=== PATIENT | male | born 1935 | race Caucasian/White ===

== ENCOUNTER 2016-11-06 04:53 | Observation (INO) | payer MEDICARE, OTHER ==
[~2016-11-06] VITALS: Ht 175.3 cm; Wt 75.0 kg
[2016-11-06] VITALS (8 sets, daily range): BP systolic 128–152; BP diastolic 56–80; PULSE 77–110; RESP 17–20; TEMP 96.2–98.7; O2SAT 96–99
[~2016-11-06 04:53] MED LIST: CIPR500T2 PO; DARV PO; LORT5TAB PO; TERA10CA3 PO
--- NOTE | 2016-11-06 05:09 | PD ---
HPI Chief Complaint: hematuria Time Seen by Provider: 04:57 Travel History International Travel<30 days: No Contact w/Intl Traveler<30days: No Traveled to known affect area: No History of Present Illness HPI The patient is a 81-year-old male who presents emergency department via EMS for difficulty urination and hematuria. The patient does have a history of benign prostatic hypertrophy with previous surgery and Ma catheter placement. The patient notes increasing pain or last several days with difficulty urinating as well as hematuria. EMS states the patient had blood within his adult diapers as well as over his palmar legs down to his left leg. The patient denies taking any blood thinners, however, cannot recall the name of the medication his doctor prescribes him. The patient denies any nausea, vomiting, or abdominal pain. He does complain of suprapubic discomfort and pain with urination. PFSH Past Medical History Autoimmune Disease: No Blood Disorders: No Cancer: No Diabetes: No Endocrine: No Gastrointestinal Disorders: No Genitourinary: Yes Hypertension: Yes Immune Disorder: No Musculoskeletal: No Neurologic: No Psychiatric: No Respiratory: No Thyroid Disease: No Past Surgical History AICD: No Joint Replacement: No Pacemaker: No Other Surgery: Yes (ENLARGED PROSTATE, SURGERY ON 08/21/07) Social History Alcohol Use: No Tobacco Use: No Substance Use: No Allergies-Medications (Allergen,Severity, Reaction): Coded Allergies: No Known Allergies (Verified , 11/06/16) Reported Meds & Prescriptions Reported Meds & Active Scripts Active Darvocet-N 100 (Propoxyphene Napsylate/Acetam) Tab 1 Tab PO Q4-6HPRN FOR PAIN Cipro (Ciprofloxacin) 500 Mg Tab 500 Mg PO BID Darvocet-N 100 (Propoxyphene Napsylate/Acetam) Tab 1 Tab PO Q4-6HPRN FOR PAIN Reported Hytrin (Terazosin HCl) 10 Mg Cap 10 Mg PO HS Cipro (Ciprofloxacin) 500 Mg Tab 500 Mg PO BID Lortab 5/500 (Acetaminophen/Hydrocodone Bitart) 5 Mg/500 Mg Tab 1-2 Tab PO Q4- 6HPRN FOR PAIN Review of Systems Except as stated in HPI: all other systems reviewed are Neg General / Constitutional: No: Fever Gastrointestinal: No: Nausea, Vomiting, Abdominal Pain Genitourinary: Positive: Hematuria, Pelvic Pain (suprapubic discomfort) Physical Exam Narrative GENERAL: Awake, alert, pleasant 81-year-old male who appears his stated age and is in no acute respiratory distress. SKIN: Warm and dry. HEAD: Atraumatic. Normocephalic. EYES: Pupils equal and round. No scleral icterus. No injection or drainage. ENT: No nasal bleeding or discharge. Mucous membranes pink and moist. NECK: Trachea midline. No JVD. GASTROINTESTINAL: Abdomen soft, non-tender, nondistended. No rebound tenderness. No obvious distention. Genitourinary: Circumcised phallus with blood at the meatus. Blood in the inside of the adult diapers. Both testicles are descended and nontender. MUSCULOSKELETAL: No obvious deformities. No clubbing. No cyanosis. No edema. NEUROLOGICAL: Awake and alert. No obvious cranial nerve deficits. Motor grossly within normal limits. Normal speech. PSYCHIATRIC: Appropriate mood and affect; insight and judgment normal. Data Data Last Documented VS Vital Signs Date Time Temp Pulse Resp B/P Pulse Ox O2 Delivery O2 Flow Rate FiO2 11/06/16 05:13 98.7 104 20 135/80 99 Orders Complete Blood Count With Diff (11/06/16 05:02) Basic Metabolic Panel (Bmp) (11/06/16 05:02) Urinalysis - C+S If Indicated (11/06/16 05:02) Act Partial Throm Time (Ptt) (11/06/16 05:02) Prothrombin Time / Inr (Pt) (11/06/16 05:02) Urinary Catheter Insert/Apply (11/06/16 05:02) Morphine Inj (Morphine Inj) (11/06/16 06:45) Ondansetron Inj (Zofran Inj) (11/06/16 06:45) Consult Urology (11/06/16 ) Urine Culture (11/06/16 06:05) (Hub Use Only)Inp Phy Cons/Ref (11/06/16 06:56) Ceftriaxone Inj (Rocephin Inj) (11/06/16 07:00) Admit Order (Ed Use Only) (11/06/16 06:57) Labs Laboratory Tests Test 11/06/16 11/06/16 05:10 06:05 White Blood Count 10.7 TH/MM3 Red Blood Count 4.14 MIL/MM3 Hemoglobin 12.4 GM/DL Hematocrit 36.6 % Mean Corpuscular Volume 88.5 FL Mean Corpuscular Hemoglobin 29.9 PG Mean Corpuscular Hemoglobin 33.7 % Concent Red Cell Distribution Width 17.5 % Platelet Count 183 TH/MM3 Mean Platelet Volume 9.5 FL Neutrophils (%) (Auto) 87.1 % Lymphocytes (%) (Auto) 9.1 % Monocytes (%) (Auto) 3.4 % Eosinophils (%) (Auto) 0.2 % Basophils (%) (Auto) 0.2 % Neutrophils # (Auto) 9.3 TH/MM3 Lymphocytes # (Auto) 1.0 TH/MM3 Monocytes # (Auto) 0.4 TH/MM3 Eosinophils # (Auto) 0.0 TH/MM3 Basophils # (Auto) 0.0 TH/MM3 CBC Comment DIFF FINAL Differential Comment Prothrombin Time 10.9 SEC Prothromb Time International 1.0 RATIO Ratio Activated Partial 25.3 SEC Thromboplast Time Sodium Level 142 MEQ/L Potassium Level 3.7 MEQ/L Chloride Level 109 MEQ/L Carbon Dioxide Level 24.4 MEQ/L Anion Gap 9 MEQ/L Blood Urea Nitrogen 23 MG/DL Creatinine 1.19 MG/DL Estimat Glomerular Filtration 59 ML/MIN Rate Random Glucose 159 MG/DL Calcium Level 7.7 MG/DL Urine Color DARK-RED Urine Turbidity CLOUDY Urine pH 6.5 Urine Specific [employer] 1.025 Urine Protein 100 mg/dL Urine Glucose (UA) NEG mg/dL Urine Ketones NEG mg/dL Urine Occult Blood MOD Urine Nitrite NEG Urine Bilirubin NEG Urine Urobilinogen LESS THAN 2.0 MG/DL Urine Leukocyte Esterase TRACE Urine RBC /hpf Urine WBC /hpf Microscopic Urinalysis Comment CULTURE INDICATED MDM Medical Decision Making Medical Screen Exam Complete: Yes Emergency Medical Condition: Yes Medical Record Reviewed: Yes Interpretation(s) Laboratory Tests Test 11/06/16 11/06/16 05:10 06:05 White Blood Count 10.7 TH/MM3 Red Blood Count 4.14 MIL/MM3 Hemoglobin 12.4 GM/DL Hematocrit 36.6 % Mean Corpuscular Volume 88.5 FL Mean Corpuscular Hemoglobin 29.9 PG Mean Corpuscular Hemoglobin 33.7 % Concent Red Cell Distribution Width 17.5 % Platelet Count 183 TH/MM3 Mean Platelet Volume 9.5 FL Neutrophils (%) (Auto) 87.1 % Lymphocytes (%) (Auto) 9.1 % Monocytes (%) (Auto) 3.4 % Eosinophils (%) (Auto) 0.2 % Basophils (%) (Auto) 0.2 % Neutrophils # (Auto) 9.3 TH/MM3 Lymphocytes # (Auto) 1.0 TH/MM3 Monocytes # (Auto) 0.4 TH/MM3 Eosinophils # (Auto) 0.0 TH/MM3 Basophils # (Auto) 0.0 TH/MM3 CBC Comment DIFF FINAL Differential Comment Prothrombin Time 10.9 SEC Prothromb Time International 1.0 RATIO Ratio Activated Partial 25.3 SEC Thromboplast Time Sodium Level 142 MEQ/L Potassium Level 3.7 MEQ/L Chloride Level 109 MEQ/L Carbon Dioxide Level 24.4 MEQ/L Anion Gap 9 MEQ/L Blood Urea Nitrogen 23 MG/DL Creatinine 1.19 MG/DL Estimat Glomerular Filtration 59 ML/MIN Rate Random Glucose 159 MG/DL Calcium Level 7.7 MG/DL Urine Color DARK-RED Urine Turbidity CLOUDY Urine pH 6.5 Urine Specific [employer] 1.025 Urine Protein 100 mg/dL Urine Glucose (UA) NEG mg/dL Urine Ketones NEG mg/dL Urine Occult Blood MOD Urine Nitrite NEG Urine Bilirubin NEG Urine Urobilinogen LESS THAN 2.0 MG/DL Urine Leukocyte Esterase TRACE Urine RBC /hpf Urine WBC /hpf Microscopic Urinalysis Comment CULTURE INDICATED Differential Diagnosis Differential diagnosis includes BPH, urethral stricture, hemorrhagic cystitis, UTI, bladder cancer, obstructive uropathy. Narrative Course IV was established, labs are drawn and sent, and the patient was placed on cardiac telemetry monitoring and continuous pulse oximetry monitoring. Ma catheter was placed and UA was sent to lab. The patient had significant spasm with Ma catheter in place with very little output. Therefore, the Ma was irrigated with minimal output. Therefore, continuous bladder irrigation was started, the patient appeared to have significant hematuria with irrigation and significant pain. The patient was then provided morphine and Zofran for his discomfort and a larger Ma catheter was placed. The patient continue to have spasm, however, did have output with continuous bladder irrigation. The patient will need 23 hour observation and urology evaluation. Therefore, the on -call urologist was paged at 6:47 AM. The patient does not know the name of his primary physician, therefore, the on-call medical service was paged for observation. I discussed the plan of care with Dr. Scaglia, the on-call urologist, who agrees with continuous bladder irrigation reevaluation by Titi Bueno, the orthopedic/urology radio electronics technician. The UA did reveal innumerable RBCs and WBCs, therefore, patient was covered with Rocephin 1 g intravenously. Patient will be 23 hour observation, the patient and family are comfortable with this plan of care and disposition. Physician Communication Physician Communication The on-call medical service was paged for observation. The on-call urologist was also paged. I discussed the patient with Dr. Roberts. I discussed the patient with Dr. Kenyon who agrees with 23 hour observation. Diagnosis Primary Impression: Obstructive uropathy Additional Impression: Hematuria Admitting Information Admitting Physician Requests: Observation Condition: Stable Ryan Avitia MD Nov 06, 2016 05:09
[2016-11-06 05:44] LABS: AUTOMATED NEUTROPHIL # 9.3 TH/MM3 (1.8-7.7); BASOPHIL % 0.2 % (0.0-2.0); EOSINOPHIL % 0.2 % (0.0-4.0); HEMATOCRIT 36.6 % (39.0-51.0); HEMO FLAGS DIFF FINAL; LYMPH % 9.1 % (9.0-44.0); MEAN CELL VOLUME 88.5 FL (80.0-100.0); MEAN CORPUSCULAR HEMOGLOBIN 29.9 PG (27.0-34.0); MEAN CORPUSCULAR HGB CONC 33.7 % (32.0-36.0); MONO % 3.4 % (0.0-8.0); NEUT % 87.1 % (16.0-70.0); PLATELET COUNT 183 TH/MM3 (150-450); RED BLOOD COUNT 4.14 MIL/MM3 (4.50-5.90); RED CELL DISTRIBUTION WIDTH 17.5 % (11.6-17.2); WHITE BLOOD COUNT 10.7 TH/MM3 (4.0-11.0)
[2016-11-06 05:54] LABS: APTT (PATIENT) 25.3 SEC (24.3-30.1); BICARBONATE 24.4 MEQ/L (21.0-32.0); POTASSIUM 3.7 MEQ/L (3.5-5.1); PROTHROMBIN TIME - PATIENT 10.9 SEC (9.8-11.6)
[2016-11-06] MEDS ORDERED: MORPHINE SULFATE 4 MG/ML INJ IV PUSH ONE (06:45)
[2016-11-06] MEDS ORDERED: ONDANSETRON HCL 4 MG/2 ML VIAL IV PUSH ONE ×2 (06:45→12:00)
[2016-11-06 06:52] LABS: BLOOD, URINE MOD (NEG); GLUCOSE,URINE NEG (NEG); KETONE, URINE NEG (NEG); NITRITE,URINE NEG (NEG); PH, URINE 6.5 (5.0-8.5); URINE COLOR DARK-RED (YELLW/STRAW)
[2016-11-06 06:53] LABS: COMMENT (UR) CULTURE INDICATED; CULTURE IF INDICATED CULTURE INDICATED
[2016-11-06] MEDS ORDERED: cefTRIAXone INJ 1,000 MG in SODIUM CHLORIDE 0.9% INJ 100 ML IV ONE (07:00)
[2016-11-06] MEDS ORDERED: SODIUM CHLORIDE 0.9% FLUSH 5 ML FLUSH FLUSH PRN (07:15)
[2016-11-06] MEDS ORDERED: NALOXONE HCL 0.4 MG/ML AMP IV PRN (07:15)
[2016-11-06] MEDS: MORPHINE SULFATE 4 MG/ML INJ IV PUSH PRN ×2 (08:25→12:31)
[2016-11-06] MEDS: SODIUM CHLORIDE 0.9% FLUSH 5 ML FLUSH FLUSH SCH ×2 (09:00→21:34)
--- NOTE | 2016-11-06 09:11 | HHI.HP ---
[facility] Unknown Admission Diagnosis obstructive uropathy with hematuria, complicated UTI Diagnoses: Chief Complaint: Hematuria Travel History International Travel<30 Days: No Contact w/Intl Traveler <30 Da: No Traveled to Known Affected Are: No History of Present Illness 81-year-old male with history of BPH and questionable hypertension who presented with gross hematuria. He is a very poor historian and I get a sense that he does not follow regularly with . He reports a history of enlarged prostate and previously saw a urologist but he does not know the name. He knows he takes one medication for his prostate. Patient reports the hematuria started yesterday and went on all day. He called EMS when the hematuria persisted and he continues to experience persistent pain in the suprapubic area and during urination. He denies any nausea or vomiting. No fevers or chills. ER physician discussed the case with urology recommended admission for further workup and treatment. Patient currently with ongoing bladder irrigation. He is still draining pink fluid and at times as clot around the Ma. He reports that the pain improves with morphine but he still have episodes of spasm. Review of Systems Constitutional: DENIES: Fatigue, Fever, Night Sweats Genitourinary: COMPLAINS OF: Urgency, Hematuria, Dysuria Except as stated in HPI: all other systems reviewed are Neg Past Family Social History Past Medical History BPH Hypertension Past Surgical History TURP Reported Medications "Prostate medication" patient does not know the name. Allergies: Coded Allergies: No Known Allergies (Verified , 11/06/16) Family History Father of heart attack. Social History Patient denies using tobacco, alcohol or illicit drugs. Physical Exam Vital Signs Vital Signs Date Time Temp Pulse Resp B/P Pulse Ox O2 Delivery O2 Flow Rate FiO2 11/06/16 07:12 98.4 110 18 152/71 98 Room Air 11/06/16 05:13 98.7 104 20 135/80 99 Physical Exam GENERAL: Elderly male. He appears to be in some discomfort. SKIN: No rashes, ecchymoses or lesions. Cool and dry. NECK: Trachea midline. No JVD or lymphadenopathy. Supple, nontender, no meningeal signs. CARDIOVASCULAR: Regular rate and rhythm without murmurs, gallops, or rubs. RESPIRATORY: Clear to auscultation. Breath sounds equal bilaterally. No wheezes , rales, or rhonchi. GASTROINTESTINAL: Abdomen soft, he does have some suprapubic tenderness : Ma is in place plan. Some bloody fluid drainage around the Ma MUSCULOSKELETAL: Extremities without clubbing, cyanosis, or edema. Negative Homans sign bilaterally. NEUROLOGICAL: Awake and alert. Normal speech. Laboratory Laboratory Tests Test 11/06/16 11/06/16 05:10 06:05 White Blood Count 10.7 Red Blood Count 4.14 Hemoglobin 12.4 Hematocrit 36.6 Mean Corpuscular Volume 88.5 Mean Corpuscular Hemoglobin 29.9 Mean Corpuscular Hemoglobin 33.7 Concent Red Cell Distribution Width 17.5 Platelet Count 183 Mean Platelet Volume 9.5 Neutrophils (%) (Auto) 87.1 Lymphocytes (%) (Auto) 9.1 Monocytes (%) (Auto) 3.4 Eosinophils (%) (Auto) 0.2 Basophils (%) (Auto) 0.2 Neutrophils # (Auto) 9.3 Lymphocytes # (Auto) 1.0 Monocytes # (Auto) 0.4 Eosinophils # (Auto) 0.0 Basophils # (Auto) 0.0 CBC Comment DIFF FINAL Differential Comment Prothrombin Time 10.9 Prothromb Time International 1.0 Ratio Activated Partial 25.3 Thromboplast Time Sodium Level 142 Potassium Level 3.7 Chloride Level 109 Carbon Dioxide Level 24.4 Anion Gap 9 Blood Urea Nitrogen 23 Creatinine 1.19 Estimat Glomerular Filtration 59 Rate Random Glucose 159 Calcium Level 7.7 Urine Color DARK-RED Urine Turbidity CLOUDY Urine pH 6.5 Urine Specific [place] 1.025 Urine Protein 100 Urine Glucose (UA) NEG Urine Ketones NEG Urine Occult Blood MOD Urine Nitrite NEG Urine Bilirubin NEG Urine Urobilinogen LESS THAN 2.0 Urine Leukocyte Esterase TRACE Urine RBC Urine WBC Microscopic Urinalysis Comment CULTURE INDICATED Date/Time Procedure Status Source Growth 11/06/16 06:05 Urine Culture Received Urine Clean Catch Pending Result Diagram: 11/06/16 0510 11/06/16 0510 Assessment and Plan Problem List: (1) Obstructive uropathy ICD Code: N13.9 Status: Acute (2) Hematuria ICD Code: R31.9 Status: Acute (3) BPH (benign prostatic hyperplasia) ICD Code: N40.0 Status: Acute (4) Hypertension ICD Code: I10 Status: Acute Assessment and Plan 81-year-old male with gross hematuria probably due to obstructive uropathy. Obstructive uropathy, hematuria: Known history of BPH. Patient does not know the name of his urologist. - On-call urologist has been consulted. Appreciate recommendations. - Ongoing bladder irrigation. Continue. - Morphine as needed for pain control. Will add Detrol to help with spasm. Acute blood loss anemia: Secondary to above. - Follow serial H&H and transfuse for hemoglobin less than 8. Hypertension: Currently on no medications at home. Blood pressure. Be acceptable. - Continue to monitor. Vasotec as needed. Abnormal urinalysis: He has been given Rocephin. Follow urine culture. Marah Lyon MD Nov 06, 2016 09:11
[2016-11-06] MEDS: OXYBUTYNIN CHLORIDE 5 MG TAB PO SCH ×3 (09:48→21:34)
[2016-11-06] MEDS: TAMSULOSIN HCL 0.4 MG CAP PO SCH (09:48)
[2016-11-06 11:42] LABS: HEMATOCRIT 34.8 % (39.0-51.0)
[2016-11-06 11:44] LABS: REVIEW FLAG FINAL
[2016-11-06] MEDS ORDERED: ePHEDrine/NS 25 MG/5 ML SYR IV ONE (12:00)
[2016-11-06] MEDS ORDERED: LACTATED RINGER'S 1000 ML INJ 1,000 ML IV ONE (12:00)
[2016-11-06] MEDS ORDERED: NEOSTIGMINE 3 MG/3 ML SYR IV ONE (12:00)
[2016-11-06] MEDS ORDERED: PROPOFOL 200 MG/20 ML AMP IV ONE (12:00)
[2016-11-06] MEDS ORDERED: PHENYLEPH/NS 1000 MCG/10 ML SYR IV ONE (12:00)
[2016-11-06] MEDS ORDERED: EPINEPHrine HCL (1:10,000) 1 MG/10 ML SYRINGE IV ONE (12:00)
--- NOTE | 2016-11-06 12:32 | PD.CONS ---
[facility] Service Urology Consult Requested By Reason for Consult Gross hematuria Primary Care Physician Unknown Diagnosis: History of Present Illness 81-year-old gentleman with history BPH who presented to emergency room with a 2 day history of difficulty urinating and gross hematuria. Upon arrival to the emergency room the patient was also complaining of significant suprapubic discomfort and a Ma catheter was placed with evacuation of a small amount of bloody urine. The Ma catheter was exchanged for a 3 way unit and patient connected to continuous bladder irrigation. A urology consult was placed for further recommendations and management. At the time of consultation the patient was resting quietly in bed and reported that his suprapubic pain had resolved. The three-way Ma catheter was draining medium red urine with a moderate in flow rate. Patient reports undergoing a TURP back in 2006 but has not followed up with his urologist Dr. Chandler for quite some time. Patient denied any evidence of flank pain or generalized abdominal pain. Denies the use of blood thinners. Review of Systems Constitutional: DENIES: Fever, Night Sweats Cardiovascular: DENIES: Chest pain Gastrointestinal: DENIES: Abdominal pain Genitourinary: COMPLAINS OF: Hematuria, Dysuria Musculoskeletal: DENIES: Back pain Except as stated in HPI: all other systems reviewed are Neg Past Family Social History Past Medical History BPH Hypertension Past Surgical History TURP in August 2007 Reported Medications Refer to EMR Allergies: Coded Allergies: No Known Allergies (Verified , 11/06/16) Active Ordered Medications Refer to EMR Family History Reviewed and noncontributory Social History Denies tobacco, alcohol or intravenous drug abuse Physical Exam Vital Signs Vital Signs Date Time Temp Pulse Resp B/P Pulse Ox O2 Delivery O2 Flow Rate FiO2 11/06/16 10:30 98 18 131/80 98 Room Air 11/06/16 07:12 98.4 110 18 152/71 98 Room Air 11/06/16 05:13 98.7 104 20 135/80 99 Physical Exam GENERAL: This is a well-nourished, well-developed patient, in no apparent distress. SKIN: No rashes, ecchymoses or lesions. Cool and dry. HEAD: Atraumatic. Normocephalic. No temporal or scalp tenderness. EYES: Pupils equal round and reactive. Extraocular motions intact. No scleral icterus. No injection or drainage. ENT: Nose without bleeding, purulent drainage or septal hematoma. Throat without erythema, tonsillar hypertrophy or exudate. Uvula midline. Airway patent. NECK: Trachea midline. No JVD or lymphadenopathy. Supple, nontender, no meningeal signs. CARDIOVASCULAR: Regular rate and rhythm without murmurs, gallops, or rubs. RESPIRATORY: Clear to auscultation. Breath sounds equal bilaterally. No wheezes , rales, or rhonchi. GASTROINTESTINAL: Abdomen soft, non-tender, nondistended. No hepato-splenomegaly , or palpable masses. No guarding. GENITOURINARY: Three-way Ma catheter in place draining grossly bloody urine. Bladder not distended. MUSCULOSKELETAL: Extremities without clubbing, cyanosis, or edema. No joint tenderness, effusion, or edema noted. No calf tenderness. Negative Homans sign bilaterally. NEUROLOGICAL: Awake and alert. Cranial nerves II through XII intact. Motor and sensory grossly within normal limits. Five out of 5 muscle strength in all muscle groups. Normal speech. Laboratory Laboratory Tests Test 11/06/16 11/06/16 11/06/16 05:10 06:05 11:08 White Blood Count 10.7 Red Blood Count 4.14 Hemoglobin 12.4 11.8 Hematocrit 36.6 34.8 Mean Corpuscular Volume 88.5 Mean Corpuscular Hemoglobin 29.9 Mean Corpuscular Hemoglobin 33.7 Concent Red Cell Distribution Width 17.5 Platelet Count 183 Mean Platelet Volume 9.5 Neutrophils (%) (Auto) 87.1 Lymphocytes (%) (Auto) 9.1 Monocytes (%) (Auto) 3.4 Eosinophils (%) (Auto) 0.2 Basophils (%) (Auto) 0.2 Neutrophils # (Auto) 9.3 Lymphocytes # (Auto) 1.0 Monocytes # (Auto) 0.4 Eosinophils # (Auto) 0.0 Basophils # (Auto) 0.0 CBC Comment DIFF FINAL Differential Comment Prothrombin Time 10.9 Prothromb Time International 1.0 Ratio Activated Partial 25.3 Thromboplast Time Sodium Level 142 Potassium Level 3.7 Chloride Level 109 Carbon Dioxide Level 24.4 Anion Gap 9 Blood Urea Nitrogen 23 Creatinine 1.19 Estimat Glomerular Filtration 59 Rate Random Glucose 159 Calcium Level 7.7 Urine Color DARK-RED Urine Turbidity CLOUDY Urine pH 6.5 Urine Specific [place] 1.025 Urine Protein 100 Urine Glucose (UA) NEG Urine Ketones NEG Urine Occult Blood MOD Urine Nitrite NEG Urine Bilirubin NEG Urine Urobilinogen LESS THAN 2.0 Urine Leukocyte Esterase TRACE Urine RBC Urine WBC Microscopic Urinalysis Comment CULTURE INDICATED Blood Type O POSITIVE Blood Bank Comment Date/Time Procedure Status Source Growth 11/06/16 06:05 Urine Culture Received Urine Clean Catch Pending Result Diagram: 11/06/16 1108 11/06/16 0510 Assessment and Plan Assessment and Plan Urologic impression: New onset gross hematuria with clot urinary retention of indeterminate etiology. Recommendations: #1 continue with continuous bladder irrigation and titrate to clear return #2 CT scan of the abdomen and pelvis with intravenous contrast #3 further recommendations pending review of CT scan. Hernando Roberts MD Nov 06, 2016 12:32
[2016-11-06] MEDS ORDERED: IOHEXOL 350 MG/ML 10 ML VIAL (for RAD DIAG) IV ONE (14:59)
[2016-11-06] MEDS ORDERED: FAMOTIDINE 20 MG/2 ML VIAL ONE (16:23)
[2016-11-06] MEDS ORDERED: SUGAMMADEX SODIUM 200 MG/2 ML VIAL IV PUSH ONE ×2 (16:23)
--- NOTE | 2016-11-06 16:27 | RADRPT ---
EXAM DATE/TIME: 11/06/2016 14:47 [place] COMPARISON: No previous studies available for comparison. INDICATIONS : Suprapubic discomfort for two days, difficulty urinating IV CONTRAST: 65 cc Omnipaque 350 (iohexol) IV ORAL CONTRAST: No oral contrast ingested. RADIATION DOSE: 9.00 CTDIvol (mGy) MEDICAL HISTORY : Hypertension. BPH SURGICAL HISTORY : Prostatectomy. ENCOUNTER: Initial ACUITY: 2 days PAIN SCALE: 8/10 LOCATION: Abdomen TECHNIQUE: Volumetric scanning of the abdomen and pelvis was performed. Using automated exposure control and ad justment of the mA and/or kV according to patient size, radiation dose was kept as low as reasonably achievable to obtain optimal diagnostic quality images. FINDINGS: Examination quality is significantly degraded by patient motion. LOWER LUNGS: The visualized lower lungs are clear. There is coronary artery calcification. LIVER: Homogeneous density without lesion. There is no dilation of the biliary tree. No calcified gallston es. SPLEEN: Normal size without lesion. PANCREAS: No definite abnormality is appreciated. KIDNEYS: Normal in size and shape. There is no mass, stone or hydronephrosis. There is a 3 cm low-density les ion in the upper pole of the right kidney with density measurements consistent with a cyst. ADRENAL GLANDS: No abnormality is seen. VASCULAR: There is no aortic aneurysm. There is mild atherosclerotic disease. BOWEL/MESENTERY: There is a small hiatal hernia. Evaluation of the bowel is significantly limited due to artifact. The appendix extends into a right inguinal hernia. There are no signs of obstruction. No free intraperit harry air or fluid is seen. ABDOMINAL WALL: Within normal limits. RETROPERITONEUM: There is no lymphadenopathy. BLADDER: Urinary bladder is distended and contains high density material, air, a Ma catheter, and low-densi ty material. No wall thickening is appreciated. REPRODUCTIVE: Prostate gland is significantly enlarged. INGUINAL: There is a right inguinal hernia containing a noninflamed or obstructed appendix. MUSCULOSKELETAL: There are degenerative changes of the spine. CONCLUSION: 1. Urinary bladder is contains a Ma catheter and is distended with high density material likely re presenting blood products. There are also potential blood clots within the urinary bladder. 2. Marked prostatomegaly. 3. Nonacute findings include small hiatal hernia, moderate atherosclerotic disease comment 3 cm right renal cyst. 4. Please note that the quality of the examination is significantly degraded due to patient motion. Eduin Loo MD on November 06, 2016 at 16:19 Board Certified Radiologist. This report was verified electronically.
--- NOTE | 2016-11-06 17:59 | PD.OP ---
Operative Report Date of Surgery: Nov 06, 2016 Preoperative Diagnosis: (1) Gross hematuria Postoperative Diagnosis: (1) Gross hematuria Procedure: Cystoscopy, evacuation of clots and fulguration of bleeding sites within prostatic urethra Anesthesia: General Surgeon: Hernando Roberts Licensed Bondsman(s): None Operation and Findings: Indication for procedure: Case of a pleasant 81-year-old gentleman with history BPH who presents now with gross hematuria and clot urinary retention. Operative procedure in detail: Patient was brought to the operating suite and placed supine on the OR table. He was then placed under general anesthesia. He was then repositioned in the dorsal lithotomy position and prepped and draped sterile fashion. After appropriate timeout was undertaken proceeded with cystoscopic evaluation utilizing the rigid cystoscope with a 22 Mosotho sheath and 30 lens. The urethra was patent without stricture formation the prostatic urethra had some enlargement of the lateral lobes and median lobe however there was adequate size channel leading from the bladder outlet. Initially could not tell where the bleeding site was as the bladder was full of clots. The okeefe evacuated was utilized to evacuate the bladder wall clots. Cystoscopy was repeated and this time the bleeding site could be seen involving the prostatic urethra at the bladder neck region on the patient's right side. The Bugbee electrode was utilized to fulgurate the bleeding site. There were multiple dilated veins noted within the prostatic urethra and several of them were fulgurated as well an effort to prevent future episodes of gross hematuria. Inspection of urinary bladder failed to demonstrate any sites of active bleeding, tumors or calculi. The bladder itself was markedly trabeculated. The cystoscope was withdrawn and a 22 [place] 5 cc Ma catheter was placed and connected to gravity drainage. The patient tolerated the procedures without complications and was transferred to PACU in satisfactory condition. Hernando Roberts MD Nov 06, 2016 17:59
[2016-11-06] MEDS ORDERED: fentaNYL CITRATE 250 MCG/5 ML AMP ONE (18:24)
[2016-11-06] MEDS ORDERED: DO NOT ADM ANY ANTICOAGULANT DRUGS XX PRN (18:45)
[2016-11-06] MEDS ORDERED: ONDANSETRON HCL 4 MG/2 ML VIAL IV PUSH PRN (20:15)
[2016-11-06 22:16] LABS: HEMATOCRIT 31.3 % (39.0-51.0); REVIEW FLAG FINAL
[2016-11-07 04:11] VITALS: BP 132/65; PULSE 88; RESP 17; TEMP 98.3; O2SAT 95
[2016-11-07] MEDS: OXYBUTYNIN CHLORIDE 5 MG TAB PO SCH (05:01)
[2016-11-07 05:37] LABS: BASOPHIL % 0.1 % (0.0-2.0); HEMATOCRIT 28.8 % (39.0-51.0); LYMPHOCYTE # 1.8 TH/MM3 (1.0-4.8); MEAN CELL VOLUME 89.1 FL (80.0-100.0); MEAN CORPUSCULAR HEMOGLOBIN 29.3 PG (27.0-34.0); MEAN CORPUSCULAR HGB CONC 32.9 % (32.0-36.0); MONO % 5.6 % (0.0-8.0); NEUT % 81.3 % (16.0-70.0); PLATELET COUNT 178 TH/MM3 (150-450); RED BLOOD COUNT 3.23 MIL/MM3 (4.50-5.90); RED CELL DISTRIBUTION WIDTH 17.9 % (11.6-17.2); WHITE BLOOD COUNT 13.5 TH/MM3 (4.0-11.0)
[2016-11-07 05:43] LABS: HEMO FLAGS AUTO DIFF
[2016-11-07 05:55] LABS: POTASSIUM 4.2 MEQ/L (3.5-5.1)
[2016-11-07 06:50] LABS: SCAN/DIFF AUTO DIFF CONFIRMED
[2016-11-07] MEDS: TAMSULOSIN HCL 0.4 MG CAP PO SCH (07:54)
[2016-11-07] MEDS: SODIUM CHLORIDE 0.9% FLUSH 5 ML FLUSH FLUSH SCH (07:57)
[2016-11-07 08:01] VITALS: BP 142/65; PULSE 78; RESP 22; TEMP 97.2; O2SAT 96
--- NOTE | 2016-11-07 09:16 | HHI.PR ---
Subjective Remarks Patient reports that he is feeling great. No longer having pain. Ma is draining well. Urine is clear. Objective Vitals Vital Signs Date Time Temp Pulse Resp B/P Pulse Ox O2 Delivery O2 Flow Rate FiO2 11/07/16 08:01 97.2 78 22 142/65 96 11/07/16 04:11 98.3 88 17 132/65 95 11/06/16 23:45 96.2 89 17 128/61 96 11/06/16 22:31 97 11/06/16 22:10 77 11/06/16 20:00 96.4 94 17 140/65 96 11/06/16 18:45 98.5 87 15 139/74 97 Room Air 11/06/16 18:30 86 15 138/70 100 Nasal Cannula 2 11/06/16 18:15 88 16 132/73 100 Nasal Cannula 2 11/06/16 18:10 98.4 93 15 142/70 100 Nasal Cannula 2 11/06/16 15:43 96.3 100 18 133/56 99 11/06/16 10:30 98 18 131/80 98 Room Air I/O 11/06/16 11/06/16 11/06/16 11/07/16 11/07/16 11/07/16 07:00 15:00 23:00 07:00 15:00 23:00 Intake Total 1100 ml 360 ml Output Total 9000 ml 300 ml 400 ml Balance -9000 ml 800 ml -40 ml Intake Oral 360 ml IV Total 0 ml 0 ml Other 1100 ml Output Urine Total 9000 ml 200 ml 400 ml Estimated Blood Loss 100 ml # Voids 0 Result Diagram: 11/07/16 0502 11/07/16 0512 Imaging Last Impressions Abdomen/Pelvis CT 11/06/16 0000 Signed Impressions: Service Date/Time: October 14:47 - CONCLUSION: 1. Urinary bladder is contains a Ma catheter and is distended with high density material likely representing blood products. There are also potential blood clots within the urinary bladder. 2. Marked prostatomegaly. 3. Nonacute findings include small hiatal hernia, moderate atherosclerotic disease comment 3 cm right renal cyst. 4. Please note that the quality of the examination is significantly degraded due to patient motion. Eduin Loo MD Objective Remarks GENERAL: This is a well-nourished, well-developed patient, in no apparent distress. CARDIOVASCULAR: Normal rate and regular rhythm without murmurs, gallops, or rubs. RESPIRATORY: Good respiratory efforts. Breath sounds equal and clear to auscultation bilaterally. GASTROINTESTINAL: Abdomen soft, non-tender, non-distended. Normal active bowel sounds MUSCULOSKELETAL: Extremities without cyanosis, or edema. NEURO: Alert & Oriented x4 to person, place, time, situation. Moves all ext x4 PSYCH: Appropriate mood and affect. Procedures Cystoscopy with cauterization of bleeding from the bladder, evacuation of blood clot by Dr. Roberts A/P Problem List: (1) Obstructive uropathy ICD Code: N13.9 Status: Acute (2) Hematuria ICD Code: R31.9 Status: Acute (3) BPH (benign prostatic hyperplasia) ICD Code: N40.0 Status: Acute (4) Hypertension ICD Code: I10 Status: Acute Assessment and Plan 81-year-old male with gross hematuria probably due to obstructive uropathy. The patient was admitted. He was followed by urology, Dr. Roberts and underwent cystoscopy. He was found to have many blood clots in the bladder and dilated veins in the prostatic urethra. The bleeding sites were cauterized. The patient did very well postoperatively. His urine cleared up and his pain resolved. He was cleared by urology for discharge. He is to maintain the Ma in follow-up in the urology clinic. He was discharged on Flomax. Acute blood loss anemia: Secondary to above. -Patient H&H dropped but stabilized once bleeding resolved. And asymptomatic from that standpoint. History of Hypertension: Blood pressure remain acceptable. He did not require any blood pressure medications. Advised a heart healthy diet with low-sodium. Abnormal urinalysis: He was given a dose of Rocephin. Follow-up urine culture was negative. The patient is discharge in good condition Follow-up with: Urology Diet: Heart healthy Activity: Regular as tolerated Meds: Per med rec Marah Lyon MD Nov 07, 2016 09:16
[2016-11-07] MEDS ORDERED: TAMS5CAP PO (09:20)
--- NOTE | 2016-11-07 09:20 | HHI.DCPOC ---
Discharge Care Plan Diagnosis: (1) Hematuria (2) Obstructive uropathy (3) Gross hematuria (4) BPH (benign prostatic hyperplasia) (5) Hypertension Goals to Promote Your Health * To prevent worsening of your condition and complications * To maintain your health at the optimal level Directions to Meet Your Goals Take your medications as prescribed Follow your dietary instruction Follow activity as directed Keep your appointments as scheduled Take your immunizations and boosters as scheduled If your symptoms worsen call your PCP, if no PCP go to Urgent Care Center or Emergency Room Smoking is Dangerous to Your Health. Avoid second hand smoke Call the 24-hour hour crisis hotline for domestic abuse at Marah Lyon MD Nov 07, 2016 09:20
--- NOTE | 2016-11-07 17:22 | EKG ---
Date Performed: 11/06/2016 Time Performed: 16:10:45 PTAGE: 81 years EKG: Sinus rhythm NONSPECIFIC T-WAVE ABNORMALITY BORDERLINE ECG NO PREVIOUS TRACING DOCTOR: Malu Villarreal Interpretating Date/Time 11/07/2016 17:16:55
== END 2016-11-07 11:55 | disposition home or self-care (01) ==
LOC: NEPE 04:53 → NEDA 06:58 → NEDH 11:10 → NEPHCDU 13:28 → N07B 18:15 → N07A 19:37
PROVIDERS: ADMIT Family Medicine; ATTEND Family Medicine
DX: N13.8 Other obstructive and reflux uropathy (principal); N40.1 Benign prostatic hyperplasia with lower urinary tract symptoms; R39.198 Other difficulties with micturition; R31.0 Gross hematuria; R33.8 Other retention of urine; I10 Essential (primary) hypertension; D64.9 Anemia, unspecified; N32.89 Other specified disorders of bladder
CPT/HCPCS: 00910; 52001; 74177; 80048; 81001; 85014; 85018; 85025; 85610; 85730; 86850; 86900; 86901; 87086; 93005; 99285; G0378; J0171; J0696; J2270; J2370; J2405; J2710; J3010; J7120; Q9967; 51700; 51702

== ENCOUNTER 2017-11-10 11:29 | Inpatient (IN) | payer MEDICARE, OTHER ==
[~2017-11-10] VITALS: Ht 167.6 cm; Wt 61.5 kg
[2017-11-10] VITALS (7 sets, daily range): BP systolic 162–216; BP diastolic 60–92; PULSE 61–81; RESP 18–21; TEMP 97.8–98.2; O2SAT 95–100
[~2017-11-10 11:29] MED LIST changes: -CIPR500T2 PO; -DARV PO; -LORT5TAB PO; +TAMS5CAP PO; -TERA10CA3 PO
--- NOTE | 2017-11-10 12:18 | PD ---
HPI Chief Complaint: Complaint Time Seen by Provider: 12:03 Travel History International Travel<30 days: No Contact w/Intl Traveler<30days: No Traveled to known affect area: No History of Present Illness HPI 82-year-old male complained of dysuria, hematuria and urinary retention. Patient states the symptoms started last night. Patient has history of obstructive uropathy, hematuria, BPH and hypertension. Patient only on Flomax daily. Patient was admitted to [facility] last year and had cystoscopy done by Dr. Roberts. Patient was found to have blood clots in the bladder and dilated veins in the prostatic urethra. The bleeding site was cauterized. Patient did well and was discharged home. Patient states that he has been doing well since then. Patient denies any headache. Patient denies any chest pain or shortness of breath. Patient states that he has mild discomfort in the lower abdomen suprapubic area. Patient denies any pain radiation. Patient denies any fever chills. Patient denies any back pain. PFSH Past Medical History Autoimmune Disease: No Blood Disorders: No Cancer: No Diabetes: No Diminished Hearing: Yes (hearing aids.) Endocrine: No Gastrointestinal Disorders: No Genitourinary: Yes Hypertension: Yes Immune Disorder: No Musculoskeletal: No Neurologic: No Psychiatric: No Respiratory: No Thyroid Disease: No Tetanus Vaccination: Unknown Influenza Vaccination: No Past Surgical History AICD: No Joint Replacement: No Pacemaker: No Prostatectomy: Yes Other Surgery: Yes (ENLARGED PROSTATE, SURGERY ON 08/21/07) Social History Alcohol Use: No Tobacco Use: Yes ( DAY) Substance Use: No Allergies-Medications (Allergen,Severity, Reaction): Coded Allergies: No Known Allergies (Verified Adverse Reaction, Unknown, 11/10/17) Reported Meds & Prescriptions Reported Meds & Active Scripts Active Flomax (Tamsulosin HCl) 0.4 Mg Cap 0.4 Mg PO DAILY Review of Systems General / Constitutional: No: Fever Eyes: No: Visual changes HENT: No: Headaches Cardiovascular: No: Chest Pain or Discomfort Respiratory: No: Shortness of Breath Gastrointestinal: No: Abdominal Pain Genitourinary: Positive: Dysuria, Hematuria Musculoskeletal: No: Pain Skin: No Rash Neurologic: No: Weakness Psychiatric: No: Depression Endocrine: No: Polydipsia Hematologic/Lymphatic: No: Easy Bruising Physical Exam Narrative GENERAL: Well-nourished, well-developed patient. SKIN: Focused skin assessment warm/dry. HEAD: Normocephalic. EYES: No scleral icterus. No injection or drainage. NECK: Supple, trachea midline. No JVD or lymphadenopathy. CARDIOVASCULAR: Regular rate and rhythm without murmurs, gallops, or rubs. RESPIRATORY: Breath sounds equal bilaterally. No accessory muscle use. GASTROINTESTINAL: Abdomen soft, nondistended. Patient has mild tenderness to palpation suprapubic area. No rebound tenderness. No mass. MUSCULOSKELETAL: No cyanosis, or edema. BACK: Nontender without obvious deformity. No CVA tenderness. exam: No active bleeding per urethra. No penile lesions noted. No tenderness on palpation of scrotum area. Neurologic exam: Patient is awake and alert oriented 3. No obvious focal deficit. Data Data Last Documented VS Vital Signs Date Time Temp Pulse Resp B/P (MAP) Pulse Ox O2 Delivery O2 Flow Rate FiO2 11/10/17 12:13 64 19 194/85 (121) 97 Room Air 11/10/17 11:44 97.8 Orders Orders Complete Blood Count With Diff (11/10/17 12:10) Comprehensive Metabolic Panel (11/10/17 12:10) Prothrombin Time / Inr (Pt) (11/10/17 12:10) Act Partial Throm Time (Ptt) (11/10/17 12:10) Urinalysis - C+S If Indicated (11/10/17 12:10) Chest, Single Ap (11/10/17 12:10) Ct Abd/Pel W/O Iv Contrast (11/10/17 12:10) Iv Access Insert/Monitor (11/10/17 12:10) Ecg Monitoring (11/10/17 12:10) Oximetry (11/10/17 12:10) Urinary Catheter Insert/Apply (11/10/17 12:10) Lidocaine 2% Jelly (Xylocaine 2% Jelly) (11/10/17 12:30) Urine Culture (11/10/17 12:20) Labs Laboratory Tests Test 11/10/17 12:20 White Blood Count 9.7 TH/MM3 Red Blood Count 5.13 MIL/MM3 Hemoglobin 15.2 GM/DL Hematocrit 45.8 % Mean Corpuscular Volume 89.3 FL Mean Corpuscular Hemoglobin 29.7 PG Mean Corpuscular Hemoglobin Concent 33.3 % Red Cell Distribution Width 18.0 % Platelet Count 171 TH/MM3 Mean Platelet Volume 9.4 FL Neutrophils (%) (Auto) 55.4 % Lymphocytes (%) (Auto) 38.6 % Monocytes (%) (Auto) 4.8 % Eosinophils (%) (Auto) 0.8 % Basophils (%) (Auto) 0.4 % Neutrophils # (Auto) 5.4 TH/MM3 Lymphocytes # (Auto) 3.8 TH/MM3 Monocytes # (Auto) 0.5 TH/MM3 Eosinophils # (Auto) 0.1 TH/MM3 Basophils # (Auto) 0.0 TH/MM3 CBC Comment DIFF FINAL Differential Comment Prothrombin Time 10.2 SEC Prothromb Time International Ratio 1.0 RATIO Activated Partial Thromboplast Time 26.4 SEC Urine Color DARK-RED Urine Turbidity CLEAR Urine pH 7.5 Urine Specific [place] 1.008 Urine Protein 100 mg/dL Urine Glucose (UA) NEG mg/dL Urine Ketones NEG mg/dL Urine Occult Blood LARGE Urine Nitrite NEG Urine Bilirubin NEG Urine Urobilinogen LESS THAN 2.0 MG/DL Urine Leukocyte Esterase SMALL Urine RBC /hpf Urine WBC 20 /hpf Urine Squamous Epithelial Cells 3 /hpf Urine Bacteria OCC /hpf Urine Mucus FEW /lpf Microscopic Urinalysis Comment CULTURE INDICATED Blood Urea Nitrogen 16 MG/DL Creatinine 1.31 MG/DL Random Glucose 111 MG/DL Total Protein 7.8 GM/DL Albumin 3.8 GM/DL Calcium Level 8.6 MG/DL Alkaline Phosphatase 91 U/L Aspartate Amino Transf (AST/SGOT) 32 U/L Alanine Aminotransferase (ALT/SGPT) 18 U/L Total Bilirubin 0.6 MG/DL Sodium Level 141 MEQ/L Potassium Level 4.2 MEQ/L Chloride Level 108 MEQ/L Carbon Dioxide Level 25.4 MEQ/L Anion Gap 8 MEQ/L Estimat Glomerular Filtration Rate 52 ML/MIN [facility] Medical Decision Making Medical Screen Exam Complete: Yes Emergency Medical Condition: Yes Interpretation(s) Last Impressions Chest X-Ray 11/10/17 1210 Signed Impressions: Service Date/Time: Friday, November 10, 2017 12:24 - CONCLUSION: No acute cardiopulmonary abnormality is identified. Eduin Loo MD [address] scan abdomen and pelvis shows hematoma within the urinary bladder. Bladder wall thickening. Enlarged prostate. Right inguinal hernia. CBC within normal limits. Creatinine 1.31. UA positive for gross blood. WBC and bacteria. Differential Diagnosis Differential diagnosis including hematuria, bleeding from prostatic vein, bladder lesion, nephrolithiasis. Narrative Course 82-year-old male with hematuria, urinary obstruction. History of the same last year. Patient was found to have prostatic hypertrophy and dilated veins in the prostatic urethra. Ma cath inserted. Patient draining bloody urine however clotting up frequently despite multiple attempts of irrigation. Diagnosis Primary Impression: Gross hematuria Additional Impression: Obstructive uropathy Admitting Information Admitting Physician Requests: Admit Rogers Baez MD Nov 10, 2017 12:18
[2017-11-10] MEDS ORDERED: LIDOCAINE 2% JELLY 30 ML TUBE TOPICAL ONE (12:30)
[2017-11-10 12:36] LABS: AUTOMATED NEUTROPHIL # 5.4 TH/MM3 (1.8-7.7); BASOPHIL % 0.4 % (0.0-2.0); EOSINOPHIL # 0.1 TH/MM3 (0-0.4); EOSINOPHIL % 0.8 % (0.0-4.0); HEMATOCRIT 45.8 % (39.0-51.0); HEMOGLOBIN 15.2 GM/DL (13.0-17.0); LYMPH % 38.6 % (9.0-44.0); LYMPHOCYTE # 3.8 TH/MM3 (1.0-4.8); MEAN CELL VOLUME 89.3 FL (80.0-100.0); MEAN CORPUSCULAR HEMOGLOBIN 29.7 PG (27.0-34.0); MEAN CORPUSCULAR HGB CONC 33.3 % (32.0-36.0); MEAN PLATELET VOLUME 9.4 FL (7.0-11.0); MONO % 4.8 % (0.0-8.0); MONOCYTE # 0.5 TH/MM3 (0-0.9); NEUT % 55.4 % (16.0-70.0); PLATELET COUNT 171 TH/MM3 (150-450); RED BLOOD COUNT 5.13 MIL/MM3 (4.50-5.90); WHITE BLOOD COUNT 9.7 TH/MM3 (4.0-11.0)
[2017-11-10 12:53] LABS: ALBUMIN 3.8 GM/DL (3.4-5.0); AST (GOT) 32 U/L (15-37); BICARBONATE 25.4 MEQ/L (21.0-32.0); BLOOD UREA NITROGEN 16 MG/DL (7-18); CALCIUM 8.6 MG/DL (8.5-10.1); CHLORIDE 108 MEQ/L (98-107); CREATININE 1.31 MG/DL (0.60-1.30); GLOMERULAR FILTRATION RATE 52 ML/MIN (>89); GLUCOSE,RANDOM 111 MG/DL (74-106); PROTHROMBIN TIME - PATIENT 10.2 SEC (9.8-11.6); SODIUM (NA) 141 MEQ/L (136-145)
[2017-11-10 12:54] LABS: ALKALINE PHOSPHATASE 91 U/L (45-117); ALT (GPT) 18 U/L (12-78); TOTAL BILIRUBIN ADULT 0.6 MG/DL (0.2-1.0); TOTAL PROTEIN 7.8 GM/DL (6.4-8.2)
[2017-11-10 13:00] LABS: BACTERIA, URINE OCC /hpf; BILIRUBIN, URINE NEG (NEG); BLOOD, URINE LARGE (NEG); GLUCOSE,URINE NEG (NEG); KETONE, URINE NEG (NEG); MUCUS URINE FEW /lpf (OCC); NITRITE,URINE NEG (NEG); PH, URINE 7.5 (5.0-8.5); SQUAMOUS EPITHELIAL CELL URINE 3 /hpf (0-5); URINE COLOR DARK-RED (YELLW/STRAW); URINE LEUKOCYTE ESTERASE SMALL (NEG)
--- NOTE | 2017-11-10 13:13 | RADRPT ---
EXAM DATE/TIME: 11/10/2017 12:47 [facility] COMPARISON: No previous studies available for comparison. INDICATIONS : Hematuria ORAL CONTRAST: No oral contrast ingested. RADIATION DOSE: 6.64 CTDIvol (mGy) MEDICAL HISTORY : Hypertension. SURGICAL HISTORY : Prostatectomy. ENCOUNTER: Initial ACUITY: 1 day PAIN SCALE: 0/10 LOCATION: abdomen TECHNIQUE: Volumetric scanning of the abdomen and pelvis was performed. Using automated exposure control and ad justment of the mA and/or kV according to patient size, radiation dose was kept as low as reasonably achievable to obtain optimal diagnostic quality images. DICOM format image data is available electro nically for review and comparison. FINDINGS: LOWER LUNGS: The visualized lower lungs are clear. LIVER: Homogeneous density without lesion. There is no dilation of the biliary tree. No calcified gallston es. SPLEEN: Normal size without lesion. PANCREAS: Within normal limits. KIDNEYS: Normal in size and shape. There is no mass, stone, or hydronephrosis. Right renal density likely cys t on the upper pole. ADRENAL GLANDS: Within normal limits. VASCULAR: There is no aortic aneurysm. BOWEL/MESENTERY: Diverticulosis the colon without diverticulitis. Small hiatal hernia. There is no free intraperitone al air or fluid. ABDOMINAL WALL: Within normal limits. RETROPERITONEUM: There is no lymphadenopathy. BLADDER: Radiopaque density layering within the bladder likely hematoma. Enlarged prostate protrudes into the urinary bladder. There is some mild wall thickening of the urinary bladder. REPRODUCTIVE: Enlarged prostate gland INGUINAL: Right inguinal hernia containing small bowel loops. No signs of obstruction. There is no lymphadenopa thy or hernia of the left. MUSCULOSKELETAL: Within normal limits for patient age. CONCLUSION: 1. Radiopaque material within the urinary bladder likely hematoma. Underlying mass cannot be excluded . 2. Mild wall thickening of the urinary bladder. 3. Enlarged prostate. 4. Right inguinal hernia containing small bowel loops without obstruction. 5. Diverticulosis without diverticulitis. 6. Small hiatal hernia. Mark Fitch MD on November 10, 2017 at 13:08 Board Certified Radiologist. This report was verified electronically.
--- NOTE | 2017-11-10 13:13 | RADRPT ---
EXAM DATE/TIME: 11/10/2017 12:24 [facility] COMPARISON: No previous studies available for comparison. INDICATIONS : Shortness of breath. MEDICAL HISTORY : Hypertension. SURGICAL HISTORY : Prostatectomy. ENCOUNTER: Initial ACUITY: 3 days PAIN SCORE: 0/10 LOCATION: Bilateral chest FINDINGS: Portable AP view of the chest demonstrates a normal-sized cardiac silhouette. No effusion, consolidat ion, or pneumothorax is visualized. The bones and soft tissues demonstrate no acute abnormality. Ther e are degenerative changes of the thoracic spine. CONCLUSION: No acute cardiopulmonary abnormality is identified. Eduin Loo MD on November 10, 2017 at 13:11 Board Certified Radiologist. This report was verified electronically.
[2017-11-10] MEDS ORDERED: cefTRIAXone INJ 1,000 MG in SODIUM CHLORIDE 0.9% INJ 100 ML IV ONE (13:45)
[2017-11-10] MEDS ORDERED: IOHEXOL 350 MG/ML 100 ML BTL (for Cath Lab) OTHER ONE (14:14)
[2017-11-10] MEDS ORDERED: NALOXONE HCL 0.4 MG/ML AMP IV PUSH PRN (14:15)
[2017-11-10] MEDS ORDERED: SODIUM CHLORIDE 0.9% FLUSH 10 ML FLUSH IV FLUSH PRN (14:15)
[2017-11-10] MEDS ORDERED: hydrALAZINE HCL 20 MG/ML VIAL IV PUSH ONE (15:30)
[2017-11-10] MEDS ORDERED: cloNIDine HCL 0.1 MG TAB PO PRN (18:15)
--- NOTE | 2017-11-10 19:56 | HHI.HP ---
HPI Service [facility] Primary Care Physician Unknown Admission Diagnosis Hematuria. Obstructive uropathy. Diagnoses: Travel History International Travel<30 Days: No Contact w/Intl Traveler <30 Da: No Traveled to Known Affected Are: No History of Present Illness History from patient, and ER physician communication, interview of medical records. Patient reported that he was seen blood in his urine since discharge from hospital about 3 days ago. He's reports of associated burning. No fever. Denies any shortness of breath or dizziness or syncopal episodes. Denies any chest pain. Denies any abdominal pain. Denies diarrhea. Patient reports of some nausea and for some vomiting. He stated he hasn't eaten for past 3 days because of this pain and hematuria. Patient is an elderly lady who states he lives by himself. He has a sister who lives about 40 minutes away. His children are mostly in [place] and he would go there once in a while. Review of Systems Except as stated in HPI: all other systems reviewed are Neg Past Family Social History Past Medical History BPH Past Surgical History cystoscopy prior Allergies: Coded Allergies: No Known Allergies (Verified Allergy, Unknown, 11/10/17) Family History none that he knows of Social History smokes about half a pack a day no etoh abuse no drugs Physical Exam Vital Signs Vital Signs Date Time Temp Pulse Resp B/P (MAP) Pulse Ox O2 Delivery O2 Flow Rate FiO2 11/10/17 17:34 11/10/17 17:29 98.1 70 20 175/76 (109) 99 11/10/17 16:59 64 20 165/60 (95) 100 Room Air 11/10/17 15:10 61 19 206/92 (130) 98 Room Air 11/10/17 12:13 64 19 194/85 (121) 97 Room Air 11/10/17 11:44 81 21 11/10/17 11:44 97.8 68 21 216/92 (133) 98 Room Air 11/10/17 11:38 81 20 216/92 (133) 99 Physical Exam GENERAL: This is a well-nourished, well-developed patient, in no apparent distress. Very pleasant elderly gentleman. Very cheerful although he seems to be in pain from Ma catheter. SKIN: No rashes, ecchymoses or lesions. Cool and dry. HEAD: Atraumatic. Normocephalic. No temporal or scalp tenderness. EYES: No scleral icterus. No injection or drainage. ENT: Nose without bleeding, purulent drainage or septal hematoma. Airway patent. NECK: Trachea midline. No JVD. Supple, nontender, no meningeal signs. CARDIOVASCULAR: Regular rate and rhythm without murmurs, gallops, or rubs. RESPIRATORY: Clear to auscultation. Breath sounds equal bilaterally. No wheezes , rales, or rhonchi. GASTROINTESTINAL: Abdomen soft, non-tender, nondistended. No guarding. MUSCULOSKELETAL: Extremities without clubbing, cyanosis, or edema. No calf tenderness. : No suprapubic tenderness. Ma catheter in place. Gross hematuria in the bag. NEUROLOGICAL: Awake and alert. Motor and sensory grossly within normal limits Normal speech. Laboratory Laboratory Tests Test 11/10/17 12:20 White Blood Count 9.7 Red Blood Count 5.13 Hemoglobin 15.2 Hematocrit 45.8 Mean Corpuscular Volume 89.3 Mean Corpuscular Hemoglobin 29.7 Mean Corpuscular Hemoglobin Concent 33.3 Red Cell Distribution Width 18.0 Platelet Count 171 Mean Platelet Volume 9.4 Neutrophils (%) (Auto) 55.4 Lymphocytes (%) (Auto) 38.6 Monocytes (%) (Auto) 4.8 Eosinophils (%) (Auto) 0.8 Basophils (%) (Auto) 0.4 Neutrophils # (Auto) 5.4 Lymphocytes # (Auto) 3.8 Monocytes # (Auto) 0.5 Eosinophils # (Auto) 0.1 Basophils # (Auto) 0.0 CBC Comment DIFF FINAL Differential Comment Prothrombin Time 10.2 Prothromb Time International Ratio 1.0 Activated Partial Thromboplast Time 26.4 Urine Color DARK-RED Urine Turbidity CLEAR Urine pH 7.5 Urine Specific [place] 1.008 Urine Protein 100 Urine Glucose (UA) NEG Urine Ketones NEG Urine Occult Blood LARGE Urine Nitrite NEG Urine Bilirubin NEG Urine Urobilinogen LESS THAN 2.0 Urine Leukocyte Esterase SMALL Urine RBC Urine WBC 20 Urine Squamous Epithelial Cells 3 Urine Bacteria OCC Urine Mucus FEW Microscopic Urinalysis Comment CULTURE INDICATED Blood Urea Nitrogen 16 Creatinine 1.31 Random Glucose 111 Total Protein 7.8 Albumin 3.8 Calcium Level 8.6 Alkaline Phosphatase 91 Aspartate Amino Transf (AST/SGOT) 32 Alanine Aminotransferase (ALT/SGPT) 18 Total Bilirubin 0.6 Sodium Level 141 Potassium Level 4.2 Chloride Level 108 Carbon Dioxide Level 25.4 Anion Gap 8 Estimat Glomerular Filtration Rate 52 Date/Time Source Procedure Growth Status 11/10/17 12:20 Urine Clean Catch Urine Culture Pending Received Result Diagram: 11/10/17 1220 11/10/17 1220 Caprini VTE Risk Assessment Caprini VTE Risk Assessment: Mod/High Risk (score >= 2) Caprini Risk Assessment Model Point Value = 1 Point Value = 2 Point Value = 3 Point Value = 5 Age 41-60 Minor surgery BMI > 25 kg/m2 Swollen legs Varicose veins or History of unexplained or recurrent spontaneous Oral contraceptives or hormone replacement Sepsis (< 1 month) Serious lung disease, including pneumonia (< 1 month) Abnormal pulmonary function Acute myocardial infarction Congestive heart failure (< 1 month) History of inflammatory bowel disease Medical patient at bed rest Age 61-74 Arthroscopic surgery Major open surgery (> 45 min) Laparoscopic surgery (> 45 min) Malignancy Confined to bed (> 72 hours) Immobilizing plaster cast Central venous access Age >= 75 History of VTE Family history of VTE Factor V Leiden Prothrombin [id number] Lupus anticoagulant Anticardiolipin antibodies Elevated serum homocysteine Heparin-induced thrombocytopenia Other congenital or acquired thrombophilia Stroke (< 1 month) Elective arthroplasty Hip, pelvis, or leg fracture Acute spinal cord injury (< 1 month) Prophylaxis Regimen Total Risk Factor Score Risk Level Prophylaxis Regimen 0-1 Low Early ambulation 2 Moderate Order ONE of the following: *Sequential Compression Device (SCD) *Heparin 5000 units SQ BID 3-4 Higher Order ONE of the following medications: *Heparin 5000 units SQ TID *Enoxaparin/Lovenox 40 mg SQ daily (WT < 150 kg, CrCl > 30 mL/min) *Enoxaparin/Lovenox 30 mg SQ daily (WT < 150 kg, CrCl > 10-29 mL/min) *Enoxaparin/Lovenox 30 mg SQ BID (WT < 150 kg, CrCl > 30 mL/min) AND/OR *Sequential Compression Device (SCD) 5 or more Highest Order ONE of the following medications: *Heparin 5000 units SQ TID (Preferred with Epidurals) *Enoxaparin/Lovenox 40 mg SQ daily (WT < 150 kg, CrCl > 30 mL/min) *Enoxaparin/Lovenox 30 mg SQ daily (WT < 150 kg, CrCl > 10-29 mL/min) *Enoxaparin/Lovenox 30 mg SQ BID (WT < 150 kg, CrCl > 30 mL/min) AND *Sequential Compression Device (SCD) Assessment and Plan Assessment and Plan Impression: Gross hematuria Recent hospitalization with similar symptoms and hematuria requiring cystoscopy. Discharged 3 days ago. BPH Plan: Continue Ma catheter. Urology was discussed in ER by ER physician at my request. For now, continue flushing Ma catheter every 2 hours for clots. Nursing staff is informed. The patient clots the catheter overnight severely that cannot be managed with him for flushing, will call urologist for cystoscopy. Nothing by mouth past midnight Ciprofloxacin 400 mg IV every 12 hours as patient had recent urological procedure and also would likely undergo another urological procedure. We'll follow urine culture results. Continue home meds for BPH. DVT prophylaxis with SCD. Chemical prophylaxis is contraindicated due to hematuria. Discussed Condition With Patient, ER physician Physician Certification 2 Midnight Certification Type: Admission for Inpatient Services Order for Inpatient Services The services are ordered in accordance with Medicare regulations or non- Medicare payer requirements, as applicable. In the case of services not specified as inpatient-only, they are appropriately provided as inpatient services in accordance with the 2-midnight benchmark. Estimated LOS (days): 2 days is the estimated time the patient will need to remain in the hospital, assuming treatment plan goals are met and no additional complications. Post-Hospital Plan: Home Dayron Kenyon MD Nov 10, 2017 19:56
[2017-11-10] MEDS ORDERED: MORPHINE SULFATE 2 MG/ML INJ IM PRN (20:00)
[2017-11-11] VITALS (9 sets, daily range): BP systolic 160–189; BP diastolic 72–88; PULSE 60–96; RESP 17–18; TEMP 97.2–98.5; O2SAT 67–98
[2017-11-11] MEDS: SODIUM CHLORIDE 0.9% FLUSH 10 ML FLUSH IV FLUSH SCH ×3 (00:17→20:53)
[2017-11-11] MEDS: CIPROFLOXACIN 400 MG PREMIX 200 ML IV SCH ×3 (00:17→20:53)
--- NOTE | 2017-11-11 08:50 | HHI.PR ---
Subjective Patient symptoms today Pt seen and examined. Urine blood tinged. Few clots irrigated at bedside. Objective Vital Signs Vital Signs Date Time Temp Pulse Resp B/P (MAP) Pulse Ox O2 Delivery O2 Flow Rate FiO2 11/11/17 08:15 98.5 66 18 174/81 (112) 96 11/11/17 04:44 97.2 68 17 176/82 (113) 96 11/11/17 00:39 98.3 60 18 162/72 (102) 95 11/10/17 20:31 98.2 64 18 162/69 (100) 95 11/10/17 17:34 11/10/17 17:29 98.1 70 20 175/76 (109) 99 11/10/17 16:59 64 20 165/60 (95) 100 Room Air 11/10/17 15:10 61 19 206/92 (130) 98 Room Air 11/10/17 12:13 64 19 194/85 (121) 97 Room Air 11/10/17 11:44 81 21 11/10/17 11:44 97.8 68 21 216/92 (133) 98 Room Air 11/10/17 11:38 81 20 216/92 (133) 99 Intake & Output 11/11/17 11/11/17 07:00 19:00 Output Total 500 ml Balance -500 ml Output Urine Total 500 ml Result Diagram: 11/10/17 1220 11/10/17 1220 Imaging Last 24 hours Impressions Chest X-Ray 11/10/17 1210 Signed Impressions: Service Date/Time: Friday, November 10, 2017 12:24 - CONCLUSION: No acute cardiopulmonary abnormality is identified. Eduin Loo MD Abdomen/Pelvis CT 11/10/17 1210 Signed Impressions: Service Date/Time: Friday, November 10, 2017 12:47 - CONCLUSION: 1. Radiopaque material within the urinary bladder likely hematoma. Underlying mass cannot be excluded. 2. Mild wall thickening of the urinary bladder. 3. Enlarged prostate. 4. Right inguinal hernia containing small bowel loops without obstruction. 5. Diverticulosis without diverticulitis. 6. Small hiatal hernia. Mark Fitch MD Objective Remarks Abd:soft,nt,nd Hernández: few clots irrigated; now clear Medications and IVs Current Medications Medications (Trade) Dose Ordered Sig/Micheal Route Start Time Stop Time Status Last Admin (NS Flush) 2 ml UNSCH PRN IV FLUSH 11/10/17 14:15 (NS Flush) 2 ml BID IV FLUSH 11/10/17 21:00 11/11/17 00:17 (Narcan Inj) 0.4 mg UNSCH PRN IV PUSH 11/10/17 14:15 (Flomax) 0.4 mg DAILY PO 11/11/17 09:00 (Catapres) 0.1 mg Q6H PRN PO 11/10/17 18:15 Ciprofloxacin/ Dextrose 200 ml @ 200 mls/hr Q12H IV 11/10/17 21:00 11/11/17 00:17 (Morphine Inj) 1 mg Q4H PRN IM 11/10/17 20:00 Assessment and Plan Assessment and Plan 82 y.o male with gross hematuria Hematuria clears with manual irrigation Irrigate hernández Q 2 hours If persists, will need cysto. If clears can be discharged with hernández in place and perform void trial next week. Rafita Lee DO Nov 11, 2017 08:50
[2017-11-11] MEDS: TAMSULOSIN HCL 0.4 MG CAP PO SCH (09:23)
[2017-11-11 09:25] LABS: AUTOMATED NEUTROPHIL # 9.4 TH/MM3 (1.8-7.7); BASOPHIL % 0.2 % (0.0-2.0); EOSINOPHIL % 0.3 % (0.0-4.0); HEMATOCRIT 44.8 % (39.0-51.0); LYMPH % 20.5 % (9.0-44.0); LYMPHOCYTE # 2.6 TH/MM3 (1.0-4.8); MEAN CORPUSCULAR HEMOGLOBIN 29.8 PG (27.0-34.0); MEAN CORPUSCULAR HGB CONC 33.5 % (32.0-36.0); MEAN PLATELET VOLUME 9.4 FL (7.0-11.0); MONO % 5.3 % (0.0-8.0); MONOCYTE # 0.7 TH/MM3 (0-0.9); NEUT % 73.7 % (16.0-70.0); PLATELET COUNT 207 TH/MM3 (150-450); RED BLOOD COUNT 5.03 MIL/MM3 (4.50-5.90); RED CELL DISTRIBUTION WIDTH 18.4 % (11.6-17.2); WHITE BLOOD COUNT 12.7 TH/MM3 (4.0-11.0)
--- NOTE | 2017-11-11 09:36 | MB ---
cc: Rafita Lee DO DATE OF CONSULT: 11/10/2017 HISTORY OF PRESENT ILLNESS: Mr. Rodriguez is an 82-year-old male who is followed by Dr. Albright, with a history of BPH with obstruction and gross hematuria. Approximately 1 year ago, the patient was admitted with gross hematuria and underwent cystoscopy with fulguration of an area of the prostate that was bleeding by Dr. Reddy. Since then, he denies any recent hematuria, other than this initial presentation which began yesterday. He does take 2 Flomax at night to help with urination and gets up approximately 2-3 times. He is on a daily aspirin. PAST MEDICAL HISTORY: Noted for BPH and hypertension. PAST SURGICAL HISTORY: A prior TURP in 2006. ALLERGIES: NO KNOWN DRUG ALLERGIES. FAMILY HISTORY: FAMILY HISTORY: Reviewed and noncontributory. SOCIAL HISTORY: He denies alcohol, smoking or using drugs. REVIEW OF SYSTEMS: Denies fevers or chills. Denies chest pain. Denies abdominal pain. Complains of hematuria, some dysuria. Denies back pain. All other systems were reviewed and are negative. PHYSICAL EXAMINATION: VITAL SIGNS: Temperature 97.8, heart rate 65, respiratory rate 20, blood pressure 165/60, 100% on room air. GENERAL: He is a well developed, well nourished 82-year-old male, in no acute distress. HEENT: Normocephalic, atraumatic. Pupils equal, round, regular, reactive to light. Extraocular movements intact. NECK: Supple. Trachea is midline. CARDIOVASCULAR: Heart rate, regular rate and rhythm. PULMONARY: Lungs are clear bilaterally. ABDOMEN: Soft, nontender, nondistended. GENITOURINARY: He has got a 24 two-way Ma catheter draining gross blood. This was irrigated vigorously at the bedside for approximately 30 minutes and was then clear. EXTREMITIES: Show no signs of clubbing or edema. NEUROLOGIC: He is awake and alert. Cranial nerves 2-12 are intact. Motor and sensory are grossly within normal limits. 5/5 muscle strength for all muscle groups. Normal speech is noted. LABORATORY DATA: White count 9.7, hemoglobin 15.2, hematocrit 45.8, platelet count of 171. Sodium 141, potassium 4.2, chloride 108, CO2 25.4, BUN S 16, creatinine 1.3, glucose 111. PT is 10.2, INR is 1.0, PTT is 26.4. IMAGING: CT scan of the abdomen showed radiopaque material within the urinary bladder, which is likely hematoma. Underlying mass cannot be excluded. He has mild walk thickening of urinary bladder and an enlarged prostate. Right inguinal hernia is present, containing small loops without obstruction. Diverticulosis without diverticulitis is noted. Small hiatal hernia. ASSESSMENT AND PLAN?: This is an 82-year-old male with history of benign prostatic hyperplasia with obstruction and gross hematuria. Hematuria is likely secondary to prostatic bleeding. We will continue Ma catheter drainage, irrigate as needed at the beside. We will observe. Maintain Ma catheter. Continue Flomax 2 tablets by mouth at bedtime. Will follow with you. If urine remains clear, can be discharged in the a.m. and followup in the office in a week. Recommend holding his aspirin at home. Thank you for the consultation and allowing me to participate in the care of this patient. DO ELOISA Gama , 05:21 PM , 05:55 PM
[2017-11-11 09:52] LABS: BICARBONATE 23.9 MEQ/L (21.0-32.0); CALCIUM 8.8 MG/DL (8.5-10.1); CREATININE 1.15 MG/DL (0.60-1.30)
--- NOTE | 2017-11-11 15:39 | HHI.PR ---
Subjective Remarks Follow-up for hematuria and abdominal pain Patient's nurse at the bedside during the interview. [employer] video translation use since patient is Mongolian-speaking only. Yared Sibley174 was a employment consultant. Patient denies any abdominal pain. He stated that he is doing well. He is asking when he can go home. He had no complaints. He asked me to speak to his niece Radha. Objective Vitals Vital Signs Date Time Temp Pulse Resp B/P (MAP) Pulse Ox O2 Delivery O2 Flow Rate FiO2 11/11/17 11:57 97.9 69 18 182/81 (114) 96 11/11/17 08:15 98.5 66 18 174/81 (112) 96 11/11/17 04:44 97.2 68 17 176/82 (113) 96 11/11/17 00:39 98.3 60 18 162/72 (102) 95 11/10/17 20:31 98.2 64 18 162/69 (100) 95 11/10/17 17:34 11/10/17 17:29 98.1 70 20 175/76 (109) 99 11/10/17 16:59 64 20 165/60 (95) 100 Room Air I/O 11/10/17 11/10/17 11/10/17 11/11/17 11/11/17 11/11/17 07:00 15:00 23:00 07:00 15:00 23:00 Output Total 500 ml 500 ml Balance -500 ml -500 ml Output Urine Total 500 ml 500 ml Result Diagram: 11/11/17 0850 11/11/17 0850 Objective Remarks GENERAL: in NAD CARDIOVASCULAR: Regular rate and rhythm without murmurs, gallops, or rubs. RESPIRATORY: Breath sounds equal bilaterally. No accessory muscle use. GASTROINTESTINAL: Abdomen soft, non-tender, nondistended. Ma in place continues to have hematuria but no blood clots noted. MUSCULOSKELETAL: No cyanosis, or edema. BACK: Nontender without obvious deformity. No CVA tenderness. Medications and IVs Current Medications Lidocaine HCl (Xylocaine 2% Jelly) 1 applic ONCE ONCE TOPICAL Last administered on 11/10/17at 13:39; Start 11/10/17 at 12:30; Stop 11/10/17 at 12:31 ; Status DC Ceftriaxone Sodium 1000 mg/ Sodium Chloride 100 ml @ 200 mls/hr ONCE ONCE IV Last administered on 11/10/17at 14:08; Start 11/10/17 at 13:45; Stop 11/10/17 at 14:14; Status DC Sodium Chloride (NS Flush) 2 ml UNSCH PRN IV FLUSH FLUSH AFTER USING IV ACCESS ; Start 11/10/17 at 14:15 Sodium Chloride (NS Flush) 2 ml BID IV FLUSH Last administered on 11/11/17at 09: 23; Start 11/10/17 at 21:00 Naloxone HCl (Narcan Inj) 0.4 mg UNSCH PRN IV PUSH SEE LABEL COMMENTS; Start at 14:15 Hydralazine HCl (Apresoline Inj) 10 mg ONCE ONCE IV PUSH Last administered on 11/10/17at 15:26; Start 11/10/17 at 15:30; Stop 11/10/17 at 15:31; Status DC Tamsulosin HCl (Flomax) 0.4 mg DAILY PO Last administered on 11/11/17at 09:23; Start 11/11/17 at 09:00 Clonidine (Catapres) 0.1 mg Q6H PRN PO bp>170/80 if no pain; Start 11/10/17 at 18:15 Ciprofloxacin/ Dextrose 200 ml @ 200 mls/hr Q12H IV Last administered on at 09:23; Start 11/10/17 at 21:00 Morphine Sulfate (Morphine Inj) 1 mg Q4H PRN IM pain >5; Start 11/10/17 at 20: 00 A/P Assessment and Plan This is a 82-year-old male history of obstructive uropathy presented with hematuria Gross Hematuria -Secondary to obstructive uropathy. Patient had similar scenario happened a year ago where he had cauterization done. -Urologist consulted recommend manual irrigation of the Ma every 2 hours. If the hematuria clears he can be discharged with a Ma in place and perform voiding trial next week. If hematuria persists he will need a cystoscopy. Mild renal sufficiency -Most likely secondary to dehydration. Resolved. DVT prophylaxis -SCDs. Encourage ambulation. Avoid NIRAV prophylaxis secondary to gross hematuria. Radha Jean MD Nov 11, 2017 15:39
[2017-11-12] VITALS (8 sets, daily range): BP systolic 137–177; BP diastolic 64–85; PULSE 63–84; RESP 16–19; TEMP 97.7–98.5; O2SAT 94–99
[2017-11-12] MEDS: CIPROFLOXACIN 400 MG PREMIX 200 ML IV SCH ×3 (08:19→20:39)
[2017-11-12] MEDS: TAMSULOSIN HCL 0.4 MG CAP PO SCH ×2 (08:20→09:00)
[2017-11-12] MEDS: SODIUM CHLORIDE 0.9% FLUSH 10 ML FLUSH IV FLUSH SCH ×2 (08:20→20:45)
[2017-11-12 08:22] LABS: HEMATOCRIT 44.7 % (39.0-51.0); HEMOGLOBIN 15.3 GM/DL (13.0-17.0); MEAN CELL VOLUME 87.9 FL (80.0-100.0); MEAN CORPUSCULAR HGB CONC 34.1 % (32.0-36.0); MEAN PLATELET VOLUME 9.2 FL (7.0-11.0); PLATELET COUNT 177 TH/MM3 (150-450); RED BLOOD COUNT 5.09 MIL/MM3 (4.50-5.90); RED CELL DISTRIBUTION WIDTH 18.1 % (11.6-17.2); WHITE BLOOD COUNT 10.3 TH/MM3 (4.0-11.0)
[2017-11-12] MEDS ORDERED: LIDOCAINE HCL 2% JELLY 5 ML SYRINGE ONE (08:23)
[2017-11-12 08:35] LABS: BICARBONATE 22.3 MEQ/L (21.0-32.0); CALCIUM 8.7 MG/DL (8.5-10.1); CREATININE 1.1 MG/DL (0.60-1.30)
[2017-11-12] MEDS ORDERED: ACETAMINOPHEN 1000 MG/100 ML 100 ML IV ONE (09:02)
[2017-11-12] MEDS ORDERED: FAMOTIDINE 20 MG/2 ML VIAL ONE (09:02)
[2017-11-12] MEDS ORDERED: MIDAZOLAM HCL 2 MG/2 ML VIAL ONE (09:02)
--- NOTE | 2017-11-12 10:22 | PD.OP ---
Operative Report Date of Surgery: Nov 12, 2017 Preoperative Diagnosis: Gross hematuria Postoperative Diagnosis: Same Procedure: Cystoscopy, fulguration of prostatic bleeding Anesthesia: GERALD Surgeon: Raftia Lee Automatic Winder Operator(s): None Resident Surgeon: None Operation and Findings: 7-year-old male who presented to the emergency room 2 days ago with gross hematuria. Gross hematuria has been persistent and decision was made to take the patient to the operating room to undergo cystoscopy, evaluation of bleeding. Risk and benefits were discussed and he was willing to proceed. The patient was brought to the operating room and placed in dorsal lithotomy position. He was prepped and draped in usual sterile fashion and preprocedure antibiotics were given. General endotracheal tube anesthesia was administered. 22 Khmer cystoscope was inserted into the bladder and large coapting friable lobes the prostate were identified. Areas of bleeding were noted throughout the prostatic urethra in the 3:00, 6:00 9:00 and 12:00 positions. Vincent cystoscopy showed trabeculated bladder. No bladder tumors were identified. Using the rollerball, the prostatic fossa was fulgurated. The prostate seemed to be very friable. Once hemostasis was obtained, a 22 Khmer Ma catheter was inserted. The Ma was irrigated to clear. 20 cc were placed in the Ma balloon. He tolerated the procedure well and was awoken and extubated and transferred to remove in stable condition. He'll follow-up in the office in one week to undergo void trial. Rafita Lee DO Nov 12, 2017 10:22
[2017-11-12] MEDS ORDERED: DO NOT ADM ANY ANTICOAGULANT DRUGS PRN (11:00)
--- NOTE | 2017-11-12 11:33 | EKG ---
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
--- NOTE | 2017-11-12 11:36 | HHI.PR ---
Subjective Remarks in no acute distress. denies pain. hernández in place with some hematuria. Objective Vitals Vital Signs Date Time Temp Pulse Resp B/P (MAP) Pulse Ox O2 Delivery O2 Flow Rate FiO2 11/12/17 11:00 97.7 82 16 150/71 (97) 95 Nasal Cannula 2 11/12/17 10:45 89 15 144/75 (98) 94 Nasal Cannula 2 11/12/17 10:30 92 15 133/70 (91) 94 Nasal Cannula 2 11/12/17 10:20 97.0 100 12 134/70 (91) 98 Simple Mask 7 11/12/17 10:17 77 11/12/17 08:00 97.8 75 18 174/82 (112) 97 11/12/17 04:00 98.5 63 19 177/79 (111) 94 11/12/17 00:00 98.1 63 17 143/71 (95) 97 11/11/17 20:00 98.4 96 18 189/88 (121) 67 186/86 (119) 11/11/17 18:00 67 11/11/17 16:36 97.9 67 18 160/79 (106) 98 11/11/17 12:37 73 11/11/17 11:57 97.9 69 18 182/81 (114) 96 I/O 11/11/17 11/11/17 11/11/17 11/12/17 11/12/17 11/12/17 07:00 15:00 23:00 07:00 15:00 23:00 Intake Total 240 ml 800 ml Output Total 500 ml 500 ml 250 ml 125 ml Balance -500 ml -260 ml -250 ml 675 ml Intake Oral 240 ml IV Total 800 ml Output Urine Total 500 ml 500 ml 250 ml 100 ml Estimated Blood Loss 25 ml # Bowel Movements 0 Result Diagram: 11/12/1770411/12/17704 Objective Remarks GENERAL: This is a well-nourished, well-developed patient, in no apparent distress. CARDIOVASCULAR: Regular rate and regular rhythm without murmurs, gallops, or rubs. RESPIRATORY: Clear to auscultation. Breath sounds equal bilaterally. No wheezes , rales, or rhonchi. GASTROINTESTINAL: Abdomen soft, non-tender, nondistended. Normal, active bowel sounds MUSCULOSKELETAL: Extremities without clubbing, cyanosis, or edema. NEURO: Alert & Oriented x4 to person, place, time, situation. Moves all ext x4 Medications and IVs Inpatient Medications Ceftriaxone Sodium 1000 mg/ Sodium Chloride 100 ml @ 200 mls/hr ONCE ONCE IV Last administered on 11/10/17at 14:08; Start 11/10/17 at 13:45; Stop 11/10/17 at 14:14; Status DC Ciprofloxacin/ Dextrose 200 ml @ 200 mls/hr Q12H IV Last administered on at 20:53; Start 11/10/17 at 21:00 Clonidine (Catapres) 0.1 mg Q6H PRN PO bp>170/80 if no pain Last administered on 11/11/17at 20:52; Start 11/10/17 at 18:15 Hydralazine HCl (Apresoline Inj) 10 mg ONCE ONCE IV PUSH Last administered on 11/10/17at 15:26; Start 11/10/17 at 15:30; Stop 11/10/17 at 15:31; Status DC Lidocaine HCl (Xylocaine 2% Jelly) 1 applic ONCE ONCE TOPICAL Last administered on 11/10/17at 13:39; Start 11/10/17 at 12:30; Stop 11/10/17 at 12:31 ; Status DC Miscellaneous Information ALL NURSING DEPARTME... UNSCH PRN .XX SEE LABEL COMMENTS; Start 11/12/17 at 11:00; Stop 11/13/17 at 10:59 Morphine Sulfate (Morphine Inj) 1 mg Q4H PRN IM pain >5; Start 11/10/17 at 20: 00 Naloxone HCl (Narcan Inj) 0.4 mg UNSCH PRN IV PUSH SEE LABEL COMMENTS; Start at 14:15 Sodium Chloride (NS Flush) 2 ml BID IV FLUSH Last administered on 11/11/17at 20: 53; Start 11/10/17 at 21:00 Tamsulosin HCl (Flomax) 0.4 mg DAILY PO Last administered on 11/11/17at 09:23; Start 11/11/17 at 09:00 A/P Assessment and Plan Gross Hematuria -Secondary to obstructive uropathy. Patient had similar scenario happened a year ago where he had cauterization done. -s/p cystoscopy. -awaiting Urology follow-up and recommendations. Mild renal sufficiency -Most likely secondary to dehydration. Resolved. DVT prophylaxis -SCDs. Encourage ambulation. Avoid NIRAV prophylaxis secondary to gross hematuria. Milagro Barraza MD Nov 12, 2017 11:36
[2017-11-12] MEDS ORDERED: NEOSTIGMINE 5 MG/5 ML SYRINGE IV PUSH ONE (12:00)
[2017-11-12] MEDS ORDERED: LIDOCAINE HCL 1% PF 5 ML SYRINGE OTHER ONE (12:00)
[2017-11-12] MEDS ORDERED: ePHEDrine/NS 25 MG/5 ML SYRINGE IV ONE (12:00)
[2017-11-12] MEDS ORDERED: PHENYLEPH/NS 1000 MCG/10 ML SYR IV ONE (12:00)
[2017-11-12] MEDS ORDERED: GLYCOPYRROLATE 1 MG/5 ML SYRINGE IV PUSH ONE (12:00)
[2017-11-12] MEDS ORDERED: PROPOFOL 200 MG/20 ML AMP IV ONE (12:00)
[2017-11-12] MEDS ORDERED: ONDANSETRON HCL 4 MG/2 ML VIAL IV PUSH ONE (12:00)
[2017-11-12] MEDS ORDERED: ROCURONIUM INJ 50 MG/5 ML SYRINGE IV PUSH ONE (12:00)
[2017-11-12] MEDS ORDERED: DEXAMETHASONE SOD PHOS 4 MG/ML VIAL IV ONE (12:00)
[2017-11-13] VITALS (20 sets, daily range): BP systolic 70–174; BP diastolic 43–98; PULSE 53–101; RESP 16–20; TEMP 95–98.4; O2SAT 93–100
[2017-11-13] MEDS: TAMSULOSIN HCL 0.4 MG CAP PO SCH (08:12)
[2017-11-13] MEDS: CIPROFLOXACIN 400 MG PREMIX 200 ML IV SCH ×2 (08:12→22:36)
[2017-11-13] MEDS: SODIUM CHLORIDE 0.9% FLUSH 10 ML FLUSH IV FLUSH SCH ×3 (08:13→21:00)
--- NOTE | 2017-11-13 09:13 | HHI.PR ---
Subjective Patient symptoms today Pt seen and examined. No complaints. Feels well. Objective Vital Signs Vital Signs Date Time Temp Pulse Resp B/P (MAP) Pulse Ox O2 Delivery O2 Flow Rate FiO2 11/13/17 08:00 98.1 53 16 158/75 (102) 96 11/13/17 04:00 66 11/13/17 04:00 97.5 83 18 149/90 (109) 97 11/13/17 00:00 70 11/13/17 00:00 98.4 78 18 140/65 (90) 95 11/12/17 20:00 83 11/12/17 19:42 98.2 83 16 142/69 (93) 95 11/12/17 16:00 97.7 84 18 160/85 (110) 98 11/12/17 12:00 97.7 74 18 137/64 (88) 99 11/12/17 11:00 97.7 82 16 150/71 (97) 95 Nasal Cannula 2 11/12/17 10:45 89 15 144/75 (98) 94 Nasal Cannula 2 11/12/17 10:30 92 15 133/70 (91) 94 Nasal Cannula 2 11/12/17 10:20 97.0 100 12 134/70 (91) 98 Simple Mask 7 11/12/17 10:17 77 Intake & Output 11/13/17 11/13/17 07:00 19:00 Intake Total 200 ml Output Total 800 ml Balance -600 ml IV Total 200 ml Output Urine Total 800 ml Result Diagram: 11/12/17 0711/12/17 07 Objective Remarks Abd:soft,nt,nd Hernández: few clots irrigated; now clear 11/13/17 Abd:soft,nt,nd Hernández: irrigated to clear at bedside. Medications and IVs Current Medications Medications (Trade) Dose Ordered Sig/Micheal Route Start Time Stop Time Status Last Admin (NS Flush) 2 ml UNSCH PRN IV FLUSH 11/10/17 14:15 (NS Flush) 2 ml BID IV FLUSH 11/10/17 21:00 11/13/17 08:13 (Narcan Inj) 0.4 mg UNSCH PRN IV PUSH 11/10/17 14:15 (Flomax) 0.4 mg DAILY PO 11/11/17 09:00 11/13/17 08:12 (Catapres) 0.1 mg Q6H PRN PO 11/10/17 18:15 11/11/17 20:52 Ciprofloxacin/ Dextrose 200 ml @ 200 mls/hr Q12H IV 11/10/17 21:00 11/13/17 08:12 (Morphine Inj) 1 mg Q4H PRN IM 11/10/17 20:00 Miscellaneous Information ALL NURSING DEPARTME... UNSCH PRN .XX 11/12/17 11:00 11/13/17 10:59 Assessment and Plan Assessment and Plan 82 y.o male with gross hematuria Hematuria clears with manual irrigation Irrigate hernández Q 2 hours If persists, will need cysto. If clears can be discharged with hernández in place and perform void trial next week. 11/13/17 82 y.o male with gross hematuria s/p cysto with fulguration Hernández irrigated to clear this AM If urine remains clear can d/c home with hernández this afternoon and f/u next Wed. AM for void trial in office. Rafita Lee DO Nov 13, 2017 09:13
--- NOTE | 2017-11-13 09:23 | HHI.PR ---
Subjective Remarks in no acute distress. denies pain. hernández in place with hematuria. Objective Vitals Vital Signs Date Time Temp Pulse Resp B/P (MAP) Pulse Ox O2 Delivery O2 Flow Rate FiO2 11/13/17 08:00 98.1 53 16 158/75 (102) 96 11/13/17 04:00 66 11/13/17 04:00 97.5 83 18 149/90 (109) 97 11/13/17 00:00 70 11/13/17 00:00 98.4 78 18 140/65 (90) 95 11/12/17 20:00 83 11/12/17 19:42 98.2 83 16 142/69 (93) 95 11/12/17 16:00 97.7 84 18 160/85 (110) 98 11/12/17 12:00 97.7 74 18 137/64 (88) 99 11/12/17 11:00 97.7 82 16 150/71 (97) 95 Nasal Cannula 2 11/12/17 10:45 89 15 144/75 (98) 94 Nasal Cannula 2 11/12/17 10:30 92 15 133/70 (91) 94 Nasal Cannula 2 11/12/17 10:20 97.0 100 12 134/70 (91) 98 Simple Mask 7 11/12/17 10:17 77 I/O 11/12/17 11/12/17 11/12/17 11/13/17 11/13/17 11/13/17 07:00 15:00 23:00 07:00 15:00 23:00 Intake Total 800 ml 200 ml Output Total 250 ml 125 ml 800 ml Balance -250 ml 675 ml 200 ml -800 ml IV Total 800 ml 200 ml Output Urine Total 250 ml 100 ml 800 ml Estimated Blood Loss 25 ml # Bowel Movements 0 Result Diagram: 11/12/17 0705 11/12/17 0705 Imaging Last Impressions Chest X-Ray 11/10/17 1210 Signed Impressions: Service Date/Time: Friday, November 10, 2017 12:24 - CONCLUSION: No acute cardiopulmonary abnormality is identified. Eduin Loo MD Abdomen/Pelvis CT 11/10/17 1210 Signed Impressions: Service Date/Time: Friday, November 10, 2017 12:47 - CONCLUSION: 1. Radiopaque material within the urinary bladder likely hematoma. Underlying mass cannot be excluded. 2. Mild wall thickening of the urinary bladder. 3. Enlarged prostate. 4. Right inguinal hernia containing small bowel loops without obstruction. 5. Diverticulosis without diverticulitis. 6. Small hiatal hernia. Mark Fitch MD Objective Remarks GENERAL: This is a well-nourished, well-developed patient, in no apparent distress. CARDIOVASCULAR: Regular rate and regular rhythm without murmurs, gallops, or rubs. RESPIRATORY: Clear to auscultation. Breath sounds equal bilaterally. No wheezes , rales, or rhonchi. GASTROINTESTINAL: Abdomen soft, non-tender, nondistended. Normal, active bowel sounds MUSCULOSKELETAL: Extremities without clubbing, cyanosis, or edema. NEURO: Alert & Oriented x4 to person, place, time, situation. Moves all ext x4 Medications and IVs Inpatient Medications Ceftriaxone Sodium 1000 mg/ Sodium Chloride 100 ml @ 200 mls/hr ONCE ONCE IV Last administered on 11/10/17at 14:08; Start 11/10/17 at 13:45; Stop 11/10/17 at 14:14; Status DC Ciprofloxacin/ Dextrose 200 ml @ 200 mls/hr Q12H IV Last administered on at 08:12; Start 11/10/17 at 21:00 Clonidine (Catapres) 0.1 mg Q6H PRN PO bp>170/80 if no pain Last administered on 11/11/17at 20:52; Start 11/10/17 at 18:15 Hydralazine HCl (Apresoline Inj) 10 mg ONCE ONCE IV PUSH Last administered on 11/10/17at 15:26; Start 11/10/17 at 15:30; Stop 11/10/17 at 15:31; Status DC Lidocaine HCl (Xylocaine 2% Jelly) 1 applic ONCE ONCE TOPICAL Last administered on 11/10/17at 13:39; Start 11/10/17 at 12:30; Stop 11/10/17 at 12:31 ; Status DC Miscellaneous Information ALL NURSING DEPARTME... UNSCH PRN .XX SEE LABEL COMMENTS; Start 11/12/17 at 11:00; Stop 11/13/17 at 10:59 Morphine Sulfate (Morphine Inj) 1 mg Q4H PRN IM pain >5; Start 11/10/17 at 20: 00 Naloxone HCl (Narcan Inj) 0.4 mg UNSCH PRN IV PUSH SEE LABEL COMMENTS; Start at 14:15 Sodium Chloride (NS Flush) 2 ml BID IV FLUSH Last administered on 11/13/17at 08: 13; Start 11/10/17 at 21:00 Tamsulosin HCl (Flomax) 0.4 mg DAILY PO Last administered on 11/13/17at 08:12; Start 11/11/17 at 09:00 A/P Assessment and Plan Gross Hematuria -Secondary to obstructive uropathy. Patient had similar scenario happened a year ago where he had cauterization done. -s/p cystoscopy. -urology following. Mild renal sufficiency -Most likely secondary to dehydration. Resolved. DVT prophylaxis -SCDs. Encourage ambulation. Avoid NIRAV prophylaxis secondary to gross hematuria. Discharge Planning dc home - when hematuria resolves. voiding trial-as outpatient - per Urology. Milagro Barraza MD Nov 13, 2017 09:23
[2017-11-13] MEDS ORDERED: NITROGLYCERIN 2.5 MG CAP PO ONE (13:45)
[2017-11-13] MEDS ORDERED: ONDANSETRON HCL 4 MG/2 ML VIAL IV PUSH PRN (13:45)
[2017-11-13] MEDS: MORPHINE SULFATE 2 MG/ML INJ IV PUSH PRN ×3 (14:07→18:55)
[2017-11-13] MEDS ORDERED: HEPARIN-NS/PF FLUSH BAG 1,000 ML IV FLUSH ONE ×2 (14:15→14:25)
[2017-11-13] MEDS ORDERED: NITROGLYCERIN 0.4 MG SL 25 TABS/BTL SL ONE (14:15)
[2017-11-13] MEDS ORDERED: HEPARIN SODIUM - IV 10,000 UNITS/10 ML VIAL ONE (14:16)
--- NOTE | 2017-11-13 14:19 | HHI.PR ---
Addendum To [facility] Progress Not Reason for addendum: Additonal documentation (patient complaining of chest pain - started him on oxygen and IV morphine- EKG was obtained with ST elevation in anterior leads- troponin pending-STEMI alert was called- d/w and patient will be going to cleaner laboratory equipment . this was d/w as well.) Milagro Barraza MD Nov 13, 2017 14:19
[2017-11-13 14:25] LABS: BICARBONATE 20.9 MEQ/L (21.0-32.0); CALCIUM 8.9 MG/DL (8.5-10.1); CREATININE 1.49 MG/DL (0.60-1.30)
[2017-11-13] MEDS ORDERED: ASPIRIN 81 MG CHEW TAB ONE (14:52)
[2017-11-13] MEDS ORDERED: TIROFIBAN BOLUS INJ 100 ML IV ONE (15:04)
[2017-11-13 15:12] LABS: AUTOMATED NEUTROPHIL # 11.5 TH/MM3 (1.8-7.7); BASOPHIL % 0.3 % (0.0-2.0); EOSINOPHIL # 0.1 TH/MM3 (0-0.4); EOSINOPHIL % 0.6 % (0.0-4.0); HEMOGLOBIN 12.8 GM/DL (13.0-17.0); LYMPHOCYTE # 0.9 TH/MM3 (1.0-4.8); MEAN CELL VOLUME 87.9 FL (80.0-100.0); MEAN CORPUSCULAR HEMOGLOBIN 29.5 PG (27.0-34.0); MEAN CORPUSCULAR HGB CONC 33.6 % (32.0-36.0); MEAN PLATELET VOLUME 9.1 FL (7.0-11.0); MONOCYTE # 0.7 TH/MM3 (0-0.9); NEUT % 87.1 % (16.0-70.0); PLATELET COUNT 179 TH/MM3 (150-450); RED BLOOD COUNT 4.32 MIL/MM3 (4.50-5.90); RED CELL DISTRIBUTION WIDTH 17.8 % (11.6-17.2); WHITE BLOOD COUNT 13.2 TH/MM3 (4.0-11.0)
[2017-11-13] MEDS ORDERED: CLOPIDOGREL 300 MG TAB ONE (15:12)
--- NOTE | 2017-11-13 15:39 | CATHPROC ---
[facility] HIS Report Study Information Study Number Admission Scheduled Start Study Start [id number] Nov 10 2017 2:13PM 11/13/2017 Nov 13 2017 2:24PM [facility] Cardiac Catheterization Admit Source Facility Department Emergency department [facility] - [facility] Technician Physician and Clinical Staff Initial Nathanael Villanueva Pipeline Maintenance SupervisorAlycia Brennan,RN Pipeline Maintenance SupervisorDanny Mendoza,RN Recorder Jyoti Dexter,EMERGENCY ROOM PHYSICIAN ASSISTANT TECH2 Scrub Hostтатьяна, Marshall,RT(R) Procedures Performed Procedure Location (Site) Vessel Name Coronary Angiograms LCA Left Coronary Coronary Angiograms RCA Right Coronary LV Gram-hand inj. LV LV Ventricle PTCA LAD Prox Left Coronary Stent LAD Prox Left Coronary Wire insertion Fem Art (right) Femoral Art Equipment Time Dietetics Teacher Description Size Mfg Part Number Used/Scraped [id number] 14:50 MAHAJAN [employer] WIRE, ASAHI PROWATER 180CM 180CM Used *[id number] 15:04 MAHAJAN CRITICAL CARE WIRE, ASAHI PROWATER 180CM 180CM Used *[id number] TRANSDUCER, TRUWAVE [id number] 14:47 MCNAMARA DELGADO * Used W/STOCKCOCK *[id number] *[id number] *[id number] 14:47 MEDLINE INDUSTRIES PACK, CCL CUSTOM * Used *[id number] 14:47 Stackpop PACER PEN, SKIN DUAL W/ RULER * Used *[id number] 14:51 MEDTRONIC BALLOON, 2.5 X 12MM EUPHORA 12MM Used *[id number] 14:57 MEDTRONIC STENT, 3.0 12 INTEGRITY 3.0 12 Used *[id number] 14:55 MEDTRONIC STENT, 3.0 18 INTEGRITY 3.0 18 Used *[id number] 14:55 DwellAware MEDICAL 30 ELVA INDEFLATOR Used *[id number] 14:47 DwellAware MEDICAL SHEATH, FR6.5 PRELUDE 11CM FR 6.5 038ACT Used *[id number] 14:47 DwellAware MEDICAL WIRE, 3MMJ .035 180CM 180CM Used *[id number] 14:47 NAMIC MANIFOLD, 4 PORT * Used *[id number] 14:47 NYCOMED OMNIPAQUE, 350 MG, 150ML 150ML [id number] 14:47 ERAZO MEDICAL BLANKET,WARM AIR CCL * Used *[id number] 14:47 TERUMO MEDICAL SHEATH, FR4 TERUMO (10CM) FR 4 Used *[id number] Equipment Model, Serial, Lot Number and Expiration Data Description Model Number Serial Number Lot Number Expiration Date STENT, 3.0 12 INTEGRITY [id number] 01-22-2019 STENT, 3.0 18 INTEGRITY [id number] 05-21-2019 History: Current Medications Medication Dosage/Unit Route Frequency Last Date/Time Taken FLOMAX HYDRALAZINE History: Allergies Allergy Reaction No Known Allergies History: Risk Factors Family History of Hypertension Dyslipidemia Previous UT Previous Heart Failure Premature CAD Yes No No No No Prior Valve Prior PCI Prior CABG Surgery No No No Cerebrovascular Peripheral Artery Chronic Lung On Dialysis Diabetes Disease Disease Disease No No No No No History: Symptoms/Diagnosis Selection Items Chest pain History: Stress Tests Stress or Imaging Studies Performed No History: Other Disease Selection Items CAD Renal Failure/Insufficiency History: Other Current Smoker Method Packs a Day Years Used Pack Years Yes Cigarettes 1 20 20 Labs Glucose (mg/dl) BUN (mg/dl) Creatinine (mg/dl) BUN:Creatinine (1:x) 74.00-106.00 7.00-18.00 0.50-1.30 10.00-20.00 125 20 1.5 13.3 Na (meq/l) K (meq/l) Cl (meq/l) CO2 (mmol/L) 136.00-145.00 3.50-5.10 98.00-107.00 21.00-32.00 139 3.2 104 20.9 Troponin I (ng/ml) CPK-MB (ng/ML) 0.02-0.05 0.50-3.60 0.02 Not Drawn Medication Medication Total Dose (Bolus/Oral) Medication Total Dosage/Unit 1% XYLOCAINE 20 mL AGGRASTAT BOLUS 33 mL ASPIRIN 162 mg HEPARIN 5000 units PLAVIX 600 mg Medications (Bolus/Oral) Medication Time Given Dosage/Unit Administered By Reason 1% XYLOCAINE 11/13/2017 2:45:04 PM 20 mL Nathanael Kelley 20 mL 1% XYLOCAINE given in lab by Nathanael Kelley in Right Groin via Subcutaneous. HEPARIN 11/13/2017 2:51:10 PM 5000 units Danny Hanna 5000 units HEPARIN given in lab by Danny Hanna RN in Left Wrist via Peripheral IV. Ordered by Nathanael Mcfarlane. ASPIRIN 11/13/2017 2:53:36 PM 162 mg Alycia Sanders 162 mg ASPIRIN given in lab by Alycia Sanders RN via Oral. Ordered by Nathanael Kelley. AGGRASTAT BOLUS 11/13/2017 3:08:55 PM 33 mL Danny Hanna 33 mL AGGRASTAT BOLUS given in lab by Danny Hanna RN in Left Wrist via Peripheral IV. Ordered by Nathanael Thomas. PLAVIX 11/13/2017 3:15:01 PM 600 mg Danny Hanna 600 mg PLAVIX given in lab by Danny Hanna RN via Oral. Ordered by Nathanael Kelley. Medication (Drip) Medication Time Given Dosage/Unit Concentration/Unit Diluent (ml) Solutio n AGGRASTAT DRIP 11/13/2017 3:11:06 PM 0.15 mcg/kg/min 12.5 mg 250 NaCl .9 0.15 mcg/kg/min AGGRASTAT DRIP given in lab by Alycia Sanders RN in Left Wrist via Peripheral IV. P ump/Drip Flow = 12.24 ml/hr using NaCl .9 with a concentration of 12.5 mg in 250 ml. Ordered by Nathanael Kelley. IV Solutions 11/13/2017 2:24:34 PM 0 mL (IV) 1000 NaCl .9 Patient arrived on IV Solutions in Left Wrist via Peripheral IV. Pump/Drip Flow = 20 ml/hr using NaCl .9. NIPRIDE 11/13/2017 3:00:53 PM 100 mcg 100 mcg NIPRIDE given in lab by Nathanael Kelley via Intra-coronary. Ordered by Nathanael Kelley. NIPRIDE 11/13/2017 3:05:31 PM 50 mcg 50 mcg NIPRIDE given in lab by Nathanael Kelley via Intra-coronary. Ordered by Nathanael Kelley. NIPRIDE 11/13/2017 3:06:07 PM 50 mcg 50 mcg NIPRIDE given in lab by Nathanael Kelley via Intra-coronary. Ordered by Nathanael Kelley. Initial Case Assessment Cardiovascular HR Rhythm NIBP Chest Pain 96 sr 134/81 3 Circulatory - Right Pulses Dorsalis Pedis Femoral 2 2 Scale (0,1,2,3,4,d) Circulatory - Left Pulses Dorsalis Pedis Femoral 2 2 Scale (0,1,2,3,4,d) Neurological State Oriented to time-place- Alert Moves all extremities person Respiration - General Respiration Rate SpO2 (%) O2 (lpm) (B/min) 11 100 2 Chronological Log Time Study Chronological Log 14:24:18 Patient arrived via Bed. 14:24:19 Patient Name, D.O.B, / Armband Verified By R.N. 14:24:19 Consent signed by the physician and the patient and verified by the [facility] Techn[facility] staff. 14:24:20 Pre-op and post- op instructions given; patient acknowledges understanding of instructions. Verbal Stimulation=~VERBAL~ Physical Stimulation=~PHYSICAL~ Airway=~AIRWAY~ Respiration=~RESPIR ATION~ 14:24:20 TOTAL=~TOTAL~. (0=absent, 1=limited, 2=present) 14:24: Presedation assessment performed by Solar Lab Technician RN. 14:24:22 Immediate Presedation assesment performed by physician. 14:24:23 Patient has been NPO for More than 6Hrs. 14:24:24 Skin Breakdown-rt inguinal hernia, hematuria noted in hernández. 14:24:26 Patient Warmer Placed on the Table. 14:24:27 Raquel Prominences Protected 14:24:28 A # 20 IV was noted in the Hand (right). Grade = patent 14:24:34 A # 18 IV was noted in the Wrist (left). Grade = patent 14:24:34 Patient arrived on IV Solutions in Left Wrist via Peripheral IV. Pump/Drip Flow = 20 ml/hr using NaCl .9. 14:24:35 History and physical on the chart or being dictated. Vitals capture started with the following parameters, Patient=Adult, Interval=5 min, Initial Pr eiyxha=139 mmHg, 14:29:31 Deflation Rate=5 mmHg, Cuff placed on Left Arm 14:30:13 EAUT=377/87 mmhg, SpO2=98.0 % 14:32:37 Bilateral groins prepped with 2% chlorhexidine, and draped after a 3 minute waiting time. 14:34:29 Reference ECG taken 14:35:10 HR=96 bpm, XGLJ=394/81 mmhg, SpO2=96.0 %, Resp=11 B/min Assessment: Initial Case, HR=96 BPM, Rhythm=sr, FHWN=314/81 mmhg, Chest Pain=3 Right Pulses: Bob Ped=2, Femoral=2 14:36:18 Left Pulses: Bob Ped=2, Femoral=2 Neurological: State=Alert, Ox3, [place] Respiration: Resp=11 B/min, JpS0=137 %, O2=2 lpm 14:36:54 MD paged 14:37:05 Pressure channel 1 zeroed. 14:40:07 HR=90 bpm, EXDI=611/84 mmhg, UjP9=489.0 %, Resp=18 B/min, Pain=3 14:40:58 MD arrived. Time Out. Correct patient, correct procedure, correct physician, power injector not loaded with contrast with surgical 14:44:58 team present. Time Out Concurred by MD and individual staff in procedure. 14:45:00 Case Start 14:45:04 20 mL 1% XYLOCAINE given in lab by Nathanael Kelley in Right Groin via Subcutaneous. 14:45:35 HR=98 bpm, SLMV=573/79 mmhg, DhY5=015.0 %, Resp=13 B/min 14:46:08 Access site was Right Femoral Artery. 14:46:15 A SHEATH, FR6.5 PRELUDE 11CM FR 6.5 was advanced into the Fem Art (right) using the Percuta neous technique. 14:47:[address] Kelley via 6FR sheath for stat Labs A XB 3.5 GUIDE CATHETER FR 6 was advanced over a wire. OMNIPAQUE, 350 MG, 150ML 150ML was used for 14:47:42 injections. Recorded Pressure: Ao, HR=92, Condition=Condition 1 14:48:55 (Aorta) Ao 123/63/91 14:49:17 The LCA was injected and visualized at various angles. OMNIPAQUE, 350 MG, 150ML 150ML used . 14:50:08 HR=91 bpm, HAFR=114/81 mmhg, SpO2=99.0 %, Resp=15 B/min 14:50:48 A WIRE, I Do Now I Don't PROWATER 180CM 180CM was inserted via Fem Art (right). 14:51:10 5000 units HEPARIN given in lab by Danny Hanna, RN in Left Wrist via Peripheral IV. Order ed by Nathanael Kelley. 14:53:36 162 mg ASPIRIN given in lab by Alycia Sanders, MYNOR via Oral. Ordered by Nathanael Kelley. 14:54:28 A BALLOON, 2.5 X 12MM EUPHORA 12MM was inserted over WIRE, ASAHI PROWATER 180CM 180CM via t he LAD Prox. A BALLOON, 2.5 X 12MM EUPHORA 12MM over a WIRE, ASAHI PROWATER 180CM 180CM in the LAD Prox was inflated 14:54:29 using a 30 ELVA INDEFLATOR at 8 elva for 10 sec. 14:55:08 Balloon Removed. 14:55:09 HR=94 bpm, PDZB=131/78 mmhg, SpO2=99.0 %, Resp=17 B/min An STENT, 3.0 18 INTEGRITY 3.0 18 Bare Metal Stent was inserted through a XB 3.5 GUIDE CATHETER FR 6 over a 14:55:17 WIRE, ASAHI PROWATER 180CM 180CM. 14:56:16 Activated Clotting Time Drawn 14:57:51 Stent not deployed. Stent removed and intact. An STENT, 3.0 12 INTEGRITY 3.0 12 Bare Metal Stent was inserted through a XB 3.5 GUIDE CATHETER FR 6 over a 14:57:55 WIRE, ASAHI PROWATER 180CM 180CM. A STENT, 3.0 12 INTEGRITY 3.0 12 was deployed using a 30 ELVA INDEFLATOR at 10 atmospheres for 1 0 seconds in 14:58:44 the LAD Prox. 15:00:04 Delivery device removed 15:00:10 HR=90 bpm, KRVD=966/74 mmhg, SpO2=99.0 %, Resp=17 B/min 15:00:53 100 mcg NIPRIDE given in lab by Nathanael Kelley via Intra-coronary. Ordered by Radha Kelley rthur. 15:02:17 ACT (Normal Range 90-180) = 238 15:05:13 Wire pulled back and redirected to diagonal. 15:05:15 HR=73 bpm, GLGH=044/61 mmhg, SpO2=99.0 %, Resp=9 B/min 15:05:31 50 mcg NIPRIDE given in lab by Nathanael Kelley via Intra-coronary. Ordered by Radha Kelley rthur. 15:06:07 50 mcg NIPRIDE given in lab by Nathanael Kelley via Intra-coronary. Ordered by Radha Kelley rthur. 15:06:10 Unable to advance wire to diag, wire removed. 15:06:55 A WIRE, DAPHNEHI PROWATER 180CM 180CM was inserted via Fem Art (right). 15:07:07 Unable to advance wire to diag. Wire removed After removing the current catheter a JR 4.0 INFINITI CATHETER FR 4 was advanced over a WIRE, 3MMJ .035 180CM 15:07:36 180CM. Recorded Pressure: LV, HR=93, Condition=Condition 1 15:08:29 (Left Ventricle) LV 129/3/12 Recorded Pressure: Ao, HR=85, Condition=Condition 1 15:08:51 (Aorta) Ao 119/64/88 33 mL AGGRASTAT BOLUS given in lab by Danny Hanna, RN in Left Wrist via Peripheral IV. Order ed by Warren, 15:08:55 Nathanael. 15:08:56 The LV was manually injected with 10 cc's and visualized. OMNIPAQUE, 350 MG, 150ML 150ML u sed. 15:09:58 The RCA was injected and visualized at various angles. OMNIPAQUE, 350 MG, 150ML 150ML use d. 15:10:05 Catheter was removed 15:10:11 Case End 15:10:14 HR=89 bpm, JZWM=255/79 mmhg, Resp=16 B/min 0.15 mcg/kg/min AGGRASTAT DRIP given in lab by Alycia Sanders, MYNOR in Left Wrist via Periphera l IV. Pump/Drip Flow 15:11:06 = 12.24 ml/hr using NaCl .9 with a concentration of 12.5 mg in 250 ml. Ordered by Anand Kelley. 15:15:01 600 mg PLAVIX given in lab by Danny Hanna, MYNOR via Oral. Ordered by Nathanael Kelley. 15:15:17 HR=91 bpm, PTCA=766/76 mmhg, Resp=12 B/min 15:16:07 Urologist arrived to address hematuria. 15:20:14 FC=696 bpm, KZCY=616/80 mmhg, Resp=24 B/min 15:25:17 PL=024 bpm, OMGN=949/76 mmhg, Resp=14 B/min 15:30:12 Vitals capture stopped. End Study - Contrast Media Used In Study Contrast Total Opened (mL) Total Used (mL) Total Wasted (mL) Omnipaque 100 100 0 End Study - Maximum Contrast Load Max Contrast Load (mL) 226.7 End Study - Radiation Exposure Fluoro Time (minutes) 8.3 End Study - Patient Disposition Complications Transferred To Interventional Outcome No Telemetry Bed successful
[2017-11-13] MEDS ORDERED: SODIUM CHLORIDE 0.9% FLUSH 10 ML FLUSH IV FLUSH PRN (16:45)
[2017-11-13] MEDS ORDERED: CLOPIDOGREL 300 MG TAB PO ONE (16:45)
[2017-11-13] MEDS ORDERED: MISC INFORMATION XX ONE (16:45)
[2017-11-13] MEDS ORDERED: BACITRACIN OINT 0.9 GM PKT TOP ONE (16:45)
[2017-11-13] MEDS ORDERED: TIROFIBAN INFUSION INJ 250 ML IV SCH (16:45)
[2017-11-13] MEDS ORDERED: PROMETHAZINE HCL 12.5 MG SUPP RECTAL ONE (17:30)
[2017-11-13] MEDS: SODIUM CHLOR 0.9% 1000 ML INJ 1,000 ML IV SCH (17:30)
--- NOTE | 2017-11-13 18:31 | PD.CONS ---
[facility] Service Critical Care Medicine Consult Requested By Dr. Stewart Reason for Consult Hemorrhagic shock STEMI s/p LAD Stent Ongoing chest pain Primary Care Physician Unknown History of Present Illness Patient is an 82-year-old male with past medical history of BPH, tobacco abuse who presented 11/12/2017 with dysuria, hematuria and urinary retention. Patient was admitted to the hospitalist service and underwent cystoscopy with fulguration by Dr. Lee. Was also placed on continuous bladder irrigation. Patient developed chest pain today a.m. EKG showed significant anterolateral ST elevation troponin bumped to 6.5 emergently taken to cardiac catheterization by Dr. Kelley. Received PCI, LAD stent,. Was loaded with 600 mg Plavix and was started on Aggrastat. Post stenting went to [facility] developed hypotension and was moved to the CVICU. Initially seen by Dr. Ryan patient had gross hematuria so O negative blood 2 units were ordered stat. I evaluated the patient in CVICU. He is persistently hypotensive receiving first 2 units of blood. Started on 1 mcg/min Levophed. Remains borderline hypotensive. Patient has significant gross hematuria, and is on CBI. He is anxious and complains about 9 out of 10 chest pain, I am starting on nitro drip. Patient may need IABP pain not resolved with nitro and Dilaudid/ Morphine. I have discussed with the Dr. Kelley Review of Systems ROS Limitations: Clinical Condition (as per [facility]) Past Family Social History Allergies: Coded Allergies: No Known Allergies (Verified Allergy, Unknown, 11/10/17) Past Medical History BPH Past Surgical History Prior cystoscopy Reported Medications Flomax Active Ordered Medications Reviewed Family History No significant history of CAD or cancer Social History Smokes about half a pack a day No history etoh abuse Physical Exam Vital Signs Vital Signs Date Time Temp Pulse Resp B/P (MAP) Pulse Ox O2 Delivery O2 Flow Rate FiO2 11/13/17 18:18 97.9 78 17 91/45 99 11/13/17 18:03 97.9 89 18 108/52 (70) 98 11/13/17 17:20 98 2.00 11/13/17 16:06 82 11/13/17 16:06 98.1 83 20 146/63 (90) 100 Manual Cuff/Auscultation 11/13/17 14:10 100 Nasal Cannula 2.00 11/13/17 12:52 167/83 (111) 3/2/18 12:00 97.1 81 16 174/63 (100) 93 11/13/17 08:00 98.1 53 16 158/75 (102) 96 11/13/17 04:00 66 11/13/17 04:00 97.5 83 18 149/90 (109) 97 11/13/17 00:00 70 11/13/17 00:00 98.4 78 18 140/65 (90) 95 11/12/17 20:00 83 11/12/17 19:42 98.2 83 16 142/69 (93) 95 Physical Exam Narrative GENERAL: Well-nourished, well-developed patient. Critically ill anxious, on Levophed now SKIN: Skin assessment warm/dry. pale HEAD: Normocephalic. EYES: Pallor+ NECK: Supple, trachea midline. + JVD CARDIOVASCULAR: Regular rate and rhythm without murmurs, heart sounds are distant but patient has COPD. Currently on a 1 mcg/min of Levophed RESPIRATORY: Breath sounds equal bilaterally. No accessory muscle use. GASTROINTESTINAL: Abdomen soft, nondistended. Right inguinal hernia : Gross mass hematuria MUSCULOSKELETAL: No cyanosis, or edema. Right groin site without hematoma NEURO: Patient is awake and alert oriented, complains of severe chest pain. No obvious focal deficit. Laboratory Laboratory Tests Test 11/13/17 13:00 11/13/17 14:47 Blood Urea Nitrogen 20 Creatinine 1.49 Random Glucose 125 Calcium Level 8.9 Sodium Level 139 Potassium Level 3.2 Chloride Level 104 Carbon Dioxide Level 20.9 Anion Gap 14 Estimat Glomerular Filtration Rate 45 Troponin I LESS THAN 0.02 6.59 White Blood Count 13.2 Red Blood Count 4.32 Hemoglobin 12.8 Hematocrit 38.0 Mean Corpuscular Volume 87.9 Mean Corpuscular Hemoglobin 29.5 Mean Corpuscular Hemoglobin Concent 33.6 Red Cell Distribution Width 17.8 Platelet Count 179 Mean Platelet Volume 9.1 Neutrophils (%) (Auto) 87.1 Lymphocytes (%) (Auto) 7.0 Monocytes (%) (Auto) 5.0 Eosinophils (%) (Auto) 0.6 Basophils (%) (Auto) 0.3 Neutrophils # (Auto) 11.5 Lymphocytes # (Auto) 0.9 Monocytes # (Auto) 0.7 Eosinophils # (Auto) 0.1 Basophils # (Auto) 0.0 CBC Comment DIFF FINAL Differential Comment Date/Time Source Procedure Growth Status 11/10/17 12:20 Urine Clean Catch Urine Culture - Final <10,000 CFU/ML GRAM POSITIVE ANJEL Complete Result Diagram: 11/13/17 1447 11/13/17 1300 Imaging Reviewed Septic Shock Reassessment Septic shock perfusion: reassessment completed Assessment and Plan Assessment and Plan ASSESSMENT: Hemorrhagic shock STEMI s/p LAD Stent Ongoing chest pain Gross hematuria Status post cystoscopy and fulguration PLAN: NEURO: -Morphine as needed for pain, as needed Dilaudid for breakthrough pain. RESP: -Nasal cannula oxygen -DuoNeb every 6 hours as needed -2 Amps of bicarb given for metabolic acidosis CV: -Normal saline IV fluids 1.5L bolus and 75 ml per hour, STAT 2d echo -Levophed to keep map above 65 -Patient has ongoing chest pain and I have discussed with Dr. Kelley -I will start nitro drip watch blood pressure closely -Holding aspirin Plavix and Aggrastat due to hemorrhagic shock -If chest pain not resolving consider intra-aortic balloon pump -Cannot use beta-blockers at this time due to hemorrhagic shock GI: -NPO except meds, IV Protonix : -Monitor renal function closely. Continuous bladder irrigation -Further hematuria and CBI management per Jesus ID: -No indication for continuous antibiotics at this time HEME: -Getting transfusion of 2 units of O- blood stat -Monitor CBC CMP coags fibrinogen closely -Transfuse to keep hemoglobin more than 9 ENDO: -Electrolyte replacement per protocol PROPH: -Bilateral lower extremity SCDs. Chemical DVT prophylaxis is contraindicated at this time. Continue SCDs LINES: -Utilize peripheral IVs, central line if needed CC time 60 min Code Status Full Discussed Condition With Dr. Kelley, the patient and patient's son, bedside RN Muarice Denny MD Nov 13, 2017 18:31
[2017-11-13] MEDS ORDERED: HYDROmorphone HCL PF 2 MG/ML VIAL IV PUSH ONE (19:00)
[2017-11-13] MEDS ORDERED: SODIUM BICARBONATE 8.4% INJ 50 MEQ/50 ML SYR IV PUSH ONE ×2 (19:00)
[2017-11-13] MEDS ORDERED: SODIUM BICARBONATE 8.4% INJ 50 MEQ/50 ML SYR ONE ×2 (19:00)
[2017-11-13] MEDS ORDERED: CALCIUM CHLORIDE INJ 1 GM in SODIUM CHLORIDE 0.9% INJ 100 ML IV ONE (19:00)
[2017-11-13] MEDS ORDERED: DEXMEDETOMIDINE INJ 200 MCG in SODIUM CHLORIDE 0.9% INJ 50 ML IV PRN (19:15)
[2017-11-13] MEDS ORDERED: NITROGLYCERIN-D5W 50 MG/250 ML 250 ML IV PRN (19:30)
[2017-11-13] MEDS: ONDANSETRON HCL 4 MG/2 ML VIAL IV PUSH PRN ×2 (19:30→21:40)
--- NOTE | 2017-11-13 19:50 | MR ---
cc: Nathanael Kelley MD 11/13/2017 PROCEDURE: Emergent left heart catheterization, left ventriculography, coronary angiography percutaneous coronary intervention in the proximal left anterior descending. INDICATION: ST elevated myocardial infarction, coronary artery disease, cardiomyopathy, congestive heart failure. PROCEDURE IN DETAIL: Patient was brought to the cardiac catheterization laboratory and prepped and draped in the usual sterile fashion, 10 mL of 1% lidocaine was used to locally anesthetize the right common femoral artery. A 6-Armenian sheath placed in the right common femoral artery. We went directly to PCI with a 6-Armenian XB 3.5 guide. The patient had no labs on arrival to the laborer/grade check. We hayes labs stat out of the arterial sheath. Hemoglobin and platelet count were essentially within normal limits the day before with a baseline creatinine of 1.4. Imaging of the left main LAD, circumflex revealed a subtotal occluded proximal LAD; long hazy lesion with JUDY II flow into the distal vessel, also a small to medium size diagonal vessel just beyond this lesion that had an 80% ostial proximal lesion that was hazy as well. Patient was bolused with 70 units/kg of heparin. ACT was 237. Note, the patient was admitted for a chief complaint of bleed due to prostatitis. We were consultation with his urologist, Dr. Lee, who cleared the patient for the use of anticoagulation with heparin, aspirin, Plavix, and tirofiban. A 0.04 inch guidewire was placed into the distal LAD. The culprit lesion was predilated with a 2.5 x 10 balloon, one inflation 12 atmospheres for 20 seconds, and then placed a 3.0 x 12 Integrity stent at the lesion site, deployed one inflation 10 atmospheres for 10 seconds. Stenosis went from 95% to 0% with JUDY III flow. I then gave the patient 200 mcg of intracoronary nitroprusside, as there was no reflow in the diagonal vessel beyond the stent. Note, the stent did not detention the diagonal vessel. After nitroprusside, there was reperfusion of the diagonal vessel with the baseline 80-90% ostial proximal lesion. Then, we did diagnostic ventriculogram with a 4-Armenian JL4 and right coronary angiogram. LV pressures 130/6/12. Ejection fraction was 40%. The anterior apical wall was mild to moderately hypokinetic. The right coronary is dominant, has an ostial 20% stenosis, a proximal 50-60% stenosis and a mid to distal 30-40% stenosis. It has a large reference vessel diameter of 4.5 mm. CONCLUSION: 1. STEMI. Culprit subtotal occlusion of the proximal LAD, suspect he reperfused on the way to the laborer/grade check. JUDY II flow into the distal LAD. 2. Otherwise, mild to moderate 3-vessel coronary artery disease in the right dominant system as detailed above. 3. Moderate LV systolic dysfunction, EF 40% with mild to moderate hypokinesis of the anterior wall. RECOMMEND: Aspirin 162 mg daily, Plavix 600 mg p.o. load, then 75 mg a day for at least 12-15 months, Aggrastat drip per protocol. ACT was 237. We will treat fasting lipids and treat guidelines. Review labs and start beta-kayleigh and BOBBY inhibitor if there is no contraindications. MD JOSE A Vasques/cc , 03:25 PM , 07:48 PM
--- NOTE | 2017-11-13 19:55 | MB ---
cc: Nathanael Kelley MD DATE OF CONSULT: Bereket is a very pleasant 82-year-old gentleman, history of prostatitis, admitted with genitourinary bleed. He actually came into the ER on 11/10/2017, with chief complaint of dysuria, hematuria, urinary retention. Today, he developed chest pain, was found to have [address] segment elevation in the anterior leads. STEMI alert was called. He otherwise denies any fevers, chills, cough, GI or bleeding, PND, orthopnea, syncope or dizziness. PAST MEDICAL HISTORY: Per history of present illness. He also has a history of hypertension, prostatectomy, prostate enlargement, status post surgery 08/21/2007. SOCIAL HISTORY: He smokes half a pack of cigarettes a day. Alcohol, none. ALLERGIES: NONE. MEDICATIONS IN THE HOSPITAL: Aminocaproic acid irrigation, tamsulosin 0.4 mg daily, ciprofloxacin. PHYSICAL EXAMINATION: Blood pressure 167/83, pulse 81, respiratory rate is 16, temperature 97.1, sat 100% on 2 L nasal cannula. GENERAL: He is alert and oriented x 3, in mild to moderate distress. NECK: Supple. No JVD, no bruit. CARDIOVASCULAR: S1, S2. No murmurs, rubs, or gallops. LUNGS: Clear to auscultation bilaterally. ABDOMEN: Soft, nontender, nondistended with positive bowel sounds. EXTREMITIES: No extremity edema. LABORATORIES: White count 13.2, hemoglobin 12.8, hematocrit 38.0, platelet count 179. Troponin is less than 0.02. Sodium 139, potassium 3.2, chloride 104, bicarb ____, BUN 20, creatinine 1.49, glucose 125. INR is 1.0. EKG shows normal sinus rhythm at 93 beats/minute. There is 10-[address] segment elevation in leads V2, V3, V4, V5, consistent with acute anterior injury pattern. He had an abdominal pelvic CT on 11/10/2017, radio-opaque material within the urinary bladder, likely hematoma, underlying mass cannot be excluded, mild wall thickening of the urinary bladder, enlarged prostate, right inguinal hernia containing small bowel loops without obstruction, diverticulosis and diverticulitis, small hiatal hernia. Chest x-ray, no acute cardiopulmonary abnormalities identified. DIAGNOSES: 1. ST elevation myocardial infarction. 2. Tobacco abuse. 3. Bladder outlet obstruction. 4. Prostate enlargement. 5. Genitourinary bleed. 6. Anemia. 7. Elevated white count. 8. Acute renal failure. 9. Hypokalemia. DISCUSSION: At this point in time, the patient's STEMI alert has been called. Plan is for emergency left heart catheterization and PCI if anatomy is amenable. MD JOSE A Vasques/SB , 03:31 PM , 07:53 PM
[2017-11-13] MEDS ORDERED: SODIUM BICARBONATE 8.4% SOLN 50 MEQ/50 ML VIAL IV ONE (20:00)
[2017-11-13] MEDS ORDERED: NOREPINEPHRINE 4 MG/D5W 250 ML IV PRN (20:00)
[2017-11-13] MEDS: AMINOCAPROIC ACID INJ 3,000 MG in SODIUM CHLORIDE 0.9% IRR BAG 3,000 ML IRRIGATION SCH ×5 (20:48→23:58)
[2017-11-13] MEDS: ATORVASTATIN 10 MG TAB PO SCH (21:00)
[2017-11-13] MEDS: CARVEDILOL 3.125 MG TAB PO SCH (21:00)
[2017-11-13 21:05] LABS: EOSINOPHIL % 0.1 % (0.0-4.0); HEMATOCRIT 33.3 % (39.0-51.0); LYMPH % 7.4 % (9.0-44.0); LYMPHOCYTE # 1.3 TH/MM3 (1.0-4.8); MEAN CELL VOLUME 88.1 FL (80.0-100.0); MEAN CORPUSCULAR HGB CONC 32.9 % (32.0-36.0); MEAN PLATELET VOLUME 9.3 FL (7.0-11.0); MONO % 5.6 % (0.0-8.0); NEUT % 86.9 % (16.0-70.0); PLATELET COUNT 222 TH/MM3 (150-450); RED BLOOD COUNT 3.78 MIL/MM3 (4.50-5.90); RED CELL DISTRIBUTION WIDTH 16.5 % (11.6-17.2); WHITE BLOOD COUNT 17.3 TH/MM3 (4.0-11.0)
--- NOTE | 2017-11-13 21:06 | ECHRPT ---
Indication: CHEST PAIN CONCLUSIONS Normal left ventricular size. Wall thickness is normal. The left ventricular systolic function is gbswsozm-cy-kwwgfwl reduced with an estimated ejection fra ction in the range of 35-40%. There is apicalhypokinetic mid-anterolateral wall motion. hypokinesis with distinct regional wall motion abnormalities. Trace mitral valve regurgitation. Aortic valve sclerosis is present. Moderate thickening of the aortic valve leaflets. BP: / HR: Rhythm: Technical Quality:Good FINDINGS LEFT VENTRICLE Normal left ventricular size. Wall thickness is normal. The left ventricular systolic function is mdffeokv-wa-uypblzr reduced with an estimated ejection fra ction in the range of 35-40%. There is apicalhypokinetic mid-anterolateral wall motion. hypokinesis with distinct regional wall motion abnormalities. RIGHT VENTRICLE Normal right ventricular size and systolic function. LEFT ATRIUM The left atrial size is normal. RIGHT ATRIUM The right atrial size is normal. ATRIAL SEPTUM Normal atrial septal thickness without atrial level shunting by limited color doppler interrogation. AORTA The aortic root and proximal ascending aorta are normal in size on limited imaging. MITRAL VALVE Trace mitral valve regurgitation. AORTIC VALVE Aortic valve sclerosis is present. Moderate thickening of the aortic valve leaflets. TRICUSPID VALVE Structurally normal tricuspid valve. No tricuspid valve stenosis or regurgitation. PULMONARY VALVE The pulmonary valve is not well visualized. VESSELS The inferior vena cava is normal in size. PERICARDIUM No pericardial effusion. Nathanael Kelley MD, FACC, [facility] [place] (Electronically Signed) Final Date:13 November 2017 21:05
[2017-11-13 21:31] LABS: ALBUMIN 2.2 GM/DL (3.4-5.0); BICARBONATE 20.8 MEQ/L (21.0-32.0); BLOOD UREA NITROGEN 20 MG/DL (7-18); CALCIUM 7.6 MG/DL (8.5-10.1); CHLORIDE 108 MEQ/L (98-107); CREATININE 1.29 MG/DL (0.60-1.30); GLOMERULAR FILTRATION RATE 53 ML/MIN (>89); GLUCOSE,RANDOM 234 MG/DL (74-106); SODIUM (NA) 141 MEQ/L (136-145)
[2017-11-13 21:32] LABS: ALT (GPT) 38 U/L (12-78); AST (GOT) 223 U/L (15-37)
[2017-11-13 21:45] LABS: ALKALINE PHOSPHATASE 55 U/L (45-117); TOTAL BILIRUBIN ADULT 0.9 MG/DL (0.2-1.0); TOTAL PROTEIN 4.4 GM/DL (6.4-8.2)
[2017-11-13 21:54] LABS: INTERNATIONAL NORMALIZED RATIO 1.2 RATIO; PROTHROMBIN TIME - PATIENT 12.3 SEC (9.8-11.6)
[2017-11-13 21:56] LABS: TROPONIN I GREATER THAN 40.00 NG/ML (0.02-0.05)
[2017-11-14] VITALS (9 sets, daily range): BP systolic 106–161; BP diastolic 44–83; PULSE 79–88; RESP 12–22; TEMP 97.7–98.7; O2SAT 97–99
[2017-11-14] MEDS: AMINOCAPROIC ACID INJ 3,000 MG in SODIUM CHLORIDE 0.9% IRR BAG 3,000 ML IRRIGATION SCH ×25 (00:36→19:11)
[2017-11-14] MEDS: SODIUM CHLOR 0.9% 1000 ML INJ 1,000 ML IV SCH ×3 (01:09→15:25)
[2017-11-14] MEDS: ONDANSETRON HCL 4 MG/2 ML VIAL IV PUSH PRN ×2 (02:55→14:54)
[2017-11-14 04:25] LABS: AUTOMATED NEUTROPHIL # 16.7 TH/MM3 (1.8-7.7); BASOPHIL % 0.1 % (0.0-2.0); HEMATOCRIT 36.1 % (39.0-51.0); HEMOGLOBIN 12.7 GM/DL (13.0-17.0); LYMPH % 5.7 % (9.0-44.0); LYMPHOCYTE # 1.1 TH/MM3 (1.0-4.8); MEAN CELL VOLUME 87.2 FL (80.0-100.0); MEAN CORPUSCULAR HEMOGLOBIN 30.7 PG (27.0-34.0); MEAN CORPUSCULAR HGB CONC 35.2 % (32.0-36.0); MEAN PLATELET VOLUME 9.4 FL (7.0-11.0); MONO % 5.4 % (0.0-8.0); NEUT % 88.8 % (16.0-70.0); PLATELET COUNT 168 TH/MM3 (150-450); RED BLOOD COUNT 4.14 MIL/MM3 (4.50-5.90); RED CELL DISTRIBUTION WIDTH 16.1 % (11.6-17.2); WHITE BLOOD COUNT 18.8 TH/MM3 (4.0-11.0)
[2017-11-14 04:52] LABS: BLOOD UREA NITROGEN 22 MG/DL (7-18); CALCIUM 7.8 MG/DL (8.5-10.1); CHLORIDE 111 MEQ/L (98-107); CHOLESTEROL 142 MG/DL (120-200); CREATININE 1.13 MG/DL (0.60-1.30); GLOMERULAR FILTRATION RATE 62 ML/MIN (>89); GLUCOSE,RANDOM 187 MG/DL (74-106); SODIUM (NA) 142 MEQ/L (136-145); TRIGLYCERIDES 118 MG/DL (42-150)
[2017-11-14 05:12] LABS: CHOLESTEROL/ HDL RATIO 4.61 RATIO; HDL CHOLESTEROL 30.8 MG/DL (40.0-60.0); LDL CHOLESTEROL 88 MG/DL (0-99)
[2017-11-14 05:17] LABS: TROPONIN I GREATER THAN 40.00 NG/ML (0.02-0.05)
--- NOTE | 2017-11-14 08:21 | RADRPT ---
EXAM DATE/TIME: 11/14/2017 07:29 [place] COMPARISON: CHEST SINGLE AP, November 10, 2017, 12:24. INDICATIONS : Shortness of breath. MEDICAL HISTORY : Hypertension. SURGICAL HISTORY : Prostatectomy. ENCOUNTER: Subsequent ACUITY: 1 day PAIN SCORE: 0/10 LOCATION: Bilateral chest FINDINGS: A single view of the chest demonstrates the lungs to be symmetrically aerated without evidence of mas s, infiltrate or effusion. The cardiomediastinal contours are unremarkable. Osseous structures are intact. CONCLUSION: Normal examination. Sudarshan Espino MD on November 14, 2017 at 8:19 Board Certified Radiologist. This report was verified electronically.
[2017-11-14] MEDS: SODIUM CHLORIDE 0.9% FLUSH 10 ML FLUSH IV FLUSH SCH ×3 (09:00→22:32)
[2017-11-14] MEDS: CIPROFLOXACIN 400 MG PREMIX 200 ML IV SCH ×2 (09:14→22:31)
[2017-11-14] MEDS: CARVEDILOL 3.125 MG TAB PO SCH ×2 (09:15→22:31)
[2017-11-14] MEDS: TAMSULOSIN HCL 0.4 MG CAP PO SCH (09:15)
--- NOTE | 2017-11-14 09:17 | EKG ---
Date Performed: 11/13/2017 Time Performed: 17:37:42 PTAGE: 82 years EKG: Sinus rhythm . Extensive infarct - age undetermined Low QRS voltages in limb leads Abnormal ECG PREVIOUS TRACING : 11/13/2017 13.53 DOCTOR: Sudarshan Horn Interpretating Date/Time 11/14/2017 09:17:17
--- NOTE | 2017-11-14 09:52 | EKG ---
Date Performed: 11/13/2017 Time Performed: 13:53:52 PTAGE: 82 years EKG: Sinus rhythm POSSIBLE RIGHT VENTRICULAR CONDUCTION DELAY INFERIOR MYOCARDIAL INFARCTION , PROBABLY OLD MARKED ST ELEVATION, CONSIDER ANTEROSEPTAL INJURY ACUTE OK PREVIOUS TRACING : 11/12/2017 08.36 DOCTOR: Sudarshan Horn Interpretating Date/Time 11/14/2017 09:51:24
[2017-11-14] MEDS: CLOPIDOGREL 75 MG TAB PO SCH (10:59)
--- NOTE | 2017-11-14 11:01 | HHI.PR ---
Subjective Patient symptoms today Pt seen and examined. Gross hematuria on CBI. Few clots irrigated at bedside. No CP. On Plavix. Objective Vital Signs Vital Signs Date Time Temp Pulse Resp B/P (MAP) Pulse Ox O2 Delivery O2 Flow Rate FiO2 11/14/17 07:00 82 11/14/17 07:00 98.0 82 12 161/75 (103) 97 146/83 (104) 11/14/17 04:30 85 11/14/17 04:00 97.7 88 20 129/81 (97) 99 143/68 (93) 11/14/17 00:00 97.7 82 20 115/75 (88) 99 124/64 (84) 11/13/17 23:00 78 11/13/17 22:30 95.0 77 20 145/80 99 11/13/17 22:00 95.0 82 20 139/85 (103) 98 148/66 (93) 11/13/17 22:00 82 125/85 11/13/17 21:45 92 137/90 11/13/17 21:33 82 111/77 11/13/17 21:00 97.5 82 20 138/65 99 11/13/17 21:00 82 134/63 11/13/17 20:00 97.5 99 20 70/43 (52) 97 94/50 (65) 11/13/17 20:00 99 94/50 11/13/17 19:40 20 11/13/17 19:31 99 Nasal Cannula 2.00 11/13/17 19:30 84 125/68 11/13/17 19:22 84 11/13/17 19:00 84 20 125/98 (107) 98 108/49 (68) 11/13/17 19:00 84 125/68 11/13/17 18:50 97.0 86 19 133/54 98 11/13/17 18:31 97.9 101 16 123/49 97 11/13/17 18:18 97.9 78 17 91/45 99 11/13/17 18:03 97.9 89 18 108/52 (70) 98 11/13/17 17:20 98 2.00 11/13/17 16:06 82 11/13/17 16:06 98.1 83 20 146/63 (90) 100 Manual Cuff/Auscultation 11/13/17 14:10 100 Nasal Cannula 2.00 11/13/17 12:52 167/83 (111) 11/13/17 12:00 97.1 81 16 174/63 (100) 93 Intake & Output 11/14/17 11/14/17 07:00 19:00 Intake Total 69502 ml Output Total 41512 ml Balance 59680 ml Intake Oral 0 ml IV Total 70714 ml Packed Cells 800 ml Output Urine Total 69236 ml # Bowel Movements 0 Result Diagram: 11/14/17 0340 11/14/17 0340 Imaging Last 24 hours Impressions Chest X-Ray 11/14/17 0650 Signed Impressions: Service Date/Time: Tuesday, November 14, 2017 07:29 - CONCLUSION: Normal examination. Sudarshan Espino MD Objective Remarks Abd:soft,nt,nd Hernández: few clots irrigated; now clear 11/13/17 Abd:soft,nt,nd Hernández: irrigated to clear at bedside. 11/14 Abd:soft,nt,nd Hernández: gross hematuria on Amicar CBI Medications and IVs Current Medications Medications (Trade) Dose Ordered Sig/Micheal Route Start Time Stop Time Status Last Admin (Narcan Inj) 0.4 mg UNSCH PRN IV PUSH 11/10/17 14:15 (Flomax) 0.4 mg DAILY PO 11/11/17 09:00 11/14/17 09:15 (Catapres) 0.1 mg Q6H PRN PO 11/10/17 18:15 11/11/17 20:52 Ciprofloxacin/ Dextrose 200 ml @ 200 mls/hr Q12H IV 11/10/17 21:00 11/14/17 09:14 (Morphine Inj) 2 mg Q4H PRN IV PUSH 11/13/17 13:30 11/13/17 18:55 Aminocaproic Acid 3000 mg/Sodium Chloride 3,012 ml @ 0 mls/hr UNSCH IRRIGATION 11/13/17 14:15 11/14/17 10:38 (NS Flush) 2 ml UNSCH PRN IV FLUSH 11/13/17 16:45 (NS Flush) 2 ml BID IV FLUSH 11/13/17 21:00 (Aspirin Chew) 162 mg DAILY PO 11/14/17 09:00 (Plavix) 75 mg DAILY PO 11/14/17 09:00 (Coreg) 3.125 mg BID PO 11/13/17 21:00 11/14/17 09:15 (Lipitor) 10 mg HS PO 11/13/17 21:00 Sodium Chloride 1,000 ml @ 75 mls/hr [id number] IV 11/13/17 17:30 11/14/17 01:09 Dexmedetomidine HCl 200 mcg/ Sodium Chloride 52 ml @ 3.53 mls/hr TITRATE PRN IV 11/13/17 19:15 Nitroglycerin/ Dextrose 250 ml @ 1.5 mls/hr TITRATE PRN IV 11/13/17 19:30 11/13/17 19:30 (Zofran Inj) 4 mg Q6HR PRN IV PUSH 11/13/17 19:30 11/14/17 02:55 Norepinephrine Bitartrate 250 ml @ 7.5 mls/hr TITRATE PRN IV 11/13/17 20:00 11/13/17 19:00 Assessment and Plan Assessment and Plan 82 y.o male with gross hematuria Hematuria clears with manual irrigation Irrigate hernández Q 2 hours If persists, will need cysto. If clears can be discharged with hernández in place and perform void trial next week. 11/13/17 82 y.o male with gross hematuria s/p cysto with fulguration Hernández irrigated to clear this AM If urine remains clear can d/c home with hernández this afternoon and f/u next Wed. AM for void trial in office. 11/14 82 y.o male s/p NSTEMI yesterday s/p cardiac stent on Plavix with h/o prostatic bleeding s/p cysto/fulguration Will need to continue Amicar CBI Irrigate hernández prn clots Follow Hgb Creatinine improved. Rafita Lee DO Nov 14, 2017 11:01
[2017-11-14] MEDS ORDERED: SODIUM PHOSPHATE INJ 30 MMOL in SODIUM CHLOR 0.9% 250 ML INJ 240 ML IV PRN (11:45)
[2017-11-14] MEDS ORDERED: POTASSIUM PHOSPHATE INJ 30 MMOL in SODIUM CHLOR 0.9% 250 ML INJ 250 ML IV PRN (11:45)
[2017-11-14] MEDS ORDERED: POTASSIUM CHLOR 20 MEQ PREMIX 100 ML IV PRN (11:45)
[2017-11-14] MEDS ORDERED: MAGNESIUM SULFATE INJ 2 GM in SODIUM CHLORIDE 0.9% INJ 96 ML IV PRN (11:45)
[2017-11-14] MEDS ORDERED: MAGNESIUM SULFATE INJ 4 GM in SODIUM CHLORIDE 0.9% INJ 92 ML IV PRN (11:45)
[2017-11-14] MEDS ORDERED: MAGNESIUM OXIDE 400 MG TAB PO PRN (11:45)
[2017-11-14] MEDS ORDERED: POTASSIUM PHOSPHATE MONOBASIC 500 MG TAB PO/TUBE PRN (11:45)
[2017-11-14] MEDS ORDERED: POTASSIUM CHLOR 40 MEQ PREMIX 100 ML IV PRN ×2 (11:45)
--- NOTE | 2017-11-14 11:48 | HHI.CCPN ---
Subjective Remarks/Hospital Course 11/13: Patient is an 82-year-old male with past medical history of BPH, tobacco abuse who presented 11/12/2017 with dysuria, hematuria and urinary retention. Patient was admitted to the hospitalist service and underwent cystoscopy with fulguration by Dr. Lee. Was also placed on continuous bladder irrigation. Patient developed chest pain today a.m. EKG showed significant anterolateral ST elevation troponin bumped to 6.5 emergently taken to cardiac catheterization by Dr. Kelley. Received PCI, LAD stent,. Was loaded with 600 mg Plavix and was started on Aggrastat. Post stenting went to CIC developed hypotension and was moved to the CVICU. Initially seen by Dr. Ryan patient had gross hematuria so O negative blood 2 units were ordered stat. I evaluated the patient in CVICU. He is persistently hypotensive receiving first 2 units of blood. Started on 1 mcg/min Levophed. Remains borderline hypotensive. Patient has significant gross hematuria, and is on CBI. He is anxious and complains about 9 out of 10 chest pain, I am starting on nitro drip. Patient may need IABP pain not resolved with nitro and Dilaudid/ Morphine. I have discussed with Dr. Kelley. 11/14: Resting comfortably in bed. Received 3 units PRBCs yesterday. Chest pain resolved currently. CBI with Amicar ongoing. Minimal pink tinged CBI fluid noted. Objective Vital Signs Date Time Temp Pulse Resp B/P (MAP) Pulse Ox O2 Delivery O2 Flow Rate FiO2 11/14/17 07:00 82 11/14/17 07:00 98.0 12 161/75 (103) 97 146/83 (104) 11/13/17 19:31 Nasal Cannula 2.00 Intake and Output 11/14/17 11/14/17 11/15/17 08:00 16:00 00:00 Intake Total 80519 ml Output Total 8180 ml Balance 41041 ml Result Diagram: 11/14/17 0340 11/14/17 0340 Other Results Laboratory Tests Test 11/13/17 18:30 Blood Gas Puncture Site RT RADIAL Blood Gas Patient Temperature 98.6 Blood Gas HCO3 15 mmol/L (22-26) Blood Gas Base Excess -9.2 mmol/L (-2-2) Blood Gas Oxygen Saturation 96 % (90-100) Arterial Blood pH 7.38 (7.380-7.420) Arterial Blood Partial Pressure CO2 26 mmHg (38-42) Arterial Blood Partial Pressure O2 107 mmHg (61-120) Arterial Blood Oxygen Content 15.2 Vol % (12.0-20.0) Arterial Blood Carboxyhemoglobin 0.6 % (0-4) Arterial Blood Methemoglobin 1.4 % (0-2) Blood Gas Hemoglobin 11.2 G/DL (12.0-16.0) Oxygen Delivery Device NASAL CANNULA Blood Gas Liter Flow 2 L/M Imaging Reviewed Objective Remarks Narrative GENERAL: Well-nourished, well-developed patient. Laying in bed not in any acute distress. SKIN: Skin assessment warm/dry. HEAD: Normocephalic. EYES: Pallor+ NECK: Supple, trachea midline. + JVD CARDIOVASCULAR: Regular rate and rhythm without murmurs, RESPIRATORY: Breath sounds equal bilaterally. No accessory muscle use. GASTROINTESTINAL: Abdomen soft, nondistended. Right inguinal hernia : CBI ongoing with minimal blood-tinged fluid on return. MUSCULOSKELETAL: No cyanosis, or edema. Right groin site without hematoma NEURO: Patient is awake and alert oriented, No obvious focal deficit. A/P Assessment and Plan ASSESSMENT: Hemorrhagic shock STEMI s/p LAD Stent Ongoing chest pain Gross hematuria Status post cystoscopy and fulguration PLAN: NEURO: -Morphine as needed for pain, as needed Dilaudid for breakthrough pain. RESP: -Nasal cannula oxygen -DuoNeb every 6 hours as needed -2 Amps of bicarb given for metabolic acidosis CV: -Continue maintenance IV fluids. -Levophed to keep map above 65, currently off -Off nitro drip. -Aspirin and Plavix placed on hold yesterday due to severe hematuria, cardiology and to decide regarding resuming. -Resumed Coreg. 2-D echo with low LVEF. Consider BOBBY inhibitor. Defer to cardiology GI: -Advance by mouth as tolerated, IV Protonix : -Monitor renal function closely. Continuous bladder irrigation with Amicar per urology -Further hematuria and CBI management per Jesus ID: -On IV Cipro HEME: -Status post 3 units PRBCs on 3/2 for monica hematuria with hypotension. -Monitor CBC CMP coags fibrinogen closely -Transfuse to keep hemoglobin more than 9 ENDO: -Electrolyte replacement per protocol PROPH: -Bilateral lower extremity SCDs. Chemical DVT prophylaxis is contraindicated at this time. Continue SCDs LINES: -Utilize peripheral IVs, central line if needed. Arterial sheath in right groin -discontinued when okay with cardiology. Brandan Ryan MD Nov 14, 2017 11:48
[2017-11-14] MEDS: ASPIRIN 81 MG CHEW TAB PO SCH (14:10)
--- NOTE | 2017-11-14 16:42 | PD.CARD.PN ---
Subjective Subjective Remarks alert in nad, assymptomatic Objective Medications Current Medications Medications (Trade) Dose Ordered Sig/Micheal Route Start Time Stop Time Status Last Admin (Narcan Inj) 0.4 mg UNSCH PRN IV PUSH 11/10/17 14:15 (Flomax) 0.4 mg DAILY PO 11/11/17 09:00 11/14/17 09:15 (Catapres) 0.1 mg Q6H PRN PO 11/10/17 18:15 11/11/17 20:52 Ciprofloxacin/ Dextrose 200 ml @ 200 mls/hr Q12H IV 11/10/17 21:00 11/14/17 09:14 (Morphine Inj) 2 mg Q4H PRN IV PUSH 11/13/17 13:30 11/13/17 18:55 Aminocaproic Acid 3000 mg/Sodium Chloride 3,012 ml @ 0 mls/hr UNSCH IRRIGATION 11/13/17 14:15 11/14/17 15:25 (NS Flush) 2 ml UNSCH PRN IV FLUSH 11/13/17 16:45 (NS Flush) 2 ml BID IV FLUSH 11/13/17 21:00 (Aspirin Chew) 162 mg DAILY PO 11/14/17 09:00 11/14/17 14:10 (Plavix) 75 mg DAILY PO 11/14/17 09:00 11/14/17 10:59 (Coreg) 3.125 mg BID PO 11/13/17 21:00 11/14/17 09:15 (Lipitor) 10 mg HS PO 11/13/17 21:00 Sodium Chloride 1,000 ml @ 75 mls/hr [id number] IV 11/13/17 17:30 11/14/17 15:25 Dexmedetomidine HCl 200 mcg/ Sodium Chloride 52 ml @ 3.53 mls/hr TITRATE PRN IV 11/13/17 19:15 Nitroglycerin/ Dextrose 250 ml @ 1.5 mls/hr TITRATE PRN IV 11/13/17 19:30 11/13/17 19:30 (Zofran Inj) 4 mg Q6HR PRN IV PUSH 11/13/17 19:30 11/14/17 14:54 Norepinephrine Bitartrate 250 ml @ 7.5 mls/hr TITRATE PRN IV 11/13/17 20:00 11/13/17 19:00 Potassium Chloride 100 ml @ 50 mls/hr Q2H PRN IV 11/14/17 11:45 Potassium Chloride 100 ml @ 50 mls/hr Q2H PRN IV 11/14/17 11:45 Potassium Chloride 100 ml @ 25 mls/hr UNSCH PRN IV 11/14/17 11:45 Potassium Chloride 100 ml @ 50 mls/hr Q2H PRN IV 11/14/17 11:45 Magnesium Sulfate 4 gm/Sodium Chloride 100 ml @ 50 mls/hr UNSCH PRN IV 11/14/17 11:45 (Mag-Ox) 800 mg UNSCH PRN PO 11/14/17 11:45 Magnesium Sulfate 2 gm/Sodium Chloride 100 ml @ 50 mls/hr UNSCH PRN IV 11/14/17 11:45 (K-Phos) 2,000 mg Q4H PRN PO 11/14/17 11:45 Sodium Phosphate 30 mmol/Sodium Chloride 250 ml @ 42 mls/hr UNSCH PRN IV 11/14/17 11:45 (K-Phos) 2,000 mg UNSCH PRN PO/TUBE 11/14/17 11:45 Potassium Phosphate 30 mmol/ Sodium Chloride 260 ml @ 42 mls/hr UNSCH PRN IV 11/14/17 11:45 Vital Signs / I&O Vital Signs Date Time Temp Pulse Resp B/P (MAP) Pulse Ox O2 Delivery O2 Flow Rate FiO2 11/14/17 11:00 82 11/14/17 11:00 98.6 82 14 135/64 (87) 99 157/70 (99) 11/14/17 10:45 99 Nasal Cannula 2.00 11/14/17 07:00 82 11/14/17 07:00 98.0 82 12 161/75 (103) 97 146/83 (104) 11/14/17 04:30 85 11/14/17 04:00 97.7 88 20 129/81 (97) 99 143/68 (93) 11/14/17 00:00 97.7 82 20 115/75 (88) 99 124/64 (84) 11/13/17 23:00 78 11/13/17 22:30 95.0 77 20 145/80 99 11/13/17 22:00 95.0 82 20 139/85 (103) 98 148/66 (93) 11/13/17 22:00 82 125/85 11/13/17 21:45 92 137/90 11/13/17 21:33 82 111/77 11/13/17 21:00 97.5 82 20 138/65 99 11/13/17 21:00 82 134/63 11/13/17 20:00 97.5 99 20 70/43 (52) 97 94/50 (65) 11/13/17 20:00 99 94/50 11/13/17 19:40 20 11/13/17 19:31 99 Nasal Cannula 2.00 11/13/17 19:30 84 125/68 11/13/17 19:22 84 11/13/17 19:00 84 20 125/98 (107) 98 108/49 (68) 11/13/17 19:00 84 125/68 11/13/17 18:50 97.0 86 19 133/54 98 11/13/17 18:31 97.9 101 16 123/49 97 11/13/17 18:18 97.9 78 17 91/45 99 11/13/17 18:03 97.9 89 18 108/52 (70) 98 11/13/17 17:20 98 2.00 I/O 11/13/17 11/13/17 11/13/17 11/14/17 11/14/17 11/14/17 07:00 15:00 23:00 07:00 15:00 23:00 Intake Total 8830 ml 90738 ml 200 ml Output Total 800 ml 6400 ml 8180 ml Balance -800 ml 2430 ml 95472 ml 200 ml Intake Oral 0 ml IV Total 7600 ml 68882 ml 200 ml Packed Cells 1200 ml Blood Product IV Normal Saline Flush 30 ml Output Urine Total 800 ml 6400 ml 8180 ml # Bowel Movements 0 0 Physical Exam GENERAL: SKIN: Warm and dry. HEAD: Normocephalic. EYES: No scleral icterus. No injection or drainage. NECK: Supple, trachea midline. No JVD or lymphadenopathy. CARDIOVASCULAR: Regular rate and rhythm without murmurs, gallops, or rubs. RESPIRATORY: Breath sounds equal bilaterally. No accessory muscle use. GASTROINTESTINAL: Abdomen soft, non-tender, nondistended. MUSCULOSKELETAL: No cyanosis, or edema. BACK: Nontender without obvious deformity. No CVA tenderness. Laboratory Laboratory Tests Test 3/2/18 18:30 11/13/17 20:30 11/13/17 21:00 11/14/17 03:40 Blood Gas Puncture Site RT RADIAL Blood Gas Patient Temperature 98.6 Blood Gas HCO3 15 mmol/L Blood Gas Base Excess -9.2 mmol/L Blood Gas Oxygen Saturation 96 % Arterial Blood pH 7.38 Arterial Blood Partial Pressure CO2 26 mmHg Arterial Blood Partial Pressure O2 107 mmHg Arterial Blood Oxygen Content 15.2 Vol % Arterial Blood Carboxyhemoglobin 0.6 % Arterial Blood Methemoglobin 1.4 % Blood Gas Hemoglobin 11.2 G/DL Oxygen Delivery Device NASAL CANNULA Blood Gas Liter Flow 2 L/M White Blood Count 17.3 TH/MM3 18.8 TH/MM3 Red Blood Count 3.78 MIL/MM3 4.14 MIL/MM3 Hemoglobin 11.0 GM/DL 12.7 GM/DL Hematocrit 33.3 % 36.1 % Mean Corpuscular Volume 88.1 FL 87.2 FL Mean Corpuscular Hemoglobin 29.0 PG 30.7 PG Mean Corpuscular Hemoglobin Concent 32.9 % 35.2 % Red Cell Distribution Width 16.5 % 16.1 % Platelet Count 222 TH/MM3 168 TH/MM3 Mean Platelet Volume 9.3 FL 9.4 FL Neutrophils (%) (Auto) 86.9 % 88.8 % Lymphocytes (%) (Auto) 7.4 % 5.7 % Monocytes (%) (Auto) 5.6 % 5.4 % Eosinophils (%) (Auto) 0.1 % 0.0 % Basophils (%) (Auto) 0.0 % 0.1 % Neutrophils # (Auto) 15.0 TH/MM3 16.7 TH/MM3 Lymphocytes # (Auto) 1.3 TH/MM3 1.1 TH/MM3 Monocytes # (Auto) 1.0 TH/MM3 1.0 TH/MM3 Eosinophils # (Auto) 0.0 TH/MM3 0.0 TH/MM3 Basophils # (Auto) 0.0 TH/MM3 0.0 TH/MM3 CBC Comment DIFF FINAL DIFF FINAL Differential Comment Blood Urea Nitrogen 20 MG/DL 22 MG/DL Creatinine 1.29 MG/DL 1.13 MG/DL Random Glucose 234 MG/DL 187 MG/DL Total Protein 4.4 GM/DL Albumin 2.2 GM/DL Calcium Level 7.6 MG/DL 7.8 MG/DL Alkaline Phosphatase 55 U/L Aspartate Amino Transf (AST/SGOT) 223 U/L Alanine Aminotransferase (ALT/SGPT) 38 U/L Total Bilirubin 0.9 MG/DL Sodium Level 141 MEQ/L 142 MEQ/L Potassium Level 3.6 MEQ/L 3.7 MEQ/L Chloride Level 108 MEQ/L 111 MEQ/L Carbon Dioxide Level 20.8 MEQ/L 23.0 MEQ/L Anion Gap 12 MEQ/L 8 MEQ/L Estimat Glomerular Filtration Rate 53 ML/MIN 62 ML/MIN Total Creatine Kinase 1557 U/L 2079 U/L Creatine Kinase MB 260.6 NG/ML 418.6 NG/ML Creatine Kinase MB % 16.7 % 20.1 % Troponin I GREATER THAN 40.00 NG/ML GREATER THAN 40.00 NG/ML Prothrombin Time 12.3 SEC Prothromb Time International Ratio 1.2 RATIO Activated Partial Thromboplast Time 24.3 SEC Fibrinogen 242 mg/dL Lactic Acid Level 3.3 mmol/L Triglycerides Level 118 MG/DL Cholesterol Level 142 MG/DL LDL Cholesterol 88 MG/DL HDL Cholesterol 30.8 MG/DL Cholesterol/HDL Ratio 4.61 RATIO Test 11/14/17 09:45 Total Creatine Kinase 1388 U/L Creatine Kinase MB 272.0 NG/ML Creatine Kinase MB % 19.6 % Imaging Last 24 hours Impressions Chest X-Ray 11/14/17 0650 Signed Impressions: Service Date/Time: Tuesday, November 14, 2017 07:29 - CONCLUSION: Normal examination. Sudarshan Espino MD Assessment and Plan Problem List: (1) Cardiomyopathy ICD Codes: I42.9 - Cardiomyopathy, unspecified (2) CAD (coronary artery disease) ICD Codes: I25.10 - Atherosclerotic heart disease of [place] coronary artery without angina pectoris (3) Hematuria ICD Codes: R31.9 - Hematuria, unspecified Status: Acute (4) Gross hematuria ICD Codes: R31.0 - Gross hematuria Status: Acute Assessment and Plan 1.) CAD - pod#1 primary pci, assymptomatic, continue aspirin, plavix, lipitor, coreg, dov held due ubstructive uopathy Nathanael Kelley MD Nov 14, 2017 16:42
[2017-11-14 16:50] LABS: HEMATOCRIT 29.1 % (39.0-51.0); HEMOGLOBIN 10.1 GM/DL (13.0-17.0); MEAN CELL VOLUME 88.4 FL (80.0-100.0); MEAN CORPUSCULAR HEMOGLOBIN 30.7 PG (27.0-34.0); MEAN CORPUSCULAR HGB CONC 34.7 % (32.0-36.0); MEAN PLATELET VOLUME 9.4 FL (7.0-11.0); PLATELET COUNT 156 TH/MM3 (150-450); RED BLOOD COUNT 3.29 MIL/MM3 (4.50-5.90); RED CELL DISTRIBUTION WIDTH 16.3 % (11.6-17.2); WHITE BLOOD COUNT 13.3 TH/MM3 (4.0-11.0)
[2017-11-14] MEDS ORDERED: AMINOCAPROIC ACID IRRIGATION SCH (17:00)
[2017-11-14] MEDS ORDERED: SODIUM CHLOR 0.9% IRRIGATION SCH (17:00)
[2017-11-14] MEDS: ATORVASTATIN 10 MG TAB PO SCH (22:32)
[2017-11-14 23:24] LABS: HEMATOCRIT 26.2 % (39.0-51.0); HEMOGLOBIN 9.1 GM/DL (13.0-17.0)
[2017-11-15] VITALS (7 sets, daily range): BP systolic 94–126; BP diastolic 46–60; PULSE 76–90; RESP 14–20; TEMP 97.4–98.7; O2SAT 92–98
[2017-11-15] MEDS: AMINOCAPROIC ACID INJ 3,000 MG in SODIUM CHLORIDE 0.9% IRR BAG 3,000 ML IRRIGATION SCH ×5 (01:47→23:17)
[2017-11-15 05:20] LABS: AUTOMATED NEUTROPHIL # 10.7 TH/MM3 (1.8-7.7); BASOPHIL % 0.1 % (0.0-2.0); EOSINOPHIL % 0.3 % (0.0-4.0); HEMOGLOBIN 8.9 GM/DL (13.0-17.0); LYMPHOCYTE # 1.5 TH/MM3 (1.0-4.8); MEAN CORPUSCULAR HEMOGLOBIN 30.1 PG (27.0-34.0); MEAN CORPUSCULAR HGB CONC 34.2 % (32.0-36.0); MEAN PLATELET VOLUME 9.7 FL (7.0-11.0); MONO % 7.6 % (0.0-8.0); PLATELET COUNT 109 TH/MM3 (150-450); RED BLOOD COUNT 2.95 MIL/MM3 (4.50-5.90); RED CELL DISTRIBUTION WIDTH 16.2 % (11.6-17.2); WHITE BLOOD COUNT 13.2 TH/MM3 (4.0-11.0)
[2017-11-15 05:54] LABS: ALBUMIN 2.2 GM/DL (3.4-5.0); CALCIUM 7.1 MG/DL (8.5-10.1); CALCIUM-PROTEIN CORRECTED 8.4 MG/DL (8.5-10.1); CREATININE 0.97 MG/DL (0.60-1.30); TOTAL BILIRUBIN ADULT 0.6 MG/DL (0.2-1.0); TOTAL PROTEIN 4.7 GM/DL (6.4-8.2)
[2017-11-15] MEDS ORDERED: POTASSIUM CHLORIDE 25 MEQ EFFERVESCENT TAB PO ONE (08:00)
[2017-11-15] MEDS: TAMSULOSIN HCL 0.4 MG CAP PO SCH (09:00)
--- NOTE | 2017-11-15 09:21 | HHI.PR ---
Subjective Patient symptoms today Pt seen and examined. Feels better. No CP. Urine is now clear. Hgb stabilizing at 8.9. Objective Vital Signs Vital Signs Date Time Temp Pulse Resp B/P (MAP) Pulse Ox O2 Delivery O2 Flow Rate FiO2 11/15/17 03:00 98.4 89 20 110/55 (73) 92 115/48 (70) 11/15/17 03:00 89 11/14/17 23:00 98.7 87 18 110/57 (74) 97 114/44 (67) 11/14/17 23:00 87 11/14/17 19:00 81 11/14/17 19:00 98.3 81 22 106/58 (74) 99 134/63 (86) 11/14/17 19:00 81 134/63 11/14/17 15:00 98.4 79 14 111/65 (80) 99 136/65 (88) 11/14/17 15:00 79 11/14/17 11:00 82 11/14/17 11:00 98.6 82 14 135/64 (87) 99 157/70 (99) 11/14/17 10:45 99 Nasal Cannula 2.00 Intake & Output 11/15/17 11/15/17 07:00 19:00 Intake Total 7400 ml Output Total 3125 ml Balance 4275 ml Intake Oral 200 ml IV Total 7200 ml Output Urine Total 3125 ml # Bowel Movements 1 Result Diagram: 11/15/175 11/15/17444 Objective Remarks Abd:soft,nt,nd Hernández: few clots irrigated; now clear 11/13/17 Abd:soft,nt,nd Hernández: irrigated to clear at bedside. 11/14 Abd:soft,nt,nd Hernández: gross hematuria on Amicar CBI 11/15 Abd:soft,nt,nd Hernández: gross hematuria is now clear on Amicar CBI; will titrate down Medications and IVs Current Medications Medications (Trade) Dose Ordered Sig/Micheal Route Start Time Stop Time Status Last Admin (Narcan Inj) 0.4 mg UNSCH PRN IV PUSH 11/10/17 14:15 (Flomax) 0.4 mg DAILY PO 11/11/17 09:00 11/14/17 09:15 (Catapres) 0.1 mg Q6H PRN PO 11/10/17 18:15 11/11/17 20:52 Ciprofloxacin/ Dextrose 200 ml @ 200 mls/hr Q12H IV 11/10/17 21:00 11/14/17 22:31 (Morphine Inj) 2 mg Q4H PRN IV PUSH 11/13/17 13:30 11/13/17 18:55 Aminocaproic Acid 3000 mg/Sodium Chloride 3,012 ml @ 0 mls/hr UNSCH IRRIGATION 11/13/17 14:15 11/15/17 08:35 (NS Flush) 2 ml UNSCH PRN IV FLUSH 11/13/17 16:45 (NS Flush) 2 ml BID IV FLUSH 11/13/17 21:00 11/14/17 22:32 (Aspirin Chew) 162 mg DAILY PO 11/14/17 09:00 11/14/17 14:10 (Plavix) 75 mg DAILY PO 11/14/17 09:00 11/14/17 10:59 (Coreg) 3.125 mg BID PO 11/13/17 21:00 11/14/17 22:31 (Lipitor) 10 mg HS PO 11/13/17 21:00 11/14/17 22:32 Sodium Chloride 1,000 ml @ 75 mls/hr [id number] IV 11/13/17 17:30 11/14/17 04:59 Dexmedetomidine HCl 200 mcg/ Sodium Chloride 52 ml @ 3.53 mls/hr TITRATE PRN IV 11/13/17 19:15 Nitroglycerin/ Dextrose 250 ml @ 1.5 mls/hr TITRATE PRN IV 11/13/17 19:30 11/13/17 19:30 (Zofran Inj) 4 mg Q6HR PRN IV PUSH 11/13/17 19:30 11/14/17 14:54 Norepinephrine Bitartrate 250 ml @ 7.5 mls/hr TITRATE PRN IV 11/13/17 20:00 11/13/17 19:00 Potassium Chloride 100 ml @ 50 mls/hr Q2H PRN IV 11/14/17 11:45 Potassium Chloride 100 ml @ 50 mls/hr Q2H PRN IV 11/14/17 11:45 11/15/17 06:45 Potassium Chloride 100 ml @ 25 mls/hr UNSCH PRN IV 11/14/17 11:45 Potassium Chloride 100 ml @ 50 mls/hr Q2H PRN IV 11/14/17 11:45 Magnesium Sulfate 4 gm/Sodium Chloride 100 ml @ 50 mls/hr UNSCH PRN IV 11/14/17 11:45 (Mag-Ox) 800 mg UNSCH PRN PO 11/14/17 11:45 Magnesium Sulfate 2 gm/Sodium Chloride 100 ml @ 50 mls/hr UNSCH PRN IV 11/14/17 11:45 (K-Phos) 2,000 mg Q4H PRN PO 11/14/17 11:45 Sodium Phosphate 30 mmol/Sodium Chloride 250 ml @ 42 mls/hr UNSCH PRN IV 11/14/17 11:45 (K-Phos) 2,000 mg UNSCH PRN PO/TUBE 11/14/17 11:45 Potassium Phosphate 30 mmol/ Sodium Chloride 260 ml @ 42 mls/hr UNSCH PRN IV 11/14/17 11:45 Aminocaproic Acid 1000 mg/Sodium Chloride 1,004 ml @ 0 mls/hr UNSCH IRRIGATION 11/14/17 17:00 Future hold Assessment and Plan Assessment and Plan 82 y.o male with gross hematuria Hematuria clears with manual irrigation Irrigate hernández Q 2 hours If persists, will need cysto. If clears can be discharged with hernández in place and perform void trial next week. 11/13/17 82 y.o male with gross hematuria s/p cysto with fulguration Hernández irrigated to clear this AM If urine remains clear can d/c home with hernández this afternoon and f/u next Wed. AM for void trial in office. 11/14 82 y.o male s/p NSTEMI yesterday s/p cardiac stent on Plavix with h/o prostatic bleeding s/p cysto/fulguration Will need to continue Amicar CBI Irrigate hernández prn clots Follow Hgb Creatinine improved. 11/15 82 y.o male s/p NSTEMI with h/o prostatic bleeding Slowly titrate down the Amicar Follow Hgb Continue Plavix Rafita Lee DO Nov 15, 2017 09:21
[2017-11-15] MEDS: CIPROFLOXACIN 400 MG PREMIX 200 ML IV SCH (09:24)
[2017-11-15] MEDS: SODIUM CHLORIDE 0.9% FLUSH 10 ML FLUSH IV FLUSH SCH ×2 (09:25→21:00)
[2017-11-15] MEDS: CLOPIDOGREL 75 MG TAB PO SCH (09:26)
[2017-11-15] MEDS: ASPIRIN 81 MG CHEW TAB PO SCH (09:26)
[2017-11-15] MEDS: CARVEDILOL 3.125 MG TAB PO SCH (09:26)
--- NOTE | 2017-11-15 12:36 | PD.CARD.PN ---
Subjective Subjective Remarks alert in nad, assymptomatic Objective Medications Current Medications Medications (Trade) Dose Ordered Sig/Micheal Route Start Time Stop Time Status Last Admin (Narcan Inj) 0.4 mg UNSCH PRN IV PUSH 11/10/17 14:15 (Flomax) 0.4 mg DAILY PO 11/11/17 09:00 11/14/17 09:15 (Catapres) 0.1 mg Q6H PRN PO 11/10/17 18:15 11/11/17 20:52 Ciprofloxacin/ Dextrose 200 ml @ 200 mls/hr Q12H IV 11/10/17 21:00 11/15/17 09:24 (Morphine Inj) 2 mg Q4H PRN IV PUSH 11/13/17 13:30 11/13/17 18:55 Aminocaproic Acid 3000 mg/Sodium Chloride 3,012 ml @ 0 mls/hr UNSCH IRRIGATION 11/13/17 14:15 11/15/17 10:36 (NS Flush) 2 ml UNSCH PRN IV FLUSH 11/13/17 16:45 (NS Flush) 2 ml BID IV FLUSH 11/13/17 21:00 11/15/17 09:25 (Aspirin Chew) 162 mg DAILY PO 11/14/17 09:00 11/15/17 09:26 (Plavix) 75 mg DAILY PO 11/14/17 09:00 11/15/17 09:26 (Coreg) 3.125 mg BID PO 11/13/17 21:00 11/15/17 09:26 (Lipitor) 10 mg HS PO 11/13/17 21:00 11/14/17 22:32 Sodium Chloride 1,000 ml @ 75 mls/hr [id number] IV 11/13/17 17:30 11/14/17 04:59 Dexmedetomidine HCl 200 mcg/ Sodium Chloride 52 ml @ 3.53 mls/hr TITRATE PRN IV 11/13/17 19:15 Nitroglycerin/ Dextrose 250 ml @ 1.5 mls/hr TITRATE PRN IV 11/13/17 19:30 11/13/17 19:30 (Zofran Inj) 4 mg Q6HR PRN IV PUSH 11/13/17 19:30 11/14/17 14:54 Norepinephrine Bitartrate 250 ml @ 7.5 mls/hr TITRATE PRN IV 11/13/17 20:00 11/13/17 19:00 Potassium Chloride 100 ml @ 50 mls/hr Q2H PRN IV 11/14/17 11:45 Potassium Chloride 100 ml @ 50 mls/hr Q2H PRN IV 11/14/17 11:45 11/15/17 06:45 Potassium Chloride 100 ml @ 25 mls/hr UNSCH PRN IV 11/14/17 11:45 Potassium Chloride 100 ml @ 50 mls/hr Q2H PRN IV 11/14/17 11:45 Magnesium Sulfate 4 gm/Sodium Chloride 100 ml @ 50 mls/hr UNSCH PRN IV 11/14/17 11:45 (Mag-Ox) 800 mg UNSCH PRN PO 11/14/17 11:45 Magnesium Sulfate 2 gm/Sodium Chloride 100 ml @ 50 mls/hr UNSCH PRN IV 11/14/17 11:45 (K-Phos) 2,000 mg Q4H PRN PO 11/14/17 11:45 Sodium Phosphate 30 mmol/Sodium Chloride 250 ml @ 42 mls/hr UNSCH PRN IV 11/14/17 11:45 (K-Phos) 2,000 mg UNSCH PRN PO/TUBE 11/14/17 11:45 Potassium Phosphate 30 mmol/ Sodium Chloride 260 ml @ 42 mls/hr UNSCH PRN IV 11/14/17 11:45 Aminocaproic Acid 1000 mg/Sodium Chloride 1,004 ml @ 0 mls/hr UNSCH IRRIGATION 11/14/17 17:00 Future hold Vital Signs / I&O Vital Signs Date Time Temp Pulse Resp B/P (MAP) Pulse Ox O2 Delivery O2 Flow Rate FiO2 11/15/17 11:00 98.0 82 16 94/51 (65) 98 Arterial Line 11/15/17 11:00 82 11/15/17 07:00 82 11/15/17 07:00 98.2 82 14 113/56 (75) 95 126/46 (72) 11/15/17 03:00 98.4 89 20 110/55 (73) 92 115/48 (70) 11/15/17 03:00 89 11/14/17 23:00 98.7 87 18 110/57 (74) 97 114/44 (67) 11/14/17 23:00 87 11/14/17 19:00 81 11/14/17 19:00 98.3 81 22 106/58 (74) 99 134/63 (86) 11/14/17 19:00 81 134/63 11/14/17 15:00 98.4 79 14 111/65 (80) 99 136/65 (88) 11/14/17 15:00 79 I/O 11/14/17 11/14/17 11/14/17 11/15/17 11/15/17 11/15/17 07:00 15:00 23:00 07:00 15:00 23:00 Intake Total 50820 ml 200 ml 1296.4 ml 7200 ml Output Total 8180 ml 3050 ml 3125 ml Balance 24805 ml 200 ml -1753.6 ml 4075 ml Intake Oral 0 ml 240 ml 200 ml IV Total 49834 ml 200 ml 1056.4 ml 7000 ml Output Urine Total 8180 ml 3050 ml 3125 ml # Bowel Movements 0 0 1 Physical Exam GENERAL: SKIN: Warm and dry. HEAD: Normocephalic. EYES: No scleral icterus. No injection or drainage. NECK: Supple, trachea midline. No JVD or lymphadenopathy. CARDIOVASCULAR: Regular rate and rhythm without murmurs, gallops, or rubs. RESPIRATORY: Breath sounds equal bilaterally. No accessory muscle use. GASTROINTESTINAL: Abdomen soft, non-tender, nondistended. MUSCULOSKELETAL: No cyanosis, or edema. BACK: Nontender without obvious deformity. No CVA tenderness. Laboratory Laboratory Tests Test 11/14/17 16:05 11/14/17 23:00 11/15/17 04:45 White Blood Count 13.3 TH/MM3 13.2 TH/MM3 Red Blood Count 3.29 MIL/MM3 2.95 MIL/MM3 Hemoglobin 10.1 GM/DL 9.1 GM/DL 8.9 GM/DL Hematocrit 29.1 % 26.2 % 26.0 % Mean Corpuscular Volume 88.4 FL 88.0 FL Mean Corpuscular Hemoglobin 30.7 PG 30.1 PG Mean Corpuscular Hemoglobin Concent 34.7 % 34.2 % Red Cell Distribution Width 16.3 % 16.2 % Platelet Count 156 TH/MM3 109 TH/MM3 Mean Platelet Volume 9.4 FL 9.7 FL Neutrophils (%) (Auto) 81.0 % Lymphocytes (%) (Auto) 11.0 % Monocytes (%) (Auto) 7.6 % Eosinophils (%) (Auto) 0.3 % Basophils (%) (Auto) 0.1 % Neutrophils # (Auto) 10.7 TH/MM3 Lymphocytes # (Auto) 1.5 TH/MM3 Monocytes # (Auto) 1.0 TH/MM3 Eosinophils # (Auto) 0.0 TH/MM3 Basophils # (Auto) 0.0 TH/MM3 CBC Comment DIFF FINAL Differential Comment Blood Urea Nitrogen 18 MG/DL Creatinine 0.97 MG/DL Random Glucose 116 MG/DL Total Protein 4.7 GM/DL Albumin 2.2 GM/DL Calcium Level 7.1 MG/DL Alkaline Phosphatase 50 U/L Aspartate Amino Transf (AST/SGOT) 168 U/L Alanine Aminotransferase (ALT/SGPT) 43 U/L Total Bilirubin 0.6 MG/DL Sodium Level 142 MEQ/L Potassium Level 3.1 MEQ/L Chloride Level 111 MEQ/L Carbon Dioxide Level 25.0 MEQ/L Anion Gap 6 MEQ/L Estimat Glomerular Filtration Rate 74 ML/MIN Protein Corrected Calcium 8.4 MG/DL Assessment and Plan Problem List: (1) Cardiomyopathy ICD Codes: I42.9 - Cardiomyopathy, unspecified (2) CAD (coronary artery disease) ICD Codes: I25.10 - Atherosclerotic heart disease of in[place] coronary artery without angina pectoris (3) Hematuria ICD Codes: R31.9 - Hematuria, unspecified Status: Acute (4) Gross hematuria ICD Codes: R31.0 - Gross hematuria Status: Acute Assessment and Plan 1.) CAD - pod#2 primary pci, assymptomatic, continue aspirin, plavix, lipitor, coreg, dov held due ubstructive uopathy and hypotension, hgb stable, hematuria improving Nathanael Kelley MD Nov 15, 2017 12:36
--- NOTE | 2017-11-15 12:46 | HHI.CCPN ---
Subjective Remarks/Hospital Course 11/13: Patient is an 82-year-old male with past medical history of BPH, tobacco abuse who presented 11/12/2017 with dysuria, hematuria and urinary retention. Patient was admitted to the hospitalist service and underwent cystoscopy with fulguration by Dr. Lee. Was also placed on continuous bladder irrigation. Patient developed chest pain today a.m. EKG showed significant anterolateral ST elevation troponin bumped to 6.5 emergently taken to cardiac catheterization by Dr. Kelley. Received PCI, LAD stent,. Was loaded with 600 mg Plavix and was started on Aggrastat. Post stenting went to [facility] developed hypotension and was moved to the CVICU. Initially seen by Dr. Ryan patient had gross hematuria so O negative blood 2 units were ordered stat. I evaluated the patient in CVICU. He is persistently hypotensive receiving first 2 units of blood. Started on 1 mcg/min Levophed. Remains borderline hypotensive. Patient has significant gross hematuria, and is on CBI. He is anxious and complains about 9 out of 10 chest pain, I am starting on nitro drip. Patient may need IABP pain not resolved with nitro and Dilaudid/ Morphine. I have discussed with Dr. Kelley. 11/14: Resting comfortably in bed. Received 3 units PRBCs yesterday. Chest pain resolved currently. CBI with Amicar ongoing. Minimal pink tinged CBI fluid noted. 11/15: Resting comfortably. Denies SOB or abd pain. No chest pain currently. Objective Vital Signs Date Time Temp Pulse Resp B/P (MAP) Pulse Ox O2 Delivery O2 Flow Rate FiO2 11/15/17 11:00 98.0 82 16 94/51 (65) 98 Arterial Line 11/14/17 10:45 Nasal Cannula 2.00 Intake and Output 11/15/17 11/15/17 11/16/17 08:00 16:00 00:00 Intake Total 7200 ml Output Total 3125 ml Balance 4075 ml Result Diagram: 11/15/175 11/15/17 0445 Imaging Reviewed Objective Remarks Narrative GENERAL: Well-nourished, well-developed patient. Laying in bed not in any acute distress. SKIN: Skin assessment warm/dry. HEAD: Normocephalic. EYES: Pallor+ NECK: Supple, trachea midline. + JVD CARDIOVASCULAR: Regular rate and rhythm without murmurs, RESPIRATORY: Breath sounds equal bilaterally. No accessory muscle use. GASTROINTESTINAL: Abdomen soft, nondistended. Right inguinal hernia : CBI ongoing with clear urine on return. MUSCULOSKELETAL: No cyanosis, or edema. NEURO: Patient is awake and alert oriented, No obvious focal deficit. A/P Assessment and Plan ASSESSMENT: Hemorrhagic shock STEMI s/p LAD Stent Ongoing chest pain Gross hematuria Status post cystoscopy and fulguration PLAN: NEURO: -Morphine as needed for pain, as needed Dilaudid for breakthrough pain. RESP: -Nasal cannula oxygen -DuoNeb every 6 hours as needed -2 Amps of bicarb given for metabolic acidosis CV: -Continue maintenance IV fluids. -Levophed to keep map above 65, currently off -Off nitro drip. -On aspirin/ plavix per cardiology. -Resumed Coreg. 2-D echo with low LVEF. Consider BOBBY inhibitor. Defer to cardiology GI: -Advance by mouth as tolerated, IV Protonix : -Monitor renal function closely. Continuous bladder irrigation with Amicar per urology -Further hematuria and CBI management per Jesus ID: -On IV Cipro HEME: -Status post 3 units PRBCs on 3/2 for monica hematuria with hypotension. -Monitor CBC CMP coags fibrinogen closely -Transfuse to keep hemoglobin more than 9 ENDO: -Electrolyte replacement per protocol PROPH: -Bilateral lower extremity SCDs. Chemical DVT prophylaxis is contraindicated at this time. Continue SCDs LINES: -Utilize peripheral IVs Consult and transfer to hospitalist service for medical management. Critical care signing off, please reconsult if needed. Brandan Ryan MD Nov 15, 2017 12:45
[2017-11-15] MEDS: ONDANSETRON HCL 4 MG/2 ML VIAL IV PUSH PRN ×2 (13:21→19:24)
[2017-11-15] MEDS ORDERED: CALCIUM GLUCONATE INJ 2 GM in DEXTROSE 5% IN WATER 100ML INJ 100 ML IV ONE ×2 (14:00)
[2017-11-15] MEDS: SODIUM CHLOR 0.9% 1000 ML INJ 1,000 ML IV SCH (18:20)
[2017-11-15 22:07] LABS: CALCIUM 7.4 MG/DL (8.5-10.1)
[2017-11-15 22:22] LABS: CALCIUM-PROTEIN CORRECTED 8.6 MG/DL (8.5-10.1); TOTAL PROTEIN 4.9 GM/DL (6.4-8.2)
[2017-11-16] VITALS (11 sets, daily range): BP systolic 95–130; BP diastolic 51–72; PULSE 76–98; RESP 14–20; TEMP 97.5–98.7; O2SAT 96–99
[2017-11-16] MEDS: AMINOCAPROIC ACID INJ 3,000 MG in SODIUM CHLORIDE 0.9% IRR BAG 3,000 ML IRRIGATION SCH ×9 (00:01→07:15)
[2017-11-16] MEDS: ATORVASTATIN 10 MG TAB PO SCH ×2 (00:39→21:30)
[2017-11-16] MEDS: CARVEDILOL 3.125 MG TAB PO SCH ×3 (00:39→21:30)
[2017-11-16] MEDS: CIPROFLOXACIN 400 MG PREMIX 200 ML IV SCH ×2 (00:39→10:16)
[2017-11-16] MEDS: POTASSIUM CHLOR 20 MEQ PREMIX 100 ML IV PRN ×2 (01:06→02:03)
[2017-11-16 02:11] LABS: AUTOMATED NEUTROPHIL # 10.3 TH/MM3 (1.8-7.7); BASOPHIL % 0.1 % (0.0-2.0); EOSINOPHIL % 0.1 % (0.0-4.0); HEMATOCRIT 25.3 % (39.0-51.0); HEMOGLOBIN 8.5 GM/DL (13.0-17.0); LYMPH % 11.3 % (9.0-44.0); LYMPHOCYTE # 1.4 TH/MM3 (1.0-4.8); MEAN CELL VOLUME 90.8 FL (80.0-100.0); MEAN CORPUSCULAR HEMOGLOBIN 30.5 PG (27.0-34.0); MEAN CORPUSCULAR HGB CONC 33.6 % (32.0-36.0); MONO % 6.5 % (0.0-8.0); MONOCYTE # 0.8 TH/MM3 (0-0.9); PLATELET COUNT 116 TH/MM3 (150-450); RED BLOOD COUNT 2.79 MIL/MM3 (4.50-5.90); RED CELL DISTRIBUTION WIDTH 16.2 % (11.6-17.2); WHITE BLOOD COUNT 12.5 TH/MM3 (4.0-11.0)
[2017-11-16 02:22] LABS: ALBUMIN 2.2 GM/DL (3.4-5.0); BICARBONATE 22.4 MEQ/L (21.0-32.0); CALCIUM 7.3 MG/DL (8.5-10.1); CALCIUM-PROTEIN CORRECTED 8.5 MG/DL (8.5-10.1); CREATININE 0.99 MG/DL (0.60-1.30); TOTAL BILIRUBIN ADULT 0.5 MG/DL (0.2-1.0); TOTAL PROTEIN 4.9 GM/DL (6.4-8.2)
[2017-11-16] MEDS: SODIUM CHLOR 0.9% 1000 ML INJ 1,000 ML IV SCH ×2 (10:16→23:46)
[2017-11-16] MEDS: CLOPIDOGREL 75 MG TAB PO SCH (10:16)
[2017-11-16] MEDS: TAMSULOSIN HCL 0.4 MG CAP PO SCH (10:16)
[2017-11-16] MEDS: ASPIRIN 81 MG CHEW TAB PO SCH (10:17)
[2017-11-16] MEDS: SODIUM CHLORIDE 0.9% FLUSH 10 ML FLUSH IV FLUSH SCH ×2 (10:17→21:00)
[2017-11-16] MEDS ORDERED: oxyCODONE/ACETAMINOPHEN 5 MG/325 MG TAB PO ONE (10:30)
[2017-11-16] MEDS ORDERED: oxyCODONE/ACETAMINOPHEN 5 MG/325 MG TAB PO PRN (10:30)
--- NOTE | 2017-11-16 10:43 | HHI.PR ---
Subjective Remarks The patient was resting comfortably in bed. He complained of pain at the site of his Ma catheter. He wanted to know where his son was. He said he has not been eating well lately. He said he has been throwing up. Discussed with nursing. Objective Vitals Vital Signs Date Time Temp Pulse Resp B/P (MAP) Pulse Ox O2 Delivery O2 Flow Rate FiO2 11/16/17 07:46 94 11/16/17 07:46 98.7 94 20 130/72 (91) 99 11/16/17 07:22 99 21 11/16/17 03:00 88 11/16/17 03:00 98.4 88 20 109/51 (70) 98 11/15/17 23:00 98.6 90 18 110/57 (74) 97 11/15/17 23:00 90 11/15/17 19:00 98.7 79 18 97/52 (67) 98 11/15/17 19:00 79 11/15/17 18:08 94 21 11/15/17 15:00 97.4 76 14 112/60 (77) 93 11/15/17 15:00 76 11/15/17 11:00 98.0 82 16 94/51 (65) 98 Arterial Line 11/15/17 11:00 82 I/O 11/15/17 11/15/17 11/15/17 11/16/17 11/16/17 11/16/17 07:00 15:00 23:00 07:00 15:00 23:00 Intake Total 7200 ml 1593 ml 200 ml Output Total 3125 ml 1925 ml 39649 ml Balance 4075 ml -332 ml -29862 ml Intake Oral 200 ml 480 ml 200 ml IV Total 7000 ml 1113 ml Output Urine Total 3125 ml 1750 ml 89648 ml Emesis 175 ml 200 ml # Bowel Movements 1 0 Result Diagram: 11/16/17 0141 11/16/17 0141 Imaging Last Impressions Chest X-Ray 11/14/17 0650 Signed Impressions: Service Date/Time: Tuesday, November 14, 2017 07:29 - CONCLUSION: Normal examination. Sudarshan Espino MD Abdomen/Pelvis CT 11/10/17 1210 Signed Impressions: Service Date/Time: Friday, November 10, 2017 12:47 - CONCLUSION: 1. Radiopaque material within the urinary bladder likely hematoma. Underlying mass cannot be excluded. 2. Mild wall thickening of the urinary bladder. 3. Enlarged prostate. 4. Right inguinal hernia containing small bowel loops without obstruction. 5. Diverticulosis without diverticulitis. 6. Small hiatal hernia. Mark Fitch MD Objective Remarks GENERAL: No distress. SKIN: Skin assessment warm/dry. HEAD: Normocephalic. NECK: Supple, trachea midline. + JVD. CARDIOVASCULAR: Regular rate and rhythm without murmurs. RESPIRATORY: Breath sounds equal bilaterally. No accessory muscle use. GASTROINTESTINAL: Abdomen soft, nondistended. Right inguinal hernia. + BS. : CBI ongoing with gregoria urine. MUSCULOSKELETAL: No cyanosis, or edema. NEURO: Patient is awake and alert oriented, No obvious focal deficit. PSYCH: Mood and affect appropriate. Procedures Catheterization Medications and IVs Current Medications Medications (Trade) Dose Ordered Sig/Micheal Route Start Time Stop Time Status Last Admin (Narcan Inj) 0.4 mg UNSCH PRN IV PUSH 11/10/17 14:15 (Flomax) 0.4 mg DAILY PO 11/11/17 09:00 11/14/17 09:15 (Catapres) 0.1 mg Q6H PRN PO 11/10/17 18:15 11/11/17 20:52 Ciprofloxacin/ Dextrose 200 ml @ 200 mls/hr Q12H IV 11/10/17 21:00 11/16/17 00:39 (Morphine Inj) 2 mg Q4H PRN IV PUSH 11/13/17 13:30 11/13/17 18:55 Aminocaproic Acid 3000 mg/Sodium Chloride 3,012 ml @ 0 mls/hr UNSCH IRRIGATION 11/13/17 14:15 11/16/17 07:15 (NS Flush) 2 ml UNSCH PRN IV FLUSH 11/13/17 16:45 (NS Flush) 2 ml BID IV FLUSH 11/13/17 21:00 11/15/17 21:00 (Aspirin Chew) 162 mg DAILY PO 11/14/17 09:00 11/15/17 09:26 (Plavix) 75 mg DAILY PO 11/14/17 09:00 11/15/17 09:26 (Coreg) 3.125 mg BID PO 11/13/17 21:00 11/16/17 00:39 (Lipitor) 10 mg HS PO 11/13/17 21:00 11/16/17 00:39 Sodium Chloride 1,000 ml @ 75 mls/hr [id number] IV 11/13/17 17:30 11/15/17 18:20 Dexmedetomidine HCl 200 mcg/ Sodium Chloride 52 ml @ 3.53 mls/hr TITRATE PRN IV 11/13/17 19:15 Nitroglycerin/ Dextrose 250 ml @ 1.5 mls/hr TITRATE PRN IV 11/13/17 19:30 11/13/17 19:30 (Zofran Inj) 4 mg Q6HR PRN IV PUSH 11/13/17 19:30 11/15/17 19:24 Norepinephrine Bitartrate 250 ml @ 7.5 mls/hr TITRATE PRN IV 11/13/17 20:00 11/13/17 19:00 Potassium Chloride 100 ml @ 50 mls/hr Q2H PRN IV 11/14/17 11:45 Potassium Chloride 100 ml @ 50 mls/hr Q2H PRN IV 11/14/17 11:45 11/15/17 06:45 Potassium Chloride 100 ml @ 25 mls/hr UNSCH PRN IV 11/14/17 11:45 Potassium Chloride 100 ml @ 50 mls/hr Q2H PRN IV 11/14/17 11:45 11/16/17 02:03 Magnesium Sulfate 4 gm/Sodium Chloride 100 ml @ 50 mls/hr UNSCH PRN IV 11/14/17 11:45 (Mag-Ox) 800 mg UNSCH PRN PO 11/14/17 11:45 Magnesium Sulfate 2 gm/Sodium Chloride 100 ml @ 50 mls/hr UNSCH PRN IV 11/14/17 11:45 (K-Phos) 2,000 mg Q4H PRN PO 11/14/17 11:45 Sodium Phosphate 30 mmol/Sodium Chloride 250 ml @ 42 mls/hr UNSCH PRN IV 11/14/17 11:45 (K-Phos) 2,000 mg UNSCH PRN PO/TUBE 11/14/17 11:45 Potassium Phosphate 30 mmol/ Sodium Chloride 260 ml @ 42 mls/hr UNSCH PRN IV 11/14/17 11:45 Aminocaproic Acid 1000 mg/Sodium Chloride 1,004 ml @ 0 mls/hr UNSCH IRRIGATION 11/14/17 17:00 Future hold A/P Assessment and Plan STEMI S/p catheterization 11/13 with stent placement. 2-D echo with low LVEF. Off nitro drip. S/p Levophed. -On aspirin/ Plavix per cardiology. Resumed Coreg. - telemetry. - oxygen and nebs as needed. - PT/ OT. Hematuria Urology consult appreciated. Status post cystoscopy and fulguration. Status post 3 units PRBCs on 11/13 for monica hematuria with hypotension. Urine culture negative. - Continuous bladder irrigation with Amicar per urology. - follow CBC and transfuse as needed. - continue Flomax. - d/c Cipro. N/V Possibly s/t STEMI. LFTs improving. Recent CT scan without obvious cause. - ADAT. - antiemetics as needed. - check lipase level. Leukocytosis Likely a stress reaction. Afebrile. Recent CXR unremarkable. Urine culture with no significant growth. - follow CBC. PROPH: Bilateral lower extremity SCDs Discharge Planning Will need to tolerate diet, needs urology and cardiology clearance. Ravinder Munoz DO Nov 16, 2017 10:43
--- NOTE | 2017-11-16 10:55 | HHI.PR ---
Subjective Patient symptoms today Pt seen and examined. No CP. Hematuria has resolved. Objective Vital Signs Vital Signs Date Time Temp Pulse Resp B/P (MAP) Pulse Ox O2 Delivery O2 Flow Rate FiO2 11/16/17 07:46 94 11/16/17 07:46 98.7 94 20 130/72 (91) 99 11/16/17 07:22 99 21 11/16/17 03:00 88 11/16/17 03:00 98.4 88 20 109/51 (70) 98 11/15/17 23:00 98.6 90 18 110/57 (74) 97 11/15/17 23:00 90 11/15/17 19:00 98.7 79 18 97/52 (67) 98 11/15/17 19:00 79 11/15/17 18:08 94 21 11/15/17 15:00 97.4 76 14 112/60 (77) 93 11/15/17 15:00 76 11/15/17 11:00 98.0 82 16 94/51 (65) 98 Arterial Line 11/15/17 11:00 82 Intake & Output 11/16/17 11/16/17 07:00 19:00 Intake Total 200 ml Output Total 09107 ml Balance -02449 ml Intake Oral 200 ml Output Urine Total 44576 ml Emesis 200 ml # Bowel Movements 0 Result Diagram: 11/16/17 0141 11/16/17 0141 Objective Remarks Abd:soft,nt,nd Hernández: few clots irrigated; now clear 11/13/17 Abd:soft,nt,nd Hernández: irrigated to clear at bedside. 11/14 Abd:soft,nt,nd Hernández: gross hematuria on Amicar CBI 11/15 Abd:soft,nt,nd Hernández: gross hematuria is now clear on Amicar CBI; will titrate down 11/16 Abd:soft,nt,nd Hernández: clear urine Medications and IVs Current Medications Medications (Trade) Dose Ordered Sig/Micheal Route Start Time Stop Time Status Last Admin (Narcan Inj) 0.4 mg UNSCH PRN IV PUSH 11/10/17 14:15 (Flomax) 0.4 mg DAILY PO 11/11/17 09:00 11/16/17 10:16 (Catapres) 0.1 mg Q6H PRN PO 11/10/17 18:15 11/11/17 20:52 Aminocaproic Acid 3000 mg/Sodium Chloride 3,012 ml @ 0 mls/hr UNSCH IRRIGATION 11/13/17 14:15 11/16/17 07:15 (NS Flush) 2 ml UNSCH PRN IV FLUSH 11/13/17 16:45 (NS Flush) 2 ml BID IV FLUSH 11/13/17 21:00 11/16/17 10:17 (Aspirin Chew) 162 mg DAILY PO 11/14/17 09:00 11/16/17 10:17 (Plavix) 75 mg DAILY PO 11/14/17 09:00 11/16/17 10:16 (Coreg) 3.125 mg BID PO 11/13/17 21:00 11/16/17 10:17 (Lipitor) 10 mg HS PO 11/13/17 21:00 11/16/17 00:39 Sodium Chloride 1,000 ml @ 75 mls/hr [id number] IV 11/13/17 17:30 11/16/17 10:16 Dexmedetomidine HCl 200 mcg/ Sodium Chloride 52 ml @ 3.53 mls/hr TITRATE PRN IV 11/13/17 19:15 Nitroglycerin/ Dextrose 250 ml @ 1.5 mls/hr TITRATE PRN IV 11/13/17 19:30 11/13/17 19:30 (Zofran Inj) 4 mg Q6HR PRN IV PUSH 11/13/17 19:30 11/15/17 19:24 Norepinephrine Bitartrate 250 ml @ 7.5 mls/hr TITRATE PRN IV 11/13/17 20:00 11/13/17 19:00 Potassium Chloride 100 ml @ 50 mls/hr Q2H PRN IV 11/14/17 11:45 Potassium Chloride 100 ml @ 50 mls/hr Q2H PRN IV 11/14/17 11:45 11/15/17 06:45 Potassium Chloride 100 ml @ 25 mls/hr UNSCH PRN IV 11/14/17 11:45 Potassium Chloride 100 ml @ 50 mls/hr Q2H PRN IV 11/14/17 11:45 11/16/17 02:03 Magnesium Sulfate 4 gm/Sodium Chloride 100 ml @ 50 mls/hr UNSCH PRN IV 11/14/17 11:45 (Mag-Ox) 800 mg UNSCH PRN PO 11/14/17 11:45 Magnesium Sulfate 2 gm/Sodium Chloride 100 ml @ 50 mls/hr UNSCH PRN IV 11/14/17 11:45 (K-Phos) 2,000 mg Q4H PRN PO 11/14/17 11:45 Sodium Phosphate 30 mmol/Sodium Chloride 250 ml @ 42 mls/hr UNSCH PRN IV 11/14/17 11:45 (K-Phos) 2,000 mg UNSCH PRN PO/TUBE 11/14/17 11:45 Potassium Phosphate 30 mmol/ Sodium Chloride 260 ml @ 42 mls/hr UNSCH PRN IV 11/14/17 11:45 Aminocaproic Acid 1000 mg/Sodium Chloride 1,004 ml @ 0 mls/hr UNSCH IRRIGATION 11/14/17 17:00 Future hold (Percocet 5-325 Mg) 1 tab ONCE ONCE PO 11/16/17 10:30 11/16/17 10:31 UNV (Percocet 5-325 Mg) 1 tab Q4H PRN PO 11/16/17 10:30 UNV Assessment and Plan Assessment and Plan 82 y.o male with gross hematuria Hematuria clears with manual irrigation Irrigate hernández Q 2 hours If persists, will need cysto. If clears can be discharged with hernández in place and perform void trial next week. 11/13/17 82 y.o male with gross hematuria s/p cysto with fulguration Hernández irrigated to clear this AM If urine remains clear can d/c home with hernández this afternoon and f/u next Wed. AM for void trial in office. 11/14 82 y.o male s/p NSTEMI yesterday s/p cardiac stent on Plavix with h/o prostatic bleeding s/p cysto/fulguration Will need to continue Amicar CBI Irrigate hernández prn clots Follow Hgb Creatinine improved. 11/15 82 y.o male s/p NSTEMI with h/o prostatic bleeding Slowly titrate down the Amicar Follow Hgb Continue Plavix 11/16 82 y.o male s/p NSTEMI with h/o prostatic bleeding Hematuria resolving Titrate Amicar drip to off as urine remains clear. Rafita Lee DO Nov 16, 2017 10:55
--- NOTE | 2017-11-16 20:05 | PD.CARD.PN ---
Subjective Subjective Remarks alert in nad, denies chest pain or dyspnea Objective Medications Current Medications Medications (Trade) Dose Ordered Sig/Imcheal Route Start Time Stop Time Status Last Admin (Narcan Inj) 0.4 mg UNSCH PRN IV PUSH 11/10/17 14:15 (Flomax) 0.4 mg DAILY PO 11/11/17 09:00 11/16/17 10:16 (Catapres) 0.1 mg Q6H PRN PO 11/10/17 18:15 11/11/17 20:52 Aminocaproic Acid 3000 mg/Sodium Chloride 3,012 ml @ 0 mls/hr UNSCH IRRIGATION 11/13/17 14:15 11/16/17 07:15 (NS Flush) 2 ml UNSCH PRN IV FLUSH 11/13/17 16:45 (NS Flush) 2 ml BID IV FLUSH 11/13/17 21:00 11/16/17 10:17 (Aspirin Chew) 162 mg DAILY PO 11/14/17 09:00 11/16/17 10:17 (Plavix) 75 mg DAILY PO 11/14/17 09:00 11/16/17 10:16 (Coreg) 3.125 mg BID PO 11/13/17 21:00 11/16/17 10:17 (Lipitor) 10 mg HS PO 11/13/17 21:00 11/16/17 00:39 Sodium Chloride 1,000 ml @ 75 mls/hr [id number] IV 11/13/17 17:30 11/16/17 10:16 Dexmedetomidine HCl 200 mcg/ Sodium Chloride 52 ml @ 3.53 mls/hr TITRATE PRN IV 11/13/17 19:15 Nitroglycerin/ Dextrose 250 ml @ 1.5 mls/hr TITRATE PRN IV 11/13/17 19:30 11/13/17 19:30 (Zofran Inj) 4 mg Q6HR PRN IV PUSH 11/13/17 19:30 11/15/17 19:24 Norepinephrine Bitartrate 250 ml @ 7.5 mls/hr TITRATE PRN IV 11/13/17 20:00 11/13/17 19:00 Potassium Chloride 100 ml @ 50 mls/hr Q2H PRN IV 11/14/17 11:45 Potassium Chloride 100 ml @ 50 mls/hr Q2H PRN IV 11/14/17 11:45 11/15/17 06:45 Potassium Chloride 100 ml @ 25 mls/hr UNSCH PRN IV 11/14/17 11:45 Potassium Chloride 100 ml @ 50 mls/hr Q2H PRN IV 11/14/17 11:45 11/16/17 02:03 Magnesium Sulfate 4 gm/Sodium Chloride 100 ml @ 50 mls/hr UNSCH PRN IV 11/14/17 11:45 (Mag-Ox) 800 mg UNSCH PRN PO 11/14/17 11:45 Magnesium Sulfate 2 gm/Sodium Chloride 100 ml @ 50 mls/hr UNSCH PRN IV 11/14/17 11:45 (K-Phos) 2,000 mg Q4H PRN PO 11/14/17 11:45 Sodium Phosphate 30 mmol/Sodium Chloride 250 ml @ 42 mls/hr UNSCH PRN IV 11/14/17 11:45 (K-Phos) 2,000 mg UNSCH PRN PO/TUBE 11/14/17 11:45 Potassium Phosphate 30 mmol/ Sodium Chloride 260 ml @ 42 mls/hr UNSCH PRN IV 11/14/17 11:45 Aminocaproic Acid 1000 mg/Sodium Chloride 1,004 ml @ 0 mls/hr UNSCH IRRIGATION 11/14/17 17:00 Future hold (Percocet 5-325 Mg) 1 tab Q4H PRN PO 11/16/17 10:30 Vital Signs / I&O Vital Signs Date Time Temp Pulse Resp B/P (MAP) Pulse Ox O2 Delivery O2 Flow Rate FiO2 11/16/17 15:00 78 11/16/17 15:00 98.0 78 16 99/56 (70) 98 11/16/17 13:00 80 11/16/17 12:00 80 11/16/17 11:00 98.6 98 16 105/55 (72) 99 11/16/17 11:00 80 11/16/17 10:00 80 11/16/17 09:30 98.4 80 14 112/56 (74) 99 11/16/17 07:46 94 11/16/17 07:46 98.7 94 20 130/72 (91) 99 11/16/17 07:22 99 21 11/16/17 03:00 88 11/16/17 03:00 98.4 88 20 109/51 (70) 98 11/15/17 23:00 98.6 90 18 110/57 (74) 97 11/15/17 23:00 90 I/O 11/15/17 11/15/17 11/15/17 11/16/17 11/16/17 11/16/17 07:00 15:00 23:00 07:00 15:00 23:00 Intake Total 7200 ml 1593 ml 200 ml 480 ml Output Total 3125 ml 1925 ml 35311 ml 1075 ml Balance 4075 ml -332 ml -22308 ml -595 ml Intake Oral 200 ml 480 ml 200 ml 480 ml IV Total 7000 ml 1113 ml Output Urine Total 3125 ml 1750 ml 90561 ml 1075 ml Emesis 175 ml 200 ml # Bowel Movements 1 0 Physical Exam GENERAL: SKIN: Warm and dry. HEAD: Normocephalic. EYES: No scleral icterus. No injection or drainage. NECK: Supple, trachea midline. No JVD or lymphadenopathy. CARDIOVASCULAR: Regular rate and rhythm without murmurs, gallops, or rubs. RESPIRATORY: Breath sounds equal bilaterally. No accessory muscle use. GASTROINTESTINAL: Abdomen soft, non-tender, nondistended. MUSCULOSKELETAL: No cyanosis, or edema. BACK: Nontender without obvious deformity. No CVA tenderness. Laboratory Laboratory Tests Test 11/15/17 21:08 11/16/17 01:41 Potassium Level 3.4 MEQ/L 3.7 MEQ/L Calcium Level 7.4 MG/DL 7.3 MG/DL Protein Corrected Calcium 8.6 MG/DL 8.5 MG/DL Total Protein 4.9 GM/DL 4.9 GM/DL White Blood Count 12.5 TH/MM3 Red Blood Count 2.79 MIL/MM3 Hemoglobin 8.5 GM/DL Hematocrit 25.3 % Mean Corpuscular Volume 90.8 FL Mean Corpuscular Hemoglobin 30.5 PG Mean Corpuscular Hemoglobin Concent 33.6 % Red Cell Distribution Width 16.2 % Platelet Count 116 TH/MM3 Mean Platelet Volume 10.0 FL Neutrophils (%) (Auto) 82.0 % Lymphocytes (%) (Auto) 11.3 % Monocytes (%) (Auto) 6.5 % Eosinophils (%) (Auto) 0.1 % Basophils (%) (Auto) 0.1 % Neutrophils # (Auto) 10.3 TH/MM3 Lymphocytes # (Auto) 1.4 TH/MM3 Monocytes # (Auto) 0.8 TH/MM3 Eosinophils # (Auto) 0.0 TH/MM3 Basophils # (Auto) 0.0 TH/MM3 CBC Comment DIFF FINAL Differential Comment Blood Urea Nitrogen 17 MG/DL Creatinine 0.99 MG/DL Random Glucose 141 MG/DL Albumin 2.2 GM/DL Alkaline Phosphatase 51 U/L Aspartate Amino Transf (AST/SGOT) 108 U/L Alanine Aminotransferase (ALT/SGPT) 36 U/L Total Bilirubin 0.5 MG/DL Sodium Level 141 MEQ/L Chloride Level 111 MEQ/L Carbon Dioxide Level 22.4 MEQ/L Anion Gap 8 MEQ/L Estimat Glomerular Filtration Rate 72 ML/MIN Lipase 57 U/L Assessment and Plan Problem List: (1) Cardiomyopathy ICD Codes: I42.9 - Cardiomyopathy, unspecified (2) CAD (coronary artery disease) ICD Codes: I25.10 - Atherosclerotic heart disease of [place] coronary artery without angina pectoris (3) Hematuria ICD Codes: R31.9 - Hematuria, unspecified Status: Acute (4) Gross hematuria ICD Codes: R31.0 - Gross hematuria Status: Acute Assessment and Plan 1.) CAD - pod# 3 primary pci, assymptomatic, continue aspirin, plavix, lipitor, coreg, dov held due ubstructive uopathy and hypotension, hgb stable, hematuria improving Nathanael Kelley MD Nov 16, 2017 20:05
[2017-11-16 22:39] LABS: BILIRUBIN, URINE NEG (NEG); BLOOD, URINE MOD (NEG); GLUCOSE,URINE NEG (NEG); KETONE, URINE NEG (NEG); MUCUS URINE FEW /lpf (OCC); NITRITE,URINE NEG (NEG); PH, URINE 5.5 (5.0-8.5); URINE COLOR LIGHT-YELLOW (YELLW/STRAW); URINE LEUKOCYTE ESTERASE NEG (NEG)
[2017-11-17] VITALS (26 sets, daily range): BP systolic 94–131; BP diastolic 50–70; PULSE 62–95; RESP 17–24; TEMP 97.4–99.1; O2SAT 95–100
[2017-11-17] MEDS ORDERED: AMIODARONE HCL 150 MG/3 ML VIAL IV ONE (05:00)
[2017-11-17] MEDS ORDERED: LIDOCAINE HCL 2% 100 MG/5 ML SYRINGE IV PUSH ONE (05:00)
[2017-11-17] MEDS ORDERED: MAGNESIUM SULFATE 40 MEQ/10 ML VIAL IV ONE (05:00)
[2017-11-17 05:09] LABS: MEAN CELL VOLUME 90.6 FL (80.0-100.0); MEAN CORPUSCULAR HGB CONC 34.2 % (32.0-36.0); PLATELET COUNT 129 TH/MM3 (150-450); RED BLOOD COUNT 2.15 MIL/MM3 (4.50-5.90); RED CELL DISTRIBUTION WIDTH 16.2 % (11.6-17.2); WHITE BLOOD COUNT 9.9 TH/MM3 (4.0-11.0)
[2017-11-17 05:18] LABS: HEMATOCRIT 19.5 % (39.0-51.0); HEMOGLOBIN 6.7 GM/DL (13.0-17.0)
[2017-11-17 05:36] LABS: BICARBONATE 24.2 MEQ/L (21.0-32.0); DIRECT BILIRUBIN ADULT 0.1 MG/DL (0.0-0.2); INDIRECT BILIRUBIN 0.3 MG/DL (0.0-0.8); MAGNESIUM 1.8 MG/DL (1.5-2.5); TOTAL BILIRUBIN ADULT 0.4 MG/DL (0.2-1.0); TOTAL PROTEIN 4.7 GM/DL (6.4-8.2)
[2017-11-17] MEDS ORDERED: FUROSEMIDE 20 MG/2 ML VIAL IV PUSH ONE (05:45)
[2017-11-17] MEDS ORDERED: SODIUM CHLOR 0.9% 250 ML INJ 250 ML IV ONE (05:45)
[2017-11-17 05:53] LABS: CALCIUM-PROTEIN CORRECTED 8.7 MG/DL (8.5-10.1)
[2017-11-17] MEDS: ONDANSETRON HCL 4 MG/2 ML VIAL IV PUSH PRN ×2 (05:56→23:20)
--- NOTE | 2017-11-17 08:27 | HHI.PR ---
Subjective Remarks seen with family at bedside- Maltese speaking feels weak + constantly nauseated overnight , complains of abdominal fullness/"bloated"- + lower abdominal discomfort no BM for 5 days, daughter noted patient burping a lot, states + flatus poor po appetite- nausea when he eats, states vomited once Objective Vitals Vital Signs Date Time Temp Pulse Resp B/P (MAP) Pulse Ox O2 Delivery O2 Flow Rate FiO2 11/17/17 07:56 98.1 74 19 116/56 (76) 98 11/17/17 03:33 80 11/17/17 03:25 99.1 95 17 105/51 (69) 96 11/17/17 00:18 96 21 11/16/17 23:36 80 11/16/17 23:36 97.8 86 16 95/53 (67) 99 11/16/17 19:20 76 11/16/17 19:20 97.5 77 18 116/58 (77) 96 11/16/17 15:00 78 11/16/17 15:00 98.0 78 16 99/56 (70) 98 11/16/17 13:00 80 11/16/17 12:00 80 11/16/17 11:00 98.6 98 16 105/55 (72) 99 11/16/17 11:00 80 11/16/17 10:00 80 11/16/17 09:30 98.4 80 14 112/56 (74) 99 I/O 11/16/17 11/16/17 11/16/17 11/17/17 11/17/17 11/17/17 07:00 15:00 23:00 07:00 15:00 23:00 Intake Total 200 ml 480 ml 480 ml Output Total 16775 ml 1075 ml 5850 ml Balance -43147 ml -595 ml -5370 ml Intake Oral 200 ml 480 ml 480 ml Output Urine Total 94246 ml 1075 ml 5850 ml Emesis 200 ml # Bowel Movements 0 0 Result Diagram: 11/17/17 0420 11/17/17 0420 Imaging Last Impressions Chest X-Ray 11/14/17 0650 Signed Impressions: Service Date/Time: Tuesday, November 14, 2017 07:29 - CONCLUSION: Normal examination. Sudarshan Espino MD Abdomen/Pelvis CT 11/10/17 1210 Signed Impressions: Service Date/Time: Friday, November 10, 2017 12:47 - CONCLUSION: 1. Radiopaque material within the urinary bladder likely hematoma. Underlying mass cannot be excluded. 2. Mild wall thickening of the urinary bladder. 3. Enlarged prostate. 4. Right inguinal hernia containing small bowel loops without obstruction. 5. Diverticulosis without diverticulitis. 6. Small hiatal hernia. Mark Fitch MD Objective Remarks awake and alert, no acute distress anicteric no nuhcal rigidity lungs- no rales regular rhythm abdomen- slightly distended but soft, no guarding or rigidity, slight fullness on right inguinal area rectal exam- tight sphincter tone, + enlarged prostate, vault empty, no stools on withdrawal of examining finger Procedures Catheterization Urinary Catheter: Yes Assessment to: Continue Ma insert reason: Obstruction/Retention A/P Assessment and Plan 82 years old male STEMI S/p catheterization 11/13 with stent placement. 2-D echo with low LVEF. Off nitro drip. S/p Levophed. -On aspirin/ Plavix per cardiology.On Coreg. - telemetry. - oxygen and nebs as needed. - PT/ OT. Acute Anemia - - at bedside Hematuria- resolved - look for other etio ? GI Urology consult appreciated. Status post cystoscopy and fulguration. Status post 3 units PRBCs on 11/13 for monica hematuria with hypotension. Urine culture negative. - stat repeat CBC . transfuse 2 units RBC if hemoglobin dropped - continue Flomax. - monitor H and H closely on Plavix- recent PCI N/V/abdominal pain - Ileus r/o obstruction Right inguinal hernia- small- not incarcerated clinically - stat KUB now- film reviewed- ileus- no obstruction, + stools - antiemetics- prn IV - start PPI IV - Zofran IV prn - GI consult- no BM for 5 days ? colonoscopy - Keep NPO till eval by GI Leukocytosis Likely a stress reaction. Afebrile. Recent CXR unremarkable. Urine culture with no significant growth. - follow CBC. Poor po appetite- - dietitian consult PROPH: Bilateral lower extremity SCDs ADD: repeat hgb/hct dropped give 2 units RBC now Birgit Hernandez MD Nov 17, 2017 08:27
--- NOTE | 2017-11-17 08:56 | HHI.PR ---
Subjective Patient symptoms today Pt seen and examined. Feels ok. Urine is clear. Hgb dropped from 8.5 to 6.7 overnight. Will repeat stat this AM. Objective Vital Signs Vital Signs Date Time Temp Pulse Resp B/P (MAP) Pulse Ox O2 Delivery O2 Flow Rate FiO2 11/17/17 07:56 98.1 74 19 116/56 (76) 98 11/17/17 03:33 80 11/17/17 03:25 99.1 95 17 105/51 (69) 96 11/17/17 00:18 96 21 11/16/17 23:36 80 11/16/17 23:36 97.8 86 16 95/53 (67) 99 11/16/17 19:20 76 11/16/17 19:20 97.5 77 18 116/58 (77) 96 11/16/17 15:00 78 11/16/17 15:00 98.0 78 16 99/56 (70) 98 11/16/17 13:00 80 11/16/17 12:00 80 11/16/17 11:00 98.6 98 16 105/55 (72) 99 11/16/17 11:00 80 11/16/17 10:00 80 11/16/17 09:30 98.4 80 14 112/56 (74) 99 Intake & Output 11/17/17 11/17/17 07:00 19:00 Intake Total 480 ml Output Total 5850 ml Balance -5370 ml Intake Oral 480 ml Output Urine Total 5850 ml # Bowel Movements 0 Result Diagram: 11/17/17 0420 11/17/17 0420 Objective Remarks Abd:soft,nt,nd Hernández: few clots irrigated; now clear 11/13/17 Abd:soft,nt,nd Hernández: irrigated to clear at bedside. 11/14 Abd:soft,nt,nd Hernández: gross hematuria on Amicar CBI 11/15 Abd:soft,nt,nd Hernández: gross hematuria is now clear on Amicar CBI; will titrate down 11/16 Abd:soft,nt,nd Hernández: clear urine 11/17 Abd:soft,nt,nd Hernández: urine clear Titrate CBI to off Medications and IVs Current Medications Medications (Trade) Dose Ordered Sig/Micheal Route Start Time Stop Time Status Last Admin (Narcan Inj) 0.4 mg UNSCH PRN IV PUSH 11/10/17 14:15 (Flomax) 0.4 mg DAILY PO 11/11/17 09:00 11/16/17 10:16 (Catapres) 0.1 mg Q6H PRN PO 11/10/17 18:15 11/11/17 20:52 Aminocaproic Acid 3000 mg/Sodium Chloride 3,012 ml @ 0 mls/hr UNSCH IRRIGATION 11/13/17 14:15 11/16/17 07:15 (NS Flush) 2 ml UNSCH PRN IV FLUSH 11/13/17 16:45 (NS Flush) 2 ml BID IV FLUSH 11/13/17 21:00 11/16/17 21:00 (Aspirin Chew) 162 mg DAILY PO 11/14/17 09:00 11/16/17 10:17 (Plavix) 75 mg DAILY PO 11/14/17 09:00 11/16/17 10:16 (Coreg) 3.125 mg BID PO 11/13/17 21:00 11/16/17 21:30 (Lipitor) 10 mg HS PO 11/13/17 21:00 11/16/17 21:30 Sodium Chloride 1,000 ml @ 75 mls/hr [id number] IV 11/13/17 17:30 11/16/17 23:46 Dexmedetomidine HCl 200 mcg/ Sodium Chloride 52 ml @ 3.53 mls/hr TITRATE PRN IV 11/13/17 19:15 Nitroglycerin/ Dextrose 250 ml @ 1.5 mls/hr TITRATE PRN IV 11/13/17 19:30 11/13/17 19:30 (Zofran Inj) 4 mg Q6HR PRN IV PUSH 11/13/17 19:30 11/17/17 05:56 Norepinephrine Bitartrate 250 ml @ 7.5 mls/hr TITRATE PRN IV 11/13/17 20:00 11/13/17 19:00 Potassium Chloride 100 ml @ 50 mls/hr Q2H PRN IV 11/14/17 11:45 Potassium Chloride 100 ml @ 50 mls/hr Q2H PRN IV 11/14/17 11:45 11/15/17 06:45 Potassium Chloride 100 ml @ 25 mls/hr UNSCH PRN IV 11/14/17 11:45 Potassium Chloride 100 ml @ 50 mls/hr Q2H PRN IV 11/14/17 11:45 11/16/17 02:03 Magnesium Sulfate 4 gm/Sodium Chloride 100 ml @ 50 mls/hr UNSCH PRN IV 11/14/17 11:45 (Mag-Ox) 800 mg UNSCH PRN PO 11/14/17 11:45 Magnesium Sulfate 2 gm/Sodium Chloride 100 ml @ 50 mls/hr UNSCH PRN IV 11/14/17 11:45 (K-Phos) 2,000 mg Q4H PRN PO 11/14/17 11:45 Sodium Phosphate 30 mmol/Sodium Chloride 250 ml @ 42 mls/hr UNSCH PRN IV 11/14/17 11:45 (K-Phos) 2,000 mg UNSCH PRN PO/TUBE 11/14/17 11:45 Potassium Phosphate 30 mmol/ Sodium Chloride 260 ml @ 42 mls/hr UNSCH PRN IV 11/14/17 11:45 Aminocaproic Acid 1000 mg/Sodium Chloride 1,004 ml @ 0 mls/hr UNSCH IRRIGATION 11/14/17 17:00 Future hold (Percocet 5-325 Mg) 1 tab Q4H PRN PO 11/16/17 10:30 Sodium Chloride 250 ml @ 15 mls/hr ONCE ONCE IV 11/17/17 05:45 11/17/17 22:24 Assessment and Plan Assessment and Plan 82 y.o male with gross hematuria Hematuria clears with manual irrigation Irrigate hernández Q 2 hours If persists, will need cysto. If clears can be discharged with hernández in place and perform void trial next week. 11/13/17 82 y.o male with gross hematuria s/p cysto with fulguration Hernández irrigated to clear this AM If urine remains clear can d/c home with hernández this afternoon and f/u next Thu. AM for void trial in office. 11/14 82 y.o male s/p NSTEMI yesterday s/p cardiac stent on Plavix with h/o prostatic bleeding s/p cysto/fulguration Will need to continue Amicar CBI Irrigate hernández prn clots Follow Hgb Creatinine improved. 11/15 82 y.o male s/p NSTEMI with h/o prostatic bleeding Slowly titrate down the Amicar Follow Hgb Continue Plavix 11/16 82 y.o male s/p NSTEMI with h/o prostatic bleeding Hematuria resolving Titrate Amicar drip to off as urine remains clear. 11/17 82 y.o male s/p NSTEMI with h/o prostatic bleeding Hgb dropped overnight from 8.5 to 6.7. Will repeat H/H stat If true, transfuse 2 units Guiac stools Rafita Lee DO Nov 17, 2017 08:56
[2017-11-17] MEDS: SODIUM CHLORIDE 0.9% FLUSH 10 ML FLUSH IV FLUSH SCH ×2 (09:00→20:56)
--- NOTE | 2017-11-17 09:07 | RADRPT ---
EXAM DATE/TIME: 11/17/2017 08:42 [facility] COMPARISON: No previous studies available for comparison. INDICATIONS : Nausea. Abdominal pain. MEDICAL HISTORY : Hypertension. SURGICAL HISTORY : Prostatectomy. ENCOUNTER: Initial ACUITY: 1 day PAIN SCORE: 2/10 LOCATION: Bilateral lower quadrant abdomen FINDINGS: Supine view of the abdomen was performed. The abdominal bowel gas pattern is nonspecific. There is s tool in the colon which is nondilated. There are some air-filled loops of small bowel which are upper limits of normal.. No abnormal masses, calcifications, or organomegaly is seen. The osseous struct ures are unremarkable. The lung bases are grossly clear. CONCLUSION: Nonspecific bowel gas pattern with stool in the colon. No evidence to suggest mechanical obstruction. Amador Leiva MD on November 17, 2017 at 9:04 Board Certified Radiologist. This report was verified electronically.
[2017-11-17] MEDS: PANTOPRAZOLE SODIUM 40 MG VIAL IV PUSH SCH (10:29)
[2017-11-17] MEDS: TAMSULOSIN HCL 0.4 MG CAP PO SCH (10:30)
[2017-11-17] MEDS: CARVEDILOL 3.125 MG TAB PO SCH ×2 (10:30→20:55)
[2017-11-17 10:31] LABS: MEAN CELL VOLUME 89.7 FL (80.0-100.0); MEAN CORPUSCULAR HGB CONC 33.5 % (32.0-36.0); MEAN PLATELET VOLUME 10.3 FL (7.0-11.0); PLATELET COUNT 157 TH/MM3 (150-450); RED BLOOD COUNT 2.33 MIL/MM3 (4.50-5.90); RED CELL DISTRIBUTION WIDTH 16.3 % (11.6-17.2); WHITE BLOOD COUNT 11.6 TH/MM3 (4.0-11.0)
[2017-11-17 10:37] LABS: INTERNATIONAL NORMALIZED RATIO 1.1 RATIO; PROTHROMBIN TIME - PATIENT 11.4 SEC (9.8-11.6)
[2017-11-17 10:41] LABS: HEMATOCRIT 20.9 % (39.0-51.0)
[2017-11-17] MEDS: POLYETHYLENE GLYCOL 17 GM PKG PO SCH (13:26)
[2017-11-17] MEDS: ASPIRIN 81 MG CHEW TAB PO SCH (13:26)
[2017-11-17] MEDS: CLOPIDOGREL 75 MG TAB PO SCH (13:27)
--- NOTE | 2017-11-17 14:13 | PD.CONS ---
HPI History of Present Illness This is a 82 year old M with PMH significant for BPH, according to his nephew at bedside these are the only prescription medication he takes on a frequent basis. Pt presented to the ER with complaints of hematuria, per family member, they went to visit the pt and noted there to be blood all over the house. Pt is now S/P cystoscopy with irrigation, per chart reports of urine clearing up yesterday. At time of my exam Ma bag with 100mL of clear red urine. During hospitalization pt began complaining of chest pain, EKG revealed STEMI. 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 GI has been consulted to evaluate pt for anemia and possible ileus. Pt reports no BM in 5 days. Per family member pts abdomen appears to be distended. Pt does report he has been passing gas. KUB (11/17) --> Nonspecific bowel gas pattern with stool in the colon. No evidence to suggest mechanical obstruction. Also noted is a drop in H/H this morning, hgb went from 8.5 yesterday to 6.7 this morning. 2 U PRBCs have been ordered, one is transfusing during my exam. No obvious source of GIB. However, per family member and RN urine is now increasingly red. Of note, CT Abdomen and pelvis () --> Radiopaque density layering within the bladder likely hematoma. Pt denies ever having colonoscopy and he is unsure if he has ever had EGD. Also, pt noted to have elevated LFTs, they were WNL when he was admitted, elevated on 11/13 likely secondary to hypotension shocked liver. Pt denies history of liver issues. Denies ETOH. (Franny Esquivel) PFSH Past Medical History BPH Past Surgical History cystoscopy prior (Franny Esquivel) Coded Allergies: No Known Allergies (Verified Allergy, Unknown, 11/10/17) Family History none that he knows of Social History Smokes- /2 PPD Denies ETOH Denies illicit drug use (Franny Esquivel) Review of Systems Gastrointestinal: COMPLAINS OF: Constipation, Nausea, Swelling of Abdomen, Heartburn, DENIES: Abdominal pain, Black stools, Bloody stools, Diarrhea, Vomiting, Difficulty Swallowing, Odynophagia, Hematemesis (Franny Esquivel) GI Exam Vitals I&O Vital Signs Date Time Temp Pulse Resp B/P (MAP) Pulse Ox O2 Delivery O2 Flow Rate FiO2 11/17/17 13:25 97/55 11/17/17 12:20 98.5 76 19 101/55 99 11/17/17 12:15 71 19 94/51 98 11/17/17 12:10 69 18 94/53 99 11/17/17 12:04 98.1 72 19 101/50 98 11/17/17 11:48 98.9 71 19 103/57 (72) 100 11/17/17 11:00 74 11/17/17 10:00 74 11/17/17 09:00 72 11/17/17 08:52 95 21 11/17/17 08:00 74 11/17/17 07:56 98.1 74 19 116/56 (76) 98 11/17/17 07:00 75 11/17/17 03:33 80 11/17/17 03:25 99.1 95 17 105/51 (69) 96 11/17/17 00:18 96 21 11/16/17 23:36 80 11/16/17 23:36 97.8 86 16 95/53 (67) 99 11/16/17 19:20 76 11/16/17 19:20 97.5 77 18 116/58 (77) 96 11/16/17 15:00 78 11/16/17 15:00 98.0 78 16 99/56 (70) 98 I/O 11/16/17 11/16/17 11/16/17 11/17/17 11/17/17 11/17/17 07:00 15:00 23:00 07:00 15:00 23:00 Intake Total 200 ml 480 ml 480 ml 10 ml Output Total 92026 ml 1075 ml 5850 ml Balance -92490 ml -595 ml -5370 ml 10 ml Intake Oral 200 ml 480 ml 480 ml Blood Product IV Normal Saline Flush 10 ml Output Urine Total 47777 ml 1075 ml 5850 ml Emesis 200 ml # Bowel Movements 0 0 Imaging Last Impressions Abdomen X-Ray 11/17/17 0000 Signed Impressions: Service Date/Time: Friday, November 17, 2017 08:42 - CONCLUSION: Nonspecific bowel gas pattern with stool in the colon. No evidence to suggest mechanical obstruction. Amador Leiva MD Chest X-Ray 11/14/17 0650 Signed Impressions: Service Date/Time: Tuesday, November 14, 2017 07:29 - CONCLUSION: Normal examination. Sudarshan Espino MD Abdomen/Pelvis CT 11/10/17 1210 Signed Impressions: Service Date/Time: Friday, November 10, 2017 12:47 - CONCLUSION: 1. Radiopaque material within the urinary bladder likely hematoma. Underlying mass cannot be excluded. 2. Mild wall thickening of the urinary bladder. 3. Enlarged prostate. 4. Right inguinal hernia containing small bowel loops without obstruction. 5. Diverticulosis without diverticulitis. 6. Small hiatal hernia. Mark Fitch MD Laboratory Test 11/16/17 18:30 11/16/17 20:01 11/17/17 04:20 11/17/17 09:40 Urine Color LIGHT-YELLOW Urine Turbidity CLEAR Urine pH 5.5 Urine Specific [place] 1.006 Urine Protein NEG mg/dL Urine Glucose (UA) NEG mg/dL Urine Ketones NEG mg/dL Urine Occult Blood MOD Urine Nitrite NEG Urine Bilirubin NEG Urine Urobilinogen LESS THAN 2.0 MG/DL Urine Leukocyte Esterase NEG Urine RBC /hpf Urine WBC 4 /hpf Urine Mucus FEW /lpf Microscopic Urinalysis Comment CATH-CULT NOT IND Blood Gas Puncture Site RT RADIAL Blood Gas Patient Temperature 98.6 Blood Gas HCO3 20 mmol/L Blood Gas Base Excess -2.8 mmol/L Blood Gas Oxygen Saturation 95 % Arterial Blood pH 7.49 Arterial Blood Partial Pressure CO2 27 mmHg Arterial Blood Partial Pressure O2 88 mmHg Arterial Blood Oxygen Content 15.0 Vol % Arterial Blood Carboxyhemoglobin 1.0 % Arterial Blood Methemoglobin 1.3 % Blood Gas Hemoglobin 11.2 G/DL Oxygen Delivery Device ROOM AIR Blood Gas Inspired Oxygen 21 % White Blood Count 9.9 TH/MM3 11.6 TH/MM3 Red Blood Count 2.15 MIL/MM3 2.33 MIL/MM3 Hemoglobin 6.7 GM/DL 7.0 GM/DL Hematocrit 19.5 % 20.9 % Mean Corpuscular Volume 90.6 FL 89.7 FL Mean Corpuscular Hemoglobin 31.0 PG 30.0 PG Mean Corpuscular Hemoglobin Concent 34.2 % 33.5 % Red Cell Distribution Width 16.2 % 16.3 % Platelet Count 129 TH/MM3 157 TH/MM3 Mean Platelet Volume 10.0 FL 10.3 FL Blood Urea Nitrogen 19 MG/DL Creatinine 1.00 MG/DL Random Glucose 104 MG/DL Total Protein 4.7 GM/DL Albumin 2.0 GM/DL Calcium Level 7.0 MG/DL Magnesium Level 1.8 MG/DL Alkaline Phosphatase 51 U/L Aspartate Amino Transf (AST/SGOT) 51 U/L Alanine Aminotransferase (ALT/SGPT) 26 U/L Total Bilirubin 0.4 MG/DL Direct Bilirubin 0.1 MG/DL Sodium Level 143 MEQ/L Potassium Level 3.6 MEQ/L Chloride Level 111 MEQ/L Carbon Dioxide Level 24.2 MEQ/L Anion Gap 8 MEQ/L Estimat Glomerular Filtration Rate 71 ML/MIN Protein Corrected Calcium 8.7 MG/DL Indirect Bilirubin 0.3 MG/DL Thyroid Stimulating Hormone 3rd Gen 1.120 uIU/ML Prothrombin Time 11.4 SEC Prothromb Time International Ratio 1.1 RATIO Date/Time Source Procedure Growth Status 11/10/17 12:20 Urine Clean Catch Urine Culture - Final <10,000 CFU/ML GRAM POSITIVE ANJEL Complete Physical Examination HEENT: Normocephalic; atraumatic CHEST: Even/unlabored CARDIAC: RRR ABDOMEN: Distended, soft, nontender, bowel sounds active SKIN: Normal; no rash; no jaundice. HOGSHEAD LINER: No focal deficits; alert and oriented times three. (Franny Esquivel) Assessment and Plan Plan Assessment: - Ileus- Reports of no BM in 5 days. KUB noted (11/17) --> Nonspecific bowel gas pattern with stool in the colon. No evidence to suggests mechanical obstruction. - Anemia- normocytic- Drop in H/H overnight. Hgb was 8.5 yesterday, dropped to 6.7 this morning. 2 U PRBCs ordered, one transfusing during my exam. Given history of hematuria and CT consistent with hematoma in bladder, likely the cause. Per RN urine is increasingly red in color today. Pt is S/P cystoscopy with irrigation. No obvious source of GIB, pt denies BM in five days, no emesis. Has never had colonoscopy, he is unsure if he has ever had EGD. - Transaminitis- LFTS WNL on admission, elevated on 11/13 likely secondary to hypotension shocked liver. Denies ETOH and history of liver issues. - Acid reflux, belching- family has been giving pt Alondra Manriqueztzer to help with symptoms. Protonix - STEMI S/P PCI with stent placement on 11/13- now on Plavix and ASA per cardiology Plan: - High risk for GI procedures given recent PCI with stent- now on Plavix and ASA- will order Hemoccult to assess for bleeding - MiraLAX - Reglan 5 mg IV q 8 hr - Repeat KUB - Monitor H/H - Notify GI of active bleeding - Protonix - Further recommendations to follow based on clinical course and results of above Pt has been seen and examined by myself and Dr. Buitrago and this note is written on his behalf (Franny Esquivel) Physician Comments Seen with brea Snell as above. Discussed with family and patient. Will follow up with you Thank you for the consult. (Wendi Buitrago MD) Franny Esquivel Nov 17, 2017 14:13 Wendi Buitrago MD Nov 17, 2017 14:52
[2017-11-17] MEDS: SODIUM CHLOR 0.9% 1000 ML INJ 1,000 ML IV SCH (14:50)
[2017-11-17] MEDS ORDERED: FUROSEMIDE 20 MG/2 ML VIAL IV PUSH SCH (15:45)
--- NOTE | 2017-11-17 17:13 | PD.CARD.PN ---
Subjective Subjective Remarks alert in nad, denies chest pain or dyspnea Objective Medications Current Medications Medications (Trade) Dose Ordered Sig/Micheal Route Start Time Stop Time Status Last Admin (Narcan Inj) 0.4 mg UNSCH PRN IV PUSH 11/10/17 14:15 (Flomax) 0.4 mg DAILY PO 11/11/17 09:00 11/17/17 10:30 (Catapres) 0.1 mg Q6H PRN PO 11/10/17 18:15 11/11/17 20:52 Aminocaproic Acid 3000 mg/Sodium Chloride 3,012 ml @ 0 mls/hr UNSCH IRRIGATION 11/13/17 14:15 11/16/17 07:15 (NS Flush) 2 ml UNSCH PRN IV FLUSH 11/13/17 16:45 (NS Flush) 2 ml BID IV FLUSH 11/13/17 21:00 11/17/17 09:00 (Aspirin Chew) 162 mg DAILY PO 11/14/17 09:00 11/17/17 13:26 (Plavix) 75 mg DAILY PO 11/14/17 09:00 11/17/17 13:27 (Coreg) 3.125 mg BID PO 11/13/17 21:00 11/17/17 10:30 (Lipitor) 10 mg HS PO 11/13/17 21:00 11/16/17 21:30 Sodium Chloride 1,000 ml @ 75 mls/hr [id number] IV 11/13/17 17:30 11/16/17 23:46 Dexmedetomidine HCl 200 mcg/ Sodium Chloride 52 ml @ 3.53 mls/hr TITRATE PRN IV 11/13/17 19:15 Nitroglycerin/ Dextrose 250 ml @ 1.5 mls/hr TITRATE PRN IV 11/13/17 19:30 11/13/17 19:30 (Zofran Inj) 4 mg Q6HR PRN IV PUSH 11/13/17 19:30 11/17/17 05:56 Norepinephrine Bitartrate 250 ml @ 7.5 mls/hr TITRATE PRN IV 11/13/17 20:00 11/13/17 19:00 Potassium Chloride 100 ml @ 50 mls/hr Q2H PRN IV 11/14/17 11:45 Potassium Chloride 100 ml @ 50 mls/hr Q2H PRN IV 11/14/17 11:45 11/15/17 06:45 Potassium Chloride 100 ml @ 25 mls/hr UNSCH PRN IV 11/14/17 11:45 Potassium Chloride 100 ml @ 50 mls/hr Q2H PRN IV 11/14/17 11:45 11/16/17 02:03 Magnesium Sulfate 4 gm/Sodium Chloride 100 ml @ 50 mls/hr UNSCH PRN IV 11/14/17 11:45 (Mag-Ox) 800 mg UNSCH PRN PO 11/14/17 11:45 Magnesium Sulfate 2 gm/Sodium Chloride 100 ml @ 50 mls/hr UNSCH PRN IV 11/14/17 11:45 (K-Phos) 2,000 mg Q4H PRN PO 11/14/17 11:45 Sodium Phosphate 30 mmol/Sodium Chloride 250 ml @ 42 mls/hr UNSCH PRN IV 11/14/17 11:45 (K-Phos) 2,000 mg UNSCH PRN PO/TUBE 11/14/17 11:45 Potassium Phosphate 30 mmol/ Sodium Chloride 260 ml @ 42 mls/hr UNSCH PRN IV 11/14/17 11:45 Aminocaproic Acid 1000 mg/Sodium Chloride 1,004 ml @ 0 mls/hr UNSCH IRRIGATION 11/14/17 17:00 Future hold (Percocet 5-325 Mg) 1 tab Q4H PRN PO 11/16/17 10:30 Sodium Chloride 250 ml @ 15 mls/hr ONCE ONCE IV 11/17/17 05:45 11/17/17 22:24 11/17/17 05:45 (Protonix Inj) 40 mg DAILY IV PUSH 11/17/17 09:00 11/17/17 10:29 (Miralax) 17 gm DAILY PO 11/17/17 11:00 11/17/17 13:26 (Reglan Inj) 5 mg Q8HR IV PUSH 11/17/17 22:00 (Lasix Inj) 20 mg UNSCH X1 IV PUSH 11/17/17 15:45 11/17/17 18:00 11/17/17 15:37 Vital Signs / I&O Vital Signs Date Time Temp Pulse Resp B/P (MAP) Pulse Ox O2 Delivery O2 Flow Rate FiO2 11/17/17 15:55 71 19 106/57 97 11/17/17 15:50 65 17 104/57 100 11/17/17 15:46 98.2 69 19 95/51 (66) 98 11/17/17 15:43 98.2 73 19 95/53 99 11/17/17 14:00 62 11/17/17 13:25 97/55 11/17/17 13:00 64 11/17/17 12:20 98.5 76 19 101/55 99 11/17/17 12:15 71 19 94/51 98 11/17/17 12:10 69 18 94/53 99 11/17/17 12:04 98.1 72 19 101/50 98 11/17/17 12:00 70 11/17/17 11:48 98.9 71 19 103/57 (72) 100 11/17/17 11:00 74 11/17/17 10:00 74 11/17/17 09:00 72 11/17/17 08:52 95 21 11/17/17 08:00 74 11/17/17 07:56 98.1 74 19 116/56 (76) 98 11/17/17 07:00 75 11/17/17 03:33 80 11/17/17 03:25 99.1 95 17 105/51 (69) 96 11/17/17 00:18 96 21 11/16/17 23:36 80 11/16/17 23:36 97.8 86 16 95/53 (67) 99 11/16/17 19:20 76 11/16/17 19:20 97.5 77 18 116/58 (77) 96 I/O 11/16/17 11/16/17 11/16/17 11/17/17 11/17/17 11/17/17 07:00 15:00 23:00 07:00 15:00 23:00 Intake Total 200 ml 480 ml 480 ml 10 ml 510 ml Output Total 08142 ml 1075 ml 5850 ml Balance -17414 ml -595 ml -5370 ml 10 ml 510 ml Intake Oral 200 ml 480 ml 480 ml Packed Cells 400 ml Blood Product IV Normal Saline Flush 10 ml 110 ml Output Urine Total 57031 ml 1075 ml 5850 ml Emesis 200 ml # Bowel Movements 0 0 Physical Exam GENERAL: SKIN: Warm and dry. HEAD: Normocephalic. EYES: No scleral icterus. No injection or drainage. NECK: Supple, trachea midline. No JVD or lymphadenopathy. CARDIOVASCULAR: Regular rate and rhythm without murmurs, gallops, or rubs. RESPIRATORY: Breath sounds equal bilaterally. No accessory muscle use. GASTROINTESTINAL: Abdomen soft, non-tender, nondistended. MUSCULOSKELETAL: No cyanosis, or edema. BACK: Nontender without obvious deformity. No CVA tenderness. Laboratory Laboratory Tests Test 11/16/17 18:30 11/16/17 20:01 11/17/17 04:20 11/17/17 09:40 Urine Color LIGHT-YELLOW Urine Turbidity CLEAR Urine pH 5.5 Urine Specific [place] 1.006 Urine Protein NEG mg/dL Urine Glucose (UA) NEG mg/dL Urine Ketones NEG mg/dL Urine Occult Blood MOD Urine Nitrite NEG Urine Bilirubin NEG Urine Urobilinogen LESS THAN 2.0 MG/DL Urine Leukocyte Esterase NEG Urine RBC /hpf Urine WBC 4 /hpf Urine Mucus FEW /lpf Microscopic Urinalysis Comment CATH-CULT NOT IND Blood Gas Puncture Site RT RADIAL Blood Gas Patient Temperature 98.6 Blood Gas HCO3 20 mmol/L Blood Gas Base Excess -2.8 mmol/L Blood Gas Oxygen Saturation 95 % Arterial Blood pH 7.49 Arterial Blood Partial Pressure CO2 27 mmHg Arterial Blood Partial Pressure O2 88 mmHg Arterial Blood Oxygen Content 15.0 Vol % Arterial Blood Carboxyhemoglobin 1.0 % Arterial Blood Methemoglobin 1.3 % Blood Gas Hemoglobin 11.2 G/DL Oxygen Delivery Device ROOM AIR Blood Gas Inspired Oxygen 21 % White Blood Count 9.9 TH/MM3 11.6 TH/MM3 Red Blood Count 2.15 MIL/MM3 2.33 MIL/MM3 Hemoglobin 6.7 GM/DL 7.0 GM/DL Hematocrit 19.5 % 20.9 % Mean Corpuscular Volume 90.6 FL 89.7 FL Mean Corpuscular Hemoglobin 31.0 PG 30.0 PG Mean Corpuscular Hemoglobin Concent 34.2 % 33.5 % Red Cell Distribution Width 16.2 % 16.3 % Platelet Count 129 TH/MM3 157 TH/MM3 Mean Platelet Volume 10.0 FL 10.3 FL Blood Urea Nitrogen 19 MG/DL Creatinine 1.00 MG/DL Random Glucose 104 MG/DL Total Protein 4.7 GM/DL Albumin 2.0 GM/DL Calcium Level 7.0 MG/DL Magnesium Level 1.8 MG/DL Alkaline Phosphatase 51 U/L Aspartate Amino Transf (AST/SGOT) 51 U/L Alanine Aminotransferase (ALT/SGPT) 26 U/L Total Bilirubin 0.4 MG/DL Direct Bilirubin 0.1 MG/DL Sodium Level 143 MEQ/L Potassium Level 3.6 MEQ/L Chloride Level 111 MEQ/L Carbon Dioxide Level 24.2 MEQ/L Anion Gap 8 MEQ/L Estimat Glomerular Filtration Rate 71 ML/MIN Protein Corrected Calcium 8.7 MG/DL Indirect Bilirubin 0.3 MG/DL Thyroid Stimulating Hormone 3rd Gen 1.120 uIU/ML Prothrombin Time 11.4 SEC Prothromb Time International Ratio 1.1 RATIO Imaging Last 24 hours Impressions Abdomen X-Ray 11/17/17 0000 Signed Impressions: Service Date/Time: Friday, November 17, 2017 08:42 - CONCLUSION: Nonspecific bowel gas pattern with stool in the colon. No evidence to suggest mechanical obstruction. Amador Leiva MD Assessment and Plan Problem List: (1) Cardiomyopathy ICD Codes: I42.9 - Cardiomyopathy, unspecified (2) CAD (coronary artery disease) ICD Codes: I25.10 - Atherosclerotic heart disease of [place] coronary artery without angina pectoris (3) Hematuria ICD Codes: R31.9 - Hematuria, unspecified Status: Acute (4) Gross hematuria ICD Codes: R31.0 - Gross hematuria Status: Acute Assessment and Plan 1.) CAD - pod# 4 primary pci, assymptomatic, continue aspirin, plavix, lipitor, coreg, dov held due ubstructive uopathy and hypotension, transfuse prn to keep hgb> 9.0, d/w nurse, hematuria improving Nathanael Kelley MD Nov 17, 2017 17:13
[2017-11-17] MEDS ORDERED: AMIODARONE INJ 150 MG in DEXTROSE 5% IN WATER 100ML INJ 100 ML IV ONE ×2 (18:38)
--- NOTE | 2017-11-17 18:43 | HHI.CCPN ---
Subjective Remarks/Hospital Course 11/13: Patient is an 82-year-old male with past medical history of BPH, tobacco abuse who presented 11/12/2017 with dysuria, hematuria and urinary retention. Patient was admitted to the hospitalist service and underwent cystoscopy with fulguration by Dr. Lee. Was also placed on continuous bladder irrigation. Patient developed chest pain today a.m. EKG showed significant anterolateral ST elevation troponin bumped to 6.5 emergently taken to cardiac catheterization by Dr. Kelley. Received PCI, LAD stent,. Was loaded with 600 mg Plavix and was started on Aggrastat. Post stenting went to [facility] developed hypotension and was moved to the CVICU. Initially seen by Dr. Ryan patient had gross hematuria so O negative blood 2 units were ordered stat. I evaluated the patient in CVICU. He is persistently hypotensive receiving first 2 units of blood. Started on 1 mcg/min Levophed. Remains borderline hypotensive. Patient has significant gross hematuria, and is on CBI. He is anxious and complains about 9 out of 10 chest pain, I am starting on nitro drip. Patient may need IABP pain not resolved with nitro and Dilaudid/ Morphine. I have discussed with Dr. Kelley. 11/14: Resting comfortably in bed. Received 3 units PRBCs yesterday. Chest pain resolved currently. CBI with Amicar ongoing. Minimal pink tinged CBI fluid noted. 11/15: Resting comfortably. Denies SOB or abd pain. No chest pain currently. Reconsult 11/17: Patient 10 minute episode of reperfusion rhythm/V. tach. Potassium is 3.2. Magnesium 1.8 this a.m. Given 2 g mag sulfate IV 1 now. We placed on amiodarone drip. Discussed with Dr. Kelley will transfer to [facility]. Objective Vital Signs Date Time Temp Pulse Resp B/P (MAP) Pulse Ox O2 Delivery O2 Flow Rate FiO2 11/17/17 15:55 71 19 106/57 97 11/17/17 15:46 98.2 11/17/17 08:52 21 11/14/17 10:45 Nasal Cannula 2.00 Intake and Output 11/17/17 11/17/17 11/18/17 08:00 16:00 00:00 Intake Total 480 ml 520 ml Output Total 5850 ml Balance -5370 ml 520 ml Result Diagram: 3/6/18 0940 11/17/17 0420 Other Results Microbiology Date/Time Source Procedure Growth Status 11/10/17 12:20 Urine Clean Catch Urine Culture - Final <10,000 CFU/ML GRAM POSITIVE ANJEL Complete Imaging Last Impressions Abdomen X-Ray 11/17/17 0000 Signed Impressions: Service Date/Time: Friday, November 17, 2017 08:42 - CONCLUSION: Nonspecific bowel gas pattern with stool in the colon. No evidence to suggest mechanical obstruction. Amador Leiva MD Chest X-Ray 11/14/17 0650 Signed Impressions: Service Date/Time: Tuesday, November 14, 2017 07:29 - CONCLUSION: Normal examination. Sudarshan Espino MD Abdomen/Pelvis CT 11/10/17 1210 Signed Impressions: Service Date/Time: Friday, November 10, 2017 12:47 - CONCLUSION: 1. Radiopaque material within the urinary bladder likely hematoma. Underlying mass cannot be excluded. 2. Mild wall thickening of the urinary bladder. 3. Enlarged prostate. 4. Right inguinal hernia containing small bowel loops without obstruction. 5. Diverticulosis without diverticulitis. 6. Small hiatal hernia. Mark Fitch MD Procedures Catheterization Objective Remarks GENERAL: Well-nourished, well-developed patient. Laying in bed n complaining of suprapubic pain SKIN: Skin assessment warm/dry. HEAD: Normocephalic. EYES: Pallor+ NECK: Supple, trachea midline. + JVD CARDIOVASCULAR: Regular rate and rhythm S1, S2. No S4. Without murmurs, RESPIRATORY: Breath sounds equal bilaterally. No accessory muscle use. GASTROINTESTINAL: Abdomen soft, nondistended. Right inguinal hernia : CBI ongoing with clear urine on return. MUSCULOSKELETAL: No cyanosis, or edema. NEURO: Patient is awake and alert oriented, No obvious focal deficit. A/P Assessment and Plan NEURO/PSYCH: Ofirmev 1 g IV every 8 hours as needed Hydromorphone 0 point to 0.5 mg IV every 4 hours as needed pain RESP: -Nasal cannula oxygen to maintain saturations greater than equal to 9% Incentive spirometry while awake Albuterol/ipratropium aerosols every 6 hours with albuterol aerosols every 2 hours as needed dyspnea CV: STEMI s/p LAD Stent V. tach Elevated troponin Lactic acidosis -Continue maintenance IV fluids normal saline at 75 cc an hour with lactic acidosis. Serial lactates until cleared Currently on amiodarone drip. Received 2 g mag sulfate. -On aspirin 162 mg daily with clopidogrel 75 mg daily per cardiology -Resumed carvedilol 3.125 mg p.o. twice daily 18 atorvastatin 10 mg p.o. daily for dyslipidemia 2-D echo with low LVEF 35-40%. Anterior lateral wall akinesia. Consider BOBBY inhibitor. Defer to cardiology GI: Constipation Elevated AST Hypoalbuminemia Right inguinal hernia Diverticulosis Evaluated by gastroenterology. CT abdomen/pelvis earlier this hospitalization revealed right inguinal hernia without signs of strangulation, hiatal hernia, diverticulosis without diverticulitis and BPH Pantoprazole for GI prophylaxis 1 dose of methylnaltrexone [address] abdomen/pelvis today with abdominal pain : Gross hematuria Status post cystoscopy and fulguration -Monitor renal function closely. Continuous bladder irrigation with Amicar per urology -Further hematuria and CBI management per Jesus with aminocaproic acid Continue tamsulosin 0.4 mg p.o. daily ID: We will place on IV ceftriaxone with 3 UTI Repeat UA today HEME: Leukocytosis Normocytic anemia currently 11.4 -Status post 5 units PRBCs since admission -Monitor CBC CMP coags fibrinogen closely -Transfuse to keep hemoglobin more than [address] Kelley's request ENDO/FEN: Hypo-potassium 60 milliequivalent potassium chloride IV 1 now. Recheck in a.m. -Electrolyte replacement per protocol TSH normal PROPH: -Bilateral lower extremity SCDs. Chemical DVT prophylaxis is contraindicated at this time. Continue SCDs LINES: -Utilize peripheral IVs Critical care time 35 minutes Jagjit Yap MD Nov 17, 2017 18:43
[2017-11-17] MEDS ORDERED: AMIODARONE INJ 450 MG in SODIUM CHLOR 0.9% (EXCEL) INJ 250 ML IV PRN ×2 (18:48→21:05)
[2017-11-17 19:03] LABS: AUTOMATED NEUTROPHIL # 10.7 TH/MM3 (1.8-7.7); BASOPHIL # 0.1 TH/MM3 (0-0.2); BASOPHIL % 0.5 % (0.0-2.0); EOSINOPHIL # 0.1 TH/MM3 (0-0.4); EOSINOPHIL % 0.7 % (0.0-4.0); HEMATOCRIT 33.5 % (39.0-51.0); HEMOGLOBIN 11.4 GM/DL (13.0-17.0); LYMPHOCYTE # 7.6 TH/MM3 (1.0-4.8); MEAN CORPUSCULAR HGB CONC 34.1 % (32.0-36.0); MEAN PLATELET VOLUME 9.9 FL (7.0-11.0); MONO % 5.1 % (0.0-8.0); NEUT % 54.7 % (16.0-70.0); PLATELET COUNT 227 TH/MM3 (150-450); RED CELL DISTRIBUTION WIDTH 16.1 % (11.6-17.2); WHITE BLOOD COUNT 19.5 TH/MM3 (4.0-11.0)
[2017-11-17 20:07] LABS: ALBUMIN 2.5 GM/DL (3.4-5.0); CALCIUM 7.1 MG/DL (8.5-10.1); CALCIUM-PROTEIN CORRECTED 7.7 MG/DL (8.5-10.1); CREATININE 1.32 MG/DL (0.60-1.30); MAGNESIUM 3.4 MG/DL (1.5-2.5); PHOSPHORUS 2.5 MG/DL (2.5-4.9)
[2017-11-17 20:17] LABS: TROPONIN I 18.9 NG/ML (0.02-0.05)
[2017-11-17] MEDS ORDERED: CHLORHEXIDINE GLUCONATE 2 % 1 PACK (2 CLOTHS)(extra cloths) TOPICAL PRN (20:45)
[2017-11-17] MEDS: ATORVASTATIN 10 MG TAB PO SCH (20:55)
[2017-11-17 20:56] LABS: INTERNATIONAL NORMALIZED RATIO 1.1 RATIO; PROTHROMBIN TIME - PATIENT 10.9 SEC (9.8-11.6)
[2017-11-17] MEDS: METOCLOPRAMIDE HCL 10 MG/2 ML VIAL IV PUSH SCH (20:56)
[2017-11-17] MEDS ORDERED: CALCIUM GLUCONATE INJ 1 GM in SODIUM CHLORIDE 0.9% INJ 100 ML IV ONE (21:00)
[2017-11-17] MEDS ORDERED: METHYLNALTREXONE BROMIDE 12 MG/0.6 ML VIAL SQ ONE (21:00)
[2017-11-17] MEDS ORDERED: ACETAMINOPHEN 1000 MG/100 ML 100 ML IV PRN (21:15)
[2017-11-17] MEDS: RESP: ALBUTEROL 2.5 MG/IPRATROPIUM 0.5 MG NEB (SCH) NEB (21:31)
[2017-11-17] MEDS: cefTRIAXone INJ 1,000 MG in SODIUM CHLORIDE 0.9% INJ 100 ML IV SCH (21:47)
[2017-11-17] MEDS: POTASSIUM CHLOR 10 MEQ PREMIX 100 ML IV SCH ×3 (21:47→23:00)
[2017-11-17 21:50] LABS: BANDS 1 % (0-6); CORRECTED NUCLEATED RBC 1 /100 WBC (0-0); LYMPHOCYTES 34 % (9-44); MONOCYTES 3 % (0-8); NEUTROPHIL # MANUAL DIFF 12.1 TH/MM3 (1.8-7.7); NUCLEATED RED BLOOD CELL 1 (0-0); POLYS (SEG NEUTROPHILS) 61 % (16-70)
[2017-11-17] MEDS: AMIODARONE INJ 450 MG in SODIUM CHLOR 0.9% (EXCEL) INJ 241 ML IV PRN (22:06)
[2017-11-17] MEDS: HYDROmorphone HCL PF 2 MG/ML VIAL IV PRN (22:17)
[2017-11-18] VITALS (16 sets, daily range): BP systolic 98–147; BP diastolic 53–70; PULSE 64–92; RESP 18–40; TEMP 97.6–98.6; O2SAT 88–97
[2017-11-18 00:41] LABS: HEMATOCRIT 29.4 % (39.0-51.0)
[2017-11-18] MEDS: POTASSIUM CHLOR 10 MEQ PREMIX 100 ML IV SCH ×3 (01:00→02:49)
[2017-11-18] MEDS: RESP: ALBUTEROL 2.5 MG/3 ML NEB (PRN) NEB (01:46)
[2017-11-18 02:02] LABS: BILIRUBIN, URINE NEG (NEG); BLOOD, URINE LARGE (NEG); GLUCOSE,URINE NEG (NEG); KETONE, URINE TRACE mg/dL (NEG); MUCUS URINE FEW /lpf (OCC); NITRITE,URINE NEG (NEG); URINE LEUKOCYTE ESTERASE SMALL (NEG)
[2017-11-18 02:03] LABS: URINE COLOR LIGHT-RED (YELLW/STRAW)
[2017-11-18] MEDS: RESP: ALBUTEROL 2.5 MG/IPRATROPIUM 0.5 MG NEB (SCH) NEB ×4 (03:25→19:09)
[2017-11-18] MEDS: CHLORHEXIDINE GLUCONATE 2 % 1 PACK (2 CLOTHS)(taper/protocol) TOPICAL SCH (04:00)
[2017-11-18] MEDS: ONDANSETRON HCL 4 MG/2 ML VIAL IV PUSH PRN (04:04)
[2017-11-18] MEDS: HYDROmorphone HCL PF 2 MG/ML VIAL IV PRN ×2 (04:04→07:43)
[2017-11-18] MEDS: SODIUM CHLOR 0.9% 1000 ML INJ 1,000 ML IV SCH ×2 (04:10→11:29)
--- NOTE | 2017-11-18 05:04 | RADRPT ---
EXAM DATE/TIME: 11/18/2017 03:28 [place] COMPARISON: CHEST SINGLE AP, November 14, 2017, 7:29. INDICATIONS : Short of breath. MEDICAL HISTORY : Hypertension. SURGICAL HISTORY : Prostatectomy. ENCOUNTER: Subsequent ACUITY: 4 - 6 days PAIN SCORE: 0/10 LOCATION: Bilateral chest FINDINGS: Portable AP view of the chest demonstrates a normal-sized cardiac silhouette. Lungs are underinflated . There are new interstitial opacities bilaterally primarily in the mid and lower lung zone distribut ion. There are Aye B-lines on the right. No pleural effusion or pneumothorax is seen. Bones and so ft tissues demonstrate no acute finding. CONCLUSION: New interstitial opacities bilaterally in a pattern characteristic of interstitial pulmonary edema. Eduin Loo MD on November 18, 2017 at 5:02 Board Certified Radiologist. This report was verified electronically.
[2017-11-18 05:39] LABS: HEMATOCRIT 32.9 % (39.0-51.0); HEMOGLOBIN 11.2 GM/DL (13.0-17.0)
[2017-11-18 05:40] LABS: AUTOMATED NEUTROPHIL # 13.9 TH/MM3 (1.8-7.7); BASOPHIL # 0.1 TH/MM3 (0-0.2); BASOPHIL % 0.3 % (0.0-2.0); EOSINOPHIL % 0.2 % (0.0-4.0); HEMATOCRIT 33.3 % (39.0-51.0); HEMOGLOBIN 11.2 GM/DL (13.0-17.0); LYMPH % 16.2 % (9.0-44.0); LYMPHOCYTE # 2.9 TH/MM3 (1.0-4.8); MEAN CELL VOLUME 87.2 FL (80.0-100.0); MEAN CORPUSCULAR HEMOGLOBIN 29.3 PG (27.0-34.0); MEAN CORPUSCULAR HGB CONC 33.6 % (32.0-36.0); MEAN PLATELET VOLUME 9.9 FL (7.0-11.0); MONO % 5.6 % (0.0-8.0); NEUT % 77.7 % (16.0-70.0); PLATELET COUNT 264 TH/MM3 (150-450); RED BLOOD COUNT 3.82 MIL/MM3 (4.50-5.90); RED CELL DISTRIBUTION WIDTH 16.4 % (11.6-17.2); WHITE BLOOD COUNT 17.9 TH/MM3 (4.0-11.0)
[2017-11-18] MEDS ORDERED: LACTULOSE SYRUP 20 GM/30 ML CUP PO ONE (05:45)
[2017-11-18] MEDS: METOCLOPRAMIDE HCL 10 MG/2 ML VIAL IV PUSH SCH ×3 (06:02→21:37)
[2017-11-18] MEDS: AMINOCAPROIC ACID INJ 3,000 MG in SODIUM CHLORIDE 0.9% IRR BAG 3,000 ML IRRIGATION SCH (06:07)
[2017-11-18] MEDS: AMIODARONE INJ 450 MG in SODIUM CHLOR 0.9% (EXCEL) INJ 241 ML IV PRN ×2 (06:47→21:35)
[2017-11-18] MEDS: ASPIRIN 81 MG CHEW TAB PO SCH (09:00)
[2017-11-18] MEDS: SODIUM CHLORIDE 0.9% FLUSH 10 ML FLUSH IV FLUSH SCH ×2 (09:00→21:37)
[2017-11-18] MEDS ORDERED: DIATRIZOATE MEGLUM/DIATRIZOATE SOD 9 ML CUP PO ONE (09:00)
--- NOTE | 2017-11-18 09:26 | HHI.PR ---
Subjective Patient symptoms today Pt seen and examined. Events noted. Urine is clear. Hgb stable now at 11.2. Objective Vital Signs Vital Signs Date Time Temp Pulse Resp B/P (MAP) Pulse Ox O2 Delivery O2 Flow Rate FiO2 11/18/17 09:09 97 Nasal Cannula 2.00 11/18/17 06:47 68 135/67 11/18/17 06:00 67 11/18/17 05:10 16 11/18/17 04:00 85 11/18/17 04:00 97.9 85 28 131/58 (82) 94 11/18/17 02:00 64 11/18/17 00:00 65 11/18/17 00:00 98.0 65 26 98/53 (68) 95 11/17/17 22:06 89 114/60 11/17/17 22:00 83 11/17/17 21:46 92 133/89 11/17/17 20:00 87 11/17/17 20:00 97.4 87 24 131/70 (90) 99 11/17/17 19:32 99 11/17/17 15:55 71 19 106/57 97 11/17/17 15:50 65 17 104/57 100 11/17/17 15:46 98.2 69 19 95/51 (66) 98 11/17/17 15:43 98.2 73 19 95/53 99 11/17/17 14:00 62 11/17/17 13:25 97/55 11/17/17 13:00 64 11/17/17 12:20 98.5 76 19 101/55 99 11/17/17 12:15 71 19 94/51 98 11/17/17 12:10 69 18 94/53 99 11/17/17 12:04 98.1 72 19 101/50 98 11/17/17 12:00 70 11/17/17 11:48 98.9 71 19 103/57 (72) 100 11/17/17 11:00 74 11/17/17 10:00 74 Intake & Output 11/18/17 11/18/17 07:00 19:00 Intake Total 913 ml Output Total 1400 ml Balance -487 ml IV Total 913 ml Output Urine Total 1400 ml Result Diagram: 11/18/17 0516 11/17/17 1844 Imaging Last 24 hours Impressions Chest X-Ray 11/18/17 0600 Signed Impressions: Service Date/Time: Saturday, November 18, 2017 03:28 - CONCLUSION: New interstitial opacities bilaterally in a pattern characteristic of interstitial pulmonary edema. Eduin Loo MD Objective Remarks Abd:soft,nt,nd Hernández: few clots irrigated; now clear 11/13/17 Abd:soft,nt,nd Hernández: irrigated to clear at bedside. 11/14 Abd:soft,nt,nd Hernández: gross hematuria on Amicar CBI 11/15 Abd:soft,nt,nd Hernández: gross hematuria is now clear on Amicar CBI; will titrate down 11/16 Abd:soft,nt,nd Hernández: clear urine 11/17 Abd:soft,nt,nd Hernández: urine clear Titrate CBI to off 11/18 Abd:soft,nt,nt Hernández irrigated at bedside and clot was evacuated and 500-600cc drained Titrate CBI to off. Medications and IVs Current Medications Medications (Trade) Dose Ordered Sig/Micheal Route Start Time Stop Time Status Last Admin (Narcan Inj) 0.4 mg UNSCH PRN IV PUSH 11/10/17 14:15 (Flomax) 0.4 mg DAILY PO 11/11/17 09:00 11/17/17 10:30 (Catapres) 0.1 mg Q6H PRN PO 11/10/17 18:15 11/11/17 20:52 Aminocaproic Acid 3000 mg/Sodium Chloride 3,012 ml @ 0 mls/hr UNSCH IRRIGATION 11/13/17 14:15 11/18/17 06:07 (NS Flush) 2 ml UNSCH PRN IV FLUSH 11/13/17 16:45 (NS Flush) 2 ml BID IV FLUSH 11/13/17 21:00 11/17/17 20:56 (Aspirin Chew) 162 mg DAILY PO 11/14/17 09:00 11/17/17 13:26 (Plavix) 75 mg DAILY PO 11/14/17 09:00 11/17/17 13:27 (Coreg) 3.125 mg BID PO 11/13/17 21:00 11/17/17 20:55 (Lipitor) 10 mg HS PO 11/13/17 21:00 11/17/17 20:55 Sodium Chloride 1,000 ml @ 75 mls/hr [id number] IV 11/13/17 17:30 11/18/17 04:10 Dexmedetomidine HCl 200 mcg/ Sodium Chloride 52 ml @ 3.53 mls/hr TITRATE PRN IV 11/13/17 19:15 Nitroglycerin/ Dextrose 250 ml @ 1.5 mls/hr TITRATE PRN IV 11/13/17 19:30 11/13/17 19:30 (Zofran Inj) 4 mg Q6HR PRN IV PUSH 11/13/17 19:30 11/18/17 04:04 Potassium Chloride 100 ml @ 50 mls/hr Q2H PRN IV 11/14/17 11:45 Potassium Chloride 100 ml @ 50 mls/hr Q2H PRN IV 11/14/17 11:45 11/15/17 06:45 Potassium Chloride 100 ml @ 25 mls/hr UNSCH PRN IV 11/14/17 11:45 Potassium Chloride 100 ml @ 50 mls/hr Q2H PRN IV 11/14/17 11:45 11/16/17 02:03 Magnesium Sulfate 4 gm/Sodium Chloride 100 ml @ 50 mls/hr UNSCH PRN IV 11/14/17 11:45 (Mag-Ox) 800 mg UNSCH PRN PO 11/14/17 11:45 Magnesium Sulfate 2 gm/Sodium Chloride 100 ml @ 50 mls/hr UNSCH PRN IV 11/14/17 11:45 (K-Phos) 2,000 mg Q4H PRN PO 11/14/17 11:45 Sodium Phosphate 30 mmol/Sodium Chloride 250 ml @ 42 mls/hr UNSCH PRN IV 11/14/17 11:45 (K-Phos) 2,000 mg UNSCH PRN PO/TUBE 11/14/17 11:45 Potassium Phosphate 30 mmol/ Sodium Chloride 260 ml @ 42 mls/hr UNSCH PRN IV 11/14/17 11:45 Aminocaproic Acid 1000 mg/Sodium Chloride 1,004 ml @ 0 mls/hr UNSCH IRRIGATION 11/14/17 17:00 Future hold (Protonix Inj) 40 mg DAILY IV PUSH 11/17/17 09:00 11/17/17 10:29 (Miralax) 17 gm DAILY PO 11/17/17 11:00 11/17/17 13:26 (Reglan Inj) 5 mg Q8HR IV PUSH 11/17/17 22:00 11/18/17 06:02 Miscellaneous Information Patient in critical care unit? Ass... [id number] .XX 11/17/17 20:45 11/17/17 20:45 (Chlorhexidine 2% Cloth) 3 pack DAILY@04 TOPICAL 11/18/17 04:00 11/22/17 04:01 11/18/17 04:00 (Chlorhexidine 2% Cloth) 3 pack UNSCH PRN TOPICAL 11/17/17 20:45 11/22/17 20:32 (Dilaudid Pf Inj) 0.5 mg Q4H PRN IV 11/17/17 21:15 11/18/17 07:43 (Dilaudid Pf Inj) 0.2 mg Q4H PRN IV PUSH 11/17/17 21:15 Amiodarone HCl 450 mg/Sodium Chloride 250 ml @ 33.33 mls/ hr Q7H31M PRN IV 11/17/17 21:15 11/18/17 06:47 Acetaminophen 100 ml @ 400 mls/hr Q8HR PRN IV 11/17/17 21:15 (Duoneb Neb) 1 ampule Q6HR NEB NEB 11/17/17 22:00 11/18/17 09:08 (Albuterol Neb) 2.5 mg Q2HR NEB PRN NEB 11/17/17 21:15 11/18/17 01:46 Ceftriaxone Sodium 1000 mg/ Sodium Chloride 100 ml @ 200 mls/hr Q24H IV 11/17/17 22:00 11/17/17 21:47 (Lelia-Colace) 1 tab BID PO 11/18/17 09:00 (Lactulose Liq) 30 ml DAILY PO 11/18/17 09:00 Assessment and Plan Assessment and Plan 82 y.o male with gross hematuria Hematuria clears with manual irrigation Irrigate hernández Q 2 hours If persists, will need cysto. If clears can be discharged with hernández in place and perform void trial next week. 11/13/17 82 y.o male with gross hematuria s/p cysto with fulguration Hernández irrigated to clear this AM If urine remains clear can d/c home with hernández this afternoon and f/u next Wed. AM for void trial in office. 11/14 82 y.o male s/p NSTEMI yesterday s/p cardiac stent on Plavix with h/o prostatic bleeding s/p cysto/fulguration Will need to continue Amicar CBI Irrigate hernández prn clots Follow Hgb Creatinine improved. 11/15 82 y.o male s/p NSTEMI with h/o prostatic bleeding Slowly titrate down the Amicar Follow Hgb Continue Plavix 11/16 82 y.o male s/p NSTEMI with h/o prostatic bleeding Hematuria resolving Titrate Amicar drip to off as urine remains clear. 11/17 82 y.o male s/p NSTEMI with h/o prostatic bleeding Hgb dropped overnight from 8.5 to 6.7. Will repeat H/H stat If true, transfuse 2 units Guiac stools 11/18 82 y.o male s/p NSTEMI with h/o prostatic bleeding with recent run of V-tach Hernández irrigated and clot removed. Urine now draining clear Titrate Amicar CBI to off as urine remains clear Rafita Lee DO Nov 18, 2017 09:25
[2017-11-18] MEDS: POLYETHYLENE GLYCOL 17 GM PKG PO SCH (09:55)
[2017-11-18] MEDS: CARVEDILOL 3.125 MG TAB PO SCH ×2 (09:56→21:00)
[2017-11-18] MEDS: PANTOPRAZOLE SODIUM 40 MG VIAL IV PUSH SCH (09:56)
[2017-11-18] MEDS: CLOPIDOGREL 75 MG TAB PO SCH (09:56)
[2017-11-18] MEDS: LACTULOSE SYRUP 20 GM/30 ML CUP PO SCH (09:56)
[2017-11-18] MEDS: TAMSULOSIN HCL 0.4 MG CAP PO SCH (09:56)
[2017-11-18] MEDS: DOCUSATE SODIUM 50 MG/SENNA 8.6 MG TAB PO SCH ×2 (09:57→21:36)
[2017-11-18 10:22] LABS: BICARBONATE 21.2 MEQ/L (21.0-32.0); CALCIUM 7.1 MG/DL (8.5-10.1); CREATININE 1.39 MG/DL (0.60-1.30)
[2017-11-18 10:42] LABS: CALCIUM-PROTEIN CORRECTED 7.8 MG/DL (8.5-10.1); TOTAL PROTEIN 5.7 GM/DL (6.4-8.2)
--- NOTE | 2017-11-18 13:58 | EKG ---
Date Performed: 11/17/2017 Time Performed: 18:30:30 PTAGE: 82 years EKG: CONSIDER ACUTE ST ELEVATION MA Sinus rhythm . ANTERIOR ST elevation, CONSIDER ACUTE INFARCT Lateral T wave changes may be due to myocardial ische xena Generalized low QRS voltages Abnormal ECG NO PREVIOUS TRACING DOCTOR: Sudarshan Horn Interpretating Date/Time 11/18/2017 13:56:13
--- NOTE | 2017-11-18 14:14 | PD.CARD.PN ---
Subjective Subjective Remarks alert in nad, denies chest pain or dyspnea Objective Medications Current Medications Medications (Trade) Dose Ordered Sig/Micheal Route Start Time Stop Time Status Last Admin (Narcan Inj) 0.4 mg UNSCH PRN IV PUSH 11/10/17 14:15 (Flomax) 0.4 mg DAILY PO 11/11/17 09:00 11/18/17 09:56 (Catapres) 0.1 mg Q6H PRN PO 11/10/17 18:15 11/11/17 20:52 Aminocaproic Acid 3000 mg/Sodium Chloride 3,012 ml @ 0 mls/hr UNSCH IRRIGATION 11/13/17 14:15 11/18/17 06:07 (NS Flush) 2 ml UNSCH PRN IV FLUSH 11/13/17 16:45 (NS Flush) 2 ml BID IV FLUSH 11/13/17 21:00 11/17/17 20:56 (Aspirin Chew) 162 mg DAILY PO 11/14/17 09:00 11/18/17 09:00 (Plavix) 75 mg DAILY PO 11/14/17 09:00 11/18/17 09:56 (Coreg) 3.125 mg BID PO 11/13/17 21:00 11/18/17 09:56 (Lipitor) 10 mg HS PO 11/13/17 21:00 11/17/17 20:55 Sodium Chloride 1,000 ml @ 75 mls/hr [id number] IV 11/13/17 17:30 11/18/17 11:29 Dexmedetomidine HCl 200 mcg/ Sodium Chloride 52 ml @ 3.53 mls/hr TITRATE PRN IV 11/13/17 19:15 Nitroglycerin/ Dextrose 250 ml @ 1.5 mls/hr TITRATE PRN IV 11/13/17 19:30 11/13/17 19:30 (Zofran Inj) 4 mg Q6HR PRN IV PUSH 11/13/17 19:30 11/18/17 04:04 Potassium Chloride 100 ml @ 50 mls/hr Q2H PRN IV 11/14/17 11:45 Potassium Chloride 100 ml @ 50 mls/hr Q2H PRN IV 11/14/17 11:45 11/15/17 06:45 Potassium Chloride 100 ml @ 25 mls/hr UNSCH PRN IV 11/14/17 11:45 Potassium Chloride 100 ml @ 50 mls/hr Q2H PRN IV 11/14/17 11:45 11/16/17 02:03 Magnesium Sulfate 4 gm/Sodium Chloride 100 ml @ 50 mls/hr UNSCH PRN IV 11/14/17 11:45 (Mag-Ox) 800 mg UNSCH PRN PO 11/14/17 11:45 Magnesium Sulfate 2 gm/Sodium Chloride 100 ml @ 50 mls/hr UNSCH PRN IV 11/14/17 11:45 (K-Phos) 2,000 mg Q4H PRN PO 11/14/17 11:45 Sodium Phosphate 30 mmol/Sodium Chloride 250 ml @ 42 mls/hr UNSCH PRN IV 11/14/17 11:45 (K-Phos) 2,000 mg UNSCH PRN PO/TUBE 11/14/17 11:45 Potassium Phosphate 30 mmol/ Sodium Chloride 260 ml @ 42 mls/hr UNSCH PRN IV 11/14/17 11:45 Aminocaproic Acid 1000 mg/Sodium Chloride 1,004 ml @ 0 mls/hr UNSCH IRRIGATION 11/14/17 17:00 Future hold (Protonix Inj) 40 mg DAILY IV PUSH 11/17/17 09:00 11/18/17 09:56 (Miralax) 17 gm DAILY PO 11/17/17 11:00 11/18/17 09:55 (Reglan Inj) 5 mg Q8HR IV PUSH 11/17/17 22:00 11/18/17 06:02 Miscellaneous Information Patient in critical care unit? Ass... [id number] .XX 11/17/17 20:45 11/17/17 20:45 (Chlorhexidine 2% Cloth) 3 pack DAILY@04 TOPICAL 11/18/17 04:00 11/22/17 04:01 11/18/17 04:00 (Chlorhexidine 2% Cloth) 3 pack UNSCH PRN TOPICAL 11/17/17 20:45 11/22/17 20:32 (Dilaudid Pf Inj) 0.5 mg Q4H PRN IV 11/17/17 21:15 11/18/17 07:43 (Dilaudid Pf Inj) 0.2 mg Q4H PRN IV PUSH 11/17/17 21:15 Amiodarone HCl 450 mg/Sodium Chloride 250 ml @ 33.33 mls/ hr Q7H31M PRN IV 11/17/17 21:15 11/18/17 06:47 Acetaminophen 100 ml @ 400 mls/hr Q8HR PRN IV 11/17/17 21:15 (Duoneb Neb) 1 ampule Q6HR NEB NEB 11/17/17 22:00 11/18/17 09:08 (Albuterol Neb) 2.5 mg Q2HR NEB PRN NEB 11/17/17 21:15 11/18/17 01:46 Ceftriaxone Sodium 1000 mg/ Sodium Chloride 100 ml @ 200 mls/hr Q24H IV 11/17/17 22:00 11/17/17 21:47 (Lelia-Colace) 1 tab BID PO 11/18/17 09:00 11/18/17 09:57 (Lactulose Liq) 30 ml DAILY PO 11/18/17 09:00 11/18/17 09:56 Vital Signs / I&O Vital Signs Date Time Temp Pulse Resp B/P (MAP) Pulse Ox O2 Delivery O2 Flow Rate FiO2 11/18/17 12:00 65 11/18/17 12:00 97.6 66 18 111/56 (74) 95 11/18/17 10:00 65 11/18/17 09:09 97 Nasal Cannula 2.00 11/18/17 08:35 16 11/18/17 08:00 97.7 74 25 147/68 (94) 95 11/18/17 08:00 65 11/18/17 06:47 68 135/67 11/18/17 06:00 67 11/18/17 04:00 85 11/18/17 04:00 97.9 85 28 131/58 (82) 94 11/18/17 02:00 64 11/18/17 00:00 65 11/18/17 00:00 98.0 65 26 98/53 (68) 95 11/17/17 22:06 89 114/60 11/17/17 22:00 83 11/17/17 21:46 92 133/89 11/17/17 20:00 87 11/17/17 20:00 97.4 87 24 131/70 (90) 99 11/17/17 19:32 99 11/17/17 15:55 71 19 106/57 97 11/17/17 15:50 65 17 104/57 100 11/17/17 15:46 98.2 69 19 95/51 (66) 98 11/17/17 15:43 98.2 73 19 95/53 99 I/O 11/17/17 11/17/17 11/17/17 11/18/17 11/18/17 11/18/17 07:00 15:00 23:00 07:00 15:00 23:00 Intake Total 480 ml 10 ml 1323 ml 500 ml Output Total 5850 ml 1200 ml 1400 ml Balance -5370 ml 10 ml 123 ml -900 ml Intake Oral 480 ml IV Total 413 ml 500 ml Packed Cells 800 ml Blood Product IV Normal Saline Flush 10 ml 110 ml Output Urine Total 5850 ml 1200 ml 1400 ml # Bowel Movements 0 0 Physical Exam GENERAL: SKIN: Warm and dry. HEAD: Normocephalic. EYES: No scleral icterus. No injection or drainage. NECK: Supple, trachea midline. No JVD or lymphadenopathy. CARDIOVASCULAR: Regular rate and rhythm without murmurs, gallops, or rubs. RESPIRATORY: Breath sounds equal bilaterally. No accessory muscle use. GASTROINTESTINAL: Abdomen soft, non-tender, nondistended. MUSCULOSKELETAL: No cyanosis, or edema. BACK: Nontender without obvious deformity. No CVA tenderness. Laboratory Laboratory Tests Test 11/17/17 18:44 11/17/17 18:45 11/17/17 20:00 11/17/17 22:47 White Blood Count 19.5 TH/MM3 Red Blood Count 3.80 MIL/MM3 Hemoglobin 11.4 GM/DL Hematocrit 33.5 % Mean Corpuscular Volume 88.0 FL Mean Corpuscular Hemoglobin 30.0 PG Mean Corpuscular Hemoglobin Concent 34.1 % Red Cell Distribution Width 16.1 % Platelet Count 227 TH/MM3 Mean Platelet Volume 9.9 FL Neutrophils (%) (Auto) 54.7 % Lymphocytes (%) (Auto) 39.0 % Monocytes (%) (Auto) 5.1 % Eosinophils (%) (Auto) 0.7 % Basophils (%) (Auto) 0.5 % Neutrophils # (Auto) 10.7 TH/MM3 Lymphocytes # (Auto) 7.6 TH/MM3 Monocytes # (Auto) 1.0 TH/MM3 Eosinophils # (Auto) 0.1 TH/MM3 Basophils # (Auto) 0.1 TH/MM3 CBC Comment AUTO DIFF Differential Total Cells Counted 100 Neutrophils % (Manual) 61 % Band Neutrophils % 1 % Lymphocytes % 34 % Monocytes % 3 % Eosinophils % 1 % Neutrophils # (Manual) 12.1 TH/MM3 Nucleated Red Blood Cells 1 /100 WBC Differential Comment FINAL DIFF MANUAL Atypical Lymphocytes % Platelet Estimate NORMAL Platelet Morphology Comment NORMAL Prothrombin Time 10.9 SEC Prothromb Time International Ratio 1.1 RATIO Activated Partial Thromboplast Time 23.5 SEC Fibrinogen 539 mg/dL Blood Urea Nitrogen 19 MG/DL Creatinine 1.32 MG/DL Random Glucose 146 MG/DL Total Protein 6.0 GM/DL Albumin 2.5 GM/DL Calcium Level 7.1 MG/DL Phosphorus Level 2.5 MG/DL Magnesium Level 3.4 MG/DL Alkaline Phosphatase 68 U/L Aspartate Amino Transf (AST/SGOT) 51 U/L Alanine Aminotransferase (ALT/SGPT) 30 U/L Total Bilirubin 1.0 MG/DL Sodium Level 139 MEQ/L Potassium Level 3.2 MEQ/L Chloride Level 103 MEQ/L Carbon Dioxide Level 22.0 MEQ/L Anion Gap 14 MEQ/L Estimat Glomerular Filtration Rate 52 ML/MIN Protein Corrected Calcium 7.7 MG/DL Total Creatine Kinase 156 U/L Troponin I 18.90 NG/ML Lactic Acid Level 4.1 mmol/L Nasal Screen MRSA (PCR) MRSA NOT DETECTED Blood Gas Puncture Site RT RADIAL Blood Gas Patient Temperature 98.6 Blood Gas HCO3 22 mmol/L Blood Gas Base Excess -0.8 mmol/L Blood Gas Oxygen Saturation 91 % Arterial Blood pH 7.49 Arterial Blood Partial Pressure CO2 29 mmHg Arterial Blood Partial Pressure O2 66 mmHg Arterial Blood Oxygen Content 12.9 Vol % Arterial Blood Carboxyhemoglobin 1.4 % Arterial Blood Methemoglobin 1.3 % Blood Gas Hemoglobin 10.0 G/DL Oxygen Delivery Device RA Blood Gas Inspired Oxygen 21 % Test 11/18/17 00:30 11/18/17 01:00 11/18/17 05:14 11/18/17 05:16 Hemoglobin 10.0 GM/DL 11.2 GM/DL 11.2 GM/DL Hematocrit 29.4 % 33.3 % 32.9 % Troponin I 13.60 NG/ML 13.30 NG/ML Urine Color LIGHT-RED Urine Turbidity CLEAR Urine pH 6.0 Urine Specific [place] 1.012 Urine Protein 30 mg/dL Urine Glucose (UA) NEG mg/dL Urine Ketones TRACE mg/dL Urine Occult Blood LARGE Urine Nitrite NEG Urine Bilirubin NEG Urine Urobilinogen LESS THAN 2.0 MG/DL Urine Leukocyte Esterase SMALL Urine RBC /hpf Urine WBC 96 /hpf Urine Mucus FEW /lpf Microscopic Urinalysis Comment CATH-CULTURE IND White Blood Count 17.9 TH/MM3 Red Blood Count 3.82 MIL/MM3 Mean Corpuscular Volume 87.2 FL Mean Corpuscular Hemoglobin 29.3 PG Mean Corpuscular Hemoglobin Concent 33.6 % Red Cell Distribution Width 16.4 % Platelet Count 264 TH/MM3 Mean Platelet Volume 9.9 FL Neutrophils (%) (Auto) 77.7 % Lymphocytes (%) (Auto) 16.2 % Monocytes (%) (Auto) 5.6 % Eosinophils (%) (Auto) 0.2 % Basophils (%) (Auto) 0.3 % Neutrophils # (Auto) 13.9 TH/MM3 Lymphocytes # (Auto) 2.9 TH/MM3 Monocytes # (Auto) 1.0 TH/MM3 Eosinophils # (Auto) 0.0 TH/MM3 Basophils # (Auto) 0.1 TH/MM3 CBC Comment DIFF FINAL Differential Comment Random Cortisol 35.7 MCG/DL Test 11/18/17 09:26 Blood Urea Nitrogen 22 MG/DL Creatinine 1.39 MG/DL Random Glucose 133 MG/DL Total Protein 5.7 GM/DL Calcium Level 7.1 MG/DL Sodium Level 143 MEQ/L Potassium Level 3.7 MEQ/L Chloride Level 112 MEQ/L Carbon Dioxide Level 21.2 MEQ/L Anion Gap 10 MEQ/L Estimat Glomerular Filtration Rate 49 ML/MIN Protein Corrected Calcium 7.8 MG/DL Imaging Last 24 hours Impressions Chest X-Ray 11/18/17 0600 Signed Impressions: Service Date/Time: Saturday, November 18, 2017 03:28 - CONCLUSION: New interstitial opacities bilaterally in a pattern characteristic of interstitial pulmonary edema. Eduin Loo MD Assessment and Plan Problem List: (1) Cardiomyopathy ICD Codes: I42.9 - Cardiomyopathy, unspecified (2) CAD (coronary artery disease) ICD Codes: I25.10 - Atherosclerotic heart disease of [place] coronary artery without angina pectoris (3) Hematuria ICD Codes: R31.9 - Hematuria, unspecified Status: Acute (4) Gross hematuria ICD Codes: R31.0 - Gross hematuria Status: Acute Assessment and Plan 1.) CAD - pod# 5 primary pci, assymptomatic, continue aspirin, plavix, lipitor, coreg, dov held due ubstructive uopathy and hypotension, transfuse prn to keep hgb> 9.0, d/w nurse, hematuria improving 2.) Wide complex tachycardia - discussed in detail with family, patient, Dr Yap , Dr Del Rio, DR Hernandez, nurse at bedside; on iv amio, consult Dr Jackson; patient assymptomatic during event, trop continues to trend down 3.) I am on vacation until november, Dr Cuenca covering me Nathanael Kelley MD Nov 18, 2017 14:14
[2017-11-18 14:40] LABS: HEMATOCRIT 33.6 % (39.0-51.0); HEMOGLOBIN 11.3 GM/DL (13.0-17.0)
[2017-11-18 15:13] LABS: ALBUMIN 2.3 GM/DL (3.4-5.0); CALCIUM 7.1 MG/DL (8.5-10.1); CALCIUM-PROTEIN CORRECTED 7.7 MG/DL (8.5-10.1); CREATININE 1.3 MG/DL (0.60-1.30); MAGNESIUM 2.5 MG/DL (1.5-2.5); PHOSPHORUS 2.9 MG/DL (2.5-4.9); TOTAL BILIRUBIN ADULT 0.8 MG/DL (0.2-1.0)
[2017-11-18 15:21] LABS: TROPONIN I 10.3 NG/ML (0.02-0.05)
--- NOTE | 2017-11-18 16:07 | HHI.GIFU ---
Subjective Remarks Pt in bed, grandson at bedside. Still with no BM. Abdomen remains distended but soft. (Franny Esquivel) Objective Vitals I&O Vital Signs Date Time Temp Pulse Resp B/P (MAP) Pulse Ox O2 Delivery O2 Flow Rate FiO2 11/18/17 15:16 93 Nasal Cannula 6.00 11/18/17 14:00 65 11/18/17 12:00 65 11/18/17 12:00 97.6 66 18 111/56 (74) 95 11/18/17 10:00 65 11/18/17 09:09 97 Nasal Cannula 2.00 11/18/17 08:35 16 11/18/17 08:00 97.7 74 25 147/68 (94) 95 11/18/17 08:00 65 11/18/17 06:47 68 135/67 11/18/17 06:00 67 11/18/17 04:00 85 11/18/17 04:00 97.9 85 28 131/58 (82) 94 11/18/17 02:00 64 11/18/17 00:00 65 11/18/17 00:00 98.0 65 26 98/53 (68) 95 11/17/17 22:06 89 114/60 11/17/17 22:00 83 11/17/17 21:46 92 133/89 11/17/17 20:00 87 11/17/17 20:00 97.4 87 24 131/70 (90) 99 11/17/17 19:32 99 I/O 11/17/17 11/17/17 11/17/17 11/18/17 11/18/17 11/18/17 07:00 15:00 23:00 07:00 15:00 23:00 Intake Total 480 ml 10 ml 1323 ml 500 ml Output Total 5850 ml 1200 ml 1400 ml Balance -5370 ml 10 ml 123 ml -900 ml Intake Oral 480 ml IV Total 413 ml 500 ml Packed Cells 800 ml Blood Product IV Normal Saline Flush 10 ml 110 ml Output Urine Total 5850 ml 1200 ml 1400 ml # Bowel Movements 0 0 Laboratory Laboratory Tests Test 11/17/17 18:44 11/17/17 18:45 11/17/17 20:00 11/17/17 22:47 White Blood Count 19.5 Red Blood Count 3.80 Hemoglobin 11.4 Hematocrit 33.5 Mean Corpuscular Volume 88.0 Mean Corpuscular Hemoglobin 30.0 Mean Corpuscular Hemoglobin Concent 34.1 Red Cell Distribution Width 16.1 Platelet Count 227 Mean Platelet Volume 9.9 Neutrophils (%) (Auto) 54.7 Lymphocytes (%) (Auto) 39.0 Monocytes (%) (Auto) 5.1 Eosinophils (%) (Auto) 0.7 Basophils (%) (Auto) 0.5 Neutrophils # (Auto) 10.7 Lymphocytes # (Auto) 7.6 Monocytes # (Auto) 1.0 Eosinophils # (Auto) 0.1 Basophils # (Auto) 0.1 CBC Comment AUTO DIFF Differential Total Cells Counted 100 Neutrophils % (Manual) 61 Band Neutrophils % 1 Lymphocytes % 34 Monocytes % 3 Eosinophils % 1 Neutrophils # (Manual) 12.1 Nucleated Red Blood Cells 1 Differential Comment FINAL DIFF MANUAL Atypical Lymphocytes Platelet Estimate NORMAL Platelet Morphology Comment NORMAL Prothrombin Time 10.9 Prothromb Time International Ratio 1.1 Activated Partial Thromboplast Time 23.5 Fibrinogen 539 Blood Urea Nitrogen 19 Creatinine 1.32 Random Glucose 146 Total Protein 6.0 Albumin 2.5 Calcium Level 7.1 Phosphorus Level 2.5 Magnesium Level 3.4 Alkaline Phosphatase 68 Aspartate Amino Transf (AST/SGOT) 51 Alanine Aminotransferase (ALT/SGPT) 30 Total Bilirubin 1.0 Sodium Level 139 Potassium Level 3.2 Chloride Level 103 Carbon Dioxide Level 22.0 Anion Gap 14 Estimat Glomerular Filtration Rate 52 Protein Corrected Calcium 7.7 Total Creatine Kinase 156 Troponin I 18.90 Lactic Acid Level 4.1 Nasal Screen MRSA (PCR) MRSA NOT DETECTED Blood Gas Puncture Site RT RADIAL Blood Gas Patient Temperature 98.6 Blood Gas HCO3 22 Blood Gas Base Excess -0.8 Blood Gas Oxygen Saturation 91 Arterial Blood pH 7.49 Arterial Blood Partial Pressure CO2 29 Arterial Blood Partial Pressure O2 66 Arterial Blood Oxygen Content 12.9 Arterial Blood Carboxyhemoglobin 1.4 Arterial Blood Methemoglobin 1.3 Blood Gas Hemoglobin 10.0 Oxygen Delivery Device RA Blood Gas Inspired Oxygen 21 Test 11/18/17 00:30 11/18/17 01:00 11/18/17 05:14 11/18/17 05:16 Hemoglobin 10.0 11.2 11.2 Hematocrit 29.4 33.3 32.9 Troponin I 13.60 13.30 Urine Color LIGHT-RED Urine Turbidity CLEAR Urine pH 6.0 Urine Specific [place] 1.012 Urine Protein 30 Urine Glucose (UA) NEG Urine Ketones TRACE Urine Occult Blood LARGE Urine Nitrite NEG Urine Bilirubin NEG Urine Urobilinogen LESS THAN 2.0 Urine Leukocyte Esterase SMALL Urine RBC Urine WBC 96 Urine Mucus FEW Microscopic Urinalysis Comment CATH-CULTURE IND White Blood Count 17.9 Red Blood Count 3.82 Mean Corpuscular Volume 87.2 Mean Corpuscular Hemoglobin 29.3 Mean Corpuscular Hemoglobin Concent 33.6 Red Cell Distribution Width 16.4 Platelet Count 264 Mean Platelet Volume 9.9 Neutrophils (%) (Auto) 77.7 Lymphocytes (%) (Auto) 16.2 Monocytes (%) (Auto) 5.6 Eosinophils (%) (Auto) 0.2 Basophils (%) (Auto) 0.3 Neutrophils # (Auto) 13.9 Lymphocytes # (Auto) 2.9 Monocytes # (Auto) 1.0 Eosinophils # (Auto) 0.0 Basophils # (Auto) 0.1 CBC Comment DIFF FINAL Differential Comment Random Cortisol 35.7 Test 11/18/17 09:26 11/18/17 13:24 Blood Urea Nitrogen 22 21 Creatinine 1.39 1.30 Random Glucose 133 98 Total Protein 5.7 6.0 Calcium Level 7.1 7.1 Sodium Level 143 142 Potassium Level 3.7 4.5 Chloride Level 112 112 Carbon Dioxide Level 21.2 20.0 Anion Gap 10 10 Estimat Glomerular Filtration Rate 49 53 Protein Corrected Calcium 7.8 7.7 Hemoglobin 11.3 Hematocrit 33.6 Albumin 2.3 Phosphorus Level 2.9 Magnesium Level 2.5 Alkaline Phosphatase 66 Aspartate Amino Transf (AST/SGOT) 49 Alanine Aminotransferase (ALT/SGPT) 25 Total Bilirubin 0.8 Troponin I 10.30 Date/Time Source Procedure Growth Status 11/18/17 00:30 Blood Peripheral Aerobic Blood Culture Pending Received 11/18/17 00:30 Blood Peripheral Anaerobic Blood Culture Pending Received 11/18/17 01:00 Urine Catheterized Urine Urine Culture Pending Received Imaging Last Impressions Chest X-Ray 11/18/17 0600 Signed Impressions: Service Date/Time: Saturday, November 18, 2017 03:28 - CONCLUSION: New interstitial opacities bilaterally in a pattern characteristic of interstitial pulmonary edema. Eduin Loo MD Abdomen X-Ray 11/17/17 0000 Signed Impressions: Service Date/Time: Friday, November 17, 2017 08:42 - CONCLUSION: Nonspecific bowel gas pattern with stool in the colon. No evidence to suggest mechanical obstruction. Amador Leiva MD Abdomen/Pelvis CT 11/10/17 1210 Signed Impressions: Service Date/Time: Friday, November 10, 2017 12:47 - CONCLUSION: 1. Radiopaque material within the urinary bladder likely hematoma. Underlying mass cannot be excluded. 2. Mild wall thickening of the urinary bladder. 3. Enlarged prostate. 4. Right inguinal hernia containing small bowel loops without obstruction. 5. Diverticulosis without diverticulitis. 6. Small hiatal hernia. Mark Fitch MD Physical Exam HEENT: Normocephalic; atraumatic CHEST: Tachypneic, oxi mask CARDIAC: RRR ABDOMEN: Distended, soft, nontender, bowel sounds active SKIN: Normal; no rash; no jaundice. CIVIL ENGINEER'S AIDE: Alert and oriented x 3 (Franny Esquivel) Assessment and Plan Plan Assessment: - Ileus- Reports of no BM in 5 days. KUB noted (11/17) --> Nonspecific bowel gas pattern with stool in the colon. No evidence to suggests mechanical obstruction. - Anemia- normocytic- Drop in H/H overnight. Hgb was 8.5 yesterday, dropped to 6.7 this morning. 2 U PRBCs ordered, one transfusing during my exam. Given history of hematuria and CT consistent with hematoma in bladder, likely the cause. Per RN urine is increasingly red in color today. Pt is S/P cystoscopy with irrigation. No obvious source of GIB, pt denies BM in five days, no emesis. Has never had colonoscopy, he is unsure if he has ever had EGD. - Transaminitis- LFTS WNL on admission, elevated on 11/13 likely secondary to hypotension shocked liver. Denies ETOH and history of liver issues. - Acid reflux, belching- family has been giving pt Alondra Leslie to help with symptoms. Protonix - STEMI S/P PCI with stent placement on 11/13- now on Plavix and ASA per cardiology (11/18) --> [place] [facility] [place] to episode of reperfusion rhythm/V tach. H/H currently 11.3/33.6 S/P 2 U PRBCs yesterday. Hemoccult stool pending. No obvious source of GIB. Pt remains to unstable for endoscopic procedures. Received Relistor yesterday, currently on Lelia-Colace, Lactulose, Reglan, and MiraLAX. Per RN catheter was obstructed causing bladder distention which is now resolved. Will repeat KUB in AM. Plan: - High risk for GI procedures given recent PCI with stent- now on Plavix and ASA- will order Hemoccult to assess for bleeding - MiraLAX - Reglan 5 mg IV q 8 hr - Repeat KUB - Monitor H/H - Notify GI of active bleeding - Hemoccult stool - Protonix - Further recommendations to follow based on clinical course and results of above Pt has been seen and examined by myself and Dr. Buitrago and this note is written on his behalf (Franny Esquivel) Physician Comments Plan as above, will check KUB and adjust medications accordingly. Will follow up with you. (Wendi Buitrago MD) Franny Esquivel Nov 18, 2017 16:07 Wendi Buitrago MD Nov 19, 2017 09:26
--- NOTE | 2017-11-18 16:44 | RADRPT ---
EXAM DATE/TIME: 11/18/2017 16:18 [place] COMPARISON: ABDOMEN KUB ONLY, November 17, 2017, 8:42. INDICATIONS : Evalaute for ileus. Abdominal distention. MEDICAL HISTORY : Hypertension. SURGICAL HISTORY : Prostatectomy. ENCOUNTER: Subsequent ACUITY: 1 week PAIN SCORE: 3/10 LOCATION: Abdomen FINDINGS: 2 supine frontal views of the abdomen reveal gas distended loops of large and small bowel. This is si milar to the prior study. Gas is seen to the level of the rectal wall. No gross pneumoperitoneum. No organomegaly. Renal contours not well seen. The degenerative spine. CONCLUSION: Unchanged bowel gas pattern. Jesus Deal Jr., MD on November 18, 2017 at 16:41 Board Certified Radiologist. This report was verified electronically.
[2017-11-18] MEDS ORDERED: BISACODYL 10 MG SUPP RECTAL ONE (16:45)
--- NOTE | 2017-11-18 19:53 | HHI.CCPN ---
Subjective Remarks/Hospital Course 11/13: Patient is an 82-year-old male with past medical history of BPH, tobacco abuse who presented 11/12/2017 with dysuria, hematuria and urinary retention. Patient was admitted to the hospitalist service and underwent cystoscopy with fulguration by Dr. Lee. Was also placed on continuous bladder irrigation. Patient developed chest pain today a.m. EKG showed significant anterolateral ST elevation troponin bumped to 6.5 emergently taken to cardiac catheterization by Dr. Kelley. Received PCI, LAD stent,. Was loaded with 600 mg Plavix and was started on Aggrastat. Post stenting went to [facility] developed hypotension and was moved to the CVICU. Initially seen by Dr. Ryan patient had gross hematuria so O negative blood 2 units were ordered stat. I evaluated the patient in CVICU. He is persistently hypotensive receiving first 2 units of blood. Started on 1 mcg/min Levophed. Remains borderline hypotensive. Patient has significant gross hematuria, and is on CBI. He is anxious and complains about 9 out of 10 chest pain, I am starting on nitro drip. Patient may need IABP pain not resolved with nitro and Dilaudid/ Morphine. I have discussed with Dr. Kelley. 11/14: Resting comfortably in bed. Received 3 units PRBCs yesterday. Chest pain resolved currently. CBI with Amicar ongoing. Minimal pink tinged CBI fluid noted. 11/15: Resting comfortably. Denies SOB or abd pain. No chest pain currently. Reconsult 11/17: Patient 10 minute episode of reperfusion rhythm/V. tach. Potassium is 3.2. Magnesium 1.8 this a.m. Given 2 g mag sulfate IV 1 now. We placed on amiodarone drip. Discussed with Dr. Kelley will transfer to [facility]. 11/18: Late entry note. Patient was noted to be hypokalemic this a.m. repletion provided. Patient denies any chest pain. Patient remains in sinus rhythm, amiodarone infusion continued. Family at bedside requesting possible transfer to another facility secondary to disappointment and care being provided. Case management consult initiated. EPS consulted, Dr. Jackson. Discussed with , family's request and plan of treatment. Objective Vital Signs Date Time Temp Pulse Resp B/P (MAP) Pulse Ox O2 Delivery O2 Flow Rate FiO2 11/18/17 19:12 93 Non-Rebreather 15.00 100 11/18/17 18:00 65 11/18/17 16:00 98.6 26 131/69 (89) Intake and Output 11/18/17 11/18/17 11/19/17 08:00 16:00 00:00 Intake Total 400 ml Output Total 1400 ml Balance -1000 ml Result Diagram: 11/18/17 1324 11/18/17 1324 Other Results Laboratory Tests Test 11/17/17 22:47 Blood Gas Puncture Site RT RADIAL Blood Gas Patient Temperature 98.6 Blood Gas HCO3 22 mmol/L (22-26) Blood Gas Base Excess -0.8 mmol/L (-2-2) Blood Gas Oxygen Saturation 91 % (90-100) Arterial Blood pH 7.49 (7.380-7.420) Arterial Blood Partial Pressure CO2 29 mmHg (38-42) Arterial Blood Partial Pressure O2 66 mmHg (61-120) Arterial Blood Oxygen Content 12.9 Vol % (12.0-20.0) Arterial Blood Carboxyhemoglobin 1.4 % (0-4) Arterial Blood Methemoglobin 1.3 % (0-2) Blood Gas Hemoglobin 10.0 G/DL (12.0-16.0) Oxygen Delivery Device RA Blood Gas Inspired Oxygen 21 % Imaging Last Impressions Chest X-Ray 11/18/17 0600 Signed Impressions: Service Date/Time: Saturday, November 18, 2017 03:28 - CONCLUSION: New interstitial opacities bilaterally in a pattern characteristic of interstitial pulmonary edema. Eduin Loo MD Abdomen X-Ray 11/18/17 0000 Signed Impressions: Service Date/Time: Saturday, November 18, 2017 16:18 - CONCLUSION: Unchanged bowel gas pattern. Jesus Deal Jr., MD Abdomen/Pelvis CT 11/10/17 1210 Signed Impressions: Service Date/Time: Friday, November 10, 2017 12:47 - CONCLUSION: 1. Radiopaque material within the urinary bladder likely hematoma. Underlying mass cannot be excluded. 2. Mild wall thickening of the urinary bladder. 3. Enlarged prostate. 4. Right inguinal hernia containing small bowel loops without obstruction. 5. Diverticulosis without diverticulitis. 6. Small hiatal hernia. Mark Fitch MD Last Impressions Abdomen X-Ray 11/17/17 0000 Signed Impressions: Service Date/Time: Friday, November 17, 2017 08:42 - CONCLUSION: Nonspecific bowel gas pattern with stool in the colon. No evidence to suggest mechanical obstruction. Amador Leiva MD Chest X-Ray 11/14/17 0650 Signed Impressions: Service Date/Time: Tuesday, November 14, 2017 07:29 - CONCLUSION: Normal examination. Sudarshan Espino MD Abdomen/Pelvis CT 11/10/17 1210 Signed Impressions: Service Date/Time: Friday, November 10, 2017 12:47 - CONCLUSION: 1. Radiopaque material within the urinary bladder likely hematoma. Underlying mass cannot be excluded. 2. Mild wall thickening of the urinary bladder. 3. Enlarged prostate. 4. Right inguinal hernia containing small bowel loops without obstruction. 5. Diverticulosis without diverticulitis. 6. Small hiatal hernia. Mark Fitch MD Procedures Catheterization Objective Remarks GENERAL: Well-nourished, well-developed patient. Laying in bed, no apparent distress SKIN: Skin assessment warm/dry. HEAD: Normocephalic. EYES: Pallor+ NECK: Supple, trachea midline. + JVD CARDIOVASCULAR: Regular rate and rhythm S1, S2. No S4. Without murmurs, RESPIRATORY: Breath sounds equal bilaterally. No accessory muscle use. GASTROINTESTINAL: Abdomen soft, nondistended. Right inguinal hernia : CBI ongoing with clear urine on return. MUSCULOSKELETAL: No cyanosis, or edema. NEURO: Patient is awake and alert oriented, No obvious focal deficit. A/P Assessment and Plan NEURO/PSYCH: Ofirmev 1 g IV every 8 hours as needed Hydromorphone 0 point to 0.5 mg IV every 4 hours as needed pain RESP: -Nasal cannula oxygen to maintain saturations greater than equal to 92% Incentive spirometry while awake Albuterol/ipratropium aerosols every 6 hours with albuterol aerosols every 2 hours as needed dyspnea CV: STEMI s/p LAD Stent V. tach Elevated troponin Lactic acidosis -Continue maintenance IV fluids normal saline at 75 cc an hour with lactic acidosis. Serial lactates until cleared Currently on amiodarone drip. Received 2 g mag sulfate. -On aspirin 162 mg daily with clopidogrel 75 mg daily per cardiology -Resumed carvedilol 3.125 mg p.o. twice daily Atorvastatin 10 mg p.o. daily for dyslipidemia 2-D echo with low LVEF 35-40%. Anterior lateral wall akinesia. Consider BOBBY inhibitor. Defer to cardiology 11/18 Consult EPS-pulmonary recommendation GI: Constipation Elevated AST Hypoalbuminemia Right inguinal hernia Diverticulosis Evaluated by gastroenterology. CT abdomen/pelvis earlier this hospitalization revealed right inguinal hernia without signs of strangulation, hiatal hernia, diverticulosis without diverticulitis and BPH Pantoprazole for GI prophylaxis 1 dose of methylnaltrexone [address] abdomen/pelvis- F/U results Bowel regimen- Bisacodyl suppository x 1 today 11/18 : Gross hematuria-resolved Status post cystoscopy and fulguration -Monitor renal function closely. Continuous bladder irrigation with Amicar per urology -Further hematuria and CBI management per Jesus with aminocaproic acid Continue tamsulosin 0.4 mg p.o. daily ID: Continue IV ceftriaxone with 3 UTI Repeat UA 11/17-follow up urine culture results HEME: Leukocytosis Normocytic anemia currently 11.4 -Status post 5 units PRBCs since admission -Monitor CBC CMP coags fibrinogen closely -Transfuse to keep hemoglobin more than [address] Kelley's request -Follow-up Hemoccult results ENDO/FEN: Hypo-potassium 60 milliequivalent potassium chloride IV 1 now. Recheck in a.m. -Electrolyte replacement per protocol TSH normal PROPH: -Bilateral lower extremity SCDs. Chemical DVT prophylaxis is contraindicated at this time. Continue SCDs LINES: -Utilize peripheral IVs my billing statement This patient remains critically ill with one or more organ systems which are or may become a threat to life. I have spent in excess of 30 minutes discontinuously in the care and management of this patient. This time is exclusive of procedures, and includes, but is not limited to, evaluation of the patient, review of the medical record, discussions with family, consultants, nursing staff, or respiratory therapy, and documentation in the medical record. Physician Tori Wilcox MD Nov 18, 2017 19:53
[2017-11-18 20:18] LABS: HEMATOCRIT 31.4 % (39.0-51.0); HEMOGLOBIN 11.3 GM/DL (13.0-17.0)
[2017-11-18] MEDS: cefTRIAXone INJ 1,000 MG in SODIUM CHLORIDE 0.9% INJ 100 ML IV SCH (21:36)
[2017-11-18] MEDS: ATORVASTATIN 10 MG TAB PO SCH (21:37)
[2017-11-19] VITALS (15 sets, daily range): BP systolic 110–156; BP diastolic 60–83; PULSE 79–95; RESP 30–40; TEMP 97.3–99; O2SAT 90–98
[2017-11-19] MEDS: RESP: ALBUTEROL 2.5 MG/IPRATROPIUM 0.5 MG NEB (SCH) NEB ×4 (03:09→22:00)
[2017-11-19] MEDS: CHLORHEXIDINE GLUCONATE 2 % 1 PACK (2 CLOTHS)(taper/protocol) TOPICAL SCH (04:00)
--- NOTE | 2017-11-19 04:39 | RADRPT ---
EXAM DATE/TIME: 11/19/2017 03:30 [facility] COMPARISON: CHEST SINGLE AP, November 18, 2017, 3:28. INDICATIONS : Shortness of breath, possible pulmonary disease. MEDICAL HISTORY : Hypertension. SURGICAL HISTORY : Prostatectomy. ENCOUNTER: Subsequent ACUITY: 1 week PAIN SCORE: 0/10 LOCATION: Bilateral chest FINDINGS: Portable AP view of the chest demonstrates a normal-sized cardiac silhouette with calcification of th e aorta. There is perihilar airspace consolidation and mild right lower lung zone airspace consolidat ion. Slight blunting of the right costophrenic sulcus is present. There is no pneumothorax. Bones dem onstrate no acute finding. CONCLUSION: Progression of bilateral pulmonary disease in a pattern characteristic of interstitial and airspace p ulmonary edema. There is a possible small right pleural effusion. Eduin Loo MD on November 19, 2017 at 4:37 Board Certified Radiologist. This report was verified electronically.
[2017-11-19 05:30] LABS: INTERNATIONAL NORMALIZED RATIO 1.2 RATIO; PROTHROMBIN TIME - PATIENT 12.4 SEC (9.8-11.6)
[2017-11-19] MEDS: AMINOCAPROIC ACID INJ 3,000 MG in SODIUM CHLORIDE 0.9% IRR BAG 3,000 ML IRRIGATION SCH ×2 (05:51→23:05)
[2017-11-19] MEDS: METOCLOPRAMIDE HCL 10 MG/2 ML VIAL IV PUSH SCH ×3 (05:55→20:29)
[2017-11-19 06:14] LABS: ALBUMIN 1.9 GM/DL (3.4-5.0); CALCIUM 6.8 MG/DL (8.5-10.1); CALCIUM-PROTEIN CORRECTED 7.9 MG/DL (8.5-10.1); CREATININE 1.04 MG/DL (0.60-1.30); MAGNESIUM 2.3 MG/DL (1.5-2.5); PHOSPHORUS 2.7 MG/DL (2.5-4.9); TOTAL BILIRUBIN ADULT 0.5 MG/DL (0.2-1.0)
[2017-11-19 08:01] LABS: HEMATOCRIT 26.8 % (39.0-51.0); HEMOGLOBIN 9.3 GM/DL (13.0-17.0)
--- NOTE | 2017-11-19 08:58 | HHI.PR ---
Subjective Patient symptoms today Pt seen and examined. Urine clearing with occasional henrik colored urine. Going for CT Abdomen this AM due to abdominal distension. No abdominal pain. Objective Vital Signs Vital Signs Date Time Temp Pulse Resp B/P (MAP) Pulse Ox O2 Delivery O2 Flow Rate FiO2 11/19/17 08:14 97 Partial Rebreather 11/19/17 06:00 79 11/19/17 04:00 98.2 84 35 130/62 (84) 95 11/19/17 04:00 84 11/19/17 03:10 95 Non-Rebreather 15.00 11/19/17 02:00 80 11/19/17 00:00 90 11/19/17 00:00 99.0 90 31 156/83 (107) 91 11/18/17 23:51 90 Non-Rebreather 14.00 11/18/17 22:00 79 11/18/17 21:35 81 140/75 11/18/17 20:00 98.0 92 40 128/70 (89) 94 11/18/17 20:00 92 11/18/17 19:12 93 Non-Rebreather 15.00 100 11/18/17 18:00 65 11/18/17 16:00 98.6 75 26 131/69 (89) 88 11/18/17 16:00 65 11/18/17 15:16 93 Nasal Cannula 6.00 11/18/17 14:00 65 11/18/17 12:00 65 11/18/17 12:00 97.6 66 18 111/56 (74) 95 11/18/17 10:00 65 11/18/17 09:09 97 Nasal Cannula 2.00 Intake & Output 11/19/17 11/19/17 07:00 19:00 Intake Total 350 ml Output Total 1950 ml Balance -1600 ml IV Total 350 ml Output Urine Total 1950 ml # Bowel Movements 0 Result Diagram: 11/19/17 0730 11/19/17 0505 Imaging Last 24 hours Impressions Chest X-Ray 11/19/17 0600 Signed Impressions: Service Date/Time: November 03:30 - CONCLUSION: Progression of bilateral pulmonary disease in a pattern characteristic of interstitial and airspace pulmonary edema. There is a possible small right pleural effusion. Eduin Loo MD Objective Remarks Abd:soft,nt,nd Hernández: few clots irrigated; now clear 11/13/17 Abd:soft,nt,nd Hernández: irrigated to clear at bedside. 11/14 Abd:soft,nt,nd Hernández: gross hematuria on Amicar CBI 11/15 Abd:soft,nt,nd Hernández: gross hematuria is now clear on Amicar CBI; will titrate down 11/16 Abd:soft,nt,nd Hernández: clear urine 11/17 Abd:soft,nt,nd Hernández: urine clear Titrate CBI to off 11/18 Abd:soft,nt,nt Hernández irrigated at bedside and clot was evacuated and 500-600cc drained Titrate CBI to off. 11/19 Abd:soft,nt, distended Hernández: urine pink to clear Medications and IVs Current Medications Medications (Trade) Dose Ordered Sig/Micheal Route Start Time Stop Time Status Last Admin (Narcan Inj) 0.4 mg UNSCH PRN IV PUSH 11/10/17 14:15 (Flomax) 0.4 mg DAILY PO 11/11/17 09:00 11/18/17 09:56 (Catapres) 0.1 mg Q6H PRN PO 11/10/17 18:15 11/11/17 20:52 Aminocaproic Acid 3000 mg/Sodium Chloride 3,012 ml @ 0 mls/hr UNSCH IRRIGATION 11/13/17 14:15 11/19/17 05:51 (NS Flush) 2 ml UNSCH PRN IV FLUSH 11/13/17 16:45 (NS Flush) 2 ml BID IV FLUSH 11/13/17 21:00 11/18/17 21:37 (Aspirin Chew) 162 mg DAILY PO 11/14/17 09:00 11/18/17 09:00 (Plavix) 75 mg DAILY PO 11/14/17 09:00 11/18/17 09:56 (Coreg) 3.125 mg BID PO 11/13/17 21:00 11/18/17 09:56 (Lipitor) 10 mg HS PO 11/13/17 21:00 11/18/17 21:37 Sodium Chloride 1,000 ml @ 42 mls/hr [id number] IV 11/13/17 17:30 11/18/17 11:29 Nitroglycerin/ Dextrose 250 ml @ 1.5 mls/hr TITRATE PRN IV 11/13/17 19:30 11/13/17 19:30 (Zofran Inj) 4 mg Q6HR PRN IV PUSH 11/13/17 19:30 11/18/17 04:04 Potassium Chloride 100 ml @ 50 mls/hr Q2H PRN IV 11/14/17 11:45 Potassium Chloride 100 ml @ 50 mls/hr Q2H PRN IV 11/14/17 11:45 11/15/17 06:45 Potassium Chloride 100 ml @ 25 mls/hr UNSCH PRN IV 11/14/17 11:45 Potassium Chloride 100 ml @ 50 mls/hr Q2H PRN IV 11/14/17 11:45 11/16/17 02:03 Magnesium Sulfate 4 gm/Sodium Chloride 100 ml @ 50 mls/hr UNSCH PRN IV 11/14/17 11:45 (Mag-Ox) 800 mg UNSCH PRN PO 11/14/17 11:45 Magnesium Sulfate 2 gm/Sodium Chloride 100 ml @ 50 mls/hr UNSCH PRN IV 11/14/17 11:45 (K-Phos) 2,000 mg Q4H PRN PO 11/14/17 11:45 Sodium Phosphate 30 mmol/Sodium Chloride 250 ml @ 42 mls/hr UNSCH PRN IV 11/14/17 11:45 (K-Phos) 2,000 mg UNSCH PRN PO/TUBE 11/14/17 11:45 Potassium Phosphate 30 mmol/ Sodium Chloride 260 ml @ 42 mls/hr UNSCH PRN IV 11/14/17 11:45 Aminocaproic Acid 1000 mg/Sodium Chloride 1,004 ml @ 0 mls/hr UNSCH IRRIGATION 11/14/17 17:00 Future hold (Protonix Inj) 40 mg DAILY IV PUSH 11/17/17 09:00 11/18/17 09:56 (Miralax) 17 gm DAILY PO 11/17/17 11:00 11/18/17 09:55 (Reglan Inj) 5 mg Q8HR IV PUSH 11/17/17 22:00 11/19/17 05:55 Miscellaneous Information Patient in critical care unit? Ass... [id number] .XX 11/17/17 20:45 11/17/17 20:45 (Chlorhexidine 2% Cloth) 3 pack DAILY@04 TOPICAL 11/18/17 04:00 11/22/17 04:01 11/19/17 04:00 (Chlorhexidine 2% Cloth) 3 pack UNSCH PRN TOPICAL 11/17/17 20:45 11/22/17 20:32 (Dilaudid Pf Inj) 0.5 mg Q4H PRN IV 11/17/17 21:15 11/18/17 07:43 (Dilaudid Pf Inj) 0.2 mg Q4H PRN IV PUSH 11/17/17 21:15 Amiodarone HCl 450 mg/Sodium Chloride 250 ml @ 33.33 mls/ hr Q7H31M PRN IV 11/17/17 21:15 11/18/17 21:35 Acetaminophen 100 ml @ 400 mls/hr Q8HR PRN IV 11/17/17 21:15 (Duoneb Neb) 1 ampule Q6HR NEB NEB 11/17/17 22:00 11/19/17 08:13 (Albuterol Neb) 2.5 mg Q2HR NEB PRN NEB 11/17/17 21:15 11/18/17 01:46 Ceftriaxone Sodium 1000 mg/ Sodium Chloride 100 ml @ 200 mls/hr Q24H IV 11/17/17 22:00 11/18/17 21:36 (Lelia-Colace) 1 tab BID PO 11/18/17 09:00 11/18/17 21:36 (Lactulose Liq) 30 ml DAILY PO 11/18/17 09:00 11/18/17 09:56 (Melatonin) 5 mg HS PRN PO 11/18/17 20:00 Calcium Gluconate 1 gm/Dextrose 110 ml @ 110 mls/hr ONCE ONCE IV 11/19/17 09:00 11/19/17 09:59 Assessment and Plan Assessment and Plan 82 y.o male with gross hematuria Hematuria clears with manual irrigation Irrigate hernández Q 2 hours If persists, will need cysto. If clears can be discharged with hernández in place and perform void trial next week. 11/13/17 82 y.o male with gross hematuria s/p cysto with fulguration Hernández irrigated to clear this AM If urine remains clear can d/c home with hernández this afternoon and f/u next Wed. AM for void trial in office. 11/14 82 y.o male s/p NSTEMI yesterday s/p cardiac stent on Plavix with h/o prostatic bleeding s/p cysto/fulguration Will need to continue Amicar CBI Irrigate hernández prn clots Follow Hgb Creatinine improved. 11/15 82 y.o male s/p NSTEMI with h/o prostatic bleeding Slowly titrate down the Amicar Follow Hgb Continue Plavix 11/16 82 y.o male s/p NSTEMI with h/o prostatic bleeding Hematuria resolving Titrate Amicar drip to off as urine remains clear. 11/17 82 y.o male s/p NSTEMI with h/o prostatic bleeding Hgb dropped overnight from 8.5 to 6.7. Will repeat H/H stat If true, transfuse 2 units Guiac stools 11/18 82 y.o male s/p NSTEMI with h/o prostatic bleeding with recent run of V-tach Hernández irrigated and clot removed. Urine now draining clear Titrate Amicar CBI to off as urine remains clear 11/19 82 y.o male s/p cysto/fulguration with NSTEMI and run of V-tach CT scan of abdomen/pelvis today Amicar CBI on slow rate; no more evidence of active bleeding from tract Rafita Lee DO Nov 19, 2017 08:58
[2017-11-19] MEDS: LACTULOSE SYRUP 20 GM/30 ML CUP PO SCH (09:00)
[2017-11-19] MEDS: POLYETHYLENE GLYCOL 17 GM PKG PO SCH (09:00)
[2017-11-19] MEDS ORDERED: CALCIUM GLUCONATE INJ 1 GM in DEXTROSE 5% IN WATER 100ML INJ 100 ML IV ONE ×2 (09:00)
--- NOTE | 2017-11-19 09:30 | RADRPT ---
EXAM DATE/TIME: 11/19/2017 09:06 [facility] COMPARISON: CT ABDOMEN & PELVIS W/O CONTRAST, November 10, 2017, 12:47. INDICATIONS : Nausea. ORAL CONTRAST: No oral contrast ingested. RADIATION DOSE: 9.93 CTDIvol (mGy) MEDICAL HISTORY : Hypertension. Benign prostatic hyperplasia (BPH). SURGICAL HISTORY : Prostatectomy. ENCOUNTER: Initial ACUITY: 1 day PAIN SCALE: 0/10 LOCATION: Bilateral lower quadrant TECHNIQUE: Volumetric scanning of the abdomen and pelvis was performed. Using automated exposure control and ad justment of the mA and/or kV according to patient size, radiation dose was kept as low as reasonably achievable to obtain optimal diagnostic quality images. DICOM format image data is available electro nically for review and comparison. The lack of IV contrast limits the diagnosis for certain organ pa thology. FINDINGS: LOWER LUNGS: There are new Bilateral pleural effusions. There are new bilateral pulmonary infiltrates in both lung bases. LIVER: Homogeneous density without lesion. There is no dilation of the biliary tree. No calcified gallston es. SPLEEN: Normal size without lesion. PANCREAS: Within normal limits. KIDNEYS: Normal in size and shape. There is no mass, stone, or hydronephrosis. Stable 3.4 cm cyst upper pole right kidney. ADRENAL GLANDS: Within normal limits. VASCULAR: There is no aortic aneurysm. BOWEL/MESENTERY: The stomach, small bowel, and colon demonstrate no acute abnormality. There is no free intraperitone al air or fluid. There is stool throughout the colon. No abnormal dilatation is seen. There is some a ir seen throughout the colon. The small bowel is nondilated. No inflammatory changes are demonstrated . Right inguinal hernia containing a loop of colon and small bowel without obstruction. ABDOMINAL WALL: Within normal limits. RETROPERITONEUM: There is no lymphadenopathy. BLADDER: The bladder continues to have an abnormal appearance with mixed density within the urinary bladder. T here is air in the urinary bladder. There is a Ma catheter in place. The balloon appears to be inf lated within the prostatic urethra. Prostate is diffusely enlarged measuring 7.8 cm. REPRODUCTIVE: The prostate is diffusely enlarged measuring 7.8 cm. INGUINAL: Right inguinal hernia containing a loop of colon and small bowel without obstruction. No significant change compared to the prior exam. MUSCULOSKELETAL: Within normal limits for patient age. CONCLUSION: 1. The bowel gas pattern remains within normal limits. No mechanical obstruction. 2. There is a right inguinal hernia containing loops of small and large bowel without obstruction. 3. There is a Ma catheter in urinary bladder. However, the balloon on the Ma catheter appears t o be inflated within the prostatic urethra. This may need to be adjusted. 4. There continues to be mixed density within the urinary bladder as well as air. This is not signifi cantly changed compared to the prior exam. 5. Diffuse enlargement of the prostate gland. 6. New bilateral pleural effusions as well as bibasilar infiltrates. Amador Leiva MD on November 19, 2017 at 9:21 Board Certified Radiologist. This report was verified electronically.
[2017-11-19] MEDS: CLOPIDOGREL 75 MG TAB PO SCH (11:21)
[2017-11-19] MEDS: DOCUSATE SODIUM 50 MG/SENNA 8.6 MG TAB PO SCH ×2 (11:21→20:29)
[2017-11-19] MEDS: CARVEDILOL 3.125 MG TAB PO SCH ×2 (11:21→20:49)
[2017-11-19] MEDS: TAMSULOSIN HCL 0.4 MG CAP PO SCH (11:22)
[2017-11-19] MEDS: ASPIRIN 81 MG CHEW TAB PO SCH (11:22)
[2017-11-19] MEDS: SODIUM CHLORIDE 0.9% FLUSH 10 ML FLUSH IV FLUSH SCH ×2 (11:23→20:30)
[2017-11-19] MEDS: PANTOPRAZOLE SODIUM 40 MG VIAL IV PUSH SCH (11:23)
[2017-11-19] MEDS ORDERED: FUROSEMIDE 40 MG/4 ML VIAL IV PUSH ONE ×2 (11:25→21:00)
[2017-11-19 12:32] LABS: AUTOMATED NEUTROPHIL # 14.4 TH/MM3 (1.8-7.7); BASOPHIL % 0.1 % (0.0-2.0); EOSINOPHIL % 0.1 % (0.0-4.0); HEMATOCRIT 28.5 % (39.0-51.0); HEMOGLOBIN 9.6 GM/DL (13.0-17.0); LYMPH % 5.7 % (9.0-44.0); LYMPHOCYTE # 0.9 TH/MM3 (1.0-4.8); MEAN CELL VOLUME 88.4 FL (80.0-100.0); MEAN CORPUSCULAR HEMOGLOBIN 29.8 PG (27.0-34.0); MEAN CORPUSCULAR HGB CONC 33.8 % (32.0-36.0); MEAN PLATELET VOLUME 9.4 FL (7.0-11.0); MONO % 6.2 % (0.0-8.0); NEUT % 87.9 % (16.0-70.0); PLATELET COUNT 226 TH/MM3 (150-450); RED BLOOD COUNT 3.22 MIL/MM3 (4.50-5.90); RED CELL DISTRIBUTION WIDTH 16.4 % (11.6-17.2); WHITE BLOOD COUNT 16.4 TH/MM3 (4.0-11.0)
--- NOTE | 2017-11-19 13:02 | MB ---
cc: Nirav Jackson MD,Nathanael Varma MD DATE OF CONSULT: 11/18/2017 REASON FOR CONSULTATION: Congestive heart failure, nonsustained ventricular tachycardia. HISTORY OF PRESENT ILLNESS: Mr. Rodriguez is an 82-year-old gentleman with myocardial infarction, previous left heart catheterization, and PTCA to LAD by Dr. Kelley. Troponin was very high. During hospitalization, there was some episode of wide complex arrhythmia that was asymptomatic. The patient was transferred back to intensive care unit. His ejection fraction is around 25-40%. I was consulted for evaluation and management. His chart was reviewed. The patient was evaluated. Mostly permission obtained from daughter, and also from the patient. ALLERGIES: NONE. SOCIAL HISTORY: The patient denies smoking and drinking. FAMILY HISTORY: Noncontributory to his current medical condition. MEDICATIONS: Gentleman is on ceftriaxone. He is on magnesium. He is on potassium. He is on albuterol inhaler. He is on aspirin, Lipitor 10 mg a day, Coreg 3.125 mg a day, Plavix. REVIEW OF SYSTEMS: The patient refers feeling tired, some shortness of breath. PHYSICAL EXAMINATION: GENERAL: Alert, fully oriented. VITAL SIGNS: Blood pressure 121/69, pulse 92, respiratory rate 20. LUNGS: Ventilated. CARDIOVASCULAR: S1, S2 regular. No gallop, no murmur. ABDOMEN: Soft, no mass, no bruits. EXTREMITIES: No edema. ELECTROCARDIOGRAM: Sinus rhythm. Anterior ST elevation. LABORATORY DATA: Hemoglobin is 11.4, white blood cells 17.9, potassium is 4.5. Troponin 10.30. ASSESSMENT AND RECOMMENDATIONS: Mr. Rodriguez's condition is very critical. When I got to the room, I was received by the daughter, who told me everything was wrong in this hospital and the nurse was not treating her father properly. She wants to transfer, is glad they were about to save his life but there was some issue with his bladder irrigation and apparently somebody was not watching that. I explained to her this an excellent center; the people in the intensive care unit are very experienced and they know what they are doing. I thing it is a team that can compare to any university setting. I am not sure if she was satisfied with my answer. I discussed the case at length with her. I did explain to her that Mr. Rodriguez has a PTCA plus stent to LAD. He has only a couple of beats of wide complex tachyarrhythmia. He is on optimal medical management. Medications can be reevaluated, but at this point he is so frail and his condition is so critical, the gentleman can barely breathe in a sitting position. This is a gentleman that can be intubated at any time. The best approach is medical management. When the gentleman is stable, electrophysiological studies can be obtained or a defibrillator vest can be placed. In case she wants to transfer the patient, she can discuss that with the attending physician. In the meantime, I will modify some medication and see the patient in the morning if necessary. I will not be available after tomorrow afternoon for further management. As mentioned before, the gentleman's condition is very critical; his prognosis is guarded. MD QUEENIE iEd/ADI , 11:31 PM , 01:04 AM
--- NOTE | 2017-11-19 13:51 | HHI.CCPN ---
Subjective Remarks/Hospital Course 11/13: Patient is an 82-year-old male with past medical history of BPH, tobacco abuse who presented 11/12/2017 with dysuria, hematuria and urinary retention. Patient was admitted to the hospitalist service and underwent cystoscopy with fulguration by Dr. Lee. Was also placed on continuous bladder irrigation. Patient developed chest pain today a.m. EKG showed significant anterolateral ST elevation troponin bumped to 6.5 emergently taken to cardiac catheterization by Dr. Kelley. Received PCI, LAD stent,. Was loaded with 600 mg Plavix and was started on Aggrastat. Post stenting went to [facility] developed hypotension and was moved to the CVICU. Initially seen by Dr. Ryan patient had gross hematuria so O negative blood 2 units were ordered stat. I evaluated the patient in CVICU. He is persistently hypotensive receiving first 2 units of blood. Started on 1 mcg/min Levophed. Remains borderline hypotensive. Patient has significant gross hematuria, and is on CBI. He is anxious and complains about 9 out of 10 chest pain, I am starting on nitro drip. Patient may need IABP pain not resolved with nitro and Dilaudid/ Morphine. I have discussed with Dr. Kelley. 11/14: Resting comfortably in bed. Received 3 units PRBCs yesterday. Chest pain resolved currently. CBI with Amicar ongoing. Minimal pink tinged CBI fluid noted. 11/15: Resting comfortably. Denies SOB or abd pain. No chest pain currently. Reconsult 11/17: Patient 10 minute episode of reperfusion rhythm/V. tach. Potassium is 3.2. Magnesium 1.8 this a.m. Given 2 g mag sulfate IV 1 now. We placed on amiodarone drip. Discussed with Dr. Kelley will transfer to [facility] [place]. 11/18: Late entry note. Patient was noted to be hypokalemic this a.m. repletion provided. Patient denies any chest pain. Patient remains in sinus rhythm, amiodarone infusion continued. Family at bedside requesting possible transfer to another facility secondary to disappointment and care being provided. Case management consult initiated. EPS consulted, Dr. Jackson. Discussed with , family's request and plan of treatment. 11/19: Oxygen requirements increased overnight, now on partial rebreather ,chest x -ray showed new bilateral pleural effusions. IV fluids discontinued. Lasix 40 mg IV given 1 dose. The patient denies pain resting comfortably. Amiodarone continues IV infusion, plans to transition to PO today, discussed with Dr. Jackson. Objective Vital Signs Date Time Temp Pulse Resp B/P (MAP) Pulse Ox O2 Delivery O2 Flow Rate FiO2 11/19/17 08:14 97 Partial Rebreather 11/19/17 08:00 98.5 80 33 124/63 (83) 11/19/17 03:10 15.00 11/18/17 19:12 100 Intake and Output 11/19/17 11/19/17 11/20/17 08:00 16:00 00:00 Output Total 1950 ml Balance -1950 ml Result Diagram: 11/19/17 1120 11/19/17 0505 Imaging Last Impressions Abdomen/Pelvis CT 11/19/17 0819 Signed Impressions: Service Date/Time: November 09:06 - CONCLUSION: 1. The bowel gas pattern remains within normal limits. No mechanical obstruction. 2. There is a right inguinal hernia containing loops of small and large bowel without obstruction. 3. There is a Ma catheter in urinary bladder. However, the balloon on the Ma catheter appears to be inflated within the prostatic urethra. This may need to be adjusted. 4. There continues to be mixed density within the urinary bladder as well as air. This is not significantly changed compared to the prior exam. 5. Diffuse enlargement of the prostate gland. 6. New bilateral pleural effusions as well as bibasilar infiltrates. Amador Leiva MD Chest X-Ray 11/19/17 0600 Signed Impressions: Service Date/Time: November 03:30 - CONCLUSION: Progression of bilateral pulmonary disease in a pattern characteristic of interstitial and airspace pulmonary edema. There is a possible small right pleural effusion. Eduin Loo MD Abdomen X-Ray 11/18/17 0000 Signed Impressions: Service Date/Time: Saturday, November 18, 2017 16:18 - CONCLUSION: Unchanged bowel gas pattern. Jesus Deal Jr., MD Last Impressions Chest X-Ray 11/18/17 0600 Signed Impressions: Service Date/Time: Saturday, November 18, 2017 03:28 - CONCLUSION: New interstitial opacities bilaterally in a pattern characteristic of interstitial pulmonary edema. Eduin Loo MD Abdomen X-Ray 11/18/17 0000 Signed Impressions: Service Date/Time: Saturday, November 18, 2017 16:18 - CONCLUSION: Unchanged bowel gas pattern. Jesus Deal Jr., MD Abdomen/Pelvis CT 11/10/17 1210 Signed Impressions: Service Date/Time: Friday, November 10, 2017 12:47 - CONCLUSION: 1. Radiopaque material within the urinary bladder likely hematoma. Underlying mass cannot be excluded. 2. Mild wall thickening of the urinary bladder. 3. Enlarged prostate. 4. Right inguinal hernia containing small bowel loops without obstruction. 5. Diverticulosis without diverticulitis. 6. Small hiatal hernia. Mark Fitch MD Last Impressions Abdomen X-Ray 11/17/17 0000 Signed Impressions: Service Date/Time: Friday, November 17, 2017 08:42 - CONCLUSION: Nonspecific bowel gas pattern with stool in the colon. No evidence to suggest mechanical obstruction. Amador Leiva MD Chest X-Ray 11/14/17 0650 Signed Impressions: Service Date/Time: Tuesday, November 14, 2017 07:29 - CONCLUSION: Normal examination. Sudarshan Espino MD Abdomen/Pelvis CT 11/10/17 1210 Signed Impressions: Service Date/Time: Friday, November 10, 2017 12:47 - CONCLUSION: 1. Radiopaque material within the urinary bladder likely hematoma. Underlying mass cannot be excluded. 2. Mild wall thickening of the urinary bladder. 3. Enlarged prostate. 4. Right inguinal hernia containing small bowel loops without obstruction. 5. Diverticulosis without diverticulitis. 6. Small hiatal hernia. Mark Fitch MD Procedures Catheterization Objective Remarks GENERAL: Well-nourished, well-developed patient. Laying in bed, no apparent distress, now on partial nonrebreather mask SKIN: Skin assessment warm/dry. HEAD: Normocephalic. EYES: Pallor+ NECK: Supple, trachea midline. + JVD CARDIOVASCULAR: Regular rate and rhythm S1, S2. No S4. Without murmurs, RESPIRATORY: Breath sounds equal bilaterally. No accessory muscle use. GASTROINTESTINAL: Abdomen soft, nondistended. Right inguinal hernia : CBI ongoing with clear urine on return. MUSCULOSKELETAL: No cyanosis, or edema. NEURO: Patient is awake and alert oriented, No obvious focal deficit. A/P Assessment and Plan NEURO/PSYCH: Ofirmev 1 g IV every 8 hours as needed Hydromorphone 0 point to 0.5 mg IV every 4 hours as needed pain Melatonin 5 mg daily at bedtime when necessary for insomnia RESP: Maintain O2 saturation greater than equal to 92% Incentive spirometry while awake Albuterol/ipratropium aerosols every 6 hours with albuterol aerosols every 2 hours as needed dyspnea 11/19 CXR-pulmonary edema, bilateral pleural effusions 11/19 Lasix 40mg IV x dose now CV: STEMI s/p LAD Stent V. tach Elevated troponin Lactic acidosis -Continue maintenance IV fluids normal saline at 75 cc an hour with lactic acidosis. Serial lactates until cleared 11/19 Currently on amiodarone drip transitioned to by mouth amiodarone this afternoon -On aspirin 162 mg daily with clopidogrel 75 mg daily per cardiology -Resumed carvedilol 3.125 mg p.o. twice daily Atorvastatin 10 mg p.o. daily for dyslipidemia 2-D echo with low LVEF 35-40%. Anterior lateral wall akinesia. Consider BOBBY inhibitor. Defer to cardiology 11/18 Consulted EPS-medical management secondary to the criticality of the patient , plan for possible Life Vest/defibrillator , discussed with Dr. Allan GI: Constipation Elevated AST Hypoalbuminemia Right inguinal hernia Diverticulosis Gastroenterology following CT abdomen/pelvis earlier this hospitalization revealed right inguinal hernia without signs of strangulation, hiatal hernia, diverticulosis without diverticulitis and BPH 11/19 CT abdomen and pelvis repeated-no change right inguinal hernia containing loops of small and large bowel no mechanical obstruction now new bilateral pleural effusions. BPH Pantoprazole for GI prophylaxis 1 dose of methylnaltrexone 1 now Bowel regimen- No BM x 6 days : Gross hematuria-resolved Status post cystoscopy and fulguration BPH -Monitor renal function closely. Continuous bladder irrigation with Amicar per urology -Further hematuria and CBI management per Jesus with aminocaproic acid Continue tamsulosin 0.4 mg p.o. daily ID: Continue IV ceftriaxone with 3 UTI Repeat UA 11/17-follow up urine culture results HEME: Leukocytosis Normocytic anemia currently 11.4 -Status post 5 units PRBCs since admission -Monitor CBC CMP coags fibrinogen closely -Transfuse to keep hemoglobin more than [address] Kelley's request -Follow-up Hemoccult results ENDO/FEN: Hypo-potassium -Electrolyte replacement per protocol TSH normal PROPH: -Bilateral lower extremity SCDs. Chemical DVT prophylaxis is contraindicated at this time. Continue SCDs LINES: -Utilize peripheral IVs my billing statement This patient remains critically ill with one or more organ systems which are or may become a threat to life. I have spent in excess of 30 minutes discontinuously in the care and management of this patient. This time is exclusive of procedures, and includes, but is not limited to, evaluation of the patient, review of the medical record, discussions with family, consultants, nursing staff, or respiratory therapy, and documentation in the medical record. D/W Dr. Jackson, Case Management and patient's son at bedside. All questions answered. Awaiting disposition from Case Management regarding if family desires transfer to another facility. Physician Tori Wilcox MD Nov 19, 2017 13:51
--- NOTE | 2017-11-19 15:03 | HHI.GIFU ---
Subjective Remarks Pt resting in bed, family at bedside. He is now on non-rebreather. No BM. Denies nausea, vomiting, abdominal pain. (Franny Esquivel) Objective Vitals I&O Vital Signs Date Time Temp Pulse Resp B/P (MAP) Pulse Ox O2 Delivery O2 Flow Rate FiO2 11/19/17 08:14 97 Partial Rebreather 11/19/17 08:00 98.5 80 33 124/63 (83) 98 11/19/17 08:00 80 11/19/17 06:00 79 11/19/17 04:00 98.2 84 35 130/62 (84) 95 11/19/17 04:00 84 11/19/17 03:10 95 Non-Rebreather 15.00 11/19/17 02:00 80 11/19/17 00:00 90 11/19/17 00:00 99.0 90 31 156/83 (107) 91 11/18/17 23:51 90 Non-Rebreather 14.00 11/18/17 22:00 79 11/18/17 21:35 81 140/75 11/18/17 20:00 98.0 92 40 128/70 (89) 94 11/18/17 20:00 92 11/18/17 19:12 93 Non-Rebreather 15.00 100 11/18/17 18:00 65 11/18/17 16:00 98.6 75 26 131/69 (89) 88 11/18/17 16:00 65 11/18/17 15:16 93 Nasal Cannula 6.00 I/O 11/18/17 11/18/17 11/18/17 11/19/17 11/19/17 11/19/17 07:00 15:00 23:00 07:00 15:00 23:00 Intake Total 500 ml 3000 ml 350 ml Output Total 1400 ml 1950 ml Balance -900 ml 3000 ml 350 ml -1950 ml IV Total 500 ml 3000 ml 350 ml Output Urine Total 1400 ml 1950 ml # Bowel Movements 0 Laboratory Laboratory Tests Test 11/18/17 19:40 11/19/17 05:05 11/19/17 07:30 11/19/17 11:20 Hemoglobin 11.3 9.3 9.6 Hematocrit 31.4 26.8 28.5 Prothrombin Time 12.4 Prothromb Time International Ratio 1.2 Fibrinogen 392 Blood Urea Nitrogen 18 Creatinine 1.04 Random Glucose 142 Total Protein 5.0 Albumin 1.9 Calcium Level 6.8 Phosphorus Level 2.7 Magnesium Level 2.3 Alkaline Phosphatase 59 Aspartate Amino Transf (AST/SGOT) 23 Alanine Aminotransferase (ALT/SGPT) 15 Total Bilirubin 0.5 Sodium Level 144 Potassium Level 3.5 Chloride Level 112 Carbon Dioxide Level 22.0 Anion Gap 10 Estimat Glomerular Filtration Rate 68 Lactic Acid Level 1.4 Protein Corrected Calcium 7.9 Troponin I 9.00 White Blood Count 16.4 Red Blood Count 3.22 Mean Corpuscular Volume 88.4 Mean Corpuscular Hemoglobin 29.8 Mean Corpuscular Hemoglobin Concent 33.8 Red Cell Distribution Width 16.4 Platelet Count 226 Mean Platelet Volume 9.4 Neutrophils (%) (Auto) 87.9 Lymphocytes (%) (Auto) 5.7 Monocytes (%) (Auto) 6.2 Eosinophils (%) (Auto) 0.1 Basophils (%) (Auto) 0.1 Neutrophils # (Auto) 14.4 Lymphocytes # (Auto) 0.9 Monocytes # (Auto) 1.0 Eosinophils # (Auto) 0.0 Basophils # (Auto) 0.0 CBC Comment DIFF FINAL Differential Comment Date/Time Source Procedure Growth Status 11/18/17 00:30 Blood Peripheral Aerobic Blood Culture - Preliminary NO GROWTH IN 1 DAY Resulted 11/18/17 00:30 Blood Peripheral Anaerobic Blood Culture - Preliminary NO GROWTH IN 1 DAY Resulted 11/18/17 01:00 Urine Catheterized Urine Urine Culture - Preliminary NO GROWTH IN 24 HOURS. Resulted Imaging Last Impressions Abdomen/Pelvis CT 11/19/17 0819 Signed Impressions: Service Date/Time: November 09:06 - CONCLUSION: 1. The bowel gas pattern remains within normal limits. No mechanical obstruction. 2. There is a right inguinal hernia containing loops of small and large bowel without obstruction. 3. There is a Ma catheter in urinary bladder. However, the balloon on the Am catheter appears to be inflated within the prostatic urethra. This may need to be adjusted. 4. There continues to be mixed density within the urinary bladder as well as air. This is not significantly changed compared to the prior exam. 5. Diffuse enlargement of the prostate gland. 6. New bilateral pleural effusions as well as bibasilar infiltrates. Amador Leiva MD Chest X-Ray 11/19/17 0600 Signed Impressions: Service Date/Time: November 03:30 - CONCLUSION: Progression of bilateral pulmonary disease in a pattern characteristic of interstitial and airspace pulmonary edema. There is a possible small right pleural effusion. Eduin Loo MD Abdomen X-Ray 11/18/17 0000 Signed Impressions: Service Date/Time: Saturday, November 18, 2017 16:18 - CONCLUSION: Unchanged bowel gas pattern. Jesus Deal Jr., MD Physical Exam HEENT: Normocephalic; atraumatic CHEST: Tachypneic, Shallow respirations, Non-rebreather CARDIAC: RRR ABDOMEN: Distended, soft, nontender, bowel sounds active SKIN: Normal; no rash; no jaundice. LEGAL EXECUTIVE ASSISTANT: Alert and oriented x 3 (Franny Esquivel) Assessment and Plan Plan Assessment: - Ileus- Reports of no BM in 5 days. KUB noted (11/17) --> Nonspecific bowel gas pattern with stool in the colon. No evidence to suggests mechanical obstruction. - Anemia- normocytic- Drop in H/H overnight. Hgb was 8.5 yesterday, dropped to 6.7 this morning. 2 U PRBCs ordered, one transfusing during my exam. Given history of hematuria and CT consistent with hematoma in bladder, likely the cause. Per RN urine is increasingly red in color today. Pt is S/P cystoscopy with irrigation. No obvious source of GIB, pt denies BM in five days, no emesis. Has never had colonoscopy, he is unsure if he has ever had EGD. - Transaminitis- LFTS WNL on admission, elevated on 11/13 likely secondary to hypotension shocked liver. Denies ETOH and history of liver issues. - Acid reflux, belching- family has been giving pt Alondrajose guadalupe Phamer to help with symptoms. Protonix - STEMI S/P PCI with stent placement on 11/13- now on Plavix and ASA per cardiology (11/18) --> Pt was transferred to [facility] [place] due to episode of reperfusion rhythm/V tach. H/H currently 11.3/33.6 S/P 2 U PRBCs yesterday. Hemoccult stool pending. No obvious source of GIB. Pt remains to unstable for endoscopic procedures. Received Relistor yesterday, currently on Lelia-Colace, Lactulose, Reglan, and MiraLAX. Per RN catheter was obstructed causing bladder distention which is now resolved. Will repeat KUB in AM. (11/19) --> Pt with no BM. Denies nausea, vomiting, abdominal pain. Drop in H/H noted today. Still no obvious GIB. Remains with hematuria. CT abdomen and pelvis W/O contrast noted --> Bowel gas pattern remains within normal limits. No mechanical obstruction. Given pts high risk for endoscopic procedures and no evidence for GIB as well as normal gas pattern seen on CT our service will sign off, please reconsult as needed. Plan: - Continue with current bowel regimen - Monitor H/H - Notify GI if active GI bleeding - Our service will sign off, please reconsult as needed Pt has been seen and examined by myself and Dr. Buitrago and this note is written on his behalf (Franny Esquivel) Physician Comments Agree with above assessment and plan. Will start liquid diet and advance as tolerated. Please notify us if needed again. (Wendi Buitrago MD) Franny Esquivel Nov 19, 2017 15:03 Wendi Buitrago MD Nov 19, 2017 15:25
[2017-11-19] MEDS ORDERED: POTASSIUM CHLOR 20 MEQ PREMIX 100 ML IV ONE (15:30)
[2017-11-19] MEDS: AMIODARONE 200 MG TAB PO SCH ×2 (17:06→20:30)
[2017-11-19] MEDS ORDERED: POTASSIUM CHLORIDE 25 MEQ EFFERVESCENT TAB PO ONE (18:00)
[2017-11-19] MEDS: cefTRIAXone INJ 1,000 MG in SODIUM CHLORIDE 0.9% INJ 100 ML IV SCH (20:29)
[2017-11-19] MEDS: ATORVASTATIN 10 MG TAB PO SCH (20:30)
[2017-11-19 22:50] LABS: HEMATOCRIT 34.5 % (39.0-51.0); HEMOGLOBIN 11.6 GM/DL (13.0-17.0)
[2017-11-19] MEDS: POTASSIUM CHLOR 20 MEQ PREMIX 100 ML IV PRN (23:33)
[2017-11-20] VITALS (21 sets, daily range): BP systolic 81–132; BP diastolic 53–69; PULSE 74–93; RESP 24–60; TEMP 98–99.6; O2SAT 92–100
[2017-11-20] MEDS: AMINOCAPROIC ACID INJ 3,000 MG in SODIUM CHLORIDE 0.9% IRR BAG 3,000 ML IRRIGATION SCH ×3 (01:02→09:19)
[2017-11-20] MEDS: RESP: ALBUTEROL 2.5 MG/IPRATROPIUM 0.5 MG NEB (SCH) NEB ×4 (03:30→19:37)
[2017-11-20] MEDS: CHLORHEXIDINE GLUCONATE 2 % 1 PACK (2 CLOTHS)(taper/protocol) TOPICAL SCH (04:00)
[2017-11-20] MEDS: POTASSIUM CHLOR 20 MEQ PREMIX 100 ML IV PRN (04:14)
--- NOTE | 2017-11-20 06:02 | RADRPT ---
EXAM DATE/TIME: 11/20/2017 04:14 [place] COMPARISON: CHEST SINGLE AP, November 19, 2017, 3:30. INDICATIONS : Evaluate for respiratory failure. MEDICAL HISTORY : Hypertension. SURGICAL HISTORY : Prostatectomy. ENCOUNTER: Subsequent ACUITY: 1 week PAIN SCORE: Non-responsive. LOCATION: chest FINDINGS: Persistent bilateral parenchymal consolidation, upper lobe predominant on the right and mid lung pred ominant on the left. There is some new consolidation developing at both bases. No large effusion seen . No pneumothorax. Heart size stable, within normal limits. CONCLUSION: Bilateral infiltrates persist and are worsening of both bases. Eduin Landa MD on November 20, 2017 at 5:59 Board Certified Radiologist. This report was verified electronically.
[2017-11-20] MEDS: METOCLOPRAMIDE HCL 10 MG/2 ML VIAL IV PUSH SCH ×3 (06:10→21:02)
[2017-11-20] MEDS: ASPIRIN 81 MG CHEW TAB PO SCH (07:45)
[2017-11-20] MEDS: CARVEDILOL 3.125 MG TAB PO SCH ×3 (07:45→21:28)
[2017-11-20] MEDS: PANTOPRAZOLE SODIUM 40 MG VIAL IV PUSH SCH (07:45)
[2017-11-20] MEDS: CLOPIDOGREL 75 MG TAB PO SCH (07:45)
[2017-11-20] MEDS: TAMSULOSIN HCL 0.4 MG CAP PO SCH (07:45)
[2017-11-20] MEDS: AMIODARONE 200 MG TAB PO SCH ×2 (07:45→21:11)
[2017-11-20] MEDS: DOCUSATE SODIUM 50 MG/SENNA 8.6 MG TAB PO SCH ×2 (07:46→21:02)
[2017-11-20] MEDS: SODIUM CHLORIDE 0.9% FLUSH 10 ML FLUSH IV FLUSH SCH ×2 (07:46→21:01)
[2017-11-20] MEDS: LACTULOSE SYRUP 20 GM/30 ML CUP PO SCH (09:00)
[2017-11-20] MEDS: POLYETHYLENE GLYCOL 17 GM PKG PO SCH (09:00)
[2017-11-20 12:51] LABS: HEMATOCRIT 29.7 % (39.0-51.0); MEAN CELL VOLUME 88.5 FL (80.0-100.0); MEAN CORPUSCULAR HEMOGLOBIN 29.8 PG (27.0-34.0); MEAN CORPUSCULAR HGB CONC 33.7 % (32.0-36.0); MEAN PLATELET VOLUME 9.2 FL (7.0-11.0); PLATELET COUNT 209 TH/MM3 (150-450); RED BLOOD COUNT 3.35 MIL/MM3 (4.50-5.90); RED CELL DISTRIBUTION WIDTH 16.3 % (11.6-17.2); WHITE BLOOD COUNT 13.9 TH/MM3 (4.0-11.0)
[2017-11-20 13:12] LABS: BICARBONATE 29.5 MEQ/L (21.0-32.0); CALCIUM 7.2 MG/DL (8.5-10.1); CREATININE 1.2 MG/DL (0.60-1.30); MAGNESIUM 2.3 MG/DL (1.5-2.5)
[2017-11-20 13:28] LABS: CALCIUM-PROTEIN CORRECTED 7.9 MG/DL (8.5-10.1); TOTAL PROTEIN 5.7 GM/DL (6.4-8.2)
[2017-11-20 13:31] LABS: TROPONIN I 5.36 NG/ML (0.02-0.05)
--- NOTE | 2017-11-20 13:33 | HHI.PR ---
Subjective Patient symptoms today Pt seen and examined. CT scan reviewed. Hernández taken off traction today. Hernández irrigated to clear. Will hold CBI irrigation. Objective Vital Signs Vital Signs Date Time Temp Pulse Resp B/P (MAP) Pulse Ox O2 Delivery O2 Flow Rate FiO2 11/20/17 11:00 75 11/20/17 11:00 75 24 109/57 (74) 100 11/20/17 10:00 79 34 128/56 (80) 97 11/20/17 10:00 79 11/20/17 09:08 95 Partial Rebreather 11/20/17 09:00 84 11/20/17 09:00 84 40 125/60 (81) 94 11/20/17 08:00 79 11/20/17 08:00 99.6 79 25 105/58 (74) 95 11/20/17 07:00 74 11/20/17 07:00 74 32 125/61 (82) 96 11/20/17 06:00 75 11/20/17 04:00 98.2 80 30 98/54 (69) 96 11/20/17 04:00 80 11/20/17 03:32 99 Partial Rebreather 15.00 11/20/17 02:00 83 11/20/17 02:00 83 24 122/59 (80) 97 11/20/17 00:00 98.0 82 33 132/69 (90) 98 11/20/17 00:00 82 11/19/17 22:45 92 Partial Rebreather 15.00 11/19/17 22:00 95 30 141/67 (91) 98 11/19/17 22:00 95 11/19/17 20:00 97.3 93 40 110/77 (88) 90 11/19/17 20:00 93 11/19/17 18:00 81 11/19/17 16:00 98.0 81 33 122/60 (80) 98 11/19/17 16:00 81 11/19/17 14:00 83 Intake & Output 11/20/17 11/20/17 07:00 19:00 Intake Total 200 ml Output Total 2050 ml Balance -1850 ml IV Total 200 ml Output Urine Total 2050 ml Result Diagram: 11/20/17 1115 11/20/17 1115 Imaging Last 24 hours Impressions Chest X-Ray 11/20/17 0600 Signed Impressions: Service Date/Time: Monday, November 20, 2017 04:14 - CONCLUSION: Bilateral infiltrates persist and are worsening of both bases. Eduin Landa MD Objective Remarks Abd:soft,nt,nd Hernández: few clots irrigated; now clear 11/13/17 Abd:soft,nt,nd Hernández: irrigated to clear at bedside. 11/14 Abd:soft,nt,nd Hernández: gross hematuria on Amicar CBI 11/15 Abd:soft,nt,nd Hernández: gross hematuria is now clear on Amicar CBI; will titrate down 11/16 Abd:soft,nt,nd Hernández: clear urine 11/17 Abd:soft,nt,nd Hernández: urine clear Titrate CBI to off 11/18 Abd:soft,nt,nt Hernández irrigated at bedside and clot was evacuated and 500-600cc drained Titrate CBI to off. 11/19 Abd:soft,nt, distended Hernández: urine pink to clear 11/20 Abd:soft,nt,nd Hernández: manually irrigated at bedside and a few old clots removed CBI clamped Medications and IVs Current Medications Medications (Trade) Dose Ordered Sig/Micheal Route Start Time Stop Time Status Last Admin (Narcan Inj) 0.4 mg UNSCH PRN IV PUSH 11/10/17 14:15 (Flomax) 0.4 mg DAILY PO 11/11/17 09:00 11/20/17 07:45 (Catapres) 0.1 mg Q6H PRN PO 11/10/17 18:15 11/11/17 20:52 Aminocaproic Acid 3000 mg/Sodium Chloride 3,012 ml @ 0 mls/hr UNSCH IRRIGATION 11/13/17 14:15 11/20/17 09:19 (NS Flush) 2 ml UNSCH PRN IV FLUSH 11/13/17 16:45 (NS Flush) 2 ml BID IV FLUSH 11/13/17 21:00 11/20/17 07:46 (Aspirin Chew) 162 mg DAILY PO 11/14/17 09:00 11/20/17 07:45 (Plavix) 75 mg DAILY PO 11/14/17 09:00 11/20/17 07:45 (Coreg) 3.125 mg BID PO 11/13/17 21:00 11/20/17 07:45 (Lipitor) 10 mg HS PO 11/13/17 21:00 11/19/17 20:30 Nitroglycerin/ Dextrose 250 ml @ 1.5 mls/hr TITRATE PRN IV 11/13/17 19:30 11/13/17 19:30 (Zofran Inj) 4 mg Q6HR PRN IV PUSH 11/13/17 19:30 11/18/17 04:04 Potassium Chloride 100 ml @ 50 mls/hr Q2H PRN IV 11/14/17 11:45 Potassium Chloride 100 ml @ 50 mls/hr Q2H PRN IV 11/14/17 11:45 11/15/17 06:45 Potassium Chloride 100 ml @ 25 mls/hr UNSCH PRN IV 11/14/17 11:45 Potassium Chloride 100 ml @ 50 mls/hr Q2H PRN IV 11/14/17 11:45 11/20/17 04:14 Magnesium Sulfate 4 gm/Sodium Chloride 100 ml @ 50 mls/hr UNSCH PRN IV 11/14/17 11:45 (Mag-Ox) 800 mg UNSCH PRN PO 11/14/17 11:45 Magnesium Sulfate 2 gm/Sodium Chloride 100 ml @ 50 mls/hr UNSCH PRN IV 11/14/17 11:45 (K-Phos) 2,000 mg Q4H PRN PO 11/14/17 11:45 Sodium Phosphate 30 mmol/Sodium Chloride 250 ml @ 42 mls/hr UNSCH PRN IV 11/14/17 11:45 (K-Phos) 2,000 mg UNSCH PRN PO/TUBE 11/14/17 11:45 Potassium Phosphate 30 mmol/ Sodium Chloride 260 ml @ 42 mls/hr UNSCH PRN IV 11/14/17 11:45 Aminocaproic Acid 1000 mg/Sodium Chloride 1,004 ml @ 0 mls/hr UNSCH IRRIGATION 11/14/17 17:00 Future hold (Protonix Inj) 40 mg DAILY IV PUSH 11/17/17 09:00 11/20/17 07:45 (Miralax) 17 gm DAILY PO 11/17/17 11:00 11/18/17 09:55 (Reglan Inj) 5 mg Q8HR IV PUSH 11/17/17 22:00 11/20/17 06:10 Miscellaneous Information Patient in critical care unit? Ass... [id number] .XX 11/17/17 20:45 11/17/17 20:45 (Chlorhexidine 2% Cloth) 3 pack DAILY@04 TOPICAL 11/18/17 04:00 11/22/17 04:01 11/20/17 04:00 (Chlorhexidine 2% Cloth) 3 pack UNSCH PRN TOPICAL 11/17/17 20:45 11/22/17 20:32 (Dilaudid Pf Inj) 0.5 mg Q4H PRN IV 11/17/17 21:15 11/18/17 07:43 (Dilaudid Pf Inj) 0.2 mg Q4H PRN IV PUSH 11/17/17 21:15 Acetaminophen 100 ml @ 400 mls/hr Q8HR PRN IV 11/17/17 21:15 (Duoneb Neb) 1 ampule Q6HR NEB NEB 11/17/17 22:00 11/20/17 09:05 (Albuterol Neb) 2.5 mg Q2HR NEB PRN NEB 11/17/17 21:15 11/18/17 01:46 Ceftriaxone Sodium 1000 mg/ Sodium Chloride 100 ml @ 200 mls/hr Q24H IV 11/17/17 22:00 11/19/17 20:29 (Lelia-Colace) 1 tab BID PO 11/18/17 09:00 11/20/17 07:46 (Lactulose Liq) 30 ml DAILY PO 11/18/17 09:00 11/18/17 09:56 (Melatonin) 5 mg HS PRN PO 11/18/17 20:00 (Cordarone) 400 mg Q12HR PO 11/19/17 17:00 11/25/17 17:00 11/20/17 07:45 (Cordarone) 200 mg Q12H PO 11/26/17 05:00 Assessment and Plan Assessment and Plan 82 y.o male with gross hematuria Hematuria clears with manual irrigation Irrigate hernández Q 2 hours If persists, will need cysto. If clears can be discharged with hernández in place and perform void trial next week. 11/13/17 82 y.o male with gross hematuria s/p cysto with fulguration Hernández irrigated to clear this AM If urine remains clear can d/c home with hernández this afternoon and f/u next Thu. AM for void trial in office. 11/14 82 y.o male s/p NSTEMI yesterday s/p cardiac stent on Plavix with h/o prostatic bleeding s/p cysto/fulguration Will need to continue Amicar CBI Irrigate hernández prn clots Follow Hgb Creatinine improved. 11/15 82 y.o male s/p NSTEMI with h/o prostatic bleeding Slowly titrate down the Amicar Follow Hgb Continue Plavix 11/16 82 y.o male s/p NSTEMI with h/o prostatic bleeding Hematuria resolving Titrate Amicar drip to off as urine remains clear. 11/17 82 y.o male s/p NSTEMI with h/o prostatic bleeding Hgb dropped overnight from 8.5 to 6.7. Will repeat H/H stat If true, transfuse 2 units Guiac stools 11/18 82 y.o male s/p NSTEMI with h/o prostatic bleeding with recent run of V-tach Hernández irrigated and clot removed. Urine now draining clear Titrate Amicar CBI to off as urine remains clear 11/19 82 y.o male s/p cysto/fulguration with NSTEMI and run of V-tach CT scan of abdomen/pelvis today Amicar CBI on slow rate; no more evidence of active bleeding from tract 11/20 82 y.o male s/p cysto/fulguration with NSTEMI Hernández irrigated to clear Hold CBI; place catheter plug in CBI port and hernández now off traction. No evidence of hematuria I will be away next week. Please call the office in their are any problems at [phone]. Rafita Lee DO Nov 20, 2017 13:33
[2017-11-20] MEDS ORDERED: POTASSIUM CHLORIDE 25 MEQ EFFERVESCENT TAB PO ONE (15:00)
[2017-11-20] MEDS ORDERED: FUROSEMIDE 40 MG/4 ML VIAL IV PUSH ONE (15:00)
[2017-11-20] MEDS: POTASSIUM PHOSPHATE MONOBASIC 500 MG TAB PO PRN ×2 (15:06→18:54)
[2017-11-20] MEDS ORDERED: Vancomycin Consult Pharmacy 1 EA OTHER SCH (16:45)
--- NOTE | 2017-11-20 16:59 | HHI.CCPN ---
Subjective Remarks/Hospital Course 11/13: Patient is an 82-year-old male with past medical history of BPH, tobacco abuse who presented 11/12/2017 with dysuria, hematuria and urinary retention. Patient was admitted to the hospitalist service and underwent cystoscopy with fulguration by Dr. Lee. Was also placed on continuous bladder irrigation. Patient developed chest pain today a.m. EKG showed significant anterolateral ST elevation troponin bumped to 6.5 emergently taken to cardiac catheterization by Dr. Kelley. Received PCI, LAD stent,. Was loaded with 600 mg Plavix and was started on Aggrastat. Post stenting went to [facility] developed hypotension and was moved to the CVICU. Initially seen by Dr. Ryan patient had gross hematuria so O negative blood 2 units were ordered stat. I evaluated the patient in CVICU. He is persistently hypotensive receiving first 2 units of blood. Started on 1 mcg/min Levophed. Remains borderline hypotensive. Patient has significant gross hematuria, and is on CBI. He is anxious and complains about 9 out of 10 chest pain, I am starting on nitro drip. Patient may need IABP pain not resolved with nitro and Dilaudid/ Morphine. I have discussed with Dr. Kelley. 11/14: Resting comfortably in bed. Received 3 units PRBCs yesterday. Chest pain resolved currently. CBI with Amicar ongoing. Minimal pink tinged CBI fluid noted. 11/15: Resting comfortably. Denies SOB or abd pain. No chest pain currently. Reconsult 11/17: Patient 10 minute episode of reperfusion rhythm/V. tach. Potassium is 3.2. Magnesium 1.8 this a.m. Given 2 g mag sulfate IV 1 now. We placed on amiodarone drip. Discussed with Dr. Kelley will transfer to [facility]. 11/18: Late entry note. Patient was noted to be hypokalemic this a.m. repletion provided. Patient denies any chest pain. Patient remains in sinus rhythm, amiodarone infusion continued. Family at bedside requesting possible transfer to another facility secondary to disappointment and care being provided. Case management consult initiated. EPS consulted, Dr. Jackson. Discussed with , family's request and plan of treatment. 11/19: Oxygen requirements increased overnight, now on partial rebreather ,chest x -ray showed new bilateral pleural effusions. IV fluids discontinued. Lasix 40 mg IV given 1 dose. The patient denies pain resting comfortably. Amiodarone continues IV infusion, plans to transition to PO today, discussed with Dr. Jackson. 11/20: Chest x-ray worsening, aggressive diuresis continued the patient received Lasix 80 mg yesterday. Patient continues on partial nonrebreather mask O2 sat 95% CT chest pending. Persistent leukocytosis noted ID has been consulted. Empiric antibiotics have been initiated. Patient had BM last evening, diet has been advanced to clear liquid per GI. Objective Vital Signs Date Time Temp Pulse Resp B/P (MAP) Pulse Ox O2 Delivery O2 Flow Rate FiO2 11/20/17 11:00 75 11/20/17 11:00 24 109/57 (74) 100 11/20/17 09:08 Partial Rebreather 11/20/17 08:00 99.6 11/20/17 03:32 15.00 11/18/17 19:12 100 Intake and Output 11/20/17 11/20/17 11/21/17 08:00 16:00 00:00 Intake Total 100 ml Output Total 2050 ml Balance -1950 ml Result Diagram: 11/20/17 1115 11/20/17 1115 Other Results Microbiology Date/Time Source Procedure Growth Status 11/18/17 01:00 Urine Catheterized Urine Urine Culture - Final NO GROWTH IN 48 HOURS. Complete Imaging Last Impressions Abdomen/Pelvis CT 11/19/17 0819 Signed Impressions: Service Date/Time: November 09:06 - CONCLUSION: 1. The bowel gas pattern remains within normal limits. No mechanical obstruction. 2. There is a right inguinal hernia containing loops of small and large bowel without obstruction. 3. There is a Ma catheter in urinary bladder. However, the balloon on the Ma catheter appears to be inflated within the prostatic urethra. This may need to be adjusted. 4. There continues to be mixed density within the urinary bladder as well as air. This is not significantly changed compared to the prior exam. 5. Diffuse enlargement of the prostate gland. 6. New bilateral pleural effusions as well as bibasilar infiltrates. Amador Leiva MD Chest X-Ray 11/19/17 0600 Signed Impressions: Service Date/Time: November 03:30 - CONCLUSION: Progression of bilateral pulmonary disease in a pattern characteristic of interstitial and airspace pulmonary edema. There is a possible small right pleural effusion. Eduin Loo MD Abdomen X-Ray 11/18/17 0000 Signed Impressions: Service Date/Time: Saturday, November 18, 2017 16:18 - CONCLUSION: Unchanged bowel gas pattern. Jesus Deal Jr., MD Last Impressions Chest X-Ray 11/18/17 0600 Signed Impressions: Service Date/Time: Saturday, November 18, 2017 03:28 - CONCLUSION: New interstitial opacities bilaterally in a pattern characteristic of interstitial pulmonary edema. Eduin Loo MD Abdomen X-Ray 11/18/17 0000 Signed Impressions: Service Date/Time: Saturday, November 18, 2017 16:18 - CONCLUSION: Unchanged bowel gas pattern. Jesus Deal Jr., MD Abdomen/Pelvis CT 11/10/17 1210 Signed Impressions: Service Date/Time: Friday, November 10, 2017 12:47 - CONCLUSION: 1. Radiopaque material within the urinary bladder likely hematoma. Underlying mass cannot be excluded. 2. Mild wall thickening of the urinary bladder. 3. Enlarged prostate. 4. Right inguinal hernia containing small bowel loops without obstruction. 5. Diverticulosis without diverticulitis. 6. Small hiatal hernia. Mark Fitch MD Last Impressions Abdomen X-Ray 11/17/17 0000 Signed Impressions: Service Date/Time: Friday, November 17, 2017 08:42 - CONCLUSION: Nonspecific bowel gas pattern with stool in the colon. No evidence to suggest mechanical obstruction. Amador Leiva MD Chest X-Ray 11/14/17 0650 Signed Impressions: Service Date/Time: Tuesday, November 14, 2017 07:29 - CONCLUSION: Normal examination. Sudarshan Espino MD Abdomen/Pelvis CT 11/10/17 1210 Signed Impressions: Service Date/Time: Friday, November 10, 2017 12:47 - CONCLUSION: 1. Radiopaque material within the urinary bladder likely hematoma. Underlying mass cannot be excluded. 2. Mild wall thickening of the urinary bladder. 3. Enlarged prostate. 4. Right inguinal hernia containing small bowel loops without obstruction. 5. Diverticulosis without diverticulitis. 6. Small hiatal hernia. Mark Fitch MD Procedures Catheterization Objective Remarks GENERAL: Well-nourished, well-developed patient. Laying in bed, no apparent distress, now on partial nonrebreather mask SKIN: Skin assessment warm/dry. HEAD: Normocephalic. EYES: Pallor+ NECK: Supple, trachea midline. + JVD CARDIOVASCULAR: Regular rate and rhythm S1, S2. No S4. Without murmurs, RESPIRATORY: Breath sounds equal bilaterally. No accessory muscle use. GASTROINTESTINAL: Abdomen soft, nondistended. Right inguinal hernia : CBI ongoing with clear urine on return. MUSCULOSKELETAL: No cyanosis, or edema. NEURO: Patient is awake and alert oriented, No obvious focal deficit. A/P Assessment and Plan NEURO/PSYCH: Ofirmev 1 g IV every 8 hours as needed Hydromorphone 0 point to 0.5 mg IV every 4 hours as needed pain Melatonin 5 mg daily at bedtime when necessary for insomnia RESP: Maintain O2 saturation greater than equal to 92% Incentive spirometry while awake Albuterol/ipratropium aerosols every 6 hours with albuterol aerosols every 2 hours as needed dyspnea 11/19 CXR-pulmonary edema, bilateral pleural effusions Lasix 40mg IV daily CV: STEMI s/p LAD Stent V. tach Elevated troponin Lactic acidosis -Continue maintenance IV fluids normal saline at 75 cc an hour with lactic acidosis. Serial lactates until cleared 11/19 Currently on amiodarone drip transitioned to by mouth amiodarone this afternoon -On aspirin 162 mg daily with clopidogrel 75 mg daily per cardiology -Resumed carvedilol 3.125 mg p.o. twice daily Atorvastatin 10 mg p.o. daily for dyslipidemia 2-D echo with low LVEF 35-40%. Anterior lateral wall akinesia. Consider BOBBY inhibitor. Defer to cardiology 11/18 Consulted EPS-medical management secondary to the criticality of the patient , plan for possible Life Vest/defibrillator , discussed with Dr. Jackson GI: Constipation Elevated AST Hypoalbuminemia Right inguinal hernia Diverticulosis Gastroenterology following CT abdomen/pelvis earlier this hospitalization revealed right inguinal hernia without signs of strangulation, hiatal hernia, diverticulosis without diverticulitis and BPH 11/19 CT abdomen and pelvis repeated-no change right inguinal hernia containing loops of small and large bowel no mechanical obstruction now new bilateral pleural effusions. BPH Pantoprazole for GI prophylaxis Bowel regimen 11/20 Advanced to clear liquid diet : Gross hematuria-resolved Status post cystoscopy and fulguration BPH -Monitor renal function closely. Continuous bladder irrigation with Amicar per urology -Further hematuria and CBI management per Jesus with aminocaproic acid- discontinued 11/20. Bladder to be flush every shift per urology orders Continue tamsulosin 0.4 mg p.o. daily ID: Leukocytosis Blood cultures- NGTD Continue IV ceftriaxone with 3 UTI Repeat UA 11/17-follow up urine culture results HEME: Normocytic anemia currently 11.4 -Status post 5 units PRBCs since admission -Monitor CBC CMP coags fibrinogen closely -Transfuse to keep hemoglobin more than [address] Kelley's request. Hemoglobin stable 10 -Follow-up Hemoccult results ENDO/FEN: Hypo-potassium -Electrolyte replacement per protocol TSH normal PROPH: -Bilateral lower extremity SCDs. Chemical DVT prophylaxis is contraindicated at this time, organized clots flush from bladder. Continue SCDs LINES: -Utilize peripheral IVs Level 3 Physician Tori Wilcox MD Nov 20, 2017 16:59
[2017-11-20] MEDS ORDERED: CEFEPIME INJ 2,000 MG in SODIUM CHLORIDE 0.9% INJ 100 ML IV SCH (18:00)
[2017-11-20] MEDS ORDERED: VANCOMYCIN INJ 2,000 MG in SODIUM CHLORID 0.9% 500 ML INJ 500 ML IV ONE (18:30)
[2017-11-20] MEDS: ATORVASTATIN 10 MG TAB PO SCH (21:02)
[2017-11-20] MEDS: cefTRIAXone INJ 1,000 MG in SODIUM CHLORIDE 0.9% INJ 100 ML IV SCH (21:03)
--- NOTE | 2017-11-20 22:31 | RADRPT ---
EXAM DATE/TIME: 11/20/2017 22:03 [facility] COMPARISON: CHEST SINGLE AP, November 20, 2017, 4:14. INDICATIONS : Shortness of breath. RADIATION DOSE: 9.38 CTDIvol (mGy) MEDICAL HISTORY : Hypertension. SURGICAL HISTORY : None. ENCOUNTER: Initial ACUITY: 1 day PAIN SCALE: 0/10 LOCATION: chest TECHNIQUE: Volumetric scanning of the chest was performed. Using automated exposure control and adjustment of t he mA and/or kV according to patient size, radiation dose was kept as low as reasonably achievable to obtain optimal diagnostic quality images. DICOM format image data is available electronically for r eview and comparison. Follow-up recommendations for detected pulmonary nodules are based at a minimum on nodule size and pa tient risk factors according to Fleischner Society Guidelines. FINDINGS: Diffuse airspace opacities throughout both lungs, sparing a portion of the right middle lobe and with diffuse air bronchograms are present. There is also moderate-sized bilateral pleural effusions latanya uring 6.2 cm and the right and 5.5 cm on the left. No evidence of mediastinal adenopathy. Coronary artery calcifications. Wide windows for bony detail seen the osseous structures are grossly intact. CONCLUSION: Diffuse confluent airspace opacities throughout both lungs obscuring portions of the right middle lob e. There is associated large bilateral pleural effusions. Jesus Martinez MD on November 20, 2017 at 22:28 Board Certified Radiologist. This report was verified electronically.
[2017-11-20] MEDS ORDERED: BELLADONNA ALKALOIDS/OPIUM 60 MG SUPP RECTAL ONE (23:00)
[2017-11-20] MEDS: HYDROmorphone HCL PF 2 MG/ML VIAL IV PRN (23:09)
[2017-11-21] VITALS (19 sets, daily range): BP systolic 74–124; BP diastolic 45–67; PULSE 78–101; RESP 18–39; TEMP 97.6–98.7; O2SAT 93–100
[2017-11-21 00:29] LABS: HEMATOCRIT 24.8 % (39.0-51.0); HEMOGLOBIN 8.3 GM/DL (13.0-17.0)
[2017-11-21] MEDS: RESP: ALBUTEROL 2.5 MG/IPRATROPIUM 0.5 MG NEB (SCH) NEB ×4 (03:33→21:10)
[2017-11-21] MEDS: CHLORHEXIDINE GLUCONATE 2 % 1 PACK (2 CLOTHS)(taper/protocol) TOPICAL SCH (04:00)
[2017-11-21] MEDS ORDERED: CALCIUM CHLORIDE INJ 1 GM in DEXTROSE 5% IN WATER 100ML INJ 100 ML IV ONE ×2 (04:15)
--- NOTE | 2017-11-21 04:50 | RADRPT ---
EXAM DATE/TIME: 11/21/2017 03:53 [facility] COMPARISON: CHEST SINGLE AP, November 20, 2017, 4:14. INDICATIONS : Shortness of breath, possible pulmonary disease. MEDICAL HISTORY : Hypertension. SURGICAL HISTORY : Prostatectomy. ENCOUNTER: Subsequent ACUITY: 1 week PAIN SCORE: Non-responsive. LOCATION: Bilateral chest FINDINGS: Bilateral parenchymal opacities are again noted, fairly diffuse but especially confluent in the upper lobe on the right and perihilar on the left. Both sides appear slightly improved in the interim. Jose ateral pleural effusions are suspected. No pneumothorax. 5 stable, within normal limits. CONCLUSION: Slightly improved bilateral airspace opacities. Eduin Landa MD on November 21, 2017 at 4:48 Board Certified Radiologist. This report was verified electronically.
[2017-11-21 05:04] LABS: AUTOMATED NEUTROPHIL # 17.6 TH/MM3 (1.8-7.7); BASOPHIL % 0.2 % (0.0-2.0); EOSINOPHIL % 0.2 % (0.0-4.0); HEMATOCRIT 22.9 % (39.0-51.0); HEMOGLOBIN 7.7 GM/DL (13.0-17.0); LYMPH % 7.8 % (9.0-44.0); LYMPHOCYTE # 1.6 TH/MM3 (1.0-4.8); MEAN CELL VOLUME 87.7 FL (80.0-100.0); MEAN CORPUSCULAR HEMOGLOBIN 29.6 PG (27.0-34.0); MEAN CORPUSCULAR HGB CONC 33.7 % (32.0-36.0); MEAN PLATELET VOLUME 9.3 FL (7.0-11.0); MONO % 6.8 % (0.0-8.0); MONOCYTE # 1.4 TH/MM3 (0-0.9); PLATELET COUNT 272 TH/MM3 (150-450); RED BLOOD COUNT 2.61 MIL/MM3 (4.50-5.90); RED CELL DISTRIBUTION WIDTH 16.1 % (11.6-17.2); WHITE BLOOD COUNT 20.7 TH/MM3 (4.0-11.0)
[2017-11-21] MEDS: METOCLOPRAMIDE HCL 10 MG/2 ML VIAL IV PUSH SCH ×3 (05:09→20:59)
[2017-11-21 05:35] LABS: BICARBONATE 25.5 MEQ/L (21.0-32.0); CALCIUM 6.5 MG/DL (8.5-10.1); CREATININE 2.06 MG/DL (0.60-1.30); MAGNESIUM 2.1 MG/DL (1.5-2.5); PHOSPHORUS 3.4 MG/DL (2.5-4.9)
[2017-11-21 05:38] LABS: TROPONIN I 4.86 NG/ML (0.02-0.05)
[2017-11-21 05:59] LABS: TOTAL PROTEIN 5.3 GM/DL (6.4-8.2)
[2017-11-21 06:11] LABS: CALCIUM-PROTEIN CORRECTED 7.4 MG/DL (8.5-10.1)
[2017-11-21] MEDS: AMIODARONE 200 MG TAB PO SCH ×2 (07:53→19:48)
[2017-11-21] MEDS: HYDROmorphone HCL PF 2 MG/ML VIAL IV PRN ×3 (07:53→17:43)
[2017-11-21] MEDS: ASPIRIN 81 MG CHEW TAB PO SCH (07:54)
[2017-11-21] MEDS: PANTOPRAZOLE SODIUM 40 MG VIAL IV PUSH SCH (07:54)
[2017-11-21] MEDS: POLYETHYLENE GLYCOL 17 GM PKG PO SCH (07:54)
[2017-11-21] MEDS: LACTULOSE SYRUP 20 GM/30 ML CUP PO SCH (07:55)
[2017-11-21] MEDS: TAMSULOSIN HCL 0.4 MG CAP PO SCH (07:55)
[2017-11-21] MEDS: CLOPIDOGREL 75 MG TAB PO SCH (07:56)
[2017-11-21] MEDS: CARVEDILOL 3.125 MG TAB PO SCH ×2 (07:56→19:48)
[2017-11-21] MEDS: DOCUSATE SODIUM 50 MG/SENNA 8.6 MG TAB PO SCH ×2 (07:56→19:48)
[2017-11-21] MEDS ORDERED: FUROSEMIDE 40 MG/4 ML VIAL IV PUSH SCH (09:00)
[2017-11-21] MEDS: SODIUM CHLORIDE 0.9% FLUSH 10 ML FLUSH IV FLUSH SCH ×2 (09:00→19:48)
[2017-11-21] MEDS ORDERED: DEXTROSE 50% IN WATER 50 ML VIAL(D50) IV PUSH PRN (09:30)
[2017-11-21] MEDS ORDERED: GLUCAGON 1 MG/ML VIAL OTHER PRN (09:30)
--- NOTE | 2017-11-21 10:03 | PD.CONS ---
History of Present Illness Service Infectious disease Consult Requested By Dr Del Rio Reason for Consult Evaluate patient with leukocytosis Primary Care Physician Unknown Diagnoses: History of Present Illness Patient seen and examined. Records reviewed. Patient is an 82-year-old male presented to the hospital for evaluation of hematuria. Patient has known BPH, and last year around the same time he was admitted for hematuria and suprapubic pain. He underwent cystoscopy and evacuation of clots, fulguration of the bleeding site within the prostatic urethra, and a Ma catheter was removed. He followed up with the urologist after about 4 days, and apparently has not had any problem with hematuria up until this admission. Urology was consulted. Patient had continuous bladder irrigation, and his bleeding was not being controlled, so he underwent cystoscopy and fulguration of the prostatic bleeding. Since then he's had problem with persistent hematuria. His hemoglobin had dropped requiring blood transfusion. On November 13 he complained of chest pain, and EKGs changes showed an acute AL. Cardiac catheter was done. Patient also has had problem with VT, and that seems to be under control with medications. On November 29 start having problem with increasing oxygen requirement. His chest x-ray has shown no bilateral infiltrates with effusions. He has been afebrile. He states he still has some shortness of breath but not worse. He is on nasal O2. His hemodynamics are okay. Today his white count went up to 20,000, an infectious disease consultation has been requested to evaluate the patient. Patient's hematuria has been under control and he has blood-tinged urine. However overnight he started having monica hematuria. His Ma catheter was changed and a bigger size was placed. Bladder scan yesterday was 720, and he had a good urine output after replacement of the Ma. As of this morning, patient has monica hematuria, and has low output. He is complaining of lower abdominal pain. There has been no diarrhea. He denies any cough or chest congestion. He denies chest pain. There is been no nausea or vomiting. He is swallowing okay. Patient has no central line. Patient has been on multiple antibiotics. He was on Cipro from November 10 2 November 16. He has been on Rocephin since November 17, and he got 1 dose of vancomycin yesterday. Infectious disease consultation has been requested to evaluate the patient. Review of Systems Constitutional: DENIES: Fever, Chills Eyes: DENIES: Eye pain Ears, nose, mouth, throat: DENIES: Nasal discharge, Oral lesions, Throat pain Respiratory: COMPLAINS OF: Shortness of breath, DENIES: Cough, Sputum production Cardiovascular: DENIES: Chest pain, Palpitations Gastrointestinal: COMPLAINS OF: Abdominal pain, DENIES: Diarrhea, Nausea, Vomiting, Difficulty Swallowing Genitourinary: COMPLAINS OF: Hematuria Musculoskeletal: DENIES: Joint pain, Joint Swelling Integumentary: DENIES: Pruritus, Rash Hematologic/lymphatic: DENIES: Lymphadenopathy Neurologic: DENIES: Localized weakness Psychiatric: DENIES: Hallucinations Past Family Social History Allergies: Coded Allergies: No Known Allergies (Verified Allergy, Unknown, 11/10/17) Past Medical History BPH Hypertension Previous episode of hematuria in 2016 Past Surgical History TURP 2006 Active Ordered Medications Current Medications Rocephin Cefepime 1 dose Vancomycin 1 dose November 20 Medications (Trade) Dose Ordered Sig/Micheal Route Start Time Stop Time Status Last Admin (Narcan Inj) 0.4 mg UNSCH PRN IV PUSH 11/10/17 14:15 (Flomax) 0.4 mg DAILY PO 11/11/17 09:00 11/21/17 07:55 (Catapres) 0.1 mg Q6H PRN PO 11/10/17 18:15 11/11/17 20:52 Aminocaproic Acid 3000 mg/Sodium Chloride 3,012 ml @ 0 mls/hr UNSCH IRRIGATION 11/13/17 14:15 Future Hold 11/20/17 09:19 (NS Flush) 2 ml UNSCH PRN IV FLUSH 11/13/17 16:45 (NS Flush) 2 ml BID IV FLUSH 11/13/17 21:00 11/21/17 09:00 (Aspirin Chew) 162 mg DAILY PO 11/14/17 09:00 11/21/17 07:54 (Plavix) 75 mg DAILY PO 11/14/17 09:00 11/21/17 07:56 (Coreg) 3.125 mg BID PO 11/13/17 21:00 11/20/17 21:28 (Lipitor) 10 mg HS PO 11/13/17 21:00 11/20/17 21:02 Nitroglycerin/ Dextrose 250 ml @ 1.5 mls/hr TITRATE PRN IV 11/13/17 19:30 11/13/17 19:30 (Zofran Inj) 4 mg Q6HR PRN IV PUSH 11/13/17 19:30 11/18/17 04:04 Potassium Chloride 100 ml @ 50 mls/hr Q2H PRN IV 11/14/17 11:45 Potassium Chloride 100 ml @ 50 mls/hr Q2H PRN IV 11/14/17 11:45 11/15/17 06:45 Potassium Chloride 100 ml @ 25 mls/hr UNSCH PRN IV 11/14/17 11:45 Potassium Chloride 100 ml @ 50 mls/hr Q2H PRN IV 11/14/17 11:45 11/20/17 04:14 Magnesium Sulfate 4 gm/Sodium Chloride 100 ml @ 50 mls/hr UNSCH PRN IV 11/14/17 11:45 (Mag-Ox) 800 mg UNSCH PRN PO 11/14/17 11:45 Magnesium Sulfate 2 gm/Sodium Chloride 100 ml @ 50 mls/hr UNSCH PRN IV 11/14/17 11:45 (K-Phos) 2,000 mg Q4H PRN PO 11/14/17 11:45 11/20/17 18:54 Sodium Phosphate 30 mmol/Sodium Chloride 250 ml @ 42 mls/hr UNSCH PRN IV 11/14/17 11:45 (K-Phos) 2,000 mg UNSCH PRN PO/TUBE 11/14/17 11:45 Potassium Phosphate 30 mmol/ Sodium Chloride 260 ml @ 42 mls/hr UNSCH PRN IV 11/14/17 11:45 Aminocaproic Acid 1000 mg/Sodium Chloride 1,004 ml @ 0 mls/hr UNSCH IRRIGATION 11/14/17 17:00 Future hold (Protonix Inj) 40 mg DAILY IV PUSH 11/17/17 09:00 11/21/17 07:54 (Miralax) 17 gm DAILY PO 11/17/17 11:00 11/21/17 07:54 (Reglan Inj) 5 mg Q8HR IV PUSH 11/17/17 22:00 11/21/17 05:09 Miscellaneous Information Patient in critical care unit? Ass... [id number] .XX 11/17/17 20:45 11/17/17 20:45 (Chlorhexidine 2% Cloth) 3 pack DAILY@04 TOPICAL 11/18/17 04:00 11/22/17 04:01 11/21/17 04:00 (Chlorhexidine 2% Cloth) 3 pack UNSCH PRN TOPICAL 11/17/17 20:45 11/22/17 20:32 (Dilaudid Pf Inj) 0.5 mg Q4H PRN IV 11/17/17 21:15 11/21/17 07:53 (Dilaudid Pf Inj) 0.2 mg Q4H PRN IV PUSH 11/17/17 21:15 Acetaminophen 100 ml @ 400 mls/hr Q8HR PRN IV 11/17/17 21:15 (Albuterol Neb) 2.5 mg Q2HR NEB PRN NEB 11/17/17 21:15 11/18/17 01:46 Ceftriaxone Sodium 1000 mg/ Sodium Chloride 100 ml @ 200 mls/hr Q24H IV 11/17/17 22:00 11/20/17 21:03 (Lelia-Colace) 1 tab BID PO 11/18/17 09:00 11/21/17 07:56 (Lactulose Liq) 30 ml DAILY PO 11/18/17 09:00 11/18/17 09:56 (Melatonin) 5 mg HS PRN PO 11/18/17 20:00 (Cordarone) 400 mg Q12HR PO 11/19/17 17:00 11/25/17 17:00 11/21/17 07:53 (Cordarone) 200 mg Q12H PO 11/26/17 05:00 Pharmacy Profile Note 0 ml @ 0 mls/hr UNSCH OTHER 11/20/17 16:45 (Duoneb Neb) 1 ampule Q6HR NEB NEB 11/21/17 10:00 UNV (NovoLOG SUPPLEMENTAL SCALE) 1 ACHS SLIDING SCALE SQ 11/21/17 12:00 UNV (D50w (Vial) Inj) 50 ml UNSCH PRN IV PUSH 11/21/17 09:30 UNV (Glucagon Inj) 1 mg UNSCH PRN OTHER 11/21/17 09:30 UNV Family History CAD Social History No smoking No alcohol abuse No illicit drugs Physical Exam Vital Signs Vital Signs Date Time Temp Pulse Resp B/P (MAP) Pulse Ox O2 Delivery O2 Flow Rate FiO2 11/21/17 08:23 20 11/21/17 08:00 98 11/21/17 08:00 97.8 98 27 96/61 (73) 93 11/21/17 07:24 100 Partial Rebreather 15.00 11/21/17 06:00 100 11/21/17 04:00 97.6 97 22 74/45 (55) 100 11/21/17 04:00 97 11/21/17 02:00 91 11/21/17 00:00 101 11/21/17 00:00 98.3 101 39 91/56 (68) 97 11/20/17 22:00 93 11/20/17 20:00 92 11/20/17 20:00 98.9 92 32 100/54 (69) 95 11/20/17 19:40 96 Partial Rebreather 15.00 11/20/17 18:00 79 11/20/17 17:00 80 29 86/53 (64) 98 11/20/17 17:00 80 11/20/17 16:00 98.6 85 38 107/60 (76) 92 11/20/17 16:00 85 11/20/17 15:00 81 11/20/17 15:00 81 42 105/61 (76) 96 11/20/17 14:00 76 11/20/17 14:00 76 60 107/57 (74) 96 11/20/17 13:00 84 36 81/56 (64) 97 11/20/17 13:00 83 11/20/17 12:00 98.6 76 31 97/54 (68) 97 11/20/17 12:00 76 11/20/17 11:00 75 11/20/17 11:00 75 24 109/57 (74) 100 11/20/17 10:00 79 34 128/56 (80) 97 11/20/17 10:00 79 Physical Exam GENERAL: Patient is a well-nourished, well-developed male, awake and alert, not in respiratory distress. He is on nasal O2 SKIN: Cold and dry. No generalized rash, no ecchymoses and no evidence of embolic lesions. HEAD: Atraumatic. Normocephalic. No temporal wasting, or tenderness. EYES: Pale conjunctiva. No petechia or hemorrhage. Pupils equal, round and reactive to light. Extraocular movements full and intact. No scleral icterus. No injection or drainage. EARS, NOSE AND THROAT: Nose without bleeding or purulent nasal discharge. No sinus tenderness. Dry oral mucosa. NECK: Trachea midline. Supple and not tender, no meningeal signs CARDIOVASCULAR: Regular rate and rhythm. No murmurs, rubs or gallops heard RESPIRATORY: Coarse breath sounds bilaterally. Decreased at the bases. ABDOMEN: Soft, nondistended. Bowel sounds present and normoactive. He has tenderness in lower quadrants especially in suprapubic region. No guarding. No rebound. No organomegaly. : Ma in place with gross hematuria EXTREMITIES: No clubbing, cyanosis, or edema. No joint effusion, has good ROM. No calf tenderness. Cool feet. NEUROLOGICAL: Awake and alert. Cranial nerves grossly intact. Motor grossly within normal limits. PSYCHIATRIC: Normal affect, calm and cooperative. LINE: No evidence of infection Laboratory Laboratory Tests Test 11/20/17 11:15 11/21/17 00:04 11/21/17 04:26 White Blood Count 13.9 20.7 Red Blood Count 3.35 2.61 Hemoglobin 10.0 8.3 7.7 Hematocrit 29.7 24.8 22.9 Mean Corpuscular Volume 88.5 87.7 Mean Corpuscular Hemoglobin 29.8 29.6 Mean Corpuscular Hemoglobin Concent 33.7 33.7 Red Cell Distribution Width 16.3 16.1 Platelet Count 209 272 Mean Platelet Volume 9.2 9.3 Blood Urea Nitrogen 19 28 Creatinine 1.20 2.06 Random Glucose 157 160 Total Protein 5.7 5.3 Calcium Level 7.2 6.5 Phosphorus Level 2.0 3.4 Magnesium Level 2.3 2.1 Sodium Level 141 140 Potassium Level 3.5 4.4 Chloride Level 106 106 Carbon Dioxide Level 29.5 25.5 Anion Gap 6 9 Estimat Glomerular Filtration Rate 58 31 Protein Corrected Calcium 7.9 7.4 Troponin I 5.36 4.86 Neutrophils (%) (Auto) 85.0 Lymphocytes (%) (Auto) 7.8 Monocytes (%) (Auto) 6.8 Eosinophils (%) (Auto) 0.2 Basophils (%) (Auto) 0.2 Neutrophils # (Auto) 17.6 Lymphocytes # (Auto) 1.6 Monocytes # (Auto) 1.4 Eosinophils # (Auto) 0.0 Basophils # (Auto) 0.0 CBC Comment DIFF FINAL Differential Comment Date/Time Source Procedure Growth Status 3/7/18 00:30 Blood Peripheral Aerobic Blood Culture - Preliminary NO GROWTH IN 2 DAYS Resulted 11/18/17 00:30 Blood Peripheral Anaerobic Blood Culture - Preliminary NO GROWTH IN 2 DAYS Resulted 11/18/17 01:00 Urine Catheterized Urine Urine Culture - Final NO GROWTH IN 48 HOURS. Complete Result Diagram: 11/21/17 0426 11/21/17 0426 Imaging Chest X-Ray 11/21/17 0600 Signed Impressions: Service Date/Time: Tuesday, November 21, 2017 03:53 - CONCLUSION: Slightly improved bilateral airspace opacities. Eduin Landa MD Chest CT 11/20/17 0000 Signed Impressions: Service Date/Time: Monday, November 20, 2017 22:03 - CONCLUSION: Diffuse confluent airspace opacities throughout both lungs obscuring portions of the right middle lobe. There is associated large bilateral pleural effusions. Jesus Martinez MD Abdomen/Pelvis CT 11/19/17 0819 Signed Impressions: Service Date/Time: November 09:06 - CONCLUSION: 1. The bowel gas pattern remains within normal limits. No mechanical obstruction. 2. There is a right inguinal hernia containing loops of small and large bowel without obstruction. 3. There is a Ma catheter in urinary bladder. However, the balloon on the Ma catheter appears to be inflated within the prostatic urethra. This may need to be adjusted. 4. There continues to be mixed density within the urinary bladder as well as air. This is not significantly changed compared to the prior exam. 5. Diffuse enlargement of the prostate gland. 6. New bilateral pleural effusions as well as bibasilar infiltrates. Amador Leiva MD Abdomen X-Ray 11/18/17 0000 Signed Impressions: Service Date/Time: Saturday, November 18, 2017 16:18 - CONCLUSION: Unchanged bowel gas pattern. Jesus Deal Jr., MD Assessment and Plan Assessment and Plan IMPRESSION Leukocytosis most likely reactive due to urinary retention from obstruction related to blood clots Bilateral pulmonary infiltrates due to pulmonary edema - no clinical evidence of PNA, no cough or congestion, no fever BPH, with persistent gross hematuria Anemia due to blood loss from hematuria Acute rise in creatinine due to obstruction RECOMMENDATION Urology to reevaluate Check bladder scan Change Rocephin to Cefepime 2 BC Add Diflucan May need repeat cysto Follow C/S and CBC Monitor progress I will follow along with you Thank you for this consultation Discussed Condition With Sukhwinder/W Fabiola Davila MD Nov 21, 2017 10:03
[2017-11-21] MEDS: FLUCONAZOLE 100 MG TAB PO SCH (10:15)
[2017-11-21] MEDS ORDERED: SODIUM CHLOR 0.9% 1000 ML INJ 1,000 ML IV ONE (10:45)
[2017-11-21] MEDS ORDERED: FUROSEMIDE 20 MG/2 ML VIAL IV PUSH ONE ×2 (10:45→23:00)
[2017-11-21] MEDS ORDERED: SODIUM CHLOR 0.9% 1000 ML INJ 1,000 ML OTHER ONE (11:00)
[2017-11-21] MEDS: CEFEPIME INJ 1,000 MG in SODIUM CHLORIDE 0.9% INJ 100 ML IV SCH (11:24)
[2017-11-21] MEDS ORDERED: CALCIUM GLUCONATE 500 MG TAB PO ONE (11:30)
[2017-11-21] MEDS ORDERED: ACETAMINOPHEN 1000 MG/100 ML 100 ML IV PRN (11:30)
[2017-11-21 11:38] LABS: INTERNATIONAL NORMALIZED RATIO 1.2 RATIO; PROTHROMBIN TIME - PATIENT 12.2 SEC (9.8-11.6)
[2017-11-21] MEDS: INSULIN ASPART SUPPLEMENTAL SCALE SQ SCH ×3 (12:00→21:00)
--- NOTE | 2017-11-21 12:03 | HHI.CCPN ---
Subjective Remarks/Hospital Course 11/13: Patient is an 82-year-old male with past medical history of BPH, tobacco abuse who presented 11/12/2017 with dysuria, hematuria and urinary retention. Patient was admitted to the hospitalist service and underwent cystoscopy with fulguration by Dr. Lee. Was also placed on continuous bladder irrigation. Patient developed chest pain today a.m. EKG showed significant anterolateral ST elevation troponin bumped to 6.5 emergently taken to cardiac catheterization by Dr. Kelley. Received PCI, LAD stent,. Was loaded with 600 mg Plavix and was started on Aggrastat. Post stenting went to [facility] developed hypotension and was moved to the CVICU. Initially seen by Dr. Ryan patient had gross hematuria so O negative blood 2 units were ordered stat. I evaluated the patient in CVICU. He is persistently hypotensive receiving first 2 units of blood. Started on 1 mcg/min Levophed. Remains borderline hypotensive. Patient has significant gross hematuria, and is on CBI. He is anxious and complains about 9 out of 10 chest pain, I am starting on nitro drip. Patient may need IABP pain not resolved with nitro and Dilaudid/ Morphine. I have discussed with Dr. Kelley. 11/14: Resting comfortably in bed. Received 3 units PRBCs yesterday. Chest pain resolved currently. CBI with Amicar ongoing. Minimal pink tinged CBI fluid noted. 11/15: Resting comfortably. Denies SOB or abd pain. No chest pain currently. Reconsult 11/17: Patient 10 minute episode of reperfusion rhythm/V. tach. Potassium is 3.2. Magnesium 1.8 this a.m. Given 2 g mag sulfate IV 1 now. We placed on amiodarone drip. Discussed with Dr. Kelley will transfer to [facility] [place]. 11/18: Late entry note. Patient was noted to be hypokalemic this a.m. repletion provided. Patient denies any chest pain. Patient remains in sinus rhythm, amiodarone infusion continued. Family at bedside requesting possible transfer to another facility secondary to disappointment and care being provided. Case management consult initiated. EPS consulted, Dr. Jackson. Discussed with , family's request and plan of treatment. 11/19: Oxygen requirements increased overnight, now on partial rebreather ,chest x -ray showed new bilateral pleural effusions. IV fluids discontinued. Lasix 40 mg IV given 1 dose. The patient denies pain resting comfortably. Amiodarone continues IV infusion, plans to transition to PO today, discussed with Dr. Jackson. 11/20: Chest x-ray worsening, aggressive diuresis continued the patient received Lasix 80 mg yesterday. Patient continues on partial nonrebreather mask O2 sat 95% CT chest pending. Persistent leukocytosis noted ID has been consulted. Empiric antibiotics have been initiated. Patient had BM last evening, diet has been advanced to clear liquid per GI. 11/21: Afebrile. Patient denies chest pain. Slight improvement in chest x-ray, FiO2 requirement slightly decreased patient currently on O2 at 4 L nasal cannula. Patient continues to have bilateral pleural effusions and pulmonary edema, with slight improvement. Overnight the patient was noted to have urinary obstruction, Dr. Lee notified, 3-way Ma change from 22 Ugandan to 24F, patient was noted to have significant pain, patient received belladonna, Dilaudid and bladder was irrigated concurrently with a noted drop in blood pressure with a systolic in the 70s. Diuresis (Lasix) held for 24 hours , secondary to increasing creatinine to 2.0, possibly due to urinary obstruction last evening versus diuretic therapy. Noted resolution without medical intervention. Gross hematuria was again noted after placement of the new 3-way Ma. Hemoglobin at midnight was noted to be 8.3, no transfusion was provided, hemoglobin this a.m. 7.7, patient to be transfused 2 units packed red blood cells,with posttransfusion CBC. Patient was seen by ID, antibiotics per ID recommendations. Provided extensive discussion with family, regarding overnight events and plans for treatment today. 11/21 1300- Pt's MAP ranging 55-60. Risk and benefits discussed with family consent obtained from POA plan for central line placement and initiate Levophed infusion. Objective Vital Signs Date Time Temp Pulse Resp B/P (MAP) Pulse Ox O2 Delivery O2 Flow Rate FiO2 11/21/17 10:00 92 11/21/17 08:23 20 11/21/17 08:00 97.8 96/61 (73) 93 11/21/17 07:24 Partial Rebreather 15.00 11/18/17 19:12 100 Intake and Output 3/07/0111/21/17 11/22/17 08:00 16:00 00:00 Intake Total 470 ml Output Total 710 ml Balance -240 ml Result Diagram: 11/21/17 0426 11/21/17 0426 Imaging Last Impressions Abdomen/Pelvis CT 11/19/17 0819 Signed Impressions: Service Date/Time: November 09:06 - CONCLUSION: 1. The bowel gas pattern remains within normal limits. No mechanical obstruction. 2. There is a right inguinal hernia containing loops of small and large bowel without obstruction. 3. There is a Ma catheter in urinary bladder. However, the balloon on the Ma catheter appears to be inflated within the prostatic urethra. This may need to be adjusted. 4. There continues to be mixed density within the urinary bladder as well as air. This is not significantly changed compared to the prior exam. 5. Diffuse enlargement of the prostate gland. 6. New bilateral pleural effusions as well as bibasilar infiltrates. Amador Leiva MD Chest X-Ray 11/19/17 0600 Signed Impressions: Service Date/Time: November 03:30 - CONCLUSION: Progression of bilateral pulmonary disease in a pattern characteristic of interstitial and airspace pulmonary edema. There is a possible small right pleural effusion. Eduin Loo MD Abdomen X-Ray 11/18/17 0000 Signed Impressions: Service Date/Time: Saturday, November 18, 2017 16:18 - CONCLUSION: Unchanged bowel gas pattern. Jesus Deal Jr., MD Last Impressions Chest X-Ray 11/18/17 0600 Signed Impressions: Service Date/Time: Saturday, November 18, 2017 03:28 - CONCLUSION: New interstitial opacities bilaterally in a pattern characteristic of interstitial pulmonary edema. Eduin Loo MD Abdomen X-Ray 11/18/17 0000 Signed Impressions: Service Date/Time: Saturday, November 18, 2017 16:18 - CONCLUSION: Unchanged bowel gas pattern. Jesus Deal Jr., MD Abdomen/Pelvis CT 11/10/17 1210 Signed Impressions: Service Date/Time: Friday, November 10, 2017 12:47 - CONCLUSION: 1. Radiopaque material within the urinary bladder likely hematoma. Underlying mass cannot be excluded. 2. Mild wall thickening of the urinary bladder. 3. Enlarged prostate. 4. Right inguinal hernia containing small bowel loops without obstruction. 5. Diverticulosis without diverticulitis. 6. Small hiatal hernia. Mark Fitch MD Last Impressions Abdomen X-Ray 11/17/17 0000 Signed Impressions: Service Date/Time: Friday, November 17, 2017 08:42 - CONCLUSION: Nonspecific bowel gas pattern with stool in the colon. No evidence to suggest mechanical obstruction. Amador Leiva MD Chest X-Ray 11/14/17 0650 Signed Impressions: Service Date/Time: Tuesday, November 14, 2017 07:29 - CONCLUSION: Normal examination. Sudarshan Espino MD Abdomen/Pelvis CT 11/10/17 1210 Signed Impressions: Service Date/Time: Friday, November 10, 2017 12:47 - CONCLUSION: 1. Radiopaque material within the urinary bladder likely hematoma. Underlying mass cannot be excluded. 2. Mild wall thickening of the urinary bladder. 3. Enlarged prostate. 4. Right inguinal hernia containing small bowel loops without obstruction. 5. Diverticulosis without diverticulitis. 6. Small hiatal hernia. Mark Fitch MD Procedures Catheterization Objective Remarks GENERAL: Well-nourished, well-developed patient, lying in bed asleep but easily arousable. SKIN: Skin assessment warm/dry. HEAD: Normocephalic. EYES: Pallor+ NECK: Supple, trachea midline. + JVD CARDIOVASCULAR: Regular rate and rhythm S1, S2. No S4. Without murmurs, RESPIRATORY: Breath sounds equal bilaterally. Breath sounds diminished in bases. No accessory muscle use. GASTROINTESTINAL: Abdomen soft, nondistended. Right inguinal hernia : CBI ongoing with clear urine on return. MUSCULOSKELETAL: No cyanosis, or edema. NEURO: GCS 15. No obvious focal deficit. Moves extremities 4 A/P Assessment and Plan NEURO/PSYCH: Ofirmev 1 g IV every 8 hours as needed Hydromorphone 0.25 to 0.5 mg IV every 4 hours as needed pain Melatonin 5 mg daily at bedtime when necessary for insomnia RESP: Maintain O2 saturation greater than equal to 92%. Currently on nasal cannula at 4 L, O2 saturation 97-98% Incentive spirometry while awake Albuterol/ipratropium aerosols every 6 hours with albuterol aerosols every 2 hours as needed dyspnea 11/21 CXR-opacities slightly improved bilateral pleural effusions Lasix 40mg IV daily-discontinued 11/21 CV: STEMI s/p LAD Stent V. tach Elevated troponin Lactic acidosis 11/19 Currently on amiodarone drip transitioned to by mouth amiodarone this afternoon -On aspirin 162 mg daily with clopidogrel 75 mg daily per cardiology - Carvedilol 3.125 mg p.o. twice daily Atorvastatin 10 mg p.o. daily for dyslipidemia 2-D echo with low LVEF 35-40%. Anterior lateral wall akinesia. Consider BOBBY inhibitor. Defer to cardiology 11/18 Consulted EPS-medical management secondary to the criticality of the patient , plan for possible Life Vest/defibrillator , discussed with Dr. Renetta Chinchilla continue to down trend GI: Constipation Elevated AST Hypoalbuminemia Right inguinal hernia Diverticulosis Gastroenterology following CT abdomen/pelvis earlier this hospitalization revealed right inguinal hernia without signs of strangulation, hiatal hernia, diverticulosis without diverticulitis and BPH 11/19 CT abdomen and pelvis repeated-no change right inguinal hernia containing loops of small and large bowel no mechanical obstruction now new bilateral pleural effusions. BPH Pantoprazole for GI prophylaxis Bowel regimen 11/20 Advanced to clear liquid diet : Gross hematuria Status post cystoscopy and fulguration BPH -Monitor renal function closely. Continuous bladder irrigation with Amicar per urology -Further hematuria and CBI management per Jesus with aminocaproic acid- discontinued 11/20. Bladder to be flush every shift per urology orders.11/21 ( early am) Urinary obstruction replacement of three-way Ma 24 Ugandan. CBI resumed, gross hematuria Continue tamsulosin 0.4 mg p.o. daily Creatinine 1.7->2.06 possibly due to urinary obstruction last evening vs. diuretics. Patient will receive 10 mg Lasix 1 dose post transfusion of 2 units of packed red blood cells today 2/2 pulm edema, then will hold Lasix 24 hours, follow-up creatinine in a.m.. ID: Leukocytosis Blood cultures- NGTD 11/21 ID following- Dr. Juan Alberto Chowdhury changed to cefepime and Diflucan added to medication regimen (day 1) Repeat UA 11/17-follow up urine culture results 11/21F/U repeat blood cultures HEME: Normocytic anemia currently 11.4 Acute blood loss anemia -Status post 5 units PRBCs since admission -Monitor CBC CMP coags fibrinogen closely -Transfuse to keep hemoglobin more than [address] Kelley's request. -Follow-up Hemoccult results -Continued every 12 hour monitoring of H&H- 10->8.3->7.7 ENDO/FEN: Electrolyte derangement -Electrolyte replacement per protocol TSH normal PROPH: -Bilateral lower extremity SCDs. Chemical DVT prophylaxis is contraindicated at this time, organized clots flush from bladder. Continue SCDs LINES: -Utilize peripheral IVs my billing statement This patient remains critically ill with one or more organ systems which are or may become a threat to life. I have spent in excess of 49 minutes discontinuously in the care and management of this patient. This time is exclusive of procedures, and includes, but is not limited to, evaluation of the patient, review of the medical record, discussions with family, consultants, nursing staff, or respiratory therapy, and documentation in the medical record. Physician Tori Wilcox MD Nov 21, 2017 12:03
--- NOTE | 2017-11-21 13:46 | HHI.PR ---
Subjective Patient symptoms today Patient followed by Dr. Jesus Carney, catheter upsized to 24Fr 3way last night Difficult to irrigate Objective Vital Signs Vital Signs Date Time Temp Pulse Resp B/P (MAP) Pulse Ox O2 Delivery O2 Flow Rate FiO2 11/21/17 12:00 86 11/21/17 12:00 98.5 86 24 85/54 100 11/21/17 11:45 98.7 89 24 87/49 98 11/21/17 10:00 92 11/21/17 08:23 20 11/21/17 08:00 98 11/21/17 08:00 97.8 98 27 96/61 (73) 93 11/21/17 07:24 100 Partial Rebreather 15.00 11/21/17 06:00 100 11/21/17 04:00 97.6 97 22 74/45 (55) 100 11/21/17 04:00 97 11/21/17 02:00 91 11/21/17 00:00 101 11/21/17 00:00 98.3 101 39 91/56 (68) 97 11/20/17 22:00 93 11/20/17 20:00 92 11/20/17 20:00 98.9 92 32 100/54 (69) 95 11/20/17 19:40 96 Partial Rebreather 15.00 11/20/17 18:00 79 11/20/17 17:00 80 29 86/53 (64) 98 11/20/17 17:00 80 11/20/17 16:00 98.6 85 38 107/60 (76) 92 11/20/17 16:00 85 11/20/17 15:00 81 11/20/17 15:00 81 42 105/61 (76) 96 11/20/17 14:00 76 11/20/17 14:00 76 60 107/57 (74) 96 Intake & Output 11/21/17 11/21/17 07:00 19:00 Intake Total 1090 ml 25 ml Output Total 710 ml Balance 380 ml 25 ml Intake Oral 360 ml IV Total 730 ml Blood Product IV Normal Saline Flush 25 ml Output Urine Total 710 ml Bladder Scan Volume Amount 720 ml 17 ml # Bowel Movements 0 Result Diagram: 11/21/176 11/21/176 Imaging Last 24 hours Impressions Chest X-Ray 11/21/17 0600 Signed Impressions: Service Date/Time: Tuesday, November 21, 2017 03:53 - CONCLUSION: Slightly improved bilateral airspace opacities. Eduin Landa MD Objective Remarks 24Fr [address] Irrigated with normal saline, able to irrigate, no large clots noted, light red urine Medications and IVs Current Medications Medications (Trade) Dose Ordered Sig/Micheal Route Start Time Stop Time Status Last Admin (Narcan Inj) 0.4 mg UNSCH PRN IV PUSH 11/10/17 14:15 (Flomax) 0.4 mg DAILY PO 11/11/17 09:00 11/21/17 07:55 (Catapres) 0.1 mg Q6H PRN PO 11/10/17 18:15 11/11/17 20:52 Aminocaproic Acid 3000 mg/Sodium Chloride 3,012 ml @ 0 mls/hr UNSCH IRRIGATION 11/13/17 14:15 Future Hold 11/20/17 09:19 (NS Flush) 2 ml UNSCH PRN IV FLUSH 11/13/17 16:45 (NS Flush) 2 ml BID IV FLUSH 11/13/17 21:00 11/21/17 09:00 (Aspirin Chew) 162 mg DAILY PO 11/14/17 09:00 11/21/17 07:54 (Plavix) 75 mg DAILY PO 11/14/17 09:00 11/21/17 07:56 (Coreg) 3.125 mg BID PO 11/13/17 21:00 11/20/17 21:28 (Lipitor) 10 mg HS PO 11/13/17 21:00 11/20/17 21:02 Nitroglycerin/ Dextrose 250 ml @ 1.5 mls/hr TITRATE PRN IV 11/13/17 19:30 11/13/17 19:30 (Zofran Inj) 4 mg Q6HR PRN IV PUSH 11/13/17 19:30 11/18/17 04:04 Potassium Chloride 100 ml @ 50 mls/hr Q2H PRN IV 11/14/17 11:45 Potassium Chloride 100 ml @ 50 mls/hr Q2H PRN IV 11/14/17 11:45 11/15/17 06:45 Potassium Chloride 100 ml @ 25 mls/hr UNSCH PRN IV 11/14/17 11:45 Potassium Chloride 100 ml @ 50 mls/hr Q2H PRN IV 11/14/17 11:45 11/20/17 04:14 Magnesium Sulfate 4 gm/Sodium Chloride 100 ml @ 50 mls/hr UNSCH PRN IV 11/14/17 11:45 (Mag-Ox) 800 mg UNSCH PRN PO 11/14/17 11:45 Magnesium Sulfate 2 gm/Sodium Chloride 100 ml @ 50 mls/hr UNSCH PRN IV 11/14/17 11:45 (K-Phos) 2,000 mg Q4H PRN PO 11/14/17 11:45 11/20/17 18:54 Sodium Phosphate 30 mmol/Sodium Chloride 250 ml @ 42 mls/hr UNSCH PRN IV 11/14/17 11:45 (K-Phos) 2,000 mg UNSCH PRN PO/TUBE 11/14/17 11:45 Potassium Phosphate 30 mmol/ Sodium Chloride 260 ml @ 42 mls/hr UNSCH PRN IV 11/14/17 11:45 Aminocaproic Acid 1000 mg/Sodium Chloride 1,004 ml @ 0 mls/hr UNSCH IRRIGATION 11/14/17 17:00 Future Hold (Protonix Inj) 40 mg DAILY IV PUSH 11/17/17 09:00 11/21/17 07:54 (Miralax) 17 gm DAILY PO 11/17/17 11:00 11/21/17 07:54 (Reglan Inj) 5 mg Q8HR IV PUSH 11/17/17 22:00 11/21/17 05:09 Miscellaneous Information Patient in critical care unit? Ass... Q361D .XX 11/17/17 20:45 11/17/17 20:45 (Chlorhexidine 2% Cloth) 3 pack DAILY@04 TOPICAL 11/18/17 04:00 11/22/17 04:01 11/21/17 04:00 (Chlorhexidine 2% Cloth) 3 pack UNSCH PRN TOPICAL 11/17/17 20:45 11/22/17 20:32 (Dilaudid Pf Inj) 0.5 mg Q4H PRN IV 11/17/17 21:15 11/21/17 07:53 (Dilaudid Pf Inj) 0.2 mg Q4H PRN IV PUSH 11/17/17 21:15 Acetaminophen 100 ml @ 400 mls/hr Q8HR PRN IV 11/17/17 21:15 (Albuterol Neb) 2.5 mg Q2HR NEB PRN NEB 11/17/17 21:15 11/18/17 01:46 (Lelia-Colace) 1 tab BID PO 11/18/17 09:00 11/21/17 07:56 (Lactulose Liq) 30 ml DAILY PO 11/18/17 09:00 11/18/17 09:56 (Melatonin) 5 mg HS PRN PO 11/18/17 20:00 (Cordarone) 400 mg Q12HR PO 11/19/17 17:00 11/25/17 17:00 11/21/17 07:53 (Cordarone) 200 mg Q12H PO 11/26/17 05:00 Pharmacy Profile Note 0 ml @ 0 mls/hr UNSCH OTHER 11/20/17 16:45 (Duoneb Neb) 1 ampule Q6HR NEB NEB 11/21/17 10:00 (NovoLOG SUPPLEMENTAL SCALE) 1 ACHS SLIDING SCALE SQ 11/21/17 12:00 11/21/17 12:00 (D50w (Vial) Inj) 50 ml UNSCH PRN IV PUSH 11/21/17 09:30 (Glucagon Inj) 1 mg UNSCH PRN OTHER 11/21/17 09:30 Cefepime HCl 1000 mg/Sodium Chloride 100 ml @ 200 mls/hr Q24H IV 11/21/17 10:00 11/21/17 11:24 (Diflucan) 100 mg DAILY PO 11/21/17 10:15 11/21/17 10:15 Acetaminophen 100 ml @ 400 mls/hr Q6H PRN IV 11/21/17 11:30 11/23/17 11:30 Calcium Gluconate 2 gm/Sodium Chloride 120 ml @ 120 mls/hr ONCE ONCE IV 11/21/17 14:00 11/21/17 14:59 11/21/17 13:41 Assessment and Plan Assessment and Plan Patient with significant bladder spasms and hematuria No clots on bedside irrigation today Resume CBI May hand irrigate from the main drainage port prn Will follow Prakash Shi MD Nov 21, 2017 13:46
[2017-11-21] MEDS ORDERED: NOREPINEPHRINE 4 MG/D5W 250 ML IV PRN (14:00)
[2017-11-21] MEDS ORDERED: CALCIUM GLUCONATE INJ 2 GM in SODIUM CHLORIDE 0.9% INJ 100 ML IV ONE (14:00)
--- NOTE | 2017-11-21 14:19 | RADRPT ---
EXAM DATE/TIME: 11/21/2017 13:41 [facility] COMPARISON: CHEST SINGLE AP, November 21, 2017, 3:53. INDICATIONS : Post central line placement. MEDICAL HISTORY : Hypertension. SURGICAL HISTORY : Prostatectomy. ENCOUNTER: Subsequent ACUITY: 1 day PAIN SCORE: 0/10 LOCATION: Bilateral chest FINDINGS: Single AP view of the chest. Right IJ central venous catheter is in place with the tip in the distal SVC. No evidence of pneumothorax. Persistent bilateral pulmonary parenchymal opacity, slightly decrea sed from the prior study. No evidence of pleural effusion. Cardiomediastinal silhouette within normal limits. CONCLUSION: 1. Right IJ central venous catheter in place with the tip in the distal SVC. No evidence of pneumotho rax. 2. Slight decrease in bilateral pulmonary opacity. Da Villanueva MD on November 21, 2017 at 14:16 Board Certified Radiologist. This report was verified electronically.
--- NOTE | 2017-11-21 15:27 | PD.PROCEDR ---
Central Line Procedure REASON FOR PROCEDURE Central venous access PROCEDURE PERFORMED Central line placement: Right internal jugular CONSENT Informed consent for procedure was obtained POA, patient signed. The risks and benefits of the procedure were discussed to include but limited to bleeding, clot formation, infection, and even . ANESTHESIA Local injection of 1% Lidocaine DESCRIPTION OF THE PROCEDURE The patient was placed in supine, mild Trendelenburg position. The area was exposed and cleansed with ChloraPrep, times two. Large sterile drape was used to cover the patient, with the site exposed, under sterile conditions including cap, face mask, sterile gown, and sterile gloves. On single attempt, the introducer needle was inserted with negative pressure in syringe and venous flash was obtained. The guide wire was then advanced without any restriction and the needle was removed. The dilator was used without any complications. Using Seldinger technique the 7 F catheter was advanced over the guide wire to a depth of 17 centimeters. The guide wire was removed. All ports were aspirated with dark venous blood return and flushed easily with sterile saline. All ports were capped. Antibiotic disc was placed around central line at puncture site. The central line was secured to the skin with two interrupted 2.0 silk sutures. The area was bandaged with sterile see-through central line bandage. Due to patient's diaphoresis patient's line was sutured in place. StatLock unable to adhere. RADIOLOGICAL DATA Ultrasound guidance was used to locate IJ. Doppler/color flow was used to confirm venous flow. Chest x-ray pending COMPLICATIONS: No apparent complications ESTIMATED BLOOD LOSS: Less than 1 cc. Tori Del Rio MD Nov 21, 2017 15:27
[2017-11-21 19:11] LABS: HEMATOCRIT 23.1 % (39.0-51.0); HEMOGLOBIN 7.8 GM/DL (13.0-17.0)
[2017-11-21] MEDS: ATORVASTATIN 10 MG TAB PO SCH (19:48)
[2017-11-21 22:41] LABS: HEMATOCRIT 24.6 % (39.0-51.0); HEMOGLOBIN 8.4 GM/DL (13.0-17.0)
[2017-11-22] VITALS (16 sets, daily range): BP systolic 103–139; BP diastolic 54–74; PULSE 73–89; RESP 14–25; TEMP 98–98.7; O2SAT 96–100
[2017-11-22] MEDS: RESP: ALBUTEROL 2.5 MG/IPRATROPIUM 0.5 MG NEB (SCH) NEB ×4 (03:23→21:14)
[2017-11-22] MEDS: CHLORHEXIDINE GLUCONATE 2 % 1 PACK (2 CLOTHS)(taper/protocol) TOPICAL SCH (04:00)
[2017-11-22 04:22] LABS: AUTOMATED NEUTROPHIL # 12.5 TH/MM3 (1.8-7.7); BASOPHIL % 0.1 % (0.0-2.0); EOSINOPHIL # 0.2 TH/MM3 (0-0.4); HEMATOCRIT 24.4 % (39.0-51.0); HEMOGLOBIN 8.4 GM/DL (13.0-17.0); LYMPH % 12.8 % (9.0-44.0); MEAN CELL VOLUME 86.2 FL (80.0-100.0); MEAN CORPUSCULAR HEMOGLOBIN 29.7 PG (27.0-34.0); MEAN CORPUSCULAR HGB CONC 34.4 % (32.0-36.0); MEAN PLATELET VOLUME 9.5 FL (7.0-11.0); MONO % 6.7 % (0.0-8.0); MONOCYTE # 1.1 TH/MM3 (0-0.9); NEUT % 79.4 % (16.0-70.0); PLATELET COUNT 188 TH/MM3 (150-450); RED BLOOD COUNT 2.82 MIL/MM3 (4.50-5.90); RED CELL DISTRIBUTION WIDTH 15.5 % (11.6-17.2); WHITE BLOOD COUNT 15.8 TH/MM3 (4.0-11.0)
[2017-11-22 04:43] LABS: BICARBONATE 24.1 MEQ/L (21.0-32.0); CALCIUM 7.6 MG/DL (8.5-10.1); CREATININE 4.05 MG/DL (0.60-1.30); MAGNESIUM 2.3 MG/DL (1.5-2.5); PHOSPHORUS 5.7 MG/DL (2.5-4.9); RANDOM VANCOMYCIN 21.9 COMMENT
[2017-11-22] MEDS: METOCLOPRAMIDE HCL 10 MG/2 ML VIAL IV PUSH SCH ×3 (05:45→20:58)
--- NOTE | 2017-11-22 05:51 | RADRPT ---
EXAM DATE/TIME: 11/22/2017 03:35 [facility] COMPARISON: CHEST SINGLE AP, November 21, 2017, 13:41. INDICATIONS : Shortness of breath, possible pulmonary disease. MEDICAL HISTORY : Hypertension. SURGICAL HISTORY : Prostatectomy. ENCOUNTER: Subsequent ACUITY: 1 week PAIN SCORE: Non-responsive. LOCATION: Bilateral chest FINDINGS: Patchy air space opacities in both lungs persist, right slightly worse than left but neither side sig nificantly changed in the interim. Small, bilateral pleural effusions would not be surprising. I don' t see a large effusion. No pneumothorax. Heart size stable, upper limits of normal. Right IJ central venous catheter with tip in the superior vena cava again noted. CONCLUSION: No significant change. Persistent patchy bilateral airspace opacities. Eduin Landa MD on November 22, 2017 at 5:49 Board Certified Radiologist. This report was verified electronically.
[2017-11-22] MEDS: INSULIN ASPART SUPPLEMENTAL SCALE SQ SCH ×4 (08:00→20:57)
[2017-11-22] MEDS: FLUCONAZOLE 100 MG TAB PO SCH (08:10)
[2017-11-22] MEDS: DOCUSATE SODIUM 50 MG/SENNA 8.6 MG TAB PO SCH ×2 (08:10→20:56)
[2017-11-22] MEDS: TAMSULOSIN HCL 0.4 MG CAP PO SCH (08:10)
[2017-11-22] MEDS: AMIODARONE 200 MG TAB PO SCH ×2 (08:11→20:57)
[2017-11-22] MEDS: CARVEDILOL 3.125 MG TAB PO SCH ×3 (08:11→21:24)
[2017-11-22] MEDS: PANTOPRAZOLE SODIUM 40 MG VIAL IV PUSH SCH (08:11)
[2017-11-22] MEDS: ASPIRIN 81 MG CHEW TAB PO SCH (08:11)
[2017-11-22] MEDS: LACTULOSE SYRUP 20 GM/30 ML CUP PO SCH (08:12)
[2017-11-22] MEDS: CLOPIDOGREL 75 MG TAB PO SCH (08:12)
[2017-11-22] MEDS: POLYETHYLENE GLYCOL 17 GM PKG PO SCH (08:12)
[2017-11-22] MEDS: SODIUM CHLORIDE 0.9% FLUSH 10 ML FLUSH IV FLUSH SCH ×2 (08:12→20:57)
[2017-11-22] MEDS ORDERED: CALCIUM GLUCONATE INJ 1 GM in SODIUM CHLORIDE 0.9% INJ 100 ML IV ONE (08:30)
--- NOTE | 2017-11-22 09:54 | HHI.IDPN ---
Subjective Subjective Remarks Patient is an 82-year-old male presented to the hospital for evaluation of hematuria. Patient has known BPH, and last year around the same time he was admitted for hematuria and suprapubic pain. He underwent cystoscopy and evacuation of clots, fulguration of the bleeding site within the prostatic urethra, and a Hernández catheter was removed. He followed up with the urologist after about 4 days, and apparently has not had any problem with hematuria up until this admission. Urology was consulted. Patient had continuous bladder irrigation, and his bleeding was not being controlled, so he underwent cystoscopy and fulguration of the prostatic bleeding. Since then he's had problem with persistent hematuria. His hemoglobin had dropped requiring blood transfusion. On November 13 he complained of chest pain, and EKGs changes showed an acute SD. Cardiac catheter was done. Patient also has had problem with VT, and that seems to be under control with medications. On November 29 start having problem with increasing oxygen requirement. His chest x-ray has shown no bilateral infiltrates with effusions. He has been afebrile. He states he still has some shortness of breath but not worse. He is on nasal O2. His hemodynamics are okay. Today his white count went up to 20,000, an infectious disease consultation has been requested to evaluate the patient. Patient's hematuria has been under control and he has blood-tinged urine. However overnight he started having monica hematuria. His Hernández catheter was changed and a bigger size was placed. Bladder scan yesterday was 720, and he had a good urine output after replacement of the Hernández. As of this morning, patient has monica hematuria, and has low output. He is complaining of lower abdominal pain. There has been no diarrhea. He denies any cough or chest congestion. He denies chest pain. There is been no nausea or vomiting. He is swallowing okay. Patient has no central line. Patient has been on multiple antibiotics. He was on Cipro from November 10 2 November 16. He has been on Rocephin since November 17, and he got 1 dose of vancomycin yesterday. Infectious disease consultation has been requested to evaluate the patient. Notes reviewed D/W RN Bladder scan yesterday only 17 ml Urology notes reviewed RN states she changed hernández and got out a lot of blood clots Getting CBI urine currently blood tinged Creatinine up to 4.05 Has not gotten contrast for his last 2 CT (chest/A/P) Good UO recorded On nasal O2 Antibiotics Current Medications Cefepime Medications (Trade) Dose Ordered Sig/Micheal Route Start Time Stop Time Status Last Admin (Narcan Inj) 0.4 mg UNSCH PRN IV PUSH 11/10/17 14:15 (Flomax) 0.4 mg DAILY PO 11/11/17 09:00 11/22/17 08:10 (Catapres) 0.1 mg Q6H PRN PO 11/10/17 18:15 11/11/17 20:52 Aminocaproic Acid 3000 mg/Sodium Chloride 3,012 ml @ 0 mls/hr UNSCH IRRIGATION 11/13/17 14:15 Future Hold 11/20/17 09:19 (NS Flush) 2 ml UNSCH PRN IV FLUSH 11/13/17 16:45 (NS Flush) 2 ml BID IV FLUSH 11/13/17 21:00 11/22/17 08:12 (Aspirin Chew) 162 mg DAILY PO 11/14/17 09:00 11/22/17 08:11 (Plavix) 75 mg DAILY PO 11/14/17 09:00 11/22/17 08:12 (Coreg) 3.125 mg BID PO 11/13/17 21:00 11/20/17 21:28 (Lipitor) 10 mg HS PO 11/13/17 21:00 11/21/17 19:48 Nitroglycerin/ Dextrose 250 ml @ 1.5 mls/hr TITRATE PRN IV 11/13/17 19:30 11/13/17 19:30 (Zofran Inj) 4 mg Q6HR PRN IV PUSH 11/13/17 19:30 11/18/17 04:04 Potassium Chloride 100 ml @ 50 mls/hr Q2H PRN IV 11/14/17 11:45 Potassium Chloride 100 ml @ 50 mls/hr Q2H PRN IV 11/14/17 11:45 11/15/17 06:45 Potassium Chloride 100 ml @ 25 mls/hr UNSCH PRN IV 11/14/17 11:45 Potassium Chloride 100 ml @ 50 mls/hr Q2H PRN IV 11/14/17 11:45 11/20/17 04:14 Magnesium Sulfate 4 gm/Sodium Chloride 100 ml @ 50 mls/hr UNSCH PRN IV 11/14/17 11:45 (Mag-Ox) 800 mg UNSCH PRN PO 11/14/17 11:45 Magnesium Sulfate 2 gm/Sodium Chloride 100 ml @ 50 mls/hr UNSCH PRN IV 11/14/17 11:45 (K-Phos) 2,000 mg Q4H PRN PO 11/14/17 11:45 11/20/17 18:54 Sodium Phosphate 30 mmol/Sodium Chloride 250 ml @ 42 mls/hr UNSCH PRN IV 11/14/17 11:45 (K-Phos) 2,000 mg UNSCH PRN PO/TUBE 11/14/17 11:45 Potassium Phosphate 30 mmol/ Sodium Chloride 260 ml @ 42 mls/hr UNSCH PRN IV 11/14/17 11:45 Aminocaproic Acid 1000 mg/Sodium Chloride 1,004 ml @ 0 mls/hr UNSCH IRRIGATION 11/14/17 17:00 Future Hold (Protonix Inj) 40 mg DAILY IV PUSH 11/17/17 09:00 11/22/17 08:11 (Miralax) 17 gm DAILY PO 11/17/17 11:00 11/22/17 08:12 (Reglan Inj) 5 mg Q8HR IV PUSH 11/17/17 22:00 11/21/17 20:59 Miscellaneous Information Patient in critical care unit? Ass... Q361D .XX 11/17/17 20:45 11/17/17 20:45 (Chlorhexidine 2% Cloth) 3 pack UNSCH PRN TOPICAL 11/17/17 20:45 11/22/17 20:32 (Dilaudid Pf Inj) 0.5 mg Q4H PRN IV 11/17/17 21:15 11/21/17 17:43 (Dilaudid Pf Inj) 0.2 mg Q4H PRN IV PUSH 11/17/17 21:15 Acetaminophen 100 ml @ 400 mls/hr Q8HR PRN IV 11/17/17 21:15 (Albuterol Neb) 2.5 mg Q2HR NEB PRN NEB 11/17/17 21:15 11/18/17 01:46 (Lelia-Colace) 1 tab BID PO 11/18/17 09:00 11/22/17 08:10 (Lactulose Liq) 30 ml DAILY PO 11/18/17 09:00 11/22/17 08:12 (Melatonin) 5 mg HS PRN PO 11/18/17 20:00 (Cordarone) 400 mg Q12HR PO 11/19/17 17:00 11/25/17 17:00 11/22/17 08:11 (Cordarone) 200 mg Q12H PO 11/26/17 05:00 Pharmacy Profile Note 0 ml @ 0 mls/hr UNSCH OTHER 11/20/17 16:45 (Duoneb Neb) 1 ampule Q6HR NEB NEB 11/21/17 10:00 11/22/17 08:30 (NovoLOG SUPPLEMENTAL SCALE) 1 ACHS SLIDING SCALE SQ 11/21/17 12:00 11/21/17 21:00 (D50w (Vial) Inj) 50 ml UNSCH PRN IV PUSH 11/21/17 09:30 (Glucagon Inj) 1 mg UNSCH PRN OTHER 11/21/17 09:30 Cefepime HCl 1000 mg/Sodium Chloride 100 ml @ 200 mls/hr Q24H IV 11/21/17 10:00 11/21/17 11:24 (Diflucan) 100 mg DAILY PO 11/21/17 10:15 11/22/17 08:10 Acetaminophen 100 ml @ 400 mls/hr Q6H PRN IV 11/21/17 11:30 11/23/17 11:30 Norepinephrine Bitartrate 250 ml @ 7.5 mls/hr TITRATE PRN IV 11/21/17 14:00 11/21/17 15:07 Past Medical History BPH Hypertension Previous episode of hematuria in 2017 Past Surgical History TURP 2006 Allergies: Coded Allergies: No Known Allergies (Verified Allergy, Unknown, 11/10/17) Objective . Vital Signs Date Time Temp Pulse Resp B/P (MAP) Pulse Ox O2 Delivery O2 Flow Rate FiO2 11/22/17 08:31 99 Nasal Cannula 3.00 11/22/17 08:00 78 11/22/17 08:00 98.4 78 20 122/57 (78) 100 11/22/17 06:00 89 11/22/17 06:00 79 139/74 (95) 11/22/17 04:00 98.0 79 18 103/55 (71) 96 11/22/17 04:00 79 11/22/17 02:00 75 11/22/17 00:00 79 11/22/17 00:00 98.4 79 17 109/54 (72) 99 11/21/17 22:00 78 11/21/17 21:09 95 Nasal Cannula 3.00 11/21/17 21:02 98.2 80 19 111/58 99 11/21/17 20:00 98.2 80 25 120/57 (78) 98 11/21/17 20:00 79 11/21/17 18:00 90 103/50 (67) 11/21/17 18:00 90 11/21/17 17:00 89 117/59 (78) 11/21/17 16:28 87 116/58 11/21/17 16:27 98.6 92 18 116/58 96 11/21/17 16:19 98.4 88 18 116/58 100 11/21/17 16:00 87 11/21/17 16:00 98.4 87 22 124/56 (78) 96 11/21/17 15:07 90 75/46 11/21/17 15:01 20 11/21/17 14:00 89 11/21/17 12:00 86 11/21/17 12:00 98.5 86 24 85/54 100 11/21/17 12:00 97.8 92 22 85/67 (73) 100 11/21/17 11:45 98.7 89 24 87/49 98 11/21/17 10:00 92 11/22/17 11/22/17 11/23/17 15:00 23:00 07:00 Output Total 200 ml Balance -200 ml Output Urine Total 200 ml . Laboratory Tests Test 11/20/17 11:15 11/21/17 00:04 11/21/17 04:26 11/21/17 18:20 White Blood Count 13.9 TH/MM3 20.7 TH/MM3 Red Blood Count 3.35 MIL/MM3 2.61 MIL/MM3 Hemoglobin 10.0 GM/DL 8.3 GM/DL 7.7 GM/DL 7.8 GM/DL Hematocrit 29.7 % 24.8 % 22.9 % 23.1 % Mean Corpuscular Volume 88.5 FL 87.7 FL Mean Corpuscular Hemoglobin 29.8 PG 29.6 PG Mean Corpuscular Hemoglobin Concent 33.7 % 33.7 % Red Cell Distribution Width 16.3 % 16.1 % Platelet Count 209 TH/MM3 272 TH/MM3 Mean Platelet Volume 9.2 FL 9.3 FL Neutrophils (%) (Auto) 85.0 % Lymphocytes (%) (Auto) 7.8 % Monocytes (%) (Auto) 6.8 % Eosinophils (%) (Auto) 0.2 % Basophils (%) (Auto) 0.2 % Neutrophils # (Auto) 17.6 TH/MM3 Lymphocytes # (Auto) 1.6 TH/MM3 Monocytes # (Auto) 1.4 TH/MM3 Eosinophils # (Auto) 0.0 TH/MM3 Basophils # (Auto) 0.0 TH/MM3 CBC Comment DIFF FINAL Differential Comment Test 11/21/17 22:00 11/22/17 03:40 Hemoglobin 8.4 GM/DL 8.4 GM/DL Hematocrit 24.6 % 24.4 % White Blood Count 15.8 TH/MM3 Red Blood Count 2.82 MIL/MM3 Mean Corpuscular Volume 86.2 FL Mean Corpuscular Hemoglobin 29.7 PG Mean Corpuscular Hemoglobin Concent 34.4 % Red Cell Distribution Width 15.5 % Platelet Count 188 TH/MM3 Mean Platelet Volume 9.5 FL Neutrophils (%) (Auto) 79.4 % Lymphocytes (%) (Auto) 12.8 % Monocytes (%) (Auto) 6.7 % Eosinophils (%) (Auto) 1.0 % Basophils (%) (Auto) 0.1 % Neutrophils # (Auto) 12.5 TH/MM3 Lymphocytes # (Auto) 2.0 TH/MM3 Monocytes # (Auto) 1.1 TH/MM3 Eosinophils # (Auto) 0.2 TH/MM3 Basophils # (Auto) 0.0 TH/MM3 CBC Comment DIFF FINAL Differential Comment Laboratory Tests Test 11/20/17 11:15 11/21/17 04:26 11/22/17 03:40 Blood Urea Nitrogen 19 MG/DL 28 MG/DL 48 MG/DL Creatinine 1.20 MG/DL 2.06 MG/DL 4.05 MG/DL Random Glucose 157 MG/DL 160 MG/DL 117 MG/DL Total Protein 5.7 GM/DL 5.3 GM/DL Calcium Level 7.2 MG/DL 6.5 MG/DL 7.6 MG/DL Phosphorus Level 2.0 MG/DL 3.4 MG/DL 5.7 MG/DL Magnesium Level 2.3 MG/DL 2.1 MG/DL 2.3 MG/DL Sodium Level 141 MEQ/L 140 MEQ/L 139 MEQ/L Potassium Level 3.5 MEQ/L 4.4 MEQ/L 3.8 MEQ/L Chloride Level 106 MEQ/L 106 MEQ/L 103 MEQ/L Carbon Dioxide Level 29.5 MEQ/L 25.5 MEQ/L 24.1 MEQ/L Anion Gap 6 MEQ/L 9 MEQ/L 12 MEQ/L Estimat Glomerular Filtration Rate 58 ML/MIN 31 ML/MIN 14 ML/MIN Protein Corrected Calcium 7.9 MG/DL 7.4 MG/DL Troponin I 5.36 NG/ML 4.86 NG/ML Microbiology Date/Time Source Procedure Growth Status 11/21/17 11:05 Blood Peripheral Aerobic Blood Culture Pending Received 11/21/17 11:05 Blood Peripheral Anaerobic Blood Culture Pending Received 11/21/17 10:55 Blood Peripheral Aerobic Blood Culture Pending Received 11/21/17 10:55 Blood Peripheral Anaerobic Blood Culture Pending Received Imaging Last Impressions Chest X-Ray 11/22/17 0600 Signed Impressions: Service Date/Time: Wednesday, November 22, 2017 03:35 - CONCLUSION: No significant change. Persistent patchy bilateral airspace opacities. Eduin Landa MD Chest CT 11/20/17 0000 Signed Impressions: Service Date/Time: Monday, November 20, 2017 22:03 - CONCLUSION: Diffuse confluent airspace opacities throughout both lungs obscuring portions of the right middle lobe. There is associated large bilateral pleural effusions. Jesus Martinez MD Abdomen/Pelvis CT 11/19/17 0819 Signed Impressions: Service Date/Time: November 09:06 - CONCLUSION: 1. The bowel gas pattern remains within normal limits. No mechanical obstruction. 2. There is a right inguinal hernia containing loops of small and large bowel without obstruction. 3. There is a Hernández catheter in urinary bladder. However, the balloon on the Hernández catheter appears to be inflated within the prostatic urethra. This may need to be adjusted. 4. There continues to be mixed density within the urinary bladder as well as air. This is not significantly changed compared to the prior exam. 5. Diffuse enlargement of the prostate gland. 6. New bilateral pleural effusions as well as bibasilar infiltrates. Amador Leiva MD Abdomen X-Ray 11/18/17 0000 Signed Impressions: Service Date/Time: Saturday, November 18, 2017 16:18 - CONCLUSION: Unchanged bowel gas pattern. Jesus Deal Jr., MD Physical Exam GENERAL: awake and alert, not in respiratory distress. He is on nasal O2 SKIN: Cold and dry. No generalized rash, no ecchymoses and no evidence of embolic lesions. HEAD: Atraumatic. Normocephalic. No temporal wasting, or tenderness. EYES: Pale conjunctiva. No petechia or hemorrhage. Pupils equal, round and reactive to light. Extraocular movements full and intact. No scleral icterus. No injection or drainage. EARS, NOSE AND THROAT: Nose without bleeding or purulent nasal discharge. No sinus tenderness. Dry oral mucosa. NECK: Trachea midline. Supple and not tender, no meningeal signs CARDIOVASCULAR: Regular rate and rhythm. No murmurs, rubs or gallops heard RESPIRATORY: Coarse breath sounds bilaterally. Decreased at the bases. ABDOMEN: Soft, nondistended. Bowel sounds present and normoactive. He has mild tenderness in lower quadrants especially in suprapubic region. No guarding. No rebound. No organomegaly. : Hernández in place with blood tinged urine EXTREMITIES: No clubbing, cyanosis, or edema. No joint effusion, has good ROM. No calf tenderness. Cool feet. NEUROLOGICAL: Awake and alert. Cranial nerves grossly intact. Motor grossly within normal limits. PSYCHIATRIC: Normal affect, calm and cooperative. LINE: No evidence of infection Assessment & Plan Remarks IMPRESSION Leukocytosis most likely reactive due to urinary retention from obstruction related to blood clots - WBC better Bilateral pulmonary infiltrates due to pulmonary edema - no clinical evidence of PNA, no cough or congestion, no fever BPH, with persistent gross hematuria Anemia due to blood loss from hematuria Acute rise in creatinine, etiology? RECOMMENDATION Continue Cefepime Continue Diflucan Follow C/S Renal US today to evaluate if obstructed May need repeat cysto Follow CBC Monitor progress D/W Fabiola Davila MD Nov 22, 2017 09:54
[2017-11-22] MEDS: CEFEPIME INJ 1,000 MG in SODIUM CHLORIDE 0.9% INJ 100 ML IV SCH (10:17)
--- NOTE | 2017-11-22 11:39 | RADRPT ---
EXAM DATE/TIME: 11/22/2017 10:23 [facility] COMPARISON: No previous studies available for comparison. INDICATIONS : Hematuria. MEDICAL HISTORY : Hypertension. Dyspnea. Hematuria. SURGICAL HISTORY : Prostatectomy. ENCOUNTER: Initial ACUITY: 1 day PAIN SCORE: 2/10 LOCATION: Bilateral flank MEASUREMENTS: RIGHT KIDNEY: 10.1 x 5.4 x 5.9 cm LEFT KIDNEY: 11.8 x 5.9 x 6.3 cm FINDINGS: RIGHT KIDNEY: Renal cortex is normal in thickness and echotexture. No hydronephrosis, stone, or mass. 2.6 cm cyst is identified in the upper pole LEFT KIDNEY: Renal cortex is normal in thickness and echotexture. No hydronephrosis, stone, or mass. BLADDER: Large intraluminal filling defect is identified within the bladder encased in a Ma. CONCLUSION: 1. Intraluminal mass versus debris within the urinary bladder completely encasing the Ma catheter. 2. Simple right renal cyst. 3. No evidence of hydronephrosis. Isaias Hanna MD on November 22, 2017 at 11:35 Board Certified Radiologist. This report was verified electronically.
--- NOTE | 2017-11-22 12:47 | HHI.CCPN ---
Subjective Remarks/Hospital Course 11/13: Patient is an 82-year-old male with past medical history of BPH, tobacco abuse who presented 11/12/2017 with dysuria, hematuria and urinary retention. Patient was admitted to the hospitalist service and underwent cystoscopy with fulguration by Dr. Lee. Was also placed on continuous bladder irrigation. Patient developed chest pain today a.m. EKG showed significant anterolateral ST elevation troponin bumped to 6.5 emergently taken to cardiac catheterization by Dr. Kelley. Received PCI, LAD stent,. Was loaded with 600 mg Plavix and was started on Aggrastat. Post stenting went to [facility] developed hypotension and was moved to the CVICU. Initially seen by Dr. Ryan patient had gross hematuria so O negative blood 2 units were ordered stat. I evaluated the patient in CVICU. He is persistently hypotensive receiving first 2 units of blood. Started on 1 mcg/min Levophed. Remains borderline hypotensive. Patient has significant gross hematuria, and is on CBI. He is anxious and complains about 9 out of 10 chest pain, I am starting on nitro drip. Patient may need IABP pain not resolved with nitro and Dilaudid/ Morphine. I have discussed with Dr. Kelley. 11/14: Resting comfortably in bed. Received 3 units PRBCs yesterday. Chest pain resolved currently. CBI with Amicar ongoing. Minimal pink tinged CBI fluid noted. 11/15: Resting comfortably. Denies SOB or abd pain. No chest pain currently. Reconsult 11/17: Patient 10 minute episode of reperfusion rhythm/V. tach. Potassium is 3.2. Magnesium 1.8 this a.m. Given 2 g mag sulfate IV 1 now. We placed on amiodarone drip. Discussed with Dr. Kelley will transfer to [facility]. 11/18: Late entry note. Patient was noted to be hypokalemic this a.m. repletion provided. Patient denies any chest pain. Patient remains in sinus rhythm, amiodarone infusion continued. Family at bedside requesting possible transfer to another facility secondary to disappointment and care being provided. Case management consult initiated. EPS consulted, Dr. Jackson. Discussed with , family's request and plan of treatment. 11/19: Oxygen requirements increased overnight, now on partial rebreather ,chest x -ray showed new bilateral pleural effusions. IV fluids discontinued. Lasix 40 mg IV given 1 dose. The patient denies pain resting comfortably. Amiodarone continues IV infusion, plans to transition to PO today, discussed with Dr. Jackson. 11/20: Chest x-ray worsening, aggressive diuresis continued the patient received Lasix 80 mg yesterday. Patient continues on partial nonrebreather mask O2 sat 95% CT chest pending. Persistent leukocytosis noted ID has been consulted. Empiric antibiotics have been initiated. Patient had BM last evening, diet has been advanced to clear liquid per GI. 11/21: Afebrile. Patient denies chest pain. Slight improvement in chest x-ray, FiO2 requirement slightly decreased patient currently on O2 at 4 L nasal cannula. Patient continues to have bilateral pleural effusions and pulmonary edema, with slight improvement. Overnight the patient was noted to have urinary obstruction, Dr. Lee notified, 3-way Hernández change from 22 Gambian to 24F, patient was noted to have significant pain, patient received belladonna, Dilaudid and bladder was irrigated concurrently with a noted drop in blood pressure with a systolic in the 70s. Diuresis (Lasix) held for 24 hours , secondary to increasing creatinine to 2.0, possibly due to urinary obstruction last evening versus diuretic therapy. Noted resolution without medical intervention. Gross hematuria was again noted after placement of the new 3-way Hernández. Hemoglobin at midnight was noted to be 8.3, no transfusion was provided, hemoglobin this a.m. 7.7, patient to be transfused 2 units packed red blood cells,with posttransfusion CBC. Patient was seen by ID, antibiotics per ID recommendations. Provided extensive discussion with family, regarding overnight events and plans for treatment today. 11/21: 1300- Pt's MAP ranging 55-60. Risk and benefits discussed with family consent obtained from POA plan for central line placement and initiate Levophed infusion. 11/22: Norepinephrine discontinued at 1900 last evening. The patient remains hemodynamically stable. A.m labs reveal elevated creatinine, concern for obstruction, renal ultrasound performed, Dr. Shi notified of results.Renal US revealed mass versus debris obstructing lumen of Hernández Patient denies pain, CBI continued. Hemoglobin 8.21 unit of packed red blood cells being transfused to maintain HGB 9.0.Multiple repeated flushing and irrigation of hernández. Repeat BMP pending. Objective Vital Signs Date Time Temp Pulse Resp B/P (MAP) Pulse Ox O2 Delivery O2 Flow Rate FiO2 11/22/17 12:00 77 11/22/17 12:00 98.7 19 115/61 (79) 96 11/22/17 08:31 Nasal Cannula 3.00 11/18/17 19:12 100 Intake and Output 11/22/17 11/22/17 11/23/17 08:00 16:00 00:00 Intake Total 100 ml 10 ml Output Total 750 ml 1100 ml Balance -650 ml -1090 ml Result Diagram: 11/22/17 0340 11/22/17 0340 Imaging Last Impressions Abdomen/Pelvis CT 11/19/17 0819 Signed Impressions: Service Date/Time: November 09:06 - CONCLUSION: 1. The bowel gas pattern remains within normal limits. No mechanical obstruction. 2. There is a right inguinal hernia containing loops of small and large bowel without obstruction. 3. There is a Hernández catheter in urinary bladder. However, the balloon on the Hernández catheter appears to be inflated within the prostatic urethra. This may need to be adjusted. 4. There continues to be mixed density within the urinary bladder as well as air. This is not significantly changed compared to the prior exam. 5. Diffuse enlargement of the prostate gland. 6. New bilateral pleural effusions as well as bibasilar infiltrates. Amador Leiva MD Chest X-Ray 11/19/17 06 Signed Impressions: Service Date/Time: November 03:30 - CONCLUSION: Progression of bilateral pulmonary disease in a pattern characteristic of interstitial and airspace pulmonary edema. There is a possible small right pleural effusion. Eduin Loo MD Abdomen X-Ray 11/18/17 0000 Signed Impressions: Service Date/Time: Saturday, November 18, 2017 16:18 - CONCLUSION: Unchanged bowel gas pattern. Jesus Deal Jr., MD Last Impressions Chest X-Ray 11/18/17 0600 Signed Impressions: Service Date/Time: Saturday, November 18, 2017 03:28 - CONCLUSION: New interstitial opacities bilaterally in a pattern characteristic of interstitial pulmonary edema. Eduin Loo MD Abdomen X-Ray 11/18/17 0000 Signed Impressions: Service Date/Time: Saturday, November 18, 2017 16:18 - CONCLUSION: Unchanged bowel gas pattern. Jesus Deal Jr., MD Abdomen/Pelvis CT 11/10/17 1210 Signed Impressions: Service Date/Time: Friday, November 10, 2017 12:47 - CONCLUSION: 1. Radiopaque material within the urinary bladder likely hematoma. Underlying mass cannot be excluded. 2. Mild wall thickening of the urinary bladder. 3. Enlarged prostate. 4. Right inguinal hernia containing small bowel loops without obstruction. 5. Diverticulosis without diverticulitis. 6. Small hiatal hernia. Mark Fitch MD Last Impressions Abdomen X-Ray 11/17/17 0000 Signed Impressions: Service Date/Time: Friday, November 17, 2017 08:42 - CONCLUSION: Nonspecific bowel gas pattern with stool in the colon. No evidence to suggest mechanical obstruction. Amador Leiva MD Chest X-Ray 11/14/17 0650 Signed Impressions: Service Date/Time: Tuesday, November 14, 2017 07:29 - CONCLUSION: Normal examination. Sudarshan Espino MD Abdomen/Pelvis CT 11/10/17 1210 Signed Impressions: Service Date/Time: Friday, November 10, 2017 12:47 - CONCLUSION: 1. Radiopaque material within the urinary bladder likely hematoma. Underlying mass cannot be excluded. 2. Mild wall thickening of the urinary bladder. 3. Enlarged prostate. 4. Right inguinal hernia containing small bowel loops without obstruction. 5. Diverticulosis without diverticulitis. 6. Small hiatal hernia. Mark Fitch MD Procedures Catheterization Objective Remarks GENERAL: Well-nourished, well-developed patient, lying in bed awake SKIN: Skin assessment warm/dry. HEAD: Normocephalic. EYES: Pupils equal and reactive.EOMI. NECK: Supple, trachea midline. + JVD CARDIOVASCULAR: Regular rate and rhythm S1, S2. No S4. Without murmurs, RESPIRATORY: Breath sounds equal bilaterally. Breath sounds diminished in bases. No accessory muscle use. GASTROINTESTINAL: Abdomen soft, nondistended. Right inguinal hernia : CBI ongoing with hematuria noted MUSCULOSKELETAL: No cyanosis, or edema. NEURO: GCS 15. No obvious focal deficit. Moves extremities 4 A/P Assessment and Plan NEURO/PSYCH: Bladder spasm/pain Ofirmev 1 g IV every 8 hours as needed Hydromorphone 0.25 to 0.5 mg IV every 4 hours as needed pain Melatonin 5 mg daily at bedtime when necessary for insomnia Oxybutynin PRN RESP: Maintain O2 saturation greater than equal to 92%. Currently on nasal cannula at 4 L, O2 saturation 97-98% Incentive spirometry while awake Albuterol/ipratropium aerosols every 6 hours with albuterol aerosols every 2 hours as needed dyspnea 11/22 CXR-bilateral patchy opacities . Unchanged Continued incentive spirometry Lasix 40mg IV daily-discontinued 11/21 CV: STEMI s/p LAD Stent V. tach Elevated troponin Lactic acidosis 11/19 Currently on amiodarone drip transitioned to by mouth amiodarone -On aspirin 162 mg daily with clopidogrel 75 mg daily per cardiology - Carvedilol 3.125 mg p.o. twice daily Atorvastatin 10 mg p.o. daily for dyslipidemia 2-D echo with low LVEF 35-40%. Anterior lateral wall akinesia. Consider BOBBY inhibitor. Defer to cardiology 11/18 Consulted EPS-medical management secondary to the criticality of the patient , plan for possible Life Vest/defibrillator , discussed with Dr. Jackson Troponins downtrended GI: Constipation Elevated AST Hypoalbuminemia Right inguinal hernia Diverticulosis Gastroenterology following CT abdomen/pelvis earlier this hospitalization revealed right inguinal hernia without signs of strangulation, hiatal hernia, diverticulosis without diverticulitis and BPH 11/19 CT abdomen and pelvis repeated-no change right inguinal hernia containing loops of small and large bowel no mechanical obstruction now new bilateral pleural effusions. BPH Pantoprazole for GI prophylaxis Bowel regimen 11/20 Advanced to clear liquid diet, per GI : Gross hematuria Status post cystoscopy and fulguration BPH KIARA -Monitor renal function closely. Continuous bladder irrigation with Amicar per urology -Further hematuria and CBI management per Jesus with aminocaproic acid- discontinued 11/20. Bladder to be flush every shift per urology orders.11/21 ( early am) Urinary obstruction replacement of three-way Hernández 24 Gambian. CBI resumed, gross hematuria Continue tamsulosin 0.4 mg p.o. daily Creatinine 2.06->4.0 possibly due to period of hypotension on 11/21 requiring vasopressor support ,urinary obstruction vs. diuretics. 3/11: Renal ultrasound. Intraluminal mass versus debris within the urinary bladder completely encasing the Hernández catheter.Mass versus debris within the urinary bladder completely encasing the Hernández catheter. Simple right renal cyst. No evidence of hydronephrosis. Dr. Shi notified Nephrology consulted ID: Leukocytosis Blood cultures- NGTD 11/21 ID following- Dr. Juan Alberto Haywardhin changed to cefepime and Diflucan added to medication regimen (day 1) Repeat UA 11/17-follow up urine culture results 11/21 F/U repeat blood cultures WBC 20->15 today HEME: Normocytic anemia currently 11.4 Acute blood loss anemia -Status post 5 units PRBCs since admission -Monitor CBC CMP coags fibrinogen closely -Transfuse to keep hemoglobin more than [address] Kelley's request. -Follow-up Hemoccult results -Monitor CBC -Patient received 2 units packed red blood cells 11/21, 1 unit PRBCs 11/22 ENDO/FEN: Electrolyte derangement -Electrolyte replacement per protocol TSH normal PROPH: -Bilateral lower extremity SCDs. Chemical DVT prophylaxis is contraindicated at this time, organized clots flush from bladder. Continue SCDs LINES: -Utilize peripheral IVs my billing statement This patient remains critically ill with one or more organ systems which are or may become a threat to life. I have spent in excess of 35 minutes discontinuously in the care and management of this patient. This time is exclusive of procedures, and includes, but is not limited to, evaluation of the patient, review of the medical record, discussions with family, consultants, nursing staff, or respiratory therapy, and documentation in the medical record. 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 Physician Tori Wilcox MD Nov 22, 2017 12:47
[2017-11-22 16:14] LABS: HEMATOCRIT 25.7 % (39.0-51.0); HEMOGLOBIN 8.9 GM/DL (13.0-17.0)
[2017-11-22 16:53] LABS: BICARBONATE 25.1 MEQ/L (21.0-32.0); CREATININE 4.59 MG/DL (0.60-1.30)
[2017-11-22 17:16] LABS: CALCIUM 7.3 MG/DL (8.5-10.1)
[2017-11-22 17:54] LABS: CALCIUM-PROTEIN CORRECTED 8.5 MG/DL (8.5-10.1)
[2017-11-22] MEDS: HYDROmorphone HCL PF 2 MG/ML VIAL IV PRN (17:58)
[2017-11-22] MEDS ORDERED: OXYBUTYNIN CHLORIDE 5 MG TAB PO PRN (18:00)
--- NOTE | 2017-11-22 19:42 | HHI.PR ---
Subjective Patient symptoms today CBI running, moderate rate. Patient continues to have bladder spasms with occasional clots removed. Renal ultrasound identified a large bladder clot Objective Vital Signs Vital Signs Date Time Temp Pulse Resp B/P (MAP) Pulse Ox O2 Delivery O2 Flow Rate FiO2 11/22/17 18:00 75 119/57 (77) 11/22/17 18:00 75 11/22/17 16:00 74 11/22/17 16:00 98.4 74 18 120/57 (78) 100 11/22/17 14:00 73 11/22/17 12:00 77 11/22/17 12:00 98.7 77 19 115/61 (79) 96 11/22/17 10:14 98.7 77 18 136/64 100 11/22/17 10:09 98.5 77 25 136/64 99 11/22/17 10:00 86 11/22/17 08:31 99 Nasal Cannula 3.00 11/22/17 08:00 78 11/22/17 08:00 98.4 78 20 122/57 (78) 100 11/22/17 06:00 89 11/22/17 06:00 79 139/74 (95) 11/22/17 04:00 98.0 79 18 103/55 (71) 96 11/22/17 04:00 79 11/22/17 02:00 75 11/22/17 00:00 79 11/22/17 00:00 98.4 79 17 109/54 (72) 99 11/21/17 22:00 78 11/21/17 21:09 95 Nasal Cannula 3.00 11/21/17 21:02 98.2 80 19 111/58 99 11/21/17 20:00 98.2 80 25 120/57 (78) 98 11/21/17 20:00 79 Result Diagram: 11/22/17 1520 11/22/17 1520 Imaging Last 24 hours Impressions Chest X-Ray 11/22/17 0600 Signed Impressions: Service Date/Time: Wednesday, November 22, 2017 03:35 - CONCLUSION: No significant change. Persistent patchy bilateral airspace opacities. Eduin Landa MD Renal Ultrasound 11/22/17 0000 Signed Impressions: Service Date/Time: Wednesday, November 22, 2017 10:23 - CONCLUSION: 1. Intraluminal mass versus debris within the urinary bladder completely encasing the Ma catheter. 2. Simple right renal cyst. 3. No evidence of hydronephrosis. Isaias Hanna MD Objective Remarks 24Fr [address] Urine appears clear currently at bedside with CBI running slow to moderate rate. Will milli up with some manipulation Medications and IVs Current Medications Medications (Trade) Dose Ordered Sig/Micheal Route Start Time Stop Time Status Last Admin (Narcan Inj) 0.4 mg UNSCH PRN IV PUSH 11/10/17 14:15 (Flomax) 0.4 mg DAILY PO 11/11/17 09:00 11/22/17 08:10 (Catapres) 0.1 mg Q6H PRN PO 11/10/17 18:15 11/11/17 20:52 Aminocaproic Acid 3000 mg/Sodium Chloride 3,012 ml @ 0 mls/hr UNSCH IRRIGATION 11/13/17 14:15 Future Hold 11/20/17 09:19 (NS Flush) 2 ml UNSCH PRN IV FLUSH 11/13/17 16:45 (NS Flush) 2 ml BID IV FLUSH 11/13/17 21:00 11/22/17 08:12 (Aspirin Chew) 162 mg DAILY PO 11/14/17 09:00 11/22/17 08:11 (Plavix) 75 mg DAILY PO 11/14/17 09:00 11/22/17 08:12 (Coreg) 3.125 mg BID PO 11/13/17 21:00 11/20/17 21:28 (Lipitor) 10 mg HS PO 11/13/17 21:00 11/21/17 19:48 Nitroglycerin/ Dextrose 250 ml @ 1.5 mls/hr TITRATE PRN IV 11/13/17 19:30 11/13/17 19:30 (Zofran Inj) 4 mg Q6HR PRN IV PUSH 11/13/17 19:30 11/18/17 04:04 Aminocaproic Acid 1000 mg/Sodium Chloride 1,004 ml @ 0 mls/hr UNSCH IRRIGATION 11/14/17 17:00 Future Hold (Protonix Inj) 40 mg DAILY IV PUSH 11/17/17 09:00 11/22/17 08:11 (Miralax) 17 gm DAILY PO 11/17/17 11:00 11/22/17 08:12 (Reglan Inj) 5 mg Q8HR IV PUSH 11/17/17 22:00 11/22/17 14:18 Miscellaneous Information Patient in critical care unit? Ass... [id number] .XX 11/17/17 20:45 11/17/17 20:45 (Chlorhexidine 2% Cloth) 3 pack UNSCH PRN TOPICAL 11/17/17 20:45 11/22/17 20:32 (Dilaudid Pf Inj) 0.5 mg Q4H PRN IV 11/17/17 21:15 11/22/17 17:58 (Dilaudid Pf Inj) 0.2 mg Q4H PRN IV PUSH 11/17/17 21:15 Acetaminophen 100 ml @ 400 mls/hr Q8HR PRN IV 11/17/17 21:15 (Albuterol Neb) 2.5 mg Q2HR NEB PRN NEB 11/17/17 21:15 11/18/17 01:46 (Lelia-Colace) 1 tab BID PO 11/18/17 09:00 11/22/17 08:10 (Lactulose Liq) 30 ml DAILY PO 11/18/17 09:00 11/22/17 08:12 (Melatonin) 5 mg HS PRN PO 11/18/17 20:00 (Cordarone) 400 mg Q12HR PO 11/19/17 17:00 11/25/17 17:00 11/22/17 08:11 (Cordarone) 200 mg Q12H PO 11/26/17 05:00 Pharmacy Profile Note 0 ml @ 0 mls/hr UNSCH OTHER 11/20/17 16:45 (Duoneb Neb) 1 ampule Q6HR NEB NEB 11/21/17 10:00 11/22/17 15:00 (NovoLOG SUPPLEMENTAL SCALE) 1 ACHS SLIDING SCALE SQ 11/21/17 12:00 11/21/17 21:00 (D50w (Vial) Inj) 50 ml UNSCH PRN IV PUSH 11/21/17 09:30 (Glucagon Inj) 1 mg UNSCH PRN OTHER 11/21/17 09:30 Cefepime HCl 1000 mg/Sodium Chloride 100 ml @ 200 mls/hr Q24H IV 11/21/17 10:00 3/11/18 10:17 (Diflucan) 100 mg DAILY PO 11/21/17 10:15 11/22/17 08:10 Acetaminophen 100 ml @ 400 mls/hr Q6H PRN IV 11/21/17 11:30 11/23/17 11:30 Norepinephrine Bitartrate 250 ml @ 7.5 mls/hr TITRATE PRN IV 11/21/17 14:00 11/21/17 15:07 (Ditropan) 5 mg Q12H PRN PO 11/22/17 18:00 11/22/17 18:04 Assessment and Plan Assessment and Plan -Discussed with patient's family his current clinical status and hematuria with large bladder clot noted within the bladder -At this time, the patient's family is very hesitant to under go any further surgical intervention and they do understand the large bladder clot will not be able to be removed with surgery -In addition, given his recent MS and cardiac stents, Plavix is not able to be held -Therefore his current clinical situation may not improve, even with intervention to remove the large bladder clot as he may continue to bleed -Patient will need urgent/emergent cysto and clot evacuation if the catheter does not drain and his bladder becomes distended and painful. Family does understand this and would like to leave him as is for as long as possible -Alternatively, bilateral nephrostomy tubes may be placed to divert urine from the bladder. This may not be a good option given the Plavix -No surgical intervention at this time. Continue management with CBI and hand irrigation as needed -Will refer care back to [facility], Dr. Lee, tomorrow am Prakash Shi MD Nov 22, 2017 19:42
[2017-11-22] MEDS: ATORVASTATIN 10 MG TAB PO SCH (20:57)
[2017-11-23] VITALS (14 sets, daily range): BP systolic 110–131; BP diastolic 58–72; PULSE 65–82; RESP 17–28; TEMP 98–98.6; O2SAT 90–100
[2017-11-23] MEDS: RESP: ALBUTEROL 2.5 MG/IPRATROPIUM 0.5 MG NEB (SCH) NEB ×4 (03:32→19:30)
[2017-11-23 04:34] LABS: HEMATOCRIT 25.7 % (39.0-51.0); HEMOGLOBIN 9.1 GM/DL (13.0-17.0); MEAN CELL VOLUME 86.9 FL (80.0-100.0); MEAN CORPUSCULAR HEMOGLOBIN 30.7 PG (27.0-34.0); MEAN CORPUSCULAR HGB CONC 35.4 % (32.0-36.0); MEAN PLATELET VOLUME 9.5 FL (7.0-11.0); PLATELET COUNT 180 TH/MM3 (150-450); RED BLOOD COUNT 2.96 MIL/MM3 (4.50-5.90)
[2017-11-23 04:55] LABS: BICARBONATE 24.5 MEQ/L (21.0-32.0); CALCIUM 7.3 MG/DL (8.5-10.1); CREATININE 5.21 MG/DL (0.60-1.30); MAGNESIUM 2.4 MG/DL (1.5-2.5); PHOSPHORUS 5.6 MG/DL (2.5-4.9); RANDOM VANCOMYCIN 16.5 COMMENT
[2017-11-23 05:07] LABS: CALCIUM-PROTEIN CORRECTED 8.4 MG/DL (8.5-10.1); TOTAL PROTEIN 5.1 GM/DL (6.4-8.2)
--- NOTE | 2017-11-23 05:15 | RADRPT ---
EXAM DATE/TIME: 11/23/2017 03:08 [facility] COMPARISON: CHEST SINGLE AP, November 22, 2017, 3:35. INDICATIONS : Shortness of breath, possible pulmonary disease. MEDICAL HISTORY : Hypertension. SURGICAL HISTORY : Prostatectomy. ENCOUNTER: Subsequent ACUITY: 1 week PAIN SCORE: Non-responsive. LOCATION: Bilateral chest FINDINGS: There has been some improvement from the prior exam with some improvement in the patchy bilateral inf iltrates. No effusions. Heart is at the upper limits of normal in terms of size. Right-sided central line noted. CONCLUSION: Some improvement in the bilateral patchy infiltrates. Jesus Deal Jr., MD on November 23, 2017 at 5:13 Board Certified Radiologist. This report was verified electronically.
[2017-11-23] MEDS: METOCLOPRAMIDE HCL 10 MG/2 ML VIAL IV PUSH SCH (05:59)
[2017-11-23] MEDS: INSULIN ASPART SUPPLEMENTAL SCALE SQ SCH ×4 (07:49→20:39)
[2017-11-23] MEDS: CEFEPIME INJ 1,000 MG in SODIUM CHLORIDE 0.9% INJ 100 ML IV SCH (08:17)
[2017-11-23] MEDS: PANTOPRAZOLE SODIUM 40 MG VIAL IV PUSH SCH (08:17)
[2017-11-23] MEDS: FLUCONAZOLE 100 MG TAB PO SCH (08:19)
[2017-11-23] MEDS: CLOPIDOGREL 75 MG TAB PO SCH (08:19)
[2017-11-23] MEDS: CARVEDILOL 3.125 MG TAB PO SCH ×2 (08:19→20:38)
[2017-11-23] MEDS: DOCUSATE SODIUM 50 MG/SENNA 8.6 MG TAB PO SCH ×2 (08:19→20:38)
[2017-11-23] MEDS: TAMSULOSIN HCL 0.4 MG CAP PO SCH (08:20)
[2017-11-23] MEDS: ASPIRIN 81 MG CHEW TAB PO SCH (08:20)
[2017-11-23] MEDS: AMIODARONE 200 MG TAB PO SCH ×2 (08:20→20:38)
[2017-11-23] MEDS: SODIUM CHLORIDE 0.9% FLUSH 10 ML FLUSH IV FLUSH SCH ×2 (08:21→20:38)
[2017-11-23] MEDS: POLYETHYLENE GLYCOL 17 GM PKG PO SCH (08:21)
[2017-11-23] MEDS: LACTULOSE SYRUP 20 GM/30 ML CUP PO SCH (08:21)
[2017-11-23] MEDS: SODIUM CHLOR 0.9% 1000 ML INJ 1,000 ML IV SCH ×2 (09:00→20:38)
--- NOTE | 2017-11-23 09:01 | HHI.CCPN ---
Subjective Remarks/Hospital Course 11/13: Patient is an 82-year-old male with past medical history of BPH, tobacco abuse who presented 11/12/2017 with dysuria, hematuria and urinary retention. Patient was admitted to the hospitalist service and underwent cystoscopy with fulguration by Dr. Lee. Was also placed on continuous bladder irrigation. Patient developed chest pain today a.m. EKG showed significant anterolateral ST elevation troponin bumped to 6.5 emergently taken to cardiac catheterization by Dr. Kelley. Received PCI, LAD stent,. Was loaded with 600 mg Plavix and was started on Aggrastat. Post stenting went to [facility] developed hypotension and was moved to the CVICU. Initially seen by Dr. Ryan patient had gross hematuria so O negative blood 2 units were ordered stat. I evaluated the patient in CVICU. He is persistently hypotensive receiving first 2 units of blood. Started on 1 mcg/min Levophed. Remains borderline hypotensive. Patient has significant gross hematuria, and is on CBI. He is anxious and complains about 9 out of 10 chest pain, I am starting on nitro drip. Patient may need IABP pain not resolved with nitro and Dilaudid/ Morphine. I have discussed with Dr. Kelley. 11/14: Resting comfortably in bed. Received 3 units PRBCs yesterday. Chest pain resolved currently. CBI with Amicar ongoing. Minimal pink tinged CBI fluid noted. 11/15: Resting comfortably. Denies SOB or abd pain. No chest pain currently. Reconsult 11/17: Patient 10 minute episode of reperfusion rhythm/V. tach. Potassium is 3.2. Magnesium 1.8 this a.m. Given 2 g mag sulfate IV 1 now. We placed on amiodarone drip. Discussed with Dr. Kelley [place] [facility] [place] 11/18: Late entry note. Patient was noted to be hypokalemic this a.m. repletion provided. Patient denies any chest pain. Patient remains in sinus rhythm, amiodarone infusion continued. Family at bedside requesting possible transfer to another facility secondary to disappointment and care being provided. Case management consult initiated. EPS consulted, Dr. Jackson. Discussed with , family's request and plan of treatment. 11/19: Oxygen requirements increased overnight, now on partial rebreather ,chest x -ray showed new bilateral pleural effusions. IV fluids discontinued. Lasix 40 mg IV given 1 dose. The patient denies pain resting comfortably. Amiodarone continues IV infusion, plans to transition to PO today, discussed with Dr. Jackson. 11/20: Chest x-ray worsening, aggressive diuresis continued the patient received Lasix 80 mg yesterday. Patient continues on partial nonrebreather mask O2 sat 95% CT chest pending. Persistent leukocytosis noted ID has been consulted. Empiric antibiotics have been initiated. Patient had BM last evening, diet has been advanced to clear liquid per GI. 11/21: Afebrile. Patient denies chest pain. Slight improvement in chest x-ray, FiO2 requirement slightly decreased patient currently on O2 at 4 L nasal cannula. Patient continues to have bilateral pleural effusions and pulmonary edema, with slight improvement. Overnight the patient was noted to have urinary obstruction, Dr. Lee notified, 3-way Hernández change from 22 E[place]orean to 24F, patient was noted to have significant pain, patient received belladonna, Dilaudid and bladder was irrigated concurrently with a noted drop in blood pressure with a systolic in the 70s. Diuresis (Lasix) held for 24 hours , secondary to increasing creatinine to 2.0, possibly due to urinary obstruction last evening versus diuretic therapy. Noted resolution without medical intervention. Gross hematuria was again noted after placement of the new 3-way Hernández. Hemoglobin at midnight was noted to be 8.3, no transfusion was provided, hemoglobin this a.m. 7.7, patient to be transfused 2 units packed red blood cells,with posttransfusion CBC. Patient was seen by ID, antibiotics per ID recommendations. Provided extensive discussion with family, regarding overnight events and plans for treatment today. 11/21: 1300- Pt's MAP ranging 55-60. Risk and benefits discussed with family consent obtained from POA plan for central line placement and initiate Levophed infusion. 11/22: Norepinephrine discontinued at 1900 last evening. The patient remains hemodynamically stable. A.m labs reveal elevated creatinine, concern for obstruction, renal ultrasound performed, Dr. Shi notified of results.Renal US revealed mass versus debris obstructing lumen of Hernández Patient denies pain, CBI continued. Hemoglobin 8.21 unit of packed red blood cells being transfused to maintain HGB 9.0.Multiple repeated flushing and irrigation of hernández. Repeat BMP pending. 11/23 No events overnight. Awake and alert. Renal function is worsening with Cr: 5.21 from 4.59, UOP: Objective Vital Signs Date Time Temp Pulse Resp B/P (MAP) Pulse Ox O2 Delivery O2 Flow Rate FiO2 11/23/17 06:00 77 11/23/17 06:00 122/66 (84) 11/23/17 04:00 98.5 17 94 11/22/17 21:15 Nasal Cannula 3.00 Intake and Output 11/23/17 11/23/17 11/24/17 08:00 16:00 00:00 Output Total 475 ml Balance -475 ml Result Diagram: 11/23/17 0340 11/23/17 0340 Other Results Laboratory Tests Test 11/22/17 15:20 11/23/17 03:40 Hemoglobin 8.9 GM/DL 9.1 GM/DL Hematocrit 25.7 % 25.7 % Blood Urea Nitrogen 48 MG/DL 55 MG/DL Creatinine 4.59 MG/DL 5.21 MG/DL Random Glucose 102 MG/DL 91 MG/DL Total Protein 5.0 GM/DL 5.1 GM/DL Calcium Level 7.3 MG/DL 7.3 MG/DL Sodium Level 140 MEQ/L 139 MEQ/L Potassium Level 3.6 MEQ/L 3.7 MEQ/L Chloride Level 104 MEQ/L 104 MEQ/L Carbon Dioxide Level 25.1 MEQ/L 24.5 MEQ/L Anion Gap 11 MEQ/L 11 MEQ/L Estimat Glomerular Filtration Rate 12 ML/MIN 11 ML/MIN Protein Corrected Calcium 8.5 MG/DL 8.4 MG/DL White Blood Count 10.0 TH/MM3 Red Blood Count 2.96 MIL/MM3 Mean Corpuscular Volume 86.9 FL Mean Corpuscular Hemoglobin 30.7 PG Mean Corpuscular Hemoglobin Concent 35.4 % Red Cell Distribution Width 15.0 % Platelet Count 180 TH/MM3 Mean Platelet Volume 9.5 FL Phosphorus Level 5.6 MG/DL Magnesium Level 2.4 MG/DL Random Vancomycin Level 16.5 COMMENT Imaging Last Impressions Chest X-Ray 11/23/17 0600 Signed Impressions: Service Date/Time: Thursday, November 23, 2017 03:08 - CONCLUSION: Some improvement in the bilateral patchy infiltrates. Jesus Deal Jr., MD Renal Ultrasound 11/22/17 0000 Signed Impressions: Service Date/Time: Wednesday, November 22, 2017 10:23 - CONCLUSION: 1. Intraluminal mass versus debris within the urinary bladder completely encasing the Hernández catheter. 2. Simple right renal cyst. 3. No evidence of hydronephrosis. Isaias Hanna MD Chest CT 11/20/17 0000 Signed Impressions: Service Date/Time: Monday, November 20, 2017 22:03 - CONCLUSION: Diffuse confluent airspace opacities throughout both lungs obscuring portions of the right middle lobe. There is associated large bilateral pleural effusions. Jesus Martinez MD Abdomen/Pelvis CT 11/19/17 0819 Signed Impressions: Service Date/Time: November 09:06 - CONCLUSION: 1. The bowel gas pattern remains within normal limits. No mechanical obstruction. 2. There is a right inguinal hernia containing loops of small and large bowel without obstruction. 3. There is a Hernández catheter in urinary bladder. However, the balloon on the Hernández catheter appears to be inflated within the prostatic urethra. This may need to be adjusted. 4. There continues to be mixed density within the urinary bladder as well as air. This is not significantly changed compared to the prior exam. 5. Diffuse enlargement of the prostate gland. 6. New bilateral pleural effusions as well as bibasilar infiltrates. Amador Leiva MD Abdomen X-Ray 11/18/17 0000 Signed Impressions: Service Date/Time: Saturday, November 18, 2017 16:18 - CONCLUSION: Unchanged bowel gas pattern. Jesus Deal Jr., MD Procedures Catheterization Objective Remarks GENERAL: Well-nourished, well-developed patient, lying in bed awake SKIN: Skin assessment warm/dry. HEAD: Normocephalic. EYES: Pupils equal and reactive.EOMI. NECK: Supple, trachea midline. + JVD CARDIOVASCULAR: Regular rate and rhythm S1, S2. No S4. Without murmurs, RESPIRATORY: Breath sounds equal bilaterally. Breath sounds diminished in bases. No accessory muscle use. GASTROINTESTINAL: Abdomen soft, nondistended. Right inguinal hernia : CBI ongoing with hematuria noted MUSCULOSKELETAL: No cyanosis, or edema. NEURO: GCS 15. No obvious focal deficit. Moves extremities 4 A/P Assessment and Plan NEURO/PSYCH: Bladder spasm/pain Hydromorphone 0.25 to 0.5 mg IV every 4 hours as needed pain Melatonin 5 mg daily at bedtime when necessary for insomnia Oxybutynin PRN RESP: Continue with oxygen keep sats >92% Incentive spirometry while awake Albuterol/ipratropium aerosols every 6 hours with albuterol aerosols every 2 hours as needed dyspnea Continued incentive spirometry CXR today- some improvements in b/l pulm infiltrates CV: STEMI s/p LAD Stent V. tach Elevated troponin Lactic acidosis- Cleared Monitor HR and BP keep MAP>65mmHg -Continue aspirin 162 mg daily, clopidogrel 75 mg daily, Carvedilol 3.125 mg p.o. twice daily, Atorvastatin 10 mg p.o. daily for dyslipidemia, Amiodarone 200mg Q12 2-D echo with low LVEF 35-40%. Anterior lateral wall akinesia. Not on Feliciano- In due to renal failure 11/18 Consulted EPS-medical management secondary to the criticality of the patient , plan for possible Life Vest/defibrillator , Dr. Del Rio discussed with Dr. Jackson GI: Constipation Elevated AST Hypoalbuminemia Right inguinal hernia Diverticulosis GI is following CT abdomen/pelvis earlier this hospitalization revealed right inguinal hernia without signs of strangulation, hiatal hernia, diverticulosis without diverticulitis and BPH 11/19 CT abdomen and pelvis repeated-no change right inguinal hernia containing loops of small and large bowel no mechanical obstruction now new bilateral pleural effusions. BPH Pantoprazole for GI prophylaxis Bowel regimen On clear liquid diet, speech eval : Gross hematuria Status post cystoscopy and fulguration BPH KIARA - Continuous bladder irrigation with Amicar per urology -Monitor renal function, I/O's, avoid nephrotoxins -Renal function is worse with Cr: 5.21 from 4.59 Continue tamsulosin 0.4 mg p.o. daily Creatinine 2.06->4.0 possibly due to period of hypotension on 11/21 requiring vasopressor support ,urinary obstruction vs. diuretics. 11/22: Renal ultrasound. Intraluminal mass versus debris within the urinary bladder completely encasing the Hernández catheter.Mass versus debris within the urinary bladder completely encasing the Hernández catheter. Simple right renal cyst. No evidence of hydronephrosis.Dr. Lee from Urology is following Nephrology consulted, place on NS@84ml/hr ID: Leukocytosis.. trending down Abx per ID ( On Cefepime, Diflucan ) monitor for signs of infections ( fever, WBC) HEME: Normocytic anemia Acute blood loss anemia -Status post 5 units PRBCs since admission -Monitor CBC CMP c -Transfuse to keep hemoglobin more than [address] Kelley's request. -Monitor CBC -Patient received 2 units packed red blood cells 11/21, 1 unit PRBCs 11/22 ENDO/FEN: Electrolyte derangement -Electrolyte replacement per protocol TSH normal PROPH: -Bilateral lower extremity SCDs. Chemical DVT prophylaxis is contraindicated at this time, organized clots flush from bladder. Continue SCDs LINES: -Utilize peripheral IVs Level 2 Acosta Jorgensen MD Nov 23, 2017 09:01
--- NOTE | 2017-11-23 10:11 | HHI.IDPN ---
Subjective Subjective Remarks Patient is an 82-year-old male presented to the hospital for evaluation of hematuria. Patient has known BPH, and last year around the same time he was admitted for hematuria and suprapubic pain. He underwent cystoscopy and evacuation of clots, fulguration of the bleeding site within the prostatic urethra, and a Ma catheter was removed. He followed up with the urologist after about 4 days, and apparently has not had any problem with hematuria up until this admission. Urology was consulted. Patient had continuous bladder irrigation, and his bleeding was not being controlled, so he underwent cystoscopy and fulguration of the prostatic bleeding. Since then he's had problem with persistent hematuria. His hemoglobin had dropped requiring blood transfusion. On November 13 he complained of chest pain, and EKGs changes showed an acute LA. Cardiac catheter was done. Patient also has had problem with VT, and that seems to be under control with medications. On November 29 start having problem with increasing oxygen requirement. His chest x-ray has shown no bilateral infiltrates with effusions. He has been afebrile. He states he still has some shortness of breath but not worse. He is on nasal O2. His hemodynamics are okay. Today his white count went up to 20,000, an infectious disease consultation has been requested to evaluate the patient. Patient's hematuria has been under control and he has blood-tinged urine. However overnight he started having monica hematuria. His Ma catheter was changed and a bigger size was placed. Bladder scan yesterday was 720, and he had a good urine output after replacement of the Ma. As of this morning, patient has monica hematuria, and has low output. He is complaining of lower abdominal pain. There has been no diarrhea. He denies any cough or chest congestion. He denies chest pain. There is been no nausea or vomiting. He is swallowing okay. Patient has no central line. Patient has been on multiple antibiotics. He was on Cipro from November 10 2 November 16. He has been on Rocephin since November 17, and he got 1 dose of vancomycin yesterday. Infectious disease consultation has been requested to evaluate the patient. Notes reviewed D/W RN Temps ok BP ok Getting CBI - urine still bloody Urology notes reviewed Not getting accurate I and O due to CBI Creatinine rising US showing clot in bladder On nasal O2 Nephrology to see WBC down to normal Antibiotics Current Medications Cefepime Medications (Trade) Dose Ordered Sig/Micheal Route Start Time Stop Time Status Last Admin (Narcan Inj) 0.4 mg UNSCH PRN IV PUSH 11/10/17 14:15 (Flomax) 0.4 mg DAILY PO 11/11/17 09:00 11/23/17 08:20 (Catapres) 0.1 mg Q6H PRN PO 11/10/17 18:15 11/11/17 20:52 Aminocaproic Acid 3000 mg/Sodium Chloride 3,012 ml @ 0 mls/hr UNSCH IRRIGATION 11/13/17 14:15 Future Hold 11/20/17 09:19 (NS Flush) 2 ml UNSCH PRN IV FLUSH 11/13/17 16:45 (NS Flush) 2 ml BID IV FLUSH 11/13/17 21:00 11/23/17 08:21 (Aspirin Chew) 162 mg DAILY PO 11/14/17 09:00 11/23/17 08:20 (Plavix) 75 mg DAILY PO 11/14/17 09:00 11/23/17 08:19 (Coreg) 3.125 mg BID PO 11/13/17 21:00 11/23/17 08:19 (Lipitor) 10 mg HS PO 11/13/17 21:00 11/22/17 20:57 (Zofran Inj) 4 mg Q6HR PRN IV PUSH 11/13/17 19:30 11/18/17 04:04 Aminocaproic Acid 1000 mg/Sodium Chloride 1,004 ml @ 0 mls/hr UNSCH IRRIGATION 11/14/17 17:00 Future Hold (Protonix Inj) 40 mg DAILY IV PUSH 11/17/17 09:00 11/23/17 08:17 (Miralax) 17 gm DAILY PO 11/17/17 11:00 11/23/17 08:21 Miscellaneous Information Patient in critical care unit? Ass... [id number] .XX 11/17/17 20:45 11/17/17 20:45 (Dilaudid Pf Inj) 0.5 mg Q4H PRN IV 11/17/17 21:15 11/22/17 17:58 (Dilaudid Pf Inj) 0.2 mg Q4H PRN IV PUSH 11/17/17 21:15 Acetaminophen 100 ml @ 400 mls/hr Q8HR PRN IV 11/17/17 21:15 (Albuterol Neb) 2.5 mg Q2HR NEB PRN NEB 11/17/17 21:15 11/18/17 01:46 (Lelia-Colace) 1 tab BID PO 11/18/17 09:00 11/23/17 08:19 (Lactulose Liq) 30 ml DAILY PO 11/18/17 09:00 11/23/17 08:21 (Melatonin) 5 mg HS PRN PO 11/18/17 20:00 (Cordarone) 400 mg Q12HR PO 11/19/17 17:00 11/25/17 17:00 11/23/17 08:20 (Cordarone) 200 mg Q12H PO 11/26/17 05:00 Pharmacy Profile Note 0 ml @ 0 mls/hr UNSCH OTHER 11/20/17 16:45 (Duoneb Neb) 1 ampule Q6HR NEB NEB 11/21/17 10:00 11/23/17 09:17 (NovoLOG SUPPLEMENTAL SCALE) 1 ACHS SLIDING SCALE SQ 11/21/17 12:00 11/21/17 21:00 (D50w (Vial) Inj) 50 ml UNSCH PRN IV PUSH 11/21/17 09:30 (Glucagon Inj) 1 mg UNSCH PRN OTHER 11/21/17 09:30 Cefepime HCl 1000 mg/Sodium Chloride 100 ml @ 200 mls/hr Q24H IV 11/21/17 10:00 11/23/17 08:17 (Diflucan) 100 mg DAILY PO 11/21/17 10:15 11/23/17 08:19 Acetaminophen 100 ml @ 400 mls/hr Q6H PRN IV 11/21/17 11:30 11/23/17 11:30 (Ditropan) 5 mg Q12H PRN PO 11/22/17 18:00 11/22/17 18:04 Sodium Chloride 1,000 ml @ 84 mls/hr [id number] IV 11/23/17 09:00 11/23/17 09:00 Past Medical History BPH Hypertension Previous episode of hematuria in 2017 Past Surgical History TURP 2006 Allergies: Coded Allergies: No Known Allergies (Verified Allergy, Unknown, 11/10/17) Objective . Vital Signs Date Time Temp Pulse Resp B/P (MAP) Pulse Ox O2 Delivery O2 Flow Rate FiO2 11/23/17 09:17 100 Nasal Cannula 2.00 11/23/17 06:00 77 11/23/17 06:00 77 122/66 (84) 11/23/17 04:00 98.5 78 17 113/72 (86) 94 11/23/17 04:00 75 11/23/17 02:00 76 11/23/17 00:00 76 11/23/17 00:00 98.3 76 28 114/62 (79) 97 11/22/17 22:00 75 11/22/17 21:15 98 Nasal Cannula 3.00 11/22/17 20:00 73 11/22/17 20:00 98.5 73 14 135/62 (86) 99 11/22/17 18:00 75 119/57 (77) 11/22/17 18:00 75 11/22/17 16:00 74 11/22/17 16:00 98.4 74 18 120/57 (78) 100 11/22/17 14:00 73 11/22/17 12:00 77 11/22/17 12:00 98.7 77 19 115/61 (79) 96 11/22/17 10:14 98.7 77 18 136/64 100 11/22/17 10:09 98.5 77 25 136/64 99 11/23/17 11/23/17 11/24/17 15:00 23:00 07:00 Output Total 600 ml Balance -600 ml Output Urine Total 600 ml . Laboratory Tests Test 11/21/17 18:20 11/21/17 22:00 11/22/17 03:40 11/22/17 15:20 Hemoglobin 7.8 GM/DL 8.4 GM/DL 8.4 GM/DL 8.9 GM/DL Hematocrit 23.1 % 24.6 % 24.4 % 25.7 % White Blood Count 15.8 TH/MM3 Red Blood Count 2.82 MIL/MM3 Mean Corpuscular Volume 86.2 FL Mean Corpuscular Hemoglobin 29.7 PG Mean Corpuscular Hemoglobin Concent 34.4 % Red Cell Distribution Width 15.5 % Platelet Count 188 TH/MM3 Mean Platelet Volume 9.5 FL Neutrophils (%) (Auto) 79.4 % Lymphocytes (%) (Auto) 12.8 % Monocytes (%) (Auto) 6.7 % Eosinophils (%) (Auto) 1.0 % Basophils (%) (Auto) 0.1 % Neutrophils # (Auto) 12.5 TH/MM3 Lymphocytes # (Auto) 2.0 TH/MM3 Monocytes # (Auto) 1.1 TH/MM3 Eosinophils # (Auto) 0.2 TH/MM3 Basophils # (Auto) 0.0 TH/MM3 CBC Comment DIFF FINAL Differential Comment Test 11/23/17 03:40 White Blood Count 10.0 TH/MM3 Red Blood Count 2.96 MIL/MM3 Hemoglobin 9.1 GM/DL Hematocrit 25.7 % Mean Corpuscular Volume 86.9 FL Mean Corpuscular Hemoglobin 30.7 PG Mean Corpuscular Hemoglobin Concent 35.4 % Red Cell Distribution Width 15.0 % Platelet Count 180 TH/MM3 Mean Platelet Volume 9.5 FL Laboratory Tests Test 11/22/17 03:40 11/22/17 15:20 11/23/17 03:40 Blood Urea Nitrogen 48 MG/DL 48 MG/DL 55 MG/DL Creatinine 4.05 MG/DL 4.59 MG/DL 5.21 MG/DL Random Glucose 117 MG/DL 102 MG/DL 91 MG/DL Calcium Level 7.6 MG/DL 7.3 MG/DL 7.3 MG/DL Phosphorus Level 5.7 MG/DL 5.6 MG/DL Magnesium Level 2.3 MG/DL 2.4 MG/DL Sodium Level 139 MEQ/L 140 MEQ/L 139 MEQ/L Potassium Level 3.8 MEQ/L 3.6 MEQ/L 3.7 MEQ/L Chloride Level 103 MEQ/L 104 MEQ/L 104 MEQ/L Carbon Dioxide Level 24.1 MEQ/L 25.1 MEQ/L 24.5 MEQ/L Anion Gap 12 MEQ/L 11 MEQ/L 11 MEQ/L Estimat Glomerular Filtration Rate 14 ML/MIN 12 ML/MIN 11 ML/MIN Total Protein 5.0 GM/DL 5.1 GM/DL Protein Corrected Calcium 8.5 MG/DL 8.4 MG/DL Microbiology Date/Time Source Procedure Growth Status 11/21/17 11:05 Blood Peripheral Aerobic Blood Culture - Preliminary NO GROWTH IN 1 DAY Resulted 11/21/17 11:05 Blood Peripheral Anaerobic Blood Culture - Preliminary NO GROWTH IN 1 DAY Resulted 11/21/17 10:55 Blood Peripheral Aerobic Blood Culture - Preliminary NO GROWTH IN 1 DAY Resulted 11/21/17 10:55 Blood Peripheral Anaerobic Blood Culture - Preliminary NO GROWTH IN 1 DAY Resulted Imaging Last Impressions Chest X-Ray 11/22/17 0600 Signed Impressions: Service Date/Time: Wednesday, November 22, 2017 03:35 - CONCLUSION: No significant change. Persistent patchy bilateral airspace opacities. Eduin Landa MD Chest CT 11/20/17 0000 Signed Impressions: Service Date/Time: Monday, November 20, 2017 22:03 - CONCLUSION: Diffuse confluent airspace opacities throughout both lungs obscuring portions of the right middle lobe. There is associated large bilateral pleural effusions. Jesus Martinez MD Abdomen/Pelvis CT 11/19/17 0819 Signed Impressions: Service Date/Time: November 09:06 - CONCLUSION: 1. The bowel gas pattern remains within normal limits. No mechanical obstruction. 2. There is a right inguinal hernia containing loops of small and large bowel without obstruction. 3. There is a Ma catheter in urinary bladder. However, the balloon on the Ma catheter appears to be inflated within the prostatic urethra. This may need to be adjusted. 4. There continues to be mixed density within the urinary bladder as well as air. This is not significantly changed compared to the prior exam. 5. Diffuse enlargement of the prostate gland. 6. New bilateral pleural effusions as well as bibasilar infiltrates. Amador Leiva MD Abdomen X-Ray 11/18/17 0000 Signed Impressions: Service Date/Time: Saturday, November 18, 2017 16:18 - CONCLUSION: Unchanged bowel gas pattern. Jesus Deal Jr., MD Physical Exam GENERAL: awake and alert, not in respiratory distress. He is on nasal O2 SKIN: Cold and dry. No generalized rash, no ecchymoses and no evidence of embolic lesions. HEAD: Atraumatic. Normocephalic. No temporal wasting, or tenderness. EYES: Pale conjunctiva. No petechia or hemorrhage. Pupils equal, round and reactive to light. No scleral icterus. No injection or drainage. EARS, NOSE AND THROAT: Nose without bleeding or purulent nasal discharge. No sinus tenderness. Dry oral mucosa. NECK: Trachea midline. Supple and not tender, no meningeal signs CARDIOVASCULAR: Regular rate and rhythm. No murmurs, rubs or gallops heard RESPIRATORY: Coarse breath sounds bilaterally. Decreased at the bases. ABDOMEN: Soft, nondistended. Bowel sounds present and normoactive. He has mild tenderness in suprapubic region. No guarding. No rebound. No organomegaly. : Ma in place with blood tinged urine EXTREMITIES: No clubbing, cyanosis, or edema. No joint effusion, has good ROM. No calf tenderness. Cool feet. NEUROLOGICAL: Awake and alert. Cranial nerves grossly intact. Motor grossly within normal limits. PSYCHIATRIC: Normal affect, calm and cooperative. LINE: No evidence of infection Assessment & Plan Remarks IMPRESSION Leukocytosis most likely reactive due to urinary retention from obstruction related to blood clots, hematuris, resolved - WBC better Bilateral pulmonary infiltrates due to pulmonary edema - no clinical evidence of PNA, no cough or congestion, no fever BPH, with persistent gross hematuria Anemia due to blood loss from hematuria Acute rise in creatinine, etiology? RECOMMENDATION Continue Cefepime Continue Diflucan If stable will consider D/C Abx in few days Urology following Follow CBC Monitor progress D/W Fabiola Davila MD Nov 23, 2017 10:11
--- NOTE | 2017-11-23 10:15 | HHI.NPPN ---
Subjective Renal Problems: Hematuria Renal Failure: Acute Additional Remarks Patient is alert and oriented. Indwelling Hernández catheter intact with irrigation. Urine with gross hematuria noted. (Karen Ch) Review of Systems Respiratory Respiratory Remarks Denies any SOB (Karen Ch) Cardiovascular Cardiac Remarks denies any CP (Karen Ch) Gastrointestinal GI Remarks Denies any abdominal pain (Karen Ch) Genitourinary Remarks suprapubic discomfort (Karen Ch) Objective Data Data 11/23/17 11/24/17 19:00 07:00 Output Total 600 ml Balance -600 ml Output Urine Total 600 ml Vital Signs Date Time Temp Pulse Resp B/P (MAP) Pulse Ox O2 Delivery O2 Flow Rate FiO2 11/23/17 09:17 100 Nasal Cannula 2.00 11/23/17 06:00 77 11/23/17 06:00 77 122/66 (84) 11/23/17 04:00 98.5 78 17 113/72 (86) 94 11/23/17 04:00 75 11/23/17 02:00 76 11/23/17 00:00 76 11/23/17 00:00 98.3 76 28 114/62 (79) 97 11/22/17 22:00 75 11/22/17 21:15 98 Nasal Cannula 3.00 11/22/17 20:00 73 11/22/17 20:00 98.5 73 14 135/62 (86) 99 11/22/17 18:00 75 119/57 (77) 11/22/17 18:00 75 11/22/17 16:00 74 11/22/17 16:00 98.4 74 18 120/57 (78) 100 11/22/17 14:00 73 11/22/17 12:00 77 11/22/17 12:00 98.7 77 19 115/61 (79) 96 11/22/17 10:14 98.7 77 18 136/64 100 11/22/17 10:09 98.5 77 25 136/64 99 11/22/17 10:00 86 (Karen Ch) -: 11/23/17 0340 11/23/17 0340 Imaging Last Impressions Chest X-Ray 11/23/17 0600 Signed Impressions: Service Date/Time: Thursday, November 23, 2017 03:08 - CONCLUSION: Some improvement in the bilateral patchy infiltrates. Jesus Deal Jr., MD Renal Ultrasound 11/22/17 0000 Signed Impressions: Service Date/Time: Wednesday, November 22, 2017 10:23 - CONCLUSION: 1. Intraluminal mass versus debris within the urinary bladder completely encasing the Hernández catheter. 2. Simple right renal cyst. 3. No evidence of hydronephrosis. Isaias Hanna MD Chest CT 11/20/17 0000 Signed Impressions: Service Date/Time: Monday, November 20, 2017 22:03 - CONCLUSION: Diffuse confluent airspace opacities throughout both lungs obscuring portions of the right middle lobe. There is associated large bilateral pleural effusions. Jesus Martinez MD Abdomen/Pelvis CT 11/19/17 0819 Signed Impressions: Service Date/Time: November 09:06 - CONCLUSION: 1. The bowel gas pattern remains within normal limits. No mechanical obstruction. 2. There is a right inguinal hernia containing loops of small and large bowel without obstruction. 3. There is a Hernández catheter in urinary bladder. However, the balloon on the Hernández catheter appears to be inflated within the prostatic urethra. This may need to be adjusted. 4. There continues to be mixed density within the urinary bladder as well as air. This is not significantly changed compared to the prior exam. 5. Diffuse enlargement of the prostate gland. 6. New bilateral pleural effusions as well as bibasilar infiltrates. Amador Leiva MD Abdomen X-Ray 11/18/17 0000 Signed Impressions: Service Date/Time: Saturday, November 18, 2017 16:18 - CONCLUSION: Unchanged bowel gas pattern. Jesus Deal Jr., MD Tubes & Lines: Hernández (Karen Ch) Physical Exam General Appearance: No Acute Distress (Karen Ch) Pulmonary Resp Exam: Breath Sounds Equal, No Distress (Karen Ch) Gastrointestinal/Abdomen GI Exam: Bowel Sounds Present (Karen Ch) Genitourinary Exam: Flank Non-Tender Remarks Gross hematuria noted (Karen Ch) Integumentary Skin Exam: Warm, Dry (Karen Ch) Extremeties Extremities Exam: No Edema (Karen Ch) Neurologic Neuro Exam: Alert, Awake (Karen Ch) Psychiatric Psych Exam: Appropriate Responses (Karen Ch) Assessment/Plan Discussed Condition With: Patient Assessment Summary: KIARA/Acute Renal Failure Electrolyte Assessment: Hypocalcemia Problem List: (1) KIARA (acute kidney injury) ICD Codes: N17.9 - Acute kidney failure, unspecified Plan: Acute kidney injury possibly related to obstruction or period of hypotension. 11/22: Renal ultrasound. Intraluminal mass versus debris within the urinary bladder completely encasing the Hernández catheter. Mass versus debris within the urinary bladder completely encasing the Hernández catheter. Simple right renal cyst. No evidence of hydronephrosis Urology is consulted. Renal function continues to worsen with Cr: 5.21 from 4.59 with UOP reported per nursing at around 200 ml over 12 hours Potassium WNL Plan Continue continuous bladder irrigation Will continue to monitor renal function and UOP Avoid nephrotoxins. With worsening renal function patient may need possible dialysis Dr. Pal to discuss with mica parts sprayer. (2) Gross hematuria ICD Codes: R31.0 - Gross hematuria Status: Acute Plan: Indwelling hernández catheter. Urology consulted (3) Obstructive uropathy ICD Codes: N13.9 - Obstructive and reflux uropathy, unspecified Status: Acute (4) BPH (benign prostatic hyperplasia) ICD Codes: N40.0 - Benign prostatic hyperplasia without lower urinary tract symptoms Status: Acute (5) Hypertension ICD Codes: I10 - Essential (primary) hypertension Status: Acute Plan: Well controlled (Karen Ch) Problem List: (1) KIARA (acute kidney injury) ICD Codes: N17.9 - Acute kidney failure, unspecified Plan: Acute kidney injury possibly related to obstruction or period of hypotension. 11/22: Renal ultrasound. Intraluminal mass versus debris within the urinary bladder completely encasing the Hernández catheter. Mass versus debris within the urinary bladder completely encasing the Hernández catheter. Simple right renal cyst. No evidence of hydronephrosis Urology is consulted. Renal function continues to worsen with Cr: 5.21 from 4.59 with UOP reported per nursing at around 200 ml over 12 hours Potassium WNL Plan Continue continuous bladder irrigation Will continue to monitor renal function and UOP Avoid nephrotoxins. With worsening renal function patient may need possible dialysis. Patient seen and examined, agree with above. Continue gentle hydration. D/W patient's daughter about possible HD. Follow the urine out put and BMP. (2) Gross hematuria ICD Codes: R31.0 - Gross hematuria Status: Acute Plan: Indwelling hernández catheter. Urology consulted (3) Obstructive uropathy ICD Codes: N13.9 - Obstructive and reflux uropathy, unspecified Status: Acute (4) BPH (benign prostatic hyperplasia) ICD Codes: N40.0 - Benign prostatic hyperplasia without lower urinary tract symptoms Status: Acute (5) Hypertension ICD Codes: I10 - Essential (primary) hypertension Status: Acute Plan: Well controlled (Ashley Pal MD) Karen Ch Nov 23, 2017 10:15 Ashley Pal MD Nov 23, 2017 18:44
--- NOTE | 2017-11-23 12:37 | HHI.PR ---
Subjective Patient symptoms today Events noted Family reports that the CBI becomes very light pink and then darkens intermittently Patient nonverbal Objective Vital Signs Vital Signs Date Time Temp Pulse Resp B/P (MAP) Pulse Ox O2 Delivery O2 Flow Rate FiO2 11/23/17 09:17 100 Nasal Cannula 2.00 11/23/17 06:00 77 11/23/17 06:00 77 122/66 (84) 11/23/17 04:00 98.5 78 17 113/72 (86) 94 11/23/17 04:00 75 11/23/17 02:00 76 11/23/17 00:00 76 11/23/17 00:00 98.3 76 28 114/62 (79) 97 11/22/17 22:00 75 11/22/17 21:15 98 Nasal Cannula 3.00 11/22/17 20:00 73 11/22/17 20:00 98.5 73 14 135/62 (86) 99 11/22/17 18:00 75 119/57 (77) 11/22/17 18:00 75 11/22/17 16:00 74 11/22/17 16:00 98.4 74 18 120/57 (78) 100 11/22/17 14:00 73 Intake & Output 11/23/17 11/23/17 07:00 19:00 Output Total 900 ml 600 ml Balance -900 ml -600 ml Output Urine Total 900 ml 600 ml Result Diagram: 11/23/17 0340 11/23/17 0340 Imaging Last 24 hours Impressions Chest X-Ray 11/23/17 0600 Signed Impressions: Service Date/Time: Thursday, November 23, 2017 03:08 - CONCLUSION: Some improvement in the bilateral patchy infiltrates. Jesus Deal Jr., MD Objective Remarks 24Fr [address] running at a slow rate with light pink output Bladder not distended Medications and IVs Current Medications Medications (Trade) Dose Ordered Sig/Micheal Route Start Time Stop Time Status Last Admin (Narcan Inj) 0.4 mg UNSCH PRN IV PUSH 11/10/17 14:15 (Flomax) 0.4 mg DAILY PO 11/11/17 09:00 11/23/17 08:20 (Catapres) 0.1 mg Q6H PRN PO 11/10/17 18:15 11/11/17 20:52 Aminocaproic Acid 3000 mg/Sodium Chloride 3,012 ml @ 0 mls/hr UNSCH IRRIGATION 11/13/17 14:15 Future Hold 11/20/17 09:19 (NS Flush) 2 ml UNSCH PRN IV FLUSH 11/13/17 16:45 (NS Flush) 2 ml BID IV FLUSH 11/13/17 21:00 11/23/17 08:21 (Aspirin Chew) 162 mg DAILY PO 11/14/17 09:00 11/23/17 08:20 (Plavix) 75 mg DAILY PO 11/14/17 09:00 11/23/17 08:19 (Coreg) 3.125 mg BID PO 11/13/17 21:00 11/23/17 08:19 (Lipitor) 10 mg HS PO 11/13/17 21:00 11/22/17 20:57 (Zofran Inj) 4 mg Q6HR PRN IV PUSH 11/13/17 19:30 11/18/17 04:04 Aminocaproic Acid 1000 mg/Sodium Chloride 1,004 ml @ 0 mls/hr UNSCH IRRIGATION 11/14/17 17:00 Future Hold (Protonix Inj) 40 mg DAILY IV PUSH 11/17/17 09:00 11/23/17 08:17 (Miralax) 17 gm DAILY PO 11/17/17 11:00 11/23/17 08:21 Miscellaneous Information Patient in critical care unit? Ass... [id number] .XX 11/17/17 20:45 11/17/17 20:45 (Dilaudid Pf Inj) 0.5 mg Q4H PRN IV 11/17/17 21:15 11/22/17 17:58 (Dilaudid Pf Inj) 0.2 mg Q4H PRN IV PUSH 11/17/17 21:15 Acetaminophen 100 ml @ 400 mls/hr Q8HR PRN IV 11/17/17 21:15 (Albuterol Neb) 2.5 mg Q2HR NEB PRN NEB 11/17/17 21:15 11/18/17 01:46 (Lelia-Colace) 1 tab BID PO 11/18/17 09:00 11/23/17 08:19 (Lactulose Liq) 30 ml DAILY PO 11/18/17 09:00 11/23/17 08:21 (Melatonin) 5 mg HS PRN PO 11/18/17 20:00 (Cordarone) 400 mg Q12HR PO 11/19/17 17:00 11/25/17 17:00 11/23/17 08:20 (Cordarone) 200 mg Q12H PO 11/26/17 05:00 Pharmacy Profile Note 0 ml @ 0 mls/hr UNSCH OTHER 11/20/17 16:45 (Duoneb Neb) 1 ampule Q6HR NEB NEB 11/21/17 10:00 11/23/17 09:17 (NovoLOG SUPPLEMENTAL SCALE) 1 ACHS SLIDING SCALE SQ 11/21/17 12:00 11/21/17 21:00 (D50w (Vial) Inj) 50 ml UNSCH PRN IV PUSH 11/21/17 09:30 (Glucagon Inj) 1 mg UNSCH PRN OTHER 11/21/17 09:30 Cefepime HCl 1000 mg/Sodium Chloride 100 ml @ 200 mls/hr Q24H IV 11/21/17 10:00 11/23/17 08:17 (Diflucan) 100 mg DAILY PO 11/21/17 10:15 11/23/17 08:19 (Ditropan) 5 mg Q12H PRN PO 11/22/17 18:00 11/22/17 18:04 Sodium Chloride 1,000 ml @ 84 mls/hr [id number] IV 11/23/17 09:00 11/23/17 09:00 Assessment and Plan Assessment and Plan -Discussed with patient's family his current clinical status and hematuria with large bladder clot noted within the bladder -At this time, the patient's family is very hesitant to under go any further surgical intervention and they do understand the large bladder clot will not be able to be removed with surgery -In addition, given his recent MA and cardiac stents, Plavix is not able to be held -Therefore his current clinical situation may not improve, even with intervention to remove the large bladder clot as he may continue to bleed -Patient will need urgent/emergent cysto and clot evacuation if the catheter does not drain and his bladder becomes distended and painful. Family does understand this and would like to leave him as is for as long as possible -Alternatively, bilateral nephrostomy tubes may be placed to divert urine from the bladder. This may not be a good option given the Plavix -No surgical intervention at this time. Continue management with CBI and hand irrigation as needed -Will refer care back to [facility], Dr. Lee, tomorrow am 11/23/2017 Discussed ongoing management with Amicar CBI. Discussed that it may take up to 2 weeks for the urine to totally clear as patient is presently on anticoagulation therapy. We will irrigate CBI catheter as needed Once CBI discontinued, patient will require an indwelling Ma catheter for an extended period of time to allow any residual clot material to dissolve. Hernando Roberts MD Nov 23, 2017 12:37
--- NOTE | 2017-11-23 13:09 | MB ---
cc: Mildred Pal MD DATE OF CONSULT: 11/22/2017 REASON FOR CONSULTATION: Acute kidney injury with elevated BUN and creatinine. HISTORY OF PRESENT ILLNESS: This is an 82-year-old male with a past medical history of hypertension, benign prostatic hypertrophy, history of TURP in 2006, possible history of mild chronic kidney disease with creatinine on presentation of 1.3 and remained in the range of 1.2 to 1.3 most of the time. He presented to the hospital and was admitted on 11/10 because of hematuria. I was called to see the patient because of elevated BUN and creatinine. The patient has been followed by Urology and the impression was the patient has possible prostatic bleeding and continue the Ma catheter and irrigation (this was on admission), and continue the Flomax. It was recently found on the ultrasound of the kidneys, that he has intraluminal mass versus ____ in the urinary bladder. The creatinine has been gradually going up, and now it is 4.5. The patient has bloody urine and is to continue the bladder irrigation. He has nausea or vomiting, no history of diarrhea. The patient has all the cultures negative, and currently he is getting Diflucan and cefepime. Infectious Disease is following. PAST MEDICAL HISTORY: Hypertension, benign prostatic hypertrophy, possible mild chronic kidney disease. PAST SURGICAL HISTORY: TURP in 2006. REVIEW OF SYSTEMS: The patient has generalized weakness, feeling tired, has mild shortness of breath currently with nasal cannula and getting the nebulizer treatment, has a mild cough which is mainly dry. There is no chest pain. No headache, dizziness or blurring of vision. No abdominal pain, no nausea or vomiting. He has mild pain in the suprapubic region. SOCIAL HISTORY: The patient has no history of smoking or alcohol. FAMILY HISTORY: Positive for ischemic heart disease. ALLERGIES: HE HAS NO KNOWN DRUG ALLERGIES. MEDICATIONS: Currently he is on the following medications: Aspirin 162 mg once a day, Flomax 0.4 mg daily, Lelia-Colace 1 tablet b.i.d., Coreg 3.125 mg b.i.d., Protonix 40 mg IV daily, MiraLax 17 g once a day, lactulose 30 mL once a day, Diflucan 100 mg once a day, Lipitor 10 mg at bedtime, DuoNeb nebulizer, amiodarone 200 mg q. 12 hours and 400 mg q. 12 hours, cefepime 1 g q. 24 hours, regular insulin sliding scale and insulin aspart sliding scale. PHYSICAL EXAMINATION: GENERAL: The patient is awake, alert. He is not in acute distress. VITAL SIGNS: His last blood pressure is 135/62. The patient had a hypotensive episode and his blood pressure yesterday was as low as 74/45 and he was on pressors. Now he is off pressors. Temperature is 98.5, oxygen saturation is 98% to 99% on 3 liters nasal cannula. HEENT: Pupils are mid constricted, nonicteric sclerae, conjunctivae pale. NECK: Supple. JVD is not elevated. LUNGS: The patient has bilateral good air entry with occasional wheezing and basilar rales. HEART: S1, S2 regular rhythm. ABDOMEN: Distended, soft, lax. There is mild suprapubic tenderness. There is no rebound, no rigidity. Bowel sound are positive. EXTREMITIES: No pedal edema. INVESTIGATIONS: WBC count is 15.8. Hemoglobin 8.4, the repeat was 8.9. Platelets of 188, neutrophils 79.4%. Sodium is 140, potassium 3.6, chloride 104, bicarb 25.1, BUN 48, creatinine 4.5, calcium 7.3 with corrected of 8.5, phosphorus 5.7, magnesium 2.3. Total protein is 5.0. Troponin was 4.86. INR 1.2. Urinalysis showing protein of 30. Vanco random was 21.9. All the cultures are negative. IMAGING STUDIES: The patient had a chest x-ray done which shows persistent patchy bilateral airspace opacities. Ultrasound of the kidneys was done which shows both kidneys are normal size with large intraluminal filling in the bladder with mass versus ____, no evidence of hydronephrosis. Abdomen and pelvis CT scan was done 3 days ago which shows that there is bowel gas pattern and a small inguinal hernia, extends to the urinary bladder; diffuse enlargement of prostate gland; bilateral pleural effusion. ASSESSMENT AND PLAN: 1. Acute kidney injury. 2. Hematuria and bladder hematoma or mass. 3. Hypotension. 4. Leukocytosis. 5. Respiratory failure, possible pneumonia. 6. Anemia. 7. History of benign prostatic hypertrophy. The patient has acute kidney injury. He still has hematuria, which could be related to his prostate enlargement and also maybe there is some mass or hematoma in the urinary bladder. Urology is following. It is possible he will have cystoscopy tomorrow. He is continuing the bladder irrigation at this time. Acute kidney injury is most likely related to hypotension or possibly due to some vancomycin toxicity or interstitial nephritis. At present, the patient is nonoliguric and not in fluid overload status. Vancomycin has been stopped. Continue the antibiotics and follow the urine output, and the BUN and creatinine. Avoid any nephrotoxins. Thank you for the consultation. I will follow the patient while he is in the hospital. MD JEREMIAH Welch/ADI , 09:59 PM , 12:48 AM
[2017-11-23] MEDS: ATORVASTATIN 10 MG TAB PO SCH (20:38)
[2017-11-24] VITALS (14 sets, daily range): BP systolic 106–130; BP diastolic 56–87; PULSE 60–75; RESP 18–28; TEMP 98–98.5; O2SAT 96–100
[2017-11-24] MEDS: SODIUM CHLOR 0.9% 1000 ML INJ 1,000 ML IV SCH ×2 (01:20→20:56)
[2017-11-24] MEDS: RESP: ALBUTEROL 2.5 MG/IPRATROPIUM 0.5 MG NEB (SCH) NEB ×4 (03:26→19:37)
[2017-11-24 05:31] LABS: AUTOMATED NEUTROPHIL # 8.1 TH/MM3 (1.8-7.7); BASOPHIL % 0.1 % (0.0-2.0); EOSINOPHIL # 0.2 TH/MM3 (0-0.4); EOSINOPHIL % 2.4 % (0.0-4.0); HEMATOCRIT 25.2 % (39.0-51.0); LYMPH % 12.7 % (9.0-44.0); LYMPHOCYTE # 1.3 TH/MM3 (1.0-4.8); MEAN CELL VOLUME 87.3 FL (80.0-100.0); MEAN CORPUSCULAR HEMOGLOBIN 31.1 PG (27.0-34.0); MEAN CORPUSCULAR HGB CONC 35.6 % (32.0-36.0); MEAN PLATELET VOLUME 9.1 FL (7.0-11.0); MONO % 7.3 % (0.0-8.0); MONOCYTE # 0.8 TH/MM3 (0-0.9); NEUT % 77.5 % (16.0-70.0); PLATELET COUNT 172 TH/MM3 (150-450); RED BLOOD COUNT 2.89 MIL/MM3 (4.50-5.90); RED CELL DISTRIBUTION WIDTH 15.1 % (11.6-17.2); WHITE BLOOD COUNT 10.4 TH/MM3 (4.0-11.0)
[2017-11-24 05:48] LABS: CREATININE 5.44 MG/DL (0.60-1.30)
[2017-11-24 06:07] LABS: CALCIUM-PROTEIN CORRECTED 8.1 MG/DL (8.5-10.1)
--- NOTE | 2017-11-24 07:28 | HHI.CCPN ---
Subjective Remarks/Hospital Course 11/13: Patient is an 82-year-old male with past medical history of BPH, tobacco abuse who presented 11/12/2017 with dysuria, hematuria and urinary retention. Patient was admitted to the hospitalist service and underwent cystoscopy with fulguration by Dr. Lee. Was also placed on continuous bladder irrigation. Patient developed chest pain today a.m. EKG showed significant anterolateral ST elevation troponin bumped to 6.5 emergently taken to cardiac catheterization by Dr. Kelley. Received PCI, LAD stent,. Was loaded with 600 mg Plavix and was started on Aggrastat. Post stenting went to [facility] developed hypotension and was moved to the CVICU. Initially seen by Dr. Ryan patient had gross hematuria so O negative blood 2 units were ordered stat. I evaluated the patient in CVICU. He is persistently hypotensive receiving first 2 units of blood. Started on 1 mcg/min Levophed. Remains borderline hypotensive. Patient has significant gross hematuria, and is on CBI. He is anxious and complains about 9 out of 10 chest pain, I am starting on nitro drip. Patient may need IABP pain not resolved with nitro and Dilaudid/ Morphine. I have discussed with Dr. Kelley. 11/14: Resting comfortably in bed. Received 3 units PRBCs yesterday. Chest pain resolved currently. CBI with Amicar ongoing. Minimal pink tinged CBI fluid noted. 11/15: Resting comfortably. Denies SOB or abd pain. No chest pain currently. Reconsult 11/17: Patient 10 minute episode of reperfusion rhythm/V. tach. Potassium is 3.2. Magnesium 1.8 this a.m. Given 2 g mag sulfate IV 1 now. We placed on amiodarone drip. Discussed with Dr. Kelley will transfer to [facility]. 11/18: Late entry note. Patient was noted to be hypokalemic this a.m. repletion provided. Patient denies any chest pain. Patient remains in sinus rhythm, amiodarone infusion continued. Family at bedside requesting possible transfer to another facility secondary to disappointment and care being provided. Case management consult initiated. EPS consulted, Dr. Jackson. Discussed with , family's request and plan of treatment. 11/19: Oxygen requirements increased overnight, now on partial rebreather ,chest x -ray showed new bilateral pleural effusions. IV fluids discontinued. Lasix 40 mg IV given 1 dose. The patient denies pain resting comfortably. Amiodarone continues IV infusion, plans to transition to PO today, discussed with Dr. Jackson. 11/20: Chest x-ray worsening, aggressive diuresis continued the patient received Lasix 80 mg yesterday. Patient continues on partial nonrebreather mask O2 sat 95% CT chest pending. Persistent leukocytosis noted ID has been consulted. Empiric antibiotics have been initiated. Patient had BM last evening, diet has been advanced to clear liquid per GI. 11/21: Afebrile. Patient denies chest pain. Slight improvement in chest x-ray, FiO2 requirement slightly decreased patient currently on O2 at 4 L nasal cannula. Patient continues to have bilateral pleural effusions and pulmonary edema, with slight improvement. Overnight the patient was noted to have urinary obstruction, Dr. Lee notified, 3-way Hernández change from 22 Malagasy to 24F, patient was noted to have significant pain, patient received belladonna, Dilaudid and bladder was irrigated concurrently with a noted drop in blood pressure with a systolic in the 70s. Diuresis (Lasix) held for 24 hours , secondary to increasing creatinine to 2.0, possibly due to urinary obstruction last evening versus diuretic therapy. Noted resolution without medical intervention. Gross hematuria was again noted after placement of the new 3-way Hernández. Hemoglobin at midnight was noted to be 8.3, no transfusion was provided, hemoglobin this a.m. 7.7, patient to be transfused 2 units packed red blood cells,with posttransfusion CBC. Patient was seen by ID, antibiotics per ID recommendations. Provided extensive discussion with family, regarding overnight events and plans for treatment today. 11/21: 1300- Pt's MAP ranging 55-60. Risk and benefits discussed with family consent obtained from POA plan for central line placement and initiate Levophed infusion. 11/22: Norepinephrine discontinued at 1900 last evening. The patient remains hemodynamically stable. A.m labs reveal elevated creatinine, concern for obstruction, renal ultrasound performed, Dr. Shi notified of results.Renal US revealed mass versus debris obstructing lumen of Hernández Patient denies pain, CBI continued. Hemoglobin 8.21 unit of packed red blood cells being transfused to maintain HGB 9.0.Multiple repeated flushing and irrigation of hernández. Repeat BMP pending. 11/23 No events overnight. Awake and alert. Renal function is worsening with Cr: 5.21 from 4.59, 11/24 Patient is lying in bed in NAD. Afebrile. Cr: 5.44. On CBI per Urology. Objective Vital Signs Date Time Temp Pulse Resp B/P (MAP) Pulse Ox O2 Delivery O2 Flow Rate FiO2 11/24/17 06:00 75 11/24/17 04:00 98.3 23 130/87 (101) 99 11/24/17 03:26 Nasal Cannula 2.00 11/23/17 19:32 21 Intake and Output 11/24/17 11/24/17 11/25/17 08:00 16:00 00:00 Intake Total 1000 ml Output Total 2050 ml Balance -1050 ml Result Diagram: 11/24/17 0240 11/24/17 0240 Other Results Laboratory Tests Test 11/24/17 02:40 White Blood Count 10.4 TH/MM3 Red Blood Count 2.89 MIL/MM3 Hemoglobin 9.0 GM/DL Hematocrit 25.2 % Mean Corpuscular Volume 87.3 FL Mean Corpuscular Hemoglobin 31.1 PG Mean Corpuscular Hemoglobin Concent 35.6 % Red Cell Distribution Width 15.1 % Platelet Count 172 TH/MM3 Mean Platelet Volume 9.1 FL Neutrophils (%) (Auto) 77.5 % Lymphocytes (%) (Auto) 12.7 % Monocytes (%) (Auto) 7.3 % Eosinophils (%) (Auto) 2.4 % Basophils (%) (Auto) 0.1 % Neutrophils # (Auto) 8.1 TH/MM3 Lymphocytes # (Auto) 1.3 TH/MM3 Monocytes # (Auto) 0.8 TH/MM3 Eosinophils # (Auto) 0.2 TH/MM3 Basophils # (Auto) 0.0 TH/MM3 CBC Comment DIFF FINAL Differential Comment Blood Urea Nitrogen 61 MG/DL Creatinine 5.44 MG/DL Random Glucose 84 MG/DL Total Protein 5.0 GM/DL Calcium Level 7.0 MG/DL Sodium Level 141 MEQ/L Potassium Level 3.9 MEQ/L Chloride Level 104 MEQ/L Carbon Dioxide Level 22.0 MEQ/L Anion Gap 15 MEQ/L Estimat Glomerular Filtration Rate 10 ML/MIN Protein Corrected Calcium 8.1 MG/DL Imaging Last Impressions Chest X-Ray 11/23/17 0600 Signed Impressions: Service Date/Time: Thursday, November 23, 2017 03:08 - CONCLUSION: Some improvement in the bilateral patchy infiltrates. Jesus Deal Jr., MD Renal Ultrasound 11/22/17 0000 Signed Impressions: Service Date/Time: Wednesday, November 22, 2017 10:23 - CONCLUSION: 1. Intraluminal mass versus debris within the urinary bladder completely encasing the Hernández catheter. 2. Simple right renal cyst. 3. No evidence of hydronephrosis. Isaias Hanna MD Chest CT 11/20/17 0000 Signed Impressions: Service Date/Time: Monday, November 20, 2017 22:03 - CONCLUSION: Diffuse confluent airspace opacities throughout both lungs obscuring portions of the right middle lobe. There is associated large bilateral pleural effusions. Jesus Martinez MD Abdomen/Pelvis CT 11/19/17 0819 Signed Impressions: Service Date/Time: November 09:06 - CONCLUSION: 1. The bowel gas pattern remains within normal limits. No mechanical obstruction. 2. There is a right inguinal hernia containing loops of small and large bowel without obstruction. 3. There is a Hernández catheter in urinary bladder. However, the balloon on the Hernández catheter appears to be inflated within the prostatic urethra. This may need to be adjusted. 4. There continues to be mixed density within the urinary bladder as well as air. This is not significantly changed compared to the prior exam. 5. Diffuse enlargement of the prostate gland. 6. New bilateral pleural effusions as well as bibasilar infiltrates. Amador Leiva MD Abdomen X-Ray 11/18/17 0000 Signed Impressions: Service Date/Time: Saturday, November 18, 2017 16:18 - CONCLUSION: Unchanged bowel gas pattern. Jesus Deal Jr., MD Procedures Catheterization Objective Remarks GENERAL: Well-nourished, well-developed patient, lying in bed awake SKIN: Skin assessment warm/dry. HEAD: Normocephalic. EYES: Pupils equal and reactive.EOMI. NECK: Supple, trachea midline. + JVD CARDIOVASCULAR: Regular rate and rhythm S1, S2. No S4. Without murmurs, RESPIRATORY: Breath sounds equal bilaterally. Breath sounds diminished in bases. No accessory muscle use. GASTROINTESTINAL: Abdomen soft, nondistended. Right inguinal hernia : CBI ongoing with hematuria noted MUSCULOSKELETAL: No cyanosis, or edema. NEURO: GCS 15. No obvious focal deficit. Moves extremities 4 A/P Assessment and Plan NEURO/PSYCH: Bladder spasm/pain Hydromorphone 0.25 to 0.5 mg IV every 4 hours as needed pain Melatonin 5 mg daily at bedtime when necessary for insomnia Oxybutynin PRN RESP: Continue with oxygen keep sats >92% Incentive spirometry while awake Albuterol/ipratropium aerosols every 6 hours with albuterol aerosols every 2 hours as needed dyspnea Continued incentive spirometry CXR 11/23- some improvements in b/l pulm infiltrates CV: STEMI s/p LAD Stent V. tach Elevated troponin Lactic acidosis- Cleared Monitor HR and BP keep MAP>65mmHg -Continue aspirin 162 mg daily, clopidogrel 75 mg daily, Carvedilol 3.125 mg p.o. twice daily, Atorvastatin 10 mg p.o. daily for dyslipidemia, Amiodarone 200mg Q12 2-D echo with low LVEF 35-40%. Anterior lateral wall akinesia. Not on Feliciano- In due to renal failure 11/18 Consulted EPS-medical management secondary to the criticality of the patient , plan for possible Life Vest/defibrillator , Dr. Del Rio discussed with Dr. Jackson GI: Constipation Elevated AST Hypoalbuminemia Right inguinal hernia Diverticulosis GI is following CT abdomen/pelvis earlier this hospitalization revealed right inguinal hernia without signs of strangulation, hiatal hernia, diverticulosis without diverticulitis and BPH 11/19 CT abdomen and pelvis repeated-no change right inguinal hernia containing loops of small and large bowel no mechanical obstruction now new bilateral pleural effusions. BPH Pantoprazole for GI prophylaxis Bowel regimen On regular diet : Gross hematuria Status post cystoscopy and fulguration BPH KIARA - Continuous bladder irrigation with Amicar per urology - Once CBI discontinued, patient will require an indwelling Hernández catheter for an extended period of time to allow any residual clot material to dissolve per Dr. Roberts. -Monitor renal function, I/O's, avoid nephrotoxins -Renal function continue to decline with Cr: 5.44 today. - Renal and Urology are following- continue NS@84ml/hr residual clot material to dissolve. Continue tamsulosin 0.4 mg p.o. daily 11/22: Renal ultrasound. Intraluminal mass versus debris within the urinary bladder completely encasing the Hernández catheter.Mass versus debris within the urinary bladder completely encasing the Hernández catheter. Simple right renal cyst. No evidence of hydronephrosis.Dr. Lee from Urology is following ID: Leukocytosis.. trending down Abx per ID ( On Cefepime, Diflucan ) monitor for signs of infections ( fever, WBC) HEME: Normocytic anemia Acute blood loss anemia -Status post 5 units PRBCs since admission -Monitor CBC -Transfuse to keep hemoglobin more than [address] Kelley's request. -Monitor CBC -Patient received 2 units packed red blood cells 11/21, 1 unit PRBCs 11/22 ENDO/FEN: Electrolyte derangement -Electrolyte replacement per protocol TSH normal PROPH: -Bilateral lower extremity SCDs. Chemical DVT prophylaxis is contraindicated at this time, organized clots flush from bladder. Continue SCDs LINES: -Utilize peripheral IVs Level 2 Acosta Jorgensen MD Nov 24, 2017 07:28
[2017-11-24] MEDS: INSULIN ASPART SUPPLEMENTAL SCALE SQ SCH ×4 (08:00→20:57)
[2017-11-24] MEDS: CARVEDILOL 3.125 MG TAB PO SCH ×2 (08:16→20:57)
[2017-11-24] MEDS: LACTULOSE SYRUP 20 GM/30 ML CUP PO SCH (08:16)
[2017-11-24] MEDS: FLUCONAZOLE 100 MG TAB PO SCH (08:16)
[2017-11-24] MEDS: ASPIRIN 81 MG CHEW TAB PO SCH (08:16)
[2017-11-24] MEDS: CLOPIDOGREL 75 MG TAB PO SCH (08:16)
[2017-11-24] MEDS: DOCUSATE SODIUM 50 MG/SENNA 8.6 MG TAB PO SCH ×2 (08:16→20:57)
[2017-11-24] MEDS: AMIODARONE 200 MG TAB PO SCH ×2 (08:16→20:56)
[2017-11-24] MEDS: TAMSULOSIN HCL 0.4 MG CAP PO SCH (08:16)
[2017-11-24] MEDS: POLYETHYLENE GLYCOL 17 GM PKG PO SCH (08:17)
[2017-11-24] MEDS: SODIUM CHLORIDE 0.9% FLUSH 10 ML FLUSH IV FLUSH SCH ×2 (08:17→20:56)
[2017-11-24] MEDS: PANTOPRAZOLE SODIUM 40 MG VIAL IV PUSH SCH (08:17)
--- NOTE | 2017-11-24 09:47 | HHI.IDPN ---
Subjective Subjective Remarks Patient is an 82-year-old male presented to the hospital for evaluation of hematuria. Patient has known BPH, and last year around the same time he was admitted for hematuria and suprapubic pain. He underwent cystoscopy and evacuation of clots, fulguration of the bleeding site within the prostatic urethra, and a Ma catheter was removed. He followed up with the urologist after about 4 days, and apparently has not had any problem with hematuria up until this admission. Urology was consulted. Patient had continuous bladder irrigation, and his bleeding was not being controlled, so he underwent cystoscopy and fulguration of the prostatic bleeding. Since then he's had problem with persistent hematuria. His hemoglobin had dropped requiring blood transfusion. On November 13 he complained of chest pain, and EKGs changes showed an acute MD. Cardiac catheter was done. Patient also has had problem with VT, and that seems to be under control with medications. On November 29 start having problem with increasing oxygen requirement. His chest x-ray has shown no bilateral infiltrates with effusions. He has been afebrile. He states he still has some shortness of breath but not worse. He is on nasal O2. His hemodynamics are okay. Today his white count went up to 20,000, an infectious disease consultation has been requested to evaluate the patient. Patient's hematuria has been under control and he has blood-tinged urine. However overnight he started having monica hematuria. His Ma catheter was changed and a bigger size was placed. Bladder scan yesterday was 720, and he had a good urine output after replacement of the Ma. As of this morning, patient has monica hematuria, and has low output. He is complaining of lower abdominal pain. There has been no diarrhea. He denies any cough or chest congestion. He denies chest pain. There is been no nausea or vomiting. He is swallowing okay. Patient has no central line. Patient has been on multiple antibiotics. He was on Cipro from November 10 2 November 16. He has been on Rocephin since November 17, and he got 1 dose of vancomycin yesterday. Infectious disease consultation has been requested to evaluate the patient. Notes reviewed D/W RN Temps ok BP ok Getting CBI - urine pink color Creatinine rising WBC down to normal CXR better Tired this morning Antibiotics Cefepime Diflucan Current Medications Medications (Trade) Dose Ordered Sig/Micheal Route Start Time Stop Time Status Last Admin (Narcan Inj) 0.4 mg UNSCH PRN IV PUSH 11/10/17 14:15 (Flomax) 0.4 mg DAILY PO 11/11/17 09:00 11/24/17 08:16 (Catapres) 0.1 mg Q6H PRN PO 11/10/17 18:15 11/11/17 20:52 Aminocaproic Acid 3000 mg/Sodium Chloride 3,012 ml @ 0 mls/hr UNSCH IRRIGATION 11/13/17 14:15 Future Hold 11/20/17 09:19 (NS Flush) 2 ml UNSCH PRN IV FLUSH 11/13/17 16:45 (NS Flush) 2 ml BID IV FLUSH 11/13/17 21:00 11/24/17 08:17 (Aspirin Chew) 162 mg DAILY PO 11/14/17 09:00 11/24/17 08:16 (Plavix) 75 mg DAILY PO 11/14/17 09:00 11/24/17 08:16 (Coreg) 3.125 mg BID PO 11/13/17 21:00 11/24/17 08:16 (Lipitor) 10 mg HS PO 11/13/17 21:00 11/23/17 20:38 (Zofran Inj) 4 mg Q6HR PRN IV PUSH 11/13/17 19:30 11/18/17 04:04 Aminocaproic Acid 1000 mg/Sodium Chloride 1,004 ml @ 0 mls/hr UNSCH IRRIGATION 11/14/17 17:00 Future Hold (Protonix Inj) 40 mg DAILY IV PUSH 11/17/17 09:00 11/24/17 08:17 (Miralax) 17 gm DAILY PO 11/17/17 11:00 11/24/17 08:17 Miscellaneous Information Patient in critical care unit? Ass... [id number] .XX 11/17/17 20:45 11/17/17 20:45 (Dilaudid Pf Inj) 0.5 mg Q4H PRN IV 11/17/17 21:15 11/22/17 17:58 (Dilaudid Pf Inj) 0.2 mg Q4H PRN IV PUSH 11/17/17 21:15 Acetaminophen 100 ml @ 400 mls/hr Q8HR PRN IV 11/17/17 21:15 (Albuterol Neb) 2.5 mg Q2HR NEB PRN NEB 11/17/17 21:15 11/18/17 01:46 (Lelia-Colace) 1 tab BID PO 11/18/17 09:00 11/24/17 08:16 (Lactulose Liq) 30 ml DAILY PO 11/18/17 09:00 11/24/17 08:16 (Melatonin) 5 mg HS PRN PO 11/18/17 20:00 (Cordarone) 400 mg Q12HR PO 11/19/17 17:00 11/25/17 17:00 11/24/17 08:16 (Cordarone) 200 mg Q12H PO 11/26/17 05:00 (Duoneb Neb) 1 ampule Q6HR NEB NEB 11/21/17 10:00 11/24/17 03:26 (NovoLOG SUPPLEMENTAL SCALE) 1 ACHS SLIDING SCALE SQ 11/21/17 12:00 11/21/17 21:00 (D50w (Vial) Inj) 50 ml UNSCH PRN IV PUSH 11/21/17 09:30 (Glucagon Inj) 1 mg UNSCH PRN OTHER 11/21/17 09:30 Cefepime HCl 1000 mg/Sodium Chloride 100 ml @ 200 mls/hr Q24H IV 11/21/17 10:00 11/23/17 08:17 (Diflucan) 100 mg DAILY PO 11/21/17 10:15 11/24/17 08:16 (Ditropan) 5 mg Q12H PRN PO 11/22/17 18:00 11/22/17 18:04 Sodium Chloride 1,000 ml @ 84 mls/hr [id number] IV 11/23/17 09:00 11/24/17 01:20 Past Medical History BPH Hypertension Previous episode of hematuria in 2017 Past Surgical History TURP 2006 Allergies: Coded Allergies: No Known Allergies (Verified Allergy, Unknown, 11/10/17) Objective . Vital Signs Date Time Temp Pulse Resp B/P (MAP) Pulse Ox O2 Delivery O2 Flow Rate FiO2 11/24/17 08:00 98.0 69 18 130/59 (82) 100 11/24/17 08:00 66 11/24/17 06:00 75 11/24/17 04:00 98.3 70 23 130/87 (101) 99 11/24/17 04:00 70 11/24/17 03:26 100 Nasal Cannula 2.00 11/24/17 02:00 66 11/24/17 00:00 98.3 67 22 106/62 (77) 97 11/24/17 00:00 67 11/23/17 22:00 74 11/23/17 20:00 75 11/23/17 20:00 98.0 75 20 131/60 (83) 97 11/23/17 19:32 95 21 11/23/17 18:00 65 11/23/17 16:00 71 11/23/17 16:00 98.4 71 21 115/59 (77) 96 11/23/17 14:00 68 11/23/17 12:00 98.3 71 17 110/63 (79) 99 11/23/17 12:00 71 11/23/17 10:00 77 . Laboratory Tests Test 11/22/17 15:20 11/23/17 03:40 11/24/17 02:40 Hemoglobin 8.9 GM/DL 9.1 GM/DL 9.0 GM/DL Hematocrit 25.7 % 25.7 % 25.2 % White Blood Count 10.0 TH/MM3 10.4 TH/MM3 Red Blood Count 2.96 MIL/MM3 2.89 MIL/MM3 Mean Corpuscular Volume 86.9 FL 87.3 FL Mean Corpuscular Hemoglobin 30.7 PG 31.1 PG Mean Corpuscular Hemoglobin Concent 35.4 % 35.6 % Red Cell Distribution Width 15.0 % 15.1 % Platelet Count 180 TH/MM3 172 TH/MM3 Mean Platelet Volume 9.5 FL 9.1 FL Neutrophils (%) (Auto) 77.5 % Lymphocytes (%) (Auto) 12.7 % Monocytes (%) (Auto) 7.3 % Eosinophils (%) (Auto) 2.4 % Basophils (%) (Auto) 0.1 % Neutrophils # (Auto) 8.1 TH/MM3 Lymphocytes # (Auto) 1.3 TH/MM3 Monocytes # (Auto) 0.8 TH/MM3 Eosinophils # (Auto) 0.2 TH/MM3 Basophils # (Auto) 0.0 TH/MM3 CBC Comment DIFF FINAL Differential Comment Laboratory Tests Test 11/22/17 15:20 11/23/17 03:40 3/13/18 02:40 Blood Urea Nitrogen 48 MG/DL 55 MG/DL 61 MG/DL Creatinine 4.59 MG/DL 5.21 MG/DL 5.44 MG/DL Random Glucose 102 MG/DL 91 MG/DL 84 MG/DL Total Protein 5.0 GM/DL 5.1 GM/DL 5.0 GM/DL Calcium Level 7.3 MG/DL 7.3 MG/DL 7.0 MG/DL Sodium Level 140 MEQ/L 139 MEQ/L 141 MEQ/L Potassium Level 3.6 MEQ/L 3.7 MEQ/L 3.9 MEQ/L Chloride Level 104 MEQ/L 104 MEQ/L 104 MEQ/L Carbon Dioxide Level 25.1 MEQ/L 24.5 MEQ/L 22.0 MEQ/L Anion Gap 11 MEQ/L 11 MEQ/L 15 MEQ/L Estimat Glomerular Filtration Rate 12 ML/MIN 11 ML/MIN 10 ML/MIN Protein Corrected Calcium 8.5 MG/DL 8.4 MG/DL 8.1 MG/DL Phosphorus Level 5.6 MG/DL Magnesium Level 2.4 MG/DL Microbiology Date/Time Source Procedure Growth Status 11/21/17 11:05 Blood Peripheral Aerobic Blood Culture - Preliminary NO GROWTH IN 2 DAYS Resulted 11/21/17 11:05 Blood Peripheral Anaerobic Blood Culture - Preliminary NO GROWTH IN 2 DAYS Resulted 11/21/17 10:55 Blood Peripheral Aerobic Blood Culture - Preliminary NO GROWTH IN 2 DAYS Resulted 11/21/17 10:55 Blood Peripheral Anaerobic Blood Culture - Preliminary NO GROWTH IN 2 DAYS Resulted Imaging Last Impressions Chest X-Ray 11/22/17 0600 Signed Impressions: Service Date/Time: Wednesday, November 22, 2017 03:35 - CONCLUSION: No significant change. Persistent patchy bilateral airspace opacities. Eduin Landa MD Chest CT 11/20/17 0000 Signed Impressions: Service Date/Time: Monday, November 20, 2017 22:03 - CONCLUSION: Diffuse confluent airspace opacities throughout both lungs obscuring portions of the right middle lobe. There is associated large bilateral pleural effusions. Jesus Martinez MD Abdomen/Pelvis CT 11/19/17 0819 Signed Impressions: Service Date/Time: November 09:06 - CONCLUSION: 1. The bowel gas pattern remains within normal limits. No mechanical obstruction. 2. There is a right inguinal hernia containing loops of small and large bowel without obstruction. 3. There is a Ma catheter in urinary bladder. However, the balloon on the Ma catheter appears to be inflated within the prostatic urethra. This may need to be adjusted. 4. There continues to be mixed density within the urinary bladder as well as air. This is not significantly changed compared to the prior exam. 5. Diffuse enlargement of the prostate gland. 6. New bilateral pleural effusions as well as bibasilar infiltrates. Amador Leiva MD Abdomen X-Ray 11/18/17 0000 Signed Impressions: Service Date/Time: Saturday, November 18, 2017 16:18 - CONCLUSION: Unchanged bowel gas pattern. Jesus Deal Jr., MD Physical Exam GENERAL: resting, not in respiratory distress. SKIN: Cold and dry. No generalized rash HEAD: Atraumatic. Normocephalic. No temporal wasting, or tenderness. EYES: Pale conjunctiva. No petechia or hemorrhage. Pupils equal, round and reactive to light. No scleral icterus. No injection or drainage. EARS, NOSE AND THROAT: Nose without bleeding or purulent nasal discharge. No sinus tenderness. Dry oral mucosa. NECK: Trachea midline. Supple and not tender, no meningeal signs CARDIOVASCULAR: Regular rate and rhythm. No murmurs, rubs or gallops heard RESPIRATORY: Coarse breath sounds bilaterally. Decreased at the bases. ABDOMEN: Soft, nondistended. Bowel sounds present and normoactive. Not tender. : Ma in place pink urine EXTREMITIES: No clubbing, cyanosis, or edema. No calf tenderness. NEUROLOGICAL: Awake and alert. Cranial nerves grossly intact. Motor grossly within normal limits. PSYCHIATRIC: Normal affect, calm and cooperative. LINE: No evidence of infection Assessment & Plan Remarks IMPRESSION Leukocytosis most likely reactive due to urinary retention from obstruction related to blood clots, hematuria - resolved Bilateral pulmonary infiltrates due to pulmonary edema - no clinical evidence of PNA, no cough or congestion, no fever BPH, with persistent gross hematuria Anemia due to blood loss from hematuria Acute rise in creatinine, etiology? - patient got only one dose of Vanco 11/20 RECOMMENDATION Stop Cefepime Stop Diflucan If stable will consider D/C Abx in few days Urology following Monitor progress D/W Fabiola Davila MD Nov 24, 2017 09:47
[2017-11-24] MEDS: ATORVASTATIN 10 MG TAB PO SCH (20:57)
[2017-11-25] VITALS (11 sets, daily range): BP systolic 84–128; BP diastolic 49–63; PULSE 66–98; RESP 14–26; TEMP 96.8–98.8; O2SAT 91–100
[2017-11-25] MEDS: RESP: ALBUTEROL 2.5 MG/IPRATROPIUM 0.5 MG NEB (SCH) NEB (03:47)
[2017-11-25] MEDS: HYDROmorphone HCL PF 2 MG/ML VIAL IV PRN ×2 (05:59→09:43)
[2017-11-25] MEDS ORDERED: LIDOCAINE HCL 2% JELLY 5 ML SYRINGE TOPICAL ONE (07:00)
[2017-11-25] MEDS: INSULIN ASPART SUPPLEMENTAL SCALE SQ SCH ×4 (08:00→21:00)
[2017-11-25] MEDS: ONDANSETRON HCL 4 MG/2 ML VIAL IV PUSH PRN ×2 (08:06→08:07)
--- NOTE | 2017-11-25 08:45 | HHI.CCPN ---
Subjective Remarks/Hospital Course 11/13: Patient is an 82-year-old male with past medical history of BPH, tobacco abuse who presented 11/12/2017 with dysuria, hematuria and urinary retention. Patient was admitted to the hospitalist service and underwent cystoscopy with fulguration by Dr. Lee. Was also placed on continuous bladder irrigation. Patient developed chest pain today a.m. EKG showed significant anterolateral ST elevation troponin bumped to 6.5 emergently taken to cardiac catheterization by Dr. Kelley. Received PCI, LAD stent,. Was loaded with 600 mg Plavix and was started on Aggrastat. Post stenting went to [facility] developed hypotension and was moved to the CVICU. Initially seen by Dr. Ryan patient had gross hematuria so O negative blood 2 units were ordered stat. I evaluated the patient in CVICU. He is persistently hypotensive receiving first 2 units of blood. Started on 1 mcg/min Levophed. Remains borderline hypotensive. Patient has significant gross hematuria, and is on CBI. He is anxious and complains about 9 out of 10 chest pain, I am starting on nitro drip. Patient may need IABP pain not resolved with nitro and Dilaudid/ Morphine. I have discussed with Dr. Kelley. 11/14: Resting comfortably in bed. Received 3 units PRBCs yesterday. Chest pain resolved currently. CBI with Amicar ongoing. Minimal pink tinged CBI fluid noted. 11/15: Resting comfortably. Denies SOB or abd pain. No chest pain currently. Reconsult 11/17: Patient 10 minute episode of reperfusion rhythm/V. tach. Potassium is 3.2. Magnesium 1.8 this a.m. Given 2 g mag sulfate IV 1 now. We placed on amiodarone drip. Discussed with Dr. Kelley [place] [facility] [place] 11/18: Late entry note. Patient was noted to be hypokalemic this a.m. repletion provided. Patient denies any chest pain. Patient remains in sinus rhythm, amiodarone infusion continued. Family at bedside requesting possible transfer to another facility secondary to disappointment and care being provided. Case management consult initiated. EPS consulted, Dr. Jackson. Discussed with , family's request and plan of treatment. 11/19: Oxygen requirements increased overnight, now on partial rebreather ,chest x -ray showed new bilateral pleural effusions. IV fluids discontinued. Lasix 40 mg IV given 1 dose. The patient denies pain resting comfortably. Amiodarone continues IV infusion, plans to transition to PO today, discussed with Dr. Jackson. 11/20: Chest x-ray worsening, aggressive diuresis continued the patient received Lasix 80 mg yesterday. Patient continues on partial nonrebreather mask O2 sat 95% CT chest pending. Persistent leukocytosis noted ID has been consulted. Empiric antibiotics have been initiated. Patient had BM last evening, diet has been advanced to clear liquid per GI. 11/21: Afebrile. Patient denies chest pain. Slight improvement in chest x-ray, FiO2 requirement slightly decreased patient currently on O2 at 4 L nasal cannula. Patient continues to have bilateral pleural effusions and pulmonary edema, with slight improvement. Overnight the patient was noted to have urinary obstruction, Dr. Lee notified, 3-way Hernández change from 22 Pakistani to 24F, patient was noted to have significant pain, patient received belladonna, Dilaudid and bladder was irrigated concurrently with a noted drop in blood pressure with a systolic in the 70s. Diuresis (Lasix) held for 24 hours , secondary to increasing creatinine to 2.0, possibly due to urinary obstruction last evening versus diuretic therapy. Noted resolution without medical intervention. Gross hematuria was again noted after placement of the new 3-way Hernández. Hemoglobin at midnight was noted to be 8.3, no transfusion was provided, hemoglobin this a.m. 7.7, patient to be transfused 2 units packed red blood cells,with posttransfusion CBC. Patient was seen by ID, antibiotics per ID recommendations. Provided extensive discussion with family, regarding overnight events and plans for treatment today. 11/21: 1300- Pt's MAP ranging 55-60. Risk and benefits discussed with family consent obtained from POA plan for central line placement and initiate Levophed infusion. 11/22: Norepinephrine discontinued at 1900 last evening. The patient remains hemodynamically stable. A.m labs reveal elevated creatinine, concern for obstruction, renal ultrasound performed, Dr. Shi notified of results.Renal US revealed mass versus debris obstructing lumen of Hernández Patient denies pain, CBI continued. Hemoglobin 8.21 unit of packed red blood cells being transfused to maintain HGB 9.0.Multiple repeated flushing and irrigation of hernández. Repeat BMP pending. 11/23 No events overnight. Awake and alert. Renal function is worsening with Cr: 5.21 from 4.59, 11/24 Patient is lying in bed in NAD. Afebrile. Cr: 5.44. On CBI per Urology. 11/25: C/o nausea after receiving pain meds. Continues to have hematuria on CBI. CMP is pending today. No chest pain Objective Vital Signs Date Time Temp Pulse Resp B/P (MAP) Pulse Ox O2 Delivery O2 Flow Rate FiO2 11/25/17 06:00 96 11/25/17 04:00 96.8 23 128/63 (84) 100 11/24/17 19:40 21 11/24/17 03:26 Nasal Cannula 2.00 Intake and Output 11/25/17 11/25/17 11/26/17 08:00 16:00 00:00 Intake Total 240 ml Balance 240 ml Result Diagram: 11/24/17 0240 11/24/17 0240 Imaging Last Impressions Chest X-Ray 11/23/17 0600 Signed Impressions: Service Date/Time: Thursday, November 23, 2017 03:08 - CONCLUSION: Some improvement in the bilateral patchy infiltrates. Jesus Deal Jr., MD Renal Ultrasound 11/22/17 0000 Signed Impressions: Service Date/Time: Wednesday, November 22, 2017 10:23 - CONCLUSION: 1. Intraluminal mass versus debris within the urinary bladder completely encasing the Hernández catheter. 2. Simple right renal cyst. 3. No evidence of hydronephrosis. Isaias Hanna MD Chest CT 11/20/17 0000 Signed Impressions: Service Date/Time: Monday, November 20, 2017 22:03 - CONCLUSION: Diffuse confluent airspace opacities throughout both lungs obscuring portions of the right middle lobe. There is associated large bilateral pleural effusions. Jesus Martinez MD Abdomen/Pelvis CT 11/19/17 0819 Signed Impressions: Service Date/Time: November 09:06 - CONCLUSION: 1. The bowel gas pattern remains within normal limits. No mechanical obstruction. 2. There is a right inguinal hernia containing loops of small and large bowel without obstruction. 3. There is a Hernández catheter in urinary bladder. However, the balloon on the Hernández catheter appears to be inflated within the prostatic urethra. This may need to be adjusted. 4. There continues to be mixed density within the urinary bladder as well as air. This is not significantly changed compared to the prior exam. 5. Diffuse enlargement of the prostate gland. 6. New bilateral pleural effusions as well as bibasilar infiltrates. Amador Leiva MD Abdomen X-Ray 11/18/17 0000 Signed Impressions: Service Date/Time: Saturday, November 18, 2017 16:18 - CONCLUSION: Unchanged bowel gas pattern. Jesus Deal Jr., MD Procedures Catheterization Objective Remarks GENERAL: Well-nourished, well-developed patient, lying in bed awake, nauseated SKIN: Skin assessment warm/dry. HEAD: Normocephalic. EYES: Pupils equal and reactive.EOMI. NECK: Supple, trachea midline. + JVD CARDIOVASCULAR: Regular rate and rhythm S1, S2. No S4. Without murmurs, RESPIRATORY: Breath sounds equal bilaterally. Breath sounds diminished in bases. No accessory muscle use. GASTROINTESTINAL: Abdomen soft, nondistended. Right inguinal hernia : CBI ongoing with hematuria noted MUSCULOSKELETAL: No cyanosis, or edema. NEURO: Alert awake oriented. No obvious focal deficit. Moves extremities 4 A/P Assessment and Plan NEURO/PSYCH: Bladder spasm/pain Hydromorphone 0.25 to 0.5 mg IV every 4 hours as needed pain, Zofran for nausea Melatonin 5 mg daily at bedtime when necessary for insomnia Oxybutynin PRN RESP: Continue with oxygen keep sats >92% Incentive spirometry while awake Albuterol/ipratropium aerosols every 6 hours with albuterol aerosols every 2 hours as needed dyspnea CXR 11/23- some improvements in b/l pulm infiltrates CV: STEMI s/p LAD Stent V. tach Elevated troponin Lactic acidosis- Cleared Monitor HR and BP keep MAP>65mmHg -Continue aspirin 162 mg daily, clopidogrel 75 mg daily, Carvedilol 3.125 mg p.o. twice daily, Atorvastatin 10 mg p.o. daily for dyslipidemia, Amiodarone 200mg Q12 2-D echo with low LVEF 35-40%. Anterior lateral wall akinesia. Not on Feliciano- In due to renal failure 11/18 Consulted EPS-medical management secondary to the criticality of the patient , plan for possible Life Vest/defibrillator , Dr. Del Rio discussed with Dr. Jackson GI: Elevated AST Hypoalbuminemia Right inguinal hernia Diverticulosis Constipation GI is following CT abdomen/pelvis earlier this hospitalization revealed right inguinal hernia without signs of strangulation, hiatal hernia, diverticulosis without diverticulitis and BPH 11/19 CT abdomen and pelvis repeated-no change right inguinal hernia containing loops of small and large bowel no mechanical obstruction now new bilateral pleural effusions. BPH Pantoprazole for GI prophylaxis Bowel regimen On regular diet : Gross hematuria Status post cystoscopy and fulguration BPH KIARA -Continuous bladder irrigation with Amicar per urology -Once CBI discontinued, patient will require an indwelling Hernández catheter for an extended period of time to allow any residual clot material to dissolve per Dr. Roberts. -Monitor renal function, I/O's, avoid nephrotoxins -Renal function continue to worsen with Cr: 5.44 11/24. CMP today pending - Renal and Urology are following- continue NS@84ml/hr residual clot material to dissolve. Continue tamsulosin 0.4 mg p.o. daily 11/22: Renal ultrasound. Intraluminal mass versus debris within the urinary bladder completely encasing the Hernández catheter.Mass versus debris within the urinary bladder completely encasing the Hernández catheter. Simple right renal cyst. No evidence of hydronephrosis.Dr. Lee from Urology is following ID: Leukocytosis.. trending down Abx per ID ( On Cefepime, Diflucan ) monitor for signs of infections ( fever, WBC) HEME: Normocytic anemia Acute blood loss anemia -Status post 5 units PRBCs since admission -Monitor CBC -Transfuse to keep hemoglobin more than [address] Kelley's request. -Monitor CBC -Patient received 2 units packed red blood cells 11/21, 1 unit PRBCs 11/22 ENDO/FEN: Electrolyte derangement -Electrolyte replacement per protocol TSH normal PROPH: -Bilateral lower extremity SCDs. Chemical DVT prophylaxis is contraindicated at this time, organized clots flush from bladder. Continue SCDs LINES: -Utilize peripheral IVs Level 2 Maurice Denny MD Nov 25, 2017 08:45
[2017-11-25] MEDS: POLYETHYLENE GLYCOL 17 GM PKG PO SCH (09:00)
[2017-11-25] MEDS: TAMSULOSIN HCL 0.4 MG CAP PO SCH (09:00)
[2017-11-25] MEDS: DOCUSATE SODIUM 50 MG/SENNA 8.6 MG TAB PO SCH ×2 (09:00→21:00)
[2017-11-25] MEDS: LACTULOSE SYRUP 20 GM/30 ML CUP PO SCH (09:00)
[2017-11-25] MEDS: SODIUM CHLORIDE 0.9% FLUSH 10 ML FLUSH IV FLUSH SCH ×2 (09:36→21:00)
[2017-11-25] MEDS: PANTOPRAZOLE SODIUM 40 MG VIAL IV PUSH SCH (09:37)
[2017-11-25] MEDS: CLOPIDOGREL 75 MG TAB PO SCH (09:37)
[2017-11-25] MEDS: CARVEDILOL 3.125 MG TAB PO SCH ×2 (09:38→21:00)
[2017-11-25] MEDS: AMIODARONE 200 MG TAB PO SCH (09:38)
[2017-11-25] MEDS: ASPIRIN 81 MG CHEW TAB PO SCH (09:39)
[2017-11-25] MEDS: SODIUM CHLOR 0.9% 1000 ML INJ 1,000 ML IV SCH ×2 (09:39→10:24)
--- NOTE | 2017-11-25 09:53 | HHI.NPPN ---
Subjective Renal Problems: Hematuria Renal Failure: Acute History of Present Illness This is an 82-year-old male with a past medical history of hypertension, benign prostatic hypertrophy, history of TURP in 2006, possible history of mild chronic kidney disease with creatinine on presentation of 1.3 and remained in the range of 1.2 to 1.3 most of the time. He presented to the hospital and was admitted on 11/10 because of hematuria. Nephrology was called to see the patient because of elevated BUN and creatinine. The patient has been followed by Urology and the impression was the patient has possible prostatic bleeding and continue the Hernández catheter and irrigation (this was on admission), and continue the Flomax. It was recently found on the ultrasound of the kidneys, that he has intraluminal mass versus ___ _ in the urinary bladder. The creatinine has been gradually going up, and now it is 4.5. The patient has bloody urine and is to continue the bladder irrigation. He has nausea or vomiting, no history of diarrhea. The patient has all the cultures negative, and currently he is getting Diflucan and cefepime. Infectious Disease is following. Additional Remarks Patient is alert and oriented. Indwelling Hernández catheter intact with irrigation. Urine with gross hematuria noted. (Karen Ch) Review of Systems Respiratory Respiratory Remarks Denies any SOB (Karen Ch) Cardiovascular Cardiac Remarks denies any CP (Karen Ch) Genitourinary Remarks suprapubic discomfort (Karen Ch) Objective Data Data Vital Signs Date Time Temp Pulse Resp B/P (MAP) Pulse Ox O2 Delivery O2 Flow Rate FiO2 11/25/17 06:00 96 11/25/17 04:00 96.8 68 23 128/63 (84) 100 11/25/17 04:00 68 11/25/17 02:00 72 11/25/17 00:00 69 11/25/17 00:00 98.4 69 26 116/56 (76) 91 11/24/17 22:00 71 11/24/17 20:00 98.5 71 23 114/56 (75) 98 11/24/17 20:00 71 11/24/17 19:40 96 21 11/24/17 18:00 69 11/24/17 16:00 98.3 69 28 116/56 (76) 97 11/24/17 16:00 67 11/24/17 14:00 67 11/24/17 12:00 62 11/24/17 12:00 98.0 68 24 113/56 (75) 96 11/24/17 10:00 60 (Karen Ch) -: 11/24/17 0240 11/24/17 0240 Imaging Last Impressions Chest X-Ray 11/23/17 0600 Signed Impressions: Service Date/Time: Thursday, November 23, 2017 03:08 - CONCLUSION: Some improvement in the bilateral patchy infiltrates. Jesus Deal Jr., MD Renal Ultrasound 11/22/17 0000 Signed Impressions: Service Date/Time: Wednesday, November 22, 2017 10:23 - CONCLUSION: 1. Intraluminal mass versus debris within the urinary bladder completely encasing the Hernández catheter. 2. Simple right renal cyst. 3. No evidence of hydronephrosis. Isaias Hanna MD Chest CT 11/20/17 0000 Signed Impressions: Service Date/Time: Monday, November 20, 2017 22:03 - CONCLUSION: Diffuse confluent airspace opacities throughout both lungs obscuring portions of the right middle lobe. There is associated large bilateral pleural effusions. Jesus Martinez MD Abdomen/Pelvis CT 11/19/17 0819 Signed Impressions: Service Date/Time: November 09:06 - CONCLUSION: 1. The bowel gas pattern remains within normal limits. No mechanical obstruction. 2. There is a right inguinal hernia containing loops of small and large bowel without obstruction. 3. There is a Hernández catheter in urinary bladder. However, the balloon on the Hernández catheter appears to be inflated within the prostatic urethra. This may need to be adjusted. 4. There continues to be mixed density within the urinary bladder as well as air. This is not significantly changed compared to the prior exam. 5. Diffuse enlargement of the prostate gland. 6. New bilateral pleural effusions as well as bibasilar infiltrates. Amador Leiva MD Abdomen X-Ray 11/18/17 0000 Signed Impressions: Service Date/Time: Saturday, November 18, 2017 16:18 - CONCLUSION: Unchanged bowel gas pattern. Jesus Deal Jr., MD Tubes & Lines: Hernández (Gellermann,Karen M. INVESTIGATION SPECIALIST) Physical Exam General Appearance: Anxious (Karen Ch) Pulmonary Resp Exam: Breath Sounds Equal, No Distress (Karen Ch) Cardiology CV Exam: Regular (Karen Ch) Gastrointestinal/Abdomen GI Exam: Bowel Sounds Present (Karen Ch) Genitourinary Exam: Flank Non-Tender Remarks Gross hematuria noted (Karen Ch) Integumentary Skin Exam: Warm, Dry (Karen Ch) Extremeties Extremities Exam: No Edema (Karen hC) Neurologic Neuro Exam: Alert, Awake (Karen Ch) Psychiatric Psych Exam: Appropriate Responses (Karen Ch) Assessment/Plan Discussed Condition With: Patient Assessment Summary: KIARA/Acute Renal Failure Electrolyte Assessment: Hypocalcemia Problem List: (1) KIARA (acute kidney injury) ICD Codes: N17.9 - Acute kidney failure, unspecified Plan: Acute kidney injury possibly related to obstruction or period of hypotension. 11/22: Renal ultrasound. Intraluminal mass versus debris within the urinary bladder completely encasing the Hernández catheter. Mass versus debris within the urinary bladder completely encasing the Hernández catheter. Simple right renal cyst. No evidence of hydronephrosis Urology is consulted. Renal function continues to worsen with Cr: 5.21 yesterday labs are pending today. Plan Continue continuous bladder irrigation Will continue to monitor renal function and UOP Avoid nephrotoxins Continue gently hydration With worsening renal function patient may need possible dialysis. Patient Indwelling Hernández needed to be changed today for obstruction. Nursing also manually irrigating for clot removal. (2) Gross hematuria ICD Codes: R31.0 - Gross hematuria Status: Acute Plan: Indwelling hernández catheter. Urology consulted (3) Obstructive uropathy ICD Codes: N13.9 - Obstructive and reflux uropathy, unspecified Status: Acute (4) BPH (benign prostatic hyperplasia) ICD Codes: N40.0 - Benign prostatic hyperplasia without lower urinary tract symptoms Status: Acute (5) Hypertension ICD Codes: I10 - Essential (primary) hypertension Status: Acute Plan: Well controlled (Karen Ch) Problem List: (1) KIARA (acute kidney injury) ICD Codes: N17.9 - Acute kidney failure, unspecified Plan: Acute kidney injury possibly related to obstruction or period of hypotension. 11/22: Renal ultrasound. Intraluminal mass versus debris within the urinary bladder completely encasing the Hernández catheter. Mass versus debris within the urinary bladder completely encasing the Hernández catheter. Simple right renal cyst. No evidence of hydronephrosis Urology is consulted. Renal function continues to worsen with Cr: 5.21 yesterday labs are pending today. Plan Continue continuous bladder irrigation Will continue to monitor renal function and UOP Avoid nephrotoxins Continue gently hydration With worsening renal function patient may need possible dialysis. Patient seen going to OR. To get Cystoscopy, Creatinine is slightly better. Hold HD for now, and follow the BMP. (2) Gross hematuria ICD Codes: R31.0 - Gross hematuria Status: Acute Plan: Indwelling hernández catheter. Urology consulted (3) Obstructive uropathy ICD Codes: N13.9 - Obstructive and reflux uropathy, unspecified Status: Acute (4) BPH (benign prostatic hyperplasia) ICD Codes: N40.0 - Benign prostatic hyperplasia without lower urinary tract symptoms Status: Acute (5) Hypertension ICD Codes: I10 - Essential (primary) hypertension Status: Acute Plan: Well controlled (Ashley Pal MD) Karen Ch Nov 25, 2017 09:53 Ashley Pal MD Nov 25, 2017 21:58
--- NOTE | 2017-11-25 10:02 | HHI.IDPN ---
Subjective Subjective Remarks Patient is an 82-year-old male presented to the hospital for evaluation of hematuria. Patient has known BPH, and last year around the same time he was admitted for hematuria and suprapubic pain. He underwent cystoscopy and evacuation of clots, fulguration of the bleeding site within the prostatic urethra, and a Hernández catheter was removed. He followed up with the urologist after about 4 days, and apparently has not had any problem with hematuria up until this admission. Urology was consulted. Patient had continuous bladder irrigation, and his bleeding was not being controlled, so he underwent cystoscopy and fulguration of the prostatic bleeding. Since then he's had problem with persistent hematuria. His hemoglobin had dropped requiring blood transfusion. On November 13 he complained of chest pain, and EKGs changes showed an acute UT. Cardiac catheter was done. Patient also has had problem with VT, and that seems to be under control with medications. On November 29 start having problem with increasing oxygen requirement. His chest x-ray has shown no bilateral infiltrates with effusions. He has been afebrile. He states he still has some shortness of breath but not worse. He is on nasal O2. His hemodynamics are okay. Today his white count went up to 20,000, an infectious disease consultation has been requested to evaluate the patient. Patient's hematuria has been under control and he has blood-tinged urine. However overnight he started having monica hematuria. His Hernández catheter was changed and a bigger size was placed. Bladder scan yesterday was 720, and he had a good urine output after replacement of the Hernández. As of this morning, patient has monica hematuria, and has low output. He is complaining of lower abdominal pain. There has been no diarrhea. He denies any cough or chest congestion. He denies chest pain. There is been no nausea or vomiting. He is swallowing okay. Patient has no central line. Patient has been on multiple antibiotics. He was on Cipro from November 10 2 November 16. He has been on Rocephin since November 17, and he got 1 dose of vancomycin yesterday. Infectious disease consultation has been requested to evaluate the patient. Notes reviewed D/W RN Temps ok BP ok Problems with worsening hematuria, passing clots, hernández had to be changed twice To get manula irrigation of his bladder Creatinine rising WBC down to normal CXR better Antibiotics Cefepime Diflucan Current Medications Medications (Trade) Dose Ordered Sig/Micheal Route Start Time Stop Time Status Last Admin (Narcan Inj) 0.4 mg UNSCH PRN IV PUSH 11/10/17 14:15 (Flomax) 0.4 mg DAILY PO 11/11/17 09:00 11/24/17 08:16 (Catapres) 0.1 mg Q6H PRN PO 11/10/17 18:15 11/11/17 20:52 Aminocaproic Acid 3000 mg/Sodium Chloride 3,012 ml @ 0 mls/hr UNSCH IRRIGATION 11/13/17 14:15 Future Hold 11/20/17 09:19 (NS Flush) 2 ml UNSCH PRN IV FLUSH 11/13/17 16:45 (NS Flush) 2 ml BID IV FLUSH 11/13/17 21:00 11/24/17 08:17 (Aspirin Chew) 162 mg DAILY PO 11/14/17 09:00 11/24/17 08:16 (Plavix) 75 mg DAILY PO 11/14/17 09:00 11/24/17 08:16 (Coreg) 3.125 mg BID PO 11/13/17 21:00 11/24/17 08:16 (Lipitor) 10 mg HS PO 11/13/17 21:00 11/23/17 20:38 (Zofran Inj) 4 mg Q6HR PRN IV PUSH 11/13/17 19:30 11/18/17 04:04 Aminocaproic Acid 1000 mg/Sodium Chloride 1,004 ml @ 0 mls/hr UNSCH IRRIGATION 11/14/17 17:00 Future Hold (Protonix Inj) 40 mg DAILY IV PUSH 11/17/17 09:00 11/24/17 08:17 (Miralax) 17 gm DAILY PO 11/17/17 11:00 11/24/17 08:17 Miscellaneous Information Patient in critical care unit? Ass... Q361D .XX 11/17/17 20:45 11/17/17 20:45 (Dilaudid Pf Inj) 0.5 mg Q4H PRN IV 11/17/17 21:15 11/22/17 17:58 (Dilaudid Pf Inj) 0.2 mg Q4H PRN IV PUSH 11/17/17 21:15 Acetaminophen 100 ml @ 400 mls/hr Q8HR PRN IV 11/17/17 21:15 (Albuterol Neb) 2.5 mg Q2HR NEB PRN NEB 11/17/17 21:15 11/18/17 01:46 (Lelia-Colace) 1 tab BID PO 11/18/17 09:00 11/24/17 08:16 (Lactulose Liq) 30 ml DAILY PO 11/18/17 09:00 11/24/17 08:16 (Melatonin) 5 mg HS PRN PO 11/18/17 20:00 (Cordarone) 400 mg Q12HR PO 11/19/17 17:00 11/25/17 17:00 11/24/17 08:16 (Cordarone) 200 mg Q12H PO 11/26/17 05:00 (Duoneb Neb) 1 ampule Q6HR NEB NEB 11/21/17 10:00 11/24/17 03:26 (NovoLOG SUPPLEMENTAL SCALE) 1 ACHS SLIDING SCALE SQ 11/21/17 12:00 11/21/17 21:00 (D50w (Vial) Inj) 50 ml UNSCH PRN IV PUSH 11/21/17 09:30 (Glucagon Inj) 1 mg UNSCH PRN OTHER 11/21/17 09:30 Cefepime HCl 1000 mg/Sodium Chloride 100 ml @ 200 mls/hr Q24H IV 11/21/17 10:00 11/23/17 08:17 (Diflucan) 100 mg DAILY PO 11/21/17 10:15 11/24/17 08:16 (Ditropan) 5 mg Q12H PRN PO 11/22/17 18:00 11/22/17 18:04 Sodium Chloride 1,000 ml @ 84 mls/hr [id number] IV 11/23/17 09:00 11/24/17 01:20 Past Medical History BPH Hypertension Previous episode of hematuria in 2017 Past Surgical History TURP 2006 Allergies: Coded Allergies: No Known Allergies (Verified Allergy, Unknown, 11/10/17) Objective . Vital Signs Date Time Temp Pulse Resp B/P (MAP) Pulse Ox O2 Delivery O2 Flow Rate FiO2 11/25/17 06:00 96 11/25/17 04:00 96.8 68 23 128/63 (84) 100 11/25/17 04:00 68 11/25/17 02:00 72 11/25/17 00:00 69 11/25/17 00:00 98.4 69 26 116/56 (76) 91 11/24/17 22:00 71 11/24/17 20:00 98.5 71 23 114/56 (75) 98 11/24/17 20:00 71 11/24/17 19:40 96 21 11/24/17 18:00 69 11/24/17 16:00 98.3 69 28 116/56 (76) 97 11/24/17 16:00 67 11/24/17 14:00 67 11/24/17 12:00 62 11/24/17 12:00 98.0 68 24 113/56 (75) 96 . Laboratory Tests Test 11/24/17 02:40 White Blood Count 10.4 TH/MM3 Red Blood Count 2.89 MIL/MM3 Hemoglobin 9.0 GM/DL Hematocrit 25.2 % Mean Corpuscular Volume 87.3 FL Mean Corpuscular Hemoglobin 31.1 PG Mean Corpuscular Hemoglobin Concent 35.6 % Red Cell Distribution Width 15.1 % Platelet Count 172 TH/MM3 Mean Platelet Volume 9.1 FL Neutrophils (%) (Auto) 77.5 % Lymphocytes (%) (Auto) 12.7 % Monocytes (%) (Auto) 7.3 % Eosinophils (%) (Auto) 2.4 % Basophils (%) (Auto) 0.1 % Neutrophils # (Auto) 8.1 TH/MM3 Lymphocytes # (Auto) 1.3 TH/MM3 Monocytes # (Auto) 0.8 TH/MM3 Eosinophils # (Auto) 0.2 TH/MM3 Basophils # (Auto) 0.0 TH/MM3 CBC Comment DIFF FINAL Differential Comment Laboratory Tests Test 11/24/17 02:40 Blood Urea Nitrogen 61 MG/DL Creatinine 5.44 MG/DL Random Glucose 84 MG/DL Total Protein 5.0 GM/DL Calcium Level 7.0 MG/DL Sodium Level 141 MEQ/L Potassium Level 3.9 MEQ/L Chloride Level 104 MEQ/L Carbon Dioxide Level 22.0 MEQ/L Anion Gap 15 MEQ/L Estimat Glomerular Filtration Rate 10 ML/MIN Protein Corrected Calcium 8.1 MG/DL Imaging Last Impressions Chest X-Ray 11/22/17 0600 Signed Impressions: Service Date/Time: Wednesday, November 22, 2017 03:35 - CONCLUSION: No significant change. Persistent patchy bilateral airspace opacities. Eduin Landa MD Chest CT 11/20/17 0000 Signed Impressions: Service Date/Time: Monday, November 20, 2017 22:03 - CONCLUSION: Diffuse confluent airspace opacities throughout both lungs obscuring portions of the right middle lobe. There is associated large bilateral pleural effusions. Jesus Martinez MD Abdomen/Pelvis CT 11/19/17 0819 Signed Impressions: Service Date/Time: November 09:06 - CONCLUSION: 1. The bowel gas pattern remains within normal limits. No mechanical obstruction. 2. There is a right inguinal hernia containing loops of small and large bowel without obstruction. 3. There is a Hernández catheter in urinary bladder. However, the balloon on the Hernández catheter appears to be inflated within the prostatic urethra. This may need to be adjusted. 4. There continues to be mixed density within the urinary bladder as well as air. This is not significantly changed compared to the prior exam. 5. Diffuse enlargement of the prostate gland. 6. New bilateral pleural effusions as well as bibasilar infiltrates. Amador Leiva MD Abdomen X-Ray 11/18/17 0000 Signed Impressions: Service Date/Time: Saturday, November 18, 2017 16:18 - CONCLUSION: Unchanged bowel gas pattern. Jesus Deal Jr., MD Physical Exam GENERAL: awake and alert, not in respiratory distress. SKIN: Cold and dry. No generalized rash, pale HEAD: Atraumatic. Normocephalic. No temporal wasting, or tenderness. EYES: Pale conjunctiva. No petechia or hemorrhage. Pupils equal, round and reactive to light. No scleral icterus. No injection or drainage. EARS, NOSE AND THROAT: Nose without bleeding or purulent nasal discharge. No sinus tenderness. Dry oral mucosa. NECK: Trachea midline. Supple and not tender, no meningeal signs CARDIOVASCULAR: Regular rate and rhythm. No murmurs, rubs or gallops heard RESPIRATORY: Coarse breath sounds bilaterally. Decreased at the bases. ABDOMEN: Soft, nondistended. Bowel sounds present and normoactive. Tender in suprapubic region, no guarding : Hernández in place , bloody EXTREMITIES: No clubbing, cyanosis, or edema. No calf tenderness. NEUROLOGICAL: Awake and alert. Cranial nerves grossly intact. Motor grossly within normal limits. PSYCHIATRIC: Normal affect, calm and cooperative. LINE: No evidence of infection Assessment & Plan Remarks IMPRESSION Leukocytosis most likely reactive due to urinary retention from obstruction related to blood clots, hematuria - resolved Bilateral pulmonary infiltrates due to pulmonary edema - no clinical evidence of PNA, no cough or congestion, no fever BPH, with persistent gross hematuria Anemia due to blood loss from hematuria Acute rise in creatinine, etiology? - patient got only one dose of Vanco 11/20 RECOMMENDATION CBC stat He is off Abx Urology following Monitor progress D/W Fabiola Davila MD Nov 25, 2017 10:02
[2017-11-25 11:17] LABS: AUTOMATED NEUTROPHIL # 15.2 TH/MM3 (1.8-7.7); BASOPHIL % 0.2 % (0.0-2.0); EOSINOPHIL # 0.1 TH/MM3 (0-0.4); EOSINOPHIL % 0.7 % (0.0-4.0); HEMATOCRIT 23.4 % (39.0-51.0); HEMOGLOBIN 7.6 GM/DL (13.0-17.0); LYMPH % 7.4 % (9.0-44.0); LYMPHOCYTE # 1.3 TH/MM3 (1.0-4.8); MEAN CELL VOLUME 90.4 FL (80.0-100.0); MEAN CORPUSCULAR HEMOGLOBIN 29.5 PG (27.0-34.0); MEAN CORPUSCULAR HGB CONC 32.6 % (32.0-36.0); MEAN PLATELET VOLUME 9.4 FL (7.0-11.0); MONO % 5.3 % (0.0-8.0); MONOCYTE # 0.9 TH/MM3 (0-0.9); NEUT % 86.4 % (16.0-70.0); PLATELET COUNT 313 TH/MM3 (150-450); RED BLOOD COUNT 2.59 MIL/MM3 (4.50-5.90); RED CELL DISTRIBUTION WIDTH 15.5 % (11.6-17.2); WHITE BLOOD COUNT 17.6 TH/MM3 (4.0-11.0)
[2017-11-25 11:35] LABS: ALBUMIN 1.8 GM/DL (3.4-5.0); BICARBONATE 21.8 MEQ/L (21.0-32.0); CALCIUM 7.1 MG/DL (8.5-10.1); CALCIUM-PROTEIN CORRECTED 8.1 MG/DL (8.5-10.1); CREATININE 5.27 MG/DL (0.60-1.30); TOTAL BILIRUBIN ADULT 0.5 MG/DL (0.2-1.0); TOTAL PROTEIN 5.2 GM/DL (6.4-8.2)
[2017-11-25] MEDS ORDERED: ROCURONIUM INJ 50 MG/5 ML SYRINGE IV PUSH ONE (12:00)
[2017-11-25] MEDS ORDERED: LACTATED RINGER'S 1000 ML INJ 2,000 ML IV ONE (12:00)
[2017-11-25] MEDS ORDERED: PHENYLEPHRINE HCL 10 MG/ML VIAL IV ONE (12:00)
[2017-11-25] MEDS ORDERED: ePHEDrine/NS 25 MG/5 ML SYRINGE IV ONE (12:00)
[2017-11-25] MEDS ORDERED: PHENYLEPH/NS 1000 MCG/10 ML SYR IV ONE (12:00)
[2017-11-25] MEDS ORDERED: LIDOCAINE HCL 1% PF 5 ML SYRINGE OTHER ONE (12:00)
[2017-11-25] MEDS ORDERED: ONDANSETRON HCL 4 MG/2 ML VIAL IV PUSH ONE (12:00)
[2017-11-25] MEDS ORDERED: PROPOFOL 200 MG/20 ML AMP IV ONE (12:00)
[2017-11-25] MEDS ORDERED: ceFAZolin INJ 1,000 MG VIAL IV ONE ×2 (12:00→19:02)
--- NOTE | 2017-11-25 12:18 | RADRPT ---
EXAM DATE/TIME: 11/25/2017 11:39 [facility] COMPARISON: ABDOMEN KUB ONLY, November 18, 2017, 16:18. INDICATIONS : Nausea. Hematuria. Obstructive uropathy the right. MEDICAL HISTORY : Hypertension. Benign prostatic hyperplasia (BPH). SURGICAL HISTORY : Prostatectomy. ENCOUNTER: Initial ACUITY: 1 day PAIN SCORE: 5/10 LOCATION: Bilateral abdomen FINDINGS: Gas is seen diffusely throughout loops of small bowel measuring up to 3 diameter. Moderate amount of stool in right colon. No calcifications project over either kidney or in the flank. No organomegaly. CONCLUSION: 1. No calcified stones seen. 2. Nonspecific abdominal bowel gas pattern with diffuse gas containing minimally distended loops of s mall bowel. Jesus Martinez MD on November 25, 2017 at 12:05 Board Certified Radiologist. This report was verified electronically.
--- NOTE | 2017-11-25 15:24 | HHI.PR ---
Subjective Patient symptoms today Complains of suprapubic pressure and spasms Problems with CBI functioning well during the night A two way 24 Upper Sorbian Ma was placed early this morning with frequent irrigations performed Objective Vital Signs Vital Signs Date Time Temp Pulse Resp B/P (MAP) Pulse Ox O2 Delivery O2 Flow Rate FiO2 11/25/17 12:01 98.6 68 16 106/54 (71) 11/25/17 12:00 66 11/25/17 12:00 69 17 11/25/17 11:01 Nasal Cannula 3.00 11/25/17 10:00 89 11/25/17 08:00 98.7 79 14 84/49 (61) 98 11/25/17 08:00 98 11/25/17 06:00 96 11/25/17 04:00 96.8 68 23 128/63 (84) 100 11/25/17 04:00 68 11/25/17 02:00 72 11/25/17 00:00 69 11/25/17 00:00 98.4 69 26 116/56 (76) 91 11/24/17 22:00 71 11/24/17 20:00 98.5 71 23 114/56 (75) 98 11/24/17 20:00 71 11/24/17 19:40 96 21 11/24/17 18:00 69 11/24/17 16:00 98.3 69 28 116/56 (76) 97 11/24/17 16:00 67 Intake & Output 11/25/17 11/25/17 07:00 19:00 Intake Total 1240 ml Balance 1240 ml Intake Oral 240 ml IV Total 1000 ml # Bowel Movements 0 Result Diagram: 11/25/17 1020 11/25/17 1020 Imaging Last 24 hours Impressions Abdomen X-Ray 11/25/17 0000 Signed Impressions: Service Date/Time: Saturday, November 25, 2017 11:39 - CONCLUSION: 1. No calcified stones seen. 2. Nonspecific abdominal bowel gas pattern with diffuse gas containing minimally distended loops of small bowel. Jesus Martinez MD Objective Remarks Ma catheter draining grossly bloody urine Bladder moderately distended Medications and IVs Current Medications Medications (Trade) Dose Ordered Sig/Micheal Route Start Time Stop Time Status Last Admin (Narcan Inj) 0.4 mg UNSCH PRN IV PUSH 11/10/17 14:15 (Flomax) 0.4 mg DAILY PO 11/11/17 09:00 11/25/17 09:00 (Catapres) 0.1 mg Q6H PRN PO 11/10/17 18:15 11/11/17 20:52 Aminocaproic Acid 3000 mg/Sodium Chloride 3,012 ml @ 0 mls/hr UNSCH IRRIGATION 11/13/17 14:15 Future Hold 11/20/17 09:19 (NS Flush) 2 ml UNSCH PRN IV FLUSH 11/13/17 16:45 (NS Flush) 2 ml BID IV FLUSH 11/13/17 21:00 11/25/17 09:36 (Aspirin Chew) 162 mg DAILY PO 11/14/17 09:00 11/25/17 09:39 (Plavix) 75 mg DAILY PO 11/14/17 09:00 11/25/17 09:37 (Coreg) 3.125 mg BID PO 11/13/17 21:00 11/25/17 09:38 (Lipitor) 10 mg HS PO 11/13/17 21:00 11/24/17 20:57 (Zofran Inj) 4 mg Q6HR PRN IV PUSH 11/13/17 19:30 11/25/17 08:07 Aminocaproic Acid 1000 mg/Sodium Chloride 1,004 ml @ 0 mls/hr UNSCH IRRIGATION 11/14/17 17:00 Future Hold (Protonix Inj) 40 mg DAILY IV PUSH 11/17/17 09:00 11/25/17 09:37 (Miralax) 17 gm DAILY PO 11/17/17 11:00 11/24/17 08:17 Miscellaneous Information Patient in critical care unit? Ass... Q361D .XX 11/17/17 20:45 11/17/17 20:45 (Dilaudid Pf Inj) 0.5 mg Q4H PRN IV 11/17/17 21:15 11/25/17 09:43 (Dilaudid Pf Inj) 0.2 mg Q4H PRN IV PUSH 11/17/17 21:15 Acetaminophen 100 ml @ 400 mls/hr Q8HR PRN IV 11/17/17 21:15 (Albuterol Neb) 2.5 mg Q2HR NEB PRN NEB 11/17/17 21:15 11/18/17 01:46 (Lelia-Colace) 1 tab BID PO 11/18/17 09:00 11/24/17 20:57 (Lactulose Liq) 30 ml DAILY PO 11/18/17 09:00 11/24/17 08:16 (Melatonin) 5 mg HS PRN PO 11/18/17 20:00 (Cordarone) 400 mg Q12HR PO 11/19/17 17:00 11/25/17 17:00 11/25/17 09:38 (Cordarone) 200 mg Q12H PO 11/26/17 05:00 (NovoLOG SUPPLEMENTAL SCALE) 1 ACHS SLIDING SCALE SQ 11/21/17 12:00 11/25/17 08:00 (D50w (Vial) Inj) 50 ml UNSCH PRN IV PUSH 11/21/17 09:30 (Glucagon Inj) 1 mg UNSCH PRN OTHER 11/21/17 09:30 (Ditropan) 5 mg Q12H PRN PO 11/22/17 18:00 11/22/17 18:04 Sodium Chloride 1,000 ml @ 84 mls/hr [id number] IV 11/23/17 09:00 11/25/17 10:24 Assessment and Plan Assessment and Plan -Discussed with patient's family his current clinical status and hematuria with large bladder clot noted within the bladder -At this time, the patient's family is very hesitant to under go any further surgical intervention and they do understand the large bladder clot will not be able to be removed with surgery -In addition, given his recent NE and cardiac stents, Plavix is not able to be held -Therefore his current clinical situation may not improve, even with intervention to remove the large bladder clot as he may continue to bleed -Patient will need urgent/emergent cysto and clot evacuation if the catheter does not drain and his bladder becomes distended and painful. Family does understand this and would like to leave him as is for as long as possible -Alternatively, bilateral nephrostomy tubes may be placed to divert urine from the bladder. This may not be a good option given the Plavix -No surgical intervention at this time. Continue management with CBI and hand irrigation as needed -Will refer care back to [facility], Dr. Lee, tomorrow am 11/23/2017 Discussed ongoing management with Amicar CBI. Discussed that it may take up to 2 weeks for the urine to totally clear as patient is presently on anticoagulation therapy. We will irrigate CBI catheter as needed Once CBI discontinued, patient will require an indwelling Ma catheter for an extended period of time to allow any residual clot material to dissolve. 11/25/2017 Persistent gross hematuria with bladder distention despite catheter change and irrigation We will keep patient n.p.o. We will bring patient to the cystoscopy suite for cystoscopy, clot evacuation and fulguration of any ongoing bleeding sites Risks and benefits discussed with patient and family Hernando Roberts MD Nov 25, 2017 15:24
[2017-11-25] MEDS ORDERED: VASOPRESSIN 20 UNITS/ML VIAL ONE (16:03)
[2017-11-25] MEDS ORDERED: SUGAMMADEX SODIUM 200 MG/2 ML VIAL IV PUSH ONE (17:00)
[2017-11-25] MEDS ORDERED: PHENYLEPHRINE HCL 10 MG/ML VIAL ONE (18:12)
--- NOTE | 2017-11-25 19:04 | PD.OP ---
Operative Report Date of Surgery: Nov 25, 2017 Preoperative Diagnosis: (1) BPH (benign prostatic hyperplasia) (2) Gross hematuria Postoperative Diagnosis: (1) BPH (benign prostatic hyperplasia) (2) Gross hematuria Procedure: Cystoscopy, evacuation of clots and fulguration of bladder neck region Anesthesia: General Surgeon: Hernando Roberts Engineer Automated Equipment(s): None Operation and Findings: Indication for procedures: Case of a pleasant 82-year-old gentleman with BPH and persistent gross hematuria with poorly functioning CBI who presents now for cystoscopy with clot evacuation and fulguration of bleeding sites. Operative procedure in detail: Patient was brought to the operating room suite and placed supine on the cystoscopy table. He was then placed under general anesthesia. He was then repositioned in the dorsolithotomy position and prepped and draped in normal sterile fashion. After appropriate timeout was undertaken I proceeded with cystoscopic evaluation utilizing the rigid cystoscope with the 22 Barbadian sheath and a 30 lens. The urethra was patent without stricture formation, the prostatic urethra was obstructing with apposition of the lateral lobes. Further passive cystoscope within the urinary bladder revealed a bladder full of organized clots. I attempted to irrigate the clots out utilizing the cystoscope sheath with the Elic evacuator. If you small size clots were recovered however the majority of clots cannot be evacuated this way. I exchanged the cystoscope for the resectoscope with the 26 Barbadian lumen and subsequently was able to evacuate more of the clots. I subsequently needed to utilize the 26 Barb[place] Cutting Loop to break up the organized clot and extract pieces of the clot. It was tedious but ultimately I was able to evacuate all of the organized clot from the bladder. Once this was accomplished I carefully inspected for active bleeding and there was a couple of sites at the bladder neck region which were oozing blood. There were also multiple dilated veins adjacent to this area. Using coagulation current, I fulgurated the bleeding sites and potential bleeding sites at the bladder neck region. I then placed a 22 Barbadian three-way Ma catheter and resumed continuous bladder irrigation. Normal saline was used for the irrigant. The patient was softly transferred to the PACU in satisfactory condition having tolerated the procedures well. Hernando Roberts MD Nov 25, 2017 19:04
[2017-11-25] MEDS ORDERED: DO NOT ADM ANY ANTICOAGULANT DRUGS PRN (19:11)
[2017-11-25] MEDS: ATORVASTATIN 10 MG TAB PO SCH (21:00)
[2017-11-26] VITALS (14 sets, daily range): BP systolic 97–118; BP diastolic 52–60; PULSE 62–79; RESP 12–29; TEMP 97.7–98.4; O2SAT 74–100
[2017-11-26] MEDS: SODIUM CHLOR 0.9% 1000 ML INJ 1,000 ML IV SCH ×2 (00:53→10:29)
[2017-11-26] MEDS: AMIODARONE 200 MG TAB PO SCH ×2 (05:00→17:44)
[2017-11-26 05:51] LABS: AUTOMATED NEUTROPHIL # 13.4 TH/MM3 (1.8-7.7); BASOPHIL % 0.3 % (0.0-2.0); EOSINOPHIL # 0.1 TH/MM3 (0-0.4); EOSINOPHIL % 0.7 % (0.0-4.0); HEMATOCRIT 24.8 % (39.0-51.0); HEMOGLOBIN 8.3 GM/DL (13.0-17.0); LYMPH % 8.9 % (9.0-44.0); LYMPHOCYTE # 1.4 TH/MM3 (1.0-4.8); MEAN CELL VOLUME 87.2 FL (80.0-100.0); MEAN CORPUSCULAR HEMOGLOBIN 29.3 PG (27.0-34.0); MEAN CORPUSCULAR HGB CONC 33.5 % (32.0-36.0); MEAN PLATELET VOLUME 8.9 FL (7.0-11.0); MONO % 5.6 % (0.0-8.0); MONOCYTE # 0.9 TH/MM3 (0-0.9); NEUT % 84.5 % (16.0-70.0); PLATELET COUNT 188 TH/MM3 (150-450); RED BLOOD COUNT 2.84 MIL/MM3 (4.50-5.90); RED CELL DISTRIBUTION WIDTH 14.8 % (11.6-17.2); WHITE BLOOD COUNT 15.9 TH/MM3 (4.0-11.0)
--- NOTE | 2017-11-26 06:22 | RADRPT ---
EXAM DATE/TIME: 11/26/2017 05:36 [facility] COMPARISON: CHEST SINGLE AP, November 23, 2017, 3:08. INDICATIONS : Shortness of breath, possible pulmonary disease. MEDICAL HISTORY : Hypertension. BPH SURGICAL HISTORY : Prostatectomy. ENCOUNTER: Subsequent ACUITY: 1 week PAIN SCORE: 0/10 LOCATION: Bilateral chest FINDINGS: Patchy areas of consolidation throughout both lungs again seen. There is been some progression within the left upper lobe and right lower lobe components. No effusions. Heart is at the upper limits of n ormal in terms of size. CONCLUSION: Some progression in the bilateral pulmonary infiltrates. Jesus Deal Jr., MD on November 26, 2017 at 6:20 Board Certified Radiologist. This report was verified electronically.
[2017-11-26 06:34] LABS: ALBUMIN 1.5 GM/DL (3.4-5.0); BICARBONATE 23.5 MEQ/L (21.0-32.0); CALCIUM 6.5 MG/DL (8.5-10.1); CALCIUM-PROTEIN CORRECTED 7.9 MG/DL (8.5-10.1); CREATININE 4.81 MG/DL (0.60-1.30); PHOSPHORUS 4.8 MG/DL (2.5-4.9); TOTAL BILIRUBIN ADULT 0.3 MG/DL (0.2-1.0); TOTAL PROTEIN 4.4 GM/DL (6.4-8.2)
[2017-11-26] MEDS: INSULIN ASPART SUPPLEMENTAL SCALE SQ SCH ×4 (08:00→20:05)
[2017-11-26] MEDS: POLYETHYLENE GLYCOL 17 GM PKG PO SCH (09:00)
[2017-11-26] MEDS: SODIUM CHLORIDE 0.9% FLUSH 10 ML FLUSH IV FLUSH SCH ×2 (09:00→19:44)
[2017-11-26] MEDS: LACTULOSE SYRUP 20 GM/30 ML CUP PO SCH (09:00)
[2017-11-26] MEDS: CLOPIDOGREL 75 MG TAB PO SCH (09:20)
[2017-11-26] MEDS: FINASTERIDE 5 MG TAB PO SCH (09:20)
[2017-11-26] MEDS: DOCUSATE SODIUM 50 MG/SENNA 8.6 MG TAB PO SCH ×2 (09:20→19:43)
[2017-11-26] MEDS: TAMSULOSIN HCL 0.4 MG CAP PO SCH (09:20)
[2017-11-26] MEDS: CARVEDILOL 3.125 MG TAB PO SCH ×2 (09:20→19:43)
[2017-11-26] MEDS: ASPIRIN 81 MG CHEW TAB PO SCH (09:21)
[2017-11-26] MEDS: PANTOPRAZOLE SODIUM 40 MG VIAL IV PUSH SCH (09:21)
[2017-11-26] MEDS: HYDROmorphone HCL PF 2 MG/ML VIAL IV PRN (09:40)
--- NOTE | 2017-11-26 10:07 | HHI.NPPN ---
Subjective Renal Problems: Hematuria Renal Failure: Acute History of Present Illness This is an 82-year-old male with a past medical history of hypertension, benign prostatic hypertrophy, history of TURP in 2006, possible history of mild chronic kidney disease with creatinine on presentation of 1.3 and remained in the range of 1.2 to 1.3 most of the time. He presented to the hospital and was admitted on 11/10 because of hematuria. Nephrology was called to see the patient because of elevated BUN and creatinine. The patient has been followed by Urology and the impression was the patient has possible prostatic bleeding and continue the Hernández catheter and irrigation (this was on admission), and continue the Flomax. It was recently found on the ultrasound of the kidneys, that he has intraluminal mass versus ___ _ in the urinary bladder. The creatinine has been gradually going up, and now it is 4.5. The patient has bloody urine and is to continue the bladder irrigation. He has nausea or vomiting, no history of diarrhea. The patient has all the cultures negative, and currently he is getting Diflucan and cefepime. Infectious Disease is following. Additional Remarks Patient is alert. Son at bedside. Indwelling Hernández catheter intact with irrigation. Urine hematuria improving. (Karen Ch) Review of Systems Respiratory Respiratory Remarks Denies any SOB (Karen Ch) Cardiovascular Cardiac Remarks denies any CP (Karen Ch) Genitourinary Remarks suprapubic discomfort (Karen Ch) Objective Data Data Vital Signs Date Time Temp Pulse Resp B/P (MAP) Pulse Ox O2 Delivery O2 Flow Rate FiO2 11/26/17 08:00 66 11/26/17 08:00 98.0 66 29 97/52 (67) 100 11/26/17 06:00 66 11/26/17 04:00 98.4 74 20 106/52 (70) 100 11/26/17 04:00 67 11/26/17 02:00 68 11/26/17 00:00 71 11/26/17 00:00 98.1 71 26 113/55 (74) 100 11/25/17 22:25 99 Nasal Cannula 3.00 11/25/17 22:00 71 11/25/17 20:00 98.8 74 18 119/60 (79) 100 11/25/17 20:00 74 11/25/17 19:30 98.1 76 20 121/56 (77) 100 11/25/17 19:15 98.1 76 20 128/50 (76) 100 Nasal Cannula 2 11/25/17 19:07 96.5 79 22 109/53 (71) 100 11/25/17 14:00 97.7 68 14 116/55 (75) 100 11/25/17 12:01 98.6 68 16 106/54 (71) 11/25/17 12:00 66 11/25/17 12:00 69 17 11/25/17 11:01 Nasal Cannula 3.00 (Karen Ch) -: 11/26/17 0315 11/26/17 0315 Tubes & Lines: Hernández (Karen Ch) Physical Exam General Appearance: No Acute Distress (Karen Ch) Pulmonary Resp Exam: Breath Sounds Equal, No Distress (Karen Ch) Cardiology CV Exam: Regular (Karen Ch) Gastrointestinal/Abdomen GI Exam: Bowel Sounds Present (Karen Ch) Genitourinary Exam: Flank Non-Tender (Karen Ch) Integumentary Skin Exam: Warm, Dry (Karen Ch) Extremeties Extremities Exam: No Edema (Karen Ch) Neurologic Neuro Exam: Alert, Awake (Karen Ch) Psychiatric Psych Exam: Appropriate Responses (Karen Ch) Assessment/Plan Discussed Condition With: Patient Assessment Summary: KIARA/Acute Renal Failure Electrolyte Assessment: Hypocalcemia Problem List: (1) KIARA (acute kidney injury) ICD Codes: N17.9 - Acute kidney failure, unspecified Plan: Acute kidney injury possibly related to obstruction or period of hypotension. 11/22: Renal ultrasound. Intraluminal mass versus debris within the urinary bladder completely encasing the Hernández catheter. Mass versus debris within the urinary bladder completely encasing the Hernández catheter. Simple right renal cyst. No evidence of hydronephrosis Urology is consulted. Renal function improved with a creatinine of 4.81 from 5.27 Good urinary output. Denies any SOB or nausea. No Edema. Potassium WNL S/p Cystoscopy 11/25 Plan Continue continuous bladder irrigation Will continue to monitor renal function and UOP Avoid nephrotoxins Continue gently hydration (2) Gross hematuria ICD Codes: R31.0 - Gross hematuria Status: Acute Plan: Indwelling hernández catheter. Urology consulted s/p Cystoscopy 11/25 (3) Obstructive uropathy ICD Codes: N13.9 - Obstructive and reflux uropathy, unspecified Status: Acute (4) BPH (benign prostatic hyperplasia) ICD Codes: N40.0 - Benign prostatic hyperplasia without lower urinary tract symptoms Status: Acute (5) Hypertension ICD Codes: I10 - Essential (primary) hypertension Status: Acute Plan: Well controlled (Karen Ch) Problem List: (1) KIARA (acute kidney injury) ICD Codes: N17.9 - Acute kidney failure, unspecified Plan: Acute kidney injury possibly related to obstruction or period of hypotension. 11/22: Renal ultrasound. Intraluminal mass versus debris within the urinary bladder completely encasing the Hernández catheter. Mass versus debris within the urinary bladder completely encasing the Hernández catheter. Simple right renal cyst. No evidence of hydronephrosis Urology is following the patient. Renal function improved with a creatinine of 4.81 from 5.27 Good urinary output. Denies any SOB or nausea. No Edema. Potassium WNL S/p Cystoscopy 11/25 with clot removal and fulguration of bleeding sites. Plan Continue continuous bladder irrigation Will continue to monitor renal function and UOP Avoid nephrotoxins Continue gently hydration. D/W the daughter at beds side. (2) Gross hematuria ICD Codes: R31.0 - Gross hematuria Status: Acute Plan: Indwelling hernández catheter. Urology consulted s/p Cystoscopy 11/25 (3) Obstructive uropathy ICD Codes: N13.9 - Obstructive and reflux uropathy, unspecified Status: Acute (4) BPH (benign prostatic hyperplasia) ICD Codes: N40.0 - Benign prostatic hyperplasia without lower urinary tract symptoms Status: Acute (5) Hypertension ICD Codes: I10 - Essential (primary) hypertension Status: Acute Plan: Well controlled (Ashley Pal MD) Karen Ch Nov 26, 2017 10:07 Ashley Pal MD Nov 26, 2017 13:58
[2017-11-26] MEDS ORDERED: ACETAMINOPHEN 1000 MG/100 ML 100 ML IV PRN (11:30)
--- NOTE | 2017-11-26 11:56 | HHI.CCPN ---
Subjective Remarks/Hospital Course 11/13: Patient is an 82-year-old male with past medical history of BPH, tobacco abuse who presented 11/12/2017 with dysuria, hematuria and urinary retention. Patient was admitted to the hospitalist service and underwent cystoscopy with fulguration by Dr. Lee. Was also placed on continuous bladder irrigation. Patient developed chest pain today a.m. EKG showed significant anterolateral ST elevation troponin bumped to 6.5 emergently taken to cardiac catheterization by Dr. Kelley. Received PCI, LAD stent,. Was loaded with 600 mg Plavix and was started on Aggrastat. Post stenting went to [facility] developed hypotension and was moved to the CVICU. Initially seen by Dr. Ryan patient had gross hematuria so O negative blood 2 units were ordered stat. I evaluated the patient in CVICU. He is persistently hypotensive receiving first 2 units of blood. Started on 1 mcg/min Levophed. Remains borderline hypotensive. Patient has significant gross hematuria, and is on CBI. He is anxious and complains about 9 out of 10 chest pain, I am starting on nitro drip. Patient may need IABP pain not resolved with nitro and Dilaudid/ Morphine. I have discussed with Dr. Kelley. 11/14: Resting comfortably in bed. Received 3 units PRBCs yesterday. Chest pain resolved currently. CBI with Amicar ongoing. Minimal pink tinged CBI fluid noted. 11/15: Resting comfortably. Denies SOB or abd pain. No chest pain currently. Reconsult 11/17: Patient 10 minute episode of reperfusion rhythm/V. tach. Potassium is 3.2. Magnesium 1.8 this a.m. Given 2 g mag sulfate IV 1 now. We placed on amiodarone drip. Discussed with Dr. Kelley will transfer to [facility]. 11/18: Late entry note. Patient was noted to be hypokalemic this a.m. repletion provided. Patient denies any chest pain. Patient remains in sinus rhythm, amiodarone infusion continued. Family at bedside requesting possible transfer to another facility secondary to disappointment and care being provided. Case management consult initiated. EPS consulted, Dr. Jackson. Discussed with , family's request and plan of treatment. 11/19: Oxygen requirements increased overnight, now on partial rebreather ,chest x -ray showed new bilateral pleural effusions. IV fluids discontinued. Lasix 40 mg IV given 1 dose. The patient denies pain resting comfortably. Amiodarone continues IV infusion, plans to transition to PO today, discussed with Dr. Jackson. 11/20: Chest x-ray worsening, aggressive diuresis continued the patient received Lasix 80 mg yesterday. Patient continues on partial nonrebreather mask O2 sat 95% CT chest pending. Persistent leukocytosis noted ID has been consulted. Empiric antibiotics have been initiated. Patient had BM last evening, diet has been advanced to clear liquid per GI. 11/21: Afebrile. Patient denies chest pain. Slight improvement in chest x-ray, FiO2 requirement slightly decreased patient currently on O2 at 4 L nasal cannula. Patient continues to have bilateral pleural effusions and pulmonary edema, with slight improvement. Overnight the patient was noted to have urinary obstruction, Dr. Lee notified, 3-way Hernández change from 22 [place] to 24F, patient was noted to have significant pain, patient received belladonna, Dilaudid and bladder was irrigated concurrently with a noted drop in blood pressure with a systolic in the 70s. Diuresis (Lasix) held for 24 hours , secondary to increasing creatinine to 2.0, possibly due to urinary obstruction last evening versus diuretic therapy. Noted resolution without medical intervention. Gross hematuria was again noted after placement of the new 3-way Hernández. Hemoglobin at midnight was noted to be 8.3, no transfusion was provided, hemoglobin this a.m. 7.7, patient to be transfused 2 units packed red blood cells,with posttransfusion CBC. Patient was seen by ID, antibiotics per ID recommendations. Provided extensive discussion with family, regarding overnight events and plans for treatment today. 11/21: 1300- Pt's MAP ranging 55-60. Risk and benefits discussed with family consent obtained from POA plan for central line placement and initiate Levophed infusion. 11/22: Norepinephrine discontinued at 1900 last evening. The patient remains hemodynamically stable. A.m labs reveal elevated creatinine, concern for obstruction, renal ultrasound performed, Dr. Shi notified of results.Renal US revealed mass versus debris obstructing lumen of Hernández Patient denies pain, CBI continued. Hemoglobin 8.21 unit of packed red blood cells being transfused to maintain HGB 9.0.Multiple repeated flushing and irrigation of hernández. Repeat BMP pending. 11/23 No events overnight. Awake and alert. Renal function is worsening with Cr: 5.21 from 4.59, 11/24 Patient is lying in bed in NAD. Afebrile. Cr: 5.44. On CBI per Urology. 11/25: C/o nausea after receiving pain meds. Continues to have hematuria on CBI. CMP is pending today. No chest pain 11/26: s/p Cystoscopy, evacuation of clots and fulguration of bladder neck region. Hematuria is clearing, creat also slightly improved to 4.8 today. No indication for hemodialysis urine output is adequate Objective Vital Signs Date Time Temp Pulse Resp B/P (MAP) Pulse Ox O2 Delivery O2 Flow Rate FiO2 11/26/17 10:10 14 11/26/17 10:00 75 11/26/17 08:00 98.0 97/52 (67) 100 11/25/17 22:25 Nasal Cannula 3.00 11/24/17 19:40 21 Intake and Output 11/26/17 11/26/17 11/27/17 08:00 16:00 00:00 Output Total 3500 ml Balance -3500 ml Result Diagram: 11/26/17 0315 11/26/17 0315 Other Results Laboratory Tests Test 11/25/17 18:25 Blood Gas Puncture Site DRAWN IN OR Blood Gas Patient Temperature 98.6 Blood Gas HCO3 20 mmol/L (22-26) Blood Gas Base Excess -4.4 mmol/L (-2-2) Blood Gas Oxygen Saturation 96 % (90-100) Arterial Blood pH 7.38 (7.380-7.420) Arterial Blood Partial Pressure CO2 35 mmHg (38-42) Arterial Blood Partial Pressure O2 146 mmHg (61-120) Arterial Blood Oxygen Content 17.9 Vol % (12.0-20.0) Arterial Blood Carboxyhemoglobin 1.2 % (0-4) Arterial Blood Methemoglobin 1.3 % (0-2) Blood Gas Hemoglobin 13.1 G/DL (12.0-16.0) Oxygen Delivery Device VENTILATOR Blood Gas Ventilator Setting OR Blood Gas Inspired Oxygen 60 % Imaging Last Impressions Chest X-Ray 11/23/17 0600 Signed Impressions: Service Date/Time: Thursday, November 23, 2017 03:08 - CONCLUSION: Some improvement in the bilateral patchy infiltrates. Jesus Deal Jr., MD Renal Ultrasound 11/22/17 0000 Signed Impressions: Service Date/Time: Wednesday, November 22, 2017 10:23 - CONCLUSION: 1. Intraluminal mass versus debris within the urinary bladder completely encasing the Hernández catheter. 2. Simple right renal cyst. 3. No evidence of hydronephrosis. Isaias Hanna MD Chest CT 11/20/17 0000 Signed Impressions: Service Date/Time: Monday, November 20, 2017 22:03 - CONCLUSION: Diffuse confluent airspace opacities throughout both lungs obscuring portions of the right middle lobe. There is associated large bilateral pleural effusions. Jesus Martinez MD Abdomen/Pelvis CT 11/19/17818 Signed Impressions: Service Date/Time: November 09:06 - CONCLUSION: 1. The bowel gas pattern remains within normal limits. No mechanical obstruction. 2. There is a right inguinal hernia containing loops of small and large bowel without obstruction. 3. There is a Hernández catheter in urinary bladder. However, the balloon on the Hernández catheter appears to be inflated within the prostatic urethra. This may need to be adjusted. 4. There continues to be mixed density within the urinary bladder as well as air. This is not significantly changed compared to the prior exam. 5. Diffuse enlargement of the prostate gland. 6. New bilateral pleural effusions as well as bibasilar infiltrates. Amador Leiva MD Abdomen X-Ray 11/18/17 0000 Signed Impressions: Service Date/Time: Saturday, November 18, 2017 16:18 - CONCLUSION: Unchanged bowel gas pattern. Jesus Deal Jr., MD Procedures Catheterization Objective Remarks GENERAL: Well-nourished, well-developed patient, lying in bed awake, c/o lower abdominal pain SKIN: Skin assessment warm/dry. HEAD: Normocephalic. EYES: Pupils equal and reactive.EOMI. NECK: Supple, trachea midline. + JVD CARDIOVASCULAR: Regular rate and rhythm S1, S2. No S4. Without murmurs, RESPIRATORY: Breath sounds equal bilaterally. Breath sounds diminished in bases. No accessory muscle use. GASTROINTESTINAL: Abdomen soft, nondistended. Right inguinal hernia : CBI ongoing with hematuria noted, hematuria appears to be clearing MUSCULOSKELETAL: No cyanosis, or edema. NEURO: Alert awake oriented. No obvious focal deficit. Moves extremities 4 Urinary Catheter: Yes Assessment to: Continue A/P Assessment and Plan NEURO/PSYCH: Bladder spasm/pain Hydromorphone 0.25 to 0.5 mg IV every 4 hours as needed pain, Zofran for nausea Melatonin 5 mg daily at bedtime when necessary for insomnia Oxybutynin PRN, IV Tylenol as needed for pain and fever RESP: Continue with oxygen keep sats >92% Incentive spirometry while awake Albuterol/ipratropium aerosols every 6 hours with albuterol aerosols every 2 hours as needed dyspnea CXR 11/23- some improvements in b/l pulm infiltrates CV: STEMI s/p LAD Stent V. tach resolved Elevated troponin Lactic acidosis- Cleared Monitor HR and BP keep MAP>65mmHg Continue aspirin 162 mg daily, clopidogrel 75 mg daily, Carvedilol 3.125 mg p.o. twice daily, Atorvastatin 10 mg p.o. daily, Amiodarone 200mg Q12 2-D echo with low LVEF 35-40%. Anterior lateral wall akinesia. Not on Feliciano- In due to renal failure 11/18 Consulted EPS-medical management secondary to the criticality of the patient , plan for possible Life Vest/defibrillator Dr. Del Rio discussed with Dr. Jackson GI: Elevated AST Hypoalbuminemia Right inguinal hernia Diverticulosis Constipation GI is following. CT abdomen/pelvis earlier this hospitalization revealed right inguinal hernia without signs of strangulation, hiatal hernia, diverticulosis without diverticulitis and BPH 11/19 CT abdomen and pelvis repeated-no change right inguinal hernia containing loops of small and large bowel no mechanical obstruction now new bilateral pleural effusions. BPH Pantoprazole for GI prophylaxis Bowel regimen On regular, renal diet : Gross hematuria Status post cystoscopy and fulguration BPH KIARA -Continuous bladder irrigation with Amicar per urology -s/p Cystoscopy, evacuation of clots and fulguration of bladder neck region 11/25 -Once CBI discontinued, patient will require an indwelling Hernández catheter for an extended period of time to allow any residual clot material to dissolve per Dr. Roberts. -Monitor renal function, I/O's, avoid nephrotoxins -Renal function improving, creat down to 4.81 today -Renal and Urology are following- continue NS@84ml/hr Continue tamsulosin 0.4 mg p.o. daily 11/22: Renal ultrasound. Intraluminal mass versus debris within the bladder completely encasing the Hernández, Simple right renal cyst. No evidence of hydronephrosis.Dr. Lee from Urology is following ID: Leukocytosis.. trending down Abx per ID ( On Cefepime, Diflucan ) monitor for signs of infections ( fever, WBC) HEME: Normocytic anemia Acute blood loss anemia -Status post 5 units PRBCs since admission -Monitor CBC -Transfuse to keep hemoglobin more than [address] Kelley's request. -Monitor CBC -Patient received 2 units packed red blood cells 11/21, 1 unit PRBCs 11/22 ENDO/FEN: Electrolyte derangement -Electrolyte replacement per protocol TSH normal PROPH: -Bilateral lower extremity SCDs. Chemical DVT prophylaxis is contraindicated at this time, organized clots flush from bladder. Continue SCDs LINES: -Utilize peripheral IVs Level 2 Consult hospitalist to assume care in am. transfer to [facility] with Tele Maurice Denny MD Nov 26, 2017 11:56
[2017-11-26] MEDS: ONDANSETRON HCL 4 MG/2 ML VIAL IV PUSH PRN (12:34)
--- NOTE | 2017-11-26 13:20 | HHI.PR ---
Subjective Patient symptoms today Resting quietly Objective Vital Signs Vital Signs Date Time Temp Pulse Resp B/P (MAP) Pulse Ox O2 Delivery O2 Flow Rate FiO2 11/26/17 12:00 97.7 65 12 108/54 (72) 100 11/26/17 10:10 14 11/26/17 10:00 75 11/26/17 08:00 66 11/26/17 08:00 98.0 66 29 97/52 (67) 100 11/26/17 06:00 66 11/26/17 04:00 98.4 74 20 106/52 (70) 100 11/26/17 04:00 67 11/26/17 02:00 68 11/26/17 00:00 71 11/26/17 00:00 98.1 71 26 113/55 (74) 100 11/25/17 22:25 99 Nasal Cannula 3.00 11/25/17 22:00 71 11/25/17 20:00 98.8 74 18 119/60 (79) 100 11/25/17 20:00 74 11/25/17 19:30 98.1 76 20 121/56 (77) 100 11/25/17 19:15 98.1 76 20 128/50 (76) 100 Nasal Cannula 2 11/25/17 19:07 96.5 79 22 109/53 (71) 100 11/25/17 14:00 97.7 68 14 116/55 (75) 100 Intake & Output 11/26/17 11/26/17 07:00 19:00 Output Total 3500 ml Balance -3500 ml Output Urine Total 3500 ml Bladder Scan Volume Amount 17 ml Result Diagram: 11/26/1731411/26/175 Imaging Last 24 hours Impressions Chest X-Ray 11/26/17 0600 Signed Impressions: Service Date/Time: November 05:36 - CONCLUSION: Some progression in the bilateral pulmonary infiltrates. Jesus Deal Jr., MD Objective Remarks CBI running at a moderate rate with clear output Bladder not distended Medications and IVs Current Medications Medications (Trade) Dose Ordered Sig/Micheal Route Start Time Stop Time Status Last Admin (Narcan Inj) 0.4 mg UNSCH PRN IV PUSH 11/10/17 14:15 (Flomax) 0.4 mg DAILY PO 11/11/17 09:00 11/26/17 09:20 (Catapres) 0.1 mg Q6H PRN PO 11/10/17 18:15 11/11/17 20:52 Aminocaproic Acid 3000 mg/Sodium Chloride 3,012 ml @ 0 mls/hr UNSCH IRRIGATION 11/13/17 14:15 Future Hold 11/20/17 09:19 (NS Flush) 2 ml UNSCH PRN IV FLUSH 11/13/17 16:45 (NS Flush) 2 ml BID IV FLUSH 11/13/17 21:00 11/25/17 21:00 (Aspirin Chew) 162 mg DAILY PO 11/14/17 09:00 11/26/17 09:21 (Plavix) 75 mg DAILY PO 11/14/17 09:00 11/26/17 09:20 (Coreg) 3.125 mg BID PO 11/13/17 21:00 11/26/17 09:20 (Lipitor) 10 mg HS PO 11/13/17 21:00 11/25/17 21:00 (Zofran Inj) 4 mg Q6HR PRN IV PUSH 11/13/17 19:30 11/26/17 12:34 Aminocaproic Acid 1000 mg/Sodium Chloride 1,004 ml @ 0 mls/hr UNSCH IRRIGATION 11/14/17 17:00 Future Hold (Protonix Inj) 40 mg DAILY IV PUSH 11/17/17 09:00 11/26/17 09:21 (Miralax) 17 gm DAILY PO 11/17/17 11:00 11/24/17 08:17 Miscellaneous Information Patient in critical care unit? Ass... [id number] .XX 11/17/17 20:45 11/17/17 20:45 (Dilaudid Pf Inj) 0.5 mg Q4H PRN IV 11/17/17 21:15 11/26/17 09:40 (Dilaudid Pf Inj) 0.2 mg Q4H PRN IV PUSH 11/17/17 21:15 Acetaminophen 100 ml @ 400 mls/hr Q8HR PRN IV 11/17/17 21:15 (Albuterol Neb) 2.5 mg Q2HR NEB PRN NEB 11/17/17 21:15 11/18/17 01:46 (Lelia-Colace) 1 tab BID PO 11/18/17 09:00 11/26/17 09:20 (Lactulose Liq) 30 ml DAILY PO 11/18/17 09:00 11/24/17 08:16 (Melatonin) 5 mg HS PRN PO 11/18/17 20:00 (Cordarone) 200 mg Q12H PO 11/26/17 05:00 11/26/17 05:00 (NovoLOG SUPPLEMENTAL SCALE) 1 ACHS SLIDING SCALE SQ 11/21/17 12:00 11/25/17 08:00 (D50w (Vial) Inj) 50 ml UNSCH PRN IV PUSH 11/21/17 09:30 (Glucagon Inj) 1 mg UNSCH PRN OTHER 11/21/17 09:30 (Ditropan) 5 mg Q12H PRN PO 11/22/17 18:00 11/22/17 18:04 Sodium Chloride 1,000 ml @ 84 mls/hr [id number] IV 11/23/17 09:00 11/26/17 10:29 (Proscar) 5 mg DAILY PO 11/26/17 09:00 11/26/17 09:20 Miscellaneous Information ALL NURSING DEPARTME... UNSCH PRN .XX 11/25/17 19:11 11/26/17 19:10 Acetaminophen 100 ml @ 400 mls/hr Q6H PRN IV 11/26/17 11:30 11/26/17 11:58 Assessment and Plan Assessment and Plan -Discussed with patient's family his current clinical status and hematuria with large bladder clot noted within the bladder -At this time, the patient's family is very hesitant to under go any further surgical intervention and they do understand the large bladder clot will not be able to be removed with surgery -In addition, given his recent SD and cardiac stents, Plavix is not able to be held -Therefore his current clinical situation may not improve, even with intervention to remove the large bladder clot as he may continue to bleed -Patient will need urgent/emergent cysto and clot evacuation if the catheter does not drain and his bladder becomes distended and painful. Family does understand this and would like to leave him as is for as long as possible -Alternatively, bilateral nephrostomy tubes may be placed to divert urine from the bladder. This may not be a good option given the Plavix -No surgical intervention at this time. Continue management with CBI and hand irrigation as needed -Will refer care back to [facility], Dr. Lee, tomorrow am 11/23/2017 Discussed ongoing management with Amicar CBI. Discussed that it may take up to 2 weeks for the urine to totally clear as patient is presently on anticoagulation therapy. We will irrigate CBI catheter as needed Once CBI discontinued, patient will require an indwelling Ma catheter for an extended period of time to allow any residual clot material to dissolve. 11/25/2017 Persistent gross hematuria with bladder distention despite catheter change and irrigation We will keep patient n.p.o. We will bring patient to the cystoscopy suite for cystoscopy, clot evacuation and fulguration of any ongoing bleeding sites Risks and benefits discussed with patient and family 11/26/2017 Postop day #1 status post clot evacuation and fulguration to bladder neck region CBI running with clear output Wean off CBI as urine clears Hernando Roberts MD Nov 26, 2017 13:20
[2017-11-26] MEDS: ATORVASTATIN 10 MG TAB PO SCH (19:43)
[2017-11-27] VITALS (15 sets, daily range): BP systolic 102–146; BP diastolic 56–77; PULSE 62–84; RESP 16–18; TEMP 97.8–98.7; O2SAT 86–98
[2017-11-27] MEDS: AMIODARONE 200 MG TAB PO SCH ×2 (05:00→17:00)
[2017-11-27] MEDS: INSULIN ASPART SUPPLEMENTAL SCALE SQ SCH ×4 (08:00→21:00)
[2017-11-27] MEDS: SODIUM CHLOR 0.9% 1000 ML INJ 1,000 ML IV SCH ×2 (08:20→20:15)
[2017-11-27] MEDS: SODIUM CHLORIDE 0.9% FLUSH 10 ML FLUSH IV FLUSH SCH ×2 (08:36→21:23)
[2017-11-27] MEDS: DOCUSATE SODIUM 50 MG/SENNA 8.6 MG TAB PO SCH ×2 (09:40→21:23)
[2017-11-27] MEDS: FINASTERIDE 5 MG TAB PO SCH (09:40)
[2017-11-27] MEDS: TAMSULOSIN HCL 0.4 MG CAP PO SCH (09:40)
[2017-11-27] MEDS: PANTOPRAZOLE SODIUM 40 MG VIAL IV PUSH SCH (09:40)
[2017-11-27] MEDS: CLOPIDOGREL 75 MG TAB PO SCH (09:41)
[2017-11-27] MEDS: ASPIRIN 81 MG CHEW TAB PO SCH (09:41)
[2017-11-27] MEDS: CARVEDILOL 3.125 MG TAB PO SCH ×2 (09:41→21:23)
[2017-11-27] MEDS: POLYETHYLENE GLYCOL 17 GM PKG PO SCH (09:41)
[2017-11-27] MEDS: LACTULOSE SYRUP 20 GM/30 ML CUP PO SCH (09:41)
--- NOTE | 2017-11-27 12:21 | HHI.PR ---
Subjective Patient symptoms today Resting comfortably Denies complaints Objective Vital Signs Vital Signs Date Time Temp Pulse Resp B/P (MAP) Pulse Ox O2 Delivery O2 Flow Rate FiO2 11/27/17 10:47 94 11/27/17 08:00 75 11/27/17 08:00 97.8 76 18 107/58 (74) 94 11/27/17 06:00 70 11/27/17 05:00 65 11/27/17 05:00 98.7 62 16 146/74 (98) 86 11/27/17 04:00 68 11/27/17 02:00 64 11/27/17 01:00 98.0 84 16 139/77 (97) 92 11/27/17 01:00 66 11/27/17 00:00 66 11/26/17 23:00 98.4 66 16 101/60 (74) 97 11/26/17 23:00 75 11/26/17 22:00 72 19 103/57 (72) 100 11/26/17 22:00 72 11/26/17 20:00 75 11/26/17 20:00 98.0 75 20 104/59 (74) 100 11/26/17 19:02 100 Nasal Cannula 3.00 11/26/17 18:00 79 11/26/17 16:00 97.7 72 28 118/60 (79) 74 11/26/17 16:00 72 11/26/17 14:00 62 11/26/17 13:42 13 Intake & Output 11/27/17 11/27/17 07:00 19:00 Intake Total 480 ml Output Total 950 ml Balance -470 ml Intake Oral 480 ml Output Urine Total 950 ml # Bowel Movements 0 Result Diagram: 11/26/175 11/26/17314 Objective Remarks CBI running at a slow rate with clear output Bladder not distended Medications and IVs Current Medications Medications (Trade) Dose Ordered Sig/Micheal Route Start Time Stop Time Status Last Admin (Narcan Inj) 0.4 mg UNSCH PRN IV PUSH 11/10/17 14:15 (Flomax) 0.4 mg DAILY PO 11/11/17 09:00 11/27/17 09:40 (Catapres) 0.1 mg Q6H PRN PO 11/10/17 18:15 11/11/17 20:52 Aminocaproic Acid 3000 mg/Sodium Chloride 3,012 ml @ 0 mls/hr UNSCH IRRIGATION 11/13/17 14:15 Future Hold 11/20/17 09:19 (NS Flush) 2 ml UNSCH PRN IV FLUSH 11/13/17 16:45 (NS Flush) 2 ml BID IV FLUSH 11/13/17 21:00 11/27/17 08:36 (Aspirin Chew) 162 mg DAILY PO 11/14/17 09:00 11/27/17 09:41 (Plavix) 75 mg DAILY PO 11/14/17 09:00 11/27/17 09:41 (Coreg) 3.125 mg BID PO 11/13/17 21:00 11/27/17 09:41 (Lipitor) 10 mg HS PO 11/13/17 21:00 11/26/17 19:43 (Zofran Inj) 4 mg Q6HR PRN IV PUSH 11/13/17 19:30 11/26/17 12:34 Aminocaproic Acid 1000 mg/Sodium Chloride 1,004 ml @ 0 mls/hr UNSCH IRRIGATION 11/14/17 17:00 Future Hold (Protonix Inj) 40 mg DAILY IV PUSH 11/17/17 09:00 11/27/17 09:40 (Miralax) 17 gm DAILY PO 11/17/17 11:00 11/27/17 09:41 Miscellaneous Information Patient in critical care unit? Ass... Q361D .XX 11/17/17 20:45 11/17/17 20:45 (Dilaudid Pf Inj) 0.5 mg Q4H PRN IV 11/17/17 21:15 11/26/17 09:40 (Dilaudid Pf Inj) 0.2 mg Q4H PRN IV PUSH 11/17/17 21:15 Acetaminophen 100 ml @ 400 mls/hr Q8HR PRN IV 11/17/17 21:15 (Albuterol Neb) 2.5 mg Q2HR NEB PRN NEB 11/17/17 21:15 11/18/17 01:46 (Lelia-Colace) 1 tab BID PO 11/18/17 09:00 11/27/17 09:40 (Lactulose Liq) 30 ml DAILY PO 11/18/17 09:00 11/27/17 09:41 (Melatonin) 5 mg HS PRN PO 11/18/17 20:00 (Cordarone) 200 mg Q12H PO 11/26/17 05:00 11/27/17 05:00 (NovoLOG SUPPLEMENTAL SCALE) 1 ACHS SLIDING SCALE SQ 11/21/17 12:00 11/25/17 08:00 (D50w (Vial) Inj) 50 ml UNSCH PRN IV PUSH 11/21/17 09:30 (Glucagon Inj) 1 mg UNSCH PRN OTHER 11/21/17 09:30 (Ditropan) 5 mg Q12H PRN PO 11/22/17 18:00 11/22/17 18:04 Sodium Chloride 1,000 ml @ 84 mls/hr [id number] IV 11/23/17 09:00 11/27/17 08:20 (Proscar) 5 mg DAILY PO 11/26/17 09:00 11/27/17 09:40 Acetaminophen 100 ml @ 400 mls/hr Q6H PRN IV 11/26/17 11:30 11/26/17 11:58 Assessment and Plan Assessment and Plan -Discussed with patient's family his current clinical status and hematuria with large bladder clot noted within the bladder -At this time, the patient's family is very hesitant to under go any further surgical intervention and they do understand the large bladder clot will not be able to be removed with surgery -In addition, given his recent FL and cardiac stents, Plavix is not able to be held -Therefore his current clinical situation may not improve, even with intervention to remove the large bladder clot as he may continue to bleed -Patient will need urgent/emergent cysto and clot evacuation if the catheter does not drain and his bladder becomes distended and painful. Family does understand this and would like to leave him as is for as long as possible -Alternatively, bilateral nephrostomy tubes may be placed to divert urine from the bladder. This may not be a good option given the Plavix -No surgical intervention at this time. Continue management with CBI and hand irrigation as needed -Will refer care back to [facility], Dr. Lee, tomorrow am 11/23/2017 Discussed ongoing management with Amicar CBI. Discussed that it may take up to 2 weeks for the urine to totally clear as patient is presently on anticoagulation therapy. We will irrigate CBI catheter as needed Once CBI discontinued, patient will require an indwelling Ma catheter for an extended period of time to allow any residual clot material to dissolve. 11/25/2017 Persistent gross hematuria with bladder distention despite catheter change and irrigation We will keep patient n.p.o. We will bring patient to the cystoscopy suite for cystoscopy, clot evacuation and fulguration of any ongoing bleeding sites Risks and benefits discussed with patient and family 11/26/2017 Postop day #1 status post clot evacuation and fulguration to bladder neck region CBI running with clear output Wean off CBI as urine clears 11/27/2017 Resolving hematuria with CBI running at a slow rate Continue to titrate off CBI Suggest leaving Ma catheter to gravity drainage for minimum of 1 week after hematuria fully resolved Hernando Roberts MD Nov 27, 2017 12:21
--- NOTE | 2017-11-27 13:12 | HHI.PR ---
Subjective Remarks manufacture specialist Notes: 11/13: Patient is an 82-year-old male with past medical history of BPH, tobacco abuse who presented 11/12/2017 with dysuria, hematuria and urinary retention. Patient was admitted to the hospitalist service and underwent cystoscopy with fulguration by Dr. Lee. Was also placed on continuous bladder irrigation. Patient developed chest pain today a.m. EKG showed significant anterolateral ST elevation troponin bumped to 6.5 emergently taken to cardiac catheterization by Dr. Kelley. Received PCI, LAD stent,. Was loaded with 600 mg Plavix and was started on Aggrastat. Post stenting went to [facility] developed hypotension and was moved to the CVICU. Initially seen by Dr. Ryan patient had gross hematuria so O negative blood 2 units were ordered stat. I evaluated the patient in CVICU. He is persistently hypotensive receiving first 2 units of blood. Started on 1 mcg/min Levophed. Remains borderline hypotensive. Patient has significant gross hematuria, and is on CBI. He is anxious and complains about 9 out of 10 chest pain, I am starting on nitro drip. Patient may need IABP pain not resolved with nitro and Dilaudid/ Morphine. I have discussed with Dr. Kelley. 11/14: Resting comfortably in bed. Received 3 units PRBCs yesterday. Chest pain resolved currently. CBI with Amicar ongoing. Minimal pink tinged CBI fluid noted. 11/15: Resting comfortably. Denies SOB or abd pain. No chest pain currently. 11/17: Patient 10 minute episode of reperfusion rhythm/V. tach. Potassium is 3.2. Magnesium 1.8 this a.m. Given 2 g mag sulfate IV 1 now. We placed on amiodarone drip. Discussed with Dr. Kelley will transfer to [facility] [place]. 11/18: Late entry note. Patient was noted to be hypokalemic this a.m. repletion provided. Patient denies any chest pain. Patient remains in sinus rhythm, amiodarone infusion continued. Family at bedside requesting possible transfer to another facility secondary to disappointment and care being provided. Case management consult initiated. EPS consulted, Dr. Jackson. Discussed with , family's request and plan of treatment. 11/19: Oxygen requirements increased overnight, now on partial rebreather ,chest x -ray showed new bilateral pleural effusions. IV fluids discontinued. Lasix 40 mg IV given 1 dose. The patient denies pain resting comfortably. Amiodarone continues IV infusion, plans to transition to PO today, discussed with Dr. Jackson. 11/20: Chest x-ray worsening, aggressive diuresis continued the patient received Lasix 80 mg yesterday. Patient continues on partial nonrebreather mask O2 sat 95% CT chest pending. Persistent leukocytosis noted ID has been consulted. Empiric antibiotics have been initiated. Patient had BM last evening, diet has been advanced to clear liquid per GI. 11/21: Afebrile. Patient denies chest pain. Slight improvement in chest x-ray, FiO2 requirement slightly decreased patient currently on O2 at 4 L nasal cannula. Patient continues to have bilateral pleural effusions and pulmonary edema, with slight improvement. Overnight the patient was noted to have urinary obstruction, Dr. Lee notified, 3-way Hernández change from 22 Amharic to 24F, patient was noted to have significant pain, patient received belladonna, Dilaudid and bladder was irrigated concurrently with a noted drop in blood pressure with a systolic in the 70s. Diuresis (Lasix) held for 24 hours , secondary to increasing creatinine to 2.0, possibly due to urinary obstruction last evening versus diuretic therapy. Noted resolution without medical intervention. Gross hematuria was again noted after placement of the new 3-way Hernández. Hemoglobin at midnight was noted to be 8.3, no transfusion was provided, hemoglobin this a.m. 7.7, patient to be transfused 2 units packed red blood cells,with posttransfusion CBC. Patient was seen by ID, antibiotics per ID recommendations. Provided extensive discussion with family, regarding overnight events and plans for treatment today. 11/21: 1300- Pt's MAP ranging 55-60. Risk and benefits discussed with family consent obtained from POA plan for central line placement and initiate Levophed infusion. 11/22: Norepinephrine discontinued at 1900 last evening. The patient remains hemodynamically stable. A.m labs reveal elevated creatinine, concern for obstruction, renal ultrasound performed, Dr. Shi notified of results.Renal US revealed mass versus debris obstructing lumen of Hernández Patient denies pain, CBI continued. Hemoglobin 8.21 unit of packed red blood cells being transfused to maintain HGB 9.0.Multiple repeated flushing and irrigation of hernández. Repeat BMP pending. 11/23 No events overnight. Awake and alert. Renal function is worsening with Cr: 5.21 from 4.59, 11/24 Patient is lying in bed in NAD. Afebrile. Cr: 5.44. On CBI per Urology. 11/25: C/o nausea after receiving pain meds. Continues to have hematuria on CBI. CMP is pending today. No chest pain 11/26: s/p Cystoscopy, evacuation of clots and fulguration of bladder neck region. Hematuria is clearing, creat also slightly improved to 4.8 today. No indication for hemodialysis urine output is adequate Hospitalist Notes: 11/27: Seen in his bedroom, no nausea, vomit or diarrhea, resolving hematuria, continue on Continuous Bladder irrigation, as per Urology specialist to continue CBI and suggest leaving Hernández catheter to gravity drainage for minimum of 1 week after Hematuria fully resolved. Objective Vital Signs Date Time Temp Pulse Resp B/P (MAP) Pulse Ox O2 Delivery O2 Flow Rate FiO2 11/27/17 10:47 94 11/27/17 08:00 75 11/27/17 08:00 97.8 76 18 107/58 (74) 94 11/27/17 06:00 70 11/27/17 05:00 65 11/27/17 05:00 98.7 62 16 146/74 (98) 86 11/27/17 04:00 68 11/27/17 02:00 64 11/27/17 01:00 98.0 84 16 139/77 (97) 92 11/27/17 01:00 66 11/27/17 00:00 66 11/26/17 23:00 98.4 66 16 101/60 (74) 97 11/26/17 23:00 75 11/26/17 22:00 72 19 103/57 (72) 100 11/26/17 22:00 72 11/26/17 20:00 75 11/26/17 20:00 98.0 75 20 104/59 (74) 100 11/26/17 19:02 100 Nasal Cannula 3.00 11/26/17 18:00 79 11/26/17 16:00 97.7 72 28 118/60 (79) 74 11/26/17 16:00 72 11/26/17 14:00 62 11/26/17 13:42 13 I/O 11/26/17 11/26/17 11/26/17 11/27/17 11/27/17 11/27/17 07:00 15:00 23:00 07:00 15:00 23:00 Intake Total 1100 ml 690 ml 240 ml Output Total 3500 ml 600 ml 950 ml Balance -3500 ml 1100 ml 90 ml -710 ml Intake Oral 690 ml 240 ml IV Total 1100 ml Output Urine Total 3500 ml 600 ml 950 ml # Bowel Movements 0 0 Result Diagram: 11/26/17 0315 11/26/17 0315 Imaging Last Impressions Chest X-Ray 11/26/17 0600 Signed Impressions: Service Date/Time: November 05:36 - CONCLUSION: Some progression in the bilateral pulmonary infiltrates. Jesus Deal Jr., MD Abdomen X-Ray 11/25/17 0000 Signed Impressions: Service Date/Time: Saturday, November 25, 2017 11:39 - CONCLUSION: 1. No calcified stones seen. 2. Nonspecific abdominal bowel gas pattern with diffuse gas containing minimally distended loops of small bowel. Jesus Martinez MD Renal Ultrasound 11/22/17 0000 Signed Impressions: Service Date/Time: Wednesday, November 22, 2017 10:23 - CONCLUSION: 1. Intraluminal mass versus debris within the urinary bladder completely encasing the Hernández catheter. 2. Simple right renal cyst. 3. No evidence of hydronephrosis. Isaias Hanna MD Chest CT 11/20/17 0000 Signed Impressions: Service Date/Time: Monday, November 20, 2017 22:03 - CONCLUSION: Diffuse confluent airspace opacities throughout both lungs obscuring portions of the right middle lobe. There is associated large bilateral pleural effusions. Jesus Martinez MD Abdomen/Pelvis CT 11/19/17 0819 Signed Impressions: Service Date/Time: November 09:06 - CONCLUSION: 1. The bowel gas pattern remains within normal limits. No mechanical obstruction. 2. There is a right inguinal hernia containing loops of small and large bowel without obstruction. 3. There is a Hernández catheter in urinary bladder. However, the balloon on the Hernández catheter appears to be inflated within the prostatic urethra. This may need to be adjusted. 4. There continues to be mixed density within the urinary bladder as well as air. This is not significantly changed compared to the prior exam. 5. Diffuse enlargement of the prostate gland. 6. New bilateral pleural effusions as well as bibasilar infiltrates. Amador Leiva MD Procedures Cystoscopy, Fulguration and Bladder irrigation. Other Results Laboratory Tests Test 11/10/17 12:20 11/13/17 18:30 11/14/17 03:40 11/14/17 09:45 Urine Squamous Epithelial Cells 3 /hpf Urine Bacteria OCC /hpf Blood Gas Liter Flow 2 L/M Triglycerides Level 118 MG/DL Cholesterol Level 142 MG/DL LDL Cholesterol 88 MG/DL HDL Cholesterol 30.8 MG/DL Cholesterol/HDL Ratio 4.61 RATIO Creatine Kinase MB 272.0 NG/ML Creatine Kinase MB % 19.6 % Test 11/16/17 01:41 11/17/17 04:20 11/17/17 18:44 11/17/17 20:00 Lipase 57 U/L Blood Urea Nitrogen 19 MG/DL Creatinine 1.00 MG/DL Random Glucose 104 MG/DL Total Protein 4.7 GM/DL Albumin 2.0 GM/DL Calcium Level 7.0 MG/DL Magnesium Level 1.8 MG/DL Alkaline Phosphatase 51 U/L Aspartate Amino Transf (AST/SGOT) 51 U/L Alanine Aminotransferase (ALT/SGPT) 26 U/L Total Bilirubin 0.4 MG/DL Direct Bilirubin 0.1 MG/DL Sodium Level 143 MEQ/L Potassium Level 3.6 MEQ/L Chloride Level 111 MEQ/L Carbon Dioxide Level 24.2 MEQ/L Indirect Bilirubin 0.3 MG/DL Thyroid Stimulating Hormone 3rd Gen 1.120 uIU/ML Differential Total Cells Counted 100 Neutrophils % (Manual) 61 % Band Neutrophils % 1 % Lymphocytes % 34 % Monocytes % 3 % Eosinophils % 1 % Neutrophils # (Manual) 12.1 TH/MM3 Nucleated Red Blood Cells 1 /100 WBC Atypical Lymphocytes % Platelet Estimate NORMAL Platelet Morphology Comment NORMAL Activated Partial Thromboplast Time 23.5 SEC Total Creatine Kinase 156 U/L Nasal Screen MRSA (PCR) MRSA NOT DETECTED Test 11/18/17 01:00 11/18/17 05:16 11/19/17 05:05 11/21/17 04:26 Urine Color LIGHT-RED Urine Turbidity CLEAR Urine pH 6.0 Urine Specific Igo 1.012 Urine Protein 30 mg/dL Urine Glucose (UA) NEG mg/dL Urine Ketones TRACE mg/dL Urine Occult Blood LARGE Urine Nitrite NEG Urine Bilirubin NEG Urine Urobilinogen LESS THAN 2.0 MG/DL Urine Leukocyte Esterase SMALL Urine RBC /hpf Urine WBC 96 /hpf Urine Mucus FEW /lpf Microscopic Urinalysis Comment CATH-CULTURE IND Random Cortisol 35.7 MCG/DL Fibrinogen 392 mg/dL Lactic Acid Level 1.4 mmol/L Troponin I 4.86 NG/ML Test 11/21/17 10:55 11/23/17 03:40 11/25/17 18:25 11/26/17 03:15 Prothrombin Time 12.2 SEC Prothromb Time International Ratio 1.2 RATIO Random Vancomycin Level 16.5 COMMENT Blood Gas Puncture Site DRAWN IN OR Blood Gas Patient Temperature 98.6 Blood Gas HCO3 20 mmol/L Blood Gas Base Excess -4.4 mmol/L Blood Gas Oxygen Saturation 96 % Arterial Blood pH 7.38 Arterial Blood Partial Pressure CO2 35 mmHg Arterial Blood Partial Pressure O2 146 mmHg Arterial Blood Oxygen Content 17.9 Vol % Arterial Blood Carboxyhemoglobin 1.2 % Arterial Blood Methemoglobin 1.3 % Blood Gas Hemoglobin 13.1 G/DL Oxygen Delivery Device VENTILATOR Blood Gas Ventilator Setting OR Blood Gas Inspired Oxygen 60 % White Blood Count 15.9 TH/MM3 Red Blood Count 2.84 MIL/MM3 Hemoglobin 8.3 GM/DL Hematocrit 24.8 % Mean Corpuscular Volume 87.2 FL Mean Corpuscular Hemoglobin 29.3 PG Mean Corpuscular Hemoglobin Concent 33.5 % Red Cell Distribution Width 14.8 % Platelet Count 188 TH/MM3 Mean Platelet Volume 8.9 FL Neutrophils (%) (Auto) 84.5 % Lymphocytes (%) (Auto) 8.9 % Monocytes (%) (Auto) 5.6 % Eosinophils (%) (Auto) 0.7 % Basophils (%) (Auto) 0.3 % Neutrophils # (Auto) 13.4 TH/MM3 Lymphocytes # (Auto) 1.4 TH/MM3 Monocytes # (Auto) 0.9 TH/MM3 Eosinophils # (Auto) 0.1 TH/MM3 Basophils # (Auto) 0.0 TH/MM3 CBC Comment DIFF FINAL Differential Comment Blood Urea Nitrogen 51 MG/DL Creatinine 4.81 MG/DL Random Glucose 81 MG/DL Total Protein 4.4 GM/DL Albumin 1.5 GM/DL Calcium Level 6.5 MG/DL Phosphorus Level 4.8 MG/DL Magnesium Level 2.0 MG/DL Alkaline Phosphatase 56 U/L Aspartate Amino Transf (AST/SGOT) 25 U/L Alanine Aminotransferase (ALT/SGPT) 20 U/L Total Bilirubin 0.3 MG/DL Sodium Level 146 MEQ/L Potassium Level 4.4 MEQ/L Chloride Level 111 MEQ/L Carbon Dioxide Level 23.5 MEQ/L Anion Gap 12 MEQ/L Estimat Glomerular Filtration Rate 12 ML/MIN Protein Corrected Calcium 7.9 MG/DL Objective Remarks GENERAL: Well-nourished, well-developed patient, lying in bed awake, c/o lower abdominal pain SKIN: Skin assessment warm/dry. HEAD: Normocephalic. EYES: Pupils equal and reactive.EOMI. NECK: Supple, trachea midline. + JVD CARDIOVASCULAR: Regular rate and rhythm S1, S2. No S4. Without murmurs, RESPIRATORY: Breath sounds equal bilaterally. Breath sounds diminished in bases. No accessory muscle use. GASTROINTESTINAL: Abdomen soft, nondistended. Right inguinal hernia : CBI ongoing with hematuria noted, hematuria appears to be clearing MUSCULOSKELETAL: No cyanosis, or edema. NEURO: Alert awake oriented. No obvious focal deficit. Moves extremities 4 Medications and IVs Current Medications Medications (Trade) Dose Ordered Sig/Micheal Route Start Time Stop Time Status Last Admin (Narcan Inj) 0.4 mg UNSCH PRN IV PUSH 11/10/17 14:15 (Flomax) 0.4 mg DAILY PO 11/11/17 09:00 11/27/17 09:40 (Catapres) 0.1 mg Q6H PRN PO 11/10/17 18:15 11/11/17 20:52 Aminocaproic Acid 3000 mg/Sodium Chloride 3,012 ml @ 0 mls/hr UNSCH IRRIGATION 11/13/17 14:15 Future Hold 11/20/17 09:19 (NS Flush) 2 ml UNSCH PRN IV FLUSH 11/13/17 16:45 (NS Flush) 2 ml BID IV FLUSH 11/13/17 21:00 11/27/17 08:36 (Aspirin Chew) 162 mg DAILY PO 11/14/17 09:00 11/27/17 09:41 (Plavix) 75 mg DAILY PO 11/14/17 09:00 11/27/17 09:41 (Coreg) 3.125 mg BID PO 11/13/17 21:00 11/27/17 09:41 (Lipitor) 10 mg HS PO 11/13/17 21:00 11/26/17 19:43 (Zofran Inj) 4 mg Q6HR PRN IV PUSH 11/13/17 19:30 11/26/17 12:34 Aminocaproic Acid 1000 mg/Sodium Chloride 1,004 ml @ 0 mls/hr UNSCH IRRIGATION 11/14/17 17:00 Future Hold (Protonix Inj) 40 mg DAILY IV PUSH 11/17/17 09:00 11/27/17 09:40 (Miralax) 17 gm DAILY PO 11/17/17 11:00 11/27/17 09:41 Miscellaneous Information Patient in critical care unit? Ass... Q361D .XX 11/17/17 20:45 11/17/17 20:45 (Dilaudid Pf Inj) 0.5 mg Q4H PRN IV 11/17/17 21:15 11/26/17 09:40 (Dilaudid Pf Inj) 0.2 mg Q4H PRN IV PUSH 11/17/17 21:15 Acetaminophen 100 ml @ 400 mls/hr Q8HR PRN IV 11/17/17 21:15 (Albuterol Neb) 2.5 mg Q2HR NEB PRN NEB 11/17/17 21:15 11/18/17 01:46 (Lelia-Colace) 1 tab BID PO 11/18/17 09:00 11/27/17 09:40 (Lactulose Liq) 30 ml DAILY PO 11/18/17 09:00 11/27/17 09:41 (Melatonin) 5 mg HS PRN PO 11/18/17 20:00 (Cordarone) 200 mg Q12H PO 11/26/17 05:00 11/27/17 05:00 (NovoLOG SUPPLEMENTAL SCALE) 1 ACHS SLIDING SCALE SQ 11/21/17 12:00 11/25/17 08:00 (D50w (Vial) Inj) 50 ml UNSCH PRN IV PUSH 11/21/17 09:30 (Glucagon Inj) 1 mg UNSCH PRN OTHER 11/21/17 09:30 (Ditropan) 5 mg Q12H PRN PO 11/22/17 18:00 11/22/17 18:04 Sodium Chloride 1,000 ml @ 84 mls/hr [id number] IV 11/23/17 09:00 11/27/17 08:20 (Proscar) 5 mg DAILY PO 11/26/17 09:00 11/27/17 09:40 Acetaminophen 100 ml @ 400 mls/hr Q6H PRN IV 11/26/17 11:30 11/26/17 11:58 A/P Assessment and Plan 1. Bladder spasm/Pain giving Hydromorphone 0.25 to 0.5 mg IV every 4 hours as needed pain, Zofran for nausea Melatonin 5 mg daily at bedtime when necessary for insomnia Oxybutynin PRN, IV Tylenol as needed for pain and fever urology specialist following 2. COPD continue oxygen, Bronchodilator, Mucolytic, incentive spirometry 3. STEMI status post PCI LAD stent/V tach resolved/Lactic acidosis Aspirin 162 mg daily, Plavix 75 mg daily, Coreg 3.125 mg BID, Atorvastatin 10 mg daily, Amiodarone 200 mg every 12 hours Echocardiogram LVEF 35-40%. Anterior lateral wall akinesia. Not on Felicaino- In due to renal failure 11/18 Consulted EPS-medical management secondary to the criticality of the patient, plan for possible Life Vest/defibrillator 4. Elevated AST CT abdomen/pelvis earlier this hospitalization revealed right inguinal hernia without signs of strangulation, hiatal hernia, diverticulosis without diverticulitis and BPH 11/19 CT abdomen and pelvis repeated-no change right inguinal hernia containing loops of small and large bowel no mechanical obstruction now new bilateral pleural effusions. BPH 5. Gross Hematuria/Status post cystoscopy and Fulguration/BPH/KIARA Continuous bladder irrigation with Amicar per urology s/p Cystoscopy, evacuation of clots and fulguration of bladder neck region Nephrology specialist following, Urology specialist following, continue Flomax, 11/22: Renal ultrasound. Intraluminal mass versus debris within the bladder completely encasing the Hernández, Simple right renal cyst. No evidence of hydronephrosis.Dr. Lee from Urology is following As per Urology specialist Doctor Scaglia, resolving hematuria, continue on Continuous Bladder irrigation, as per Urology specialist to continue CBI and suggest leaving Hernández catheter to gravity drainage for minimum of 1 week after Hematuria fully resolved. 6. Leukocytosis ID specialist following on Cefepime and Diflucan 7. Acute blood loss anemia status post 5 units of PRBCs PROPH: -Bilateral lower extremity SCDs. Chemical DVT prophylaxis is contraindicated at this time, organized clots flush from bladder. Continue SCDs David Daniels MD Nov 27, 2017 13:12
[2017-11-27 13:51] LABS: AUTOMATED NEUTROPHIL # 8.4 TH/MM3 (1.8-7.7); BASOPHIL % 0.3 % (0.0-2.0); EOSINOPHIL # 0.2 TH/MM3 (0-0.4); EOSINOPHIL % 1.8 % (0.0-4.0); HEMATOCRIT 22.7 % (39.0-51.0); HEMOGLOBIN 7.7 GM/DL (13.0-17.0); MEAN CELL VOLUME 87.9 FL (80.0-100.0); MEAN CORPUSCULAR HGB CONC 34.1 % (32.0-36.0); MEAN PLATELET VOLUME 8.4 FL (7.0-11.0); MONO % 6.2 % (0.0-8.0); MONOCYTE # 0.6 TH/MM3 (0-0.9); NEUT % 81.7 % (16.0-70.0); PLATELET COUNT 183 TH/MM3 (150-450); RED BLOOD COUNT 2.58 MIL/MM3 (4.50-5.90); RED CELL DISTRIBUTION WIDTH 15.2 % (11.6-17.2); WHITE BLOOD COUNT 10.3 TH/MM3 (4.0-11.0)
[2017-11-27 14:10] LABS: ALBUMIN 1.7 GM/DL (3.4-5.0); BICARBONATE 21.6 MEQ/L (21.0-32.0); CALCIUM-PROTEIN CORRECTED 8.4 MG/DL (8.5-10.1); CREATININE 3.87 MG/DL (0.60-1.30); TOTAL BILIRUBIN ADULT 0.4 MG/DL (0.2-1.0); TOTAL PROTEIN 4.5 GM/DL (6.4-8.2)
--- NOTE | 2017-11-27 17:27 | HHI.NPPN ---
Subjective Renal Problems: Hematuria Renal Failure: Acute History of Present Illness This is an 82-year-old male with a past medical history of hypertension, benign prostatic hypertrophy, history of TURP in 2006, possible history of mild chronic kidney disease with creatinine on presentation of 1.3 and remained in the range of 1.2 to 1.3 most of the time. He presented to the hospital and was admitted on 11/10 because of hematuria. Nephrology was called to see the patient because of elevated BUN and creatinine. The patient has been followed by Urology and the impression was the patient has possible prostatic bleeding and continue the Hernández catheter and irrigation (this was on admission), and continue the Flomax. It was recently found on the ultrasound of the kidneys, that he has intraluminal mass versus ___ _ in the urinary bladder. The creatinine has been gradually going up, and now it is 4.5. The patient has bloody urine and is to continue the bladder irrigation. He has nausea or vomiting, no history of diarrhea. The patient has all the cultures negative, and currently he is getting Diflucan and cefepime. Infectious Disease is following. Additional Remarks Patient is alert, remain with bladder irrigation, urine is getting clear. Review of Systems Respiratory Respiratory Remarks Denies any SOB Cardiovascular Cardiac Remarks denies any CP Genitourinary Remarks suprapubic discomfort Objective Data Data Vital Signs Date Time Temp Pulse Resp B/P (MAP) Pulse Ox O2 Delivery O2 Flow Rate FiO2 11/27/17 16:00 68 11/27/17 12:00 98.4 63 16 102/56 (71) 95 11/27/17 12:00 75 11/27/17 10:47 94 11/27/17 08:00 75 11/27/17 08:00 97.8 76 18 107/58 (74) 94 11/27/17 06:00 70 11/27/17 05:00 65 11/27/17 05:00 98.7 62 16 146/74 (98) 86 11/27/17 04:00 68 11/27/17 02:00 64 11/27/17 01:00 98.0 84 16 139/77 (97) 92 11/27/17 01:00 66 11/27/17 00:00 66 11/26/17 23:00 98.4 66 16 101/60 (74) 97 11/26/17 23:00 75 11/26/17 22:00 72 19 103/57 (72) 100 11/26/17 22:00 72 11/26/17 20:00 75 11/26/17 20:00 98.0 75 20 104/59 (74) 100 11/26/17 19:02 100 Nasal Cannula 3.00 11/26/17 18:00 79 -: 11/27/17 1319 11/27/17 1319 Tubes & Lines: Hernández Physical Exam General Appearance: No Acute Distress Pulmonary Resp Exam: Breath Sounds Equal, No Distress Cardiology CV Exam: Regular Gastrointestinal/Abdomen GI Exam: Bowel Sounds Present Genitourinary Exam: Flank Non-Tender Integumentary Skin Exam: Warm, Dry Extremeties Extremities Exam: No Edema Neurologic Neuro Exam: Alert, Awake Psychiatric Psych Exam: Appropriate Responses Assessment/Plan Discussed Condition With: Patient Assessment Summary: KIARA/Acute Renal Failure Electrolyte Assessment: Hypocalcemia Problem List: (1) KIARA (acute kidney injury) ICD Codes: N17.9 - Acute kidney failure, unspecified Plan: Acute kidney injury possibly related to obstruction or period of hypotension. 11/22: Renal ultrasound. Intraluminal mass versus debris within the urinary bladder completely encasing the Hernández catheter. Mass versus debris within the urinary bladder completely encasing the Hernández catheter. Simple right renal cyst. No evidence of hydronephrosis Urology is following the patient. Good urinary output. Denies any SOB or nausea. No Edema. Potassium WNL S/p Cystoscopy 11/25 with clot removal and fulguration of bleeding sites. Continue continuous bladder irrigation, as per urology. Will continue to monitor renal function and UOP Avoid nephrotoxins Continue gently hydration. Creatinine improving and now 3.8, expect to have more improvement. (2) Gross hematuria ICD Codes: R31.0 - Gross hematuria Status: Acute Plan: Indwelling hernández catheter. Urology consulted s/p Cystoscopy 11/25 (3) Obstructive uropathy ICD Codes: N13.9 - Obstructive and reflux uropathy, unspecified Status: Acute (4) BPH (benign prostatic hyperplasia) ICD Codes: N40.0 - Benign prostatic hyperplasia without lower urinary tract symptoms Status: Acute (5) Hypertension ICD Codes: I10 - Essential (primary) hypertension Status: Acute Plan: Well controlled Ashley Pal MD Nov 27, 2017 17:27
[2017-11-27] MEDS: ATORVASTATIN 10 MG TAB PO SCH (21:22)
[2017-11-28] VITALS (34 sets, daily range): BP systolic 107–155; BP diastolic 65–95; PULSE 60–100; RESP 18–34; TEMP 98–98.3; O2SAT 87–100
[2017-11-28] MEDS: MELATONIN 5 MG TAB PO PRN (01:00)
[2017-11-28] MEDS: AMIODARONE 200 MG TAB PO SCH ×2 (05:18→16:56)
[2017-11-28] MEDS: INSULIN ASPART SUPPLEMENTAL SCALE SQ SCH ×4 (08:00→21:00)
[2017-11-28] MEDS: RESP: ALBUTEROL 2.5 MG/3 ML NEB (PRN) NEB ×2 (08:21→16:25)
[2017-11-28] MEDS: SODIUM CHLORIDE 0.9% FLUSH 10 ML FLUSH IV FLUSH SCH ×2 (09:00→21:00)
[2017-11-28] MEDS: POLYETHYLENE GLYCOL 17 GM PKG PO SCH (09:38)
[2017-11-28] MEDS: LACTULOSE SYRUP 20 GM/30 ML CUP PO SCH (09:38)
[2017-11-28] MEDS: ASPIRIN 81 MG CHEW TAB PO SCH (09:39)
[2017-11-28] MEDS: CLOPIDOGREL 75 MG TAB PO SCH (09:39)
[2017-11-28] MEDS: TAMSULOSIN HCL 0.4 MG CAP PO SCH (09:40)
[2017-11-28] MEDS: FINASTERIDE 5 MG TAB PO SCH (09:40)
[2017-11-28] MEDS: PANTOPRAZOLE SODIUM 40 MG VIAL IV PUSH SCH (09:40)
[2017-11-28] MEDS: CARVEDILOL 3.125 MG TAB PO SCH ×2 (09:40→21:00)
[2017-11-28] MEDS: DOCUSATE SODIUM 50 MG/SENNA 8.6 MG TAB PO SCH ×2 (09:41→21:00)
--- NOTE | 2017-11-28 11:12 | HHI.NPPN ---
Subjective Renal Problems: Hematuria Renal Failure: Acute History of Present Illness This is an 82-year-old male with a past medical history of hypertension, benign prostatic hypertrophy, history of TURP in 2006, possible history of mild chronic kidney disease with creatinine on presentation of 1.3 and remained in the range of 1.2 to 1.3 most of the time. He presented to the hospital and was admitted on 11/10 because of hematuria. Nephrology was called to see the patient because of elevated BUN and creatinine. The patient has been followed by Urology and the impression was the patient has possible prostatic bleeding and continue the Hernández catheter and irrigation (this was on admission), and continue the Flomax. It was recently found on the ultrasound of the kidneys, that he has intraluminal mass versus ___ _ in the urinary bladder. The creatinine has been gradually going up, and now it is 4.5. The patient has bloody urine and is to continue the bladder irrigation. He has nausea or vomiting, no history of diarrhea. The patient has all the cultures negative, and currently he is getting Diflucan and cefepime. Infectious Disease is following. Additional Remarks Patient is alert. some shortness of breath today Indwelling Hernández catheter intact with irrigation. Urine hematuria improving. Review of Systems Respiratory Respiratory Remarks Denies any SOB Cardiovascular Cardiac Remarks denies any CP Genitourinary Remarks suprapubic discomfort Objective Data Data Vital Signs Date Time Temp Pulse Resp B/P (MAP) Pulse Ox O2 Delivery O2 Flow Rate FiO2 11/28/17 06:00 62 11/28/17 05:00 68 11/28/17 04:00 66 11/28/17 03:53 98.0 69 20 127/74 (91) 96 11/28/17 03:00 60 11/28/17 02:00 64 11/28/17 01:00 68 11/28/17 00:00 70 11/27/17 23:00 66 11/27/17 23:00 98.2 72 18 122/68 (86) 98 11/27/17 22:00 70 11/27/17 21:00 72 11/27/17 20:00 75 11/27/17 20:00 98.4 71 18 127/66 (86) 95 11/27/17 19:00 72 11/27/17 16:00 68 3/16/18 12:00 98.4 63 16 102/56 (71) 95 11/27/17 12:00 75 -: 11/27/17 1319 11/27/17 1319 Tubes & Lines: Hernández Physical Exam General Appearance: No Acute Distress Pulmonary Resp Exam: Breath Sounds Equal, No Distress Cardiology CV Exam: Regular Gastrointestinal/Abdomen GI Exam: Bowel Sounds Present Genitourinary Exam: Flank Non-Tender Integumentary Skin Exam: Warm, Dry Extremeties Extremities Exam: No Edema Neurologic Neuro Exam: Alert, Awake Psychiatric Psych Exam: Appropriate Responses Assessment/Plan Discussed Condition With: Patient Assessment Summary: KIARA/Acute Renal Failure Electrolyte Assessment: Hypocalcemia Problem List: (1) KIARA (acute kidney injury) ICD Codes: N17.9 - Acute kidney failure, unspecified Plan: Acute kidney injury possibly related to obstruction or period of hypotension. 11/22: Renal ultrasound. Intraluminal mass versus debris within the urinary bladder completely encasing the Hernández catheter. Mass versus debris within the urinary bladder completely encasing the Hernández catheter. Simple right renal cyst. No evidence of hydronephrosis Urology is following the patient. Renal function improving Good urinary output. Denies any SOB or nausea. No Edema. S/p Cystoscopy 11/25 with clot removal and fulguration of bleeding sites. Plan - no new labs today. Will order labs. Continue continuous bladder irrigation Will continue to monitor renal function and UOP Avoid nephrotoxins some subjective shortness of breath - will reduce IVFs to 50cc/hour (2) Gross hematuria ICD Codes: R31.0 - Gross hematuria Status: Acute Plan: Indwelling hernández catheter. Urology consulted s/p Cystoscopy 11/25 (3) Obstructive uropathy ICD Codes: N13.9 - Obstructive and reflux uropathy, unspecified Status: Acute (4) BPH (benign prostatic hyperplasia) ICD Codes: N40.0 - Benign prostatic hyperplasia without lower urinary tract symptoms Status: Acute (5) Hypertension ICD Codes: I10 - Essential (primary) hypertension Status: Acute Plan: Well controlled Sen Blackwell MD Nov 28, 2017 11:12
--- NOTE | 2017-11-28 14:47 | HHI.PR ---
Subjective Remarks Follow-up hematuria/pulmonary infiltrates 11/28/17-patient seen and examined, positive for shortness of breath and currently on 4 L nasal cannula. Hematuria improving Objective Vitals Vital Signs Date Time Temp Pulse Resp B/P (MAP) Pulse Ox O2 Delivery O2 Flow Rate FiO2 11/28/17 12:00 98.0 62 18 107/65 (79) 98 11/28/17 10:00 72 11/28/17 09:00 68 11/28/17 08:00 70 11/28/17 08:00 98.2 92 22 155/95 (115) 89 11/28/17 07:00 70 11/28/17 06:00 62 11/28/17 05:00 68 11/28/17 04:00 66 11/28/17 03:53 98.0 69 20 127/74 (91) 96 11/28/17 03:00 60 11/28/17 02:00 64 11/28/17 01:00 68 11/28/17 00:00 70 11/27/17 23:00 66 11/27/17 23:00 98.2 72 18 122/68 (86) 98 11/27/17 22:00 70 11/27/17 21:00 72 11/27/17 20:00 75 11/27/17 20:00 98.4 71 18 127/66 (86) 95 11/27/17 19:00 72 11/27/17 16:00 68 I/O 11/27/17 11/27/17 11/27/17 11/28/17 11/28/17 11/28/17 07:00 15:00 23:00 07:00 15:00 23:00 Intake Total 240 ml 5755 ml Output Total 950 ml 1750 ml Balance -710 ml 4005 ml Intake Oral 240 ml 240 ml IV Total 2515 ml Other 3000 ml Output Urine Total 950 ml 1750 ml # Bowel Movements 0 Result Diagram: 11/27/17 1319 11/27/17 1319 Imaging Last Impressions Chest X-Ray 11/26/17 0600 Signed Impressions: Service Date/Time: November 05:36 - CONCLUSION: Some progression in the bilateral pulmonary infiltrates. Jesus Deal Jr., MD Abdomen X-Ray 11/25/17 0000 Signed Impressions: Service Date/Time: Saturday, November 25, 2017 11:39 - CONCLUSION: 1. No calcified stones seen. 2. Nonspecific abdominal bowel gas pattern with diffuse gas containing minimally distended loops of small bowel. Jesus Martinez MD Renal Ultrasound 11/22/17 0000 Signed Impressions: Service Date/Time: Wednesday, November 22, 2017 10:23 - CONCLUSION: 1. Intraluminal mass versus debris within the urinary bladder completely encasing the Ma catheter. 2. Simple right renal cyst. 3. No evidence of hydronephrosis. Isaias Hanna MD Chest CT 11/20/17 0000 Signed Impressions: Service Date/Time: Monday, November 20, 2017 22:03 - CONCLUSION: Diffuse confluent airspace opacities throughout both lungs obscuring portions of the right middle lobe. There is associated large bilateral pleural effusions. Jesus Martinez MD Abdomen/Pelvis CT 11/19/17 0819 Signed Impressions: Service Date/Time: November 09:06 - CONCLUSION: 1. The bowel gas pattern remains within normal limits. No mechanical obstruction. 2. There is a right inguinal hernia containing loops of small and large bowel without obstruction. 3. There is a Ma catheter in urinary bladder. However, the balloon on the Ma catheter appears to be inflated within the prostatic urethra. This may need to be adjusted. 4. There continues to be mixed density within the urinary bladder as well as air. This is not significantly changed compared to the prior exam. 5. Diffuse enlargement of the prostate gland. 6. New bilateral pleural effusions as well as bibasilar infiltrates. Amador Leiva MD Objective Remarks GENERAL: NAD SKIN: Warm and dry. HEAD: Normocephalic. EYES: No scleral icterus. No injection or drainage. NECK: Supple, trachea midline. No JVD or lymphadenopathy. CARDIOVASCULAR: Regular rate and rhythm without murmurs, gallops, or rubs. RESPIRATORY: Breath sounds decrease bilaterally. No accessory muscle use. GASTROINTESTINAL: Abdomen soft, non-tender, nondistended. MUSCULOSKELETAL: No cyanosis, or edema. BACK: Nontender without obvious deformity. No CVA tenderness. Procedures Catheterization A/P Problem List: (1) Gross hematuria ICD Code: R31.0 - Gross hematuria Status: Acute (2) Obstructive uropathy ICD Code: N13.9 - Obstructive and reflux uropathy, unspecified Status: Acute (3) Cardiomyopathy ICD Code: I42.9 - Cardiomyopathy, unspecified (4) CAD (coronary artery disease) ICD Code: I25.10 - Atherosclerotic heart disease of torres martinez coronary artery without angina pectoris (5) Hypertension ICD Code: I10 - Essential (primary) hypertension Status: Acute (6) BPH (benign prostatic hyperplasia) ICD Code: N40.0 - Benign prostatic hyperplasia without lower urinary tract symptoms Status: Acute (7) KIARA (acute kidney injury) ICD Code: N17.9 - Acute kidney failure, unspecified Assessment and Plan 82-year-old man with 1. Bladder spasm/Pain giving Hydromorphone 0.25 to 0.5 mg IV every 4 hours as needed pain, Zofran for nausea Melatonin 5 mg daily at bedtime when necessary for insomnia Oxybutynin PRN, IV Tylenol as needed for pain and fever urology specialist following 2. COPD continue oxygen, Bronchodilator, Mucolytic, incentive spirometry 3. STEMI status post PCI LAD stent/V tach resolved/Lactic acidosis Aspirin 162 mg daily, Plavix 75 mg daily, Coreg 3.125 mg BID, Atorvastatin 10 mg daily, Amiodarone 200 mg every 12 hours Echocardiogram LVEF 35-40%. Anterior lateral wall akinesia. Not on Feliciano- In due to renal failure 11/18 Consulted EPS-medical management secondary to the criticality of the patient, plan for possible Life Vest/defibrillator 4. Elevated AST CT abdomen/pelvis earlier this hospitalization revealed right inguinal hernia without signs of strangulation, hiatal hernia, diverticulosis without diverticulitis and BPH 11/19 CT abdomen and pelvis repeated-no change right inguinal hernia containing loops of small and large bowel no mechanical obstruction now new bilateral pleural effusions. BPH 5. Gross Hematuria/Status post cystoscopy and Fulguration/BPH/KIARA Continuous bladder irrigation with Amicar per urology s/p Cystoscopy, evacuation of clots and fulguration of bladder neck region continue Flomax, Leave Ma catheter to gravity drainage for minimum of 1 week after Hematuria fully resolved. 6. Leukocytosis ID specialist Off Cefepime and Diflucan 7. Acute blood loss anemia status post 5 units of PRBCs 8. Shortness of breath decrease IV fluid rate to 50 mL/hour Check chest x-ray and treat accordingly Transfer to Mark Duran MD Nov 28, 2017 14:47
[2017-11-28 15:26] LABS: BASOPHIL % 0.4 % (0.0-2.0); EOSINOPHIL # 0.1 TH/MM3 (0-0.4); EOSINOPHIL % 1.2 % (0.0-4.0); HEMATOCRIT 22.5 % (39.0-51.0); HEMOGLOBIN 7.5 GM/DL (13.0-17.0); LYMPH % 9.6 % (9.0-44.0); LYMPHOCYTE # 0.9 TH/MM3 (1.0-4.8); MEAN CELL VOLUME 88.9 FL (80.0-100.0); MEAN CORPUSCULAR HEMOGLOBIN 29.7 PG (27.0-34.0); MEAN CORPUSCULAR HGB CONC 33.4 % (32.0-36.0); MEAN PLATELET VOLUME 8.6 FL (7.0-11.0); MONO % 6.1 % (0.0-8.0); MONOCYTE # 0.6 TH/MM3 (0-0.9); NEUT % 82.7 % (16.0-70.0); PLATELET COUNT 195 TH/MM3 (150-450); RED BLOOD COUNT 2.53 MIL/MM3 (4.50-5.90); RED CELL DISTRIBUTION WIDTH 14.8 % (11.6-17.2); WHITE BLOOD COUNT 9.7 TH/MM3 (4.0-11.0)
[2017-11-28 16:25] LABS: BICARBONATE 23.1 MEQ/L (21.0-32.0); CALCIUM 6.6 MG/DL (8.5-10.1); CREATININE 3.3 MG/DL (0.60-1.30)
[2017-11-28 16:40] LABS: CALCIUM-PROTEIN CORRECTED 7.6 MG/DL (8.5-10.1); TOTAL PROTEIN 5.1 GM/DL (6.4-8.2)
--- NOTE | 2017-11-28 16:53 | RADRPT ---
EXAM DATE/TIME: 11/28/2017 16:09 [facility] COMPARISON: CHEST SINGLE AP, November 26, 2017, 5:36. INDICATIONS : Short of Breath MEDICAL HISTORY : Hypertension. BPH SURGICAL HISTORY : Prostatectomy. ENCOUNTER: Subsequent ACUITY: 1 week PAIN SCORE: 0/10 LOCATION: chest FINDINGS: The heart is normal in size. There is diffuse interstitial edema. There are small bilateral effusions . The examination would suggest congestive failure. The overall appearance of the pulmonary infiltrat es is similar to previous dated 11/26/17. The visualized osseous structures are grossly intact. CONCLUSION: 1. Diffuse pulmonary infiltrates stable compared to prior. Sen Bellamy MD on November 28, 2017 at 16:50 Board Certified Radiologist. This report was verified electronically.
[2017-11-28] MEDS ORDERED: SODIUM CHLOR 0.9% 1000 ML INJ 1,000 ML IV SCH (17:00)
[2017-11-28] MEDS ORDERED: SODIUM CHLOR 0.9% 250 ML INJ 250 ML IV ONE (20:15)
[2017-11-28] MEDS: ATORVASTATIN 10 MG TAB PO SCH (21:00)
[2017-11-28 22:01] LABS: HEMATOCRIT 26.1 % (39.0-51.0); HEMOGLOBIN 8.5 GM/DL (13.0-17.0)
[2017-11-28] MEDS ORDERED: FUROSEMIDE 40 MG/4 ML VIAL ONE (22:30)
[2017-11-28] MEDS ORDERED: LORazepam 2 MG/ML VIAL ONE (22:50)
[2017-11-28] MEDS ORDERED: LORazepam 2 MG/ML VIAL IV PUSH ONE (23:00)
[2017-11-28] MEDS ORDERED: FUROSEMIDE 40 MG/4 ML VIAL IV PUSH ONE (23:00)
[2017-11-29] VITALS (19 sets, daily range): BP systolic 103–151; BP diastolic 57–89; PULSE 61–78; RESP 18–34; TEMP 97.9–98.6; O2SAT 97–100
[2017-11-29] MEDS: AMIODARONE 200 MG TAB PO SCH ×2 (04:01→18:39)
[2017-11-29 07:39] LABS: AUTOMATED NEUTROPHIL # 8.6 TH/MM3 (1.8-7.7); BASOPHIL % 0.4 % (0.0-2.0); EOSINOPHIL # 0.2 TH/MM3 (0-0.4); EOSINOPHIL % 1.5 % (0.0-4.0); HEMATOCRIT 29.8 % (39.0-51.0); HEMOGLOBIN 10.2 GM/DL (13.0-17.0); LYMPH % 10.4 % (9.0-44.0); LYMPHOCYTE # 1.1 TH/MM3 (1.0-4.8); MEAN CELL VOLUME 89.1 FL (80.0-100.0); MEAN CORPUSCULAR HEMOGLOBIN 30.4 PG (27.0-34.0); MEAN CORPUSCULAR HGB CONC 34.1 % (32.0-36.0); MEAN PLATELET VOLUME 8.4 FL (7.0-11.0); MONOCYTE # 0.6 TH/MM3 (0-0.9); NEUT % 81.7 % (16.0-70.0); PLATELET COUNT 234 TH/MM3 (150-450); RED BLOOD COUNT 3.35 MIL/MM3 (4.50-5.90); RED CELL DISTRIBUTION WIDTH 14.9 % (11.6-17.2); WHITE BLOOD COUNT 10.6 TH/MM3 (4.0-11.0)
[2017-11-29 07:41] LABS: CALCIUM 7.2 MG/DL (8.5-10.1); CREATININE 3.13 MG/DL (0.60-1.30)
[2017-11-29] MEDS: INSULIN ASPART SUPPLEMENTAL SCALE SQ SCH ×4 (08:00→21:00)
[2017-11-29 08:21] LABS: CALCIUM-PROTEIN CORRECTED 8.2 MG/DL (8.5-10.1); TOTAL PROTEIN 5.3 GM/DL (6.4-8.2)
[2017-11-29] MEDS: LACTULOSE SYRUP 20 GM/30 ML CUP PO SCH (08:44)
[2017-11-29] MEDS: CLOPIDOGREL 75 MG TAB PO SCH (08:45)
[2017-11-29] MEDS: TAMSULOSIN HCL 0.4 MG CAP PO SCH (08:45)
[2017-11-29] MEDS: ASPIRIN 81 MG CHEW TAB PO SCH (08:45)
[2017-11-29] MEDS: CARVEDILOL 3.125 MG TAB PO SCH ×2 (08:45→21:44)
[2017-11-29] MEDS: POLYETHYLENE GLYCOL 17 GM PKG PO SCH (08:46)
[2017-11-29] MEDS: SODIUM CHLORIDE 0.9% FLUSH 10 ML FLUSH IV FLUSH SCH ×2 (08:46→21:44)
[2017-11-29] MEDS: FINASTERIDE 5 MG TAB PO SCH (08:46)
[2017-11-29] MEDS: PANTOPRAZOLE SOD 40 MG DELAYED RELEASE TAB PO SCH (08:46)
[2017-11-29] MEDS: DOCUSATE SODIUM 50 MG/SENNA 8.6 MG TAB PO SCH ×2 (08:46→21:44)
--- NOTE | 2017-11-29 12:12 | HHI.NPPN ---
Subjective Renal Problems: Hematuria Renal Failure: Acute History of Present Illness This is an 82-year-old male with a past medical history of hypertension, benign prostatic hypertrophy, history of TURP in 2006, possible history of mild chronic kidney disease with creatinine on presentation of 1.3 and remained in the range of 1.2 to 1.3 most of the time. He presented to the hospital and was admitted on 11/10 because of hematuria. Nephrology was called to see the patient because of elevated BUN and creatinine. The patient has been followed by Urology and the impression was the patient has possible prostatic bleeding and continue the Hernández catheter and irrigation (this was on admission), and continue the Flomax. It was recently found on the ultrasound of the kidneys, that he has intraluminal mass versus ___ _ in the urinary bladder. The creatinine has been gradually going up, and now it is 4.5. The patient has bloody urine and is to continue the bladder irrigation. He has nausea or vomiting, no history of diarrhea. The patient has all the cultures negative, and currently he is getting Diflucan and cefepime. Infectious Disease is following. Additional Remarks Patient is alert. Halicat to [facility] [place] yesterday for dyspnea - improved with bipap, lasix. Indwelling Hernández catheter intact with irrigation. Urine hematuria improving. Review of Systems Respiratory Respiratory Remarks Denies any SOB Cardiovascular Cardiac Remarks denies any CP Genitourinary Remarks suprapubic discomfort Objective Data Data Vital Signs Date Time Temp Pulse Resp B/P (MAP) Pulse Ox O2 Delivery O2 Flow Rate FiO2 11/29/17 07:43 100 40 11/29/17 06:00 67 11/29/17 04:00 68 11/29/17 04:00 98.1 68 27 131/75 (93) 100 11/29/17 03:19 100 60 11/29/17 02:00 61 11/29/17 00:20 98.1 73 25 132/89 100 11/29/17 00:04 98.2 63 18 103/57 100 11/29/17 00:00 63 11/29/17 00:00 98.2 63 18 103/57 (72) 100 11/28/17 23:15 80 11/28/17 23:00 78 11/28/17 23:00 100 125/75 (92) 100 11/28/17 22:58 79 11/28/17 22:50 100 70 11/28/17 22:35 88 6.00 50 11/28/17 22:30 98.3 94 30 129/70 (89) 87 11/28/17 22:12 95 Venturi Mask 3.00 28 11/28/17 22:00 76 11/28/17 21:28 96 Nasal Cannula 2.00 11/28/17 21:00 72 11/28/17 20:00 74 11/28/17 19:32 98.0 76 34 129/70 (89) 98 11/28/17 19:30 75 11/28/17 19:00 70 11/28/17 18:49 76 11/28/17 17:00 70 11/28/17 16:14 98.0 68 18 125/68 (87) 94 11/28/17 16:00 68 11/28/17 14:00 60 11/28/17 13:00 66 -: 11/29/17 0610 11/29/17 0610 Tubes & Lines: Hernández Physical Exam General Appearance: No Acute Distress Pulmonary Resp Exam: Breath Sounds Equal, No Distress Cardiology CV Exam: Regular Gastrointestinal/Abdomen GI Exam: Bowel Sounds Present Genitourinary Exam: Flank Non-Tender Integumentary Skin Exam: Warm, Dry Extremeties Extremities Exam: No Edema Neurologic Neuro Exam: Alert, Awake Psychiatric Psych Exam: Appropriate Responses Assessment/Plan Discussed Condition With: Patient Assessment Summary: KIARA/Acute Renal Failure Electrolyte Assessment: Hypocalcemia Problem List: (1) KIARA (acute kidney injury) ICD Codes: N17.9 - Acute kidney failure, unspecified Plan: Acute kidney injury possibly related to obstruction or period of hypotension. 11/22: Renal ultrasound. Intraluminal mass versus debris within the urinary bladder completely encasing the Hernández catheter. Mass versus debris within the urinary bladder completely encasing the Hernández catheter. Simple right renal cyst. No evidence of hydronephrosis Urology is following the patient. S/p Cystoscopy 11/25 with clot removal and fulguration of bleeding sites. Continue continuous bladder irrigation Renal function improving Yesterday had halicat for shortness of breath - transferred to [facility] [place] and given Bipap, lasix. Good response, and dyspnea improved today. Good urinary output. Will hold IVFs for now, renal function is stable. (2) Gross hematuria ICD Codes: R31.0 - Gross hematuria Status: Acute Plan: Indwelling hernández catheter. Urology consulted s/p Cystoscopy 11/25 (3) Obstructive uropathy ICD Codes: N13.9 - Obstructive and reflux uropathy, unspecified Status: Acute (4) BPH (benign prostatic hyperplasia) ICD Codes: N40.0 - Benign prostatic hyperplasia without lower urinary tract symptoms Status: Acute (5) Hypertension ICD Codes: I10 - Essential (primary) hypertension Status: Acute Plan: Well controlled Sen Blackwell MD Nov 29, 2017 12:12
--- NOTE | 2017-11-29 12:51 | HHI.PR ---
Subjective Remarks Follow-up hematuria/pulmonary infiltrates 11/28/17-patient seen and examined, positive for shortness of breath and currently on 4 L nasal cannula. Hematuria improving 11/29/17-patient seen and examined, overnight he went into respiratory failure for which he was transferred to ICU and treated with Lasix and BiPAP. This morning patient conditions and respiratory symptoms resolve. Case discussed with nephrology. Also discussed with patient's daughter was very unhappy about the care that her father has been receiving. Objective Vitals Vital Signs Date Time Temp Pulse Resp B/P (MAP) Pulse Ox O2 Delivery O2 Flow Rate FiO2 11/29/17 10:00 73 11/29/17 08:00 98.4 62 34 141/75 (97) 99 11/29/17 08:00 62 11/29/17 07:43 100 40 11/29/17 06:00 67 11/29/17 04:00 68 11/29/17 04:00 98.1 68 27 131/75 (93) 100 11/29/17 03:19 100 60 11/29/17 02:00 61 11/29/17 00:20 98.1 73 25 132/89 100 11/29/17 00:04 98.2 63 18 103/57 100 11/29/17 00:00 63 11/29/17 00:00 98.2 63 18 103/57 (72) 100 11/28/17 23:15 80 11/28/17 23:00 78 11/28/17 23:00 100 125/75 (92) 100 11/28/17 22:58 79 11/28/17 22:50 100 70 11/28/17 22:35 88 6.00 50 11/28/17 22:30 98.3 94 30 129/70 (89) 87 11/28/17 22:12 95 Venturi Mask 3.00 28 11/28/17 22:00 76 11/28/17 21:28 96 Nasal Cannula 2.00 11/28/17 21:00 72 11/28/17 20:00 74 11/28/17 19:32 98.0 76 34 129/70 (89) 98 11/28/17 19:30 75 11/28/17 19:00 70 11/28/17 18:49 76 11/28/17 17:00 70 11/28/17 16:14 98.0 68 18 125/68 (87) 94 11/28/17 16:00 68 11/28/17 14:00 60 11/28/17 13:00 66 I/O 11/28/17 11/28/17 11/28/17 11/29/17 11/29/17 11/29/17 07:00 15:00 23:00 07:00 15:00 23:00 Intake Total 5755 ml 1000 ml 600 ml 760 ml Output Total 1750 ml 500 ml 500 ml Balance 4005 ml 1000 ml 100 ml 260 ml Intake Oral 240 ml 600 ml 240 ml IV Total 2515 ml 1000 ml 60 ml Packed Cells 400 ml Blood Product IV Normal Saline Flush 60 ml Other 3000 ml Output Urine Total 1750 ml 500 ml 500 ml # Bowel Movements 0 Result Diagram: 11/29/17 0611/29/17 06 Objective Remarks GENERAL: NAD SKIN: Warm and dry. HEAD: Normocephalic. EYES: No scleral icterus. No injection or drainage. NECK: Supple, trachea midline. No JVD or lymphadenopathy. CARDIOVASCULAR: Regular rate and rhythm without murmurs, gallops, or rubs. RESPIRATORY: Breath sounds decrease bilaterally. No accessory muscle use. GASTROINTESTINAL: Abdomen soft, non-tender, nondistended. MUSCULOSKELETAL: No cyanosis, or edema. BACK: Nontender without obvious deformity. No CVA tenderness. Procedures Catheterization A/P Problem List: (1) Gross hematuria ICD Code: R31.0 - Gross hematuria Status: Acute (2) Obstructive uropathy ICD Code: N13.9 - Obstructive and reflux uropathy, unspecified Status: Acute (3) Cardiomyopathy ICD Code: I42.9 - Cardiomyopathy, unspecified (4) CAD (coronary artery disease) ICD Code: I25.10 - Atherosclerotic heart disease of [place] coronary artery without angina pectoris (5) Hypertension ICD Code: I10 - Essential (primary) hypertension Status: Acute (6) BPH (benign prostatic hyperplasia) ICD Code: N40.0 - Benign prostatic hyperplasia without lower urinary tract symptoms Status: Acute (7) KIARA (acute kidney injury) ICD Code: N17.9 - Acute kidney failure, unspecified Assessment and Plan 82-year-old man with 1. Bladder spasm/Pain giving Hydromorphone 0.25 to 0.5 mg IV every 4 hours as needed pain, Zofran for nausea Melatonin 5 mg daily at bedtime when necessary for insomnia Oxybutynin PRN, IV Tylenol as needed for pain and fever urology specialist following 2. COPD continue oxygen, Bronchodilator, Mucolytic, incentive spirometry 3. STEMI status post PCI LAD stent/V tach resolved/Lactic acidosis Aspirin 162 mg daily, Plavix 75 mg daily, Coreg 3.125 mg BID, Atorvastatin 10 mg daily, Amiodarone 200 mg every 12 hours Echocardiogram LVEF 35-40%. Anterior lateral wall akinesia. Not on Feliciano- In due to renal failure 11/18 Consulted EPS-medical management secondary to the criticality of the patient, plan for possible Life Vest/defibrillator 4. Elevated AST CT abdomen/pelvis earlier this hospitalization revealed right inguinal hernia without signs of strangulation, hiatal hernia, diverticulosis without diverticulitis and BPH 11/19 CT abdomen and pelvis repeated-no change right inguinal hernia containing loops of small and large bowel no mechanical obstruction now new bilateral pleural effusions. BPH 5. Gross Hematuria/Status post cystoscopy and Fulguration/BPH/KIARA Continuous bladder irrigation with Amicar per urology s/p Cystoscopy, evacuation of clots and fulguration of bladder neck region continue Flomax, Leave Ma catheter to gravity drainage for minimum of 1 week after Hematuria fully resolved. 6. Leukocytosis ID specialist Off Cefepime and Diflucan 7. Acute blood loss anemia status post 5 units of PRBCs 8. Respiratory failure Secondary to volume overload, Responded well to BiPAP. Repeat ABG Check BNP and with Lasix when necessary repeat Chest x-ray Mark Horowitz MD Nov 29, 2017 12:51
--- NOTE | 2017-11-29 13:19 | RADRPT ---
EXAM DATE/TIME: 11/29/2017 12:37 [facility] COMPARISON: CT THORAX W/O CONTRAST, November 20, 2017, 22:03. CHEST SINGLE AP, November 28, 2017, 16:09. INDICATIONS : Respiratory failure. MEDICAL HISTORY : Hypertension. BPH SURGICAL HISTORY : Prostatectomy. ENCOUNTER: Subsequent ACUITY: 1 day PAIN SCORE: 0/10 LOCATION: Bilateral chest FINDINGS: Somewhat improved lung exam with improved aeration of the right lower lobe. There is still significan t airspace consolidation involving the right upper lobe and throughout the left hemithorax. Heart siz e appears normal.. CONCLUSION: Improving lung exam with increased aeration of the right lower lobe. The right upper lobe and left he mithorax remains almost completely opacified.. Yaima Naidu MD on November 29, 2017 at 13:16 Board Certified Radiologist. This report was verified electronically.
[2017-11-29] MEDS: ATORVASTATIN 10 MG TAB PO SCH (21:44)
[2017-11-29] MEDS: RESP: ALBUTEROL 2.5 MG/3 ML NEB (PRN) NEB (22:41)
[2017-11-30] VITALS (21 sets, daily range): BP systolic 95–161; BP diastolic 53–85; PULSE 69–86; RESP 20–38; TEMP 97–98.8; O2SAT 92–100
[2017-11-30] MEDS: AMIODARONE 200 MG TAB PO SCH ×2 (05:29→17:00)
[2017-11-30] MEDS: INSULIN ASPART SUPPLEMENTAL SCALE SQ SCH ×4 (07:32→21:00)
[2017-11-30 08:04] LABS: AUTOMATED NEUTROPHIL # 7.9 TH/MM3 (1.8-7.7); BASOPHIL % 0.4 % (0.0-2.0); EOSINOPHIL # 0.2 TH/MM3 (0-0.4); EOSINOPHIL % 1.7 % (0.0-4.0); HEMATOCRIT 31.1 % (39.0-51.0); HEMOGLOBIN 10.5 GM/DL (13.0-17.0); LYMPH % 13.4 % (9.0-44.0); LYMPHOCYTE # 1.4 TH/MM3 (1.0-4.8); MEAN CELL VOLUME 89.9 FL (80.0-100.0); MEAN CORPUSCULAR HEMOGLOBIN 30.3 PG (27.0-34.0); MEAN CORPUSCULAR HGB CONC 33.8 % (32.0-36.0); MEAN PLATELET VOLUME 8.5 FL (7.0-11.0); MONO % 6.4 % (0.0-8.0); MONOCYTE # 0.6 TH/MM3 (0-0.9); NEUT % 78.1 % (16.0-70.0); PLATELET COUNT 234 TH/MM3 (150-450); RED BLOOD COUNT 3.46 MIL/MM3 (4.50-5.90); WHITE BLOOD COUNT 10.1 TH/MM3 (4.0-11.0)
[2017-11-30 08:33] LABS: CREATININE 2.89 MG/DL (0.60-1.30)
[2017-11-30 08:47] LABS: BICARBONATE 23.4 MEQ/L (21.0-32.0); CALCIUM 7.3 MG/DL (8.5-10.1); TOTAL BILIRUBIN ADULT 0.6 MG/DL (0.2-1.0); TOTAL PROTEIN 5.8 GM/DL (6.4-8.2)
--- NOTE | 2017-11-30 08:58 | HHI.NPPN ---
Subjective Renal Problems: Hematuria Renal Failure: Acute History of Present Illness This is an 82-year-old male with a past medical history of hypertension, benign prostatic hypertrophy, history of TURP in 2006, possible history of mild chronic kidney disease with creatinine on presentation of 1.3 and remained in the range of 1.2 to 1.3 most of the time. He presented to the hospital and was admitted on 11/10 because of hematuria. Nephrology was called to see the patient because of elevated BUN and creatinine. The patient has been followed by Urology and the impression was the patient has possible prostatic bleeding and continue the Hernández catheter and irrigation (this was on admission), and continue the Flomax. It was recently found on the ultrasound of the kidneys, that he has intraluminal mass versus ___ _ in the urinary bladder. The creatinine has been gradually going up, and now it is 4.5. The patient has bloody urine and is to continue the bladder irrigation. He has nausea or vomiting, no history of diarrhea. The patient has all the cultures negative, and currently he is getting Diflucan and cefepime. Infectious Disease is following. Additional Remarks Patient is alert. Complains of feeling SOB. Indwelling Hernández catheter intact with irrigation. Urine hematuria improving. (Karen Ch) Review of Systems Respiratory Lungs: SOB (Karen Ch) Cardiovascular Cardiac Remarks denies any CP (Karen Ch) Objective Data Data Vital Signs Date Time Temp Pulse Resp B/P (MAP) Pulse Ox O2 Delivery O2 Flow Rate FiO2 11/30/17 06:00 75 11/30/17 04:30 98 30 11/30/17 04:00 98.6 72 20 161/85 (110) 96 11/30/17 04:00 72 11/30/17 02:00 75 11/30/17 00:40 98 30 11/30/17 00:00 69 11/30/17 00:00 98.8 69 20 137/72 (93) 98 11/29/17 23:03 100 30 11/29/17 22:14 97 Nasal Cannula 3.00 11/29/17 22:00 78 11/29/17 20:00 98.6 72 20 151/72 (98) 100 11/29/17 20:00 72 11/29/17 18:00 71 11/29/17 16:00 98.2 74 24 128/76 (93) 97 11/29/17 16:00 74 11/29/17 14:00 69 11/29/17 12:00 97.9 68 24 124/70 (88) 99 11/29/17 12:00 68 11/29/17 10:00 73 (Karen ChP) -: 11/30/17 0557 11/30/17 0559 Tubes & Lines: Hernández (Karen ChP) Physical Exam General Appearance: No Acute Distress (Karen Ch CORE INSERTER) Pulmonary Resp Exam: Breath Sounds Equal, Rhonchi, Decreased Bases (Karen Ch M. CORE INSERTER) Cardiology CV Exam: Regular (Karen Ch. CORE INSERTER) Gastrointestinal/Abdomen GI Exam: Bowel Sounds Present (Karen Ch CORE INSERTER) Genitourinary Exam: Flank Non-Tender (Karen Ch M. CORE INSERTER) Integumentary Skin Exam: Warm, Dry (Karen Ch. CORE INSERTER) Extremeties Extremities Exam: No Edema (Mee Chne M. CORE INSERTER) Neurologic Neuro Exam: Alert, Awake (Karen Ch. CORE INSERTER) Psychiatric Psych Exam: Appropriate Responses (Karen ChP) Assessment/Plan Discussed Condition With: Patient Assessment Summary: KIARA/Acute Renal Failure Electrolyte Assessment: Hypocalcemia Problem List: (1) KIARA (acute kidney injury) ICD Codes: N17.9 - Acute kidney failure, unspecified Plan: Acute kidney injury possibly related to obstruction or period of hypotension. 11/22: Renal ultrasound. Intraluminal mass versus debris within the urinary bladder completely encasing the Hernández catheter. Mass versus debris within the urinary bladder completely encasing the Hernández catheter. Simple right renal cyst. No evidence of hydronephrosis Urology is following the patient. S/p Cystoscopy 11/25 with clot removal and fulguration of bleeding sites. Indwelling hernández catheter with continuous bladder irrigation Renal function has been improving. Labs pending today. Continues to report SOB. IVF stopped. Will follow BMP and monitor UOP Avoid nephrotoxins (2) Gross hematuria ICD Codes: R31.0 - Gross hematuria Status: Acute Plan: Indwelling hernández catheter. Urology consulted s/p Cystoscopy 11/25 (3) Obstructive uropathy ICD Codes: N13.9 - Obstructive and reflux uropathy, unspecified Status: Acute (4) BPH (benign prostatic hyperplasia) ICD Codes: N40.0 - Benign prostatic hyperplasia without lower urinary tract symptoms Status: Acute (5) Hypertension ICD Codes: I10 - Essential (primary) hypertension Status: Acute Plan: Well controlled (Karen Ch) Problem List: (1) KIARA (acute kidney injury) ICD Codes: N17.9 - Acute kidney failure, unspecified Plan: Acute kidney injury possibly related to obstruction or period of hypotension. 11/22: Renal ultrasound. Intraluminal mass versus debris within the urinary bladder completely encasing the Hernández catheter. Mass versus debris within the urinary bladder completely encasing the Hernández catheter. Simple right renal cyst. No evidence of hydronephrosis Urology is following the patient. S/p Cystoscopy 11/25 with clot removal and fulguration of bleeding sites. Indwelling hernández catheter with continuous bladder irrigation Renal function has been improving. Creatinine continue to improve. Continues to report SOB. IVF stopped. Will follow BMP and monitor UOP. Patient seen and examined, agree with above. Avoid nephrotoxins. Started on Lasix, urine is getting clear. (2) Gross hematuria ICD Codes: R31.0 - Gross hematuria Status: Acute Plan: Indwelling hernández catheter. Urology consulted s/p Cystoscopy 11/25 (3) Obstructive uropathy ICD Codes: N13.9 - Obstructive and reflux uropathy, unspecified Status: Acute (4) BPH (benign prostatic hyperplasia) ICD Codes: N40.0 - Benign prostatic hyperplasia without lower urinary tract symptoms Status: Acute (5) Hypertension ICD Codes: I10 - Essential (primary) hypertension Status: Acute Plan: Well controlled (Ashley Pal MD) Karen Ch Nov 30, 2017 08:58 Ashley Pal MD Nov 30, 2017 18:58
[2017-11-30] MEDS ORDERED: FUROSEMIDE 20 MG/2 ML VIAL IV PUSH SCH (09:00)
[2017-11-30] MEDS: FINASTERIDE 5 MG TAB PO SCH (09:13)
[2017-11-30] MEDS: SODIUM CHLORIDE 0.9% FLUSH 10 ML FLUSH IV FLUSH SCH ×2 (09:13→21:26)
[2017-11-30] MEDS: CLOPIDOGREL 75 MG TAB PO SCH (09:13)
[2017-11-30] MEDS: ASPIRIN 81 MG CHEW TAB PO SCH (09:13)
[2017-11-30] MEDS: PANTOPRAZOLE SOD 40 MG DELAYED RELEASE TAB PO SCH (09:13)
[2017-11-30] MEDS: DOCUSATE SODIUM 50 MG/SENNA 8.6 MG TAB PO SCH ×2 (09:13→21:26)
[2017-11-30] MEDS: CARVEDILOL 3.125 MG TAB PO SCH ×2 (09:13→21:26)
[2017-11-30] MEDS: LACTULOSE SYRUP 20 GM/30 ML CUP PO SCH (09:13)
[2017-11-30] MEDS: POLYETHYLENE GLYCOL 17 GM PKG PO SCH (09:13)
[2017-11-30] MEDS: TAMSULOSIN HCL 0.4 MG CAP PO SCH (10:52)
--- NOTE | 2017-11-30 12:05 | HHI.PR ---
Subjective Remarks Follow-up hematuria/pulmonary infiltrates 11/28/17-patient seen and examined, positive for shortness of breath and currently on 4 L nasal cannula. Hematuria improving 11/29/17-patient seen and examined, overnight he went into respiratory failure for which he was transferred to ICU and treated with Lasix and BiPAP. This morning patient conditions and respiratory symptoms resolve. Case discussed with nephrology. Also discussed with patient's daughter was very unhappy about the care that her father has been receiving. 11/30/17-patient seen and examined, still reports some episode of dyspnea however much improved from 2 days ago. Objective Vitals Vital Signs Date Time Temp Pulse Resp B/P (MAP) Pulse Ox O2 Delivery O2 Flow Rate FiO2 11/30/17 06:00 75 11/30/17 04:30 98 30 11/30/17 04:00 98.6 72 20 161/85 (110) 96 11/30/17 04:00 72 11/30/17 02:00 75 11/30/17 00:40 98 30 11/30/17 00:00 69 11/30/17 00:00 98.8 69 20 137/72 (93) 98 11/29/17 23:03 100 30 11/29/17 22:14 97 Nasal Cannula 3.00 11/29/17 22:00 78 11/29/17 20:00 98.6 72 20 151/72 (98) 100 11/29/17 20:00 72 11/29/17 18:00 71 11/29/17 16:00 98.2 74 24 128/76 (93) 97 11/29/17 16:00 74 11/29/17 14:00 69 I/O 11/29/17 11/29/17 11/29/17 11/30/17 11/30/17 11/30/17 07:00 15:00 23:00 07:00 15:00 23:00 Intake Total 760 ml 720 ml 180 ml Output Total 500 ml 551 ml 650 ml Balance 260 ml 169 ml -470 ml Intake Oral 240 ml 720 ml 180 ml IV Total 60 ml Packed Cells 400 ml Blood Product IV Normal Saline Flush 60 ml Output Urine Total 500 ml 550 ml 650 ml Stool Total 1 ml # Bowel Movements 0 Result Diagram: 11/30/17 0557 11/30/17 0559 Imaging Last Impressions Chest X-Ray 11/29/17 0000 Signed Impressions: Service Date/Time: Wednesday, November 29, 2017 12:37 - CONCLUSION: Improving lung exam with increased aeration of the right lower lobe. The right upper lobe and left hemithorax remains almost completely opacified.. Yaima Naidu MD Abdomen X-Ray 11/25/17 0000 Signed Impressions: Service Date/Time: Saturday, November 25, 2017 11:39 - CONCLUSION: 1. No calcified stones seen. 2. Nonspecific abdominal bowel gas pattern with diffuse gas containing minimally distended loops of small bowel. Jesus Martinez MD Renal Ultrasound 11/22/17 0000 Signed Impressions: Service Date/Time: Wednesday, November 22, 2017 10:23 - CONCLUSION: 1. Intraluminal mass versus debris within the urinary bladder completely encasing the Ma catheter. 2. Simple right renal cyst. 3. No evidence of hydronephrosis. Isaias Hanna MD Chest CT 11/20/17 0000 Signed Impressions: Service Date/Time: Monday, November 20, 2017 22:03 - CONCLUSION: Diffuse confluent airspace opacities throughout both lungs obscuring portions of the right middle lobe. There is associated large bilateral pleural effusions. Jesus Martinez MD Abdomen/Pelvis CT 11/19/17 0819 Signed Impressions: Service Date/Time: November 09:06 - CONCLUSION: 1. The bowel gas pattern remains within normal limits. No mechanical obstruction. 2. There is a right inguinal hernia containing loops of small and large bowel without obstruction. 3. There is a Ma catheter in urinary bladder. However, the balloon on the Ma catheter appears to be inflated within the prostatic urethra. This may need to be adjusted. 4. There continues to be mixed density within the urinary bladder as well as air. This is not significantly changed compared to the prior exam. 5. Diffuse enlargement of the prostate gland. 6. New bilateral pleural effusions as well as bibasilar infiltrates. Amador Leiva MD Objective Remarks GENERAL: NAD SKIN: Warm and dry. HEAD: Normocephalic. EYES: No scleral icterus. No injection or drainage. NECK: Supple, trachea midline. No JVD or lymphadenopathy. CARDIOVASCULAR: Regular rate and rhythm without murmurs, gallops, or rubs. RESPIRATORY: Breath sounds decrease bilaterally. No accessory muscle use. GASTROINTESTINAL: Abdomen soft, non-tender, nondistended. MUSCULOSKELETAL: No cyanosis, or edema. BACK: Nontender without obvious deformity. No CVA tenderness. Procedures Catheterization A/P Problem List: (1) Gross hematuria ICD Code: R31.0 - Gross hematuria Status: Acute (2) Obstructive uropathy ICD Code: N13.9 - Obstructive and reflux uropathy, unspecified Status: Acute (3) Cardiomyopathy ICD Code: I42.9 - Cardiomyopathy, unspecified (4) CAD (coronary artery disease) ICD Code: I25.10 - Atherosclerotic heart disease of [place] coronary artery without angina pectoris (5) Hypertension ICD Code: I10 - Essential (primary) hypertension Status: Acute (6) BPH (benign prostatic hyperplasia) ICD Code: N40.0 - Benign prostatic hyperplasia without lower urinary tract symptoms Status: Acute (7) KIARA (acute kidney injury) ICD Code: N17.9 - Acute kidney failure, unspecified Assessment and Plan 82-year-old man with 1. Bladder spasm/Pain giving Hydromorphone 0.25 to 0.5 mg IV every 4 hours as needed pain, Zofran for nausea Melatonin 5 mg daily at bedtime when necessary for insomnia Oxybutynin PRN, IV Tylenol as needed for pain and fever urology specialist following 2. COPD continue oxygen, Bronchodilator, Mucolytic, incentive spirometry 3. STEMI status post PCI LAD stent/V tach resolved/Lactic acidosis Aspirin 162 mg daily, Plavix 75 mg daily, Coreg 3.125 mg BID, Atorvastatin 10 mg daily, Amiodarone 200 mg every 12 hours Echocardiogram LVEF 35-40%. Anterior lateral wall akinesia. Not on Feliciano- In due to renal failure 11/18 Consulted EPS-medical management secondary to the criticality of the patient, plan for possible Life Vest/defibrillator 4. Elevated AST CT abdomen/pelvis earlier this hospitalization revealed right inguinal hernia without signs of strangulation, hiatal hernia, diverticulosis without diverticulitis and BPH 11/19 CT abdomen and pelvis repeated-no change right inguinal hernia containing loops of small and large bowel no mechanical obstruction now new bilateral pleural effusions. BPH 5. Gross Hematuria/Status post cystoscopy and Fulguration/BPH/KIARA Continuous bladder irrigation with Amicar per urology-however hematuria resolved s/p Cystoscopy, evacuation of clots and fulguration of bladder neck region continue Flomax, Leave Ma catheter to gravity drainage for minimum of 1 week after Hematuria fully resolved. 6. Leukocytosis ID specialist Off Cefepime and Diflucan 7. Acute blood loss anemia status post 5 units of PRBCs 8. Acute on chronic systolic CHF exacerbation Start Lasix 20 mg IV twice a day FELICIANO inhibitor contraindicated secondary to worsening renal function 9. Respiratory failure-improving BiPAP when necessary Mark Horowitz MD Nov 30, 2017 12:05
--- NOTE | 2017-11-30 13:00 | PD.CARD.PN ---
Subjective Subjective Remarks alert, lucid in nad, denies chest pain, dyspnea improving Objective Medications Current Medications Medications (Trade) Dose Ordered Sig/Micheal Route Start Time Stop Time Status Last Admin (Narcan Inj) 0.4 mg UNSCH PRN IV PUSH 11/10/17 14:15 (Flomax) 0.4 mg DAILY PO 11/11/17 09:00 11/30/17 10:52 (Catapres) 0.1 mg Q6H PRN PO 11/10/17 18:15 11/11/17 20:52 Aminocaproic Acid 3000 mg/Sodium Chloride 3,012 ml @ 0 mls/hr UNSCH IRRIGATION 11/13/17 14:15 Future Hold 11/20/17 09:19 (NS Flush) 2 ml UNSCH PRN IV FLUSH 11/13/17 16:45 (NS Flush) 2 ml BID IV FLUSH 11/13/17 21:00 11/30/17 09:13 (Aspirin Chew) 162 mg DAILY PO 11/14/17 09:00 11/30/17 09:13 (Plavix) 75 mg DAILY PO 11/14/17 09:00 11/30/17 09:13 (Coreg) 3.125 mg BID PO 11/13/17 21:00 11/30/17 09:13 (Lipitor) 10 mg HS PO 11/13/17 21:00 11/29/17 21:44 (Zofran Inj) 4 mg Q6HR PRN IV PUSH 11/13/17 19:30 11/26/17 12:34 Aminocaproic Acid 1000 mg/Sodium Chloride 1,004 ml @ 0 mls/hr UNSCH IRRIGATION 11/14/17 17:00 Future Hold (Miralax) 17 gm DAILY PO 11/17/17 11:00 11/30/17 09:13 Miscellaneous Information Patient in critical care unit? Ass... Q361D .XX 11/17/17 20:45 11/17/17 20:45 (Dilaudid Pf Inj) 0.5 mg Q4H PRN IV 11/17/17 21:15 11/26/17 09:40 (Dilaudid Pf Inj) 0.2 mg Q4H PRN IV PUSH 11/17/17 21:15 Acetaminophen 100 ml @ 400 mls/hr Q8HR PRN IV 11/17/17 21:15 (Albuterol Neb) 2.5 mg Q2HR NEB PRN NEB 11/17/17 21:15 11/29/17 22:41 (Lelia-Colace) 1 tab BID PO 11/18/17 09:00 11/30/17 09:13 (Lactulose Liq) 30 ml DAILY PO 11/18/17 09:00 11/30/17 09:13 (Melatonin) 5 mg HS PRN PO 11/18/17 20:00 11/28/17 01:00 (Cordarone) 200 mg Q12H PO 11/26/17 05:00 11/30/17 05:29 (NovoLOG SUPPLEMENTAL SCALE) 1 ACHS SLIDING SCALE SQ 11/21/17 12:00 11/25/17 08:00 (D50w (Vial) Inj) 50 ml UNSCH PRN IV PUSH 11/21/17 09:30 (Glucagon Inj) 1 mg UNSCH PRN OTHER 11/21/17 09:30 (Ditropan) 5 mg Q12H PRN PO 11/22/17 18:00 11/22/17 18:04 (Proscar) 5 mg DAILY PO 11/26/17 09:00 11/30/17 09:13 Acetaminophen 100 ml @ 400 mls/hr Q6H PRN IV 11/26/17 11:30 11/26/17 11:58 (Protonix) 40 mg DAILY PO 11/29/17 09:00 11/30/17 09:13 Sodium Chloride 1,000 ml @ 50 mls/hr Q20H IV 11/28/17 17:00 Future Hold 11/28/17 16:59 (Lasix Inj) 20 mg BID@09,18 IV PUSH 11/30/17 18:00 Vital Signs / I&O Vital Signs Date Time Temp Pulse Resp B/P (MAP) Pulse Ox O2 Delivery O2 Flow Rate FiO2 11/30/17 06:00 75 11/30/17 04:30 98 30 11/30/17 04:00 98.6 72 20 161/85 (110) 96 11/30/17 04:00 72 11/30/17 02:00 75 11/30/17 00:40 98 30 11/30/17 00:00 69 11/30/17 00:00 98.8 69 20 137/72 (93) 98 11/29/17 23:03 100 30 11/29/17 22:14 97 Nasal Cannula 3.00 11/29/17 22:00 78 11/29/17 20:00 98.6 72 20 151/72 (98) 100 11/29/17 20:00 72 11/29/17 18:00 71 11/29/17 16:00 98.2 74 24 128/76 (93) 97 11/29/17 16:00 74 11/29/17 14:00 69 I/O 11/29/17 11/29/17 11/29/17 11/30/17 11/30/17 11/30/17 07:00 15:00 23:00 07:00 15:00 23:00 Intake Total 760 ml 720 ml 180 ml Output Total 500 ml 551 ml 650 ml Balance 260 ml 169 ml -470 ml Intake Oral 240 ml 720 ml 180 ml IV Total 60 ml Packed Cells 400 ml Blood Product IV Normal Saline Flush 60 ml Output Urine Total 500 ml 550 ml 650 ml Stool Total 1 ml # Bowel Movements 0 Physical Exam GENERAL: SKIN: Warm and dry. HEAD: Normocephalic. EYES: No scleral icterus. No injection or drainage. NECK: Supple, trachea midline. No JVD or lymphadenopathy. CARDIOVASCULAR: Regular rate and rhythm without murmurs, gallops, or rubs. RESPIRATORY: Breath sounds equal bilaterally. No accessory muscle use. GASTROINTESTINAL: Abdomen soft, non-tender, nondistended. MUSCULOSKELETAL: No cyanosis, or edema. BACK: Nontender without obvious deformity. No CVA tenderness. Laboratory Laboratory Tests Test 11/30/17 05:57 11/30/17 05:59 White Blood Count 10.1 TH/MM3 Red Blood Count 3.46 MIL/MM3 Hemoglobin 10.5 GM/DL Hematocrit 31.1 % Mean Corpuscular Volume 89.9 FL Mean Corpuscular Hemoglobin 30.3 PG Mean Corpuscular Hemoglobin Concent 33.8 % Red Cell Distribution Width 15.0 % Platelet Count 234 TH/MM3 Mean Platelet Volume 8.5 FL Neutrophils (%) (Auto) 78.1 % Lymphocytes (%) (Auto) 13.4 % Monocytes (%) (Auto) 6.4 % Eosinophils (%) (Auto) 1.7 % Basophils (%) (Auto) 0.4 % Neutrophils # (Auto) 7.9 TH/MM3 Lymphocytes # (Auto) 1.4 TH/MM3 Monocytes # (Auto) 0.6 TH/MM3 Eosinophils # (Auto) 0.2 TH/MM3 Basophils # (Auto) 0.0 TH/MM3 CBC Comment DIFF FINAL Differential Comment Blood Urea Nitrogen 30 MG/DL Creatinine 2.89 MG/DL Random Glucose 76 MG/DL Total Protein 5.8 GM/DL Albumin 2.0 GM/DL Calcium Level 7.3 MG/DL Alkaline Phosphatase 81 U/L Aspartate Amino Transf (AST/SGOT) 23 U/L Alanine Aminotransferase (ALT/SGPT) 17 U/L Total Bilirubin 0.6 MG/DL Sodium Level 147 MEQ/L Potassium Level 3.8 MEQ/L Chloride Level 112 MEQ/L Carbon Dioxide Level 23.4 MEQ/L Anion Gap 12 MEQ/L Estimat Glomerular Filtration Rate 21 ML/MIN Protein Corrected Calcium 8.0 MG/DL Assessment and Plan Problem List: (1) Cardiomyopathy ICD Codes: I42.9 - Cardiomyopathy, unspecified (2) CAD (coronary artery disease) ICD Codes: I25.10 - Atherosclerotic heart disease of [place] coronary artery without angina pectoris (3) Hematuria ICD Codes: R31.9 - Hematuria, unspecified Status: Acute (4) Gross hematuria ICD Codes: R31.0 - Gross hematuria Status: Acute Assessment and Plan 1.) CAD - pod# 17 primary pci, assymptomatic, continue aspirin, plavix, lipitor , coreg, dov held due ubstructive uopathy, arf and hypotension, transfuse prn to keep hgb> 9.0, d/w nurse, hematuria improving 2.) Wide complex tachycardia - discussed in detail with family, patient, Dr Yap , Dr Del Rio, DR Hernandez, nurse at bedside; on iv amio, f/u Dr Jackson; patient assymptomatic during event, trop continues to trend down, continue amiodarone 3.) Hypoxia - supsect chf excacerbated by volume overload related to arf, improving, f/u bnp in am, d/w daughter and patient in detail at the bedside Nathanael Kelley MD Nov 30, 2017 13:00
--- NOTE | 2017-11-30 13:08 | HHI.PR ---
Subjective Patient symptoms today Pt seen and examined. No complaints. Urine clear. Creatinine improving. Objective Vital Signs Vital Signs Date Time Temp Pulse Resp B/P (MAP) Pulse Ox O2 Delivery O2 Flow Rate FiO2 11/30/17 06:00 75 11/30/17 04:30 98 30 11/30/17 04:00 98.6 72 20 161/85 (110) 96 11/30/17 04:00 72 11/30/17 02:00 75 11/30/17 00:40 98 30 11/30/17 00:00 69 11/30/17 00:00 98.8 69 20 137/72 (93) 98 11/29/17 23:03 100 30 11/29/17 22:14 97 Nasal Cannula 3.00 11/29/17 22:00 78 11/29/17 20:00 98.6 72 20 151/72 (98) 100 11/29/17 20:00 72 11/29/17 18:00 71 11/29/17 16:00 98.2 74 24 128/76 (93) 97 11/29/17 16:00 74 11/29/17 14:00 69 Intake & Output 11/30/17 11/30/17 07:00 19:00 Intake Total 180 ml Output Total 650 ml Balance -470 ml Intake Oral 180 ml Output Urine Total 650 ml Result Diagram: 11/30/17 0557 11/30/17 0559 Objective Remarks CBI running at a slow rate with clear output Bladder not distended 11/30 Abd:soft,nt,nd Hernández with clear urine. Medications and IVs Current Medications Medications (Trade) Dose Ordered Sig/Micheal Route Start Time Stop Time Status Last Admin (Narcan Inj) 0.4 mg UNSCH PRN IV PUSH 11/10/17 14:15 (Flomax) 0.4 mg DAILY PO 11/11/17 09:00 11/30/17 10:52 (Catapres) 0.1 mg Q6H PRN PO 11/10/17 18:15 11/11/17 20:52 Aminocaproic Acid 3000 mg/Sodium Chloride 3,012 ml @ 0 mls/hr UNSCH IRRIGATION 11/13/17 14:15 Future Hold 11/20/17 09:19 (NS Flush) 2 ml UNSCH PRN IV FLUSH 11/13/17 16:45 (NS Flush) 2 ml BID IV FLUSH 11/13/17 21:00 11/30/17 09:13 (Aspirin Chew) 162 mg DAILY PO 11/14/17 09:00 11/30/17 09:13 (Plavix) 75 mg DAILY PO 11/14/17 09:00 11/30/17 09:13 (Coreg) 3.125 mg BID PO 11/13/17 21:00 11/30/17 09:13 (Lipitor) 10 mg HS PO 11/13/17 21:00 11/29/17 21:44 (Zofran Inj) 4 mg Q6HR PRN IV PUSH 11/13/17 19:30 11/26/17 12:34 Aminocaproic Acid 1000 mg/Sodium Chloride 1,004 ml @ 0 mls/hr UNSCH IRRIGATION 11/14/17 17:00 Future Hold (Miralax) 17 gm DAILY PO 11/17/17 11:00 11/30/17 09:13 Miscellaneous Information Patient in critical care unit? Ass... Q361D .XX 11/17/17 20:45 11/17/17 20:45 (Dilaudid Pf Inj) 0.5 mg Q4H PRN IV 11/17/17 21:15 11/26/17 09:40 (Dilaudid Pf Inj) 0.2 mg Q4H PRN IV PUSH 11/17/17 21:15 Acetaminophen 100 ml @ 400 mls/hr Q8HR PRN IV 11/17/17 21:15 (Albuterol Neb) 2.5 mg Q2HR NEB PRN NEB 11/17/17 21:15 11/29/17 22:41 (Lelia-Colace) 1 tab BID PO 11/18/17 09:00 11/30/17 09:13 (Lactulose Liq) 30 ml DAILY PO 11/18/17 09:00 11/30/17 09:13 (Melatonin) 5 mg HS PRN PO 11/18/17 20:00 11/28/17 01:00 (Cordarone) 200 mg Q12H PO 11/26/17 05:00 11/30/17 05:29 (NovoLOG SUPPLEMENTAL SCALE) 1 ACHS SLIDING SCALE SQ 11/21/17 12:00 11/25/17 08:00 (D50w (Vial) Inj) 50 ml UNSCH PRN IV PUSH 11/21/17 09:30 (Glucagon Inj) 1 mg UNSCH PRN OTHER 11/21/17 09:30 (Ditropan) 5 mg Q12H PRN PO 11/22/17 18:00 11/22/17 18:04 (Proscar) 5 mg DAILY PO 11/26/17 09:00 11/30/17 09:13 Acetaminophen 100 ml @ 400 mls/hr Q6H PRN IV 11/26/17 11:30 11/26/17 11:58 (Protonix) 40 mg DAILY PO 11/29/17 09:00 11/30/17 09:13 Sodium Chloride 1,000 ml @ 50 mls/hr Q20H IV 11/28/17 17:00 Future Hold 11/28/17 16:59 (Lasix Inj) 20 mg BID@18 IV PUSH 11/30/17 18:00 Assessment and Plan Assessment and Plan -Discussed with patient's family his current clinical status and hematuria with large bladder clot noted within the bladder -At this time, the patient's family is very hesitant to under go any further surgical intervention and they do understand the large bladder clot will not be able to be removed with surgery -In addition, given his recent CA and cardiac stents, Plavix is not able to be held -Therefore his current clinical situation may not improve, even with intervention to remove the large bladder clot as he may continue to bleed -Patient will need urgent/emergent cysto and clot evacuation if the catheter does not drain and his bladder becomes distended and painful. Family does understand this and would like to leave him as is for as long as possible -Alternatively, bilateral nephrostomy tubes may be placed to divert urine from the bladder. This may not be a good option given the Plavix -No surgical intervention at this time. Continue management with CBI and hand irrigation as needed -Will refer care back to [facility], Dr. Lee, tomorrow am 11/23/2017 Discussed ongoing management with Amicar CBI. Discussed that it may take up to 2 weeks for the urine to totally clear as patient is presently on anticoagulation therapy. We will irrigate CBI catheter as needed Once CBI discontinued, patient will require an indwelling Hernández catheter for an extended period of time to allow any residual clot material to dissolve. 11/25/2017 Persistent gross hematuria with bladder distention despite catheter change and irrigation We will keep patient n.p.o. We will bring patient to the cystoscopy suite for cystoscopy, clot evacuation and fulguration of any ongoing bleeding sites Risks and benefits discussed with patient and family 11/26/2017 Postop day #1 status post clot evacuation and fulguration to bladder neck region CBI running with clear output Wean off CBI as urine clears 11/27/2017 Resolving hematuria with CBI running at a slow rate Continue to titrate off CBI Suggest leaving Hernández catheter to gravity drainage for minimum of 1 week after hematuria fully resolved 11/30 82 y.o male with gross hematuria s/p clot evacuation and fulguration s/p CA with stenting on Plavix/ASA Urine is now clear Maintain hernández catheter OOB/Ambulate Encourage PO intake Rafita Lee DO Nov 30, 2017 13:08
[2017-11-30] MEDS: FUROSEMIDE 20 MG/2 ML VIAL IV PUSH SCH (17:12)
[2017-11-30] MEDS: ATORVASTATIN 10 MG TAB PO SCH (21:26)
[2017-12-01] VITALS (14 sets, daily range): BP systolic 93–147; BP diastolic 51–82; PULSE 62–80; RESP 20–32; TEMP 98.5–98.8; O2SAT 92–100
[2017-12-01] MEDS: AMIODARONE 200 MG TAB PO SCH ×2 (05:00→16:40)
[2017-12-01] MEDS: RESP: ALBUTEROL 2.5 MG/3 ML NEB (PRN) NEB (05:48)
[2017-12-01] MEDS: FUROSEMIDE 20 MG/2 ML VIAL IV PUSH SCH ×2 (06:23→17:39)
[2017-12-01 06:29] LABS: BICARBONATE 27.7 MEQ/L (21.0-32.0); CREATININE 2.88 MG/DL (0.60-1.30)
[2017-12-01] MEDS ORDERED: FUROSEMIDE 20 MG/2 ML VIAL IV PUSH ONE (06:45)
[2017-12-01 07:03] LABS: CALCIUM-PROTEIN CORRECTED 7.8 MG/DL (8.5-10.1); TOTAL PROTEIN 5.6 GM/DL (6.4-8.2)
[2017-12-01] MEDS: INSULIN ASPART SUPPLEMENTAL SCALE SQ SCH ×4 (08:00→21:00)
[2017-12-01] MEDS: SODIUM CHLORIDE 0.9% FLUSH 10 ML FLUSH IV FLUSH SCH ×2 (08:01→21:20)
[2017-12-01] MEDS: CARVEDILOL 3.125 MG TAB PO SCH ×2 (08:01→21:19)
[2017-12-01] MEDS: LACTULOSE SYRUP 20 GM/30 ML CUP PO SCH (08:01)
[2017-12-01] MEDS: ASPIRIN 81 MG CHEW TAB PO SCH (08:01)
[2017-12-01] MEDS: PANTOPRAZOLE SOD 40 MG DELAYED RELEASE TAB PO SCH (08:01)
[2017-12-01] MEDS: TAMSULOSIN HCL 0.4 MG CAP PO SCH (08:01)
[2017-12-01] MEDS: FINASTERIDE 5 MG TAB PO SCH (08:02)
[2017-12-01] MEDS: CLOPIDOGREL 75 MG TAB PO SCH (08:02)
[2017-12-01] MEDS: POLYETHYLENE GLYCOL 17 GM PKG PO SCH (08:02)
[2017-12-01] MEDS: DOCUSATE SODIUM 50 MG/SENNA 8.6 MG TAB PO SCH ×2 (08:02→21:19)
--- NOTE | 2017-12-01 08:40 | RADRPT ---
EXAM DATE/TIME: 12/01/2017 08:15 [place] COMPARISON: CHEST SINGLE AP, November 29, 2017, 12:37. INDICATIONS : Congestive heart failure. MEDICAL HISTORY : Hypertension. BPH. SURGICAL HISTORY : Prostatectomy. ENCOUNTER: Subsequent ACUITY: 2 weeks PAIN SCORE: 0/10 LOCATION: Bilateral chest FINDINGS: A single view of the chest demonstrates persistent, stable diffuse infiltrate in the left hemithorax with worsening pulmonary parenchymal infiltrates on the right. Possible associated effusion on the le ft blunting the costophrenic angle. Heart size is normal. Degenerative spurring of the dorsal spine. CONCLUSION: 1. Stable diffuse pulmonary parenchymal infiltrate in the left with worsening infiltrate on the right . 2. Possible developing left sided effusion with blunting the costophrenic angles. Gautam Marks MD on December 01, 2017 at 8:35 Board Certified Radiologist. This report was verified electronically.
--- NOTE | 2017-12-01 11:53 | HHI.PR ---
Subjective Patient symptoms today Pt seen and examined. Urine clear. Objective Vital Signs Vital Signs Date Time Temp Pulse Resp B/P (MAP) Pulse Ox O2 Delivery O2 Flow Rate FiO2 12/01/17 09:05 95 Nasal Cannula 3.00 12/01/17 06:00 71 12/01/17 04:00 98.6 73 24 147/82 (103) 93 12/01/17 04:00 73 12/01/17 02:00 69 12/01/17 00:00 78 12/01/17 00:00 98.6 78 32 145/80 (101) 99 11/30/17 22:00 83 11/30/17 21:00 98 Nasal Cannula 2.00 11/30/17 20:00 86 11/30/17 20:00 98.1 86 36 131/64 (86) 92 11/30/17 18:00 74 11/30/17 17:48 97 Nasal Cannula 3.50 11/30/17 17:00 80 11/30/17 16:00 98.0 76 27 95/53 (67) 97 11/30/17 16:00 76 11/30/17 15:00 78 11/30/17 14:00 75 11/30/17 13:00 74 11/30/17 12:00 98.0 73 38 141/75 (97) 99 11/30/17 12:00 73 Intake & Output 12/01/17 12/01/17 07:00 19:00 Intake Total 60 ml Output Total 1300 ml Balance -1240 ml Intake Oral 60 ml Output Urine Total 1300 ml Result Diagram: 11/30/17 0557 12/01/17 0405 Imaging Last 24 hours Impressions Chest X-Ray 12/01/17 0000 Signed Impressions: Service Date/Time: Friday, December 01, 2017 08:15 - CONCLUSION: 1. Stable diffuse pulmonary parenchymal infiltrate in the left with worsening infiltrate on the right. 2. Possible developing left sided effusion with blunting the costophrenic angles. Gautam Marks MD Objective Remarks CBI running at a slow rate with clear output Bladder not distended 11/30 Abd:soft,nt,nd Hernández with clear urine. 12/01 Abd:soft,nt,nd Ext: neg Hernández: urine clear Medications and IVs Current Medications Medications (Trade) Dose Ordered Sig/Micheal Route Start Time Stop Time Status Last Admin (Narcan Inj) 0.4 mg UNSCH PRN IV PUSH 11/10/17 14:15 (Flomax) 0.4 mg DAILY PO 11/11/17 09:00 12/01/17 08:01 (Catapres) 0.1 mg Q6H PRN PO 11/10/17 18:15 11/11/17 20:52 Aminocaproic Acid 3000 mg/Sodium Chloride 3,012 ml @ 0 mls/hr UNSCH IRRIGATION 11/13/17 14:15 Future Hold 11/20/17 09:19 (NS Flush) 2 ml UNSCH PRN IV FLUSH 11/13/17 16:45 (NS Flush) 2 ml BID IV FLUSH 11/13/17 21:00 12/01/17 08:01 (Aspirin Chew) 162 mg DAILY PO 11/14/17 09:00 12/01/17 08:01 (Plavix) 75 mg DAILY PO 11/14/17 09:00 12/01/17 08:02 (Coreg) 3.125 mg BID PO 11/13/17 21:00 12/01/17 08:01 (Lipitor) 10 mg HS PO 11/13/17 21:00 11/30/17 21:26 (Zofran Inj) 4 mg Q6HR PRN IV PUSH 11/13/17 19:30 11/26/17 12:34 Aminocaproic Acid 1000 mg/Sodium Chloride 1,004 ml @ 0 mls/hr UNSCH IRRIGATION 11/14/17 17:00 Future Hold (Miralax) 17 gm DAILY PO 11/17/17 11:00 12/01/17 08:02 Miscellaneous Information Patient in critical care unit? Ass... Q361D .XX 11/17/17 20:45 11/17/17 20:45 (Dilaudid Pf Inj) 0.5 mg Q4H PRN IV 11/17/17 21:15 11/26/17 09:40 (Dilaudid Pf Inj) 0.2 mg Q4H PRN IV PUSH 11/17/17 21:15 Acetaminophen 100 ml @ 400 mls/hr Q8HR PRN IV 11/17/17 21:15 (Albuterol Neb) 2.5 mg Q2HR NEB PRN NEB 11/17/17 21:15 12/01/17 05:48 (Lelia-Colace) 1 tab BID PO 11/18/17 09:00 12/01/17 08:02 (Lactulose Liq) 30 ml DAILY PO 11/18/17 09:00 12/01/17 08:01 (Melatonin) 5 mg HS PRN PO 11/18/17 20:00 11/28/17 01:00 (Cordarone) 200 mg Q12H PO 11/26/17 05:00 12/01/17 05:00 (NovoLOG SUPPLEMENTAL SCALE) 1 ACHS SLIDING SCALE SQ 11/21/17 12:00 11/30/17 17:00 (D50w (Vial) Inj) 50 ml UNSCH PRN IV PUSH 11/21/17 09:30 (Glucagon Inj) 1 mg UNSCH PRN OTHER 11/21/17 09:30 (Ditropan) 5 mg Q12H PRN PO 11/22/17 18:00 11/22/17 18:04 (Proscar) 5 mg DAILY PO 11/26/17 09:00 12/01/17 08:02 Acetaminophen 100 ml @ 400 mls/hr Q6H PRN IV 11/26/17 11:30 11/26/17 11:58 (Protonix) 40 mg DAILY PO 11/29/17 09:00 12/01/17 08:01 Sodium Chloride 1,000 ml @ 50 mls/hr Q20H IV 11/28/17 17:00 Future Hold 11/28/17 16:59 (Lasix Inj) 20 mg BID@,18 IV PUSH 11/30/17 18:00 12/01/17 06:23 Assessment and Plan Assessment and Plan -Discussed with patient's family his current clinical status and hematuria with large bladder clot noted within the bladder -At this time, the patient's family is very hesitant to under go any further surgical intervention and they do understand the large bladder clot will not be able to be removed with surgery -In addition, given his recent [place] and cardiac stents, Plavix is not able to be held -Therefore his current clinical situation may not improve, even with intervention to remove the large bladder clot as he may continue to bleed -Patient will need urgent/emergent cysto and clot evacuation if the catheter does not drain and his bladder becomes distended and painful. Family does understand this and would like to leave him as is for as long as possible -Alternatively, bilateral nephrostomy tubes may be placed to divert urine from the bladder. This may not be a good option given the Plavix -No surgical intervention at this time. Continue management with CBI and hand irrigation as needed -Will refer care back to [facility], Dr. Lee, tomorrow am 11/23/2017 Discussed ongoing management with Amicar CBI. Discussed that it may take up to 2 weeks for the urine to totally clear as patient is presently on anticoagulation therapy. We will irrigate CBI catheter as needed Once CBI discontinued, patient will require an indwelling Hernández catheter for an extended period of time to allow any residual clot material to dissolve. 11/25/2017 Persistent gross hematuria with bladder distention despite catheter change and irrigation We will keep patient n.p.o. We will bring patient to the cystoscopy suite for cystoscopy, clot evacuation and fulguration of any ongoing bleeding sites Risks and benefits discussed with patient and family 11/26/2017 Postop day #1 status post clot evacuation and fulguration to bladder neck region CBI running with clear output Wean off CBI as urine clears 11/27/2017 Resolving hematuria with CBI running at a slow rate Continue to titrate off CBI Suggest leaving Hernández catheter to gravity drainage for minimum of 1 week after hematuria fully resolved 11/30 82 y.o male with gross hematuria s/p clot evacuation and fulguration s/p LA with stenting on Plavix/ASA Urine is now clear Maintain hernández catheter OOB/Ambulate Encourage PO intake 12/01 82 y.o male with gross hematuria s/p clot evacuation and fulguration s/p LA with stenting on Plavix/ASA Urine is now clear; plug CBI port OOB/Ambulate PT and Dietary input appreciated Rafita Lee DO Dec 01, 2017 11:53
--- NOTE | 2017-12-01 12:35 | HHI.PR ---
Subjective Remarks Follow-up hematuria/pulmonary infiltrates 11/28/17-patient seen and examined, positive for shortness of breath and currently on 4 L nasal cannula. Hematuria improving 11/29/17-patient seen and examined, overnight he went into respiratory failure for which he was transferred to ICU and treated with Lasix and BiPAP. This morning patient conditions and respiratory symptoms resolve. Case discussed with nephrology. Also discussed with patient's daughter was very unhappy about the care that her father has been receiving. 11/30/17-patient seen and examined, still reports some episode of dyspnea however much improved from 2 days ago. 12/01/17-patient seen and examined, states he is feeling better and denies any significant shortness of breath. Daughter by the bedside Objective Vitals Vital Signs Date Time Temp Pulse Resp B/P (MAP) Pulse Ox O2 Delivery O2 Flow Rate FiO2 12/01/17 09:05 95 Nasal Cannula 3.00 12/01/17 08:00 98.8 69 20 136/67 (90) 95 12/01/17 06:00 71 12/01/17 04:00 98.6 73 24 147/82 (103) 93 12/01/17 04:00 73 12/01/17 02:00 69 12/01/17 00:00 78 12/01/17 00:00 98.6 78 32 145/80 (101) 99 11/30/17 22:00 83 11/30/17 21:00 98 Nasal Cannula 2.00 11/30/17 20:00 86 11/30/17 20:00 98.1 86 36 131/64 (86) 92 11/30/17 18:00 74 11/30/17 17:48 97 Nasal Cannula 3.50 11/30/17 17:00 80 11/30/17 16:00 98.0 76 27 95/53 (67) 97 11/30/17 16:00 76 11/30/17 15:00 78 11/30/17 14:00 75 11/30/17 13:00 74 I/O 11/30/17 11/30/17 11/30/17 12/01/17 12/01/17 12/01/17 07:00 15:00 23:00 07:00 15:00 23:00 Intake Total 180 ml 500 ml 60 ml Output Total 650 ml 2100 ml 1300 ml Balance -470 ml -1600 ml -1240 ml Intake Oral 180 ml 500 ml 60 ml Output Urine Total 650 ml 2100 ml 1300 ml Result Diagram: 11/30/17 0557 12/01/17 0405 Imaging Last Impressions Chest X-Ray 12/01/17 0000 Signed Impressions: Service Date/Time: Friday, December 01, 2017 08:15 - CONCLUSION: 1. Stable diffuse pulmonary parenchymal infiltrate in the left with worsening infiltrate on the right. 2. Possible developing left sided effusion with blunting the costophrenic angles. Gautam Marks MD Abdomen X-Ray 11/25/17 0000 Signed Impressions: Service Date/Time: Saturday, November 25, 2017 11:39 - CONCLUSION: 1. No calcified stones seen. 2. Nonspecific abdominal bowel gas pattern with diffuse gas containing minimally distended loops of small bowel. Jesus Martinez MD Renal Ultrasound 11/22/17 0000 Signed Impressions: Service Date/Time: Wednesday, November 22, 2017 10:23 - CONCLUSION: 1. Intraluminal mass versus debris within the urinary bladder completely encasing the Ma catheter. 2. Simple right renal cyst. 3. No evidence of hydronephrosis. Isaias Hanna MD Chest CT 11/20/17 0000 Signed Impressions: Service Date/Time: Monday, November 20, 2017 22:03 - CONCLUSION: Diffuse confluent airspace opacities throughout both lungs obscuring portions of the right middle lobe. There is associated large bilateral pleural effusions. Jesus Martinez MD Abdomen/Pelvis CT 11/19/17 0819 Signed Impressions: Service Date/Time: November 09:06 - CONCLUSION: 1. The bowel gas pattern remains within normal limits. No mechanical obstruction. 2. There is a right inguinal hernia containing loops of small and large bowel without obstruction. 3. There is a Ma catheter in urinary bladder. However, the balloon on the Ma catheter appears to be inflated within the prostatic urethra. This may need to be adjusted. 4. There continues to be mixed density within the urinary bladder as well as air. This is not significantly changed compared to the prior exam. 5. Diffuse enlargement of the prostate gland. 6. New bilateral pleural effusions as well as bibasilar infiltrates. Amador Leiva MD Objective Remarks GENERAL: NAD SKIN: Warm and dry. HEAD: Normocephalic. EYES: No scleral icterus. No injection or drainage. NECK: Supple, trachea midline. No JVD or lymphadenopathy. CARDIOVASCULAR: Regular rate and rhythm without murmurs, gallops, or rubs. RESPIRATORY: Breath sounds decrease bilaterally. No accessory muscle use. GASTROINTESTINAL: Abdomen soft, non-tender, nondistended. MUSCULOSKELETAL: No cyanosis, or edema. BACK: Nontender without obvious deformity. No CVA tenderness. Procedures Catheterization A/P Problem List: (1) Gross hematuria ICD Code: R31.0 - Gross hematuria Status: Acute (2) Obstructive uropathy ICD Code: N13.9 - Obstructive and reflux uropathy, unspecified Status: Acute (3) Cardiomyopathy ICD Code: I42.9 - Cardiomyopathy, unspecified (4) CAD (coronary artery disease) ICD Code: I25.10 - Atherosclerotic heart disease of [place] coronary artery without angina pectoris (5) Hypertension ICD Code: I10 - Essential (primary) hypertension Status: Acute (6) BPH (benign prostatic hyperplasia) ICD Code: N40.0 - Benign prostatic hyperplasia without lower urinary tract symptoms Status: Acute (7) KIARA (acute kidney injury) ICD Code: N17.9 - Acute kidney failure, unspecified Assessment and Plan 82-year-old man with 1. Bladder spasm/Pain-Resolved Melatonin 5 mg daily at bedtime when necessary for insomnia Oxybutynin PRN, IV Tylenol as needed urology specialist following 2. COPD continue oxygen, Bronchodilator, Mucolytic, incentive spirometry 3. STEMI status post PCI LAD stent/V tach resolved/Lactic acidosis Aspirin 162 mg daily, Plavix 75 mg daily, Coreg 3.125 mg BID, Atorvastatin 10 mg daily, Amiodarone 200 mg every 12 hours Echocardiogram LVEF 35-40%. Anterior lateral wall akinesia. Not on Feliciano- In due to renal failure 11/18 Consulted EPS-medical management secondary to the criticality of the patient, plan for possible Life Vest/defibrillator 4. Elevated AST CT abdomen/pelvis earlier this hospitalization revealed right inguinal hernia without signs of strangulation, hiatal hernia, diverticulosis without diverticulitis and BPH 11/19 CT abdomen and pelvis repeated-no change right inguinal hernia containing loops of small and large bowel no mechanical obstruction now new bilateral pleural effusions. BPH 5. Gross Hematuria-Resolved/Status post cystoscopy and Fulguration/BPH/KIARA d/c bladder irrigation with Amicar per urology s/p Cystoscopy, evacuation of clots and fulguration of bladder neck region continue Flomax, Leave Ma catheter to gravity drainage for minimum of 1 week after Hematuria fully resolved. 6. Leukocytosis ID specialist Off Cefepime and Diflucan 7. Acute blood loss anemia status post 5 units of PRBCs 8. Acute on chronic systolic CHF exacerbation Continue Lasix 20 mg IV twice a day FELICIANO inhibitor contraindicated secondary to worsening renal function 9. Respiratory failure-improving BiPAP when necessary 10. Left Pleural effusion Check Chest US and consider thoracentesis accordingly Mark Horowitz MD Dec 01, 2017 12:35
--- NOTE | 2017-12-01 14:47 | HHI.NPPN ---
Subjective Renal Problems: Hematuria Renal Failure: Acute History of Present Illness This is an 82-year-old male with a past medical history of hypertension, benign prostatic hypertrophy, history of TURP in 2006, possible history of mild chronic kidney disease with creatinine on presentation of 1.3 and remained in the range of 1.2 to 1.3 most of the time. He presented to the hospital and was admitted on 11/10 because of hematuria. Nephrology was called to see the patient because of elevated BUN and creatinine. The patient has been followed by Urology and the impression was the patient has possible prostatic bleeding and continue the Hernández catheter and irrigation (this was on admission), and continue the Flomax. It was recently found on the ultrasound of the kidneys, that he has intraluminal mass versus ___ _ in the urinary bladder. The creatinine has been gradually going up, and now it is 4.5. The patient has bloody urine and is to continue the bladder irrigation. He has nausea or vomiting, no history of diarrhea. The patient has all the cultures negative, and currently he is getting Diflucan and cefepime. Infectious Disease is following. Additional Remarks Patient is alert, OOB in chair. without complaints (Karen Ch) Review of Systems Respiratory Respiratory Remarks denies SOB (Karen Ch) Cardiovascular Cardiac Remarks denies any CP (Karen Ch) Gastrointestinal GI Remarks denies abdominal pain (Karen Ch) Objective Data Data Vital Signs Date Time Temp Pulse Resp B/P (MAP) Pulse Ox O2 Delivery O2 Flow Rate FiO2 12/01/17 09:05 95 Nasal Cannula 3.00 12/01/17 08:00 98.8 69 20 136/67 (90) 95 12/01/17 06:00 71 12/01/17 04:00 98.6 73 24 147/82 (103) 93 12/01/17 04:00 73 12/01/17 02:00 69 12/01/17 00:00 78 12/01/17 00:00 98.6 78 32 145/80 (101) 99 11/30/17 22:00 83 11/30/17 21:00 98 Nasal Cannula 2.00 11/30/17 20:00 86 11/30/17 20:00 98.1 86 36 131/64 (86) 92 11/30/17 18:00 74 11/30/17 17:48 97 Nasal Cannula 3.50 11/30/17 17:00 80 11/30/17 16:00 98.0 76 27 95/53 (67) 97 11/30/17 16:00 76 11/30/17 15:00 78 (Karen ChP) -: 11/30/17 0557 12/01/17 0405 Tubes & Lines: Hernández (Karen Ch CHRONIC SPECIALIST) Physical Exam General Appearance: No Acute Distress, Comfortable (Mee Chne M. CHRONIC SPECIALIST) Throat Throat Exam: Oral Mucosa [place] & Moist (Mee Chne M. CHRONIC SPECIALIST) Pulmonary Resp Exam: Breath Sounds Equal, No Distress (Mee Chne M. CHRONIC SPECIALIST) Cardiology CV Exam: Regular (Mee Chne M. CHRONIC SPECIALIST) Gastrointestinal/Abdomen GI Exam: Bowel Sounds Present (Karen Ch CHRONIC SPECIALIST) Genitourinary Exam: Flank Non-Tender (Mee Chne M. CHRONIC SPECIALIST) Integumentary Skin Exam: Warm, Dry (Mee Chne M. CHRONIC SPECIALIST) Extremeties Extremities Exam: No Edema (Mee Chne M. CHRONIC SPECIALIST) Neurologic Neuro Exam: Alert, Awake (Mee Chne M. CHRONIC SPECIALIST) Psychiatric Psych Exam: Appropriate Responses (Karen Ch. CHRONIC SPECIALIST) Assessment/Plan Discussed Condition With: Patient Assessment Summary: KIARA/Acute Renal Failure Electrolyte Assessment: Hypocalcemia Problem List: (1) KIARA (acute kidney injury) ICD Codes: N17.9 - Acute kidney failure, unspecified Plan: Acute kidney injury possibly related to obstruction or period of hypotension. 11/22: Renal ultrasound. Intraluminal mass versus debris within the urinary bladder completely encasing the Hernández catheter. Mass versus debris within the urinary bladder completely encasing the Hernández catheter. Simple right renal cyst. No evidence of hydronephrosis Urology is following the patient. S/p Cystoscopy 11/25 with clot removal and fulguration of bleeding sites. Plan Creatinine essentially unchanged at 2.88 Continue lasix BID Maintain indwelling hernández catheter Will follow BMP and monitor UOP. (2) Gross hematuria ICD Codes: R31.0 - Gross hematuria Status: Acute Plan: Indwelling hernández catheter. Urology consulted s/p Cystoscopy 11/25 (3) Obstructive uropathy ICD Codes: N13.9 - Obstructive and reflux uropathy, unspecified Status: Acute (4) BPH (benign prostatic hyperplasia) ICD Codes: N40.0 - Benign prostatic hyperplasia without lower urinary tract symptoms Status: Acute (5) Hypertension ICD Codes: I10 - Essential (primary) hypertension Status: Acute Plan: Well controlled (Karen Ch) Problem List: (1) KIARA (acute kidney injury) ICD Codes: N17.9 - Acute kidney failure, unspecified Plan: Acute kidney injury possibly related to obstruction or period of hypotension. 11/22: Renal ultrasound. Intraluminal mass versus debris within the urinary bladder completely encasing the Hernández catheter. Mass versus debris within the urinary bladder completely encasing the Hernández catheter. Simple right renal cyst. No evidence of hydronephrosis Urology is following the patient. S/p Cystoscopy 11/25 with clot removal and fulguration of bleeding sites. Plan Creatinine essentially unchanged at 2.88 Continue lasix BID Maintain indwelling hernández catheter Will follow BMP and monitor UOP. Patient seen and examined, agree with above. Creatinine is stable at 2.8. (2) Gross hematuria ICD Codes: R31.0 - Gross hematuria Status: Acute Plan: Indwelling hernández catheter. Urology consulted s/p Cystoscopy 11/25 (3) Obstructive uropathy ICD Codes: N13.9 - Obstructive and reflux uropathy, unspecified Status: Acute (4) BPH (benign prostatic hyperplasia) ICD Codes: N40.0 - Benign prostatic hyperplasia without lower urinary tract symptoms Status: Acute (5) Hypertension ICD Codes: I10 - Essential (primary) hypertension Status: Acute Plan: Well controlled (Ashley Pal MD) Karen Ch Dec 01, 2017 14:47 Ashley Pal MD Dec 01, 2017 18:19
--- NOTE | 2017-12-01 15:27 | PD.CARD.PN ---
Subjective Subjective Remarks alert, lucid in nad, denies chest pain, dyspnea improving Objective Medications Current Medications Medications (Trade) Dose Ordered Sig/Micheal Route Start Time Stop Time Status Last Admin (Narcan Inj) 0.4 mg UNSCH PRN IV PUSH 11/10/17 14:15 (Flomax) 0.4 mg DAILY PO 11/11/17 09:00 12/01/17 08:01 (Catapres) 0.1 mg Q6H PRN PO 11/10/17 18:15 11/11/17 20:52 Aminocaproic Acid 3000 mg/Sodium Chloride 3,012 ml @ 0 mls/hr UNSCH IRRIGATION 11/13/17 14:15 Future Hold 11/20/17 09:19 (NS Flush) 2 ml UNSCH PRN IV FLUSH 11/13/17 16:45 (NS Flush) 2 ml BID IV FLUSH 11/13/17 21:00 12/01/17 08:01 (Aspirin Chew) 162 mg DAILY PO 11/14/17 09:00 12/01/17 08:01 (Plavix) 75 mg DAILY PO 11/14/17 09:00 12/01/17 08:02 (Coreg) 3.125 mg BID PO 11/13/17 21:00 12/01/17 08:01 (Lipitor) 10 mg HS PO 11/13/17 21:00 11/30/17 21:26 (Zofran Inj) 4 mg Q6HR PRN IV PUSH 11/13/17 19:30 11/26/17 12:34 Aminocaproic Acid 1000 mg/Sodium Chloride 1,004 ml @ 0 mls/hr UNSCH IRRIGATION 11/14/17 17:00 Future Hold (Miralax) 17 gm DAILY PO 11/17/17 11:00 12/01/17 08:02 Miscellaneous Information Patient in critical care unit? Ass... Q361D .XX 11/17/17 20:45 11/17/17 20:45 (Dilaudid Pf Inj) 0.5 mg Q4H PRN IV 11/17/17 21:15 11/26/17 09:40 (Dilaudid Pf Inj) 0.2 mg Q4H PRN IV PUSH 11/17/17 21:15 Acetaminophen 100 ml @ 400 mls/hr Q8HR PRN IV 11/17/17 21:15 (Albuterol Neb) 2.5 mg Q2HR NEB PRN NEB 11/17/17 21:15 12/01/17 05:48 (Lelia-Colace) 1 tab BID PO 11/18/17 09:00 12/01/17 08:02 (Lactulose Liq) 30 ml DAILY PO 11/18/17 09:00 12/01/17 08:01 (Melatonin) 5 mg HS PRN PO 11/18/17 20:00 11/28/17 01:00 (Cordarone) 200 mg Q12H PO 11/26/17 05:00 12/01/17 05:00 (NovoLOG SUPPLEMENTAL SCALE) 1 ACHS SLIDING SCALE SQ 11/21/17 12:00 11/30/17 17:00 (D50w (Vial) Inj) 50 ml UNSCH PRN IV PUSH 11/21/17 09:30 (Glucagon Inj) 1 mg UNSCH PRN OTHER 11/21/17 09:30 (Ditropan) 5 mg Q12H PRN PO 11/22/17 18:00 11/22/17 18:04 (Proscar) 5 mg DAILY PO 11/26/17 09:00 12/01/17 08:02 Acetaminophen 100 ml @ 400 mls/hr Q6H PRN IV 11/26/17 11:30 11/26/17 11:58 (Protonix) 40 mg DAILY PO 11/29/17 09:00 12/01/17 08:01 Sodium Chloride 1,000 ml @ 50 mls/hr Q20H IV 11/28/17 17:00 Future Hold 11/28/17 16:59 (Lasix Inj) 20 mg BID@09,18 IV PUSH 11/30/17 18:00 12/01/17 06:23 Vital Signs / I&O Vital Signs Date Time Temp Pulse Resp B/P (MAP) Pulse Ox O2 Delivery O2 Flow Rate FiO2 12/01/17 09:05 95 Nasal Cannula 3.00 12/01/17 08:00 98.8 69 20 136/67 (90) 95 12/01/17 06:00 71 12/01/17 04:00 98.6 73 24 147/82 (103) 93 12/01/17 04:00 73 12/01/17 02:00 69 12/01/17 00:00 78 12/01/17 00:00 98.6 78 32 145/80 (101) 99 11/30/17 22:00 83 11/30/17 21:00 98 Nasal Cannula 2.00 11/30/17 20:00 86 11/30/17 20:00 98.1 86 36 131/64 (86) 92 11/30/17 18:00 74 11/30/17 17:48 97 Nasal Cannula 3.50 11/30/17 17:00 80 11/30/17 16:00 98.0 76 27 95/53 (67) 97 11/30/17 16:00 76 I/O 11/30/17 11/30/17 11/30/17 12/01/17 12/01/17 12/01/17 07:00 15:00 23:00 07:00 15:00 23:00 Intake Total 180 ml 500 ml 60 ml Output Total 650 ml 2100 ml 1300 ml Balance -470 ml -1600 ml -1240 ml Intake Oral 180 ml 500 ml 60 ml Output Urine Total 650 ml 2100 ml 1300 ml Physical Exam GENERAL: SKIN: Warm and dry. HEAD: Normocephalic. EYES: No scleral icterus. No injection or drainage. NECK: Supple, trachea midline. No JVD or lymphadenopathy. CARDIOVASCULAR: Regular rate and rhythm without murmurs, gallops, or rubs. RESPIRATORY: Breath sounds equal bilaterally. No accessory muscle use. GASTROINTESTINAL: Abdomen soft, non-tender, nondistended. MUSCULOSKELETAL: No cyanosis, or edema. BACK: Nontender without obvious deformity. No CVA tenderness. Laboratory Laboratory Tests Test 12/01/17 04:05 Blood Urea Nitrogen 27 MG/DL Creatinine 2.88 MG/DL Random Glucose 101 MG/DL Total Protein 5.6 GM/DL Calcium Level 7.0 MG/DL Sodium Level 143 MEQ/L Potassium Level 3.6 MEQ/L Chloride Level 108 MEQ/L Carbon Dioxide Level 27.7 MEQ/L Anion Gap 7 MEQ/L Estimat Glomerular Filtration Rate 21 ML/MIN Protein Corrected Calcium 7.8 MG/DL B-Type Natriuretic Peptide 2437 PG/ML Imaging Last 24 hours Impressions Chest X-Ray 12/01/17 0000 Signed Impressions: Service Date/Time: Friday, December 01, 2017 08:15 - CONCLUSION: 1. Stable diffuse pulmonary parenchymal infiltrate in the left with worsening infiltrate on the right. 2. Possible developing left sided effusion with blunting the costophrenic angles. Gautam Marks MD Assessment and Plan Problem List: (1) Cardiomyopathy ICD Codes: I42.9 - Cardiomyopathy, unspecified (2) CAD (coronary artery disease) ICD Codes: I25.10 - Atherosclerotic heart disease of [place] coronary artery without angina pectoris (3) Hematuria ICD Codes: R31.9 - Hematuria, unspecified Status: Acute (4) Gross hematuria ICD Codes: R31.0 - Gross hematuria Status: Acute Assessment and Plan 1.) CAD - pod# 18 primary pci, assymptomatic, continue aspirin, plavix, lipitor , coreg, dov held due ubstructive uopathy, arf and hypotension, transfuse prn to keep hgb> 9.0, d/w nurse, hematuria improving 2.) Wide complex tachycardia - discussed in detail with family, patient, Dr Yap , Dr Del Rio, DR Hernandez, nurse at bedside; on iv amio, f/u Dr Jackson; patient assymptomatic during event, trop continues to trend down, continue amiodarone 3.) Hypoxia - supsect chf excacerbated by volume overload related to arf, u/o and bnp improving, negative fluid balance, f/u bnp in am, d/w daughter and patient in detail at the bedside 4.) Cardiomyopathy - continue coreg, dov held due to arf Nathanael Kelley MD Dec 01, 2017 15:27
--- NOTE | 2017-12-01 15:29 | RADRPT ---
EXAM DATE/TIME: 12/01/2017 14:36 [facility] COMPARISON: CHEST SINGLE AP, December 01, 2017, 8:15. INDICATIONS : Evaluate for pleural effusion. Shortness of breath. MEDICAL HISTORY : Hypertension. Dyspnea. Hematuria. SURGICAL HISTORY : Prostatectomy. ENCOUNTER: Initial ACUITY: 1 day PAIN SCORE: 0/10 LOCATION: Left chest MEASUREMENTS: SKIN TO PARIETAL PLEURA: 2.6 cm SKIN TO MAX SAFE DEPTH: 5.2 cm ESTIMATED FLUID VOLUME: 384.5 cc FLUID COMPOSITION: simple FINDINGS: Pleural effusion as above. CONCLUSION: Left-sided pleural effusion. Amador Leiva MD on December 01, 2017 at 15:26 Board Certified Radiologist. This report was verified electronically.
[2017-12-01] MEDS ORDERED: SODIUM CHLORIDE 0.65% NASAL SPRAY 45 ML BTL NASAL PRN (18:15)
[2017-12-01] MEDS: ATORVASTATIN 10 MG TAB PO SCH (21:20)
[2017-12-01] MEDS: MELATONIN 5 MG TAB PO PRN (21:20)
[2017-12-02] VITALS (12 sets, daily range): BP systolic 90–139; BP diastolic 55–71; PULSE 58–66; RESP 16–24; TEMP 97.4–98.5; O2SAT 93–99
[2017-12-02] MEDS: AMIODARONE 200 MG TAB PO SCH ×2 (06:19→17:00)
[2017-12-02] MEDS: INSULIN ASPART SUPPLEMENTAL SCALE SQ SCH ×4 (08:00→20:57)
[2017-12-02 08:06] LABS: HEMATOCRIT 29.5 % (39.0-51.0); MEAN CELL VOLUME 89.7 FL (80.0-100.0); MEAN CORPUSCULAR HEMOGLOBIN 30.2 PG (27.0-34.0); MEAN CORPUSCULAR HGB CONC 33.7 % (32.0-36.0); MEAN PLATELET VOLUME 8.5 FL (7.0-11.0); PLATELET COUNT 204 TH/MM3 (150-450); RED BLOOD COUNT 3.29 MIL/MM3 (4.50-5.90); RED CELL DISTRIBUTION WIDTH 15.1 % (11.6-17.2); WHITE BLOOD COUNT 8.2 TH/MM3 (4.0-11.0)
[2017-12-02] MEDS: RESP: ALBUTEROL 2.5 MG/3 ML NEB (PRN) NEB (08:10)
[2017-12-02 08:39] LABS: BICARBONATE 29.4 MEQ/L (21.0-32.0); CALCIUM 6.9 MG/DL (8.5-10.1); CREATININE 2.69 MG/DL (0.60-1.30); MAGNESIUM 1.5 MG/DL (1.5-2.5)
[2017-12-02] MEDS: ASPIRIN 81 MG CHEW TAB PO SCH (09:00)
[2017-12-02] MEDS: DOCUSATE SODIUM 50 MG/SENNA 8.6 MG TAB PO SCH ×2 (09:00→20:57)
[2017-12-02] MEDS: FINASTERIDE 5 MG TAB PO SCH (09:00)
[2017-12-02] MEDS: CARVEDILOL 3.125 MG TAB PO SCH ×2 (09:00→20:57)
[2017-12-02 09:05] LABS: CALCIUM-PROTEIN CORRECTED 7.8 MG/DL (8.5-10.1); TOTAL PROTEIN 5.4 GM/DL (6.4-8.2)
--- NOTE | 2017-12-02 09:22 | HHI.NPPN ---
Subjective Renal Problems: Hematuria Renal Failure: Acute History of Present Illness This is an 82-year-old male with a past medical history of hypertension, benign prostatic hypertrophy, history of TURP in 2006, possible history of mild chronic kidney disease with creatinine on presentation of 1.3 and remained in the range of 1.2 to 1.3 most of the time. He presented to the hospital and was admitted on 11/10 because of hematuria. Nephrology was called to see the patient because of elevated BUN and creatinine. The patient has been followed by Urology and the impression was the patient has possible prostatic bleeding and continue the Hernández catheter and irrigation (this was on admission), and continue the Flomax. It was recently found on the ultrasound of the kidneys, that he has intraluminal mass versus ___ _ in the urinary bladder. The creatinine has been gradually going up, and now it is 4.5. The patient has bloody urine and is to continue the bladder irrigation. He has nausea or vomiting, no history of diarrhea. The patient has all the cultures negative, and currently he is getting Diflucan and cefepime. Infectious Disease is following. Additional Remarks Patient is alert, without complaints. Urine with hematuria. Reports mild SOB (Karen Ch) Review of Systems Respiratory Lungs: SOB (Karen Ch) Cardiovascular Cardiac Remarks denies any CP (Karen Ch) Gastrointestinal GI Remarks denies abdominal pain (Karen Ch) Objective Data Data Vital Signs Date Time Temp Pulse Resp B/P (MAP) Pulse Ox O2 Delivery O2 Flow Rate FiO2 12/02/17 06:00 63 12/02/17 04:00 59 12/02/17 04:00 98.3 59 24 100/57 (71) 93 12/02/17 02:00 62 12/02/17 00:00 98.5 60 19 120/59 (79) 98 12/02/17 00:00 60 12/01/17 22:00 65 12/01/17 21:45 98 Nasal Cannula 3.00 12/01/17 20:00 98.7 65 20 109/56 (73) 100 12/01/17 20:00 65 12/01/17 18:00 68 12/01/17 16:00 98.5 70 23 111/61 (78) 92 12/01/17 16:00 70 12/01/17 14:00 67 12/01/17 12:00 98.6 62 20 93/51 (65) 97 12/01/17 12:00 62 12/01/17 10:00 80 (Karen Ch) -: 12/02/17 0559 12/02/17 0559 Imaging Last Impressions Chest X-Ray 12/01/17 0000 Signed Impressions: Service Date/Time: Friday, December 01, 2017 08:15 - CONCLUSION: 1. Stable diffuse pulmonary parenchymal infiltrate in the left with worsening infiltrate on the right. 2. Possible developing left sided effusion with blunting the costophrenic angles. Gautam Marks MD Chest Ultrasound 12/01/17 0000 Signed Impressions: Service Date/Time: Friday, December 01, 2017 14:36 - CONCLUSION: Left-sided pleural effusion. Amador Leiva MD Abdomen X-Ray 11/25/17 0000 Signed Impressions: Service Date/Time: Saturday, November 25, 2017 11:39 - CONCLUSION: 1. No calcified stones seen. 2. Nonspecific abdominal bowel gas pattern with diffuse gas containing minimally distended loops of small bowel. Jesus Martinez MD Renal Ultrasound 11/22/17 0000 Signed Impressions: Service Date/Time: Wednesday, November 22, 2017 10:23 - CONCLUSION: 1. Intraluminal mass versus debris within the urinary bladder completely encasing the Hernández catheter. 2. Simple right renal cyst. 3. No evidence of hydronephrosis. Isaias Hanna MD Chest CT 11/20/17 0000 Signed Impressions: Service Date/Time: Monday, November 20, 2017 22:03 - CONCLUSION: Diffuse confluent airspace opacities throughout both lungs obscuring portions of the right middle lobe. There is associated large bilateral pleural effusions. Jesus Martinez MD Abdomen/Pelvis CT 11/19/17 0819 Signed Impressions: Service Date/Time: November 09:06 - CONCLUSION: 1. The bowel gas pattern remains within normal limits. No mechanical obstruction. 2. There is a right inguinal hernia containing loops of small and large bowel without obstruction. 3. There is a Hernández catheter in urinary bladder. However, the balloon on the Hernández catheter appears to be inflated within the prostatic urethra. This may need to be adjusted. 4. There continues to be mixed density within the urinary bladder as well as air. This is not significantly changed compared to the prior exam. 5. Diffuse enlargement of the prostate gland. 6. New bilateral pleural effusions as well as bibasilar infiltrates. Amador Leiva MD Tubes & Lines: Hernández (GellermannMeeKaren M. CUSTOMER LOGISTICS MANAGER) Physical Exam General Appearance: No Acute Distress, Comfortable (GellermannKaren M. CUSTOMER LOGISTICS MANAGER) Throat Throat Exam: Oral Mucosa [place] & Moist (Gellermann,Karen M. CUSTOMER LOGISTICS MANAGER) Pulmonary Resp Exam: Breath Sounds Equal, No Distress, Decreased Bases (GellermannKaren M. CUSTOMER LOGISTICS MANAGER) Cardiology CV Exam: Regular (GellermannKaren M. CUSTOMER LOGISTICS MANAGER) Gastrointestinal/Abdomen GI Exam: Bowel Sounds Present (GellermannKaren M. CUSTOMER LOGISTICS MANAGER) Genitourinary Exam: Flank Non-Tender Remarks Indwelling hernández. Hematuria present (GellermannMeeKaren M. CUSTOMER LOGISTICS MANAGER) Integumentary Skin Exam: Warm, Dry (GellermannKaren M. CUSTOMER LOGISTICS MANAGER) Extremeties Extremities Exam: No Edema (Gellermann,Karen M. CUSTOMER LOGISTICS MANAGER) Neurologic Neuro Exam: Alert, Awake (GellermannKaern M. CUSTOMER LOGISTICS MANAGER) Psychiatric Psych Exam: Appropriate Responses (GellermannKaren M. CUSTOMER LOGISTICS MANAGER) Assessment/Plan Discussed Condition With: Patient Assessment Summary: KIARA/Acute Renal Failure Electrolyte Assessment: Hypocalcemia Problem List: (1) KIARA (acute kidney injury) ICD Codes: N17.9 - Acute kidney failure, unspecified Plan: Acute kidney injury possibly related to obstruction or period of hypotension. 11/22: Renal ultrasound. Intraluminal mass versus debris within the urinary bladder completely encasing the Hernández catheter. Mass versus debris within the urinary bladder completely encasing the Hernández catheter. Simple right renal cyst. No evidence of hydronephrosis Urology is following the patient. S/p Cystoscopy 11/25 with clot removal and fulguration of bleeding sites. Plan Creatinine slightly improving at 2.69 today Continue lasix BID Maintain indwelling hernández catheter Hypokalemia at 3.2 replacement given Hypocalcemia replacement added. Will follow BMP and monitor UOP. (2) Gross hematuria ICD Codes: R31.0 - Gross hematuria Status: Acute Plan: Indwelling hernández catheter. Urology consulted s/p Cystoscopy 11/25 (3) Obstructive uropathy ICD Codes: N13.9 - Obstructive and reflux uropathy, unspecified Status: Acute (4) BPH (benign prostatic hyperplasia) ICD Codes: N40.0 - Benign prostatic hyperplasia without lower urinary tract symptoms Status: Acute (5) Hypertension ICD Codes: I10 - Essential (primary) hypertension Status: Acute Plan: Well controlled (Karen Ch) Problem List: (1) KIARA (acute kidney injury) ICD Codes: N17.9 - Acute kidney failure, unspecified Plan: Acute kidney injury possibly related to obstruction or period of hypotension. 11/22: Renal ultrasound. Intraluminal mass versus debris within the urinary bladder completely encasing the Hernández catheter. Mass versus debris within the urinary bladder completely encasing the Hernández catheter. Simple right renal cyst. No evidence of hydronephrosis Urology is following the patient. S/p Cystoscopy 11/25 with clot removal and fulguration of bleeding sites. Plan Creatinine slightly improving at 2.69 today Continue Lasix BID Maintain indwelling Hernández catheter Hypokalemia at 3.2 replacement given Hypocalcemia replacement added. Will follow BMP and monitor UOP. Patient seen and examined, agree with above. Creatinine continue to improve. (2) Gross hematuria ICD Codes: R31.0 - Gross hematuria Status: Acute Plan: Indwelling hernández catheter. Urology consulted s/p Cystoscopy 11/25 (3) Obstructive uropathy ICD Codes: N13.9 - Obstructive and reflux uropathy, unspecified Status: Acute (4) BPH (benign prostatic hyperplasia) ICD Codes: N40.0 - Benign prostatic hyperplasia without lower urinary tract symptoms Status: Acute (5) Hypertension ICD Codes: I10 - Essential (primary) hypertension Status: Acute Plan: Well controlled (Ashley Pal MD) Karen Ch Dec 02, 2017 09:22 Ashley Pal MD Dec 02, 2017 22:49
[2017-12-02] MEDS ORDERED: POTASSIUM CHLORIDE 20 MEQ CONTROLLED RELEASE TAB PO ONE (09:30)
[2017-12-02] MEDS: PANTOPRAZOLE SOD 40 MG DELAYED RELEASE TAB PO SCH (09:54)
[2017-12-02] MEDS: LACTULOSE SYRUP 20 GM/30 ML CUP PO SCH (09:54)
[2017-12-02] MEDS: POLYETHYLENE GLYCOL 17 GM PKG PO SCH (09:54)
[2017-12-02] MEDS: CLOPIDOGREL 75 MG TAB PO SCH (09:55)
[2017-12-02] MEDS: TAMSULOSIN HCL 0.4 MG CAP PO SCH (09:55)
[2017-12-02] MEDS: FUROSEMIDE 20 MG/2 ML VIAL IV PUSH SCH ×2 (09:56→19:21)
[2017-12-02] MEDS: SODIUM CHLORIDE 0.9% FLUSH 10 ML FLUSH IV FLUSH SCH ×2 (09:56→20:58)
--- NOTE | 2017-12-02 10:34 | PD.CARD.PN ---
Subjective Subjective Remarks alert, lucid in nad, denies chest pain, dyspnea improving Objective Medications Current Medications Medications (Trade) Dose Ordered Sig/Micheal Route Start Time Stop Time Status Last Admin (Narcan Inj) 0.4 mg UNSCH PRN IV PUSH 11/10/17 14:15 (Flomax) 0.4 mg DAILY PO 11/11/17 09:00 12/02/17 09:55 (Catapres) 0.1 mg Q6H PRN PO 11/10/17 18:15 11/11/17 20:52 Aminocaproic Acid 3000 mg/Sodium Chloride 3,012 ml @ 0 mls/hr UNSCH IRRIGATION 11/13/17 14:15 Future Hold 11/20/17 09:19 (NS Flush) 2 ml UNSCH PRN IV FLUSH 11/13/17 16:45 (NS Flush) 2 ml BID IV FLUSH 11/13/17 21:00 12/02/17 09:56 (Aspirin Chew) 162 mg DAILY PO 11/14/17 09:00 12/01/17 08:01 (Plavix) 75 mg DAILY PO 11/14/17 09:00 12/02/17 09:55 (Coreg) 3.125 mg BID PO 11/13/17 21:00 12/01/17 21:19 (Lipitor) 10 mg HS PO 11/13/17 21:00 12/01/17 21:20 (Zofran Inj) 4 mg Q6HR PRN IV PUSH 11/13/17 19:30 11/26/17 12:34 Aminocaproic Acid 1000 mg/Sodium Chloride 1,004 ml @ 0 mls/hr UNSCH IRRIGATION 11/14/17 17:00 Future Hold (Miralax) 17 gm DAILY PO 11/17/17 11:00 12/02/17 09:54 Miscellaneous Information Patient in critical care unit? Ass... Q361D .XX 11/17/17 20:45 11/17/17 20:45 (Dilaudid Pf Inj) 0.5 mg Q4H PRN IV 11/17/17 21:15 11/26/17 09:40 (Dilaudid Pf Inj) 0.2 mg Q4H PRN IV PUSH 11/17/17 21:15 Acetaminophen 100 ml @ 400 mls/hr Q8HR PRN IV 11/17/17 21:15 (Albuterol Neb) 2.5 mg Q2HR NEB PRN NEB 11/17/17 21:15 12/02/17 08:10 (Lelia-Colace) 1 tab BID PO 11/18/17 09:00 12/01/17 21:19 (Lactulose Liq) 30 ml DAILY PO 11/18/17 09:00 12/02/17 09:54 (Melatonin) 5 mg HS PRN PO 11/18/17 20:00 12/01/17 21:20 (Cordarone) 200 mg Q12H PO 11/26/17 05:00 12/02/17 06:19 (NovoLOG SUPPLEMENTAL SCALE) 1 ACHS SLIDING SCALE SQ 11/21/17 12:00 11/30/17 17:00 (D50w (Vial) Inj) 50 ml UNSCH PRN IV PUSH 11/21/17 09:30 (Glucagon Inj) 1 mg UNSCH PRN OTHER 11/21/17 09:30 (Ditropan) 5 mg Q12H PRN PO 11/22/17 18:00 11/22/17 18:04 (Proscar) 5 mg DAILY PO 11/26/17 09:00 12/01/17 08:02 Acetaminophen 100 ml @ 400 mls/hr Q6H PRN IV 11/26/17 11:30 11/26/17 11:58 (Protonix) 40 mg DAILY PO 11/29/17 09:00 12/02/17 09:54 Sodium Chloride 1,000 ml @ 50 mls/hr Q20H IV 11/28/17 17:00 Future Hold 11/28/17 16:59 (Lasix Inj) 20 mg BID@09,18 IV PUSH 11/30/17 18:00 12/02/17 09:56 ([place] Fransico [place]) 2 spray Q6H PRN NASAL 12/01/17 18:15 (Oscal) 1,000 mg BID PO 12/02/17 21:00 (KCl) 20 meq DAILY PO 12/03/17 09:00 Vital Signs / I&O Vital Signs Date Time Temp Pulse Resp B/P (MAP) Pulse Ox O2 Delivery O2 Flow Rate FiO2 12/02/17 06:00 63 12/02/17 04:00 59 12/02/17 04:00 98.3 59 24 100/57 (71) 93 12/02/17 02:00 62 12/02/17 00:00 98.5 60 19 120/59 (79) 98 12/02/17 00:00 60 12/01/17 22:00 65 12/01/17 21:45 98 Nasal Cannula 3.00 12/01/17 20:00 98.7 65 20 109/56 (73) 100 12/01/17 20:00 65 12/01/17 18:00 68 12/01/17 16:00 98.5 70 23 111/61 (78) 92 12/01/17 16:00 70 12/01/17 14:00 67 12/01/17 12:00 98.6 62 20 93/51 (65) 97 12/01/17 12:00 62 I/O 12/01/17 12/01/17 12/01/17 12/02/17 12/02/17 12/02/17 07:00 15:00 23:00 07:00 15:00 23:00 Intake Total 60 ml 450 ml 60 ml Output Total 1300 ml 1625 ml 1200 ml Balance -1240 ml -1175 ml -1140 ml Intake Oral 60 ml 450 ml 60 ml Output Urine Total 1300 ml 1625 ml 1200 ml Physical Exam GENERAL: SKIN: Warm and dry. HEAD: Normocephalic. EYES: No scleral icterus. No injection or drainage. NECK: Supple, trachea midline. No JVD or lymphadenopathy. CARDIOVASCULAR: Regular rate and rhythm without murmurs, gallops, or rubs. RESPIRATORY: Breath sounds equal bilaterally. No accessory muscle use. GASTROINTESTINAL: Abdomen soft, non-tender, nondistended. MUSCULOSKELETAL: No cyanosis, or edema. BACK: Nontender without obvious deformity. No CVA tenderness. Laboratory Laboratory Tests Test 12/01/17 17:50 12/02/17 05:59 Blood Gas Puncture Site RT RADIAL Blood Gas Patient Temperature 98.6 Blood Gas HCO3 28 mmol/L Blood Gas Base Excess 5.2 mmol/L Blood Gas Oxygen Saturation 94 % Arterial Blood pH 7.53 Arterial Blood Partial Pressure CO2 34 mmHg Arterial Blood Partial Pressure O2 76 mmHg Arterial Blood Oxygen Content 12.3 Vol % Arterial Blood Carboxyhemoglobin 1.5 % Arterial Blood Methemoglobin 1.1 % Blood Gas Hemoglobin 9.3 G/DL Oxygen Delivery Device NASAL CANNULA Blood Gas Liter Flow 2 L/M White Blood Count 8.2 TH/MM3 Red Blood Count 3.29 MIL/MM3 Hemoglobin 10.0 GM/DL Hematocrit 29.5 % Mean Corpuscular Volume 89.7 FL Mean Corpuscular Hemoglobin 30.2 PG Mean Corpuscular Hemoglobin Concent 33.7 % Red Cell Distribution Width 15.1 % Platelet Count 204 TH/MM3 Mean Platelet Volume 8.5 FL Blood Urea Nitrogen 27 MG/DL Creatinine 2.69 MG/DL Random Glucose 89 MG/DL Total Protein 5.4 GM/DL Calcium Level 6.9 MG/DL Magnesium Level 1.5 MG/DL Sodium Level 144 MEQ/L Potassium Level 3.2 MEQ/L Chloride Level 106 MEQ/L Carbon Dioxide Level 29.4 MEQ/L Anion Gap 9 MEQ/L Estimat Glomerular Filtration Rate 23 ML/MIN Protein Corrected Calcium 7.8 MG/DL B-Type Natriuretic Peptide 1726 PG/ML Assessment and Plan Problem List: (1) Cardiomyopathy ICD Codes: I42.9 - Cardiomyopathy, unspecified (2) CAD (coronary artery disease) ICD Codes: I25.10 - Atherosclerotic heart disease of [place] coronary artery without angina pectoris (3) Hematuria ICD Codes: R31.9 - Hematuria, unspecified Status: Acute (4) Gross hematuria ICD Codes: R31.0 - Gross hematuria Status: Acute Assessment and Plan 1.) CAD - pod# 19 primary pci, assymptomatic, continue aspirin, plavix, lipitor , coreg, dov held due ubstructive uopathy, arf and hypotension, transfuse prn to keep hgb> 9.0, d/w nurse, hematuria improving 2.) Wide complex tachycardia - discussed in detail with family, patient, Dr Yap , Dr Del Rio, DR Hernandez, nurse at bedside; on iv amio, f/u Dr Jackson; patient assymptomatic during event, trop continues to trend down, continue amiodarone 3.) Hypoxia - supsect chf excacerbated by volume overload related to arf, u/o and bnp improving, negative fluid balance, f/u bnp in am, d/w daughter and patient in detail at the bedside 4.) Cardiomyopathy - continue coreg, dov held due to arf, u/o good, in negative fluid balance over past 48 hrs, weight decreased from 75 kg to 74 kg Nathanael Kelley MD Dec 02, 2017 10:34
--- NOTE | 2017-12-02 12:11 | HHI.PR ---
Subjective Remarks Follow-up hematuria/pulmonary infiltrates 11/28/17-patient seen and examined, positive for shortness of breath and currently on 4 L nasal cannula. Hematuria improving 11/29/17-patient seen and examined, overnight he went into respiratory failure for which he was transferred to ICU and treated with Lasix and BiPAP. This morning patient conditions and respiratory symptoms resolve. Case discussed with nephrology. Also discussed with patient's daughter was very unhappy about the care that her father has been receiving. 11/30/17-patient seen and examined, still reports some episode of dyspnea however much improved from 2 days ago. 12/01/17-patient seen and examined, states he is feeling better and denies any significant shortness of breath. Daughter by the bedside 12/02/17-patient seen and examined, chest US with Left sided PLEURAL EFFUSION, states he's feeling better and vitals stable Objective Vitals Vital Signs Date Time Temp Pulse Resp B/P (MAP) Pulse Ox O2 Delivery O2 Flow Rate FiO2 12/02/17 06:00 63 12/02/17 04:00 59 12/02/17 04:00 98.3 59 24 100/57 (71) 93 12/02/17 02:00 62 12/02/17 00:00 98.5 60 19 120/59 (79) 98 12/02/17 00:00 60 12/01/17 22:00 65 12/01/17 21:45 98 Nasal Cannula 3.00 12/01/17 20:00 98.7 65 20 109/56 (73) 100 12/01/17 20:00 65 12/01/17 18:00 68 12/01/17 16:00 98.5 70 23 111/61 (78) 92 12/01/17 16:00 70 12/01/17 14:00 67 I/O 12/01/17 12/01/17 12/01/17 12/02/17 12/02/17 12/02/17 07:00 15:00 23:00 07:00 15:00 23:00 Intake Total 60 ml 450 ml 60 ml Output Total 1300 ml 1625 ml 1200 ml Balance -1240 ml -1175 ml -1140 ml Intake Oral 60 ml 450 ml 60 ml Output Urine Total 1300 ml 1625 ml 1200 ml Result Diagram: 12/02/17 0559 12/02/17 0559 Imaging Last Impressions Chest X-Ray 12/01/17 0000 Signed Impressions: Service Date/Time: Friday, December 01, 2017 08:15 - CONCLUSION: 1. Stable diffuse pulmonary parenchymal infiltrate in the left with worsening infiltrate on the right. 2. Possible developing left sided effusion with blunting the costophrenic angles. Gautam Marks MD Chest Ultrasound 12/01/17 0000 Signed Impressions: Service Date/Time: Friday, December 01, 2017 14:36 - CONCLUSION: Left-sided pleural effusion. Amador Leiva MD Abdomen X-Ray 11/25/17 0000 Signed Impressions: Service Date/Time: Saturday, November 25, 2017 11:39 - CONCLUSION: 1. No calcified stones seen. 2. Nonspecific abdominal bowel gas pattern with diffuse gas containing minimally distended loops of small bowel. Jesus Martinez MD Renal Ultrasound 11/22/17 0000 Signed Impressions: Service Date/Time: Wednesday, November 22, 2017 10:23 - CONCLUSION: 1. Intraluminal mass versus debris within the urinary bladder completely encasing the Ma catheter. 2. Simple right renal cyst. 3. No evidence of hydronephrosis. Isaias Hanna MD Chest CT 11/20/17 0000 Signed Impressions: Service Date/Time: Monday, November 20, 2017 22:03 - CONCLUSION: Diffuse confluent airspace opacities throughout both lungs obscuring portions of the right middle lobe. There is associated large bilateral pleural effusions. Jesus Martinez MD Abdomen/Pelvis CT 11/19/17 0819 Signed Impressions: Service Date/Time: November 09:06 - CONCLUSION: 1. The bowel gas pattern remains within normal limits. No mechanical obstruction. 2. There is a right inguinal hernia containing loops of small and large bowel without obstruction. 3. There is a Ma catheter in urinary bladder. However, the balloon on the Ma catheter appears to be inflated within the prostatic urethra. This may need to be adjusted. 4. There continues to be mixed density within the urinary bladder as well as air. This is not significantly changed compared to the prior exam. 5. Diffuse enlargement of the prostate gland. 6. New bilateral pleural effusions as well as bibasilar infiltrates. Amador Leiva MD Objective Remarks GENERAL: NAD SKIN: Warm and dry. HEAD: Normocephalic. EYES: No scleral icterus. No injection or drainage. NECK: Supple, trachea midline. No JVD or lymphadenopathy. CARDIOVASCULAR: Regular rate and rhythm without murmurs, gallops, or rubs. RESPIRATORY: Breath sounds decrease bilaterally. No accessory muscle use. GASTROINTESTINAL: Abdomen soft, non-tender, nondistended. MUSCULOSKELETAL: No cyanosis, or edema. BACK: Nontender without obvious deformity. No CVA tenderness. Procedures Catheterization A/P Problem List: (1) Gross hematuria ICD Code: R31.0 - Gross hematuria Status: Acute (2) Obstructive uropathy ICD Code: N13.9 - Obstructive and reflux uropathy, unspecified Status: Acute (3) Cardiomyopathy ICD Code: I42.9 - Cardiomyopathy, unspecified (4) CAD (coronary artery disease) ICD Code: I25.10 - Atherosclerotic heart disease of [place] coronary artery without angina pectoris (5) Hypertension ICD Code: I10 - Essential (primary) hypertension Status: Acute (6) BPH (benign prostatic hyperplasia) ICD Code: N40.0 - Benign prostatic hyperplasia without lower urinary tract symptoms Status: Acute (7) KIARA (acute kidney injury) ICD Code: N17.9 - Acute kidney failure, unspecified Assessment and Plan 82-year-old man with 1. Bladder spasm/Pain-Resolved Melatonin 5 mg daily at bedtime when necessary for insomnia Oxybutynin PRN, IV Tylenol as needed urology specialist following 2. COPD continue oxygen, Bronchodilator, Mucolytic, incentive spirometry 3. STEMI status post PCI LAD stent/V tach resolved/Lactic acidosis Aspirin 162 mg daily, Plavix 75 mg daily, Coreg 3.125 mg BID, Atorvastatin 10 mg daily, Amiodarone 200 mg every 12 hours Echocardiogram LVEF 35-40%. Anterior lateral wall akinesia. Not on Feliciano- In due to renal failure 11/18 Consulted EPS-medical management secondary to the criticality of the patient, plan for possible Life Vest/defibrillator 4. Elevated AST CT abdomen/pelvis earlier this hospitalization revealed right inguinal hernia without signs of strangulation, hiatal hernia, diverticulosis without diverticulitis and BPH 11/19 CT abdomen and pelvis repeated-no change right inguinal hernia containing loops of small and large bowel no mechanical obstruction now new bilateral pleural effusions. BPH 5. Gross Hematuria-Resolved/Status post cystoscopy and Fulguration/BPH/KIARA s/p bladder irrigation with Amicar per urology s/p Cystoscopy, evacuation of clots and fulguration of bladder neck region continue Flomax, Leave Ma catheter to gravity drainage for minimum of 1 week after Hematuria fully resolved. 6. Leukocytosis ID specialist Off Cefepime and Diflucan 7. Acute blood loss anemia status post 5 units of PRBCs 8. Acute on chronic systolic CHF exacerbation Continue Lasix 20 mg IV twice a day FELICIANO inhibitor contraindicated secondary to worsening renal function 9. Respiratory failure-improving BiPAP when necessary 10. Left Pleural effusion Chest US with 380+cc therefore will order US guided thoracentesis Mark Horowitz MD Dec 02, 2017 12:11
--- NOTE | 2017-12-02 13:24 | HHI.PR ---
Subjective Patient symptoms today Pt seen and examined. Hematuria now in hernández and bag. Hernández irrigated at bedside and urine did clear but need to resume CBI. Objective Vital Signs Vital Signs Date Time Temp Pulse Resp B/P (MAP) Pulse Ox O2 Delivery O2 Flow Rate FiO2 12/02/17 08:00 61 12/02/17 06:00 63 12/02/17 04:00 59 12/02/17 04:00 98.3 59 24 100/57 (71) 93 12/02/17 02:00 62 12/02/17 00:00 98.5 60 19 120/59 (79) 98 12/02/17 00:00 60 12/01/17 22:00 65 12/01/17 21:45 98 Nasal Cannula 3.00 12/01/17 20:00 98.7 65 20 109/56 (73) 100 12/01/17 20:00 65 12/01/17 18:00 68 12/01/17 16:00 98.5 70 23 111/61 (78) 92 12/01/17 16:00 70 12/01/17 14:00 67 Intake & Output 12/02/17 12/02/17 07:00 19:00 Intake Total 60 ml Output Total 1200 ml Balance -1140 ml Intake Oral 60 ml Output Urine Total 1200 ml Result Diagram: 12/02/17 0559 12/02/17 0559 Objective Remarks CBI running at a slow rate with clear output Bladder not distended 11/30 Abd:soft,nt,nd Hernández with clear urine. 12/01 Abd:soft,nt,nd Ext: neg Hernández: urine clear 12/02 Abd:soft,nt,nd Ext: neg Hernández: urine blood tinged; few clots removed Medications and IVs Current Medications Medications (Trade) Dose Ordered Sig/Micheal Route Start Time Stop Time Status Last Admin (Narcan Inj) 0.4 mg UNSCH PRN IV PUSH 11/10/17 14:15 (Flomax) 0.4 mg DAILY PO 11/11/17 09:00 12/02/17 09:55 (Catapres) 0.1 mg Q6H PRN PO 11/10/17 18:15 11/11/17 20:52 Aminocaproic Acid 3000 mg/Sodium Chloride 3,012 ml @ 0 mls/hr UNSCH IRRIGATION 11/13/17 14:15 Future Hold 11/20/17 09:19 (NS Flush) 2 ml UNSCH PRN IV FLUSH 11/13/17 16:45 (NS Flush) 2 ml BID IV FLUSH 11/13/17 21:00 12/02/17 09:56 (Aspirin Chew) 162 mg DAILY PO 11/14/17 09:00 12/01/17 08:01 (Plavix) 75 mg DAILY PO 11/14/17 09:00 12/02/17 09:55 (Coreg) 3.125 mg BID PO 11/13/17 21:00 12/01/17 21:19 (Lipitor) 10 mg HS PO 11/13/17 21:00 12/01/17 21:20 (Zofran Inj) 4 mg Q6HR PRN IV PUSH 11/13/17 19:30 11/26/17 12:34 Aminocaproic Acid 1000 mg/Sodium Chloride 1,004 ml @ 0 mls/hr UNSCH IRRIGATION 11/14/17 17:00 Future Hold (Miralax) 17 gm DAILY PO 11/17/17 11:00 12/02/17 09:54 Miscellaneous Information Patient in critical care unit? Ass... Q361D .XX 11/17/17 20:45 11/17/17 20:45 (Dilaudid Pf Inj) 0.5 mg Q4H PRN IV 11/17/17 21:15 11/26/17 09:40 (Dilaudid Pf Inj) 0.2 mg Q4H PRN IV PUSH 11/17/17 21:15 Acetaminophen 100 ml @ 400 mls/hr Q8HR PRN IV 11/17/17 21:15 (Albuterol Neb) 2.5 mg Q2HR NEB PRN NEB 11/17/17 21:15 12/02/17 08:10 (Lelia-Colace) 1 tab BID PO 11/18/17 09:00 12/01/17 21:19 (Lactulose Liq) 30 ml DAILY PO 11/18/17 09:00 12/02/17 09:54 (Melatonin) 5 mg HS PRN PO 11/18/17 20:00 12/01/17 21:20 (Cordarone) 200 mg Q12H PO 11/26/17 05:00 12/02/17 06:19 (NovoLOG SUPPLEMENTAL SCALE) 1 ACHS SLIDING SCALE SQ 11/21/17 12:00 11/30/17 17:00 (D50w (Vial) Inj) 50 ml UNSCH PRN IV PUSH 11/21/17 09:30 (Glucagon Inj) 1 mg UNSCH PRN OTHER 11/21/17 09:30 (Ditropan) 5 mg Q12H PRN PO 11/22/17 18:00 11/22/17 18:04 (Proscar) 5 mg DAILY PO 11/26/17 09:00 12/01/17 08:02 Acetaminophen 100 ml @ 400 mls/hr Q6H PRN IV 11/26/17 11:30 11/26/17 11:58 (Protonix) 40 mg DAILY PO 11/29/17 09:00 12/02/17 09:54 Sodium Chloride 1,000 ml @ 50 mls/hr Q20H IV 11/28/17 17:00 Future Hold 11/28/17 16:59 (Lasix Inj) 20 mg BID@,18 IV PUSH 11/30/17 18:00 12/02/17 09:56 ([place] Frans[place]) 2 spray Q6H PRN NASAL 12/01/17 18:15 (Oscal) 1,000 mg BID PO 12/02/17 21:00 (KCl) 20 meq DAILY PO 12/03/17 09:00 Assessment and Plan Assessment and Plan -Discussed with patient's family his current clinical status and hematuria with large bladder clot noted within the bladder -At this time, the patient's family is very hesitant to under go any further surgical intervention and they do understand the large bladder clot will not be able to be removed with surgery -In addition, given his recent PR and cardiac stents, Plavix is not able to be held -Therefore his current clinical situation may not improve, even with intervention to remove the large bladder clot as he may continue to bleed -Patient will need urgent/emergent cysto and clot evacuation if the catheter does not drain and his bladder becomes distended and painful. Family does understand this and would like to leave him as is for as long as possible -Alternatively, bilateral nephrostomy tubes may be placed to divert urine from the bladder. This may not be a good option given the Plavix -No surgical intervention at this time. Continue management with CBI and hand irrigation as needed -Will refer care back to [facility], Dr. Lee, tomorrow am 11/23/2017 Discussed ongoing management with Amicar CBI. Discussed that it may take up to 2 weeks for the urine to totally clear as patient is presently on anticoagulation therapy. We will irrigate CBI catheter as needed Once CBI discontinued, patient will require an indwelling Hernández catheter for an extended period of time to allow any residual clot material to dissolve. 11/25/2017 Persistent gross hematuria with bladder distention despite catheter change and irrigation We will keep patient n.p.o. We will bring patient to the cystoscopy suite for cystoscopy, clot evacuation and fulguration of any ongoing bleeding sites Risks and benefits discussed with patient and family 11/26/2017 Postop day #1 status post clot evacuation and fulguration to bladder neck region CBI running with clear output Wean off CBI as urine clears 11/27/2017 Resolving hematuria with CBI running at a slow rate Continue to titrate off CBI Suggest leaving Hernández catheter to gravity drainage for minimum of 1 week after hematuria fully resolved 11/30 82 y.o male with gross hematuria s/p clot evacuation and fulguration s/p PR with stenting on Plavix/ASA Urine is now clear Maintain hernández catheter OOB/Ambulate Encourage PO intake 12/01 82 y.o male with gross hematuria s/p clot evacuation and fulguration s/p PR with stenting on Plavix/ASA Urine is now clear; plug CBI port OOB/Ambulate PT and Dietary input appreciated 12/02 82 y.o male with gross hematuria s/p clot evacuation and fulguration s/p PR with stenting on Plavix/ASA Urine is now blood tinged with clots. Will restart Amicar CBI. OOB/Ambulate Irrigate hernández prn clots Raifta Lee DO Dec 02, 2017 13:24
[2017-12-02 18:20] LABS: INTERNATIONAL NORMALIZED RATIO 1.2 RATIO; PROTHROMBIN TIME - PATIENT 11.7 SEC (9.8-11.6)
[2017-12-02] MEDS: ATORVASTATIN 10 MG TAB PO SCH (20:57)
[2017-12-02] MEDS: HYDROmorphone HCL PF 2 MG/ML VIAL IV PUSH PRN (20:57)
[2017-12-02] MEDS: CALCIUM CARBONATE 1.25 GM (CA 500 MG) TAB PO SCH (20:57)
[2017-12-03] VITALS (20 sets, daily range): BP systolic 102–137; BP diastolic 52–68; PULSE 56–71; RESP 12–26; TEMP 97.7–98.8; O2SAT 95–100
[2017-12-03] MEDS: MELATONIN 5 MG TAB PO PRN (00:58)
[2017-12-03] MEDS: HYDROmorphone HCL PF 2 MG/ML VIAL IV PRN (00:59)
[2017-12-03] MEDS: HYDROmorphone HCL PF 2 MG/ML VIAL IV PUSH PRN (04:18)
[2017-12-03] MEDS: AMIODARONE 200 MG TAB PO SCH ×2 (05:00→16:46)
[2017-12-03] MEDS: LACTULOSE SYRUP 20 GM/30 ML CUP PO SCH (07:31)
[2017-12-03] MEDS: POLYETHYLENE GLYCOL 17 GM PKG PO SCH (07:31)
[2017-12-03] MEDS: INSULIN ASPART SUPPLEMENTAL SCALE SQ SCH ×4 (08:00→20:09)
[2017-12-03] MEDS: TAMSULOSIN HCL 0.4 MG CAP PO SCH (09:00)
[2017-12-03] MEDS: FINASTERIDE 5 MG TAB PO SCH (09:00)
[2017-12-03] MEDS: CARVEDILOL 3.125 MG TAB PO SCH ×2 (09:00→20:09)
[2017-12-03] MEDS: DOCUSATE SODIUM 50 MG/SENNA 8.6 MG TAB PO SCH ×2 (09:01→20:09)
[2017-12-03] MEDS: CLOPIDOGREL 75 MG TAB PO SCH (09:01)
[2017-12-03] MEDS: POTASSIUM CHLORIDE 20 MEQ CONTROLLED RELEASE TAB PO SCH (09:01)
[2017-12-03] MEDS: PANTOPRAZOLE SOD 40 MG DELAYED RELEASE TAB PO SCH (09:01)
[2017-12-03] MEDS: CALCIUM CARBONATE 1.25 GM (CA 500 MG) TAB PO SCH ×2 (09:01→20:09)
[2017-12-03] MEDS: ASPIRIN 81 MG CHEW TAB PO SCH (09:01)
[2017-12-03] MEDS: SODIUM CHLORIDE 0.9% FLUSH 10 ML FLUSH IV FLUSH SCH ×2 (09:02→20:09)
[2017-12-03] MEDS: FUROSEMIDE 20 MG/2 ML VIAL IV PUSH SCH ×2 (09:02→16:47)
--- NOTE | 2017-12-03 09:25 | HHI.PR ---
Subjective Patient symptoms today Pt seen and examined. Still with gross hematuria. Hbg down for 10.5 to 10.0 Objective Vital Signs Vital Signs Date Time Temp Pulse Resp B/P (MAP) Pulse Ox O2 Delivery O2 Flow Rate FiO2 12/03/17 08:14 100 Nasal Cannula 3.00 12/03/17 06:00 62 12/03/17 04:48 13 12/03/17 04:00 97.7 67 13 109/54 (72) 98 12/03/17 04:00 67 12/03/17 03:38 97 Nasal Cannula 3.00 12/03/17 02:00 56 12/03/17 01:29 18 12/03/17 00:00 69 12/03/17 00:00 98.7 66 18 103/58 (73) 99 12/02/17 22:00 65 12/02/17 20:00 98.3 61 18 90/55 (67) 99 12/02/17 20:00 66 12/02/17 18:00 61 12/02/17 16:00 98.3 58 16 98 12/02/17 16:00 58 12/02/17 14:00 61 12/02/17 12:00 97.9 62 17 111/59 (76) 97 12/02/17 12:00 62 12/02/17 10:00 63 Intake & Output 12/03/17 12/03/17 07:00 19:00 Intake Total 220 ml Output Total 800 ml Balance -580 ml Intake Oral 220 ml Output Urine Total 800 ml Result Diagram: 12/02/17 0559 12/02/17 0559 Objective Remarks CBI running at a slow rate with clear output Bladder not distended 11/30 Abd:soft,nt,nd Hernández with clear urine. 12/01 Abd:soft,nt,nd Ext: neg Hernández: urine clear 12/02 Abd:soft,nt,nd Ext: neg Hernández: urine blood tinged; few clots removed 12/03 Abd:soft,nt,nd Hernández: clots irrigated at bedside On CBI Medications and IVs Current Medications Medications (Trade) Dose Ordered Sig/Micheal Route Start Time Stop Time Status Last Admin (Narcan Inj) 0.4 mg UNSCH PRN IV PUSH 11/10/17 14:15 (Flomax) 0.4 mg DAILY PO 11/11/17 09:00 12/03/17 09:00 (Catapres) 0.1 mg Q6H PRN PO 11/10/17 18:15 11/11/17 20:52 Aminocaproic Acid 3000 mg/Sodium Chloride 3,012 ml @ 0 mls/hr UNSCH IRRIGATION 11/13/17 14:15 Future Hold 11/20/17 09:19 (NS Flush) 2 ml UNSCH PRN IV FLUSH 11/13/17 16:45 12/03/17 09:02 (NS Flush) 2 ml BID IV FLUSH 11/13/17 21:00 12/03/17 09:02 (Aspirin Chew) 162 mg DAILY PO 11/14/17 09:00 12/03/17 09:01 (Plavix) 75 mg DAILY PO 11/14/17 09:00 12/03/17 09:01 (Coreg) 3.125 mg BID PO 11/13/17 21:00 12/03/17 09:00 (Lipitor) 10 mg HS PO 11/13/17 21:00 12/02/17 20:57 (Zofran Inj) 4 mg Q6HR PRN IV PUSH 11/13/17 19:30 11/26/17 12:34 Aminocaproic Acid 1000 mg/Sodium Chloride 1,004 ml @ 0 mls/hr UNSCH IRRIGATION 11/14/17 17:00 Future Hold (Miralax) 17 gm DAILY PO 11/17/17 11:00 12/02/17 09:54 Miscellaneous Information Patient in critical care unit? Ass... Q361D .XX 11/17/17 20:45 11/17/17 20:45 (Dilaudid Pf Inj) 0.5 mg Q4H PRN IV 11/17/17 21:15 12/03/17 00:59 (Dilaudid Pf Inj) 0.2 mg Q4H PRN IV PUSH 11/17/17 21:15 12/03/17 04:18 Acetaminophen 100 ml @ 400 mls/hr Q8HR PRN IV 11/17/17 21:15 (Albuterol Neb) 2.5 mg Q2HR NEB PRN NEB 11/17/17 21:15 12/02/17 08:10 (Lelia-Colace) 1 tab BID PO 11/18/17 09:00 12/03/17 09:01 (Lactulose Liq) 30 ml DAILY PO 11/18/17 09:00 12/02/17 09:54 (Melatonin) 5 mg HS PRN PO 11/18/17 20:00 12/03/17 00:58 (Cordarone) 200 mg Q12H PO 11/26/17 05:00 12/02/17 06:19 (NovoLOG SUPPLEMENTAL SCALE) 1 ACHS SLIDING SCALE SQ 11/21/17 12:00 11/30/17 17:00 (D50w (Vial) Inj) 50 ml UNSCH PRN IV PUSH 11/21/17 09:30 (Glucagon Inj) 1 mg UNSCH PRN OTHER 11/21/17 09:30 (Ditropan) 5 mg Q12H PRN PO 11/22/17 18:00 11/22/17 18:04 (Proscar) 5 mg DAILY PO 11/26/17 09:00 12/03/17 09:00 Acetaminophen 100 ml @ 400 mls/hr Q6H PRN IV 11/26/17 11:30 11/26/17 11:58 (Protonix) 40 mg DAILY PO 11/29/17 09:00 12/03/17 09:01 Sodium Chloride 1,000 ml @ 50 mls/hr Q20H IV 11/28/17 17:00 Future Hold 11/28/17 16:59 (Lasix Inj) 20 mg BID@09,18 IV PUSH 11/30/17 18:00 12/03/17 09:02 ([place] Fransico [place]) 2 spray Q6H PRN NASAL 12/01/17 18:15 (Oscal) 1,000 mg BID PO 12/02/17 21:00 12/03/17 09:01 (KCl) 20 meq DAILY PO 12/03/17 09:00 12/03/17 09:01 Aminocaproic Acid 3000 mg/Sodium Chloride 3,012 ml @ 0 mls/hr CONTINUOUS IRRIGATION 12/02/17 14:00 Assessment and Plan Assessment and Plan -Discussed with patient's family his current clinical status and hematuria with large bladder clot noted within the bladder -At this time, the patient's family is very hesitant to under go any further surgical intervention and they do understand the large bladder clot will not be able to be removed with surgery -In addition, given his recent WI and cardiac stents, Plavix is not able to be held -Therefore his current clinical situation may not improve, even with intervention to remove the large bladder clot as he may continue to bleed -Patient will need urgent/emergent cysto and clot evacuation if the catheter does not drain and his bladder becomes distended and painful. Family does understand this and would like to leave him as is for as long as possible -Alternatively, bilateral nephrostomy tubes may be placed to divert urine from the bladder. This may not be a good option given the Plavix -No surgical intervention at this time. Continue management with CBI and hand irrigation as needed -Will refer care back to [facility], Dr. Lee, tomorrow am 11/23/2017 Discussed ongoing management with Amicar CBI. Discussed that it may take up to 2 weeks for the urine to totally clear as patient is presently on anticoagulation therapy. We will irrigate CBI catheter as needed Once CBI discontinued, patient will require an indwelling Hernández catheter for an extended period of time to allow any residual clot material to dissolve. 11/25/2017 Persistent gross hematuria with bladder distention despite catheter change and irrigation We will keep patient n.p.o. We will bring patient to the cystoscopy suite for cystoscopy, clot evacuation and fulguration of any ongoing bleeding sites Risks and benefits discussed with patient and family 11/26/2017 Postop day #1 status post clot evacuation and fulguration to bladder neck region CBI running with clear output Wean off CBI as urine clears 11/27/2017 Resolving hematuria with CBI running at a slow rate Continue to titrate off CBI Suggest leaving Hernández catheter to gravity drainage for minimum of 1 week after hematuria fully resolved 11/30 82 y.o male with gross hematuria s/p clot evacuation and fulguration s/p WI with stenting on Plavix/ASA Urine is now clear Maintain hernández catheter OOB/Ambulate Encourage PO intake 12/01 82 y.o male with gross hematuria s/p clot evacuation and fulguration s/p WI with stenting on Plavix/ASA Urine is now clear; plug CBI port OOB/Ambulate PT and Dietary input appreciated 12/02 82 y.o male with gross hematuria s/p clot evacuation and fulguration s/p WI with stenting on Plavix/ASA Urine is now blood tinged with clots. Will restart Amicar CBI. OOB/Ambulate Irrigate hernández prn clots 12/03 82 y.o male with ongoing gross hematuria with clots on anticoagulation s/p WI with stenting Recommend trying anticoagulation therapy every other day to help resolve hematuria Continue Amicar CBI Irrigate catheter prn Rafita Lee DO Dec 03, 2017 09:25
[2017-12-03] MEDS: AMINOCAPROIC ACID INJ 3,000 MG in SODIUM CHLORIDE 0.9% IRR BAG 3,000 ML IRRIGATION SCH ×4 (09:44→16:58)
--- NOTE | 2017-12-03 11:11 | HHI.NPPN ---
Subjective Renal Problems: Hematuria Renal Failure: Acute History of Present Illness This is an 82-year-old male with a past medical history of hypertension, benign prostatic hypertrophy, history of TURP in 2006, possible history of mild chronic kidney disease with creatinine on presentation of 1.3 and remained in the range of 1.2 to 1.3 most of the time. He presented to the hospital and was admitted on 11/10 because of hematuria. Nephrology was called to see the patient because of elevated BUN and creatinine. The patient has been followed by Urology and the impression was the patient has possible prostatic bleeding and continue the Hernández catheter and irrigation (this was on admission), and continue the Flomax. It was recently found on the ultrasound of the kidneys, that he has intraluminal mass versus ___ _ in the urinary bladder. The creatinine has been gradually going up, and now it is 4.5. The patient has bloody urine and is to continue the bladder irrigation. He has nausea or vomiting, no history of diarrhea. The patient has all the cultures negative, and currently he is getting Diflucan and cefepime. Infectious Disease is following. Additional Remarks Patient is alert sitting up in bed. Hernández with hematuria. (Karen Ch) Review of Systems Respiratory Lungs: SOB Respiratory Remarks improved. (Karen Ch) Cardiovascular Cardiac Remarks denies any CP (Karen Ch) Gastrointestinal GI Remarks denies abdominal pain (Karen Ch) Objective Data Data Vital Signs Date Time Temp Pulse Resp B/P (MAP) Pulse Ox O2 Delivery O2 Flow Rate FiO2 12/03/17 10:00 60 12/03/17 09:00 60 12/03/17 09:00 97.8 60 19 137/68 (91) 100 12/03/17 08:14 100 Nasal Cannula 3.00 12/03/17 08:00 60 12/03/17 08:00 60 15 99 12/03/17 07:00 61 12/03/17 07:00 61 14 108/58 (75) 97 12/03/17 06:00 62 12/03/17 04:48 13 12/03/17 04:00 97.7 67 13 109/54 (72) 98 12/03/17 04:00 67 12/03/17 03:38 97 Nasal Cannula 3.00 12/03/17 02:00 56 12/03/17 01:29 18 12/03/17 00:00 69 12/03/17 00:00 98.7 66 18 103/58 (73) 99 12/02/17 22:00 65 12/02/17 20:00 98.3 61 18 90/55 (67) 99 12/02/17 20:00 66 12/02/17 18:00 61 12/02/17 16:00 98.3 58 16 98 12/02/17 16:00 58 12/02/17 14:00 61 12/02/17 12:00 97.9 62 17 111/59 (76) 97 12/02/17 12:00 62 (Karen Ch) -: 12/02/17 0559 12/02/17 0559 Tubes & Lines: Hernández (Karen Ch) Physical Exam General Appearance: No Acute Distress, Comfortable (Karen Ch) Throat Throat Exam: Oral Mucosa [place] & Moist (Karen Ch) Pulmonary Resp Exam: Breath Sounds Equal, No Distress, Decreased Bases (Karen Ch) Cardiology CV Exam: Regular (Karen Ch) Gastrointestinal/Abdomen GI Exam: Bowel Sounds Present (Karen Ch) Genitourinary Exam: Flank Non-Tender Remarks Indwelling hernández. Hematuria present (Karen Ch) Integumentary Skin Exam: Warm, Dry (Karen Ch) Extremeties Extremities Exam: No Edema (Karen Ch) Neurologic Neuro Exam: Alert, Awake (Karen Ch) Psychiatric Psych Exam: Appropriate Responses (Karen Ch) Assessment/Plan Discussed Condition With: Patient Assessment Summary: KIARA/Acute Renal Failure Electrolyte Assessment: Hypocalcemia Problem List: (1) KIARA (acute kidney injury) ICD Codes: N17.9 - Acute kidney failure, unspecified Plan: Acute kidney injury possibly related to obstruction or period of hypotension. 11/22: Renal ultrasound. Intraluminal mass versus debris within the urinary bladder completely encasing the Hernández catheter. Mass versus debris within the urinary bladder completely encasing the Hernández catheter. Simple right renal cyst. No evidence of hydronephrosis Urology is following the patient. S/p Cystoscopy 11/25 with clot removal and fulguration of bleeding sites. Plan Creatinine has been improving Continue Lasix BID Maintain indwelling Hernández catheter bladder irrigation resumed. Will follow BMP and monitor UOP. Labs in AM (2) Gross hematuria ICD Codes: R31.0 - Gross hematuria Status: Acute Plan: Indwelling hernández catheter. Urology consulted s/p Cystoscopy 11/25 (3) Obstructive uropathy ICD Codes: N13.9 - Obstructive and reflux uropathy, unspecified Status: Acute (4) BPH (benign prostatic hyperplasia) ICD Codes: N40.0 - Benign prostatic hyperplasia without lower urinary tract symptoms Status: Acute (5) Hypertension ICD Codes: I10 - Essential (primary) hypertension Status: Acute Plan: Well controlled (Karen Ch) Problem List: (1) KIARA (acute kidney injury) ICD Codes: N17.9 - Acute kidney failure, unspecified Plan: Acute kidney injury possibly related to obstruction or period of hypotension. 11/22: Renal ultrasound. Intraluminal mass versus debris within the urinary bladder completely encasing the Hernández catheter. Mass versus debris within the urinary bladder completely encasing the Hernández catheter. Simple right renal cyst. No evidence of hydronephrosis Urology is following the patient. S/p Cystoscopy 11/25 with clot removal and fulguration of bleeding sites. Plan Creatinine has been improving Continue Lasix BID Maintain indwelling Hernández catheter bladder irrigation resumed. Will follow BMP and monitor UOP. Labs in AM. Patient seen and examined, agree with above. No BMP today, urine out put is adequate, follow BMP in AM. (2) Gross hematuria ICD Codes: R31.0 - Gross hematuria Status: Acute Plan: Indwelling hernández catheter. Urology consulted s/p Cystoscopy 11/25 (3) Obstructive uropathy ICD Codes: N13.9 - Obstructive and reflux uropathy, unspecified Status: Acute (4) BPH (benign prostatic hyperplasia) ICD Codes: N40.0 - Benign prostatic hyperplasia without lower urinary tract symptoms Status: Acute (5) Hypertension ICD Codes: I10 - Essential (primary) hypertension Status: Acute Plan: Well controlled (Ashley Pal MD) Karen Ch Dec 03, 2017 11:11 Ashley Pal MD Dec 03, 2017 21:49
--- NOTE | 2017-12-03 11:18 | HHI.PR ---
Subjective Remarks Follow-up hematuria/pulmonary infiltrates 11/28/17-patient seen and examined, positive for shortness of breath and currently on 4 L nasal cannula. Hematuria improving 11/29/17-patient seen and examined, overnight he went into respiratory failure for which he was transferred to ICU and treated with Lasix and BiPAP. This morning patient conditions and respiratory symptoms resolve. Case discussed with nephrology. Also discussed with patient's daughter was very unhappy about the care that her father has been receiving. 11/30/17-patient seen and examined, still reports some episode of dyspnea however much improved from 2 days ago. 12/01/17-patient seen and examined, states he is feeling better and denies any significant shortness of breath. Daughter by the bedside 12/02/17-patient seen and examined, chest US with Left sided PLEURAL EFFUSION, states he's feeling better and vitals stable 12/03/17-patient seen and examined, still with gross hematuria for which case was discussed with urology Dr. Eller at bedside Objective Vitals Vital Signs Date Time Temp Pulse Resp B/P (MAP) Pulse Ox O2 Delivery O2 Flow Rate FiO2 12/03/17 10:00 60 12/03/17 09:00 60 12/03/17 09:00 97.8 60 19 137/68 (91) 100 12/03/17 08:14 100 Nasal Cannula 3.00 12/03/17 08:00 60 12/03/17 08:00 60 15 99 12/03/17 07:00 61 12/03/17 07:00 61 14 108/58 (75) 97 12/03/17 06:00 62 12/03/17 04:48 13 12/03/17 04:00 97.7 67 13 109/54 (72) 98 12/03/17 04:00 67 12/03/17 03:38 97 Nasal Cannula 3.00 12/03/17 02:00 56 12/03/17 01:29 18 12/03/17 00:00 69 12/03/17 00:00 98.7 66 18 103/58 (73) 99 12/02/17 22:00 65 12/02/17 20:00 98.3 61 18 90/55 (67) 99 12/02/17 20:00 66 12/02/17 18:00 61 12/02/17 16:00 98.3 58 16 98 12/02/17 16:00 58 12/02/17 14:00 61 12/02/17 12:00 97.9 62 17 111/59 (76) 97 12/02/17 12:00 62 I/O 12/02/17 12/02/17 12/02/17 12/03/17 12/03/17 12/03/17 06:59 14:59 22:59 06:59 14:59 22:59 Intake Total 60 ml 500 ml 220 ml Output Total 1200 ml 800 ml Balance -1140 ml 500 ml -580 ml Intake Oral 60 ml 500 ml 220 ml Output Urine Total 1200 ml 800 ml Result Diagram: 12/02/17 0559 12/02/17 0559 Objective Remarks GENERAL: NAD SKIN: Warm and dry. HEAD: Normocephalic. EYES: No scleral icterus. No injection or drainage. NECK: Supple, trachea midline. No JVD or lymphadenopathy. CARDIOVASCULAR: Regular rate and rhythm without murmurs, gallops, or rubs. RESPIRATORY: Breath sounds decrease bilaterally. No accessory muscle use. GASTROINTESTINAL: Abdomen soft, non-tender, nondistended. MUSCULOSKELETAL: No cyanosis, or edema. BACK: Nontender without obvious deformity. No CVA tenderness. Procedures Catheterization A/P Problem List: (1) Gross hematuria ICD Code: R31.0 - Gross hematuria Status: Acute (2) Obstructive uropathy ICD Code: N13.9 - Obstructive and reflux uropathy, unspecified Status: Acute (3) Cardiomyopathy ICD Code: I42.9 - Cardiomyopathy, unspecified (4) CAD (coronary artery disease) ICD Code: I25.10 - Atherosclerotic heart disease of [place] coronary artery without angina pectoris (5) Hypertension ICD Code: I10 - Essential (primary) hypertension Status: Acute (6) BPH (benign prostatic hyperplasia) ICD Code: N40.0 - Benign prostatic hyperplasia without lower urinary tract symptoms Status: Acute (7) KIARA (acute kidney injury) ICD Code: N17.9 - Acute kidney failure, unspecified Assessment and Plan 82-year-old man with 1. Bladder spasm/Pain-Resolved Melatonin 5 mg daily at bedtime when necessary for insomnia Oxybutynin PRN, IV Tylenol as needed urology specialist following 2. COPD continue oxygen, Bronchodilator, Mucolytic, incentive spirometry 3. STEMI status post PCI LAD stent/V tach resolved/Lactic acidosis Aspirin 162 mg daily, Plavix 75 mg daily, Coreg 3.125 mg BID, Atorvastatin 10 mg daily, Amiodarone 200 mg every 12 hours Echocardiogram LVEF 35-40%. Anterior lateral wall akinesia. Not on Feliciano- In due to renal failure 11/18 Consulted EPS-medical management secondary to the criticality of the patient, plan for possible Life Vest/defibrillator 4. Elevated AST CT abdomen/pelvis earlier this hospitalization revealed right inguinal hernia without signs of strangulation, hiatal hernia, diverticulosis without diverticulitis and BPH 11/19 CT abdomen and pelvis repeated-no change right inguinal hernia containing loops of small and large bowel no mechanical obstruction now new bilateral pleural effusions. BPH 5. Gross Hematuria-Resolved/Status post cystoscopy and Fulguration/BPH/KIARA continue bladder irrigation with Amicar per urology. Urology requested that Plavix be given every other day s/p Cystoscopy, evacuation of clots and fulguration of bladder neck region continue Flomax, Leave Ma catheter to gravity drainage for minimum of 1 week after Hematuria fully resolved. 6. Leukocytosis ID specialist Off Cefepime and Diflucan 7. Acute blood loss anemia status post 5 units of PRBCs 8. Acute on chronic systolic CHF exacerbation Continue Lasix 20 mg IV twice a day FELICIANO inhibitor contraindicated secondary to worsening renal function 9. Respiratory failure-improved BiPAP when necessary 10. Left Pleural effusion Chest US with 380+cc Ultrasound-guided thoracentesis as been ordered however patient still on Plavix, which cannot be discontinued secondary to recent stent placement Mark Horowitz MD Dec 03, 2017 11:18
[2017-12-03] MEDS: ONDANSETRON HCL 4 MG/2 ML VIAL IV PUSH PRN (11:29)
--- NOTE | 2017-12-03 17:27 | PD.CARD.PN ---
Subjective Subjective Remarks asleep in nad Objective Medications Current Medications Medications (Trade) Dose Ordered Sig/Micheal Route Start Time Stop Time Status Last Admin (Narcan Inj) 0.4 mg UNSCH PRN IV PUSH 11/10/17 14:15 (Flomax) 0.4 mg DAILY PO 11/11/17 09:00 12/03/17 09:00 (Catapres) 0.1 mg Q6H PRN PO 11/10/17 18:15 11/11/17 20:52 Aminocaproic Acid 3000 mg/Sodium Chloride 3,012 ml @ 0 mls/hr UNSCH IRRIGATION 11/13/17 14:15 Future Hold 11/20/17 09:19 (NS Flush) 2 ml UNSCH PRN IV FLUSH 11/13/17 16:45 12/03/17 09:02 (NS Flush) 2 ml BID IV FLUSH 11/13/17 21:00 12/03/17 09:02 (Aspirin Chew) 162 mg DAILY PO 11/14/17 09:00 12/03/17 09:01 (Plavix) 75 mg DAILY PO 11/14/17 09:00 12/03/17 09:01 (Coreg) 3.125 mg BID PO 11/13/17 21:00 12/03/17 09:00 (Lipitor) 10 mg HS PO 11/13/17 21:00 12/02/17 20:57 (Zofran Inj) 4 mg Q6HR PRN IV PUSH 11/13/17 19:30 12/03/17 11:29 Aminocaproic Acid 1000 mg/Sodium Chloride 1,004 ml @ 0 mls/hr UNSCH IRRIGATION 11/14/17 17:00 Future Hold (Miralax) 17 gm DAILY PO 11/17/17 11:00 12/02/17 09:54 Miscellaneous Information Patient in critical care unit? Ass... Q361D .XX 11/17/17 20:45 11/17/17 20:45 (Dilaudid Pf Inj) 0.5 mg Q4H PRN IV 11/17/17 21:15 12/03/17 00:59 (Dilaudid Pf Inj) 0.2 mg Q4H PRN IV PUSH 11/17/17 21:15 12/03/17 04:18 Acetaminophen 100 ml @ 400 mls/hr Q8HR PRN IV 11/17/17 21:15 (Albuterol Neb) 2.5 mg Q2HR NEB PRN NEB 11/17/17 21:15 12/02/17 08:10 (Lelia-Colace) 1 tab BID PO 11/18/17 09:00 12/03/17 09:01 (Lactulose Liq) 30 ml DAILY PO 11/18/17 09:00 12/02/17 09:54 (Melatonin) 5 mg HS PRN PO 11/18/17 20:00 12/03/17 00:58 (Cordarone) 200 mg Q12H PO 11/26/17 05:00 12/03/17 16:46 (NovoLOG SUPPLEMENTAL SCALE) 1 ACHS SLIDING SCALE SQ 11/21/17 12:00 11/30/17 17:00 (D50w (Vial) Inj) 50 ml UNSCH PRN IV PUSH 11/21/17 09:30 (Glucagon Inj) 1 mg UNSCH PRN OTHER 11/21/17 09:30 (Ditropan) 5 mg Q12H PRN PO 11/22/17 18:00 11/22/17 18:04 (Proscar) 5 mg DAILY PO 11/26/17 09:00 12/03/17 09:00 Acetaminophen 100 ml @ 400 mls/hr Q6H PRN IV 11/26/17 11:30 11/26/17 11:58 (Protonix) 40 mg DAILY PO 11/29/17 09:00 12/03/17 09:01 Sodium Chloride 1,000 ml @ 50 mls/hr Q20H IV 11/28/17 17:00 Future Hold 11/28/17 16:59 (Lasix Inj) 20 mg BID@09,18 IV PUSH 11/30/17 18:00 12/03/17 16:47 ([place] Fransico [place]) 2 spray Q6H PRN NASAL 12/01/17 18:15 (Oscal) 1,000 mg BID PO 12/02/17 21:00 12/03/17 09:01 (KCl) 20 meq DAILY PO 12/03/17 09:00 12/03/17 09:01 Aminocaproic Acid 3000 mg/Sodium Chloride 3,012 ml @ 0 mls/hr CONTINUOUS IRRIGATION 12/02/17 14:00 12/03/17 16:58 Vital Signs / I&O Vital Signs Date Time Temp Pulse Resp B/P (MAP) Pulse Ox O2 Delivery O2 Flow Rate FiO2 12/03/17 16:00 97.9 59 17 102/56 (71) 95 12/03/17 16:00 59 12/03/17 15:00 59 12/03/17 15:00 59 14 109/54 (72) 98 12/03/17 14:00 63 17 109/52 (71) 100 12/03/17 14:00 63 12/03/17 13:00 71 12/03/17 13:00 71 26 110/55 (73) 100 12/03/17 12:00 98.1 60 14 110/55 (73) 100 12/03/17 12:00 60 12/03/17 11:00 64 14 127/61 (83) 100 12/03/17 11:00 64 12/03/17 10:00 60 12/03/17 10:00 60 12 125/58 (80) 100 12/03/17 09:00 60 12/03/17 09:00 97.8 60 19 137/68 (91) 100 12/03/17 08:14 100 Nasal Cannula 3.00 12/03/17 08:00 60 12/03/17 08:00 60 15 99 12/03/17 07:00 61 12/03/17 07:00 61 14 108/58 (75) 97 12/03/17 06:00 62 12/03/17 04:48 13 12/03/17 04:00 97.7 67 13 109/54 (72) 98 12/03/17 04:00 67 12/03/17 03:38 97 Nasal Cannula 3.00 12/03/17 02:00 56 12/03/17 01:29 18 12/03/17 00:00 69 12/03/17 00:00 98.7 66 18 103/58 (73) 99 12/02/17 22:00 65 12/02/17 20:00 98.3 61 18 90/55 (67) 99 12/02/17 20:00 66 12/02/17 18:00 61 I/O 12/02/17 12/02/17 12/02/17 12/03/17 12/03/17 12/03/17 07:00 15:00 23:00 07:00 15:00 23:00 Intake Total 60 ml 500 ml 220 ml Output Total 1200 ml 800 ml 950 ml Balance -1140 ml 500 ml -580 ml -950 ml Intake Oral 60 ml 500 ml 220 ml Output Urine Total 1200 ml 800 ml 950 ml Physical Exam GENERAL: SKIN: Warm and dry. HEAD: Normocephalic. EYES: No scleral icterus. No injection or drainage. NECK: Supple, trachea midline. No JVD or lymphadenopathy. CARDIOVASCULAR: Regular rate and rhythm without murmurs, gallops, or rubs. RESPIRATORY: Breath sounds equal bilaterally. No accessory muscle use. GASTROINTESTINAL: Abdomen soft, non-tender, nondistended. MUSCULOSKELETAL: No cyanosis, or edema. BACK: Nontender without obvious deformity. No CVA tenderness. Laboratory Laboratory Tests Test 12/03/17 03:50 B-Type Natriuretic Peptide 1189 PG/ML Assessment and Plan Problem List: (1) Cardiomyopathy ICD Codes: I42.9 - Cardiomyopathy, unspecified (2) CAD (coronary artery disease) ICD Codes: I25.10 - Atherosclerotic heart disease of [place] coronary artery without angina pectoris (3) Hematuria ICD Codes: R31.9 - Hematuria, unspecified Status: Acute (4) Gross hematuria ICD Codes: R31.0 - Gross hematuria Status: Acute Assessment and Plan 1.) CAD - pod# 20 primary pci, assymptomatic, continue aspirin, plavix, lipitor , coreg, dov held due ubstructive uopathy, arf and hypotension, transfuse prn to keep hgb> 9.0, d/w nurse, hematuria improving 2.) Wide complex tachycardia - discussed in detail with family, patient, Dr Yap , Dr Del Rio, DR Hernandez, nurse at bedside; on iv amio, f/u Dr Jackson; patient assymptomatic during event, trop continues to trend down, continue amiodarone 3.) Hypoxia - supsect chf excacerbated by volume overload related to arf, u/o and bnp improving, negative fluid balance, f/u bnp in am, d/w daughter and patient in detail at the bedside 4.) Cardiomyopathy - continue coreg, dov held due to arf, u/o good, in negative fluid balance over past 48 hrs, weight decreased from 75 kg to 74 kg, f/u bnp/ bmp Nathanael Kelley MD Dec 03, 2017 17:26
[2017-12-03] MEDS: ATORVASTATIN 10 MG TAB PO SCH (20:09)
[2017-12-04] VITALS (21 sets, daily range): BP systolic 106–134; BP diastolic 52–63; PULSE 57–74; RESP 12–55; TEMP 97.6–98.6; O2SAT 85–100
[2017-12-04] MEDS: HYDROmorphone HCL PF 2 MG/ML VIAL IV PRN (01:47)
[2017-12-04] MEDS: AMIODARONE 200 MG TAB PO SCH ×2 (05:29→17:00)
[2017-12-04 06:25] LABS: AUTOMATED NEUTROPHIL # 7.3 TH/MM3 (1.8-7.7); BASOPHIL # 0.1 TH/MM3 (0-0.2); BASOPHIL % 0.6 % (0.0-2.0); EOSINOPHIL # 0.1 TH/MM3 (0-0.4); EOSINOPHIL % 1.2 % (0.0-4.0); HEMATOCRIT 27.5 % (39.0-51.0); HEMOGLOBIN 9.4 GM/DL (13.0-17.0); LYMPH % 15.9 % (9.0-44.0); LYMPHOCYTE # 1.5 TH/MM3 (1.0-4.8); MEAN CELL VOLUME 88.7 FL (80.0-100.0); MEAN CORPUSCULAR HEMOGLOBIN 30.1 PG (27.0-34.0); MEAN PLATELET VOLUME 8.9 FL (7.0-11.0); MONOCYTE # 0.5 TH/MM3 (0-0.9); NEUT % 77.3 % (16.0-70.0); PLATELET COUNT 235 TH/MM3 (150-450); WHITE BLOOD COUNT 9.5 TH/MM3 (4.0-11.0)
[2017-12-04 07:04] LABS: BICARBONATE 30.3 MEQ/L (21.0-32.0); CALCIUM 7.3 MG/DL (8.5-10.1); CREATININE 2.39 MG/DL (0.60-1.30)
[2017-12-04 07:38] LABS: CALCIUM-PROTEIN CORRECTED 7.9 MG/DL (8.5-10.1)
[2017-12-04] MEDS: INSULIN ASPART SUPPLEMENTAL SCALE SQ SCH ×4 (08:00→19:41)
[2017-12-04] MEDS: SODIUM CHLORIDE 0.9% FLUSH 10 ML FLUSH IV FLUSH SCH ×2 (09:00→19:41)
[2017-12-04] MEDS: POLYETHYLENE GLYCOL 17 GM PKG PO SCH (09:08)
[2017-12-04] MEDS: TAMSULOSIN HCL 0.4 MG CAP PO SCH (09:08)
[2017-12-04] MEDS: CALCIUM CARBONATE 1.25 GM (CA 500 MG) TAB PO SCH ×2 (09:08→19:41)
[2017-12-04] MEDS: DOCUSATE SODIUM 50 MG/SENNA 8.6 MG TAB PO SCH ×2 (09:08→19:41)
[2017-12-04] MEDS: ASPIRIN 81 MG CHEW TAB PO SCH (09:08)
[2017-12-04] MEDS: PANTOPRAZOLE SOD 40 MG DELAYED RELEASE TAB PO SCH (09:08)
[2017-12-04] MEDS: LACTULOSE SYRUP 20 GM/30 ML CUP PO SCH (09:08)
[2017-12-04] MEDS: CLOPIDOGREL 75 MG TAB PO SCH (09:09)
[2017-12-04] MEDS: FINASTERIDE 5 MG TAB PO SCH (09:09)
[2017-12-04] MEDS: POTASSIUM CHLORIDE 20 MEQ CONTROLLED RELEASE TAB PO SCH (09:10)
[2017-12-04] MEDS: CARVEDILOL 3.125 MG TAB PO SCH ×2 (09:10→19:41)
[2017-12-04] MEDS: FUROSEMIDE 20 MG/2 ML VIAL IV PUSH SCH ×2 (09:10→17:20)
[2017-12-04] MEDS: AMINOCAPROIC ACID INJ 3,000 MG in SODIUM CHLORIDE 0.9% IRR BAG 3,000 ML IRRIGATION SCH ×3 (10:00→16:56)
--- NOTE | 2017-12-04 11:02 | HHI.NPPN ---
Subjective Renal Problems: Hematuria Renal Failure: Acute History of Present Illness This is an 82-year-old male with a past medical history of hypertension, benign prostatic hypertrophy, history of TURP in 2006, possible history of mild chronic kidney disease with creatinine on presentation of 1.3 and remained in the range of 1.2 to 1.3 most of the time. He presented to the hospital and was admitted on 11/10 because of hematuria. Nephrology was called to see the patient because of elevated BUN and creatinine. The patient has been followed by Urology and the impression was the patient has possible prostatic bleeding and continue the Hernández catheter and irrigation (this was on admission), and continue the Flomax. It was recently found on the ultrasound of the kidneys, that he has intraluminal mass versus ___ _ in the urinary bladder. The creatinine has been gradually going up, and now it is 4.5. The patient has bloody urine and is to continue the bladder irrigation. He has nausea or vomiting, no history of diarrhea. The patient has all the cultures negative, and currently he is getting Diflucan and cefepime. Infectious Disease is following. Additional Remarks Patient is alert sitting up in bed. Hernández with hematuria CBI infusing. (Karen Ch) Review of Systems Respiratory Lungs: SOB Respiratory Remarks improved. (Karen Ch) Cardiovascular Cardiac Remarks denies any CP (Karen Ch) Gastrointestinal GI Remarks denies abdominal pain (Karen Ch) Objective Data Data Vital Signs Date Time Temp Pulse Resp B/P (MAP) Pulse Ox O2 Delivery O2 Flow Rate FiO2 12/04/17 09:38 97 Nasal Cannula 1.00 12/04/17 06:00 61 12/04/17 04:00 59 12/04/17 04:00 98.4 61 12 134/63 (86) 100 12/04/17 02:00 57 12/04/17 00:00 74 12/04/17 00:00 98.4 74 55 108/54 (72) 89 12/03/17 22:00 64 12/03/17 20:00 62 12/03/17 20:00 98.8 62 14 118/58 (78) 98 12/03/17 18:00 70 12/03/17 17:00 61 12/03/17 16:00 97.9 59 17 102/56 (71) 95 12/03/17 16:00 59 12/03/17 15:00 59 12/03/17 15:00 59 14 109/54 (72) 98 12/03/17 14:00 63 17 109/52 (71) 100 12/03/17 14:00 63 12/03/17 13:00 71 12/03/17 13:00 71 26 110/55 (73) 100 12/03/17 12:00 98.1 60 14 110/55 (73) 100 12/03/17 12:00 60 12/03/17 11:00 64 14 127/61 (83) 100 12/03/17 11:00 64 (Karen Ch) -: 12/04/17 0510 12/04/17 0510 Imaging Last Impressions Chest X-Ray 12/01/17 0000 Signed Impressions: Service Date/Time: Friday, December 01, 2017 08:15 - CONCLUSION: 1. Stable diffuse pulmonary parenchymal infiltrate in the left with worsening infiltrate on the right. 2. Possible developing left sided effusion with blunting the costophrenic angles. Gautam Marks MD Chest Ultrasound 12/01/17 0000 Signed Impressions: Service Date/Time: Friday, December 01, 2017 14:36 - CONCLUSION: Left-sided pleural effusion. Amador Leiva MD Abdomen X-Ray 11/25/17 0000 Signed Impressions: Service Date/Time: Saturday, November 25, 2017 11:39 - CONCLUSION: 1. No calcified stones seen. 2. Nonspecific abdominal bowel gas pattern with diffuse gas containing minimally distended loops of small bowel. Jesus Martinez MD Renal Ultrasound 11/22/17 0000 Signed Impressions: Service Date/Time: Wednesday, November 22, 2017 10:23 - CONCLUSION: 1. Intraluminal mass versus debris within the urinary bladder completely encasing the Hernández catheter. 2. Simple right renal cyst. 3. No evidence of hydronephrosis. Isaias Hanna MD Chest CT 11/20/17 0000 Signed Impressions: Service Date/Time: Monday, November 20, 2017 22:03 - CONCLUSION: Diffuse confluent airspace opacities throughout both lungs obscuring portions of the right middle lobe. There is associated large bilateral pleural effusions. Jesus Martinez MD Abdomen/Pelvis CT 11/19/17 0819 Signed Impressions: Service Date/Time: November 09:06 - CONCLUSION: 1. The bowel gas pattern remains within normal limits. No mechanical obstruction. 2. There is a right inguinal hernia containing loops of small and large bowel without obstruction. 3. There is a Hernández catheter in urinary bladder. However, the balloon on the Hernández catheter appears to be inflated within the prostatic urethra. This may need to be adjusted. 4. There continues to be mixed density within the urinary bladder as well as air. This is not significantly changed compared to the prior exam. 5. Diffuse enlargement of the prostate gland. 6. New bilateral pleural effusions as well as bibasilar infiltrates. Amador Leiva MD Tubes & Lines: Hernández (Karen Ch M. POWER SYSTEM DISPATCHER) Physical Exam General Appearance: No Acute Distress, Comfortable (GellermannMeeKaren M. POWER SYSTEM DISPATCHER) Throat Throat Exam: Oral Mucosa [place] & Moist (GellermannKaren M. POWER SYSTEM DISPATCHER) Pulmonary Resp Exam: Breath Sounds Equal, No Distress, Decreased Bases (GellermannKaren M. POWER SYSTEM DISPATCHER) Cardiology CV Exam: Regular (GellermannKaren M. POWER SYSTEM DISPATCHER) Gastrointestinal/Abdomen GI Exam: Bowel Sounds Present (GellermannKaren M. POWER SYSTEM DISPATCHER) Genitourinary Exam: Flank Non-Tender Remarks Indwelling hernández. Hematuria present (GellerMee moellerne M. POWER SYSTEM DISPATCHER) Integumentary Skin Exam: Warm, Dry (GellermannKaren M. POWER SYSTEM DISPATCHER) Extremeties Extremities Exam: No Edema (GellermannKaren M. POWER SYSTEM DISPATCHER) Neurologic Neuro Exam: Alert, Awake (GellermannKaren M. POWER SYSTEM DISPATCHER) Psychiatric Psych Exam: Appropriate Responses (Karen Ch M. POWER SYSTEM DISPATCHER) Assessment/Plan Discussed Condition With: Patient Assessment Summary: KIARA/Acute Renal Failure Electrolyte Assessment: Hypocalcemia Problem List: (1) KIARA (acute kidney injury) ICD Codes: N17.9 - Acute kidney failure, unspecified Plan: Acute kidney injury possibly related to obstruction or period of hypotension. 11/22: Renal ultrasound. Intraluminal mass versus debris within the urinary bladder completely encasing the Hernández catheter. Mass versus debris within the urinary bladder completely encasing the Hernández catheter. Simple right renal cyst. No evidence of hydronephrosis Urology is following the patient. S/p Cystoscopy 11/25 with clot removal and fulguration of bleeding sites. Plan Creatinine continues to improve with creatinine of 2.39 today Hypocalcemia noted on replacement Continue Lasix BID Maintain indwelling Hernández catheter bladder irrigation resumed. Will follow BMP and monitor UOP. (2) Gross hematuria ICD Codes: R31.0 - Gross hematuria Status: Acute Plan: Indwelling hernández catheter. Urology consulted s/p Cystoscopy 11/25 (3) Obstructive uropathy ICD Codes: N13.9 - Obstructive and reflux uropathy, unspecified Status: Acute (4) BPH (benign prostatic hyperplasia) ICD Codes: N40.0 - Benign prostatic hyperplasia without lower urinary tract symptoms Status: Acute (5) Hypertension ICD Codes: I10 - Essential (primary) hypertension Status: Acute Plan: Well controlled (Karen Ch) Problem List: (1) KIARA (acute kidney injury) ICD Codes: N17.9 - Acute kidney failure, unspecified Plan: Acute kidney injury possibly related to obstruction or period of hypotension. 11/22: Renal ultrasound. Intraluminal mass versus debris within the urinary bladder completely encasing the Hernández catheter. Mass versus debris within the urinary bladder completely encasing the Hernández catheter. Simple right renal cyst. No evidence of hydronephrosis Urology is following the patient. S/p Cystoscopy 11/25 with clot removal and fulguration of bleeding sites. Plan Creatinine continues to improve with creatinine of 2.39 today Hypocalcemia noted on replacement Continue Lasix BID Maintain indwelling Hernández catheter bladder irrigation resumed. Will follow BMP and monitor UOP. Patient seen and examined, agree with above. Avoid Nephrotoxins, watch for renal recovery. (2) Gross hematuria ICD Codes: R31.0 - Gross hematuria Status: Acute Plan: Indwelling hernández catheter. Urology consulted s/p Cystoscopy 11/25 (3) Obstructive uropathy ICD Codes: N13.9 - Obstructive and reflux uropathy, unspecified Status: Acute (4) BPH (benign prostatic hyperplasia) ICD Codes: N40.0 - Benign prostatic hyperplasia without lower urinary tract symptoms Status: Acute (5) Hypertension ICD Codes: I10 - Essential (primary) hypertension Status: Acute Plan: Well controlled (Ashley Pal MD) Karen Ch Dec 04, 2017 11:02 Ashley Pal MD Dec 07, 2017 19:21
--- NOTE | 2017-12-04 13:02 | HHI.PR ---
Subjective Patient symptoms today Pt seen and examined. Urine clearing. On Amicar CBI. Still on daily Plavix/ASA. Not changed to QOD. Objective Vital Signs Vital Signs Date Time Temp Pulse Resp B/P (MAP) Pulse Ox O2 Delivery O2 Flow Rate FiO2 12/04/17 12:00 71 24 123/60 (81) 98 12/04/17 11:00 67 23 111/56 (74) 12/04/17 10:00 66 22 107/52 (70) 85 12/04/17 09:38 97 Nasal Cannula 1.00 12/04/17 09:00 65 23 124/60 (81) 97 12/04/17 08:00 98.6 60 16 116/56 (76) 98 12/04/17 06:00 61 12/04/17 04:00 59 12/04/17 04:00 98.4 61 12 134/63 (86) 100 12/04/17 02:00 57 12/04/17 00:00 74 12/04/17 00:00 98.4 74 55 108/54 (72) 89 12/03/17 22:00 64 12/03/17 20:00 62 12/03/17 20:00 98.8 62 14 118/58 (78) 98 12/03/17 18:00 70 12/03/17 17:00 61 12/03/17 16:00 97.9 59 17 102/56 (71) 95 12/03/17 16:00 59 12/03/17 15:00 59 12/03/17 15:00 59 14 109/54 (72) 98 12/03/17 14:00 63 17 109/52 (71) 100 12/03/17 14:00 63 Intake & Output 12/04/17 12/04/17 07:00 19:00 Intake Total 350 ml Output Total 500 ml Balance -150 ml Intake Oral 350 ml Output Urine Total 500 ml Bladder Scan Volume Amount 17 ml # Bowel Movements 0 Result Diagram: 12/04/17 0512/04/17 05 Objective Remarks CBI running at a slow rate with clear output Bladder not distended 11/30 Abd:soft,nt,nd Hernández with clear urine. 12/01 Abd:soft,nt,nd Ext: neg Hernández: urine clear 12/02 Abd:soft,nt,nd Ext: neg Hernández: urine blood tinged; few clots removed 12/03 Abd:soft,nt,nd Hernández: clots irrigated at bedside On CBI 12/04 Abd:soft,nt,nd Hernández: urine clearing; few clots irrigated at bedside Medications and IVs Current Medications Medications (Trade) Dose Ordered Sig/Micheal Route Start Time Stop Time Status Last Admin (Narcan Inj) 0.4 mg UNSCH PRN IV PUSH 11/10/17 14:15 (Flomax) 0.4 mg DAILY PO 11/11/17 09:00 12/04/17 09:08 (Catapres) 0.1 mg Q6H PRN PO 11/10/17 18:15 11/11/17 20:52 Aminocaproic Acid 3000 mg/Sodium Chloride 3,012 ml @ 0 mls/hr UNSCH IRRIGATION 11/13/17 14:15 Future Hold 11/20/17 09:19 (NS Flush) 2 ml UNSCH PRN IV FLUSH 11/13/17 16:45 12/03/17 09:02 (NS Flush) 2 ml BID IV FLUSH 11/13/17 21:00 12/04/17 09:00 (Aspirin Chew) 162 mg DAILY PO 11/14/17 09:00 12/04/17 09:08 (Plavix) 75 mg DAILY PO 11/14/17 09:00 12/04/17 09:09 (Coreg) 3.125 mg BID PO 11/13/17 21:00 12/04/17 09:10 (Lipitor) 10 mg HS PO 11/13/17 21:00 12/03/17 20:09 (Zofran Inj) 4 mg Q6HR PRN IV PUSH 11/13/17 19:30 12/03/17 11:29 Aminocaproic Acid 1000 mg/Sodium Chloride 1,004 ml @ 0 mls/hr UNSCH IRRIGATION 11/14/17 17:00 Future Hold (Miralax) 17 gm DAILY PO 11/17/17 11:00 12/04/17 09:08 Miscellaneous Information Patient in critical care unit? Ass... Q361D .XX 11/17/17 20:45 11/17/17 20:45 (Dilaudid Pf Inj) 0.5 mg Q4H PRN IV 11/17/17 21:15 12/04/17 01:47 (Dilaudid Pf Inj) 0.2 mg Q4H PRN IV PUSH 11/17/17 21:15 12/03/17 04:18 Acetaminophen 100 ml @ 400 mls/hr Q8HR PRN IV 11/17/17 21:15 (Albuterol Neb) 2.5 mg Q2HR NEB PRN NEB 11/17/17 21:15 12/02/17 08:10 (Lelia-Colace) 1 tab BID PO 11/18/17 09:00 12/04/17 09:08 (Lactulose Liq) 30 ml DAILY PO 11/18/17 09:00 12/04/17 09:08 (Melatonin) 5 mg HS PRN PO 11/18/17 20:00 12/03/17 00:58 (Cordarone) 200 mg Q12H PO 11/26/17 05:00 12/04/17 05:29 (NovoLOG SUPPLEMENTAL SCALE) 1 ACHS SLIDING SCALE SQ 11/21/17 12:00 11/30/17 17:00 (D50w (Vial) Inj) 50 ml UNSCH PRN IV PUSH 11/21/17 09:30 (Glucagon Inj) 1 mg UNSCH PRN OTHER 11/21/17 09:30 (Ditropan) 5 mg Q12H PRN PO 11/22/17 18:00 11/22/17 18:04 (Proscar) 5 mg DAILY PO 11/26/17 09:00 12/04/17 09:09 Acetaminophen 100 ml @ 400 mls/hr Q6H PRN IV 11/26/17 11:30 11/26/17 11:58 (Protonix) 40 mg DAILY PO 11/29/17 09:00 12/04/17 09:08 Sodium Chloride 1,000 ml @ 50 mls/hr Q20H IV 11/28/17 17:00 Future Hold 11/28/17 16:59 (Lasix Inj) 20 mg BID@09,18 IV PUSH 11/30/17 18:00 12/04/17 09:10 ([employer] [place]) 2 spray Q6H PRN NASAL 12/01/17 18:15 (Oscal) 1,000 mg BID PO 12/02/17 21:00 12/04/17 09:08 (KCl) 20 meq DAILY PO 12/03/17 09:00 12/04/17 09:10 Aminocaproic Acid 3000 mg/Sodium Chloride 3,012 ml @ 0 mls/hr CONTINUOUS IRRIGATION 12/02/17 14:00 12/04/17 11:41 Assessment and Plan Assessment and Plan -Discussed with patient's family his current clinical status and hematuria with large bladder clot noted within the bladder -At this time, the patient's family is very hesitant to under go any further surgical intervention and they do understand the large bladder clot will not be able to be removed with surgery -In addition, given his recent RI and cardiac stents, Plavix is not able to be held -Therefore his current clinical situation may not improve, even with intervention to remove the large bladder clot as he may continue to bleed -Patient will need urgent/emergent cysto and clot evacuation if the catheter does not drain and his bladder becomes distended and painful. Family does understand this and would like to leave him as is for as long as possible -Alternatively, bilateral nephrostomy tubes may be placed to divert urine from the bladder. This may not be a good option given the Plavix -No surgical intervention at this time. Continue management with CBI and hand irrigation as needed -Will refer care back to [facility], Dr. Lee, tomorrow am 11/23/2017 Discussed ongoing management with Amicar CBI. Discussed that it may take up to 2 weeks for the urine to totally clear as patient is presently on anticoagulation therapy. We will irrigate CBI catheter as needed Once CBI discontinued, patient will require an indwelling Hernández catheter for an extended period of time to allow any residual clot material to dissolve. 11/25/2017 Persistent gross hematuria with bladder distention despite catheter change and irrigation We will keep patient n.p.o. We will bring patient to the cystoscopy suite for cystoscopy, clot evacuation and fulguration of any ongoing bleeding sites Risks and benefits discussed with patient and family 11/26/2017 Postop day #1 status post clot evacuation and fulguration to bladder neck region CBI running with clear output Wean off CBI as urine clears 11/27/2017 Resolving hematuria with CBI running at a slow rate Continue to titrate off CBI Suggest leaving Hernández catheter to gravity drainage for minimum of 1 week after hematuria fully resolved 11/30 82 y.o male with gross hematuria s/p clot evacuation and fulguration s/p RI with stenting on Plavix/ASA Urine is now clear Maintain hernández catheter OOB/Ambulate Encourage PO intake 12/01 82 y.o male with gross hematuria s/p clot evacuation and fulguration s/p RI with stenting on Plavix/ASA Urine is now clear; plug CBI port OOB/Ambulate PT and Dietary input appreciated 12/02 82 y.o male with gross hematuria s/p clot evacuation and fulguration s/p RI with stenting on Plavix/ASA Urine is now blood tinged with clots. Will restart Amicar CBI. OOB/Ambulate Irrigate hernández prn clots 12/03 82 y.o male with ongoing gross hematuria with clots on anticoagulation s/p RI with stenting Recommend trying anticoagulation therapy every other day to help resolve hematuria Continue Amicar CBI Irrigate catheter prn 12/04 82 y.o male with ongoing gross hematuria with clots on anticoagulation s/p RI with stenting Recommend trying anticoagulation therapy every other day to help resolve hematuria Continue Amicar CBI Irrigate catheter prn Rafita Lee DO Dec 04, 2017 13:02
--- NOTE | 2017-12-04 13:09 | HHI.PR ---
Subjective Remarks Follow-up hematuria/pulmonary infiltrates 11/28/17-patient seen and examined, positive for shortness of breath and currently on 4 L nasal cannula. Hematuria improving 11/29/17-patient seen and examined, overnight he went into respiratory failure for which he was transferred to ICU and treated with Lasix and BiPAP. This morning patient conditions and respiratory symptoms resolve. Case discussed with nephrology. Also discussed with patient's daughter was very unhappy about the care that her father has been receiving. 11/30/17-patient seen and examined, still reports some episode of dyspnea however much improved from 2 days ago. 12/01/17-patient seen and examined, states he is feeling better and denies any significant shortness of breath. Daughter by the bedside 12/02/17-patient seen and examined, chest US with Left sided PLEURAL EFFUSION, states he's feeling better and vitals stable 12/03/17-patient seen and examined, still with gross hematuria for which case was discussed with urology Dr. Eller at bedside 12/04/17-patient seen and examined, not evidence of gross hematuria ; no significant SOB Objective Vitals Vital Signs Date Time Temp Pulse Resp B/P (MAP) Pulse Ox O2 Delivery O2 Flow Rate FiO2 12/04/17 12:00 71 24 123/60 (81) 98 12/04/17 11:00 67 23 111/56 (74) 12/04/17 10:00 66 22 107/52 (70) 85 12/04/17 09:38 97 Nasal Cannula 1.00 12/04/17 09:00 65 23 124/60 (81) 97 12/04/17 08:00 98.6 60 16 116/56 (76) 98 12/04/17 06:00 61 12/04/17 04:00 59 12/04/17 04:00 98.4 61 12 134/63 (86) 100 12/04/17 02:00 57 12/04/17 00:00 74 12/04/17 00:00 98.4 74 55 108/54 (72) 89 12/03/17 22:00 64 12/03/17 20:00 62 12/03/17 20:00 98.8 62 14 118/58 (78) 98 12/03/17 18:00 70 12/03/17 17:00 61 12/03/17 16:00 97.9 59 17 102/56 (71) 95 12/03/17 16:00 59 12/03/17 15:00 59 12/03/17 15:00 59 14 109/54 (72) 98 12/03/17 14:00 63 17 109/52 (71) 100 12/03/17 14:00 63 I/O 12/03/17 12/03/17 12/03/17 12/04/17 12/04/17 12/04/17 07:00 15:00 23:00 07:00 15:00 23:00 Intake Total 220 ml 240 ml 350 ml Output Total 800 ml 950 ml 650 ml 500 ml Balance -580 ml -950 ml -410 ml -150 ml Intake Oral 220 ml 240 ml 350 ml Output Urine Total 800 ml 950 ml 650 ml 500 ml Bladder Scan Volume Amount 17 ml # Bowel Movements 0 Result Diagram: 12/04/17 0510 12/04/17 0510 Objective Remarks GENERAL: NAD SKIN: Warm and dry. HEAD: Normocephalic. EYES: No scleral icterus. No injection or drainage. NECK: Supple, trachea midline. No JVD or lymphadenopathy. CARDIOVASCULAR: Regular rate and rhythm without murmurs, gallops, or rubs. RESPIRATORY: Breath sounds decrease bilaterally. No accessory muscle use. GASTROINTESTINAL: Abdomen soft, non-tender, nondistended. MUSCULOSKELETAL: No cyanosis, or edema. BACK: Nontender without obvious deformity. No CVA tenderness. Procedures Catheterization A/P Problem List: (1) Gross hematuria ICD Code: R31.0 - Gross hematuria Status: Acute (2) Obstructive uropathy ICD Code: N13.9 - Obstructive and reflux uropathy, unspecified Status: Acute (3) Cardiomyopathy ICD Code: I42.9 - Cardiomyopathy, unspecified (4) CAD (coronary artery disease) ICD Code: I25.10 - Atherosclerotic heart disease of [place] coronary artery without angina pectoris (5) Hypertension ICD Code: I10 - Essential (primary) hypertension Status: Acute (6) BPH (benign prostatic hyperplasia) ICD Code: N40.0 - Benign prostatic hyperplasia without lower urinary tract symptoms Status: Acute (7) KIARA (acute kidney injury) ICD Code: N17.9 - Acute kidney failure, unspecified Assessment and Plan 82-year-old man with 1. Bladder spasm/Pain-Resolved Melatonin 5 mg daily at bedtime when necessary for insomnia Oxybutynin PRN, IV Tylenol as needed urology specialist following 2. COPD continue oxygen, Bronchodilator, Mucolytic, incentive spirometry 3. STEMI status post PCI LAD stent/V tach resolved/Lactic acidosis Aspirin 162 mg daily, Plavix 75 mg daily, Coreg 3.125 mg BID, Atorvastatin 10 mg daily, Amiodarone 200 mg every 12 hours Echocardiogram LVEF 35-40%. Anterior lateral wall akinesia. Not on Feliciano- In due to renal failure 11/18 Consulted EPS-medical management secondary to the criticality of the patient, plan for possible Life Vest/defibrillator 4. Elevated AST CT abdomen/pelvis earlier this hospitalization revealed right inguinal hernia without signs of strangulation, hiatal hernia, diverticulosis without diverticulitis and BPH 11/19 CT abdomen and pelvis repeated-no change right inguinal hernia containing loops of small and large bowel no mechanical obstruction now new bilateral pleural effusions. BPH 5. Gross Hematuria-Resolved/Status post cystoscopy and Fulguration/BPH/KIARA continue bladder irrigation with Amicar per urology. Urology requested that Plavix be given every other day s/p Cystoscopy, evacuation of clots and fulguration of bladder neck region continue Flomax, Leave Ma catheter to gravity drainage for minimum of 1 week after Hematuria fully resolved. 6. Leukocytosis ID specialist Off Cefepime and Diflucan 7. Acute blood loss anemia status post 5 units of PRBCs 8. Acute on chronic systolic CHF exacerbation Continue Lasix 20 mg IV twice a day FELICIANO inhibitor contraindicated secondary to worsening renal function 9. Respiratory failure-improved BiPAP when necessary 10. Left Pleural effusion Chest US with 380+cc Case discussed with IR; will monitor however consider US guided thoracentesis if no improvement Mark Horowitz MD Dec 04, 2017 13:09
--- NOTE | 2017-12-04 17:41 | PD.CARD.PN ---
Subjective Subjective Remarks asleep in nad Objective Medications Current Medications Medications (Trade) Dose Ordered Sig/Micheal Route Start Time Stop Time Status Last Admin (Narcan Inj) 0.4 mg UNSCH PRN IV PUSH 11/10/17 14:15 (Flomax) 0.4 mg DAILY PO 11/11/17 09:00 12/04/17 09:08 (Catapres) 0.1 mg Q6H PRN PO 11/10/17 18:15 11/11/17 20:52 Aminocaproic Acid 3000 mg/Sodium Chloride 3,012 ml @ 0 mls/hr UNSCH IRRIGATION 11/13/17 14:15 Future Hold 11/20/17 09:19 (NS Flush) 2 ml UNSCH PRN IV FLUSH 11/13/17 16:45 12/03/17 09:02 (NS Flush) 2 ml BID IV FLUSH 11/13/17 21:00 12/04/17 09:00 (Aspirin Chew) 162 mg DAILY PO 11/14/17 09:00 12/04/17 09:08 (Plavix) 75 mg DAILY PO 11/14/17 09:00 12/04/17 09:09 (Coreg) 3.125 mg BID PO 11/13/17 21:00 12/04/17 09:10 (Lipitor) 10 mg HS PO 11/13/17 21:00 12/03/17 20:09 (Zofran Inj) 4 mg Q6HR PRN IV PUSH 11/13/17 19:30 12/03/17 11:29 Aminocaproic Acid 1000 mg/Sodium Chloride 1,004 ml @ 0 mls/hr UNSCH IRRIGATION 11/14/17 17:00 Future Hold (Miralax) 17 gm DAILY PO 11/17/17 11:00 12/04/17 09:08 Miscellaneous Information Patient in critical care unit? Ass... Q361D .XX 11/17/17 20:45 11/17/17 20:45 (Dilaudid Pf Inj) 0.5 mg Q4H PRN IV 11/17/17 21:15 12/04/17 01:47 (Dilaudid Pf Inj) 0.2 mg Q4H PRN IV PUSH 11/17/17 21:15 12/03/17 04:18 Acetaminophen 100 ml @ 400 mls/hr Q8HR PRN IV 11/17/17 21:15 (Albuterol Neb) 2.5 mg Q2HR NEB PRN NEB 11/17/17 21:15 12/02/17 08:10 (Lelia-Colace) 1 tab BID PO 11/18/17 09:00 12/04/17 09:08 (Lactulose Liq) 30 ml DAILY PO 11/18/17 09:00 12/04/17 09:08 (Melatonin) 5 mg HS PRN PO 11/18/17 20:00 12/03/17 00:58 (Cordarone) 200 mg Q12H PO 11/26/17 05:00 12/04/17 05:29 (NovoLOG SUPPLEMENTAL SCALE) 1 ACHS SLIDING SCALE SQ 11/21/17 12:00 11/30/17 17:00 (D50w (Vial) Inj) 50 ml UNSCH PRN IV PUSH 11/21/17 09:30 (Glucagon Inj) 1 mg UNSCH PRN OTHER 11/21/17 09:30 (Ditropan) 5 mg Q12H PRN PO 11/22/17 18:00 11/22/17 18:04 (Proscar) 5 mg DAILY PO 11/26/17 09:00 12/04/17 09:09 Acetaminophen 100 ml @ 400 mls/hr Q6H PRN IV 11/26/17 11:30 11/26/17 11:58 (Protonix) 40 mg DAILY PO 11/29/17 09:00 12/04/17 09:08 Sodium Chloride 1,000 ml @ 50 mls/hr Q20H IV 11/28/17 17:00 Future Hold 11/28/17 16:59 (Lasix Inj) 20 mg BID@09,18 IV PUSH 11/30/17 18:00 12/04/17 17:20 (Leon Fransico [place]) 2 spray Q6H PRN NASAL 12/01/17 18:15 (Oscal) 1,000 mg BID PO 12/02/17 21:00 12/04/17 09:08 (KCl) 20 meq DAILY PO 12/03/17 09:00 12/04/17 09:10 Aminocaproic Acid 3000 mg/Sodium Chloride 3,012 ml @ 0 mls/hr CONTINUOUS IRRIGATION 12/02/17 14:00 12/04/17 16:56 Vital Signs / I&O Vital Signs Date Time Temp Pulse Resp B/P (MAP) Pulse Ox O2 Delivery O2 Flow Rate FiO2 12/04/17 17:00 61 12/04/17 16:00 64 12/04/17 15:00 63 12/04/17 14:00 65 12/04/17 13:01 63 12/04/17 13:00 64 12/04/17 12:00 71 24 123/60 (81) 98 12/04/17 12:00 71 12/04/17 11:00 67 12/04/17 11:00 67 23 111/56 (74) 12/04/17 10:00 66 12/04/17 10:00 66 22 107/52 (70) 85 12/04/17 09:38 97 Nasal Cannula 1.00 12/04/17 09:00 65 23 124/60 (81) 97 12/04/17 09:00 65 12/04/17 08:00 60 12/04/17 08:00 98.6 60 16 116/56 (76) 98 12/04/17 06:00 61 12/04/17 04:00 59 12/04/17 04:00 98.4 61 12 134/63 (86) 100 12/04/17 02:00 57 12/04/17 00:00 74 12/04/17 00:00 98.4 74 55 108/54 (72) 89 12/03/17 22:00 64 12/03/17 20:00 62 12/03/17 20:00 98.8 62 14 118/58 (78) 98 12/03/17 18:00 70 I/O 12/03/17 12/03/17 12/03/17 12/04/17 12/04/17 12/04/17 07:00 15:00 23:00 07:00 15:00 23:00 Intake Total 220 ml 240 ml 350 ml Output Total 800 ml 950 ml 650 ml 500 ml Balance -580 ml -950 ml -410 ml -150 ml Intake Oral 220 ml 240 ml 350 ml Output Urine Total 800 ml 950 ml 650 ml 500 ml Bladder Scan Volume Amount 17 ml 17 ml # Bowel Movements 0 Physical Exam GENERAL: SKIN: Warm and dry. HEAD: Normocephalic. EYES: No scleral icterus. No injection or drainage. NECK: Supple, trachea midline. No JVD or lymphadenopathy. CARDIOVASCULAR: Regular rate and rhythm without murmurs, gallops, or rubs. RESPIRATORY: Breath sounds equal bilaterally. No accessory muscle use. GASTROINTESTINAL: Abdomen soft, non-tender, nondistended. MUSCULOSKELETAL: No cyanosis, or edema. BACK: Nontender without obvious deformity. No CVA tenderness. Laboratory Laboratory Tests Test 12/04/17 05:10 White Blood Count 9.5 TH/MM3 Red Blood Count 3.10 MIL/MM3 Hemoglobin 9.4 GM/DL Hematocrit 27.5 % Mean Corpuscular Volume 88.7 FL Mean Corpuscular Hemoglobin 30.1 PG Mean Corpuscular Hemoglobin Concent 34.0 % Red Cell Distribution Width 15.0 % Platelet Count 235 TH/MM3 Mean Platelet Volume 8.9 FL Neutrophils (%) (Auto) 77.3 % Lymphocytes (%) (Auto) 15.9 % Monocytes (%) (Auto) 5.0 % Eosinophils (%) (Auto) 1.2 % Basophils (%) (Auto) 0.6 % Neutrophils # (Auto) 7.3 TH/MM3 Lymphocytes # (Auto) 1.5 TH/MM3 Monocytes # (Auto) 0.5 TH/MM3 Eosinophils # (Auto) 0.1 TH/MM3 Basophils # (Auto) 0.1 TH/MM3 CBC Comment DIFF FINAL Differential Comment Blood Urea Nitrogen 26 MG/DL Creatinine 2.39 MG/DL Random Glucose 89 MG/DL Total Protein 6.0 GM/DL Calcium Level 7.3 MG/DL Sodium Level 142 MEQ/L Potassium Level 3.5 MEQ/L Chloride Level 104 MEQ/L Carbon Dioxide Level 30.3 MEQ/L Anion Gap 8 MEQ/L Estimat Glomerular Filtration Rate 26 ML/MIN Protein Corrected Calcium 7.9 MG/DL B-Type Natriuretic Peptide 1358 PG/ML Assessment and Plan Problem List: (1) Cardiomyopathy ICD Codes: I42.9 - Cardiomyopathy, unspecified (2) CAD (coronary artery disease) ICD Codes: I25.10 - Atherosclerotic heart disease of [place] coronary artery without angina pectoris (3) Hematuria ICD Codes: R31.9 - Hematuria, unspecified Status: Acute (4) Gross hematuria ICD Codes: R31.0 - Gross hematuria Status: Acute Assessment and Plan 1.) CAD - pod# 21 primary pci, assymptomatic, continue aspirin, plavix, lipitor , coreg, dov held due ubstructive uopathy, arf and hypotension, transfuse prn to keep hgb> 9.0, d/w nurse, hematuria improving 2.) Wide complex tachycardia - discussed in detail with family, patient, Dr Yap , Dr Del Rio, DR Hernandez, nurse at bedside; on iv amio, f/u Dr Jackson; patient assymptomatic during event, trop continues to trend down, continue amiodarone 3.) Hypoxia - supsect chf excacerbated by volume overload related to arf, u/o and bnp improving, negative fluid balance, f/u bnp in am, d/w daughter and patient in detail at the bedside 4.) Cardiomyopathy - continue coreg, dov held due to arf, u/o good, in negative fluid balance over past 48 hrs, weight decreased from 75 kg to 71.5 kg, f/u bnp/ bmp Nathanael Kelley MD Dec 04, 2017 17:41
[2017-12-04] MEDS: ATORVASTATIN 10 MG TAB PO SCH (19:41)
[2017-12-05] VITALS (14 sets, daily range): BP systolic 98–129; BP diastolic 54–64; PULSE 57–71; RESP 16–22; TEMP 97.1–98.3; O2SAT 98–100
[2017-12-05 07:31] LABS: BICARBONATE 28.9 MEQ/L (21.0-32.0); CALCIUM 7.5 MG/DL (8.5-10.1); CREATININE 2.29 MG/DL (0.60-1.30); MAGNESIUM 1.7 MG/DL (1.5-2.5)
[2017-12-05] MEDS: INSULIN ASPART SUPPLEMENTAL SCALE SQ SCH ×4 (08:00→21:00)
[2017-12-05] MEDS: PANTOPRAZOLE SOD 40 MG DELAYED RELEASE TAB PO SCH (08:08)
[2017-12-05] MEDS: CALCIUM CARBONATE 1.25 GM (CA 500 MG) TAB PO SCH ×2 (08:08→21:07)
[2017-12-05] MEDS: DOCUSATE SODIUM 50 MG/SENNA 8.6 MG TAB PO SCH ×2 (08:08→21:11)
[2017-12-05] MEDS: FINASTERIDE 5 MG TAB PO SCH (08:08)
[2017-12-05] MEDS: CLOPIDOGREL 75 MG TAB PO SCH (08:08)
[2017-12-05] MEDS: ASPIRIN 81 MG CHEW TAB PO SCH (08:09)
[2017-12-05] MEDS: POTASSIUM CHLORIDE 20 MEQ CONTROLLED RELEASE TAB PO SCH (08:09)
[2017-12-05] MEDS: CARVEDILOL 3.125 MG TAB PO SCH ×2 (08:09→21:08)
[2017-12-05] MEDS: FUROSEMIDE 20 MG/2 ML VIAL IV PUSH SCH ×2 (08:09→15:42)
[2017-12-05] MEDS: TAMSULOSIN HCL 0.4 MG CAP PO SCH (08:09)
[2017-12-05] MEDS: LACTULOSE SYRUP 20 GM/30 ML CUP PO SCH (08:10)
[2017-12-05] MEDS: POLYETHYLENE GLYCOL 17 GM PKG PO SCH (08:10)
[2017-12-05] MEDS: SODIUM CHLORIDE 0.9% FLUSH 10 ML FLUSH IV FLUSH SCH ×2 (08:10→21:08)
[2017-12-05] MEDS: MAGNESIUM SULFATE 1 GM PREMIX 100 ML IV SCH ×2 (09:42→10:55)
[2017-12-05] MEDS: MAGNESIUM OXIDE 400 MG TAB PO SCH ×2 (09:42→21:10)
--- NOTE | 2017-12-05 09:56 | HHI.PR ---
Subjective Remarks No new complaints. Breathing improving per patient. Urine is henrik colored today. Objective Vital Signs Date Time Temp Pulse Resp B/P (MAP) Pulse Ox O2 Delivery O2 Flow Rate FiO2 12/05/17 08:00 98.1 65 16 116/58 (77) 100 12/05/17 08:00 65 12/05/17 06:00 63 12/05/17 04:00 66 12/05/17 04:00 98.1 68 20 129/61 (83) 98 12/05/17 02:00 64 12/05/17 00:00 71 12/05/17 00:00 98.2 62 22 119/64 (82) 98 12/04/17 22:00 59 12/04/17 20:21 94 Nasal Cannula 1.00 12/04/17 20:00 61 12/04/17 20:00 97.6 61 15 113/56 (75) 98 12/04/17 19:00 61 16 112/55 (74) 99 12/04/17 19:00 61 12/04/17 18:00 60 19 118/59 (78) 99 12/04/17 18:00 60 12/04/17 17:00 61 12/04/17 17:00 61 16 106/58 (74) 99 12/04/17 16:00 98.6 64 18 106/59 (75) 97 12/04/17 16:00 64 12/04/17 15:00 63 12/04/17 14:00 65 12/04/17 13:01 63 12/04/17 13:00 64 12/04/17 12:00 71 24 123/60 (81) 98 12/04/17 12:00 71 12/04/17 11:00 67 12/04/17 11:00 67 23 111/56 (74) 12/04/17 10:00 66 12/04/17 10:00 66 22 107/52 (70) 85 I/O 12/04/17 12/04/17 12/04/17 12/05/17 12/05/17 12/05/17 07:00 15:00 23:00 07:00 15:00 23:00 Intake Total 350 ml 620 ml 350 ml Output Total 500 ml 1000 ml Balance -150 ml 620 ml -650 ml Intake Oral 350 ml 620 ml 350 ml Output Urine Total 500 ml 1000 ml Bladder Scan Volume Amount 17 ml 17 ml # Bowel Movements 0 0 Result Diagram: 12/04/17 0510 12/05/17 0515 Procedures Cystoscopy, Fulguration and Bladder irrigation. A/P Problem List: (1) Pleural effusion ICD Code: J90 - Pleural effusion, not elsewhere classified (2) Hematuria ICD Code: R31.9 - Hematuria, unspecified Status: Acute Assessment and Plan 82-year-old maled admitted with hematuria. Hematuria Bladder Spasms Continue CBI Urology following PRN oxybutinin Continue Flomax Continue Catheter COPD Dyspnea Left Pleural Effusion Repeat CXR today Not an ideal candidate for thoracentesis Continue oxygen and nebulized treatments as needed Incentive Spirometry Mucolytic continued STEMI s/p LAD stent Resolved V-tach Resolved Lactic Acidosis Aspirin QOD Plavix Amiodarone Coreg Atorvastatin No dov due to KIARA Cardiology following Possible LifeVest/Defibrilator as needed per cardiology recommendations. Acute Blood Loss Anemia Downward trend in H/H 5 units PRBCs transfused during this visit thus far Follow CBC Chronic Systolic CHF Acute Exacerbation of CHF (resolved) Continue Lasix Transaminitis Follow LFTs DVT Prophylaxis SCDs Plavix Sen Copeland MD Dec 05, 2017 09:56
[2017-12-05] MEDS: AMINOCAPROIC ACID INJ 3,000 MG in SODIUM CHLORIDE 0.9% IRR BAG 3,000 ML IRRIGATION SCH ×2 (10:59→20:59)
--- NOTE | 2017-12-05 11:38 | RADRPT ---
EXAM DATE/TIME: 12/05/2017 11:13 [facility] COMPARISON: CHEST SINGLE AP, December 01, 2017, 8:15. INDICATIONS : Shortness of breath. MEDICAL HISTORY : Hypertension. BPH. SURGICAL HISTORY : Prostatectomy. ENCOUNTER: Subsequent ACUITY: 2 days PAIN SCORE: 0/10 LOCATION: Bilateral chest FINDINGS: There has been improved aeration of the lungs with residual infiltrates in the upper lobes and left l tina base. The heart is stable. CONCLUSION: Improved aeration of lungs with some residual infiltrates in the upper lobes and left lung base. Celestine Flanagan MD on December 05, 2017 at 11:35 Board Certified Radiologist. This report was verified electronically.
--- NOTE | 2017-12-05 12:29 | HHI.NPPN ---
Subjective Renal Problems: Hematuria Renal Failure: Acute History of Present Illness This is an 82-year-old male with a past medical history of hypertension, benign prostatic hypertrophy, history of TURP in 2006, possible history of mild chronic kidney disease with creatinine on presentation of 1.3 and remained in the range of 1.2 to 1.3 most of the time. He presented to the hospital and was admitted on 11/10 because of hematuria. Nephrology was called to see the patient because of elevated BUN and creatinine. The patient has been followed by Urology and the impression was the patient has possible prostatic bleeding and continue the Hernández catheter and irrigation (this was on admission), and continue the Flomax. It was recently found on the ultrasound of the kidneys, that he has intraluminal mass versus ___ _ in the urinary bladder. The creatinine has been gradually going up, and now it is 4.5. The patient has bloody urine and is to continue the bladder irrigation. He has nausea or vomiting, no history of diarrhea. The patient has all the cultures negative, and currently he is getting Diflucan and cefepime. Infectious Disease is following. Additional Remarks Patient is alert sitting up in bed. Hernández with hematuria CBI infusing. Review of Systems Respiratory Lungs: SOB Respiratory Remarks improved. Cardiovascular Cardiac Remarks denies any CP Gastrointestinal GI Remarks denies abdominal pain Objective Data Data Vital Signs Date Time Temp Pulse Resp B/P (MAP) Pulse Ox O2 Delivery O2 Flow Rate FiO2 12/05/17 10:00 61 12/05/17 08:05 100 21 12/05/17 08:00 98.1 65 16 116/58 (77) 100 12/05/17 08:00 65 12/05/17 06:00 63 12/05/17 04:00 66 12/05/17 04:00 98.1 68 20 129/61 (83) 98 12/05/17 02:00 64 12/05/17 00:00 71 12/05/17 00:00 98.2 62 22 119/64 (82) 98 12/04/17 22:00 59 12/04/17 20:21 94 Nasal Cannula 1.00 12/04/17 20:00 61 12/04/17 20:00 97.6 61 15 113/56 (75) 98 12/04/17 19:00 61 16 112/55 (74) 99 12/04/17 19:00 61 12/04/17 18:00 60 19 118/59 (78) 99 12/04/17 18:00 60 12/04/17 17:00 61 12/04/17 17:00 61 16 106/58 (74) 99 12/04/17 16:00 98.6 64 18 106/59 (75) 97 12/04/17 16:00 64 12/04/17 15:00 63 12/04/17 14:00 65 12/04/17 13:01 63 12/04/17 13:00 64 -: 12/04/17 0510 12/05/17 0515 Tubes & Lines: Hernández Physical Exam General Appearance: No Acute Distress, Comfortable Throat Throat Exam: Oral Mucosa [place] & Moist Pulmonary Resp Exam: Breath Sounds Equal, No Distress, Decreased Bases Cardiology CV Exam: Regular Gastrointestinal/Abdomen GI Exam: Bowel Sounds Present Genitourinary Exam: Flank Non-Tender Integumentary Skin Exam: Warm, Dry Extremeties Extremities Exam: No Edema Neurologic Neuro Exam: Alert, Awake Psychiatric Psych Exam: Appropriate Responses Assessment/Plan Discussed Condition With: Patient Assessment Summary: KIARA/Acute Renal Failure Electrolyte Assessment: Hypocalcemia Problem List: (1) KIARA (acute kidney injury) ICD Codes: N17.9 - Acute kidney failure, unspecified Plan: Acute kidney injury possibly related to obstruction or period of hypotension. 11/22: Renal ultrasound. Intraluminal mass versus debris within the urinary bladder completely encasing the Hernández catheter. Mass versus debris within the urinary bladder completely encasing the Hernández catheter. Simple right renal cyst. No evidence of hydronephrosis Urology is following the patient. S/p Cystoscopy 11/25 with clot removal and fulguration of bleeding sites. Plan Creatinine continues to improve with creatinine of 2.29 today CXR improved Continue Lasix BID Maintain indwelling Hernández catheter bladder irrigation resumed. Will follow BMP and monitor UOP. (2) Gross hematuria ICD Codes: R31.0 - Gross hematuria Status: Acute Plan: Indwelling hernández catheter. Urology consulted s/p Cystoscopy 11/25 (3) Obstructive uropathy ICD Codes: N13.9 - Obstructive and reflux uropathy, unspecified Status: Acute (4) BPH (benign prostatic hyperplasia) ICD Codes: N40.0 - Benign prostatic hyperplasia without lower urinary tract symptoms Status: Acute (5) Hypertension ICD Codes: I10 - Essential (primary) hypertension Status: Acute Plan: Well controlled Stephan Ybarra MD Dec 05, 2017 12:29
--- NOTE | 2017-12-05 12:45 | PD.CARD.PN ---
Subjective Subjective Remarks asleep in nad Objective Medications Current Medications Medications (Trade) Dose Ordered Sig/Micheal Route Start Time Stop Time Status Last Admin (Narcan Inj) 0.4 mg UNSCH PRN IV PUSH 11/10/17 14:15 (Flomax) 0.4 mg DAILY PO 11/11/17 09:00 12/05/17 08:09 (Catapres) 0.1 mg Q6H PRN PO 11/10/17 18:15 11/11/17 20:52 Aminocaproic Acid 3000 mg/Sodium Chloride 3,012 ml @ 0 mls/hr UNSCH IRRIGATION 11/13/17 14:15 Future Hold 11/20/17 09:19 (NS Flush) 2 ml UNSCH PRN IV FLUSH 11/13/17 16:45 12/03/17 09:02 (NS Flush) 2 ml BID IV FLUSH 11/13/17 21:00 12/05/17 08:10 (Aspirin Chew) 162 mg DAILY PO 11/14/17 09:00 12/05/17 08:09 (Coreg) 3.125 mg BID PO 11/13/17 21:00 12/05/17 08:09 (Lipitor) 10 mg HS PO 11/13/17 21:00 12/04/17 19:41 (Zofran Inj) 4 mg Q6HR PRN IV PUSH 11/13/17 19:30 12/03/17 11:29 Aminocaproic Acid 1000 mg/Sodium Chloride 1,004 ml @ 0 mls/hr UNSCH IRRIGATION 11/14/17 17:00 Future Hold (Miralax) 17 gm DAILY PO 11/17/17 11:00 12/05/17 08:10 Miscellaneous Information Patient in critical care unit? Ass... Q361D .XX 11/17/17 20:45 11/17/17 20:45 (Dilaudid Pf Inj) 0.5 mg Q4H PRN IV 11/17/17 21:15 12/04/17 01:47 (Dilaudid Pf Inj) 0.2 mg Q4H PRN IV PUSH 11/17/17 21:15 12/03/17 04:18 Acetaminophen 100 ml @ 400 mls/hr Q8HR PRN IV 11/17/17 21:15 (Albuterol Neb) 2.5 mg Q2HR NEB PRN NEB 11/17/17 21:15 12/02/17 08:10 (Lelia-Colace) 1 tab BID PO 11/18/17 09:00 12/05/17 08:08 (Lactulose Liq) 30 ml DAILY PO 11/18/17 09:00 12/05/17 08:10 (Melatonin) 5 mg HS PRN PO 11/18/17 20:00 12/03/17 00:58 (Cordarone) 200 mg Q12H PO 11/26/17 05:00 12/04/17 05:29 (NovoLOG SUPPLEMENTAL SCALE) 1 ACHS SLIDING SCALE SQ 11/21/17 12:00 11/30/17 17:00 (D50w (Vial) Inj) 50 ml UNSCH PRN IV PUSH 11/21/17 09:30 (Glucagon Inj) 1 mg UNSCH PRN OTHER 11/21/17 09:30 (Ditropan) 5 mg Q12H PRN PO 11/22/17 18:00 11/22/17 18:04 (Proscar) 5 mg DAILY PO 11/26/17 09:00 12/05/17 08:08 Acetaminophen 100 ml @ 400 mls/hr Q6H PRN IV 11/26/17 11:30 11/26/17 11:58 (Protonix) 40 mg DAILY PO 11/29/17 09:00 12/05/17 08:08 Sodium Chloride 1,000 ml @ 50 mls/hr Q20H IV 11/28/17 17:00 Future Hold 11/28/17 16:59 (Lasix Inj) 20 mg BID@09,18 IV PUSH 11/30/17 18:00 12/05/17 08:09 (Spark[place] Fransico [place]) 2 spray Q6H PRN NASAL 12/01/17 18:15 (Oscal) 1,000 mg BID PO 12/02/17 21:00 12/05/17 08:08 (KCl) 20 meq DAILY PO 12/03/17 09:00 12/05/17 08:09 Aminocaproic Acid 3000 mg/Sodium Chloride 3,012 ml @ 0 mls/hr CONTINUOUS IRRIGATION 12/02/17 14:00 12/05/17 10:59 (Mag-Ox) 400 mg Q12HR PO 12/05/17 10:00 12/05/17 09:42 (Plavix) 75 mg DAILY PO 12/06/17 09:00 Vital Signs / I&O Vital Signs Date Time Temp Pulse Resp B/P (MAP) Pulse Ox O2 Delivery O2 Flow Rate FiO2 12/05/17 12:00 57 12/05/17 12:00 97.1 57 17 98/56 (70) 100 12/05/17 10:00 61 12/05/17 08:05 100 21 12/05/17 08:00 98.1 65 16 116/58 (77) 100 12/05/17 08:00 65 12/05/17 06:00 63 12/05/17 04:00 66 12/05/17 04:00 98.1 68 20 129/61 (83) 98 12/05/17 02:00 64 12/05/17 00:00 71 12/05/17 00:00 98.2 62 22 119/64 (82) 98 12/04/17 22:00 59 12/04/17 20:21 94 Nasal Cannula 1.00 12/04/17 20:00 61 12/04/17 20:00 97.6 61 15 113/56 (75) 98 12/04/17 19:00 61 16 112/55 (74) 99 12/04/17 19:00 61 12/04/17 18:00 60 19 118/59 (78) 99 12/04/17 18:00 60 12/04/17 17:00 61 12/04/17 17:00 61 16 106/58 (74) 99 12/04/17 16:00 98.6 64 18 106/59 (75) 97 12/04/17 16:00 64 12/04/17 15:00 63 12/04/17 14:00 65 12/04/17 13:01 63 12/04/17 13:00 64 I/O 12/04/17 12/04/17 12/04/17 12/05/17 12/05/17 12/05/17 07:00 15:00 23:00 07:00 15:00 23:00 Intake Total 350 ml 620 ml 350 ml Output Total 500 ml 1000 ml Balance -150 ml 620 ml -650 ml Intake Oral 350 ml 620 ml 350 ml Output Urine Total 500 ml 1000 ml Bladder Scan Volume Amount 17 ml 17 ml # Bowel Movements 0 0 Physical Exam GENERAL: SKIN: Warm and dry. HEAD: Normocephalic. EYES: No scleral icterus. No injection or drainage. NECK: Supple, trachea midline. No JVD or lymphadenopathy. CARDIOVASCULAR: Regular rate and rhythm without murmurs, gallops, or rubs. RESPIRATORY: Breath sounds equal bilaterally. No accessory muscle use. GASTROINTESTINAL: Abdomen soft, non-tender, nondistended. MUSCULOSKELETAL: No cyanosis, or edema. BACK: Nontender without obvious deformity. No CVA tenderness. Laboratory Laboratory Tests Test 12/05/17 05:15 12/05/17 05:45 Blood Urea Nitrogen 24 MG/DL Creatinine 2.29 MG/DL Random Glucose 87 MG/DL Calcium Level 7.5 MG/DL Magnesium Level 1.7 MG/DL Sodium Level 141 MEQ/L Potassium Level 3.6 MEQ/L Chloride Level 103 MEQ/L Carbon Dioxide Level 28.9 MEQ/L Anion Gap 9 MEQ/L Estimat Glomerular Filtration Rate 27 ML/MIN B-Type Natriuretic Peptide 1034 PG/ML Assessment and Plan Problem List: (1) Cardiomyopathy ICD Codes: I42.9 - Cardiomyopathy, unspecified (2) CAD (coronary artery disease) ICD Codes: I25.10 - Atherosclerotic heart disease of [place] coronary artery without angina pectoris (3) Hematuria ICD Codes: R31.9 - Hematuria, unspecified Status: Acute (4) Gross hematuria ICD Codes: R31.0 - Gross hematuria Status: Acute Assessment and Plan 1.) CAD - pod# 22 primary pci, assymptomatic, continue aspirin, plavix, lipitor , coreg, dov held due ubstructive uopathy, arf and hypotension, transfuse prn to keep hgb> 9.0, d/w nurse, hematuria improving 2.) Wide complex tachycardia - discussed in detail with family, patient, Dr Yap , Dr Del Rio, DR Hernandez, nurse at bedside; on po amio, f/u Dr Jackson; patient assymptomatic during event, trop continues to trend down, continue amiodarone, supplement magnesium iv today and po 3.) Hypoxia - supsect chf excacerbated by volume overload related to arf, u/o and bnp improving, negative fluid balance, f/u bnp in am, d/w daughter and patient in detail at the bedside 4.) Cardiomyopathy - continue coreg, dov held due to arf, u/o good, in negative fluid balance over past 48 hrs, weight decreased from 75 kg to 71.0 kg, f/u bnp/ bmp Nathanael Kelley MD Dec 05, 2017 12:45
--- NOTE | 2017-12-05 15:25 | HHI.PR ---
Subjective Patient symptoms today Pt seen and examined. Few clots irrigated at bedside. Urine clearing Objective Vital Signs Vital Signs Date Time Temp Pulse Resp B/P (MAP) Pulse Ox O2 Delivery O2 Flow Rate FiO2 12/05/17 12:00 57 12/05/17 12:00 97.1 57 17 98/56 (70) 100 12/05/17 10:00 61 12/05/17 08:05 100 21 12/05/17 08:00 98.1 65 16 116/58 (77) 100 12/05/17 08:00 65 12/05/17 06:00 63 12/05/17 04:00 66 12/05/17 04:00 98.1 68 20 129/61 (83) 98 12/05/17 02:00 64 12/05/17 00:00 71 12/05/17 00:00 98.2 62 22 119/64 (82) 98 12/04/17 22:00 59 12/04/17 20:21 94 Nasal Cannula 1.00 12/04/17 20:00 61 12/04/17 20:00 97.6 61 15 113/56 (75) 98 12/04/17 19:00 61 16 112/55 (74) 99 12/04/17 19:00 61 12/04/17 18:00 60 19 118/59 (78) 99 12/04/17 18:00 60 12/04/17 17:00 61 12/04/17 17:00 61 16 106/58 (74) 99 12/04/17 16:00 98.6 64 18 106/59 (75) 97 12/04/17 16:00 64 Intake & Output 12/05/17 12/05/17 07:00 19:00 Intake Total 350 ml Output Total 1000 ml Balance -650 ml Intake Oral 350 ml Output Urine Total 1000 ml Result Diagram: 12/04/17 0510 12/05/17 0515 Objective Remarks CBI running at a slow rate with clear output Bladder not distended 11/30 Abd:soft,nt,nd Hernández with clear urine. 12/01 Abd:soft,nt,nd Ext: neg Hernández: urine clear 12/02 Abd:soft,nt,nd Ext: neg Hernández: urine blood tinged; few clots removed 12/03 Abd:soft,nt,nd Hernández: clots irrigated at bedside On CBI 12/04 Abd:soft,nt,nd Hernández: urine clearing; few clots irrigated at bedside 12/05 Abd:soft,nt,nd Hernánedz: urine clearing; few clots irrigated at bedside Medications and IVs Current Medications Medications (Trade) Dose Ordered Sig/Micheal Route Start Time Stop Time Status Last Admin (Narcan Inj) 0.4 mg UNSCH PRN IV PUSH 11/10/17 14:15 (Flomax) 0.4 mg DAILY PO 11/11/17 09:00 12/05/17 08:09 (Catapres) 0.1 mg Q6H PRN PO 11/10/17 18:15 11/11/17 20:52 Aminocaproic Acid 3000 mg/Sodium Chloride 3,012 ml @ 0 mls/hr UNSCH IRRIGATION 11/13/17 14:15 Future Hold 11/20/17 09:19 (NS Flush) 2 ml UNSCH PRN IV FLUSH 11/13/17 16:45 12/03/17 09:02 (NS Flush) 2 ml BID IV FLUSH 11/13/17 21:00 12/05/17 08:10 (Aspirin Chew) 162 mg DAILY PO 11/14/17 09:00 12/05/17 08:09 (Coreg) 3.125 mg BID PO 11/13/17 21:00 12/05/17 08:09 (Lipitor) 10 mg HS PO 11/13/17 21:00 12/04/17 19:41 (Zofran Inj) 4 mg Q6HR PRN IV PUSH 11/13/17 19:30 12/03/17 11:29 Aminocaproic Acid 1000 mg/Sodium Chloride 1,004 ml @ 0 mls/hr UNSCH IRRIGATION 11/14/17 17:00 Future Hold (Miralax) 17 gm DAILY PO 11/17/17 11:00 12/05/17 08:10 Miscellaneous Information Patient in critical care unit? Ass... Q361D .XX 11/17/17 20:45 11/17/17 20:45 (Dilaudid Pf Inj) 0.5 mg Q4H PRN IV 11/17/17 21:15 12/04/17 01:47 (Dilaudid Pf Inj) 0.2 mg Q4H PRN IV PUSH 11/17/17 21:15 12/03/17 04:18 Acetaminophen 100 ml @ 400 mls/hr Q8HR PRN IV 11/17/17 21:15 (Albuterol Neb) 2.5 mg Q2HR NEB PRN NEB 11/17/17 21:15 12/02/17 08:10 (Lelia-Colace) 1 tab BID PO 11/18/17 09:00 12/05/17 08:08 (Lactulose Liq) 30 ml DAILY PO 11/18/17 09:00 12/05/17 08:10 (Melatonin) 5 mg HS PRN PO 11/18/17 20:00 12/03/17 00:58 (Cordarone) 200 mg Q12H PO 11/26/17 05:00 12/04/17 05:29 (NovoLOG SUPPLEMENTAL SCALE) 1 ACHS SLIDING SCALE SQ 11/21/17 12:00 11/30/17 17:00 (D50w (Vial) Inj) 50 ml UNSCH PRN IV PUSH 11/21/17 09:30 (Glucagon Inj) 1 mg UNSCH PRN OTHER 11/21/17 09:30 (Ditropan) 5 mg Q12H PRN PO 11/22/17 18:00 11/22/17 18:04 (Proscar) 5 mg DAILY PO 11/26/17 09:00 12/05/17 08:08 Acetaminophen 100 ml @ 400 mls/hr Q6H PRN IV 11/26/17 11:30 11/26/17 11:58 (Protonix) 40 mg DAILY PO 11/29/17 09:00 12/05/17 08:08 Sodium Chloride 1,000 ml @ 50 mls/hr Q20H IV 11/28/17 17:00 Future Hold 11/28/17 16:59 (Lasix Inj) 20 mg BID@09,18 IV PUSH 11/30/17 18:00 12/05/17 08:09 ([place] Fransico [place]) 2 spray Q6H PRN NASAL 12/01/17 18:15 (Oscal) 1,000 mg BID PO 12/02/17 21:00 12/05/17 08:08 (KCl) 20 meq DAILY PO 12/03/17 09:00 12/05/17 08:09 Aminocaproic Acid 3000 mg/Sodium Chloride 3,012 ml @ 0 mls/hr CONTINUOUS IRRIGATION 12/02/17 14:00 12/05/17 10:59 (Mag-Ox) 400 mg Q12HR PO 12/05/17 10:00 12/05/17 09:42 (Plavix) 75 mg DAILY PO 12/06/17 09:00 Assessment and Plan Assessment and Plan -Discussed with patient's family his current clinical status and hematuria with large bladder clot noted within the bladder -At this time, the patient's family is very hesitant to under go any further surgical intervention and they do understand the large bladder clot will not be able to be removed with surgery -In addition, given his recent CO and cardiac stents, Plavix is not able to be held -Therefore his current clinical situation may not improve, even with intervention to remove the large bladder clot as he may continue to bleed -Patient will need urgent/emergent cysto and clot evacuation if the catheter does not drain and his bladder becomes distended and painful. Family does understand this and would like to leave him as is for as long as possible -Alternatively, bilateral nephrostomy tubes may be placed to divert urine from the bladder. This may not be a good option given the Plavix -No surgical intervention at this time. Continue management with CBI and hand irrigation as needed -Will refer care back to [facility], Dr. Lee, tomorrow am 11/23/2017 Discussed ongoing management with Amicar CBI. Discussed that it may take up to 2 weeks for the urine to totally clear as patient is presently on anticoagulation therapy. We will irrigate CBI catheter as needed Once CBI discontinued, patient will require an indwelling Hernández catheter for an extended period of time to allow any residual clot material to dissolve. 11/25/2017 Persistent gross hematuria with bladder distention despite catheter change and irrigation We will keep patient n.p.o. We will bring patient to the cystoscopy suite for cystoscopy, clot evacuation and fulguration of any ongoing bleeding sites Risks and benefits discussed with patient and family 11/26/2017 Postop day #1 status post clot evacuation and fulguration to bladder neck region CBI running with clear output Wean off CBI as urine clears 11/27/2017 Resolving hematuria with CBI running at a slow rate Continue to titrate off CBI Suggest leaving Hernández catheter to gravity drainage for minimum of 1 week after hematuria fully resolved 11/30 82 y.o male with gross hematuria s/p clot evacuation and fulguration s/p CO with stenting on Plavix/ASA Urine is now clear Maintain hernández catheter OOB/Ambulate Encourage PO intake 12/01 82 y.o male with gross hematuria s/p clot evacuation and fulguration s/p CO with stenting on Plavix/ASA Urine is now clear; plug CBI port OOB/Ambulate PT and Dietary input appreciated 12/02 82 y.o male with gross hematuria s/p clot evacuation and fulguration s/p CO with stenting on Plavix/ASA Urine is now blood tinged with clots. Will restart Amicar CBI. OOB/Ambulate Irrigate hernández prn clots 12/03 82 y.o male with ongoing gross hematuria with clots on anticoagulation s/p CO with stenting Recommend trying anticoagulation therapy every other day to help resolve hematuria Continue Amicar CBI Irrigate catheter prn 12/04 82 y.o male with ongoing gross hematuria with clots on anticoagulation s/p CO with stenting Recommend trying anticoagulation therapy every other day to help resolve hematuria Continue Amicar CBI Irrigate catheter prn 12/05 82 y.o male with ongoing gross hematuria with clots on anticoagulation s/p CO with stenting Recommend trying anticoagulation therapy every other day to help resolve hematuria Continue Amicar CBI Irrigate catheter prn Rafita Lee DO Dec 05, 2017 15:24
[2017-12-05] MEDS: AMIODARONE 200 MG TAB PO SCH (15:42)
[2017-12-05] MEDS: ATORVASTATIN 10 MG TAB PO SCH (21:08)
[2017-12-05 21:20] LABS: HEMATOCRIT 29.9 % (39.0-51.0); HEMOGLOBIN 10.4 GM/DL (13.0-17.0)
[2017-12-05 21:36] LABS: BICARBONATE 29.4 MEQ/L (21.0-32.0); CALCIUM 7.5 MG/DL (8.5-10.1); CREATININE 2.45 MG/DL (0.60-1.30)
[2017-12-06] VITALS (12 sets, daily range): BP systolic 97–124; BP diastolic 54–61; PULSE 62–78; RESP 12–21; TEMP 97.6–98.6; O2SAT 96–99
[2017-12-06] MEDS: AMIODARONE 200 MG TAB PO SCH ×2 (05:19→17:17)
[2017-12-06 06:35] LABS: AUTOMATED NEUTROPHIL # 7.3 TH/MM3 (1.8-7.7); BASOPHIL # 0.1 TH/MM3 (0-0.2); BASOPHIL % 0.7 % (0.0-2.0); EOSINOPHIL # 0.1 TH/MM3 (0-0.4); EOSINOPHIL % 0.9 % (0.0-4.0); HEMATOCRIT 30.1 % (39.0-51.0); LYMPH % 15.5 % (9.0-44.0); LYMPHOCYTE # 1.5 TH/MM3 (1.0-4.8); MEAN CELL VOLUME 90.8 FL (80.0-100.0); MEAN CORPUSCULAR HGB CONC 33.1 % (32.0-36.0); MEAN PLATELET VOLUME 9.4 FL (7.0-11.0); MONO % 5.9 % (0.0-8.0); MONOCYTE # 0.6 TH/MM3 (0-0.9); PLATELET COUNT 209 TH/MM3 (150-450); RED BLOOD COUNT 3.32 MIL/MM3 (4.50-5.90); RED CELL DISTRIBUTION WIDTH 14.9 % (11.6-17.2); WHITE BLOOD COUNT 9.5 TH/MM3 (4.0-11.0)
[2017-12-06] MEDS: AMINOCAPROIC ACID INJ 3,000 MG in SODIUM CHLORIDE 0.9% IRR BAG 3,000 ML IRRIGATION SCH (06:35)
[2017-12-06 06:58] LABS: AST (GOT) 17 U/L (15-37); BICARBONATE 28.4 MEQ/L (21.0-32.0); BLOOD UREA NITROGEN 26 MG/DL (7-18); CALCIUM 7.5 MG/DL (8.5-10.1); CHLORIDE 103 MEQ/L (98-107); CREATININE 2.33 MG/DL (0.60-1.30); GLOMERULAR FILTRATION RATE 27 ML/MIN (>89); GLUCOSE,RANDOM 108 MG/DL (74-106); MAGNESIUM 2.3 MG/DL (1.5-2.5); SODIUM (NA) 141 MEQ/L (136-145)
[2017-12-06 06:59] LABS: ALT (GPT) 13 U/L (12-78)
[2017-12-06 07:01] LABS: ALKALINE PHOSPHATASE 90 U/L (45-117); TOTAL BILIRUBIN ADULT 0.4 MG/DL (0.2-1.0); TOTAL PROTEIN 6.2 GM/DL (6.4-8.2)
[2017-12-06] MEDS: INSULIN ASPART SUPPLEMENTAL SCALE SQ SCH ×4 (08:00→21:00)
[2017-12-06] MEDS: FUROSEMIDE 20 MG/2 ML VIAL IV PUSH SCH ×2 (08:45→17:17)
[2017-12-06] MEDS: TAMSULOSIN HCL 0.4 MG CAP PO SCH (08:45)
[2017-12-06] MEDS: POTASSIUM CHLORIDE 20 MEQ CONTROLLED RELEASE TAB PO SCH (08:45)
[2017-12-06] MEDS: ASPIRIN 81 MG CHEW TAB PO SCH (08:46)
[2017-12-06] MEDS: CLOPIDOGREL 75 MG TAB PO SCH (08:46)
[2017-12-06] MEDS: LACTULOSE SYRUP 20 GM/30 ML CUP PO SCH (08:47)
[2017-12-06] MEDS: SODIUM CHLORIDE 0.9% FLUSH 10 ML FLUSH IV FLUSH SCH ×2 (08:47→21:00)
[2017-12-06] MEDS: FINASTERIDE 5 MG TAB PO SCH (08:47)
[2017-12-06] MEDS: CALCIUM CARBONATE 1.25 GM (CA 500 MG) TAB PO SCH ×2 (08:47→22:32)
[2017-12-06] MEDS: POLYETHYLENE GLYCOL 17 GM PKG PO SCH (08:47)
[2017-12-06] MEDS: DOCUSATE SODIUM 50 MG/SENNA 8.6 MG TAB PO SCH ×2 (08:47→22:35)
[2017-12-06] MEDS: MAGNESIUM OXIDE 400 MG TAB PO SCH ×2 (08:48→22:32)
[2017-12-06] MEDS: PANTOPRAZOLE SOD 40 MG DELAYED RELEASE TAB PO SCH (08:48)
[2017-12-06] MEDS: CARVEDILOL 3.125 MG TAB PO SCH ×2 (09:00→22:33)
--- NOTE | 2017-12-06 10:16 | HHI.PR ---
Subjective Patient symptoms today Pt seen and examined. Urine slowly clearing. No clots irrigated at bedside. Objective Vital Signs Vital Signs Date Time Temp Pulse Resp B/P (MAP) Pulse Ox O2 Delivery O2 Flow Rate FiO2 12/06/17 06:00 69 12/06/17 04:00 98.5 69 18 124/61 (82) 98 12/06/17 04:00 68 12/06/17 02:00 63 12/06/17 00:00 98.6 69 17 97/59 (72) 98 12/06/17 00:00 69 12/05/17 22:00 69 12/05/17 20:00 68 12/05/17 20:00 98.3 68 18 112/56 (74) 99 12/05/17 19:05 98 21 12/05/17 18:00 67 12/05/17 16:00 66 12/05/17 16:00 98.2 66 19 105/54 (71) 100 12/05/17 14:00 68 12/05/17 12:00 57 12/05/17 12:00 97.1 57 17 98/56 (70) 100 Intake & Output 12/06/17 12/06/17 07:00 19:00 Intake Total 820 ml Output Total 1900 ml Balance -1080 ml Intake Oral 720 ml IV Total 100 ml Output Urine Total 1900 ml Result Diagram: 12/06/17 0430 12/06/17 043 Objective Remarks CBI running at a slow rate with clear output Bladder not distended 11/30 Abd:soft,nt,nd Hernández with clear urine. 12/01 Abd:soft,nt,nd Ext: neg Hernández: urine clear 12/02 Abd:soft,nt,nd Ext: neg Hernández: urine blood tinged; few clots removed 12/03 Abd:soft,nt,nd Hernández: clots irrigated at bedside On CBI 12/04 Abd:soft,nt,nd Hernández: urine clearing; few clots irrigated at bedside 12/05 Abd:soft,nt,nd Hernández: urine clearing; few clots irrigated at bedside 12/06 Abd:soft,nt,nd Hernández; Urine clearing. No clots irrigated at bedside this AM Medications and IVs Current Medications Medications (Trade) Dose Ordered Sig/Micheal Route Start Time Stop Time Status Last Admin (Narcan Inj) 0.4 mg UNSCH PRN IV PUSH 11/10/17 14:15 (Flomax) 0.4 mg DAILY PO 11/11/17 09:00 12/06/17 08:45 (Catapres) 0.1 mg Q6H PRN PO 11/10/17 18:15 11/11/17 20:52 Aminocaproic Acid 3000 mg/Sodium Chloride 3,012 ml @ 0 mls/hr UNSCH IRRIGATION 11/13/17 14:15 Future Hold 11/20/17 09:19 (NS Flush) 2 ml UNSCH PRN IV FLUSH 11/13/17 16:45 12/03/17 09:02 (NS Flush) 2 ml BID IV FLUSH 11/13/17 21:00 12/06/17 08:47 (Aspirin Chew) 162 mg DAILY PO 11/14/17 09:00 12/06/17 08:46 (Coreg) 3.125 mg BID PO 11/13/17 21:00 12/05/17 21:08 (Lipitor) 10 mg HS PO 11/13/17 21:00 12/05/17 21:08 (Zofran Inj) 4 mg Q6HR PRN IV PUSH 11/13/17 19:30 12/03/17 11:29 Aminocaproic Acid 1000 mg/Sodium Chloride 1,004 ml @ 0 mls/hr UNSCH IRRIGATION 11/14/17 17:00 Future Hold (Miralax) 17 gm DAILY PO 11/17/17 11:00 12/06/17 08:47 Miscellaneous Information Patient in critical care unit? Ass... Q361D .XX 11/17/17 20:45 11/17/17 20:45 (Dilaudid Pf Inj) 0.5 mg Q4H PRN IV 11/17/17 21:15 12/04/17 01:47 (Dilaudid Pf Inj) 0.2 mg Q4H PRN IV PUSH 11/17/17 21:15 12/03/17 04:18 Acetaminophen 100 ml @ 400 mls/hr Q8HR PRN IV 11/17/17 21:15 (Albuterol Neb) 2.5 mg Q2HR NEB PRN NEB 11/17/17 21:15 12/02/17 08:10 (Lelia-Colace) 1 tab BID PO 11/18/17 09:00 12/06/17 08:47 (Lactulose Liq) 30 ml DAILY PO 11/18/17 09:00 12/06/17 08:47 (Melatonin) 5 mg HS PRN PO 11/18/17 20:00 12/03/17 00:58 (Cordarone) 200 mg Q12H PO 11/26/17 05:00 12/06/17 05:19 (NovoLOG SUPPLEMENTAL SCALE) 1 ACHS SLIDING SCALE SQ 11/21/17 12:00 11/30/17 17:00 (D50w (Vial) Inj) 50 ml UNSCH PRN IV PUSH 11/21/17 09:30 (Glucagon Inj) 1 mg UNSCH PRN OTHER 11/21/17 09:30 (Ditropan) 5 mg Q12H PRN PO 11/22/17 18:00 11/22/17 18:04 (Proscar) 5 mg DAILY PO 11/26/17 09:00 12/06/17 08:47 Acetaminophen 100 ml @ 400 mls/hr Q6H PRN IV 11/26/17 11:30 11/26/17 11:58 (Protonix) 40 mg DAILY PO 11/29/17 09:00 12/06/17 08:48 Sodium Chloride 1,000 ml @ 50 mls/hr Q20H IV 11/28/17 17:00 Future Hold 11/28/17 16:59 (Lasix Inj) 20 mg BID@09,18 IV PUSH 11/30/17 18:00 12/06/17 08:45 ([place] Fransico Kegley) 2 spray Q6H PRN NASAL 12/01/17 18:15 (Oscal) 1,000 mg BID PO 12/02/17 21:00 12/06/17 08:47 (KCl) 20 meq DAILY PO 12/03/17 09:00 12/06/17 08:45 Aminocaproic Acid 3000 mg/Sodium Chloride 3,012 ml @ 0 mls/hr CONTINUOUS IRRIGATION 12/02/17 14:00 12/06/17 06:35 (Mag-Ox) 400 mg Q12HR PO 12/05/17 10:00 12/06/17 08:48 (Plavix) 75 mg DAILY PO 12/06/17 09:00 12/06/17 08:46 Assessment and Plan Assessment and Plan -Discussed with patient's family his current clinical status and hematuria with large bladder clot noted within the bladder -At this time, the patient's family is very hesitant to under go any further surgical intervention and they do understand the large bladder clot will not be able to be removed with surgery -In addition, given his recent CO and cardiac stents, Plavix is not able to be held -Therefore his current clinical situation may not improve, even with intervention to remove the large bladder clot as he may continue to bleed -Patient will need urgent/emergent cysto and clot evacuation if the catheter does not drain and his bladder becomes distended and painful. Family does understand this and would like to leave him as is for as long as possible -Alternatively, bilateral nephrostomy tubes may be placed to divert urine from the bladder. This may not be a good option given the Plavix -No surgical intervention at this time. Continue management with CBI and hand irrigation as needed -Will refer care back to [facility], Dr. Lee, tomorrow am 11/23/2017 Discussed ongoing management with Amicar CBI. Discussed that it may take up to 2 weeks for the urine to totally clear as patient is presently on anticoagulation therapy. We will irrigate CBI catheter as needed Once CBI discontinued, patient will require an indwelling Hernández catheter for an extended period of time to allow any residual clot material to dissolve. 11/25/2017 Persistent gross hematuria with bladder distention despite catheter change and irrigation We will keep patient n.p.o. We will bring patient to the cystoscopy suite for cystoscopy, clot evacuation and fulguration of any ongoing bleeding sites Risks and benefits discussed with patient and family 11/26/2017 Postop day #1 status post clot evacuation and fulguration to bladder neck region CBI running with clear output Wean off CBI as urine clears 11/27/2017 Resolving hematuria with CBI running at a slow rate Continue to titrate off CBI Suggest leaving Hernández catheter to gravity drainage for minimum of 1 week after hematuria fully resolved 11/30 82 y.o male with gross hematuria s/p clot evacuation and fulguration s/p CO with stenting on Plavix/ASA Urine is now clear Maintain hernández catheter OOB/Ambulate Encourage PO intake 12/01 82 y.o male with gross hematuria s/p clot evacuation and fulguration s/p CO with stenting on Plavix/ASA Urine is now clear; plug CBI port OOB/Ambulate PT and Dietary input appreciated 12/02 82 y.o male with gross hematuria s/p clot evacuation and fulguration s/p CO with stenting on Plavix/ASA Urine is now blood tinged with clots. Will restart Amicar CBI. OOB/Ambulate Irrigate hernández prn clots 12/03 82 y.o male with ongoing gross hematuria with clots on anticoagulation s/p CO with stenting Recommend trying anticoagulation therapy every other day to help resolve hematuria Continue Amicar CBI Irrigate catheter prn 12/04 82 y.o male with ongoing gross hematuria with clots on anticoagulation s/p CO with stenting Recommend trying anticoagulation therapy every other day to help resolve hematuria Continue Amicar CBI Irrigate catheter prn 12/05 82 y.o male with ongoing gross hematuria with clots on anticoagulation s/p CO with stenting Recommend trying anticoagulation therapy every other day to help resolve hematuria Continue Amicar CBI Irrigate catheter prn 12/06 82 y.o male with ongoing gross hematuria with clots on anticoagulation s/p CO with stenting Hopeful void trial this week if urine continues to clear Rafita Lee DO Dec 06, 2017 10:16
--- NOTE | 2017-12-06 11:23 | HHI.PR ---
Subjective Remarks Patient reports some shortness of breath overnight and used oxygen at that time but this morning he is comfortable with room air. Urine is slightly medical scientist in color today compared to yesterday. No other new complaints from the patient. Objective Vital Signs Date Time Temp Pulse Resp B/P (MAP) Pulse Ox O2 Delivery O2 Flow Rate FiO2 12/06/17 06:00 69 12/06/17 04:00 98.5 69 18 124/61 (82) 98 12/06/17 04:00 68 12/06/17 02:00 63 12/06/17 00:00 98.6 69 17 97/59 (72) 98 12/06/17 00:00 69 12/05/17 22:00 69 12/05/17 20:00 68 12/05/17 20:00 98.3 68 18 112/56 (74) 99 12/05/17 19:05 98 21 12/05/17 18:00 67 12/05/17 16:00 66 12/05/17 16:00 98.2 66 19 105/54 (71) 100 12/05/17 14:00 68 12/05/17 12:00 57 12/05/17 12:00 97.1 57 17 98/56 (70) 100 I/O 12/05/17 12/05/17 12/05/17 12/06/17 12/06/17 12/06/17 07:00 15:00 23:00 07:00 15:00 23:00 Intake Total 350 ml 3112 ml 580 ml 720 ml Output Total 1000 ml 800 ml 1900 ml Balance -650 ml 3112 ml -220 ml -1180 ml Intake Oral 350 ml 480 ml 720 ml IV Total 3112 ml 100 ml Output Urine Total 1000 ml 800 ml 1900 ml Result Diagram: 12/06/17 0430 12/06/17 0430 Procedures Cystoscopy, Fulguration and Bladder irrigation. A/P Problem List: (1) Pleural effusion ICD Code: J90 - Pleural effusion, not elsewhere classified (2) Hematuria ICD Code: R31.9 - Hematuria, unspecified Status: Acute Assessment and Plan 82-year-old maled admitted with hematuria. Hematuria Bladder Spasms Slowly improving Continue CBI Urology following PRN oxybutinin Continue Flomax Continue Catheter COPD Dyspnea Left Pleural Effusion Repeat CXR yesterday shows no evidence of progression of effusion, possible regression. Not an ideal candidate for thoracentesis, but this does not appear to be needed at this time Continue oxygen and nebulized treatments as needed Incentive Spirometry Mucolytic continued STEMI s/p LAD stent Resolved V-tach Resolved Lactic Acidosis Aspirin QOD Plavix Amiodarone Coreg Atorvastatin No dov due to KIARA Cardiology following Possible LifeVest/Defibrilator as needed, need deferred to cardiology recommendations. Acute Blood Loss Anemia H&H shows improvement today. 5 units PRBCs transfused during this visit thus far Follow CBC Chronic Systolic CHF Acute Exacerbation of CHF (resolved) Continue Lasix Transaminitis Resolved. Weakness Deconditioning PT once off bed rest (on bed rest for hematuria) DVT Prophylaxis SCDs Plavix Discharge planning Global improvement is seen, discharge anticipated once bladder irrigation is no longer necessary and patient passes void trial. Family intends to bring Mr. Rodriguez back to [place] with them, to live with them Sen Copeland MD Dec 06, 2017 11:23
--- NOTE | 2017-12-06 11:46 | HHI.NPPN ---
Subjective Renal Problems: Hematuria Renal Failure: Acute History of Present Illness This is an 82-year-old male with a past medical history of hypertension, benign prostatic hypertrophy, history of TURP in 2006, possible history of mild chronic kidney disease with creatinine on presentation of 1.3 and remained in the range of 1.2 to 1.3 most of the time. He presented to the hospital and was admitted on 11/10 because of hematuria. Nephrology was called to see the patient because of elevated BUN and creatinine. The patient has been followed by Urology and the impression was the patient has possible prostatic bleeding and continue the Hernández catheter and irrigation (this was on admission), and continue the Flomax. It was recently found on the ultrasound of the kidneys, that he has intraluminal mass versus ___ _ in the urinary bladder. The creatinine has been gradually going up, and now it is 4.5. The patient has bloody urine and is to continue the bladder irrigation. He has nausea or vomiting, no history of diarrhea. The patient has all the cultures negative, and currently he is getting Diflucan and cefepime. Infectious Disease is following. Additional Remarks Patient is alert sitting up in bed. Hernández with CBI infusing. Review of Systems Respiratory Lungs: SOB Respiratory Remarks improved. Cardiovascular Cardiac Remarks denies any CP Gastrointestinal GI Remarks denies abdominal pain Objective Data Data Vital Signs Date Time Temp Pulse Resp B/P (MAP) Pulse Ox O2 Delivery O2 Flow Rate FiO2 12/06/17 06:00 69 12/06/17 04:00 98.5 69 18 124/61 (82) 98 12/06/17 04:00 68 12/06/17 02:00 63 12/06/17 00:00 98.6 69 17 97/59 (72) 98 12/06/17 00:00 69 12/05/17 22:00 69 12/05/17 20:00 68 12/05/17 20:00 98.3 68 18 112/56 (74) 99 12/05/17 19:05 98 21 12/05/17 18:00 67 12/05/17 16:00 66 12/05/17 16:00 98.2 66 19 105/54 (71) 100 12/05/17 14:00 68 12/05/17 12:00 57 12/05/17 12:00 97.1 57 17 98/56 (70) 100 -: 12/06/17 0430 12/06/17 0430 Tubes & Lines: Hernández Physical Exam General Appearance: No Acute Distress, Comfortable Throat Throat Exam: Oral Mucosa [place] & Moist Pulmonary Resp Exam: Breath Sounds Equal, No Distress, Decreased Bases Cardiology CV Exam: Regular Gastrointestinal/Abdomen GI Exam: Bowel Sounds Present Genitourinary Exam: Flank Non-Tender Integumentary Skin Exam: Warm, Dry Extremeties Extremities Exam: No Edema Neurologic Neuro Exam: Alert, Awake Psychiatric Psych Exam: Appropriate Responses Assessment/Plan Discussed Condition With: Patient Assessment Summary: KIARA/Acute Renal Failure Electrolyte Assessment: Hypocalcemia Problem List: (1) KIARA (acute kidney injury) ICD Codes: N17.9 - Acute kidney failure, unspecified Plan: Acute kidney injury possibly related to obstruction or period of hypotension. 11/22: Renal ultrasound. Intraluminal mass versus debris within the urinary bladder completely encasing the Hernández catheter. Mass versus debris within the urinary bladder completely encasing the Hernández catheter. Simple right renal cyst. No evidence of hydronephrosis Urology is following the patient. S/p Cystoscopy 11/25 with clot removal and fulguration of bleeding sites. Plan Creatinine continues to improve with creatinine of 2.3 today CXR improved Continue Lasix BID Maintain indwelling Hernández catheter bladder irrigation resumed. Will follow BMP and monitor UOP. Dr. Pal to follow (2) Gross hematuria ICD Codes: R31.0 - Gross hematuria Status: Acute Plan: Indwelling hernández catheter. Urology consulted s/p Cystoscopy 11/25 (3) Obstructive uropathy ICD Codes: N13.9 - Obstructive and reflux uropathy, unspecified Status: Acute (4) BPH (benign prostatic hyperplasia) ICD Codes: N40.0 - Benign prostatic hyperplasia without lower urinary tract symptoms Status: Acute (5) Hypertension ICD Codes: I10 - Essential (primary) hypertension Status: Acute Plan: Well controlled Stephan Ybarra MD Dec 06, 2017 11:46
--- NOTE | 2017-12-06 16:06 | PD.CARD.PN ---
Subjective Subjective Remarks alert in nad Objective Medications Current Medications Medications (Trade) Dose Ordered Sig/Micheal Route Start Time Stop Time Status Last Admin (Narcan Inj) 0.4 mg UNSCH PRN IV PUSH 11/10/17 14:15 (Flomax) 0.4 mg DAILY PO 11/11/17 09:00 12/06/17 08:45 (Catapres) 0.1 mg Q6H PRN PO 11/10/17 18:15 11/11/17 20:52 Aminocaproic Acid 3000 mg/Sodium Chloride 3,012 ml @ 0 mls/hr UNSCH IRRIGATION 11/13/17 14:15 Future Hold 11/20/17 09:19 (NS Flush) 2 ml UNSCH PRN IV FLUSH 11/13/17 16:45 12/03/17 09:02 (NS Flush) 2 ml BID IV FLUSH 11/13/17 21:00 12/06/17 08:47 (Aspirin Chew) 162 mg DAILY PO 11/14/17 09:00 12/06/17 08:46 (Coreg) 3.125 mg BID PO 11/13/17 21:00 12/05/17 21:08 (Lipitor) 10 mg HS PO 11/13/17 21:00 12/05/17 21:08 (Zofran Inj) 4 mg Q6HR PRN IV PUSH 11/13/17 19:30 12/03/17 11:29 Aminocaproic Acid 1000 mg/Sodium Chloride 1,004 ml @ 0 mls/hr UNSCH IRRIGATION 11/14/17 17:00 Future Hold (Miralax) 17 gm DAILY PO 11/17/17 11:00 12/06/17 08:47 Miscellaneous Information Patient in critical care unit? Ass... Q361D .XX 11/17/17 20:45 11/17/17 20:45 (Dilaudid Pf Inj) 0.5 mg Q4H PRN IV 11/17/17 21:15 12/04/17 01:47 (Dilaudid Pf Inj) 0.2 mg Q4H PRN IV PUSH 11/17/17 21:15 12/03/17 04:18 Acetaminophen 100 ml @ 400 mls/hr Q8HR PRN IV 11/17/17 21:15 (Albuterol Neb) 2.5 mg Q2HR NEB PRN NEB 11/17/17 21:15 12/02/17 08:10 (Lelia-Colace) 1 tab BID PO 11/18/17 09:00 12/06/17 08:47 (Lactulose Liq) 30 ml DAILY PO 11/18/17 09:00 12/06/17 08:47 (Melatonin) 5 mg HS PRN PO 11/18/17 20:00 12/03/17 00:58 (Cordarone) 200 mg Q12H PO 11/26/17 05:00 12/06/17 05:19 (NovoLOG SUPPLEMENTAL SCALE) 1 ACHS SLIDING SCALE SQ 11/21/17 12:00 11/30/17 17:00 (D50w (Vial) Inj) 50 ml UNSCH PRN IV PUSH 11/21/17 09:30 (Glucagon Inj) 1 mg UNSCH PRN OTHER 11/21/17 09:30 (Ditropan) 5 mg Q12H PRN PO 11/22/17 18:00 11/22/17 18:04 (Proscar) 5 mg DAILY PO 11/26/17 09:00 12/06/17 08:47 Acetaminophen 100 ml @ 400 mls/hr Q6H PRN IV 11/26/17 11:30 11/26/17 11:58 (Protonix) 40 mg DAILY PO 11/29/17 09:00 12/06/17 08:48 Sodium Chloride 1,000 ml @ 50 mls/hr Q20H IV 11/28/17 17:00 Future Hold 11/28/17 16:59 (Lasix Inj) 20 mg BID@09,18 IV PUSH 11/30/17 18:00 12/06/17 08:45 ([place] Fransico [place]) 2 spray Q6H PRN NASAL 12/01/17 18:15 (Oscal) 1,000 mg BID PO 12/02/17 21:00 12/06/17 08:47 (KCl) 20 meq DAILY PO 12/03/17 09:00 12/06/17 08:45 Aminocaproic Acid 3000 mg/Sodium Chloride 3,012 ml @ 0 mls/hr CONTINUOUS IRRIGATION 12/02/17 14:00 12/06/17 06:35 (Mag-Ox) 400 mg Q12HR PO 12/05/17 10:00 12/06/17 08:48 (Plavix) 75 mg DAILY PO 12/06/17 09:00 12/06/17 08:46 Vital Signs / I&O Vital Signs Date Time Temp Pulse Resp B/P (MAP) Pulse Ox O2 Delivery O2 Flow Rate FiO2 12/06/17 06:00 69 12/06/17 04:00 98.5 69 18 124/61 (82) 98 12/06/17 04:00 68 12/06/17 02:00 63 12/06/17 00:00 98.6 69 17 97/59 (72) 98 12/06/17 00:00 69 12/05/17 22:00 69 12/05/17 20:00 68 12/05/17 20:00 98.3 68 18 112/56 (74) 99 12/05/17 19:05 98 21 12/05/17 18:00 67 I/O 12/05/17 12/05/17 12/05/17 12/06/17 12/06/17 12/06/17 07:00 15:00 23:00 07:00 15:00 23:00 Intake Total 350 ml 3112 ml 580 ml 720 ml Output Total 1000 ml 800 ml 1900 ml Balance -650 ml 3112 ml -220 ml -1180 ml Intake Oral 350 ml 480 ml 720 ml IV Total 3112 ml 100 ml Output Urine Total 1000 ml 800 ml 1900 ml Physical Exam GENERAL: SKIN: Warm and dry. HEAD: Normocephalic. EYES: No scleral icterus. No injection or drainage. NECK: Supple, trachea midline. No JVD or lymphadenopathy. CARDIOVASCULAR: Regular rate and rhythm without murmurs, gallops, or rubs. RESPIRATORY: Breath sounds equal bilaterally. No accessory muscle use. GASTROINTESTINAL: Abdomen soft, non-tender, nondistended. MUSCULOSKELETAL: No cyanosis, or edema. BACK: Nontender without obvious deformity. No CVA tenderness. Laboratory Laboratory Tests Test 12/05/17 19:34 12/06/17 04:30 Hemoglobin 10.4 GM/DL 10.0 GM/DL Hematocrit 29.9 % 30.1 % Blood Urea Nitrogen 24 MG/DL 26 MG/DL Creatinine 2.45 MG/DL 2.33 MG/DL Random Glucose 126 MG/DL 108 MG/DL Calcium Level 7.5 MG/DL 7.5 MG/DL Sodium Level 141 MEQ/L 141 MEQ/L Potassium Level 4.0 MEQ/L 4.0 MEQ/L Chloride Level 102 MEQ/L 103 MEQ/L Carbon Dioxide Level 29.4 MEQ/L 28.4 MEQ/L Anion Gap 10 MEQ/L 10 MEQ/L Estimat Glomerular Filtration Rate 25 ML/MIN 27 ML/MIN White Blood Count 9.5 TH/MM3 Red Blood Count 3.32 MIL/MM3 Mean Corpuscular Volume 90.8 FL Mean Corpuscular Hemoglobin 30.0 PG Mean Corpuscular Hemoglobin Concent 33.1 % Red Cell Distribution Width 14.9 % Platelet Count 209 TH/MM3 Mean Platelet Volume 9.4 FL Neutrophils (%) (Auto) 77.0 % Lymphocytes (%) (Auto) 15.5 % Monocytes (%) (Auto) 5.9 % Eosinophils (%) (Auto) 0.9 % Basophils (%) (Auto) 0.7 % Neutrophils # (Auto) 7.3 TH/MM3 Lymphocytes # (Auto) 1.5 TH/MM3 Monocytes # (Auto) 0.6 TH/MM3 Eosinophils # (Auto) 0.1 TH/MM3 Basophils # (Auto) 0.1 TH/MM3 CBC Comment DIFF FINAL Differential Comment Total Protein 6.2 GM/DL Albumin 2.0 GM/DL Magnesium Level 2.3 MG/DL Alkaline Phosphatase 90 U/L Aspartate Amino Transf (AST/SGOT) 17 U/L Alanine Aminotransferase (ALT/SGPT) 13 U/L Total Bilirubin 0.4 MG/DL B-Type Natriuretic Peptide 932 PG/ML Assessment and Plan Problem List: (1) Cardiomyopathy ICD Codes: I42.9 - Cardiomyopathy, unspecified (2) CAD (coronary artery disease) ICD Codes: I25.10 - Atherosclerotic heart disease of [place] coronary artery without angina pectoris (3) Hematuria ICD Codes: R31.9 - Hematuria, unspecified Status: Acute (4) Gross hematuria ICD Codes: R31.0 - Gross hematuria Status: Acute Assessment and Plan 1.) CAD - pod# 23 primary pci, assymptomatic, continue aspirin, plavix, lipitor , coreg, dov held due ubstructive uopathy, arf and hypotension, transfuse prn to keep hgb> 9.0, d/w nurse, hematuria improving 2.) Wide complex tachycardia - discussed in detail with family, patient, Dr Yap , Dr Del Rio, DR Hernandez, nurse at bedside; on po amio, f/u Dr Jackson; patient assymptomatic during event, trop continues to trend down, continue amiodarone, supplement magnesium iv today and po 3.) Hypoxia - supsect chf excacerbated by volume overload related to arf, u/o and bnp improving, negative fluid balance, f/u bnp in am, d/w daughter and patient in detail at the bedside 4.) Cardiomyopathy - continue coreg, dov held due to arf, u/o good, in negative fluid balance over past 48 hrs, weight decreased from 75 kg to 69 kg which is his admission baseline weight, f/u bnp/bmp Nathanael Kelley MD Dec 06, 2017 16:06
[2017-12-06] MEDS: ATORVASTATIN 10 MG TAB PO SCH (22:35)
[2017-12-07] VITALS (22 sets, daily range): BP systolic 90–133; BP diastolic 52–64; PULSE 62–74; RESP 10–31; TEMP 97.4–98; O2SAT 88–100
[2017-12-07 05:35] LABS: AUTOMATED NEUTROPHIL # 6.1 TH/MM3 (1.8-7.7); BASOPHIL # 0.1 TH/MM3 (0-0.2); BASOPHIL % 0.7 % (0.0-2.0); EOSINOPHIL # 0.1 TH/MM3 (0-0.4); HEMATOCRIT 28.5 % (39.0-51.0); HEMOGLOBIN 9.6 GM/DL (13.0-17.0); LYMPH % 16.1 % (9.0-44.0); LYMPHOCYTE # 1.3 TH/MM3 (1.0-4.8); MEAN CELL VOLUME 90.1 FL (80.0-100.0); MEAN CORPUSCULAR HEMOGLOBIN 30.3 PG (27.0-34.0); MEAN CORPUSCULAR HGB CONC 33.7 % (32.0-36.0); MEAN PLATELET VOLUME 9.2 FL (7.0-11.0); MONO % 7.4 % (0.0-8.0); MONOCYTE # 0.6 TH/MM3 (0-0.9); NEUT % 74.8 % (16.0-70.0); PLATELET COUNT 201 TH/MM3 (150-450); RED BLOOD COUNT 3.16 MIL/MM3 (4.50-5.90); WHITE BLOOD COUNT 8.2 TH/MM3 (4.0-11.0)
[2017-12-07 05:37] LABS: ALT (GPT) 12 U/L (12-78); AST (GOT) 15 U/L (15-37); BICARBONATE 26.9 MEQ/L (21.0-32.0); BLOOD UREA NITROGEN 25 MG/DL (7-18); CALCIUM 7.5 MG/DL (8.5-10.1); CHLORIDE 107 MEQ/L (98-107); CREATININE 2.39 MG/DL (0.60-1.30); GLOMERULAR FILTRATION RATE 26 ML/MIN (>89); GLUCOSE,RANDOM 113 MG/DL (74-106); SODIUM (NA) 142 MEQ/L (136-145)
[2017-12-07 05:40] LABS: ALKALINE PHOSPHATASE 86 U/L (45-117); TOTAL BILIRUBIN ADULT 0.3 MG/DL (0.2-1.0); TOTAL PROTEIN 5.8 GM/DL (6.4-8.2)
[2017-12-07] MEDS: AMIODARONE 200 MG TAB PO SCH ×2 (06:39→16:44)
[2017-12-07] MEDS: INSULIN ASPART SUPPLEMENTAL SCALE SQ SCH ×4 (08:00→19:44)
--- NOTE | 2017-12-07 08:55 | HHI.PR ---
Subjective Patient symptoms today Pt seen and examined. Urine clear. Hernández removed. Objective Vital Signs Vital Signs Date Time Temp Pulse Resp B/P (MAP) Pulse Ox O2 Delivery O2 Flow Rate FiO2 12/07/17 08:13 99 Nasal Cannula 1.00 12/07/17 06:00 65 12/07/17 04:00 97.4 66 19 90/52 (65) 95 12/07/17 04:00 66 12/07/17 02:00 67 12/07/17 00:00 98.0 71 20 98/55 (69) 99 12/07/17 00:00 71 12/06/17 22:00 75 12/06/17 20:00 68 12/06/17 20:00 97.8 68 21 120/58 (78) 99 12/06/17 18:00 71 12/06/17 16:00 97.6 68 20 98/54 (69) 97 12/06/17 16:00 68 12/06/17 14:00 75 12/06/17 12:00 71 12/06/17 12:00 98.4 71 18 113/57 (75) 96 12/06/17 10:00 78 Intake & Output 12/07/17 12/07/17 07:00 19:00 Intake Total 480 ml Output Total 750 ml Balance -270 ml Intake Oral 480 ml Output Urine Total 750 ml Result Diagram: 12/07/17 0415 12/07/17 0415 Objective Remarks CBI running at a slow rate with clear output Bladder not distended 11/30 Abd:soft,nt,nd Hernández with clear urine. 12/01 Abd:soft,nt,nd Ext: neg Hernández: urine clear 12/02 Abd:soft,nt,nd Ext: neg Hernández: urine blood tinged; few clots removed 12/03 Abd:soft,nt,nd Hernández: clots irrigated at bedside On CBI 12/04 Abd:soft,nt,nd Hernández: urine clearing; few clots irrigated at bedside 12/05 Abd:soft,nt,nd Hernández: urine clearing; few clots irrigated at bedside 12/06 Abd:soft,nt,nd Hernández; Urine clearing. No clots irrigated at bedside this AM 12/07 Abd:soft,nt,nd Hernández removed. Urine was clear Medications and IVs Current Medications Medications (Trade) Dose Ordered Sig/Micheal Route Start Time Stop Time Status Last Admin (Narcan Inj) 0.4 mg UNSCH PRN IV PUSH 11/10/17 14:15 (Flomax) 0.4 mg DAILY PO 11/11/17 09:00 12/06/17 08:45 (Catapres) 0.1 mg Q6H PRN PO 11/10/17 18:15 11/11/17 20:52 Aminocaproic Acid 3000 mg/Sodium Chloride 3,012 ml @ 0 mls/hr UNSCH IRRIGATION 11/13/17 14:15 Future Hold 11/20/17 09:19 (NS Flush) 2 ml UNSCH PRN IV FLUSH 11/13/17 16:45 12/03/17 09:02 (NS Flush) 2 ml BID IV FLUSH 11/13/17 21:00 12/06/17 21:00 (Aspirin Chew) 162 mg DAILY PO 11/14/17 09:00 12/06/17 08:46 (Coreg) 3.125 mg BID PO 11/13/17 21:00 12/06/17 22:33 (Lipitor) 10 mg HS PO 11/13/17 21:00 12/06/17 22:35 (Zofran Inj) 4 mg Q6HR PRN IV PUSH 11/13/17 19:30 12/03/17 11:29 Aminocaproic Acid 1000 mg/Sodium Chloride 1,004 ml @ 0 mls/hr UNSCH IRRIGATION 11/14/17 17:00 Future Hold (Miralax) 17 gm DAILY PO 11/17/17 11:00 12/06/17 08:47 Miscellaneous Information Patient in critical care unit? Ass... Q361D .XX 11/17/17 20:45 11/17/17 20:45 (Dilaudid Pf Inj) 0.5 mg Q4H PRN IV 11/17/17 21:15 12/04/17 01:47 (Dilaudid Pf Inj) 0.2 mg Q4H PRN IV PUSH 11/17/17 21:15 12/03/17 04:18 Acetaminophen 100 ml @ 400 mls/hr Q8HR PRN IV 11/17/17 21:15 (Albuterol Neb) 2.5 mg Q2HR NEB PRN NEB 11/17/17 21:15 12/02/17 08:10 (Lelia-Colace) 1 tab BID PO 11/18/17 09:00 12/06/17 22:35 (Lactulose Liq) 30 ml DAILY PO 11/18/17 09:00 12/06/17 08:47 (Melatonin) 5 mg HS PRN PO 11/18/17 20:00 12/03/17 00:58 (Cordarone) 200 mg Q12H PO 11/26/17 05:00 12/07/17 06:39 (NovoLOG SUPPLEMENTAL SCALE) 1 ACHS SLIDING SCALE SQ 11/21/17 12:00 11/30/17 17:00 (D50w (Vial) Inj) 50 ml UNSCH PRN IV PUSH 11/21/17 09:30 (Glucagon Inj) 1 mg UNSCH PRN OTHER 11/21/17 09:30 (Ditropan) 5 mg Q12H PRN PO 11/22/17 18:00 11/22/17 18:04 (Proscar) 5 mg DAILY PO 11/26/17 09:00 12/06/17 08:47 Acetaminophen 100 ml @ 400 mls/hr Q6H PRN IV 11/26/17 11:30 11/26/17 11:58 (Protonix) 40 mg DAILY PO 11/29/17 09:00 12/06/17 08:48 Sodium Chloride 1,000 ml @ 50 mls/hr Q20H IV 11/28/17 17:00 Future Hold 11/28/17 16:59 (Lasix Inj) 20 mg BID@,18 IV PUSH 11/30/17 18:00 12/06/17 17:17 ([place] Fransico [place]) 2 spray Q6H PRN NASAL 12/01/17 18:15 (Oscal) 1,000 mg BID PO 12/02/17 21:00 12/06/17 22:32 (KCl) 20 meq DAILY PO 12/03/17 09:00 12/06/17 08:45 Aminocaproic Acid 3000 mg/Sodium Chloride 3,012 ml @ 0 mls/hr CONTINUOUS IRRIGATION 12/02/17 14:00 12/06/17 06:35 (Mag-Ox) 400 mg Q12HR PO 12/05/17 10:00 12/06/17 22:32 (Plavix) 75 mg DAILY PO 12/06/17 09:00 12/06/17 08:46 Assessment and Plan Assessment and Plan -Discussed with patient's family his current clinical status and hematuria with large bladder clot noted within the bladder -At this time, the patient's family is very hesitant to under go any further surgical intervention and they do understand the large bladder clot will not be able to be removed with surgery -In addition, given his recent CO and cardiac stents, Plavix is not able to be held -Therefore his current clinical situation may not improve, even with intervention to remove the large bladder clot as he may continue to bleed -Patient will need urgent/emergent cysto and clot evacuation if the catheter does not drain and his bladder becomes distended and painful. Family does understand this and would like to leave him as is for as long as possible -Alternatively, bilateral nephrostomy tubes may be placed to divert urine from the bladder. This may not be a good option given the Plavix -No surgical intervention at this time. Continue management with CBI and hand irrigation as needed -Will refer care back to [facility], Dr. Lee, tomorrow am 11/23/2017 Discussed ongoing management with Amicar CBI. Discussed that it may take up to 2 weeks for the urine to totally clear as patient is presently on anticoagulation therapy. We will irrigate CBI catheter as needed Once CBI discontinued, patient will require an indwelling Hernández catheter for an extended period of time to allow any residual clot material to dissolve. 11/25/2017 Persistent gross hematuria with bladder distention despite catheter change and irrigation We will keep patient n.p.o. We will bring patient to the cystoscopy suite for cystoscopy, clot evacuation and fulguration of any ongoing bleeding sites Risks and benefits discussed with patient and family 11/26/2017 Postop day #1 status post clot evacuation and fulguration to bladder neck region CBI running with clear output Wean off CBI as urine clears 11/27/2017 Resolving hematuria with CBI running at a slow rate Continue to titrate off CBI Suggest leaving Hernández catheter to gravity drainage for minimum of 1 week after hematuria fully resolved 11/30 82 y.o male with gross hematuria s/p clot evacuation and fulguration s/p CO with stenting on Plavix/ASA Urine is now clear Maintain hernández catheter OOB/Ambulate Encourage PO intake 12/01 82 y.o male with gross hematuria s/p clot evacuation and fulguration s/p CO with stenting on Plavix/ASA Urine is now clear; plug CBI port OOB/Ambulate PT and Dietary input appreciated 12/02 82 y.o male with gross hematuria s/p clot evacuation and fulguration s/p CO with stenting on Plavix/ASA Urine is now blood tinged with clots. Will restart Amicar CBI. OOB/Ambulate Irrigate hernández prn clots 12/03 82 y.o male with ongoing gross hematuria with clots on anticoagulation s/p CO with stenting Recommend trying anticoagulation therapy every other day to help resolve hematuria Continue Amicar CBI Irrigate catheter prn 12/04 82 y.o male with ongoing gross hematuria with clots on anticoagulation s/p CO with stenting Recommend trying anticoagulation therapy every other day to help resolve hematuria Continue Amicar CBI Irrigate catheter prn 12/05 82 y.o male with ongoing gross hematuria with clots on anticoagulation s/p CO with stenting Recommend trying anticoagulation therapy every other day to help resolve hematuria Continue Amicar CBI Irrigate catheter prn 12/06 82 y.o male with ongoing gross hematuria with clots on anticoagulation s/p CO with stenting Hopeful void trial this week if urine continues to clear 12/07 82 y.o male with ongoing gross hematuria with clots on anticoagulation s/p CO with stenting Void trial today Rafita Lee DO Dec 07, 2017 08:55
[2017-12-07] MEDS: DOCUSATE SODIUM 50 MG/SENNA 8.6 MG TAB PO SCH ×2 (09:00→19:43)
[2017-12-07] MEDS ORDERED: CLOPIDOGREL 75 MG TAB PO SCH (09:00)
[2017-12-07] MEDS: LACTULOSE SYRUP 20 GM/30 ML CUP PO SCH (09:00)
--- NOTE | 2017-12-07 09:30 | HHI.NPPN ---
Subjective Renal Problems: Hematuria Renal Failure: Acute History of Present Illness This is an 82-year-old male with a past medical history of hypertension, benign prostatic hypertrophy, history of TURP in 2006, possible history of mild chronic kidney disease with creatinine on presentation of 1.3 and remained in the range of 1.2 to 1.3 most of the time. He presented to the hospital and was admitted on 11/10 because of hematuria. Nephrology was called to see the patient because of elevated BUN and creatinine. The patient has been followed by Urology and the impression was the patient has possible prostatic bleeding and continue the Hernández catheter and irrigation (this was on admission), and continue the Flomax. It was recently found on the ultrasound of the kidneys, that he has intraluminal mass versus ___ _ in the urinary bladder. The creatinine has been gradually going up, and now it is 4.5. The patient has bloody urine and is to continue the bladder irrigation. He has nausea or vomiting, no history of diarrhea. The patient has all the cultures negative, and currently he is getting Diflucan and cefepime. Infectious Disease is following. Additional Remarks Patient is alert sitting up in bed. Son at bedside. Indwelling Hernández catheter removed. Denies SOB (Karen Ch) Review of Systems Respiratory Respiratory Remarks Denies SOB (Karen Ch) Cardiovascular Cardiac Remarks denies any CP (Karen Ch) Gastrointestinal GI Remarks denies abdominal pain (Karen Ch) Objective Data Data Vital Signs Date Time Temp Pulse Resp B/P (MAP) Pulse Ox O2 Delivery O2 Flow Rate FiO2 12/07/17 08:13 99 Nasal Cannula 1.00 12/07/17 06:00 65 12/07/17 04:00 97.4 66 19 90/52 (65) 95 12/07/17 04:00 66 12/07/17 02:00 67 12/07/17 00:00 98.0 71 20 98/55 (69) 99 12/07/17 00:00 71 12/06/17 22:00 75 12/06/17 20:00 68 12/06/17 20:00 97.8 68 21 120/58 (78) 99 12/06/17 18:00 71 12/06/17 16:00 97.6 68 20 98/54 (69) 97 12/06/17 16:00 68 12/06/17 14:00 75 12/06/17 12:00 71 12/06/17 12:00 98.4 71 18 113/57 (75) 96 12/06/17 10:00 78 (Karen Ch) -: 12/07/17 0415 12/07/17 0415 Physical Exam General Appearance: No Acute Distress, Comfortable (Karen Ch) Throat Throat Exam: Oral Mucosa [place] & Moist (Karen Ch) Pulmonary Resp Exam: Breath Sounds Equal, No Distress, Decreased Bases (Karen Ch) Cardiology CV Exam: Regular (Karen Ch) Gastrointestinal/Abdomen GI Exam: Bowel Sounds Present (Karen Ch) Genitourinary Exam: Flank Non-Tender (Karen Ch) Integumentary Skin Exam: Warm, Dry (Karen Ch) Extremeties Extremities Exam: No Edema (Karen Ch) Neurologic Neuro Exam: Alert, Awake (Karen Ch) Psychiatric Psych Exam: Appropriate Responses (Karen Ch) Assessment/Plan Discussed Condition With: Patient Assessment Summary: KIARA/Acute Renal Failure Electrolyte Assessment: Hypocalcemia Problem List: (1) KIARA (acute kidney injury) ICD Codes: N17.9 - Acute kidney failure, unspecified Plan: Acute kidney injury possibly related to obstruction or period of hypotension. 11/22: Renal ultrasound. Intraluminal mass versus debris within the urinary bladder completely encasing the Hernández catheter. Mass versus debris within the urinary bladder completely encasing the Hernández catheter. Simple right renal cyst. No evidence of hydronephrosis Urology is following the patient. S/p Cystoscopy 11/25 with clot removal and fulguration of bleeding sites. Creatinine continues to remain stable at 2.39 Plan Continue Lasix BID Continue Flomax Indwelling hernándze catheter removed and condom cath on Will follow BMP and monitor UOP. (2) Gross hematuria ICD Codes: R31.0 - Gross hematuria Status: Acute Plan: s/p Cystoscopy 11/25 (3) Obstructive uropathy ICD Codes: N13.9 - Obstructive and reflux uropathy, unspecified Status: Acute (4) BPH (benign prostatic hyperplasia) ICD Codes: N40.0 - Benign prostatic hyperplasia without lower urinary tract symptoms Status: Acute (5) Hypertension ICD Codes: I10 - Essential (primary) hypertension Status: Acute Plan: Well controlled (Karen Ch) Problem List: (1) KIARA (acute kidney injury) ICD Codes: N17.9 - Acute kidney failure, unspecified Plan: Acute kidney injury possibly related to obstruction or period of hypotension. 11/22: Renal ultrasound. Intraluminal mass versus debris within the urinary bladder completely encasing the Hernández catheter. Mass versus debris within the urinary bladder completely encasing the Hernández catheter. Simple right renal cyst. No evidence of hydronephrosis Urology is following the patient. S/p Cystoscopy 11/25 with clot removal and fulguration of bleeding sites. Creatinine continues to remain stable at 2.39 Plan Continue Lasix BID Continue Flomax Indwelling hernández catheter removed and condom cath on Will follow BMP and monitor UOP. Patient seen and examine, agree with above. Creatinine is stable, if D/C, to follow with Nephrology. (2) Gross hematuria ICD Codes: R31.0 - Gross hematuria Status: Acute Plan: s/p Cystoscopy 11/25 (3) Obstructive uropathy ICD Codes: N13.9 - Obstructive and reflux uropathy, unspecified Status: Acute (4) BPH (benign prostatic hyperplasia) ICD Codes: N40.0 - Benign prostatic hyperplasia without lower urinary tract symptoms Status: Acute (5) Hypertension ICD Codes: I10 - Essential (primary) hypertension Status: Acute Plan: Well controlled (Ashley Pal MD) Karen Ch Dec 07, 2017 09:30 Ashley Pal MD Dec 08, 2017 21:53
--- NOTE | 2017-12-07 09:35 | RADRPT ---
EXAM DATE/TIME: 12/07/2017 09:04 [facility] COMPARISON: US CHEST LEFT, December 01, 2017, 14:36. INDICATIONS : Evaluate for left pleural effusion. MEDICAL HISTORY : Hypertension. Dyspnea. Hematuria. SURGICAL HISTORY : Prostatectomy. ENCOUNTER: Subsequent ACUITY: 4-6 days PAIN SCORE: 0/10 LOCATION: Left chest MEASUREMENTS: SKIN TO PARIETAL PLEURA: Inadequate fluid SKIN TO MAX SAFE DEPTH: Inadequate fluid ESTIMATED FLUID VOLUME: 88 cc FLUID COMPOSITION: simple FINDINGS: No marking was performed. <Only minimal fluid was present estimated at 88 cc.> CONCLUSION: 1. Minimal left effusion. Ravinder López MD on December 07, 2017 at 9:32 Board Certified Radiologist. This report was verified electronically.
[2017-12-07] MEDS: CALCIUM CARBONATE 1.25 GM (CA 500 MG) TAB PO SCH ×2 (10:32→19:41)
[2017-12-07] MEDS: FINASTERIDE 5 MG TAB PO SCH (10:33)
[2017-12-07] MEDS: PANTOPRAZOLE SOD 40 MG DELAYED RELEASE TAB PO SCH (10:33)
[2017-12-07] MEDS: CARVEDILOL 3.125 MG TAB PO SCH ×2 (10:33→19:40)
[2017-12-07] MEDS: ASPIRIN 81 MG CHEW TAB PO SCH (10:33)
[2017-12-07] MEDS: TAMSULOSIN HCL 0.4 MG CAP PO SCH (10:34)
[2017-12-07] MEDS: POTASSIUM CHLORIDE 20 MEQ CONTROLLED RELEASE TAB PO SCH (10:34)
[2017-12-07] MEDS: MAGNESIUM OXIDE 400 MG TAB PO SCH ×2 (10:34→19:40)
[2017-12-07] MEDS: CLOPIDOGREL 75 MG TAB PO SCH (10:34)
[2017-12-07] MEDS: POLYETHYLENE GLYCOL 17 GM PKG PO SCH (10:34)
[2017-12-07] MEDS: FUROSEMIDE 20 MG/2 ML VIAL IV PUSH SCH ×2 (10:38→16:44)
[2017-12-07] MEDS: SODIUM CHLORIDE 0.9% FLUSH 10 ML FLUSH IV FLUSH SCH ×2 (10:38→19:43)
[2017-12-07] MEDS: SULFAMETHOXAZOLE-TRIMETHOPRIM DS 800-160 MG TAB PO SCH ×2 (13:16→19:40)
--- NOTE | 2017-12-07 14:58 | HHI.PR ---
Subjective Remarks Patient has had his Ma catheter removed. Now has a condom catheter. Family is wanting to take him home to [place] to do rehab there probably with what sounds like outpatient physical therapy We will get a.m. labs Hopefully can be discharged in the next 24-48 hours Objective Vitals Vital Signs Date Time Temp Pulse Resp B/P (MAP) Pulse Ox O2 Delivery O2 Flow Rate FiO2 12/07/17 14:00 67 22 12/07/17 14:00 67 12/07/17 13:00 74 30 100 12/07/17 12:00 68 12/07/17 12:00 97.5 68 31 117/63 (81) 100 12/07/17 11:00 65 24 126/60 (82) 100 12/07/17 10:01 68 31 119/58 (78) 88 12/07/17 10:00 66 12/07/17 10:00 66 25 98 12/07/17 09:01 67 16 133/61 (85) 99 12/07/17 09:00 70 13 98 12/07/17 08:13 99 Nasal Cannula 1.00 12/07/17 08:00 63 12/07/17 08:00 97.6 63 17 101/57 (72) 99 12/07/17 07:00 62 17 115/59 (77) 100 12/07/17 06:00 65 12/07/17 06:00 65 13 113/55 (74) 97 12/07/17 05:00 64 10 113/64 (80) 97 12/07/17 04:00 97.4 66 19 90/52 (65) 95 12/07/17 04:00 66 12/07/17 02:00 67 12/07/17 00:00 98.0 71 20 98/55 (69) 99 12/07/17 00:00 71 12/06/17 22:00 75 12/06/17 20:00 68 12/06/17 20:00 97.8 68 21 120/58 (78) 99 12/06/17 18:00 71 12/06/17 16:00 97.6 68 20 98/54 (69) 97 12/06/17 16:00 68 I/O 12/06/17 12/06/17 12/06/17 12/07/17 12/07/17 12/07/17 07:00 15:00 23:00 07:00 15:00 23:00 Intake Total 720 ml 480 ml 480 ml Output Total 1900 ml 900 ml 750 ml Balance -1180 ml -420 ml -270 ml Intake Oral 720 ml 480 ml 480 ml Output Urine Total 1900 ml 900 ml 750 ml Result Diagram: 12/07/17 0415 12/07/17 0415 Other Results Laboratory Tests Test 12/05/17 05:15 12/05/17 05:45 12/05/17 19:34 12/06/17 04:30 Blood Urea Nitrogen 24 MG/DL 24 MG/DL 26 MG/DL Creatinine 2.29 MG/DL 2.45 MG/DL 2.33 MG/DL Random Glucose 87 MG/DL 126 MG/DL 108 MG/DL Calcium Level 7.5 MG/DL 7.5 MG/DL 7.5 MG/DL Magnesium Level 1.7 MG/DL 2.3 MG/DL Sodium Level 141 MEQ/L 141 MEQ/L 141 MEQ/L Potassium Level 3.6 MEQ/L 4.0 MEQ/L 4.0 MEQ/L Chloride Level 103 MEQ/L 102 MEQ/L 103 MEQ/L Carbon Dioxide Level 28.9 MEQ/L 29.4 MEQ/L 28.4 MEQ/L Anion Gap 9 MEQ/L 10 MEQ/L 10 MEQ/L Estimat Glomerular Filtration Rate 27 ML/MIN 25 ML/MIN 27 ML/MIN B-Type Natriuretic Peptide 1034 PG/ML 932 PG/ML Hemoglobin 10.4 GM/DL 10.0 GM/DL Hematocrit 29.9 % 30.1 % White Blood Count 9.5 TH/MM3 Red Blood Count 3.32 MIL/MM3 Mean Corpuscular Volume 90.8 FL Mean Corpuscular Hemoglobin 30.0 PG Mean Corpuscular Hemoglobin Concent 33.1 % Red Cell Distribution Width 14.9 % Platelet Count 209 TH/MM3 Mean Platelet Volume 9.4 FL Neutrophils (%) (Auto) 77.0 % Lymphocytes (%) (Auto) 15.5 % Monocytes (%) (Auto) 5.9 % Eosinophils (%) (Auto) 0.9 % Basophils (%) (Auto) 0.7 % Neutrophils # (Auto) 7.3 TH/MM3 Lymphocytes # (Auto) 1.5 TH/MM3 Monocytes # (Auto) 0.6 TH/MM3 Eosinophils # (Auto) 0.1 TH/MM3 Basophils # (Auto) 0.1 TH/MM3 CBC Comment DIFF FINAL Differential Comment Total Protein 6.2 GM/DL Albumin 2.0 GM/DL Alkaline Phosphatase 90 U/L Aspartate Amino Transf (AST/SGOT) 17 U/L Alanine Aminotransferase (ALT/SGPT) 13 U/L Total Bilirubin 0.4 MG/DL Test 12/07/17 04:15 White Blood Count 8.2 TH/MM3 Red Blood Count 3.16 MIL/MM3 Hemoglobin 9.6 GM/DL Hematocrit 28.5 % Mean Corpuscular Volume 90.1 FL Mean Corpuscular Hemoglobin 30.3 PG Mean Corpuscular Hemoglobin Concent 33.7 % Red Cell Distribution Width 15.0 % Platelet Count 201 TH/MM3 Mean Platelet Volume 9.2 FL Neutrophils (%) (Auto) 74.8 % Lymphocytes (%) (Auto) 16.1 % Monocytes (%) (Auto) 7.4 % Eosinophils (%) (Auto) 1.0 % Basophils (%) (Auto) 0.7 % Neutrophils # (Auto) 6.1 TH/MM3 Lymphocytes # (Auto) 1.3 TH/MM3 Monocytes # (Auto) 0.6 TH/MM3 Eosinophils # (Auto) 0.1 TH/MM3 Basophils # (Auto) 0.1 TH/MM3 CBC Comment DIFF FINAL Differential Comment Blood Urea Nitrogen 25 MG/DL Creatinine 2.39 MG/DL Random Glucose 113 MG/DL Total Protein 5.8 GM/DL Albumin 2.0 GM/DL Calcium Level 7.5 MG/DL Alkaline Phosphatase 86 U/L Aspartate Amino Transf (AST/SGOT) 15 U/L Alanine Aminotransferase (ALT/SGPT) 12 U/L Total Bilirubin 0.3 MG/DL Sodium Level 142 MEQ/L Potassium Level 4.0 MEQ/L Chloride Level 107 MEQ/L Carbon Dioxide Level 26.9 MEQ/L Anion Gap 8 MEQ/L Estimat Glomerular Filtration Rate 26 ML/MIN B-Type Natriuretic Peptide 740 PG/ML Imaging Last Impressions Chest X-Ray 12/05/17 0000 Signed Impressions: Service Date/Time: Tuesday, December 05, 2017 11:13 - CONCLUSION: Improved aeration of lungs with some residual infiltrates in the upper lobes and left lung base. Celestine Flanagan MD Chest Ultrasound 12/01/17 0000 Signed Impressions: Service Date/Time: Friday, December 01, 2017 14:36 - CONCLUSION: Left-sided pleural effusion. Amador Leiva MD Abdomen X-Ray 11/25/17 0000 Signed Impressions: Service Date/Time: Saturday, November 25, 2017 11:39 - CONCLUSION: 1. No calcified stones seen. 2. Nonspecific abdominal bowel gas pattern with diffuse gas containing minimally distended loops of small bowel. Jesus Martinez MD Renal Ultrasound 11/22/17 0000 Signed Impressions: Service Date/Time: Wednesday, November 22, 2017 10:23 - CONCLUSION: 1. Intraluminal mass versus debris within the urinary bladder completely encasing the Ma catheter. 2. Simple right renal cyst. 3. No evidence of hydronephrosis. Isaias Hanna MD Chest CT 11/20/17 0000 Signed Impressions: Service Date/Time: Monday, November 20, 2017 22:03 - CONCLUSION: Diffuse confluent airspace opacities throughout both lungs obscuring portions of the right middle lobe. There is associated large bilateral pleural effusions. Jesus Martinez MD Abdomen/Pelvis CT 11/19/17 0819 Signed Impressions: Service Date/Time: November 09:06 - CONCLUSION: 1. The bowel gas pattern remains within normal limits. No mechanical obstruction. 2. There is a right inguinal hernia containing loops of small and large bowel without obstruction. 3. There is a Ma catheter in urinary bladder. However, the balloon on the Ma catheter appears to be inflated within the prostatic urethra. This may need to be adjusted. 4. There continues to be mixed density within the urinary bladder as well as air. This is not significantly changed compared to the prior exam. 5. Diffuse enlargement of the prostate gland. 6. New bilateral pleural effusions as well as bibasilar infiltrates. Amador Leiva MD Objective Remarks GENERAL: Awake alert and oriented 3 intact talkative and cooperative SKIN: Warm and dry. HEAD: Atraumatic. Normocephalic. EYES: Pupils equal and round. No scleral icterus. No injection or drainage. extraocular muscles intact ENT: No nasal bleeding or discharge. Mucous membranes pink and moist. Tongue is midline NECK: Trachea midline. No JVD. Supple CARDIOVASCULAR: Regular rate and rhythm. S1-S2 no S3 or S4 no heave or thrill or rub RESPIRATORY: No accessory muscle use. Clear to auscultation. Breath sounds equal bilaterally. GASTROINTESTINAL: Abdomen soft, non-tender, nondistended. Hepatic and splenic margins not palpable. MUSCULOSKELETAL: Extremities without clubbing, cyanosis, or edema. No obvious deformities. No clubbing or cyanosis or edema NEUROLOGICAL: Awake and alert. No obvious cranial nerve deficits. Motor grossly within normal limits. Five out of 5 muscle strength in the arms and legs. Normal speech. PSYCHIATRIC: Appropriate mood and affect; insight and judgment normal. Procedures Catheterization Medications and IVs Current Medications Lidocaine HCl (Xylocaine 2% Jelly) 1 applic ONCE ONCE TOPICAL Last administered on 11/10/17at 13:39; Start 11/10/17 at 12:30; Stop 11/10/17 at 12:31 ; Status DC Ceftriaxone Sodium 1000 mg/ Sodium Chloride 100 ml @ 200 mls/hr ONCE ONCE IV Last administered on 11/10/17at 14:08; Start 11/10/17 at 13:45; Stop 11/10/17 at 14:14; Status DC Sodium Chloride (NS Flush) 2 ml UNSCH PRN IV FLUSH FLUSH AFTER USING IV ACCESS ; Start 11/10/17 at 14:15; Stop 11/14/17 at 10:24; Status DC Sodium Chloride (NS Flush) 2 ml BID IV FLUSH Last administered on 11/14/17at 09: 14; Start 11/10/17 at 21:00; Stop 11/14/17 at 10:24; Status DC Naloxone HCl (Narcan Inj) 0.4 mg UNSCH PRN IV PUSH SEE LABEL COMMENTS; Start at 14:15 Hydralazine HCl (Apresoline Inj) 10 mg ONCE ONCE IV PUSH Last administered on 11/10/17at 15:26; Start 11/10/17 at 15:30; Stop 11/10/17 at 15:31; Status DC Tamsulosin HCl (Flomax) 0.4 mg DAILY PO Last administered on 12/07/17at 10:34; Start 11/11/17 at 09:00 Clonidine (Catapres) 0.1 mg Q6H PRN PO bp>170/80 if no pain Last administered on 11/11/17at 20:52; Start 11/10/17 at 18:15 Ciprofloxacin/ Dextrose 200 ml @ 200 mls/hr Q12H IV Last administered on at 10:16; Start 11/10/17 at 21:00; Stop 11/16/17 at 10:40; Status DC Morphine Sulfate (Morphine Inj) 1 mg Q4H PRN IM pain >5 Last administered on 11/13/17at 12:46; Start 11/10/17 at 20:00; Stop 11/13/17 at 13:23; Status DC Lidocaine HCl (Xylocaine 2% Jelly) 5 ml STK-MED ONCE .ROUTE ; Start 11/12/17 at 08:23; Stop 11/12/17 at 08:24; Status DC Acetaminophen 100 ml @ As Directed STK-MED ONCE IV ; Start 11/12/17 at 09:02; Stop 11/12/17 at 09:03; Status DC Midazolam HCl (Versed Inj) 2 mg STK-MED ONCE .ROUTE ; Start 11/12/17 at 09:02; Stop 11/12/17 at 09:03; Status DC Fentanyl Citrate (fentaNYL INJ) 200 mcg STK-MED ONCE .ROUTE ; Start 11/12/17 at 09:02; Stop 11/12/17 at 09:03; Status DC Famotidine (Pepcid Inj) 20 mg STK-MED ONCE .ROUTE ; Start 11/12/17 at 09:02; Stop 11/12/17 at 09:03; Status DC Miscellaneous Information ALL NURSING DEPARTME... UNSCH PRN .XX SEE LABEL COMMENTS; Start 11/12/17 at 11:00; Stop 11/13/17 at 10:59; Status DC Lidocaine HCl (Xylocaine-Mpf 1% Inj) 10 ml STK-MED ONCE OTHER ; Start 11/12/17 at 12:00; Stop 11/12/17 at 15:31; Status DC Rocuronium Clinton (Zemuron Inj) 50 mg STK-MED ONCE IV PUSH ; Start 11/12/17 at 12:00; Stop 11/12/17 at 15:31; Status DC Neostigmine Methylsulfate (Prostigmine Inj) 5 mg STK-MED ONCE IV PUSH ; Start at 12:00; Stop 11/12/17 at 15:31; Status DC Glycopyrrolate (Robinul Inj) 1 mg STK-MED ONCE IV PUSH ; Start 11/12/17 at 12:00 ; Stop 11/12/17 at 15:31; Status DC Phenylephrine HCl (Neosynephrine/ NS 1000 Mcg/10ml Syr) 1,000 mcg STK-MED ONCE IV ; Start 11/12/17 at 12:00; Stop 11/12/17 at 15:31; Status DC Ephedrine Sulfate (ePHEDrine/NS 25 MG/5 ML SYR) 25 mg STK-MED ONCE IV ; Start at 12:00; Stop 11/12/17 at 15:31; Status DC Dexamethasone Sodium Phosphate (Decadron Inj) 4 mg STK-MED ONCE IV ; Start at 12:00; Stop 11/12/17 at 15:31; Status DC Ondansetron HCl (Zofran Inj) 4 mg STK-MED ONCE IV PUSH ; Start 11/12/17 at 12:00 ; Stop 11/12/17 at 15:31; Status DC Propofol (Diprivan 200 Mg/20 ml Inj) 200 mg STK-MED ONCE IV ; Start 11/12/17 at 12:00; Stop 11/12/17 at 15:31; Status DC Morphine Sulfate (Morphine Inj) 2 mg Q4H PRN IV PUSH PAIN 1-10 Last administered on 11/13/17at 18:55; Start 11/13/17 at 13:30; Stop 11/16/17 at 10:23; Status DC Ondansetron HCl (Zofran Inj) 4 mg Q6HR PRN IV PUSH nausea Last administered on 11/13/17at 14:11; Start 11/13/17 at 13:45; Stop 11/13/17 at 19:46; Status DC Nitroglycerin (Nitro-Time) 2.5 mg ONCE ONCE PO ; Start 11/13/17 at 13:45; Stop 11/13/17 at 14:08; Status DC Nitroglycerin (Nitrostat Sl) 0.4 mg ONCE ONCE SL ; Start 11/13/17 at 14:15; Stop 11/13/17 at 15:09; Status DC Aminocaproic Acid 3000 mg/Sodium Chloride 3,012 ml @ 0 mls/hr UNSCH IRRIGATION Last administered on 11/20/17at 09:19; Start 11/13/17 at 14:15; Status Future Hold Heparin Sodium/ Sodium Chloride 1,000 ml @ As Directed STK-MED ONCE IV FLUSH ; Start 11/13/17 at 14:15; Stop 11/13/17 at 14:16; Status DC Heparin Sodium (Porcine) (Heparin Inj) 10,000 units STK-MED ONCE .ROUTE Last administered on 11/13/17at 14:51; Start 11/13/17 at 14:16; Stop 11/13/17 at 14:17; Status DC Heparin Sodium/ Sodium Chloride 1,000 ml @ As Directed STK-MED ONCE IV FLUSH ; Start 11/13/17 at 14:25; Stop 11/13/17 at 14:26; Status DC Aspirin (Aspirin Chew) 162 mg STK-MED ONCE .ROUTE Last administered on at 14:53; Start 11/13/17 at 14:52; Stop 11/13/17 at 14:53; Status DC Tirofiban/Sodium Chloride 100 ml @ As Directed STK-MED ONCE IV Last administered on 11/13/17at 15:08; Start 11/13/17 at 15:04; Stop 11/13/17 at 15:05; Status DC Clopidogrel Bisulfate (Plavix) 600 mg STK-MED ONCE .ROUTE Last administered on 11/13/17at 15:15; Start 11/13/17 at 15:12; Stop 11/13/17 at 15:13; Status DC Iohexol (OMNIPAQUE 350 INJ (Dental Equipment Installer [employer] Servicer)) 100 ml STK-MED ONCE OTHER ; Start at 14:14; Stop 11/13/17 at 15:57; Status DC Sodium Chloride (NS Flush) 2 ml UNSCH PRN IV FLUSH FLUSH AFTER USING IV ACCESS Last administered on 12/03/17at 09:02; Start 11/13/17 at 16:45 Sodium Chloride (NS Flush) 2 ml BID IV FLUSH Last administered on 12/07/17at 10: 38; Start 11/13/17 at 21:00 Aspirin (Aspirin Chew) 162 mg DAILY PO Last administered on 12/07/17at 10:33; Start 11/14/17 at 09:00 Clopidogrel Bisulfate (Plavix) 600 mg ONCE ONCE PO ; Start 11/13/17 at 16:45; Stop 11/13/17 at 16:56; Status DC Clopidogrel Bisulfate (Plavix) 75 mg DAILY PO Last administered on 12/05/17at 08 :08; Start 11/14/17 at 09:00; Stop 12/05/17 at 09:44; Status DC Tirofiban/Sodium Chloride 250 ml @ 12.24 mls/ hr [id number] IV ; Start 11/13/17 at 16:45; Stop 11/13/17 at 17:28; Status DC Miscellaneous Information 1 ONCE ONCE XX ; Start 11/13/17 at 16:45; Stop at 16:56; Status DC Bacitracin (Bacitracin Oint Packet) 0.9 gm ONCE ONCE TOP ; Start 11/13/17 at 16: 45; Stop 11/13/17 at 16:56; Status DC Carvedilol (Coreg) 3.125 mg BID PO Last administered on 12/07/17at 10:33; Start 11/13/17 at 21:00 Atorvastatin Calcium (Lipitor) 10 mg HS PO Last administered on 12/06/17at 22:35 ; Start 11/13/17 at 21:00 Promethazine HCl (Phenergan Supp) 12.5 mg NOW ONCE RECTAL ; Start 11/13/17 at 17 :30; Stop 11/13/17 at 17:31; Status DC Sodium Chloride 1,000 ml @ 42 mls/hr [id number] IV Last administered on 11/18/17at 11:29; Start 11/13/17 at 17:30; Stop 11/19/17 at 11:12; Status DC Calcium Chloride 1 gm/Sodium Chloride 110 ml @ 110 mls/hr NOW ONCE IV Last administered on 11/13/17at 20:13; Start 11/13/17 at 19:00; Stop 11/13/17 at 19:59; Status DC Sodium Bicarbonate (Sodium Bicarbonate 8.4% Inj) 100 meq STK-MED ONCE .ROUTE ; Start 11/13/17 at 19:00; Stop 11/13/17 at 19:01; Status DC Sodium Bicarbonate (Sodium Bicarbonate 8.4% Inj) 50 meq STAT ONCE IV PUSH ; Start 11/13/17 at 19:00; Stop 11/13/17 at 19:12; Status DC Sodium Bicarbonate (Sodium Bicarbonate 8.4% Inj) 100 meq STK-MED ONCE .ROUTE ; Start 11/13/17 at 19:00; Stop 11/13/17 at 19:01; Status DC Sodium Bicarbonate (Sodium Bicarbonate 8.4% Inj) 50 meq ONCE ONCE IV PUSH ; Start 11/13/17 at 19:00; Stop 11/13/17 at 19:12; Status DC Dexmedetomidine HCl 200 mcg/ Sodium Chloride 52 ml @ 3.53 mls/hr TITRATE PRN IV SEDATION; Start 11/13/17 at 19:15; Stop 11/18/17 at 16:44; Status DC Hydromorphone HCl (Dilaudid Pf Inj) 2 mg ONCE ONCE IV PUSH Last administered on 11/13/17at 19:00; Start 11/13/17 at 19:00; Stop 11/13/17 at 19:12; Status DC Nitroglycerin/ Dextrose 250 ml @ 1.5 mls/hr TITRATE PRN IV Chest pain relief Last administered on 11/13/17at 19:30; Start 11/13/17 at 19:30; Stop 11/23/17 at 09 :00; Status DC Ondansetron HCl (Zofran Inj) 4 mg Q6HR PRN IV PUSH nausea, vomting Last administered on 12/03/17at 11:29; Start 11/13/17 at 19:30 Norepinephrine Bitartrate 250 ml @ 7.5 mls/hr TITRATE PRN IV Maintain MAP > 65 mmHg Last administered on 11/13/17at 19:00; Start 11/13/17 at 20:00; Stop at 20:57; Status DC Sodium Bicarbonate (Sodium Bicarbonate 8.4% Inj) 100 meq NOW ONCE IV Last administered on 11/13/17at 19:00; Start 11/13/17 at 20:00; Stop 11/13/17 at 20:01; Status DC Potassium Chloride 100 ml @ 50 mls/hr Q2H PRN IV For Potassium 2.8 - 3.2 mEq/L ; Start 11/14/17 at 11:45; Stop 11/22/17 at 14:11; Status DC Potassium Chloride 100 ml @ 50 mls/hr Q2H PRN IV For Potassium 2.8 - 3.2 mEq/ L Last administered on 11/15/17at 06:45; Start 11/14/17 at 11:45; Stop 11/22/17 at 14:11; Status DC Potassium Chloride 100 ml @ 25 mls/hr UNSCH PRN IV For Potassium 3.3 - 3.5 mEq /L; Start 11/14/17 at 11:45; Stop 11/22/17 at 14:11; Status DC Potassium Chloride 100 ml @ 50 mls/hr Q2H PRN IV For Potassium 3.3 - 3.5 mEq/ L Last administered on 11/20/17at 04:14; Start 11/14/17 at 11:45; Stop 11/22/17 at 14:11; Status DC Magnesium Sulfate 4 gm/Sodium Chloride 100 ml @ 50 mls/hr UNSCH PRN IV For Magnesium 0.9 - 1.1 mg/dL; Start 11/14/17 at 11:45; Stop 11/22/17 at 14:11; Status DC Magnesium Oxide (Mag-Ox) 800 mg UNSCH PRN PO For Magnesium 1.2 - 1.6 mg/dL; Start 11/14/17 at 11:45; Stop 11/22/17 at 14:11; Status DC Magnesium Sulfate 2 gm/Sodium Chloride 100 ml @ 50 mls/hr UNSCH PRN IV For Magnesium 1.2 - 1.6 mg/dL; Start 11/14/17 at 11:45; Stop 11/22/17 at 14:11; Status DC Potassium Phosphate (K-Phos) 2,000 mg Q4H PRN PO For Phosphorus < 2.5 mg/dL Last administered on 11/20/17at 18:54; Start 11/14/17 at 11:45; Stop 11/22/17 at 14 :11; Status DC Sodium Phosphate 30 mmol/Sodium Chloride 250 ml @ 42 mls/hr UNSCH PRN IV For Phosphorus < 2.5 mg/dL; Start 11/14/17 at 11:45; Stop 11/22/17 at 14:11; Status DC Potassium Phosphate (K-Phos) 2,000 mg UNSCH PRN PO/TUBE SEE LABEL COMMENTS; Start 11/14/17 at 11:45; Stop 11/22/17 at 14:11; Status DC Potassium Phosphate 30 mmol/ Sodium Chloride 260 ml @ 42 mls/hr UNSCH PRN IV SEE LABEL COMMENTS; Start 11/14/17 at 11:45; Stop 11/22/17 at 14:11; Status DC Aminocaproic Acid 1000 mg/Sodium Chloride 1,004 ml @ 0 mls/hr UNSCH IRRIGATION ; Start 11/14/17 at 17:00; Status Future Hold Potassium Bicarb/ Potassium Chloride (K-Lyte Cl Eff) 75 meq NOW ONCE PO Last administered on 11/15/17at 09:31; Start 11/15/17 at 08:00; Stop 11/15/17 at 08:01; Status DC Calcium Gluconate 2 gm/Dextrose 120 ml @ 120 mls/hr ONCE ONCE IV Last administered on 11/15/17at 14:29; Start 11/15/17 at 14:00; Stop 11/15/17 at 14:59; Status DC Oxycodone/ Acetaminophen (Percocet 5-325 Mg) 1 tab ONCE ONCE PO ; Start at 10:30; Stop 11/16/17 at 11:37; Status DC Oxycodone/ Acetaminophen (Percocet 5-325 Mg) 1 tab Q4H PRN PO pain 3-10 Last administered on 11/17/17at 20:56; Start 11/16/17 at 10:30; Stop 11/17/17 at 21:05; Status DC Sodium Chloride 250 ml @ 15 mls/hr ONCE ONCE IV Last administered on at 05:45; Start 11/17/17 at 05:45; Stop 11/17/17 at 22:24; Status DC Furosemide (Lasix Inj) 20 mg ONCE ONCE IV PUSH ; Start 11/17/17 at 05:45; Stop 11/17/17 at 15:33; Status DC Pantoprazole Sodium (Protonix Inj) 40 mg DAILY IV PUSH Last administered on at 09:40; Start 11/17/17 at 09:00; Stop 11/28/17 at 14:41; Status DC Polyethylene Glycol (Miralax) 17 gm DAILY PO Last administered on 12/07/17at 10: 34; Start 11/17/17 at 11:00 Metoclopramide HCl (Reglan Inj) 5 mg Q8HR IV PUSH Last administered on at 20:58; Start 11/17/17 at 22:00; Stop 11/23/17 at 09:00; Status DC Furosemide (Lasix Inj) 20 mg UNSCH X1 IV PUSH Last administered on 11/17/17at 15 :37; Start 11/17/17 at 15:45; Stop 11/17/17 at 18:00; Status DC Amiodarone HCl 150 mg/Dextrose 103 ml @ 600 mls/hr Q11M ONCE IV Last administered on 11/17/17at 21:46; Start 11/17/17 at 18:38; Stop 11/17/17 at 19:44; Status DC Amiodarone HCl 450 mg/Sodium Chloride 259 ml @ 33.33 mls/ hr Q7H47M PRN IV Per Protocol; Start 11/17/17 at 18:48; Stop 11/17/17 at 21:09; Status DC Miscellaneous Information Patient in critical care unit? Ass... [id number] Last administered on 11/17/17at 20:45; Start 11/17/17 at 20:45 Chlorhexidine Gluconate (Chlorhexidine 2% Cloth) 3 pack DAILY@04 TOPICAL Last administered on 11/21/17at 04:00; Start 11/18/17 at 04:00; Stop 11/22/17 at 04:01 ; Status DC Chlorhexidine Gluconate (Chlorhexidine 2% Cloth) 3 pack UNSCH PRN TOPICAL HYGIENIC CARE; Start 11/17/17 at 20:45; Stop 11/22/17 at 20:32; Status DC Potassium Chloride 100 ml @ 100 mls/hr Q1H IV Last administered on 11/18/17at 02 :49; Start 11/17/17 at 21:00; Stop 11/18/17 at 02:59; Status DC Calcium Gluconate 1 gm/Sodium Chloride 110 ml @ 110 mls/hr ONCE ONCE IV Last administered on 11/17/17at 21:47; Start 11/17/17 at 21:00; Stop 11/17/17 at 21:59; Status DC Methylnaltrexone Clinton (Relistor Inj) 12 mg ONCE ONCE SQ Last administered on 11/18/17at 00:37; Start 11/17/17 at 21:00; Stop 11/17/17 at 21:01; Status DC Amiodarone HCl 450 mg/Sodium Chloride 259 ml @ 34.53 mls/ hr Q7H31M PRN IV Per Protocol; Start 11/17/17 at 21:05; Stop 11/17/17 at 21:08; Status DC Hydromorphone HCl (Dilaudid Pf Inj) 0.5 mg Q4H PRN IV PAIN SCALE 6 TO 10 Last administered on 12/04/17at 01:47; Start 11/17/17 at 21:15 Hydromorphone HCl (Dilaudid Pf Inj) 0.2 mg Q4H PRN IV PUSH Pain 1-5 Last administered on 12/03/17at 04:18; Start 11/17/17 at 21:15 Amiodarone HCl 450 mg/Sodium Chloride 250 ml @ 33.33 mls/ hr Q7H31M PRN IV Per Protocol Last administered on 11/18/17at 21:35; Start 11/17/17 at 21:15; Stop at 14:48; Status DC Acetaminophen 100 ml @ 400 mls/hr Q8HR PRN IV Fever; Start 11/17/17 at 21:15 Albuterol/ Ipratropium (Duoneb Neb) 1 ampule Q6HR NEB NEB Last administered on 11/21/17at 07:22; Start 11/17/17 at 22:00; Stop 11/21/17 at 09:31; Status DC Albuterol Sulfate (Albuterol Neb) 2.5 mg Q2HR NEB PRN NEB Dyspnea Last administered on 12/02/17at 08:10; Start 11/17/17 at 21:15 Ceftriaxone Sodium 1000 mg/ Sodium Chloride 100 ml @ 200 mls/hr Q24H IV Last administered on 11/20/17at 21:03; Start 11/17/17 at 22:00; Stop 11/21/17 at 09:49; Status DC Senna/Docusate Sodium (Lelia-Colace) 1 tab BID PO Last administered on at 09:00; Start 11/18/17 at 09:00 Lactulose (Lactulose Liq) 30 ml ONCE ONCE PO Last administered on 11/18/17at 06: 02; Start 11/18/17 at 05:45; Stop 11/18/17 at 05:46; Status DC Lactulose (Lactulose Liq) 30 ml DAILY PO Last administered on 12/07/17at 09:00; Start 11/18/17 at 09:00 Diatrizoate Meglum/ Diatrizoate Sod (Md Donovan Liq) 18 ml ONCE ONCE PO ; Start 11/18/17 at 09:00; Stop 11/18/17 at 09:01; Status DC Bisacodyl (Dulcolax Supp) 10 mg ONCE ONCE RECTAL Last administered on at 16:45; Start 11/18/17 at 16:45; Stop 11/18/17 at 17:04; Status DC Melatonin (Melatonin) 5 mg HS PRN PO INSOMNIA Last administered on 12/03/17at 00 :58; Start 11/18/17 at 20:00 Calcium Gluconate 1 gm/Dextrose 110 ml @ 110 mls/hr ONCE ONCE IV Last administered on 11/19/17at 11:23; Start 11/19/17 at 09:00; Stop 11/19/17 at 09:59; Status DC Furosemide (Lasix Inj) 40 mg ONCE ONCE IV PUSH Last administered on 11/19/17at 11:30; Start 11/19/17 at 11:25; Stop 11/19/17 at 11:26; Status DC Amiodarone HCl (Cordarone) 400 mg Q12HR PO Last administered on 11/25/17at 09:38 ; Start 11/19/17 at 17:00; Stop 11/25/17 at 17:00; Status DC Amiodarone HCl (Cordarone) 200 mg Q12H PO Last administered on 12/07/17at 06:39 ; Start 11/26/17 at 05:00 Potassium Chloride 100 ml @ 50 mls/hr ONCE ONCE IV Last administered on at 17:04; Start 11/19/17 at 15:30; Stop 11/19/17 at 18:38; Status DC Potassium Bicarb/ Potassium Chloride (K-Lyte Cl Eff) 50 meq ONCE ONCE PO Last administered on 11/19/17at 18:00; Start 11/19/17 at 18:00; Stop 11/19/17 at 18: 01; Status DC Furosemide (Lasix Inj) 40 mg ONCE ONCE IV PUSH Last administered on 11/19/17at 20:30; Start 11/19/17 at 21:00; Stop 11/19/17 at 21:01; Status DC Furosemide (Lasix Inj) 40 mg ONCE ONCE IV PUSH Last administered on 11/20/17at 15:12; Start 11/20/17 at 15:00; Stop 11/20/17 at 15:01; Status DC Furosemide (Lasix Inj) 40 mg DAILY IV PUSH Last administered on 11/21/17at 07:54 ; Start 11/21/17 at 09:00; Stop 11/21/17 at 09:29; Status DC Potassium Bicarb/ Potassium Chloride (K-Lyte Cl Eff) 50 meq ONCE ONCE PO Last administered on 11/20/17at 15:12; Start 11/20/17 at 15:00; Stop 11/20/17 at 15: 01; Status DC Cefepime HCl 2000 mg/Sodium Chloride 100 ml @ 200 mls/hr Q8H IV ; Start at 18:00; Stop 11/20/17 at 18:00; Status DC Pharmacy Profile Note 0 ml @ 0 mls/hr UNSCH OTHER ; Start 11/20/17 at 16:45; Stop 11/23/17 at 14:23; Status DC Vancomycin HCl 2000 mg/Sodium Chloride 520 ml @ 250 mls/hr ONCE ONCE IV Last administered on 11/20/17at 21:02; Start 11/20/17 at 18:30; Stop 11/20/17 at 20:34; Status DC Belladonna Alkaloids/Opium (B & O Supp) 60 mg ONCE ONCE RECTAL Last administered on 11/20/17at 23:00; Start 11/20/17 at 23:00; Stop 11/20/17 at 23:01; Status DC Calcium Chloride 1 gm/Dextrose 110 ml @ 110 mls/hr ONCE ONCE IV Last administered on 11/21/17at 05:05; Start 11/21/17 at 04:15; Stop 11/21/17 at 05:14 ; Status DC Albuterol/ Ipratropium (Duoneb Neb) 1 ampule Q6HR NEB NEB Last administered on 11/25/17at 03:47; Start 11/21/17 at 10:00; Stop 11/25/17 at 09:59; Status DC Insulin Aspart (NovoLOG SUPPLEMENTAL SCALE) 1 ACHS SLIDING SCALE SQ Last administered on 11/30/17at 17:00; Start 11/21/17 at 12:00 Dextrose (D50w (Vial) Inj) 50 ml UNSCH PRN IV PUSH HYPOGLYCEMIA-SEE COMMENTS; Start 11/21/17 at 09:30 Glucagon (Glucagon Inj) 1 mg UNSCH PRN OTHER HYPOGLYCEMIA-SEE COMMENTS; Start 11/21/17 at 09:30 Cefepime HCl 1000 mg/Sodium Chloride 100 ml @ 200 mls/hr Q24H IV Last administered on 11/23/17at 08:17; Start 11/21/17 at 10:00; Stop 11/24/17 at 09:44 ; Status DC Fluconazole (Diflucan) 100 mg DAILY PO Last administered on 11/24/17at 08:16; Start 11/21/17 at 10:15; Stop 11/24/17 at 09:49; Status DC Sodium Chloride 3,000 ml @ 0 mls/hr Q0M ONCE IV ; Start 11/21/17 at 10:45; Stop 11/21/17 at 10:45; Status DC Sodium Chloride 3,000 ml @ 0 mls/hr Q0M ONCE OTHER ; Start 11/21/17 at 11:00; Stop 11/21/17 at 11:01; Status DC Furosemide (Lasix Inj) 10 mg ONCE ONCE IV PUSH ; Start 11/21/17 at 10:45; Stop 11/21/17 at 10:51; Status DC Acetaminophen 100 ml @ 400 mls/hr Q6H PRN IV PAIN SCALE 6 TO 10; Start at 11:30; Stop 11/23/17 at 11:30; Status DC Calcium Gluconate (Calcium Gluconate) 500 mg ONCE ONCE PO ; Start 11/21/17 at 11:30; Stop 11/21/17 at 12:38; Status DC Calcium Gluconate 2 gm/Sodium Chloride 120 ml @ 120 mls/hr ONCE ONCE IV Last administered on 11/21/17at 13:41; Start 11/21/17 at 14:00; Stop 11/21/17 at 14:59 ; Status DC Norepinephrine Bitartrate 250 ml @ 7.5 mls/hr TITRATE PRN IV Maintain MAP > 65 mmHg Last administered on 11/21/17at 15:07; Start 11/21/17 at 14:00; Stop 08/31 at 09:00; Status DC Furosemide (Lasix Inj) 10 mg ONCE ONCE IV PUSH Last administered on 11/21/17at 22:55; Start 11/21/17 at 23:00; Stop 11/21/17 at 23:01; Status DC Calcium Gluconate 1 gm/Sodium Chloride 110 ml @ 110 mls/hr ONCE ONCE IV Last administered on 11/22/17at 08:37; Start 11/22/17 at 08:30; Stop 11/22/17 at 09:29 ; Status DC Oxybutynin Chloride (Ditropan) 5 mg Q12H PRN PO BLADDER SPASM Last administered on 11/22/17at 18:04; Start 11/22/17 at 18:00 Sodium Chloride 1,000 ml @ 50 mls/hr Q20H IV Last administered on 11/27/17at 20 :15; Start 11/23/17 at 09:00; Stop 11/28/17 at 16:53; Status DC Lidocaine HCl (Xylocaine 2% Jelly) 5 ml ONCE ONCE TOPICAL Last administered on 11/25/17at 07:15; Start 11/25/17 at 07:00; Stop 11/25/17 at 07:01; Status DC Amiodarone HCl (Cordarone Inj) 150 mg STK-MED ONCE IV ; Start 11/17/17 at 05:00; Stop 11/25/17 at 09:18; Status DC Lidocaine HCl (Xylocaine 2% Inj) 100 mg STK-MED ONCE IV PUSH ; Start 11/17/17 at 05:00; Stop 11/25/17 at 09:18; Status DC Magnesium Sulfate (Magnesium Sulfate Inj) 40 meq STK-MED ONCE IV ; Start at 05:00; Stop 11/25/17 at 09:18; Status DC Vasopressin (Pitressin Inj) 20 units STK-MED ONCE .ROUTE ; Start 11/25/17 at 16: 03; Stop 11/25/17 at 16:04; Status DC Sugammadex Sodium (Bridion Inj) 200 mg STK-MED ONCE IV PUSH ; Start 11/25/17 at 17:00; Stop 11/25/17 at 17:01; Status DC Phenylephrine HCl (Neosynephrine Inj) 10 mg STK-MED ONCE .ROUTE ; Start at 18:12; Stop 11/25/17 at 18:13; Status DC Finasteride (Proscar) 5 mg DAILY PO Last administered on 12/07/17at 10:33; Start 11/26/17 at 09:00 Cefazolin Sodium (Ancef Inj) 1,000 mg ONCE ONCE IV Last administered on at 21:00; Start 11/25/17 at 19:02; Stop 11/25/17 at 19:28; Status DC Fentanyl Citrate (fentaNYL INJ) 400 mcg STK-MED ONCE .ROUTE ; Start 11/25/17 at 19:16; Stop 11/25/17 at 19:17; Status DC Miscellaneous Information ALL NURSING DEPARTME... UNSCH PRN .XX SEE LABEL COMMENTS; Start 11/25/17 at 19:11; Stop 11/26/17 at 19:10; Status DC Acetaminophen 100 ml @ 400 mls/hr Q6H PRN IV BREAKTHROUGH PAIN Last administered on 11/26/17at 11:58; Start 11/26/17 at 11:30 Lactated Ringer's 2,000 ml @ As Directed STK-MED ONCE IV ; Start 11/25/17 at 12 :00; Stop 11/26/17 at 14:54; Status DC Lidocaine HCl (Xylocaine-Mpf 1% Inj) 5 ml STK-MED ONCE OTHER ; Start 11/25/17 at 12:00; Stop 11/26/17 at 14:54; Status DC Rocuronium [place] (Zemuron Inj) 100 mg STK-MED ONCE IV PUSH ; Start 11/25/17 at 12:00; Stop 11/26/17 at 14:54; Status DC Phenylephrine HCl (Neosynephrine/ NS 1000 Mcg/10ml Syr) 1,000 mcg STK-MED ONCE IV ; Start 11/25/17 at 12:00; Stop 11/26/17 at 14:54; Status DC Phenylephrine HCl (Neosynephrine Inj) 10 mg STK-MED ONCE IV ; Start 11/25/17 at 12:00; Stop 11/26/17 at 14:54; Status DC Ephedrine Sulfate (ePHEDrine/NS 25 MG/5 ML SYR) 25 mg STK-MED ONCE IV ; Start at 12:00; Stop 11/26/17 at 14:54; Status DC Ondansetron HCl (Zofran Inj) 4 mg STK-MED ONCE IV PUSH ; Start 11/25/17 at 12:00 ; Stop 11/26/17 at 14:54; Status DC Cefazolin Sodium (Ancef Inj) 1,000 mg STK-MED ONCE IV ; Start 11/25/17 at 12:00 ; Stop 11/26/17 at 14:54; Status DC Propofol (Diprivan 200 Mg/20 ml Inj) 200 mg STK-MED ONCE IV ; Start 11/25/17 at 12:00; Stop 11/26/17 at 14:54; Status DC Pantoprazole Sodium (Protonix) 40 mg DAILY PO Last administered on 12/07/17at 10 :33; Start 11/29/17 at 09:00 Sodium Chloride 1,000 ml @ 50 mls/hr Q20H IV Last administered on 11/28/17at 16 :59; Start 11/28/17 at 17:00; Status Future Hold Sodium Chloride 250 ml @ 15 mls/hr ONCE ONCE IV Last administered on at 00:03; Start 11/28/17 at 20:15; Stop 11/29/17 at 12:54; Status DC Furosemide (Lasix Inj) 40 mg STK-MED ONCE .ROUTE Last administered on at 22:30; Start 11/28/17 at 22:30; Stop 11/28/17 at 22:31; Status DC Lorazepam (Ativan Inj) 2 mg STK-MED ONCE .ROUTE Last administered on 11/28/17at 22:50; Start 11/28/17 at 22:50; Stop 11/28/17 at 22:51; Status DC Furosemide (Lasix Inj) 40 mg ONCE ONCE IV PUSH ; Start 11/28/17 at 23:00; Stop 11/28/17 at 23:01; Status DC Lorazepam (Ativan Inj) 0.5 mg ONCE ONCE IV PUSH ; Start 11/28/17 at 23:00; Stop 11/28/17 at 23:01; Status DC Furosemide (Lasix Inj) 20 mg DAILY IV PUSH Last administered on 11/30/17at 09:12 ; Start 11/30/17 at 09:00; Stop 11/30/17 at 10:19; Status DC Furosemide (Lasix Inj) 20 mg BID@09,18 IV PUSH Last administered on 12/07/17at 10:38; Start 11/30/17 at 18:00 Furosemide (Lasix Inj) 20 mg NOW ONCE IV PUSH Last administered on 12/01/17 08:03; Start 12/01/17 at 06:45; Stop 12/01/17 at 06:46; Status DC Sodium Chloride ([place]) 2 spray Q6H PRN NASAL NASAL CONGESTION; Start 12/01/17 at 18:15 Calcium Carbonate (Oscal) 1,000 mg BID PO Last administered on 12/07/17at 10:32 ; Start 12/02/17 at 21:00 Potassium Chloride (KCl) 40 meq ONCE ONCE PO Last administered on 12/02/17at 09 :55; Start 12/02/17 at 09:30; Stop 12/02/17 at 09:31; Status DC Potassium Chloride (KCl) 20 meq DAILY PO Last administered on 12/07/17 10:34; Start 12/03/17 at 09:00 Aminocaproic Acid 3000 mg/Sodium Chloride 3,012 ml @ 0 mls/hr CONTINUOUS IRRIGATION Last administered on 12/06/17at 06:35; Start 12/02/17 at 14:00; Status Future Hold Magnesium Oxide (Mag-Ox) 400 mg Q12HR PO Last administered on 12/07/17at 10:34; Start 12/05/17 at 10:00 Magnesium Sulfate/ Dextrose 100 ml @ 100 mls/hr Q1H IV Last administered on at 10:55; Start 12/05/17 at 10:00; Stop 12/05/17 at 11:59; Status DC Clopidogrel Bisulfate (Plavix) 75 mg EVERY OTHER DAY PO ; Start 12/07/17 at 09: 00; Stop 12/07/17 at 09:00; Status DC Clopidogrel Bisulfate (Plavix) 75 mg DAILY PO Last administered on 12/07/17at 10 :34; Start 12/06/17 at 09:00 Trimethoprim/ Sulfamethoxazole (Bactrim Ds 800-160 Mg) 1 tab Q12HR PO Last administered on 12/07/17at 13:16; Start 12/07/17 at 12:30 A/P Problem List: (1) Gross hematuria ICD Code: R31.0 - Gross hematuria Status: Acute (2) Obstructive uropathy ICD Code: N13.9 - Obstructive and reflux uropathy, unspecified Status: Acute (3) Cardiomyopathy ICD Code: I42.9 - Cardiomyopathy, unspecified (4) CAD (coronary artery disease) ICD Code: I25.10 - Atherosclerotic heart disease of [place] coronary artery without angina pectoris (5) Hypertension ICD Code: I10 - Essential (primary) hypertension Status: Acute (6) BPH (benign prostatic hyperplasia) ICD Code: N40.0 - Benign prostatic hyperplasia without lower urinary tract symptoms Status: Acute (7) KIARA (acute kidney injury) ICD Code: N17.9 - Acute kidney failure, unspecified Assessment and Plan 82-year-old maled admitted with hematuria. Hematuria Bladder Spasms Slowly improving Continue CBI has been discontinued Urology following PRN oxybutinin Continue Flomax Continue Catheter Has had his Ma catheter taken out on December 07 COPD Dyspnea Left Pleural Effusion Repeat CXR yesterday shows no evidence of progression of effusion, possible regression. Not an ideal candidate for thoracentesis, but this does not appear to be needed at this time Continue oxygen and nebulized treatments as needed Incentive Spirometry Mucolytic continued No need for thoracentesis STEMI s/p LAD stent Resolved V-tach Resolved Lactic Acidosis Aspirin QOD Plavix Amiodarone Coreg Atorvastatin No dov due to KIARA Cardiology following Acute Blood Loss Anemia H&H shows improvement today. 5 units PRBCs transfused during this visit thus far Follow CBC Chronic Systolic CHF Acute Exacerbation of CHF (resolved) Continue Lasix Transaminitis Resolved. Weakness Deconditioning PT once off bed rest (on bed rest for hematuria) DVT Prophylaxis SCDs Plavix HOPEFULLY DC IN NEXT 24-48 HOURS Discharge Planning Discharge planning Global improvement is seen, discharge anticipated once bladder irrigation is no longer necessary and patient passes void trial. Family intends to bring Mr. Rodriguez back to [place] with them, to live with them POSSIBLE DC TOMORROW Adam Reed DO Dec 07, 2017 14:58
--- NOTE | 2017-12-07 15:17 | PD.CARD.PN ---
Subjective Subjective Remarks alert in nad Objective Medications Current Medications Medications (Trade) Dose Ordered Sig/Micheal Route Start Time Stop Time Status Last Admin (Narcan Inj) 0.4 mg UNSCH PRN IV PUSH 11/10/17 14:15 (Flomax) 0.4 mg DAILY PO 11/11/17 09:00 12/07/17 10:34 (Catapres) 0.1 mg Q6H PRN PO 11/10/17 18:15 11/11/17 20:52 Aminocaproic Acid 3000 mg/Sodium Chloride 3,012 ml @ 0 mls/hr UNSCH IRRIGATION 11/13/17 14:15 Future Hold 11/20/17 09:19 (NS Flush) 2 ml UNSCH PRN IV FLUSH 11/13/17 16:45 12/03/17 09:02 (NS Flush) 2 ml BID IV FLUSH 11/13/17 21:00 12/07/17 10:38 (Aspirin Chew) 162 mg DAILY PO 11/14/17 09:00 12/07/17 10:33 (Coreg) 3.125 mg BID PO 11/13/17 21:00 12/07/17 10:33 (Lipitor) 10 mg HS PO 11/13/17 21:00 12/06/17 22:35 (Zofran Inj) 4 mg Q6HR PRN IV PUSH 11/13/17 19:30 12/03/17 11:29 Aminocaproic Acid 1000 mg/Sodium Chloride 1,004 ml @ 0 mls/hr UNSCH IRRIGATION 11/14/17 17:00 Future Hold (Miralax) 17 gm DAILY PO 11/17/17 11:00 12/07/17 10:34 Miscellaneous Information Patient in critical care unit? Ass... Q361D .XX 11/17/17 20:45 11/17/17 20:45 (Dilaudid Pf Inj) 0.5 mg Q4H PRN IV 11/17/17 21:15 12/04/17 01:47 (Dilaudid Pf Inj) 0.2 mg Q4H PRN IV PUSH 11/17/17 21:15 12/03/17 04:18 Acetaminophen 100 ml @ 400 mls/hr Q8HR PRN IV 11/17/17 21:15 (Albuterol Neb) 2.5 mg Q2HR NEB PRN NEB 11/17/17 21:15 12/02/17 08:10 (Lelia-Colace) 1 tab BID PO 11/18/17 09:00 12/07/17 09:00 (Lactulose Liq) 30 ml DAILY PO 11/18/17 09:00 12/07/17 09:00 (Melatonin) 5 mg HS PRN PO 11/18/17 20:00 12/03/17 00:58 (Cordarone) 200 mg Q12H PO 11/26/17 05:00 12/07/17 06:39 (NovoLOG SUPPLEMENTAL SCALE) 1 ACHS SLIDING SCALE SQ 11/21/17 12:00 11/30/17 17:00 (D50w (Vial) Inj) 50 ml UNSCH PRN IV PUSH 11/21/17 09:30 (Glucagon Inj) 1 mg UNSCH PRN OTHER 11/21/17 09:30 (Ditropan) 5 mg Q12H PRN PO 11/22/17 18:00 11/22/17 18:04 (Proscar) 5 mg DAILY PO 11/26/17 09:00 12/07/17 10:33 Acetaminophen 100 ml @ 400 mls/hr Q6H PRN IV 11/26/17 11:30 11/26/17 11:58 (Protonix) 40 mg DAILY PO 11/29/17 09:00 12/07/17 10:33 Sodium Chloride 1,000 ml @ 50 mls/hr Q20H IV 11/28/17 17:00 Future Hold 11/28/17 16:59 (Lasix Inj) 20 mg BID@,18 IV PUSH 11/30/17 18:00 12/07/17 10:38 ([place]ans[place]) 2 spray Q6H PRN NASAL 12/01/17 18:15 (Oscal) 1,000 mg BID PO 12/02/17 21:00 12/07/17 10:32 (KCl) 20 meq DAILY PO 12/03/17 09:00 12/07/17 10:34 Aminocaproic Acid 3000 mg/Sodium Chloride 3,012 ml @ 0 mls/hr CONTINUOUS IRRIGATION 12/02/17 14:00 Future Hold 12/06/17 06:35 (Mag-Ox) 400 mg Q12HR PO 12/05/17 10:00 12/07/17 10:34 (Plavix) 75 mg DAILY PO 12/06/17 09:00 12/07/17 10:34 (Bactrim Ds 800-160 Mg) 1 tab Q12HR PO 12/07/17 12:30 12/07/17 13:16 Vital Signs / I&O Vital Signs Date Time Temp Pulse Resp B/P (MAP) Pulse Ox O2 Delivery O2 Flow Rate FiO2 12/07/17 14:00 67 22 12/07/17 14:00 67 12/07/17 13:00 74 30 100 12/07/17 12:00 68 12/07/17 12:00 97.5 68 31 117/63 (81) 100 12/07/17 11:00 65 24 126/60 (82) 100 12/07/17 10:01 68 31 119/58 (78) 88 12/07/17 10:00 66 12/07/17 10:00 66 25 98 12/07/17 09:01 67 16 133/61 (85) 99 12/07/17 09:00 70 13 98 12/07/17 08:13 99 Nasal Cannula 1.00 12/07/17 08:00 63 12/07/17 08:00 97.6 63 17 101/57 (72) 99 12/07/17 07:00 62 17 115/59 (77) 100 12/07/17 06:00 65 12/07/17 06:00 65 13 113/55 (74) 97 12/07/17 05:00 64 10 113/64 (80) 97 12/07/17 04:00 97.4 66 19 90/52 (65) 95 12/07/17 04:00 66 12/07/17 02:00 67 12/07/17 00:00 98.0 71 20 98/55 (69) 99 12/07/17 00:00 71 12/06/17 22:00 75 12/06/17 20:00 68 12/06/17 20:00 97.8 68 21 120/58 (78) 99 12/06/17 18:00 71 12/06/17 16:00 97.6 68 20 98/54 (69) 97 12/06/17 16:00 68 I/O 12/06/17 12/06/17 12/06/17 12/07/17 12/07/17/26/18 07:00 15:00 23:00 07:00 15:00 23:00 Intake Total 720 ml 480 ml 480 ml Output Total 1900 ml 900 ml 750 ml Balance -1180 ml -420 ml -270 ml Intake Oral 720 ml 480 ml 480 ml Output Urine Total 1900 ml 900 ml 750 ml Physical Exam GENERAL: SKIN: Warm and dry. HEAD: Normocephalic. EYES: No scleral icterus. No injection or drainage. NECK: Supple, trachea midline. No JVD or lymphadenopathy. CARDIOVASCULAR: Regular rate and rhythm without murmurs, gallops, or rubs. RESPIRATORY: Breath sounds equal bilaterally. No accessory muscle use. GASTROINTESTINAL: Abdomen soft, non-tender, nondistended. MUSCULOSKELETAL: No cyanosis, or edema. BACK: Nontender without obvious deformity. No CVA tenderness. Laboratory Laboratory Tests Test 12/07/17 04:15 White Blood Count 8.2 TH/MM3 Red Blood Count 3.16 MIL/MM3 Hemoglobin 9.6 GM/DL Hematocrit 28.5 % Mean Corpuscular Volume 90.1 FL Mean Corpuscular Hemoglobin 30.3 PG Mean Corpuscular Hemoglobin Concent 33.7 % Red Cell Distribution Width 15.0 % Platelet Count 201 TH/MM3 Mean Platelet Volume 9.2 FL Neutrophils (%) (Auto) 74.8 % Lymphocytes (%) (Auto) 16.1 % Monocytes (%) (Auto) 7.4 % Eosinophils (%) (Auto) 1.0 % Basophils (%) (Auto) 0.7 % Neutrophils # (Auto) 6.1 TH/MM3 Lymphocytes # (Auto) 1.3 TH/MM3 Monocytes # (Auto) 0.6 TH/MM3 Eosinophils # (Auto) 0.1 TH/MM3 Basophils # (Auto) 0.1 TH/MM3 CBC Comment DIFF FINAL Differential Comment Blood Urea Nitrogen 25 MG/DL Creatinine 2.39 MG/DL Random Glucose 113 MG/DL Total Protein 5.8 GM/DL Albumin 2.0 GM/DL Calcium Level 7.5 MG/DL Alkaline Phosphatase 86 U/L Aspartate Amino Transf (AST/SGOT) 15 U/L Alanine Aminotransferase (ALT/SGPT) 12 U/L Total Bilirubin 0.3 MG/DL Sodium Level 142 MEQ/L Potassium Level 4.0 MEQ/L Chloride Level 107 MEQ/L Carbon Dioxide Level 26.9 MEQ/L Anion Gap 8 MEQ/L Estimat Glomerular Filtration Rate 26 ML/MIN B-Type Natriuretic Peptide 740 PG/ML Assessment and Plan Problem List: (1) Cardiomyopathy ICD Codes: I42.9 - Cardiomyopathy, unspecified (2) CAD (coronary artery disease) ICD Codes: I25.10 - Atherosclerotic heart disease of [place] coronary artery without angina pectoris (3) Hematuria ICD Codes: R31.9 - Hematuria, unspecified Status: Acute (4) Gross hematuria ICD Codes: R31.0 - Gross hematuria Status: Acute Assessment and Plan 1.) CAD - pod# 24 primary pci, assymptomatic, continue aspirin, plavix, lipitor , coreg, dov held due ubstructive uopathy, arf and hypotension, transfuse prn to keep hgb> 9.0, d/w nurse, hematuria improving 2.) Wide complex tachycardia - discussed in detail with family, patient, Dr Yap , Dr Del Rio, DR Hernandez, nurse at bedside; on po amio, f/u Dr Jackson; patient assymptomatic during event, trop continues to trend down, continue amiodarone, supplement magnesium iv today and po 3.) Hypoxia - supsect chf excacerbated by volume overload related to arf, u/o and bnp improving, negative fluid balance, f/u bnp in am, d/w daughter and patient in detail at the bedside 4.) Cardiomyopathy - continue coreg, dov held due to arf, u/o good, in negative fluid balance over past 48 hrs, weight decreased from 75 kg to 68 kg which is his admission baseline weight, f/u bnp/bmp Nathanael Kelley MD Dec 07, 2017 15:17
[2017-12-07] MEDS: ATORVASTATIN 10 MG TAB PO SCH (19:40)
[2017-12-08] VITALS (7 sets, daily range): BP systolic 87–147; BP diastolic 51–67; PULSE 59–70; RESP 11–20; TEMP 98.1–98.9; O2SAT 97–100
[2017-12-08 03:58] LABS: AUTOMATED NEUTROPHIL # 6.7 TH/MM3 (1.8-7.7); BASOPHIL # 0.1 TH/MM3 (0-0.2); BASOPHIL % 0.9 % (0.0-2.0); EOSINOPHIL # 0.2 TH/MM3 (0-0.4); EOSINOPHIL % 1.7 % (0.0-4.0); HEMATOCRIT 29.5 % (39.0-51.0); HEMOGLOBIN 9.8 GM/DL (13.0-17.0); LYMPH % 18.1 % (9.0-44.0); LYMPHOCYTE # 1.7 TH/MM3 (1.0-4.8); MEAN CELL VOLUME 89.2 FL (80.0-100.0); MEAN CORPUSCULAR HEMOGLOBIN 29.7 PG (27.0-34.0); MEAN CORPUSCULAR HGB CONC 33.3 % (32.0-36.0); MEAN PLATELET VOLUME 9.3 FL (7.0-11.0); MONO % 6.3 % (0.0-8.0); MONOCYTE # 0.6 TH/MM3 (0-0.9); PLATELET COUNT 221 TH/MM3 (150-450); RED BLOOD COUNT 3.31 MIL/MM3 (4.50-5.90); RED CELL DISTRIBUTION WIDTH 15.2 % (11.6-17.2); WHITE BLOOD COUNT 9.2 TH/MM3 (4.0-11.0)
[2017-12-08 04:25] LABS: ALBUMIN 2.2 GM/DL (3.4-5.0); AST (GOT) 16 U/L (15-37); BLOOD UREA NITROGEN 27 MG/DL (7-18); CALCIUM 7.7 MG/DL (8.5-10.1); CHLORIDE 103 MEQ/L (98-107); GLUCOSE,RANDOM 83 MG/DL (74-106); SODIUM (NA) 141 MEQ/L (136-145)
[2017-12-08 04:34] LABS: ALKALINE PHOSPHATASE 89 U/L (45-117); ALT (GPT) 12 U/L (12-78); BICARBONATE 27.9 MEQ/L (21.0-32.0); CREATININE 2.48 MG/DL (0.60-1.30); FREE T4 1.46 NG/DL (0.76-1.46); GLOMERULAR FILTRATION RATE 25 ML/MIN (>89); PHOSPHORUS 2.7 MG/DL (2.5-4.9); TOTAL BILIRUBIN ADULT 0.3 MG/DL (0.2-1.0); TOTAL PROTEIN 6.3 GM/DL (6.4-8.2)
[2017-12-08] MEDS: AMIODARONE 200 MG TAB PO SCH (05:42)
[2017-12-08] MEDS: INSULIN ASPART SUPPLEMENTAL SCALE SQ SCH ×2 (08:00→11:49)
[2017-12-08] MEDS ORDERED: PERI PO (08:33)
[2017-12-08] MEDS ORDERED: FURO1TAB62 PO (08:33)
[2017-12-08] MEDS ORDERED: AMIO200T PO (08:33)
[2017-12-08] MEDS ORDERED: PLAV75TA29 PO (08:33)
[2017-12-08] MEDS ORDERED: PANT40TA3 PO (08:33)
[2017-12-08] MEDS ORDERED: MAGN400T2 PO (08:33)
[2017-12-08] MEDS ORDERED: LIPI10TA PO (08:33)
[2017-12-08] MEDS ORDERED: MELA5 PO (08:33)
[2017-12-08] MEDS ORDERED: FINA5TAB2 PO (08:33)
[2017-12-08] MEDS ORDERED: CARV3.125 PO (08:33)
[2017-12-08] MEDS ORDERED: OXYB5TAB8 PO (08:33)
[2017-12-08] MEDS ORDERED: ASPI81 PO (08:33)
[2017-12-08] MEDS: POLYETHYLENE GLYCOL 17 GM PKG PO SCH (08:55)
[2017-12-08] MEDS: POTASSIUM CHLORIDE 20 MEQ CONTROLLED RELEASE TAB PO SCH (08:56)
[2017-12-08] MEDS: DOCUSATE SODIUM 50 MG/SENNA 8.6 MG TAB PO SCH (08:56)
[2017-12-08] MEDS: CLOPIDOGREL 75 MG TAB PO SCH (08:56)
[2017-12-08] MEDS: LACTULOSE SYRUP 20 GM/30 ML CUP PO SCH (08:56)
[2017-12-08] MEDS: FINASTERIDE 5 MG TAB PO SCH (08:56)
[2017-12-08] MEDS: ASPIRIN 81 MG CHEW TAB PO SCH (08:56)
[2017-12-08] MEDS: MAGNESIUM OXIDE 400 MG TAB PO SCH (08:56)
[2017-12-08] MEDS: CARVEDILOL 3.125 MG TAB PO SCH (08:56)
[2017-12-08] MEDS: PANTOPRAZOLE SOD 40 MG DELAYED RELEASE TAB PO SCH (08:56)
[2017-12-08] MEDS: CALCIUM CARBONATE 1.25 GM (CA 500 MG) TAB PO SCH (08:56)
[2017-12-08] MEDS: FUROSEMIDE 20 MG/2 ML VIAL IV PUSH SCH (08:57)
[2017-12-08] MEDS: SODIUM CHLORIDE 0.9% FLUSH 10 ML FLUSH IV FLUSH SCH (08:58)
--- NOTE | 2017-12-08 08:59 | HHI.DS ---
Discharge Summary Admission Date Nov 13, 2017 at 16:48 Discharge Date: Dec 08, 2017 Admitting Diagnosis Hematuria. Obstructive uropathy. (1) Gross hematuria ICD Code: R31.0 - Gross hematuria Status: Acute (2) Obstructive uropathy ICD Code: N13.9 - Obstructive and reflux uropathy, unspecified Status: Acute (3) Cardiomyopathy ICD Code: I42.9 - Cardiomyopathy, unspecified (4) CAD (coronary artery disease) ICD Code: I25.10 - Atherosclerotic heart disease of [place] coronary artery without angina pectoris (5) Hypertension ICD Code: I10 - Essential (primary) hypertension Status: Acute (6) BPH (benign prostatic hyperplasia) ICD Code: N40.0 - Benign prostatic hyperplasia without lower urinary tract symptoms Status: Acute (7) KIARA (acute kidney injury) ICD Code: N17.9 - Acute kidney failure, unspecified Procedures Catheterization Brief History - From Admission History from patient, and ER physician communication, interview of medical records. Patient reported that he was seen blood in his urine since discharge from hospital about 3 days ago. He's reports of associated burning. No fever. Denies any shortness of breath or dizziness or syncopal episodes. Denies any chest pain. Denies any abdominal pain. Denies diarrhea. Patient reports of some nausea and for some vomiting. He stated he hasn't eaten for past 3 days because of this pain and hematuria. Patient is an elderly lady who states he lives by himself. He has a sister who lives about 40 minutes away. His children are mostly in [place] and he would go there once in a while. CBC/BMP: 12/08/17 0255 12/08/17 0255 Significant Findings Laboratory Tests Test 12/05/17 19:34 12/06/17 04:30 12/07/17 04:15 12/08/17 02:55 Hemoglobin 10.4 GM/DL (13.0-17.0) 10.0 GM/DL (13.0-17.0) 9.6 GM/DL (13.0-17.0) 9.8 GM/DL (13.0-17.0) Hematocrit 29.9 % (39.0-51.0) 30.1 % (39.0-51.0) 28.5 % (39.0-51.0) 29.5 % (39.0-51.0) Blood Urea Nitrogen 24 MG/DL (7-18) 26 MG/DL (7-18) 25 MG/DL (7-18) 27 MG/DL (7-18) Creatinine 2.45 MG/DL (0.60-1.30) 2.33 MG/DL (0.60-1.30) 2.39 MG/DL (0.60-1.30) 2.48 MG/DL (0.60-1.30) Random Glucose 126 MG/DL (74-106) 108 MG/DL (74-106) 113 MG/DL (74-106) Calcium Level 7.5 MG/DL (8.5-10.1) 7.5 MG/DL (8.5-10.1) 7.5 MG/DL (8.5-10.1) 7.7 MG/DL (8.5-10.1) Estimat Glomerular Filtration Rate 25 ML/MIN (>89) 27 ML/MIN (>89) 26 ML/MIN (>89) 25 ML/MIN (>89) Red Blood Count 3.32 MIL/MM3 (4.50-5.90) 3.16 MIL/MM3 (4.50-5.90) 3.31 MIL/MM3 (4.50-5.90) Neutrophils (%) (Auto) 77.0 % (16.0-70.0) 74.8 % (16.0-70.0) 73.0 % (16.0-70.0) Total Protein 6.2 GM/DL (6.4-8.2) 5.8 GM/DL (6.4-8.2) 6.3 GM/DL (6.4-8.2) Albumin 2.0 GM/DL (3.4-5.0) 2.0 GM/DL (3.4-5.0) 2.2 GM/DL (3.4-5.0) B-Type Natriuretic Peptide 932 PG/ML (0-100) 740 PG/ML (0-100) 718 PG/ML (0-100) Imaging Last Impressions Chest Ultrasound 12/07/17 0000 Signed Impressions: Service Date/Time: Thursday, December 07, 2017 09:04 - CONCLUSION: 1. Minimal left effusion. Ravinder López MD Chest X-Ray 12/05/17 0000 Signed Impressions: Service Date/Time: Tuesday, December 05, 2017 11:13 - CONCLUSION: Improved aeration of lungs with some residual infiltrates in the upper lobes and left lung base. Celestine Flanagan MD Abdomen X-Ray 11/25/17 0000 Signed Impressions: Service Date/Time: Saturday, November 25, 2017 11:39 - CONCLUSION: 1. No calcified stones seen. 2. Nonspecific abdominal bowel gas pattern with diffuse gas containing minimally distended loops of small bowel. Jesus Martinez MD Renal Ultrasound 11/22/17 0000 Signed Impressions: Service Date/Time: Wednesday, November 22, 2017 10:23 - CONCLUSION: 1. Intraluminal mass versus debris within the urinary bladder completely encasing the Ma catheter. 2. Simple right renal cyst. 3. No evidence of hydronephrosis. Isaias Hanna MD Chest CT 11/20/17 0000 Signed Impressions: Service Date/Time: Monday, November 20, 2017 22:03 - CONCLUSION: Diffuse confluent airspace opacities throughout both lungs obscuring portions of the right middle lobe. There is associated large bilateral pleural effusions. Jesus Martinez MD Abdomen/Pelvis CT 11/19/17 0819 Signed Impressions: Service Date/Time: November 09:06 - CONCLUSION: 1. The bowel gas pattern remains within normal limits. No mechanical obstruction. 2. There is a right inguinal hernia containing loops of small and large bowel without obstruction. 3. There is a Ma catheter in urinary bladder. However, the balloon on the Ma catheter appears to be inflated within the prostatic urethra. This may need to be adjusted. 4. There continues to be mixed density within the urinary bladder as well as air. This is not significantly changed compared to the prior exam. 5. Diffuse enlargement of the prostate gland. 6. New bilateral pleural effusions as well as bibasilar infiltrates. Amador Leiva MD PE at Discharge GENERAL: Awake alert and oriented 3 intact talkative and cooperative SKIN: Warm and dry. HEAD: Atraumatic. Normocephalic. EYES: Pupils equal and round. No scleral icterus. No injection or drainage. extraocular muscles intact ENT: No nasal bleeding or discharge. Mucous membranes pink and moist. Tongue is midline NECK: Trachea midline. No JVD. Supple CARDIOVASCULAR: Regular rate and rhythm. S1-S2 no S3 or S4 no heave or thrill or rub RESPIRATORY: No accessory muscle use. Clear to auscultation. Breath sounds equal bilaterally. GASTROINTESTINAL: Abdomen soft, non-tender, nondistended. Hepatic and splenic margins not palpable. MUSCULOSKELETAL: Extremities without clubbing, cyanosis, or edema. No obvious deformities. No clubbing or cyanosis or edema NEUROLOGICAL: Awake and alert. No obvious cranial nerve deficits. Motor grossly within normal limits. Five out of 5 muscle strength in the arms and legs. Normal speech. PSYCHIATRIC: Appropriate mood and affect; insight and judgment normal. Pt update on day of discharge The patient is in bed he appears to not acute distress. Very pleasant and has no complaints at this time. During his getting clear. No pain. No fever or chills. No nausea or vomiting. Saturating well on room air. Wants to go home. Family at bedside very supportive. Hospital Course 82-year-old maled admitted with hematuria. Hematuria Bladder Spasms Slowly improving CBI has been discontinued Urology was consulted and did follow with the patient. Cleared by Dr. Lee for discharge, patient to have 3 more days of Bactrim after discharge per urology. PRN oxybutinin Continue Flomax Continue Catheter Has had his Ma catheter taken out on December 07. COPD Dyspnea Left Pleural Effusion Repeat CXR yesterday shows no evidence of progression of effusion, possible regression. Not an ideal candidate for thoracentesis, but this does not appear to be needed at this time Continue oxygen and nebulized treatments as needed Incentive Spirometry Mucolytic continued No need for thoracentesis STEMI s/p LAD stent Resolved V-tach Resolved Lactic Acidosis Aspirin QOD Plavix Amiodarone Coreg Atorvastatin No dov due to KIARA Cardiology following Acute Blood Loss Anemia H&H shows improvement today. 5 units PRBCs transfused during this visit thus far Follow CBC Chronic Systolic CHF Acute Exacerbation of CHF (resolved) Continue Lasix Transaminitis Resolved. Weakness Deconditioning PT once off bed rest (on bed rest for hematuria) DVT Prophylaxis SCDs Plavix HOPEFULLY DC IN NEXT 24-48 HOURS Discharge Planning Discharge planning Global improvement is seen, discharge anticipated once bladder irrigation is no longer necessary and patient passes void trial. Family intends to bring Mr. Rodriguez back to [place] with them, to live with them. Patient has a very supportive family. Patient is cleared by consultants. Improved significantly. Patient's discharge home in stable condition. Follow-up with PCP and consultants as outpatient. Pt Condition on Discharge: Stable Discharge Disposition: Discharge Home Discharge Time: > 30 minutes Discharge Instructions DIET: Follow Instructions for: Heart Healthy Diet Speech Therapy-Diet Recommends: Mechanical Soft Activities you can perform: Regular-No Restrictions Follow up Referrals: Cardiology - 1 Week PCP Follow-up Urology New Medications: Furosemide (Lasix) 20 Mg Tab 20 MG PO DAILY for Blood Pressure Management, #30 TAB 0 Refills Hydrocodone-Acetaminophen ([place]) 5 Mg-325 Mg Tab 1 TAB PO Q6H PRN for PAIN, #20 TAB 0 Refills Sulfamethoxazole-Trimethoprim (Bactrim DS) 800-160 Mg Tab 1 TAB PO BID for Infection, #6 TAB 0 Refills Amiodarone (Amiodarone) 200 Mg Tab 200 MG PO Q12H for Arrhythmia , #60 TAB Aspirin (Tgt Aspirin) 81 Mg Chw 162 MG PO DAILY for Blood Clot Prevention, #30 EA Atorvastatin (Lipitor) 10 Mg Tab 10 MG PO HS for Cholesterol Management, #30 TAB Carvedilol (Coreg) 3.125 Mg Tab 3.125 MG PO BID for Blood Pressure Management, #60 TAB Clopidogrel (Plavix) 75 Mg Tab 75 MG PO DAILY for Blood Clot Prevention, #30 TAB Finasteride (Finasteride) 5 Mg Tab 5 MG PO DAILY for bph, #60 TAB Do not crush. Magnesium Oxide (Magnesium Oxide) 400 Mg Tab 400 MG PO Q12HR for Nutritional Supplement, #30 TAB Melatonin (Melatonin) 5 Mg Tab 5 MG PO HS PRN for INSOMNIA, #30 TAB Oxybutynin (Ditropan) 5 Mg Tab 5 MG PO Q12H PRN for BLADDER SPASM, #60 TAB Pantoprazole (Pantoprazole) 40 Mg Tab 40 MG PO DAILY for dyspepsia, #30 TAB Sennosides-Docusate Sodium (Gnp Senna Plus 8.6-50 mg) 8.6 Mg-50 Mg Tab 1 TAB PO BID for Constipation, #60 TAB Continued Medications: Tamsulosin (Flomax) 0.4 Mg Cap 0.4 MG PO DAILY, #30 CAP Paola Cardona MD Dec 08, 2017 08:59
[2017-12-08] MEDS: TAMSULOSIN HCL 0.4 MG CAP PO SCH (09:00)
[2017-12-08] MEDS: SULFAMETHOXAZOLE-TRIMETHOPRIM DS 800-160 MG TAB PO SCH (09:00)
[2017-12-08] MEDS ORDERED: NORC5TAB PO (09:00)
[2017-12-08] MEDS ORDERED: BACT800T5 PO (10:10)
--- NOTE | 2017-12-08 10:11 | HHI.NPPN ---
Subjective Renal Problems: Hematuria Renal Failure: Acute History of Present Illness This is an 82-year-old male with a past medical history of hypertension, benign prostatic hypertrophy, history of TURP in 2006, possible history of mild chronic kidney disease with creatinine on presentation of 1.3 and remained in the range of 1.2 to 1.3 most of the time. He presented to the hospital and was admitted on 11/10 because of hematuria. Nephrology was called to see the patient because of elevated BUN and creatinine. The patient has been followed by Urology and the impression was the patient has possible prostatic bleeding and continue the Hernández catheter and irrigation (this was on admission), and continue the Flomax. It was recently found on the ultrasound of the kidneys, that he has intraluminal mass versus ___ _ in the urinary bladder. The creatinine has been gradually going up, and now it is 4.5. The patient has bloody urine and is to continue the bladder irrigation. He has nausea or vomiting, no history of diarrhea. The patient has all the cultures negative, and currently he is getting Diflucan and cefepime. Infectious Disease is following. Additional Remarks Patient is alert sitting up in bed with family at bedside. Urine with intermittent hematuria. Renal function stable. (Karen Ch) Review of Systems Respiratory Respiratory Remarks Denies SOB (Karen Ch) Cardiovascular Cardiac Remarks denies any CP (Karen Ch) Gastrointestinal GI Remarks denies abdominal pain (Karen Ch) Objective Data Data Vital Signs Date Time Temp Pulse Resp B/P (MAP) Pulse Ox O2 Delivery O2 Flow Rate FiO2 12/08/17 08:00 98.9 66 11 102/54 (70) 97 12/08/17 08:00 66 12/08/17 06:00 65 12/08/17 04:00 66 12/08/17 04:00 98.2 68 11 147/67 (93) 98 12/08/17 02:00 65 12/08/17 01:05 100 12/08/17 00:00 59 12/08/17 00:00 98.1 60 20 87/51 (63) 100 12/07/17 22:00 68 12/07/17 20:00 97.7 69 11 99/55 (70) 98 12/07/17 20:00 69 12/07/17 18:00 63 12/07/17 17:00 64 17 94/54 (67) 94 12/07/17 16:00 65 12/07/17 16:00 97.9 65 16 103/55 (71) 12/07/17 15:01 67 25 117/56 (76) 12/07/17 14:00 67 22 12/07/17 14:00 67 12/07/17 13:00 74 30 100 12/07/17 12:00 68 12/07/17 12:00 97.5 68 31 117/63 (81) 100 12/07/17 11:00 65 24 126/60 (82) 100 (Karen Ch) -: 12/08/17 0255 12/08/17 0255 Physical Exam General Appearance: No Acute Distress, Comfortable (Karen Ch) Throat Throat Exam: Oral Mucosa [place] & Moist (Karen Ch) Pulmonary Resp Exam: Breath Sounds Equal, No Distress, Decreased Bases (Karen Ch) Cardiology CV Exam: Regular (Karen Ch) Gastrointestinal/Abdomen GI Exam: Bowel Sounds Present (Karen Ch) Genitourinary Exam: Flank Non-Tender (Karen Ch) Integumentary Skin Exam: Warm, Dry (Karen Ch) Extremeties Extremities Exam: No Edema (Karen Ch) Neurologic Neuro Exam: Alert, Awake (Karen Ch) Psychiatric Psych Exam: Appropriate Responses (Karen Ch) Assessment/Plan Discussed Condition With: Patient Assessment Summary: KIARA/Acute Renal Failure Electrolyte Assessment: Hypocalcemia Problem List: (1) KIARA (acute kidney injury) ICD Codes: N17.9 - Acute kidney failure, unspecified Plan: Acute kidney injury possibly related to obstruction or period of hypotension. 11/22: Renal ultrasound. Intraluminal mass versus debris within the urinary bladder completely encasing the Hernández catheter. Mass versus debris within the urinary bladder completely encasing the Hernández catheter. Simple right renal cyst. No evidence of hydronephrosis Urology is following the patient. S/p Cystoscopy 11/25 with clot removal and fulguration of bleeding sites. Plan Creatinine has remained stable. Hypocalcemia noted on replacement Continue Lasix decrease to daily plan for discharge Bactrim discontinued if antibiotics needed please change to antibiotic less nephrotoxic Patient is cleared for discharge from a nephrology stand point however will need to be followed outpatient. (2) Gross hematuria ICD Codes: R31.0 - Gross hematuria Status: Acute Plan: Indwelling hernández catheter. Urology consulted s/p Cystoscopy 11/25 (3) Obstructive uropathy ICD Codes: N13.9 - Obstructive and reflux uropathy, unspecified Status: Acute (4) BPH (benign prostatic hyperplasia) ICD Codes: N40.0 - Benign prostatic hyperplasia without lower urinary tract symptoms Status: Acute (5) Hypertension ICD Codes: I10 - Essential (primary) hypertension Status: Acute Plan: Well controlled (Karen Ch) Problem List: (1) KIARA (acute kidney injury) ICD Codes: N17.9 - Acute kidney failure, unspecified Plan: Acute kidney injury possibly related to obstruction or period of hypotension. 11/22: Renal ultrasound. Intraluminal mass versus debris within the urinary bladder completely encasing the Hernández catheter. Mass versus debris within the urinary bladder completely encasing the Hernández catheter. Simple right renal cyst. No evidence of hydronephrosis Urology is following the patient. S/p Cystoscopy 11/25 with clot removal and fulguration of bleeding sites. Plan Creatinine has remained stable. Hypocalcemia noted on replacement Continue Lasix decrease to daily plan for discharge Bactrim discontinued if antibiotics needed please change to antibiotic less nephrotoxic Patient is cleared for discharge from a nephrology stand point however will need to be followed outpatient. (2) Gross hematuria ICD Codes: R31.0 - Gross hematuria Status: Acute Plan: Indwelling hernández catheter. Urology consulted s/p Cystoscopy 11/25 (3) Obstructive uropathy ICD Codes: N13.9 - Obstructive and reflux uropathy, unspecified Status: Acute (4) BPH (benign prostatic hyperplasia) ICD Codes: N40.0 - Benign prostatic hyperplasia without lower urinary tract symptoms Status: Acute (5) Hypertension ICD Codes: I10 - Essential (primary) hypertension Status: Acute Plan: Well controlled (Ashley Pal MD) Karen Ch Dec 08, 2017 10:10 Ashley Pal MD Dec 08, 2017 21:58
[2017-12-09] MEDS ORDERED: FUROSEMIDE 20 MG TAB PO SCH (09:00)
[2017-12-09 20:45] LABS: HEMOGLOBIN A1C 4.6 % (4.3-6.0)
== END 2017-12-08 13:50 | disposition home or self-care (01) | DRG 248 ==
LOC: NEPC 11:29 → INTOOBSV 14:13 → NEDA 14:13 → N05B 17:08 → HCIS 11-13 14:36 → HCIN 11-13 15:38 → OBSVTOIN 11-13 16:48 → HCVI 11-13 17:33 → HCPC 11-16 09:04 → HIMW 11-17 19:40 → HCIS 11-26 22:34 → HIME 11-28 23:10 → HIMW 11-30 18:30
PROVIDERS: ADMIT Hospitalist; ATTEND Hospitalist
PROC: 0V508ZZ Destruction of Prostate, Via Natural or Artificial Opening Endoscopic (ICD-10-PCS; 2017-11-12)
PROC: 02703DZ Dilation of Coronary Artery, One Artery with Intraluminal Device, Percutaneous Approach (ICD-10-PCS; principal; 2017-11-13)
PROC: 30233N1 Transfusion of Nonautologous Red Blood Cells into Peripheral Vein, Percutaneous Approach (ICD-10-PCS; 2017-11-13)
PROC: 4A023N7 Measurement of Cardiac Sampling and Pressure, Left Heart, Percutaneous Approach (ICD-10-PCS; 2017-11-13)
PROC: B2151ZZ Fluoroscopy of Left Heart using Low Osmolar Contrast (ICD-10-PCS; 2017-11-13)
PROC: B2111ZZ Fluoroscopy of Multiple Coronary Arteries using Low Osmolar Contrast (ICD-10-PCS; 2017-11-13)
PROC: 02HV33Z Insertion of Infusion Device into Superior Vena Cava, Percutaneous Approach (ICD-10-PCS; 2017-11-21)
PROC: 0T5C8ZZ Destruction of Bladder Neck, Via Natural or Artificial Opening Endoscopic (ICD-10-PCS; 2017-11-25)
PROC: 0TCB8ZZ Extirpation of Matter from Bladder, Via Natural or Artificial Opening Endoscopic (ICD-10-PCS; 2017-11-25)
DX: I21.02 ST elevation (STEMI) myocardial infarction involving left anterior descending coronary artery (principal); J96.91 Respiratory failure, unspecified with hypoxia; K72.00 Acute and subacute hepatic failure without coma; I50.23 Acute on chronic systolic (congestive) heart failure; R57.8 Other shock; E87.2 Acidosis; D62 Acute posthemorrhagic anemia; I13.0 Hypertensive heart and chronic kidney disease with heart failure and stage 1 through stage 4 chronic kidney disease, or unspecified chronic kidney disease; K56.7 Ileus, unspecified; I42.9 Cardiomyopathy, unspecified; I47.2 Ventricular tachycardia; N17.9 Acute kidney failure, unspecified; N13.8 Other obstructive and reflux uropathy; N39.0 Urinary tract infection, site not specified; N42.1 Congestion and hemorrhage of prostate; N40.1 Benign prostatic hyperplasia with lower urinary tract symptoms; N18.2 Chronic kidney disease, stage 2 (mild); F17.210 Nicotine dependence, cigarettes, uncomplicated; K57.90 Diverticulosis of intestine, part unspecified, without perforation or abscess without bleeding; K40.90 Unilateral inguinal hernia, without obstruction or gangrene, not specified as recurrent; N32.89 Other specified disorders of bladder; I25.10 Atherosclerotic heart disease of native coronary artery without angina pectoris; E87.6 Hypokalemia; R33.8 Other retention of urine; K21.9 Gastro-esophageal reflux disease without esophagitis; E86.0 Dehydration; J44.9 Chronic obstructive pulmonary disease, unspecified; H91.90 Unspecified hearing loss, unspecified ear; E78.5 Hyperlipidemia, unspecified; E83.51 Hypocalcemia; E88.09 Other disorders of plasma-protein metabolism, not elsewhere classified; N28.1 Cyst of kidney, acquired; G47.00 Insomnia, unspecified; Z82.49 Family history of ischemic heart disease and other diseases of the circulatory system
CPT/HCPCS: 36430; 36556; 36600; 71045; 71250; 74018; 74176; 76604; 76775; 76937; 80048; 80053; 80061; 80076; 80202; 81001; 82533; 82550; 82552; 82805; 82948; 83036; 83605; 83690; 83735; 83880; 84100; 84132; 84155; 84439; 84443; 84484; 85002; 85007; 85014; 85018; 85025; 85027; 85347; 85384; 85610; 85730; 86850; 86900; 86901; 86920; 87040; 87086; 87641; 92941; 93005; 93306; 93458; 94003; 94150; 94640; 94664; C1725; C1769; C1876; C1887; C1893; C9113; J0131; J0282; J0360; J0610; J0690; J0692; J0696; J0744; J1100; J1170; J1644; J1815; J1940; J2060; J2212; J2250; J2270; J2370; J2405; J2710; J2765; J3010; J3246; J3370; J3475; J3480; J7030; J7040; J7050; J7120; J7613; P9016; Q9967